=== PATIENT | male | born 1960 | race Caucasian/White ===

== ENCOUNTER 2016-06-11 13:42 | Inpatient (IN) | payer OTHER ==
[~2016-06-11] VITALS: Ht 167.6 cm; Wt 73.5 kg
[2016-06-11 13:42] VITALS: BP 120/77; PULSE 165; RESP 16; TEMP 97.7; O2SAT 96
[~2016-06-11 13:42] MED LIST: BUSP10TA3 PO; CAR30 PO; DABI150C PO; DIGO125T79 PO; FAMO20TA8 PO; FOLI-43 PO; IPRA14.73 IH; IPRA4AER IH; LIB10 PO; LIB25 PO; METO50TA7 PO; PANT40TA4 PO; PROP225T2 PO; THIA100T13 PO; THIA50TA PO
--- NOTE | 2016-06-11 13:43 | NUR ---
Telemetry strip printed and interpreted as uncontrolled a-fib. HR: 176
--- NOTE | 2016-06-11 13:46 | NUR ---
Tanya bailey in [facility] - 06/11/16 at 1424 by SDMTWA Telemetry strip printed and interpreted as RVR. HR: 176
--- NOTE | 2016-06-11 13:50 | NUR ---
Patient to ER bed 4 to gown for evaluation. Side rails up.
[2016-06-11] MEDS ORDERED: DILTIAZEM HCL 25 MG/5 ML VIAL IVP ONE (14:00)
[2016-06-11] MEDS ORDERED: LORazepam 2 MG/ML VIAL (FOR ER USE) IVP ONE (14:00)
[2016-06-11] MEDS ORDERED: DILTIAZEM HCL 125 MG in D5W 100 ML IV ONE ×2 (14:00→14:30)
--- NOTE | 2016-06-11 14:08 | NUR ---
Report given to mo ward
--- NOTE | 2016-06-11 14:12 | NUR ---
Patient to ER with IV 20G placed by EMT. IV patent, no signs of infiltration
[2016-06-11] MEDS ORDERED: DILTIAZEM HCL 125 MG/25 ML VIAL IV ONE (14:15)
[2016-06-11 14:19] LABS: BASOPHILS # (AUTO) 0.2 K/uL (0.0-0.2); BASOPHILS % (AUTO) 1.8 % (0.0-2.0); EOSINOPHILS % (AUTO) 0.2 % (0.0-4.0); HEMATOCRIT 46.3 % (36-54); HEMOGLOBIN 15.4 g/dL (14.0-18.0); LYMPHOCYTES # (AUTO) 1.1 K/uL (1.0-5.5); LYMPHOCYTES % (AUTO) 9.7 % (20.5-51.5); MEAN CORPUSCULAR HEMOGLOBIN 32 pg (27-31); MEAN CORPUSCULAR HGB CONC 33 % (32-36); MEAN CORPUSCULAR VOLUME 96 fL (79.0-98.0); MONOCYTES # (AUTO) 1.1 K/uL (0.0-1.0); MONOCYTES % (AUTO) 9.6 % (1.7-9.3); NEUTROPHILS # (AUTO) 8.8 K/uL (1.8-7.7); NEUTROPHILS % (AUTO) 78.7 % (40.0-70.0); PLATELET COUNT (AUTO) 107 K/uL (130-430); RED BLOOD CELL COUNT(AUTO) 4.84 MIL/uL (4.2-6.2); RED CELL DISTRIBUTION WIDTH 14.6 % (9.0-15.0); WHITE BLOOD COUNT (AUTO) 11.2 K/uL (4.8-10.8)
[2016-06-11 14:28] LABS: CALCIUM 9.2 mg/dL (8.4-11.0); CREATININE 1.34 mg/dL (0.55-1.30); POTASSIUM 3.3 mmol/L (3.5-5.1)
[2016-06-11 14:29] LABS: INR 1.1 (0.80-1.20); PROTHROMBIN TIME 12.1 SECS (9.5-12.5)
[2016-06-11 14:36] LABS: TOTAL BILIRUBIN 4.3 mg/dL (0.0-1.0)
[2016-06-11 14:37] LABS: ALBUMIN 4.5 g/dL (3.4-4.8); TOTAL PROTEIN, SERUM 8.7 g/dL (6.4-8.3)
--- NOTE | 2016-06-11 14:40 | NUR ---
# 22 gauge angiocath placed to RIGHT HAND. Use of asceptic technique. Opsite placed over site. Blood return noted. Flushed with 10 cc of normal saline. No evidence of infiltration noted. Patient tolerated well.
--- NOTE | 2016-06-11 14:50 | NUR ---
Patient does not meet SEPSIS protocol
[2016-06-11] MEDS ORDERED: HYDR-1189 PO (14:51)
--- NOTE | 2016-06-11 14:52 | NUR ---
Medication reconciliation completed with information provided by - patient states lybrium & norco, does not know how often or how many mgs. Any prior medication reconciliation on file was reviewed and corrected.
[2016-06-11] MEDS ORDERED: MAGNESIUM SULFATE 50 ML IV ONE (15:00)
[2016-06-11] MEDS ORDERED: POTASSIUM CHLORIDE 40 MEQ in D5W 250 ML IV ONE (15:00)
[2016-06-11] MEDS ORDERED: POTASSIUM CHLORIDE 20 MEQ TAB.PRT.SR PO ONE (15:00)
[2016-06-11] MEDS ORDERED: NS 500 ML IV ONE (15:00)
--- NOTE | 2016-06-11 15:03 | NUR ---
Patient states "i can't give any urine, i do not need to pee" Patient refuses catheter.
--- NOTE | 2016-06-11 15:09 | NUR ---
Patient will be admitted to care of DR GHOSH. Admitted to TELE IN unit. Will go to room 131B. Belongings list completed. Summary report printed. Report given to RN.
[2016-06-11] MEDS ORDERED: FOLIC ACID 1 MG, THIAMINE HCL 100 MG, MAGNESIUM SULFATE 1 GM, MVI 10 ML in NACL 0.9% 1,... IV ONE (15:15)
[2016-06-11] MEDS ORDERED: ACETAMINOPHEN 325 MG TABLET PO PRN (15:15)
--- NOTE | 2016-06-11 15:29 | NUR ---
Transfer to [facility] via ACLS protocol. Licensed nurse present. IV present no signs or symptoms of infiltration.
--- NOTE | 2016-06-11 15:57 | NUR ---
ADMIT NOTE Received pt from ER to the floor with a diagnosis of Uncontrolled A.Fib. Admission process initiated. patient oriented to pain management, safety and call light-teach back done.
--- NOTE | 2016-06-11 16:15 | NUR ---
Cardiology consult Order received for a consult with Dr Olivares for uncontrolled afib. Spoke with Esbi at his office. Will follow up as needed.
[2016-06-11 16:32] VITALS: BP 121/79; PULSE 104; RESP 16; TEMP 99; O2SAT 100
--- NOTE | 2016-06-11 17:00 | NUR ---
NOTES RECEIVED PATIENT ON BED AWAKE.BREATHING EVEN AND UNLABORED COMPLAINING OF MILD PAIN TO LOWER BACK.WITH CARDIZEM DRIP RUNNING AT 10ML/HR;TOLERATING WELL.WITH K-RIDER AT 68 ML/HR;TOLERATING WELL.BODY CHECK DONE;WITH BLACK SCAB TO LEFT KNEE;PER PATIENT HE GOT IT WHEN HE FELL A FEW WEEKS AGO.SAFETY AND FALL PRECAUTIONS IN PLACE.CALL LIGHT WITHIN REACH.ORIENTED TO ROOM
--- NOTE | 2016-06-11 17:11 | NUR ---
NOTES CAME AND EXAMINED THE PATIENT;WITH ORDERS AND CARRIED OUT
--- NOTE | 2016-06-11 18:19 | NUR ---
NOTES CHECKED PATIENT'S HEART RATE;98-110;NO ACUTE DISTRESS
--- NOTE | 2016-06-11 18:42 | NUR ---
CLOSING NOTES PATIENT ON BED ASLEEP.BREATHING EVEN AND UNLABORED STILL WITH HEART RATE FLUCTUATIONS FROM 90-110.NO COMPLAIN OF PAIN OR DISCOMFORT.IVF INFUSING WELL WITH K-RIDER;TOLERATING WELL;NO SIGNS AND SYMPTOMS OF INFILTRATION.SAFETY AND FALL PRECAUTIONS IN PLACE.CALL LIGHT WITHIN REACH.WILL ENDORSE TO NEXT SHIFT ACCORDINGLY
[2016-06-11 20:00] VITALS: BP 117/65; PULSE 102; RESP 18; TEMP 98; O2SAT 97
--- NOTE | 2016-06-11 20:00 | NUR ---
Initial Notes Received patient resting in bed, alert, awake, oriented. Patient denies any acute distress or pain at this time. Patient breathing even and unlabored on room air. IV site patent/clean/dry. Educated patient on use of call light for assistance and fall precautions. Fall precautions in place, side rails up x3, bed lowest position, room close to nursing station. Patient refusing non-slip socks and bed alarm at this time. Needs addressed, will continue to monitor. Urine sample sent to lab for ordered testing.
[2016-06-11 20:13] LABS: BILIRUBIN,URINE 2+ (NEGATIVE); CLARITY/URINE SL HAZY (CLEAR); COLOR,URINE ORANGE (YELLOW); GLUCOSE,URINE NEGATIVE (NEGATIVE); KETONES,URINE 3+ (NEGATIVE); LEUKOCYTE ESTERASE ,URINE NEGATIVE (NEGATIVE); NITRITE, URINE NEGATIVE (NEGATIVE); PROTEIN URINE 2+ (NEGATIVE)
[2016-06-11 20:17] LABS: BLOOD, URINE TRACE (NEGATIVE)
[2016-06-11 20:32] LABS: BACTERIA,URINE FEW /HPF (None Seen); FINE GRANULAR CASTS,URINE 0-10 /LPF (None Seen); MUCUS,URINE 1+ /LPF (None Seen); RBC,URINE NONE SEEN /HPF (0-3); WBC,URINE 0-3 /HPF (0-3)
[2016-06-11] MEDS: DILTIAZEM HCL 60 MG TABLET PO SCH (21:10)
[2016-06-11] MEDS: LORazepam 2 MG/ML VIAL IVP PRN (21:10)
--- NOTE | 2016-06-11 22:00 | NUR ---
Rounds Patient resting in bed with eyes closed, easily aroused upon nurse entering room. Patient denies any acute distress or pain at this time. Breathing even and unlabored. Needs addressed. Call light in hand, fall precautions in place. Will continue to monitor.
[2016-06-11 23:48] VITALS: BP 109/59; PULSE 84; RESP 18; TEMP 96.8; O2SAT 97
--- NOTE | 2016-06-12 00:10 | NUR ---
Rounds Rounds Patient resting in bed with eyes closed. No acute distress noted, breathing even and unlabored. Call light in hand, fall precautions in place. Will continue to monitor for changes and safety.
--- NOTE | 2016-06-12 02:01 | NUR ---
Rounds Patient continue to be resting in bed with eyes closed. No distress noted, breathing even and unlabored. Call light in hand, fall precautions in place. Will continue to monitor.
--- NOTE | 2016-06-12 04:17 | NUR ---
Rounds Patient resting in bed, awake. Patient denies any acute distress or pain. Breathing even and unlabored. Snack given to patient, needs addressed. Call light in hand, will continue to monitor.
[2016-06-12 04:27] VITALS: BP 117/68; PULSE 93; RESP 18; TEMP 97.2; O2SAT 94
[2016-06-12] MEDS: LORazepam 2 MG/ML VIAL IVP PRN ×2 (05:02→21:14)
[2016-06-12] MEDS: DILTIAZEM HCL 60 MG TABLET PO SCH (05:02)
--- NOTE | 2016-06-12 06:33 | NUR ---
Closing Notes Patient resting in bed bed with eyes closed, easily aroused. Patient denies any acute distress or pain at this time. Breathing even and unlabored. IV site patent/clean/dry. Patient currently sinus on monitor. Needs address throughout shift. Call light in hand, fall precautions in place. Will continue to monitor for changes and safety, and endorse all patient care/needs to oncoming nurse.
[2016-06-12 07:29] LABS: BASOPHILS % (AUTO) 0.4 % (0.0-2.0); EOSINOPHILS # (AUTO) 0.1 K/uL (0.0-0.4); EOSINOPHILS % (AUTO) 1.3 % (0.0-4.0); HEMATOCRIT 36.8 % (36-54); LYMPHOCYTES # (AUTO) 1.2 K/uL (1.0-5.5); LYMPHOCYTES % (AUTO) 19.6 % (20.5-51.5); MEAN CORPUSCULAR HEMOGLOBIN 33 pg (27-31); MEAN CORPUSCULAR HGB CONC 35 % (32-36); MEAN CORPUSCULAR VOLUME 94 fL (79.0-98.0); MONOCYTES % (AUTO) 15.7 % (1.7-9.3); NEUTROPHILS # (AUTO) 3.8 K/uL (1.8-7.7); PLATELET COUNT (AUTO) 59 K/uL (130-430); RED BLOOD CELL COUNT(AUTO) 3.94 MIL/uL (4.2-6.2); RED CELL DISTRIBUTION WIDTH 14.6 % (9.0-15.0); WHITE BLOOD COUNT (AUTO) 6.1 K/uL (4.8-10.8)
[2016-06-12 07:44] LABS: CALCIUM 8.9 mg/dL (8.4-11.0); CREATININE 1.31 mg/dL (0.55-1.30); POTASSIUM 3.8 mmol/L (3.5-5.1)
[2016-06-12 07:48] LABS: ALBUMIN 3.7 g/dL (3.4-4.8); BILIRUBIN,DIRECT 1.9 mg/dL (0.0-0.3); TOTAL BILIRUBIN 3.6 mg/dL (0.0-1.0); TOTAL PROTEIN, SERUM 7.3 g/dL (6.4-8.3)
[2016-06-12 08:22] VITALS: BP 115/71; PULSE 94; RESP 16; TEMP 97.7; O2SAT 93
--- NOTE | 2016-06-12 08:23 | NUR ---
Initial Note Patient A/O x4. Respirations even and unlabored. IV access patent. Denies chest pain and generalized discomfort at this time.Use of call light reviewed with patient. Bed in lowest and locked position. Fall and safety precautions in place. Encouraged patient to call for assistance, patient acknowledged understanding.
[2016-06-12] MEDS ORDERED: METOPROLOL SUCCINATE 50 MG TAB.SR.24H (TOPROL XL) PO ONE ×2 (09:30→10:15)
[2016-06-12] MEDS: THIAMINE HCL 100 MG TABLET PO SCH (09:30)
[2016-06-12] MEDS ORDERED: THIAMINE HCL 100 MG TABLET PO ONE (10:15)
[2016-06-12 11:31] VITALS: BP 110/68; PULSE 81; RESP 16; TEMP 98.1; O2SAT 97
[2016-06-12 11:35] VITALS: Ht 167.6 cm; Wt 73.5 kg
--- NOTE | 2016-06-12 15:34 | NUR ---
Notes Patient denies nausea, vomiting. Stated he is tolerating diet and has been drinking lots of water.
[2016-06-12 15:39] VITALS: BP 102/63; PULSE 73; RESP 16; TEMP 97.1; O2SAT 96
--- NOTE | 2016-06-12 16:13 | NUR ---
RETAIL INTERIOR DESIGNER NOTE: Pt referred to Fire Sprinkler Apparatus Inspector by MD due to ETOH abuse. Pt is known to Fire Sprinkler Apparatus Inspector from previous admissions. According to pt's chart, pt is a 55 year old male admitted with the diagnosis of Uncontrolled Atrial Fibrillation, ETOH abuse. Pt has a history of Hyperlipidemia, Hypertension, alcoholism, and chronic back pain. GENERAL REPAIRER met with pt at bedside. Pt appears to be alert and oriented. Pt presents with calm and pleasant demeanor. GENERAL REPAIRER provided pt with substance abuse resources. GENERAL REPAIRER offered to provided pt with Alcoholics Anonymous information, but pt declined. Pt reports that he drinks 6 drinking glasses of rum per day. Pt states that when he experiences back pain and the pain medication does not help, pt starts drinking more. Pt reports that he did not eat much the two days prior to admission and due to the drinking, pt became dehydrated. Pt reports that he has plenty of food at home and is independent with all ADL's including cooking his own meals. Pt states that he lives in an apartment by himself. Pt's mother lives in [place] and pt's sister lives in [place]. Pt reports that his back is feeling much better since he was admitted to the hospital. Pt states that he spoke with his MD, Dr. Saez, and the MD is recommending physical therapy to help treat pt's back pain. Pt reports that he has not done physical therapy in the past and is open to trying it to help with his back pain. Pt did not express any other needs or concerns at this time. GENERAL REPAIRER encouraged pt to contact Fire Sprinkler Apparatus Inspector if any needs or concerns arise. GENERAL REPAIRER updated pt's Nurse, Derrek, regarding resources provided to pt. Fire Sprinkler Apparatus Inspector will continue to remain available and follow up as needed.
--- NOTE | 2016-06-12 18:36 | NUR ---
Closing Note Patient needs met throughout shift. Hourly rounds completed. Patient remained free of acute distress. Tolerated diet well. Ambulated to restroom, steady gait. Had bowel movement. Will continue to monitor until patient care is endorsed to oncoming shift nurse.
[2016-06-12 20:00] VITALS: BP 113/66; PULSE 85; RESP 18; TEMP 97.5; O2SAT 97
--- NOTE | 2016-06-12 20:00 | NUR ---
Initial Notes Received patient resting in bed, awake, alert, oriented. Patient denies any acute distress or pain at this time. Breathing even and unlabored. Vital signs stable. IV site to left AC patent/clean/dry. Educated patient on use of call light for assistance and fall precautions, patient verbalized understanding. Call light in hand, will continue to monitor.
--- NOTE | 2016-06-12 22:02 | NUR ---
Rounds Patient resting in bed, awake watching TV. Patient denies any acute distress or pain at this time. Needs addressed. Call light in hand, will continue to monitor.
[2016-06-12 23:57] VITALS: BP 100/58; PULSE 68; RESP 18; TEMP 98.3; O2SAT 96
--- NOTE | 2016-06-13 | NUR ---
Rounds Patient resting in bed, awake. Patient denies any acute distress or pain. Breathing even and unlabored. Needs addressed, call light in hand. Will continue to monitor.
--- NOTE | 2016-06-13 02:00 | NUR ---
Rounds Patient resting in bed, awake on phone. Patient denies any acute distress or pain at this time. Breathing even and unlabored. Needs addressed. Call light in hand, will continue to monitor.
[2016-06-13 04:03] VITALS: BP 115/71; PULSE 65; RESP 18; TEMP 98.4; O2SAT 97
--- NOTE | 2016-06-13 04:05 | NUR ---
Rounds Patient resting in bed with eyes closed, easily aroused. Patient denies any acute distress or pain at this time. Needs addressed, call light in hand. Will continue to monitor.
--- NOTE | 2016-06-13 06:34 | NUR ---
Closing Notes Patient resting in bed, awake watching TV. Patient denies any acute distress or pain. Breathing even and unlabored. IV site patent/clean/dry. Needs addressed throughout shift. Call light in hand, fall precautions in place. Will continue to monitor for changes and safety, and endorse all patient care/needs to oncoming nurse.
--- NOTE | 2016-06-13 08:00 | NUR ---
Pt inroom in bed resting @ this time pt has no c/o any pain or discomfort @ this time nurse continue to monitor pt
[2016-06-13] MEDS: THIAMINE HCL 100 MG TABLET PO SCH (08:54)
[2016-06-13 08:55] VITALS: BP 107/57; PULSE 82; RESP 18; TEMP 98.3; O2SAT 98
[2016-06-13] MEDS ORDERED: METOPROLOL SUCCINATE 50 MG TAB.SR.24H (TOPROL XL) PO SCH (09:00)
--- NOTE | 2016-06-13 10:35 | NUR ---
Pt remain in room in bed @ this time pt is medication complaint took AM medication no adverse reaction noticed nurse continue to monitor
--- NOTE | 2016-06-13 12:20 | NUR ---
Pt in bed watching TV @ this time no c/o any discomfort @ this time
[2016-06-13 12:42] VITALS: BP_SYST 106; BP_SYST 111; BP_DIAS 67; BP_DIAS 72; PULSE 66; PULSE 71; RESP 17; RESP 18; TEMP 97.1; TEMP 97.9; O2SAT 96; O2SAT 98
--- NOTE | 2016-06-13 14:10 | NUR ---
D/C Patient Patient given medication reconciliation form and D/C instructions. Exit Care provided. Patient verbalized understanding. MD discussed with patient the results and treatment provided. Ambulatory with steady gait for discharge to home. Patient in stable condition, ID band removed. IV catheter removed, intact and dressing applied, no active bleeding. Rx of [] given. Patient educated on pain management. All belongings sent with patient.
--- NOTE | 2016-06-17 14:53 | NUR ---
Discharge Follow Up Phone Calls: MANAGER E LEARNING called and left voice mails for pt ([phone]) on 06/14/16 and today. Pt called back today. Pt states that he is doing well; there are no questions regarding discharge or medication instructions; pt has a follow up appointment with PCP, Dr. Saez, scheduled for 06/21/16. Pt did not express any other needs or concerns and denied the need for additional follow up at this time. No further follow up phone calls required at this time.
== END 2016-06-13 13:50 | disposition home or self-care (01) | DRG 309 ==
LOC: SED 13:42 → SMU 15:01 → STU 15:10
PROVIDERS: ADMIT Internal Medicine; ATTEND Internal Medicine
DX: I48.0 Paroxysmal atrial fibrillation (principal); E46 Unspecified protein-calorie malnutrition; E78.5 Hyperlipidemia, unspecified; F10.20 Alcohol dependence, uncomplicated; F17.210 Nicotine dependence, cigarettes, uncomplicated; I10 Essential (primary) hypertension; K74.60 Unspecified cirrhosis of liver; G89.29 Other chronic pain; M54.9 Dorsalgia, unspecified; Z68.26 Body mass index [BMI] 26.0-26.9, adult
CPT/HCPCS: 36415; 71010; 80053; 81000-TC; 82248-TC; 83880; 84484; 85025; 85610-TC; 87081; 93005; 96361; 96374; 96375; 99291; J2060; J3475; J3480; J3490; J7050; J7060

== ENCOUNTER 2016-07-06 22:12 | Inpatient (IN) | payer OTHER ==
[2016-06-12 11:35] VITALS: Ht 167.6 cm; Wt 74.8 kg
[~2016-07-06] VITALS: Ht 167.6 cm; Wt 74.8 kg
[~2016-07-06 22:12] MED LIST changes: +HYDR-1189 PO
[2016-07-06 22:17] VITALS: BP 137/85; PULSE 136; RESP 16; TEMP 97.7; O2SAT 96
--- NOTE | 2016-07-06 22:20 | NUR ---
Patient to ER bed 8 to gown for evaluation. Side rails up. Report given to CHACORTA
--- NOTE | 2016-07-06 22:30 | NUR ---
DR. PEREZ AT BEDSIDE EXAMINING THE PT.
--- NOTE | 2016-07-06 22:40 | NUR ---
PT. TO ER AAOx4 C/O HAND TREMORS, DEHYDRATION, HEAVY DRINKING, STATES THAT HIS HEART FEELS RAISING, LAST DRINK WAS THIS MORNING, ADMITA TO HEAVY DRINKING, STATES HE THINKS HE MIGHT BE GOING THROUGH WITHDRAWALS, NO C/O PAIN, DENIES CHEST PAIN, LUNGS CLEAR TO AUSCULTATION
[2016-07-06] MEDS ORDERED: NACL 0.9% 1,000 ML IV ONE (22:44)
--- NOTE | 2016-07-06 23:00 | NUR ---
# 20 gauge angiocath placed to RAC. Use of asceptic technique. Opsite placed over site. Blood return noted. Flushed with 10 cc of normal saline. No evidence of infiltration noted. Patient tolerated well.
--- NOTE | 2016-07-06 23:08 | NUR ---
X RAY AT BEDSIDE
[2016-07-06] MEDS ORDERED: KETOROLAC TROMETHAMINE 30 MG VIAL IVP ONE (23:15)
[2016-07-06 23:27] LABS: BASOPHILS # (AUTO) 0.3 K/uL (0.0-0.2); BASOPHILS % (AUTO) 2.7 % (0.0-2.0); EOSINOPHILS # (AUTO) 0.1 K/uL (0.0-0.4); EOSINOPHILS % (AUTO) 1.4 % (0.0-4.0); HEMATOCRIT 45.7 % (36-54); HEMOGLOBIN 15.4 g/dL (14.0-18.0); LYMPHOCYTES % (AUTO) 19.3 % (20.5-51.5); MEAN CORPUSCULAR HEMOGLOBIN 32 pg (27-31); MEAN CORPUSCULAR HGB CONC 34 % (32-36); MEAN CORPUSCULAR VOLUME 94 fL (79.0-98.0); MONOCYTES # (AUTO) 0.7 K/uL (0.0-1.0); MONOCYTES % (AUTO) 7.3 % (1.7-9.3); NEUTROPHILS % (AUTO) 69.3 % (40.0-70.0); PLATELET COUNT (AUTO) 143 K/uL (130-430); RED BLOOD CELL COUNT(AUTO) 4.84 MIL/uL (4.2-6.2); RED CELL DISTRIBUTION WIDTH 14.8 % (9.0-15.0); WHITE BLOOD COUNT (AUTO) 10.1 K/uL (4.8-10.8)
[2016-07-06 23:44] LABS: CALCIUM 8.6 mg/dL (8.4-11.0); CREATININE 0.78 mg/dL (0.55-1.30); POTASSIUM 3.1 mmol/L (3.5-5.1)
[2016-07-06 23:47] LABS: ALBUMIN 4.1 g/dL (3.4-4.8); INR 1.1 (0.80-1.20); PROTHROMBIN TIME 11.8 SECS (9.5-12.5); TOTAL PROTEIN, SERUM 7.7 g/dL (6.4-8.3)
[2016-07-07] VITALS (14 sets, daily range): BP systolic 84–132; BP diastolic 45–86; PULSE 78–142; RESP 13–20; TEMP 97.4–98.8; O2SAT 92–98
[2016-07-07] MEDS ORDERED: LORazepam 1 MG TABLET PO ONE
--- NOTE | 2016-07-07 00:30 | NUR ---
Medication reconciliation - patient states no meds for Afib, also states that he is suppored to take antidepressant med but has not taken it in a long time
[2016-07-07 00:38] LABS: BILIRUBIN,URINE NEGATIVE (NEGATIVE); BLOOD, URINE NEGATIVE (NEGATIVE); CLARITY/URINE CLEAR (CLEAR); COLOR,URINE YELLOW (YELLOW); GLUCOSE,URINE NEGATIVE (NEGATIVE); KETONES,URINE TRACE (NEGATIVE); LEUKOCYTE ESTERASE ,URINE NEGATIVE (NEGATIVE); NITRITE, URINE NEGATIVE (NEGATIVE); PROTEIN URINE TRACE (NEGATIVE)
[2016-07-07 00:45] LABS: BACTERIA,URINE RARE /HPF (None Seen); MUCUS,URINE None Seen /LPF (None Seen); RBC,URINE 0-3 /HPF (0-3); WBC,URINE 0-3 /HPF (0-3)
[2016-07-07] MEDS ORDERED: NACL 0.9% 1,000 ML IV ONE (00:45)
[2016-07-07] MEDS ORDERED: ONDANSETRON HCL 4 MG/2 ML VIAL IVP ONE (00:45)
[2016-07-07 00:47] LABS: BARBITURATE, URINE NEGATIVE (NEG <=200); BENZODIAZEPINE, URINE POSITIVE (NEG <=150); CANNABINOID, URINE NEGATIVE (NEG <=50); COCAINE, URINE NEGATIVE (NEG <=150); METHAMPHETAMINES SCREEN,URINE NEGATIVE (NEG <=500); OPIATE, URINE NEGATIVE (NEG <=100); PHENCYCLIDINE SCREEN,URINE NEGATIVE (NEG <=25); UR TRICYCLIC ANTIDEPRESSANTS NEGATIVE (NEG <=300); URINE AMPHETAMINE NEGATIVE (NEG <=500); URINE METHADONE NEGATIVE (NEG <=200); URINE OXYCODONE SCREEN NEGATIVE (NEG <=100); URINE PROPOXYPHENE SCREEN NEGATIVE (NEG <=300)
--- NOTE | 2016-07-07 00:57 | NUR ---
Patient will be admitted to care of DR BRADY. Admitted to ICU unit. Will go to room 8. Belongings list completed. Summary report printed. Report given to LYUDMILA.
--- NOTE | 2016-07-07 01:00 | NUR ---
Kdur 60mEq PO STAT order by MD Marcano given by Carole COREAS
--- NOTE | 2016-07-07 01:14 | NUR ---
Transfer to ICU8 via ACLS protocol. Licensed nurse present. IV present no signs or symptoms of infiltration.
[2016-07-07] MEDS ORDERED: DILTIAZEM HCL 240 MG CAP.SR.24H PO ONE (01:15)
[2016-07-07] MEDS ORDERED: DILTIAZEM HCL 25 MG/5 ML VIAL IVP PRN (01:15)
[2016-07-07] MEDS ORDERED: POTASSIUM CHLORIDE 20 MEQ TAB.PRT.SR PO ONE (01:15)
[2016-07-07] MEDS ORDERED: FOLIC ACID 1 MG, THIAMINE HCL 100 MG, MAGNESIUM SULFATE 1 GM, MVI 10 ML in NACL 0.9% 1,... IV ONE (01:15)
[2016-07-07] MEDS ORDERED: POTASSIUM CHLORIDE 20 MEQ TAB.PRT.SR ONE (01:19)
--- NOTE | 2016-07-07 01:45 | NUR ---
Admission Pt awake alert oriented x 4. Clear speech. Dr. Marcano admitting physician. breathing symmetrically. Non labored breathing RA at 94% at the time. IV on the right AC saline locked. Safety precaution in place. Seizure precaution initiated, HOB elevated. Oriented pt call light, bed and T.v. Verbalized understanding. Educated pt to use call light for assistance. Verbalized understanding. Bed in the lowest positioned, locked. call light within reach. will continue to monitor.
[2016-07-07] MEDS ORDERED: MAGNESIUM SULFATE 1 GM/2 ML VIAL ONE (01:47)
[2016-07-07] MEDS ORDERED: THIAMINE HCL 100 MG/ML VIAL ONE (01:47)
[2016-07-07] MEDS ORDERED: MVI 10 ML VIAL IV ONE (01:48)
[2016-07-07] MEDS ORDERED: FOLIC ACID 5 MG/ML VIAL IV ONE (01:55)
[2016-07-07] MEDS: LORazepam 2 MG/ML VIAL IVP PRN ×5 (01:58→20:24)
--- NOTE | 2016-07-07 03:43 | NUR ---
Pt's heart rate in 150's noted. Administered Cardizem 10mg IVP.
--- NOTE | 2016-07-07 04:45 | NUR ---
Pt's heart rate between 98- 109 BPM noted. will continue to monitor
[2016-07-07] MEDS: chlordiazePOXIDE HCL 25 MG CAPSULE PO SCH ×4 (05:18→23:30)
--- NOTE | 2016-07-07 07:15 | NUR ---
BEGINNING OF SHIFT: Received patient awake and alert x 4, cooperative, verbal, able to make needs known, sitting upright in bed.Patient is on room air, l lungs clear through out.Patient receiving LR at rate of 100cc/hr to LT AC #20, ports patent,flushing with blood return,dressing clean,dry and intact, no signs of redness,infection.Patient is able to move upper and lower extremities independently.Bed locked,in lowest position,call light within easy reach, upper side rails x 2 up, seizure pads in place, HOB elevated.Will continue to monitor.
--- NOTE | 2016-07-07 07:21 | NUR ---
Report given to melody COREAS via SBAR method to continue care.
--- NOTE | 2016-07-07 08:10 | NUR ---
Dr. Olivares aware of consult, now seeing patient
[2016-07-07] MEDS ORDERED: DILTIAZEM HCL 180 MG CAP.SR.24H PO SCH (09:00)
[2016-07-07 09:26] LABS: BASOPHILS # (AUTO) 0.1 K/uL (0.0-0.2); BASOPHILS % (AUTO) 0.7 % (0.0-2.0); EOSINOPHILS # (AUTO) 0.2 K/uL (0.0-0.4); EOSINOPHILS % (AUTO) 1.6 % (0.0-4.0); HEMATOCRIT 42.4 % (36-54); HEMOGLOBIN 14.3 g/dL (14.0-18.0); LYMPHOCYTES # (AUTO) 1.7 K/uL (1.0-5.5); MEAN CORPUSCULAR HEMOGLOBIN 32 pg (27-31); MEAN CORPUSCULAR HGB CONC 34 % (32-36); MEAN CORPUSCULAR VOLUME 95 fL (79.0-98.0); MONOCYTES # (AUTO) 0.8 K/uL (0.0-1.0); MONOCYTES % (AUTO) 7.4 % (1.7-9.3); NEUTROPHILS # (AUTO) 8.6 K/uL (1.8-7.7); NEUTROPHILS % (AUTO) 75.3 % (40.0-70.0); PLATELET COUNT (AUTO) 100 K/uL (130-430); RED BLOOD CELL COUNT(AUTO) 4.46 MIL/uL (4.2-6.2); RED CELL DISTRIBUTION WIDTH 14.8 % (9.0-15.0); WHITE BLOOD COUNT (AUTO) 11.4 K/uL (4.8-10.8)
[2016-07-07 09:43] LABS: CALCIUM 8.1 mg/dL (8.4-11.0); CREATININE 0.8 mg/dL (0.55-1.30); POTASSIUM 3.9 mmol/L (3.5-5.1)
[2016-07-07] MEDS: THIAMINE HCL 100 MG TABLET PO SCH (09:57)
[2016-07-07] MEDS: DILTIAZEM HCL 240 MG CAP.SR.24H PO SCH (09:57)
[2016-07-07] MEDS: FOLIC ACID 1 MG TABLET PO SCH (09:58)
[2016-07-07] MEDS: LR 1,000 ML IV SCH ×2 (09:58→18:23)
[2016-07-07] MEDS: PANTOPRAZOLE GRANULES PACKET 40 MG GT SCH ×2 (10:00→21:00)
--- NOTE | 2016-07-07 10:00 | NUR ---
PT UPDATE: Patient sitting upright in bed, watching television, unlabored breathing to room air.Slight tremors noted.Bed locked,in lowest position,call light within easy reach,HOB elevated,upper side rails x 2 up, seizure pads in place.Pt continues to be monitored.
--- NOTE | 2016-07-07 15:00 | NUR ---
ATIVAN: Patient presented slight visible tremors, complaining of anxiety.Patient given Ativan 1mg/0.5ml IVP over 2 minutes as ordered.Will reassess patient within 1 hour.
--- NOTE | 2016-07-07 15:45 | NUR ---
PATIENT TRANSFER: Report and plan of care given to LYUDMILA Melgar via SBAIYANA method.Patient transferring to tele unit bed 2135.Patient transferred safely on via wheel chair.Vital signs stable. Addendum: 07/07/16 at 1746 by Phillip Phillips RN Transferred to tele room 102
--- NOTE | 2016-07-07 16:26 | NUR ---
Receive Patient: Received patient from ICU, Report from LYUDMILA Fisher. Patient placed to tele monitor. VSS. Call light in reach. Continue to monitor.
--- NOTE | 2016-07-07 16:44 | NUR ---
CALLED ATTENDING , DR BRADY, RE: PAIN MEDICATION. SPOKE TO LEON
[2016-07-07] MEDS: HYDROcodone/ACETAMIN 5-325 MG TAB (NORCO/ VICODIN) PO PRN ×2 (16:58→23:30)
--- NOTE | 2016-07-07 17:41 | NUR ---
Rounds: Pt medicated for c/o pain. Pt tolerates well at this time. Call light in reach. Pt denies pain. Tremors noted to BUE, no seizure activity noted. IV intact to upper extremity infusing well with no redness or swelling noted to site. Pt is able to return demonstrate use of call light and verbalizes understanding of need to call for assist prior to ambulating. Side rails padded. Fall precautions in place. Continue to monitor pt closely.
--- NOTE | 2016-07-07 18:21 | NUR ---
Closing Note: Pt sitting semi-fowlers in bed. No acute signs of distress noted. IV intact and infusing fluids well. Call light in reach. Tremors noted. Seizure pads in place. No seizure activity noted. Side rails padded. Endorse plan of care to NICANOR RN.
--- NOTE | 2016-07-07 19:35 | NUR ---
Initial Notes Pt is A/Ox4, pleasant and cooperative. Pt denies any pain or sob at this time. POC discussed with pt and goal for the shift. Pt states that he would like to get good sleep, and have less tremors in his hands due to etoh and detox. VSS. Breathing is even and unlabored. IV to RAC #20g noted, infusing well with LR@100cc/hr. Safety precautions in place, side rails up x3, with bed in lowest, locked position, bed alarm on at all times, pt asked to call for assist in and out of bed. Pt educated field operations manager light use, and correct back demonstration noted. All needs met at this time. Call light in hand. Will continue to monitor.
--- NOTE | 2016-07-07 20:24 | NUR ---
Ativan Pt c/o bilateral hand tremors and requested Ativan at this time. Covering RN notified and medicated pt with Ativan 1mg IVP as ordered. No acute distress noted. Call light in hand. Will continue to monitor.
--- NOTE | 2016-07-07 23:30 | NUR ---
Pain Management Pt c/o lower back pain 10/12. Pt medicated with Clayton 5-325mg 1 tab as ordered for moderate pain. No acute distress noted. Call light in hand. Will continue to monitor.
--- NOTE | 2016-07-07 23:33 | NUR ---
Pain Management Pt c/o lower back pain 10/12. Pt medicated with [place]aan 5-325mg 1 Tab po as ordered for moderate pain. All scheduled medications given. Warm blanket provided. Pt states that his tremors have almost completely subsided. Pt is up watching tv. All needs met at this time. Call light in hand. Will continue to monitor.
[2016-07-08] VITALS: BP 95/56; PULSE 72; RESP 17; TEMP 97.4; O2SAT 94
--- NOTE | 2016-07-08 02:22 | NUR ---
Rounds Pt is sleeping comfortably in bed at this time. No acute distress noted. Bed alarm on. Call light within reach. Will continue to monitor.
[2016-07-08] MEDS: LORazepam 2 MG/ML VIAL IVP PRN (03:20)
--- NOTE | 2016-07-08 03:20 | NUR ---
Rounds Pt requested Ativan as ordered for anxiety at this time. Covering RN notified and medicated pt with ativan as ordered. All needs met. Call light in hand. Will continue to monitor.
[2016-07-08 04:00] VITALS: BP 105/69; PULSE 75; RESP 18; TEMP 98.9; O2SAT 95
[2016-07-08] MEDS: LR 1,000 ML IV SCH (05:21)
[2016-07-08] MEDS: chlordiazePOXIDE HCL 25 MG CAPSULE PO SCH ×3 (05:45→18:00)
--- NOTE | 2016-07-08 06:37 | NUR ---
Closing Notes Pt is awake, watching tv. Pt denies any pain, stating he feels comfortable at this time. IV intact. No acute distress or sob noted. All needs met throughout shift. Will endorse care to am nurse. Call light within reach.
[2016-07-08 07:26] LABS: BASOPHILS % (AUTO) 0.4 % (0.0-2.0); EOSINOPHILS # (AUTO) 0.3 K/uL (0.0-0.4); HEMOGLOBIN 12.5 g/dL (14.0-18.0); LYMPHOCYTES % (AUTO) 28.4 % (20.5-51.5); MEAN CORPUSCULAR HEMOGLOBIN 33 pg (27-31); MEAN CORPUSCULAR HGB CONC 35 % (32-36); MEAN CORPUSCULAR VOLUME 95 fL (79.0-98.0); MONOCYTES # (AUTO) 0.5 K/uL (0.0-1.0); MONOCYTES % (AUTO) 7.4 % (1.7-9.3); NEUTROPHILS # (AUTO) 4.3 K/uL (1.8-7.7); NEUTROPHILS % (AUTO) 59.8 % (40.0-70.0); RED CELL DISTRIBUTION WIDTH 14.6 % (9.0-15.0)
[2016-07-08 07:35] LABS: CALCIUM 8.1 mg/dL (8.4-11.0); CREATININE 0.77 mg/dL (0.55-1.30); POTASSIUM 3.5 mmol/L (3.5-5.1)
[2016-07-08 07:36] LABS: ALBUMIN 3.1 g/dL (3.4-4.8); TOTAL BILIRUBIN 2.1 mg/dL (0.0-1.0); TOTAL PROTEIN, SERUM 6.1 g/dL (6.4-8.3)
[2016-07-08 07:40] LABS: WHITE BLOOD COUNT (AUTO) 7.1 K/uL (4.8-10.8)
--- NOTE | 2016-07-08 07:41 | NUR ---
AM ROUNDS Pt sitting up in bed eating breakfast..Denies pain or palpitations. Pt states "I feel much better" ....IVF infusing well to RAC...Pt makes needs known...Call light/phone w/in reach....Will cont to monitr
[2016-07-08 07:50] VITALS: BP 120/67; PULSE 106; RESP 20; TEMP 97.3; O2SAT 94
[2016-07-08 08:35] LABS: PLATELET COUNT (AUTO) 74 K/uL (130-430)
[2016-07-08] MEDS: DILTIAZEM HCL 240 MG CAP.SR.24H PO SCH (09:00)
--- NOTE | 2016-07-08 09:04 | NUR ---
Nutrition Update Foreign Scale 18 noted. Pt admitted for AFib w/ rapid ventricular response. Diet: mechanical soft BMI: 26.6 kg/m2 RD to follow per nutrition care standards.
[2016-07-08 09:14] VITALS: BP 101/63; PULSE 74; RESP 20; TEMP 96.9; O2SAT 97
[2016-07-08] MEDS: PANTOPRAZOLE GRANULES PACKET 40 MG GT SCH (09:18)
[2016-07-08] MEDS: THIAMINE HCL 100 MG TABLET PO SCH (09:18)
[2016-07-08] MEDS: FOLIC ACID 1 MG TABLET PO SCH (09:18)
--- NOTE | 2016-07-08 11:05 | NUR ---
ROUNDS Pt stable...Comfortable..IVF continues to infuse well...Will cont to monitor
--- NOTE | 2016-07-08 13:23 | NUR ---
PT AMBULATED TO RESTROOM WITH STEADY GAIT PT STABLE...ANXIOUS TO GO HOME...AWAITING DR BRADY....WILL CONT TO MONITOR
--- NOTE | 2016-07-08 13:26 | NUR ---
PT DID NOT FEEL LIKE EATING LUNCH AT THIS TIME STATES "I WILL WAIT UNTIL DINNER TO EAT" INFORMED PT THAT DINNER WILL BE SERVED AROUND 1700, HE WAS OKAY WITH THAT...INFORMED PT TO CALL IF HE GETS HUNGRY BEFORE THAT TIME
[2016-07-08 14:27] VITALS: BP 106/72; PULSE 86; RESP 20; TEMP 98.2; O2SAT 97
--- NOTE | 2016-07-08 16:00 | NUR ---
PT ANXIOUS TO GO HOME PT STABLE...AWAITING DR BRADY
[2016-07-08] MEDS ORDERED: POTASSIUM CHLORIDE 20 MEQ TAB.PRT.SR PO ONE (17:45)
[2016-07-08 17:47] VITALS: BP 106/72; PULSE 86; RESP 20; TEMP 98.6; O2SAT 97
--- NOTE | 2016-07-08 18:10 | NUR ---
D/C Patient Patient given medication reconciliation form and D/C instructions. Exit Care provided. Patient verbalized understanding. MD discussed with patient the results and treatment provided. Ambulatory with steady gait for discharge to home. Patient in stable condition, ID band removed. IV catheter removed, intact and dressing applied, no active bleeding. Rx of CARDIZEM,K-DUR,THIAMINE,AND FOLIC ACID given. Patient educated on pain management. All belongings sent with patient.
--- NOTE | 2016-07-15 14:41 | NUR ---
Discharge Follow Up Phone Call EMPLOYEE BENEFITS ATTORNEY phoned patient, , on 07/10/16, 07/12/16, and 07/15/16 and left voicemail messages with offer of assistance and Social Service contact information. No further calls will be attempted.
== END 2016-07-08 18:10 | disposition home or self-care (01) | DRG 309 ==
LOC: SED 22:12 → SIC 07-07 01:01 → STU 07-07 16:17
PROVIDERS: ADMIT Internal Medicine; ATTEND Internal Medicine
DX: I48.0 Paroxysmal atrial fibrillation (principal); E44.1 Mild protein-calorie malnutrition; K70.10 Alcoholic hepatitis without ascites; E87.6 Hypokalemia; F17.210 Nicotine dependence, cigarettes, uncomplicated; G89.4 Chronic pain syndrome; M54.9 Dorsalgia, unspecified; Z79.899 Other long term (current) drug therapy; Z68.26 Body mass index [BMI] 26.0-26.9, adult; K74.60 Unspecified cirrhosis of liver
CPT/HCPCS: 36415; 71010; 80048; 80053; 80307; 81000-TC; 82150-TC; 83690-TC; 83735-TC; 84443-TC; 84484; 85025; 85610-TC; 85730-TC; 87081; 93005; 96361; 96374; 96375; 99285; G0482; J1885; J2060; J2405; J3411; J3475; J3490; J7030; J7120

== ENCOUNTER 2016-07-27 02:03 | Emergency (ER) | payer OTHER ==
[~2016-07-27] VITALS: Ht 167.6 cm; Wt 74.8 kg
[~2016-07-27 02:03] MED LIST changes: -BUSP10TA3 PO; -CAR30 PO; -DABI150C PO; -DIGO125T79 PO; -FAMO20TA8 PO; -FOLI-43 PO; -IPRA14.73 IH; -IPRA4AER IH; -LIB25 PO; -METO50TA7 PO; -PANT40TA4 PO; -PROP225T2 PO; -THIA100T13 PO; -THIA50TA PO
--- NOTE | 2016-07-27 02:15 | NUR ---
Placed in room 05 . Placed on monogram maker, blood pressure machine and pulse oximeter. To gown for exam. Side rails up. Report given to LYUDMILA Bangura.
--- NOTE | 2016-07-27 02:16 | NUR ---
Patient AAO x4, sitting in bed, c/o back pain 10/12 s/p fall yesterday. Patient denies chest pain, patient denies N/V/D, Denies shortness of breath. Hx: of alcohol abuse. No acute distress noted. Will continue to monitor.
[2016-07-27 02:23] VITALS: BP_SYST 156
--- NOTE | 2016-07-27 02:30 | NUR ---
ER at bedside examining patient.
[2016-07-27 02:40] VITALS: BP_SYST 150
--- NOTE | 2016-07-27 02:40 | NUR ---
Patient given written and verbal discharge instructions by Dr. Rich and verbalizes understanding. ER MD discussed with patient the results and treatment provided. Patient in stable condition. ID arm band removed. Patient educated on pain management and to follow up with PMD. Pain Scale 0/10. Opportunity for questions provided and answered.
== END 2016-07-27 02:40 | disposition home or self-care (01) ==
LOC: SED 02:03
DX: M54.6 Pain in thoracic spine (principal); I48.91 Unspecified atrial fibrillation; K74.60 Unspecified cirrhosis of liver
CPT/HCPCS: 99281

== ENCOUNTER 2016-09-17 04:42 | Emergency (ER) | payer OTHER ==
[~2016-09-17] VITALS: Ht 167.6 cm; Wt 74.8 kg
[2016-09-17 04:42] VITALS: BP_SYST 144
[2016-09-17] MEDS ORDERED: chlordiazePOXIDE HCL 25 MG CAPSULE PO ONE (05:15)
[2016-09-17] MEDS ORDERED: NACL 0.9% 1,000 ML IV ONE (05:15)
[2016-09-17] MEDS ORDERED: PANTOPRAZOLE SODIUM 40 MG/VIAL (PROTONIX) IVP ONE (06:45)
[2016-09-17] MEDS ORDERED: KETOROLAC TROMETHAMINE 30 MG VIAL IVP ONE (06:45)
[2016-09-17 06:55] LABS: BASOPHILS % (AUTO) 0.6 % (0.0-2.0); EOSINOPHILS # (AUTO) 0.2 K/uL (0.0-0.4); EOSINOPHILS % (AUTO) 3.5 % (0.0-4.0); HEMATOCRIT 45.9 % (36-54); HEMOGLOBIN 14.9 g/dL (14.0-18.0); LYMPHOCYTES # (AUTO) 1.4 K/uL (1.0-5.5); LYMPHOCYTES % (AUTO) 21.7 % (20.5-51.5); MEAN CORPUSCULAR HEMOGLOBIN 31 pg (27-31); MEAN CORPUSCULAR HGB CONC 33 % (32-36); MEAN CORPUSCULAR VOLUME 94 fL (79.0-98.0); MONOCYTES # (AUTO) 0.5 K/uL (0.0-1.0); MONOCYTES % (AUTO) 7.1 % (1.7-9.3); NEUTROPHILS # (AUTO) 4.3 K/uL (1.8-7.7); NEUTROPHILS % (AUTO) 67.1 % (40.0-70.0); PLATELET COUNT (AUTO) 113 K/uL (130-430); RED BLOOD CELL COUNT(AUTO) 4.86 MIL/uL (4.2-6.2); RED CELL DISTRIBUTION WIDTH 14.6 % (9.0-15.0); WHITE BLOOD COUNT (AUTO) 6.4 K/uL (4.8-10.8)
[2016-09-17] MEDS ORDERED: ONDANSETRON HCL 4 MG/2 ML VIAL IVP ONE (07:00)
[2016-09-17 07:03] LABS: CALCIUM 8.6 mg/dL (8.4-11.0); CREATININE 0.73 mg/dL (0.55-1.30); POTASSIUM 3.7 mmol/L (3.5-5.1)
[2016-09-17 07:08] LABS: ALBUMIN 4.1 g/dL (3.4-4.8); TOTAL BILIRUBIN 1.3 mg/dL (0.0-1.0)
[2016-09-17 08:08] VITALS: BP_SYST 128
== END 2016-09-17 08:08 | disposition home or self-care (01) ==
LOC: SED 04:42
DX: M54.9 Dorsalgia, unspecified (principal); F10.20 Alcohol dependence, uncomplicated; I48.91 Unspecified atrial fibrillation; K74.60 Unspecified cirrhosis of liver; Z72.89 Other problems related to lifestyle; Y90.9 Presence of alcohol in blood, level not specified
CPT/HCPCS: 36415; 71010; 80053; 84484; 85025; 93005; 96361; 96374; 96375; 99285; C9113; J1885; J2405; J7030

== ENCOUNTER 2016-10-05 00:36 | Emergency (ER) | payer OTHER ==
[~2016-10-05] VITALS: Ht 167.6 cm; Wt 74.8 kg
[2016-10-05 00:40] VITALS: BP_SYST 150
[2016-10-05] MEDS ORDERED: LIB25 PO (01:05)
[2016-10-05] MEDS ORDERED: NACL 0.9% 1,000 ML IV ONE (01:07)
[2016-10-05] MEDS ORDERED: MORPHINE 2 MG/ML INJ. SYRINGE IVP ONE (01:15)
[2016-10-05 01:18] LABS: MEAN CORPUSCULAR HGB CONC 33 % (32-36); MEAN CORPUSCULAR VOLUME 95 fL (79.0-98.0); RED CELL DISTRIBUTION WIDTH 15.2 % (9.0-15.0)
[2016-10-05 01:22] LABS: BASOPHILS # (AUTO) 0.1 K/uL (0.0-0.2); EOSINOPHILS # (AUTO) 0.4 K/uL (0.0-0.4); EOSINOPHILS % (AUTO) 3.4 % (0.0-4.0); HEMATOCRIT 49.7 % (36-54); HEMOGLOBIN 16.6 g/dL (14.0-18.0); LYMPHOCYTES # (AUTO) 3.4 K/uL (1.0-5.5); LYMPHOCYTES % (AUTO) 27.2 % (20.5-51.5); MEAN CORPUSCULAR HEMOGLOBIN 32 pg (27-31); MONOCYTES # (AUTO) 0.5 K/uL (0.0-1.0); MONOCYTES % (AUTO) 3.9 % (1.7-9.3); NEUTROPHILS % (AUTO) 64.5 % (40.0-70.0); PLATELET COUNT (AUTO) 328 K/uL (130-430); RED BLOOD CELL COUNT(AUTO) 5.25 MIL/uL (4.2-6.2); WHITE BLOOD COUNT (AUTO) 12.4 K/uL (4.8-10.8)
[2016-10-05 01:39] LABS: CALCIUM 9.4 mg/dL (8.4-11.0); CREATININE 0.9 mg/dL (0.55-1.30); POTASSIUM 3.6 mmol/L (3.5-5.1)
[2016-10-05 01:44] LABS: TOTAL BILIRUBIN 0.9 mg/dL (0.0-1.0); TOTAL PROTEIN, SERUM 8.1 g/dL (6.4-8.3)
[2016-10-05 02:51] LABS: BLOOD, URINE NEGATIVE (NEGATIVE); CLARITY/URINE CLEAR (CLEAR); COLOR,URINE YELLOW (YELLOW); GLUCOSE,URINE NEGATIVE (NEGATIVE); KETONES,URINE NEGATIVE (NEGATIVE); LEUKOCYTE ESTERASE ,URINE NEGATIVE (NEGATIVE); NITRITE, URINE NEGATIVE (NEGATIVE); PH,URINE 7.5 (5.0-8.0); PROTEIN URINE TRACE (NEGATIVE)
[2016-10-05 03:03] LABS: BARBITURATE, URINE NEGATIVE (NEG <=200); BENZODIAZEPINE, URINE POSITIVE (NEG <=150); BILIRUBIN,URINE NEGATIVE (NEGATIVE); CANNABINOID, URINE NEGATIVE (NEG <=50); COCAINE, URINE NEGATIVE (NEG <=150); METHAMPHETAMINES SCREEN,URINE NEGATIVE (NEG <=500); OPIATE, URINE NEGATIVE (NEG <=100); PHENCYCLIDINE SCREEN,URINE NEGATIVE (NEG <=25); UR TRICYCLIC ANTIDEPRESSANTS NEGATIVE (NEG <=300); URINE AMPHETAMINE NEGATIVE (NEG <=500); URINE METHADONE NEGATIVE (NEG <=200); URINE OXYCODONE SCREEN NEGATIVE (NEG <=100); URINE PROPOXYPHENE SCREEN NEGATIVE (NEG <=300)
[2016-10-05 03:15] VITALS: BP_SYST 138
[2016-10-05 03:24] LABS: RBC,URINE NONE SEEN /HPF (0-3); WBC,URINE 0-3 /HPF (0-3)
[2016-10-05 03:25] LABS: BACTERIA,URINE FEW /HPF (None Seen); MUCUS,URINE None Seen /LPF (None Seen); URINE AMORPHOUS PHOSPHATES 1+ /HPF (None Seen)
== END 2016-10-05 03:15 | disposition home or self-care (01) ==
LOC: SED 00:36
DX: R10.31 Right lower quadrant pain (principal); I48.91 Unspecified atrial fibrillation; K70.30 Alcoholic cirrhosis of liver without ascites
CPT/HCPCS: 36415; 74176; 80053; 80307; 81000; 85025; 96361; 96374; 99285; G0482; J2270; J7030

== ENCOUNTER 2016-10-22 03:48 | Emergency (ER) | payer OTHER ==
[~2016-10-22] VITALS: Ht 167.6 cm; Wt 72.6 kg
[~2016-10-22 03:48] MED LIST changes: -LIB10 PO; +LIB25 PO
[2016-10-22 04:04] VITALS: BP_SYST 102
[2016-10-22] MEDS ORDERED: NACL 0.9% 1,000 ML IV ONE (04:33)
[2016-10-22] MEDS ORDERED: LORazepam 2 MG/ML VIAL (FOR ER USE) IVP ONE ×2 (04:45→05:45)
[2016-10-22] MEDS ORDERED: ADENOSINE 6MG/2ML VIAL IVP ONE ×2 (04:45→05:00)
[2016-10-22] MEDS ORDERED: ONDANSETRON HCL 4 MG/2 ML VIAL IVP ONE ×2 (04:45→06:30)
[2016-10-22 04:51] LABS: BASOPHILS # (AUTO) 0.3 K/uL (0.0-0.2); BASOPHILS % (AUTO) 2.5 % (0.0-2.0); HEMATOCRIT 48.6 % (36-54); HEMOGLOBIN 16.2 g/dL (14.0-18.0); LYMPHOCYTES # (AUTO) 0.7 K/uL (1.0-5.5); LYMPHOCYTES % (AUTO) 6.8 % (20.5-51.5); MEAN CORPUSCULAR HEMOGLOBIN 32 pg (27-31); MEAN CORPUSCULAR HGB CONC 33 % (32-36); MEAN CORPUSCULAR VOLUME 96 fL (79.0-98.0); MONOCYTES # (AUTO) 1.1 K/uL (0.0-1.0); MONOCYTES % (AUTO) 9.8 % (1.7-9.3); NEUTROPHILS # (AUTO) 8.7 K/uL (1.8-7.7); NEUTROPHILS % (AUTO) 80.9 % (40.0-70.0); PLATELET COUNT (AUTO) 100 K/uL (130-430); RED BLOOD CELL COUNT(AUTO) 5.07 MIL/uL (4.2-6.2); RED CELL DISTRIBUTION WIDTH 15.9 % (9.0-15.0); WHITE BLOOD COUNT (AUTO) 10.8 K/uL (4.8-10.8)
[2016-10-22 05:01] LABS: INR 1.3 (0.80-1.20)
[2016-10-22 05:02] LABS: CALCIUM 9.1 mg/dL (8.4-11.0); CREATININE 2.38 mg/dL (0.55-1.30); POTASSIUM 3.6 mmol/L (3.5-5.1)
[2016-10-22 05:06] LABS: ALBUMIN 4.2 g/dL (3.4-4.8); TOTAL BILIRUBIN 7.3 mg/dL (0.0-1.0); TOTAL PROTEIN, SERUM 8.4 g/dL (6.4-8.3)
[2016-10-22] MEDS ORDERED: ATENOLOL 25 MG TABLET(TENORMIN) PO ONE (06:00)
[2016-10-22 06:50] VITALS: BP_SYST 131
[2016-10-22 06:52] LABS: BILIRUBIN,URINE 3+ (NEGATIVE); BLOOD, URINE 2+ (NEGATIVE); CLARITY/URINE SL HAZY (CLEAR); COLOR,URINE ORANGE (YELLOW); GLUCOSE,URINE NEGATIVE (NEGATIVE); KETONES,URINE 3+ (NEGATIVE); LEUKOCYTE ESTERASE ,URINE NEGATIVE (NEGATIVE); NITRITE, URINE POSITIVE (NEGATIVE); PH,URINE 6.5 (5.0-8.0); PROTEIN URINE 2+ (NEGATIVE)
[2016-10-22 07:00] LABS: BACTERIA,URINE MODERATE /HPF (None Seen); WBC,URINE 0-3 /HPF (0-3)
[2016-10-22 07:01] LABS: HYALINE CASTS, URINE 0-10 /LPF (None Seen); MUCUS,URINE 1+ /LPF (None Seen)
[2016-10-22 07:07] LABS: BARBITURATE, URINE NEGATIVE (NEG <=200); BENZODIAZEPINE, URINE POSITIVE (NEG <=150); CANNABINOID, URINE NEGATIVE (NEG <=50); COCAINE, URINE NEGATIVE (NEG <=150); METHAMPHETAMINES SCREEN,URINE NEGATIVE (NEG <=500); OPIATE, URINE NEGATIVE (NEG <=100); PHENCYCLIDINE SCREEN,URINE NEGATIVE (NEG <=25); UR TRICYCLIC ANTIDEPRESSANTS NEGATIVE (NEG <=300); URINE AMPHETAMINE NEGATIVE (NEG <=500); URINE METHADONE NEGATIVE (NEG <=200); URINE OXYCODONE SCREEN NEGATIVE (NEG <=100); URINE PROPOXYPHENE SCREEN NEGATIVE (NEG <=300)
== END 2016-10-22 06:50 | disposition home or self-care (01) ==
LOC: SED 03:48
DX: I47.1 Supraventricular tachycardia (principal); K70.40 Alcoholic hepatic failure without coma; N28.9 Disorder of kidney and ureter, unspecified; F10.10 Alcohol abuse, uncomplicated; Y90.0 Blood alcohol level of less than 20 mg/100 ml
CPT/HCPCS: 36415; 71010; 80053; 80307; 81000; 83690; 83880; 84484; 85025; 85610; 85730; 87086; 93005; 96361; 96374; 96375; 96376; 99285; G0482; J0153; J2060; J2405; J7030

== ENCOUNTER 2016-10-22 14:53 | Inpatient (IN) | payer OTHER ==
[~2016-10-22] VITALS: Ht 167.6 cm; Wt 73.9 kg
[2016-10-22 15:02] VITALS: BP_SYST 107
[2016-10-22] MEDS ORDERED: NACL 0.9% 1,000 ML IV ONE (15:10)
[2016-10-22 15:33] LABS: EOSINOPHILS % (AUTO) 0.2 % (0.0-4.0); MEAN CORPUSCULAR HEMOGLOBIN 32 pg (27-31); MEAN CORPUSCULAR VOLUME 96 fL (79.0-98.0); RED CELL DISTRIBUTION WIDTH 16.1 % (9.0-15.0)
[2016-10-22 15:40] LABS: BASOPHILS # (AUTO) 0.2 K/uL (0.0-0.2); BASOPHILS % (AUTO) 2.1 % (0.0-2.0); HEMATOCRIT 43.2 % (36-54); HEMOGLOBIN 14.5 g/dL (14.0-18.0); LYMPHOCYTES # (AUTO) 0.8 K/uL (1.0-5.5); LYMPHOCYTES % (AUTO) 8.1 % (20.5-51.5); MEAN CORPUSCULAR HGB CONC 34 % (32-36); MONOCYTES % (AUTO) 9.7 % (1.7-9.3); NEUTROPHILS # (AUTO) 8.5 K/uL (1.8-7.7); NEUTROPHILS % (AUTO) 79.9 % (40.0-70.0); RED BLOOD CELL COUNT(AUTO) 4.52 MIL/uL (4.2-6.2); WHITE BLOOD COUNT (AUTO) 10.5 K/uL (4.8-10.8)
[2016-10-22 15:41] LABS: PLATELET COUNT (AUTO) 93 K/uL (130-430)
[2016-10-22 15:51] LABS: ALBUMIN 3.9 g/dL (3.4-4.8); CALCIUM 8.8 mg/dL (8.4-11.0); CREATININE 2.25 mg/dL (0.55-1.30); POTASSIUM 3.8 mmol/L (3.5-5.1); TOTAL BILIRUBIN 5.9 mg/dL (0.0-1.0); TOTAL PROTEIN, SERUM 7.9 g/dL (6.4-8.3)
[2016-10-22 16:45] VITALS: BP_SYST 108
[2016-10-22] MEDS: NACL 0.9% 1,000 ML IV SCH (18:01)
[2016-10-22 18:08] VITALS: BP_SYST 108
[2016-10-22] MEDS ORDERED: ACETAMINOPHEN 325 MG TABLET PO PRN (19:00)
[2016-10-22] MEDS ORDERED: DOCUSATE SODIUM 100 MG CAPSULE PO PRN (19:00)
[2016-10-22] MEDS ORDERED: MAGNESIUM SULFATE 50 ML IV PRN (19:00)
[2016-10-22] MEDS ORDERED: ZOLPIDEM TARTRATE 5 MG TABLET PO PRN (19:00)
[2016-10-22] MEDS ORDERED: LORazepam 2 MG/ML VIAL IVP PRN (19:00)
[2016-10-22] MEDS ORDERED: ONDANSETRON HCL 4 MG/2 ML VIAL IVP PRN (19:00)
[2016-10-22 19:30] VITALS: BP_SYST 107
[2016-10-22] MEDS: chlordiazePOXIDE HCL 25 MG CAPSULE PO SCH (20:10)
[2016-10-22] MEDS: MORPHINE 2 MG/ML INJ. SYRINGE IVP PRN (20:19)
[2016-10-23 00:17] VITALS: BP_SYST 97
[2016-10-23 04:37] VITALS: BP_SYST 94
[2016-10-23] MEDS: MORPHINE 2 MG/ML INJ. SYRINGE IVP PRN (05:22)
[2016-10-23 07:37] LABS: CALCIUM 8.2 mg/dL (8.4-11.0); CREATININE 1.78 mg/dL (0.55-1.30)
[2016-10-23 07:40] LABS: BASOPHILS % (AUTO) 0.2 % (0.0-2.0); EOSINOPHILS # (AUTO) 0.1 K/uL (0.0-0.4); HEMATOCRIT 36.3 % (36-54); HEMOGLOBIN 12.6 g/dL (14.0-18.0); LYMPHOCYTES # (AUTO) 0.7 K/uL (1.0-5.5); LYMPHOCYTES % (AUTO) 10.5 % (20.5-51.5); MEAN CORPUSCULAR HEMOGLOBIN 33 pg (27-31); MEAN CORPUSCULAR HGB CONC 35 % (32-36); MEAN CORPUSCULAR VOLUME 97 fL (79.0-98.0); MONOCYTES # (AUTO) 0.7 K/uL (0.0-1.0); MONOCYTES % (AUTO) 9.8 % (1.7-9.3); NEUTROPHILS # (AUTO) 5.6 K/uL (1.8-7.7); NEUTROPHILS % (AUTO) 77.5 % (40.0-70.0); RED BLOOD CELL COUNT(AUTO) 3.76 MIL/uL (4.2-6.2); RED CELL DISTRIBUTION WIDTH 16.2 % (9.0-15.0); WHITE BLOOD COUNT (AUTO) 7.1 K/uL (4.8-10.8)
[2016-10-23 08:00] VITALS: BP_SYST 97
[2016-10-23] MEDS: NACL 0.9% 1,000 ML IV SCH ×2 (09:16→20:25)
[2016-10-23] MEDS: chlordiazePOXIDE HCL 25 MG CAPSULE PO SCH ×2 (09:16→20:25)
[2016-10-23] MEDS ORDERED: LORazepam 2 MG/ML VIAL IVP PRN (09:45)
[2016-10-23] MEDS ORDERED: DOCUSATE SODIUM 100 MG CAPSULE PO PRN (09:45)
[2016-10-23] MEDS ORDERED: MAGNESIUM SULFATE 50 ML IV PRN (09:45)
[2016-10-23] MEDS ORDERED: MORPHINE 2 MG/ML INJ. SYRINGE IVP PRN (09:45)
[2016-10-23] MEDS ORDERED: ACETAMINOPHEN 325 MG TABLET PO PRN (09:45)
[2016-10-23] MEDS ORDERED: ONDANSETRON HCL 4 MG/2 ML VIAL IVP PRN (09:45)
[2016-10-23] MEDS ORDERED: ZOLPIDEM TARTRATE 5 MG TABLET PO PRN (09:45)
[2016-10-23] MEDS ORDERED: POTASSIUM CHLORIDE 10 MEQ TAB.PRT.SR PO PRN (09:45)
[2016-10-23 10:11] LABS: PLATELET COUNT (AUTO) 69 K/uL (130-430)
[2016-10-23] MEDS: POTASSIUM CHLORIDE 10 MEQ TAB.PRT.SR PO PRN (10:28)
[2016-10-23 12:36] VITALS: BP_SYST 106
[2016-10-23 16:15] VITALS: BP_SYST 97
[2016-10-23 20:00] VITALS: BP_SYST 100
[2016-10-24 01:00] VITALS: BP_SYST 100
[2016-10-24] MEDS: NACL 0.9% 1,000 ML IV SCH (05:52)
[2016-10-24 06:00] VITALS: BP_SYST 112
[2016-10-24 06:57] LABS: BASOPHILS % (AUTO) 0.7 % (0.0-2.0); EOSINOPHILS # (AUTO) 0.2 K/uL (0.0-0.4); HEMATOCRIT 35.9 % (36-54); HEMOGLOBIN 12.6 g/dL (14.0-18.0); LYMPHOCYTES # (AUTO) 0.9 K/uL (1.0-5.5); LYMPHOCYTES % (AUTO) 17.9 % (20.5-51.5); MEAN CORPUSCULAR HEMOGLOBIN 34 pg (27-31); MEAN CORPUSCULAR HGB CONC 35 % (32-36); MEAN CORPUSCULAR VOLUME 96 fL (79.0-98.0); MONOCYTES # (AUTO) 0.5 K/uL (0.0-1.0); MONOCYTES % (AUTO) 9.5 % (1.7-9.3); NEUTROPHILS # (AUTO) 3.3 K/uL (1.8-7.7); NEUTROPHILS % (AUTO) 67.9 % (40.0-70.0); PLATELET COUNT (AUTO) 71 K/uL (130-430); RED BLOOD CELL COUNT(AUTO) 3.73 MIL/uL (4.2-6.2); RED CELL DISTRIBUTION WIDTH 16.4 % (9.0-15.0); WHITE BLOOD COUNT (AUTO) 4.9 K/uL (4.8-10.8)
[2016-10-24 07:16] LABS: CREATININE 1.46 mg/dL (0.55-1.30); POTASSIUM 3.1 mmol/L (3.5-5.1)
[2016-10-24 08:26] VITALS: BP_SYST 118
[2016-10-24] MEDS: chlordiazePOXIDE HCL 25 MG CAPSULE PO SCH ×2 (08:26→20:36)
[2016-10-24 12:00] VITALS: BP_SYST 138
[2016-10-24 17:41] VITALS: BP_SYST 110
[2016-10-24 20:00] VITALS: BP_SYST 122
[2016-10-25 00:29] VITALS: BP_SYST 108
[2016-10-25] MEDS: NACL 0.9% 1,000 ML IV SCH ×3 (00:46→21:26)
[2016-10-25 03:27] VITALS: BP_SYST 100
[2016-10-25 06:30] LABS: BASOPHILS % (AUTO) 0.8 % (0.0-2.0); EOSINOPHILS # (AUTO) 0.2 K/uL (0.0-0.4); EOSINOPHILS % (AUTO) 4.2 % (0.0-4.0); HEMATOCRIT 36.6 % (36-54); HEMOGLOBIN 12.9 g/dL (14.0-18.0); LYMPHOCYTES % (AUTO) 21.3 % (20.5-51.5); MEAN CORPUSCULAR HEMOGLOBIN 34 pg (27-31); MEAN CORPUSCULAR HGB CONC 35 % (32-36); MEAN CORPUSCULAR VOLUME 97 fL (79.0-98.0); MONOCYTES # (AUTO) 0.5 K/uL (0.0-1.0); MONOCYTES % (AUTO) 12.2 % (1.7-9.3); NEUTROPHILS # (AUTO) 2.8 K/uL (1.8-7.7); NEUTROPHILS % (AUTO) 61.5 % (40.0-70.0); PLATELET COUNT (AUTO) 92 K/uL (130-430); RED BLOOD CELL COUNT(AUTO) 3.79 MIL/uL (4.2-6.2); RED CELL DISTRIBUTION WIDTH 16.3 % (9.0-15.0); WHITE BLOOD COUNT (AUTO) 4.5 K/uL (4.8-10.8)
[2016-10-25 06:39] LABS: BILIRUBIN,DIRECT 1.8 mg/dL (0.0-0.3); CALCIUM 8.3 mg/dL (8.4-11.0); CREATININE 1.25 mg/dL (0.55-1.30); TOTAL BILIRUBIN 2.7 mg/dL (0.0-1.0); TOTAL PROTEIN, SERUM 6.4 g/dL (6.4-8.3)
[2016-10-25 06:54] LABS: POTASSIUM 2.8 mmol/L (3.5-5.1)
[2016-10-25] MEDS: POTASSIUM CHLORIDE 10 MEQ TAB.PRT.SR PO PRN (07:04)
[2016-10-25 08:00] VITALS: BP_SYST 122
[2016-10-25] MEDS: chlordiazePOXIDE HCL 25 MG CAPSULE PO SCH ×2 (09:42→21:26)
[2016-10-25 12:00] VITALS: BP_SYST 123
[2016-10-25] MEDS: MORPHINE 2 MG/ML INJ. SYRINGE IVP PRN ×2 (12:46→21:33)
[2016-10-25 16:29] VITALS: BP_SYST 94
[2016-10-25 20:25] VITALS: BP_SYST 123
[2016-10-26 00:10] VITALS: BP_SYST 131
[2016-10-26 03:37] VITALS: BP_SYST 129
[2016-10-26] MEDS: NACL 0.9% 1,000 ML IV SCH (07:52)
[2016-10-26 08:00] VITALS: BP_SYST 112
[2016-10-26 08:12] LABS: BASOPHILS # (AUTO) 0.1 K/uL (0.0-0.2); BASOPHILS % (AUTO) 1.8 % (0.0-2.0); EOSINOPHILS # (AUTO) 0.2 K/uL (0.0-0.4); HEMATOCRIT 40.4 % (36-54); HEMOGLOBIN 13.8 g/dL (14.0-18.0); LYMPHOCYTES # (AUTO) 0.9 K/uL (1.0-5.5); LYMPHOCYTES % (AUTO) 17.4 % (20.5-51.5); MEAN CORPUSCULAR HEMOGLOBIN 33 pg (27-31); MEAN CORPUSCULAR HGB CONC 34 % (32-36); MEAN CORPUSCULAR VOLUME 96 fL (79.0-98.0); MONOCYTES # (AUTO) 0.8 K/uL (0.0-1.0); MONOCYTES % (AUTO) 15.6 % (1.7-9.3); NEUTROPHILS # (AUTO) 3.1 K/uL (1.8-7.7); NEUTROPHILS % (AUTO) 62.2 % (40.0-70.0); PLATELET COUNT (AUTO) 118 K/uL (130-430); WHITE BLOOD COUNT (AUTO) 5.1 K/uL (4.8-10.8)
[2016-10-26 08:24] LABS: CALCIUM 8.8 mg/dL (8.4-11.0); CHLORIDE 97 mmol/L (98-107); CREATININE 0.94 mg/dL (0.55-1.30); GLUCOSE 117 mg/dL (70-99); POTASSIUM 3.5 mmol/L (3.5-5.1); SODIUM SERUM 136 mmol/L (136-145); UREA NITROGEN, BLOOD 5 mg/dL (8-21)
[2016-10-26 08:28] LABS: ANION GAP < 3 (5-15); GFR AFRICAN AMERICAN 106 mL/min (>90)
[2016-10-26] MEDS: chlordiazePOXIDE HCL 25 MG CAPSULE PO SCH (09:45)
[2016-10-26 12:00] VITALS: BP_SYST 112
[2016-10-26 13:25] VITALS: BP_SYST 112
== END 2016-10-26 14:00 | disposition home or self-care (01) | DRG 438 ==
LOC: SED 14:53 → SMU 16:22
PROVIDERS: ADMIT General Practice; ATTEND General Practice
DX: K85.20 Alcohol induced acute pancreatitis without necrosis or infection (principal); N17.0 Acute kidney failure with tubular necrosis; K76.7 Hepatorenal syndrome; E87.1 Hypo-osmolality and hyponatremia; F10.10 Alcohol abuse, uncomplicated; I48.91 Unspecified atrial fibrillation; E87.6 Hypokalemia; D69.6 Thrombocytopenia, unspecified; F17.200 Nicotine dependence, unspecified, uncomplicated; Z83.3 Family history of diabetes mellitus; K74.60 Unspecified cirrhosis of liver
CPT/HCPCS: 36415; 76700-TC; 80048; 80053; 80076; 83690-TC; 83735-TC; 85025; 96360; 97110-GP; 97116-GP; 97530-GP; 99285; J2270; J7030

== ENCOUNTER 2016-11-30 07:38 | Inpatient (IN) | payer OTHER ==
[~2016-11-30] VITALS: Ht 167.6 cm; Wt 74.8 kg
[~2016-11-30 07:38] MED LIST changes: -HYDR-1189 PO
[2016-11-30 07:42] VITALS: BP_SYST 142
[2016-11-30] MEDS ORDERED: ONDANSETRON HCL 4 MG/2 ML VIAL IVP ONE (08:00)
[2016-11-30] MEDS ORDERED: LORazepam 2 MG/ML VIAL IVP ONE ×2 (08:00→11:45)
[2016-11-30] MEDS ORDERED: FOLIC ACID 1 MG, THIAMINE HCL 100 MG, MAGNESIUM SULFATE 1 GM, MVI 10 ML in NACL 0.9% 1,... IV ONE ×2 (08:15→08:30)
[2016-11-30] MEDS ORDERED: LORazepam 2 MG/ML VIAL (FOR ER USE) IVP ONE (08:15)
[2016-11-30] MEDS ORDERED: MORPHINE 4 MG/ML INJ. SYRINGE IVP ONE (08:30)
[2016-11-30 08:38] LABS: ANION GAP 27 (5-15); CALCIUM 8.3 mg/dL (8.4-11.0); CHLORIDE 89 mmol/L (98-107); CREATININE 1.16 mg/dL (0.55-1.30); GLUCOSE 162 mg/dL (70-99); POTASSIUM 3.2 mmol/L (3.5-5.1); SODIUM SERUM 136 mmol/L (136-145); UREA NITROGEN, BLOOD 6 mg/dL (8-21)
[2016-11-30 08:40] LABS: GFR AFRICAN AMERICAN 83 mL/min (>90)
[2016-11-30 08:45] LABS: ALANINE AMINOTRANSFERASE 85 U/L (12-78); ALBUMIN 4.4 g/dL (3.4-4.8); ALCOHOL, BLOOD 66 mg/dL (<10); AMYLASE 54 U/L (0-100); ASPARTATE AMINOTRANSFERASE 158 U/L (10-37); CREATINE KINASE, TOTAL 436 U/L (39-308); LIPASE 494 U/L (73-393); TOTAL BILIRUBIN 2.7 mg/dL (0.0-1.0); TOTAL PROTEIN, SERUM 8.9 g/dL (6.4-8.3)
[2016-11-30 08:51] LABS: SALICYLATE < 1 mg/dL (3-30)
[2016-11-30 08:52] LABS: ACETAMINOPHEN < 1 ug/mL (1-30)
[2016-11-30 08:54] LABS: BASOPHILS # (AUTO) 0.1 K/uL (0.0-0.2); BASOPHILS % (AUTO) 0.8 % (0.0-2.0); EOSINOPHILS # (AUTO) 0.1 K/uL (0.0-0.4); EOSINOPHILS % (AUTO) 0.9 % (0.0-4.0); HEMATOCRIT 49.3 % (36-54); HEMOGLOBIN 16.4 g/dL (14.0-18.0); LYMPHOCYTES # (AUTO) 1.9 K/uL (1.0-5.5); LYMPHOCYTES % (AUTO) 17.3 % (20.5-51.5); MEAN CORPUSCULAR HEMOGLOBIN 33 pg (27-31); MEAN CORPUSCULAR HGB CONC 33 % (32-36); MEAN CORPUSCULAR VOLUME 100 fL (79.0-98.0); MONOCYTES # (AUTO) 1.2 K/uL (0.0-1.0); NEUTROPHILS # (AUTO) 7.6 K/uL (1.8-7.7); PLATELET COUNT (AUTO) 294 K/uL (130-430); RED BLOOD CELL COUNT(AUTO) 4.96 MIL/uL (4.2-6.2); RED CELL DISTRIBUTION WIDTH 16.2 % (9.0-15.0); WHITE BLOOD COUNT (AUTO) 10.9 K/uL (4.8-10.8)
[2016-11-30 09:05] LABS: INR 1.1 (0.80-1.20); PROTHROMBIN TIME 11.8 SECS (9.5-12.5)
[2016-11-30 09:14] LABS: CKMB RELATIVE INDEX 3.6 (0.0-2.9); CREATINE KINASE MB 15.5 ng/mL (0-3.6)
[2016-11-30 09:38] VITALS: BP_SYST 131
[2016-11-30] MEDS: FOLIC ACID 1 MG, THIAMINE HCL 100 MG, MAGNESIUM SULFATE 1 GM, MVI 10 ML in NACL 0.9% 1,... IV SCH ×2 (12:48→22:38)
[2016-11-30] MEDS ORDERED: MORPHINE 2 MG/ML INJ. SYRINGE IVP PRN (13:00)
[2016-11-30] MEDS ORDERED: POTASSIUM CHLORIDE 20 MEQ TAB.PRT.SR PO ONE (13:00)
[2016-11-30] MEDS ORDERED: LORazepam 2 MG/ML VIAL IVP PRN (13:00)
[2016-11-30] MEDS ORDERED: ONDANSETRON HCL 4 MG/2 ML VIAL IVP PRN (13:00)
[2016-11-30] MEDS: MORPHINE 4 MG/ML INJ. SYRINGE IVP PRN ×3 (13:13→22:40)
[2016-11-30] MEDS: chlordiazePOXIDE HCL 25 MG CAPSULE PO SCH ×2 (15:22→21:11)
[2016-11-30 19:48] VITALS: BP_SYST 122
[2016-11-30] MEDS: POTASSIUM CHLORIDE 20 MEQ TAB.PRT.SR PO SCH (21:11)
[2016-12-01 00:07] VITALS: BP_SYST 109
[2016-12-01 04:21] VITALS: BP_SYST 107
[2016-12-01] MEDS: MORPHINE 4 MG/ML INJ. SYRINGE IVP PRN ×4 (05:37→22:07)
[2016-12-01 06:26] LABS: BASOPHILS # (AUTO) 0.1 K/uL (0.0-0.2); BASOPHILS % (AUTO) 0.7 % (0.0-2.0); EOSINOPHILS # (AUTO) 0.1 K/uL (0.0-0.4); EOSINOPHILS % (AUTO) 1.7 % (0.0-4.0); HEMATOCRIT 40.6 % (36-54); HEMOGLOBIN 13.8 g/dL (14.0-18.0); LYMPHOCYTES # (AUTO) 1.5 K/uL (1.0-5.5); LYMPHOCYTES % (AUTO) 19.6 % (20.5-51.5); MEAN CORPUSCULAR HEMOGLOBIN 34 pg (27-31); MEAN CORPUSCULAR HGB CONC 34 % (32-36); MEAN CORPUSCULAR VOLUME 100 fL (79.0-98.0); MONOCYTES # (AUTO) 0.4 K/uL (0.0-1.0); MONOCYTES % (AUTO) 4.9 % (1.7-9.3); NEUTROPHILS # (AUTO) 5.5 K/uL (1.8-7.7); NEUTROPHILS % (AUTO) 73.1 % (40.0-70.0); PLATELET COUNT (AUTO) 116 K/uL (130-430); RED BLOOD CELL COUNT(AUTO) 4.05 MIL/uL (4.2-6.2); RED CELL DISTRIBUTION WIDTH 15.5 % (9.0-15.0); WHITE BLOOD COUNT (AUTO) 7.6 K/uL (4.8-10.8)
[2016-12-01 07:11] LABS: ALBUMIN 3.3 g/dL (3.4-4.8); CALCIUM 7.9 mg/dL (8.4-11.0); CREATININE 0.89 mg/dL (0.55-1.30); TOTAL BILIRUBIN 3.5 mg/dL (0.0-1.0); TOTAL PROTEIN, SERUM 6.8 g/dL (6.4-8.3)
[2016-12-01] MEDS: FOLIC ACID 1 MG, THIAMINE HCL 100 MG, MAGNESIUM SULFATE 1 GM, MVI 10 ML in NACL 0.9% 1,... IV SCH ×3 (08:47→19:12)
[2016-12-01] MEDS: POTASSIUM CHLORIDE 20 MEQ TAB.PRT.SR PO SCH ×2 (08:47→20:42)
[2016-12-01] MEDS: chlordiazePOXIDE HCL 25 MG CAPSULE PO SCH ×3 (08:47→20:42)
[2016-12-01 09:00] VITALS: BP_SYST 121
[2016-12-01 12:35] VITALS: BP_SYST 117
[2016-12-01 16:25] VITALS: BP_SYST 107
[2016-12-01 19:55] VITALS: BP_SYST 109
[2016-12-01] MEDS: TEMAZEPAM 15 MG CAPSULE PO SCH (20:43)
[2016-12-02 01:16] VITALS: BP_SYST 109
[2016-12-02] MEDS: MORPHINE 4 MG/ML INJ. SYRINGE IVP PRN ×4 (02:06→22:55)
[2016-12-02 03:41] VITALS: BP_SYST 111
[2016-12-02 08:00] VITALS: BP_SYST 105
[2016-12-02] MEDS: chlordiazePOXIDE HCL 25 MG CAPSULE PO SCH ×3 (09:12→20:44)
[2016-12-02] MEDS: POTASSIUM CHLORIDE 20 MEQ TAB.PRT.SR PO SCH ×2 (09:12→20:44)
[2016-12-02 12:14] VITALS: BP_SYST 92
[2016-12-02] MEDS: FOLIC ACID 1 MG, THIAMINE HCL 100 MG, MAGNESIUM SULFATE 1 GM, MVI 10 ML in NACL 0.9% 1,... IV SCH (13:21)
[2016-12-02 16:43] VITALS: BP_SYST 95
[2016-12-02 20:36] VITALS: BP_SYST 112
[2016-12-02] MEDS: TEMAZEPAM 15 MG CAPSULE PO SCH (20:44)
[2016-12-03] VITALS: BP_SYST 123
[2016-12-03 04:27] VITALS: BP_SYST 104
[2016-12-03] MEDS: FOLIC ACID 1 MG, THIAMINE HCL 100 MG, MAGNESIUM SULFATE 1 GM, MVI 10 ML in NACL 0.9% 1,... IV SCH (05:29)
[2016-12-03 08:10] VITALS: BP_SYST 120
[2016-12-03] MEDS: POTASSIUM CHLORIDE 20 MEQ TAB.PRT.SR PO SCH (08:10)
[2016-12-03] MEDS: chlordiazePOXIDE HCL 25 MG CAPSULE PO SCH ×2 (08:10→15:21)
[2016-12-03 11:34] VITALS: BP_SYST 110
[2016-12-03 15:57] VITALS: BP_SYST 128
[2016-12-03 16:06] VITALS: BP_SYST 120
== END 2016-12-03 18:00 | disposition home or self-care (01) | DRG 563 ==
LOC: SED 07:38 → STU 09:16 → SMU 12-01 17:23
PROVIDERS: ADMIT Internal Medicine; ATTEND Internal Medicine
DX: S42.255A Nondisplaced fracture of greater tuberosity of left humerus, initial encounter for closed fracture (principal); F10.231 Alcohol dependence with withdrawal delirium; F17.210 Nicotine dependence, cigarettes, uncomplicated; F41.9 Anxiety disorder, unspecified; F32.9 Major depressive disorder, single episode, unspecified; Z79.899 Other long term (current) drug therapy; J44.9 Chronic obstructive pulmonary disease, unspecified; K70.30 Alcoholic cirrhosis of liver without ascites; I48.91 Unspecified atrial fibrillation; W19.XXXA Unspecified fall, initial encounter; Y93.89 Activity, other specified; Y92.89 Other specified places as the place of occurrence of the external cause; Y99.8 Other external cause status
CPT/HCPCS: 36415; 71010; 73060-TC; 80053; 82150-TC; 82550-TC; 82553-TC; 83690-TC; 83735-TC; 85025; 85610-TC; 85730-TC; 93005; 96374; 96375; 99285; G0480; G0481; G0482; J2060; J2270; J2405; J3411; J3475; J3490; J7030

== ENCOUNTER 2016-12-04 01:29 | Emergency (ER) | payer OTHER ==
[~2016-12-04] VITALS: Ht 167.6 cm; Wt 74.8 kg
[2016-12-04 01:35] VITALS: BP_SYST 126
[2016-12-04] MEDS ORDERED: BANANA BAG 1 EA, MVI 10 ML, THIAMINE HCL 100 MG, FOLIC ACID 1 MG, MAGNESIUM SULFATE 1 G... IV SCH ×5 (03:00)
[2016-12-04 03:18] LABS: ANION GAP 6 (5-15); CALCIUM 9.6 mg/dL (8.4-11.0); CHLORIDE 100 mmol/L (98-107); CREATININE 0.71 mg/dL (0.55-1.30); GLUCOSE 112 mg/dL (70-99); POTASSIUM 4.1 mmol/L (3.5-5.1); SODIUM SERUM 134 mmol/L (136-145); UREA NITROGEN, BLOOD 8 mg/dL (8-21)
[2016-12-04] MEDS ORDERED: MVI 10 ML VIAL IV ONE (03:20)
[2016-12-04] MEDS ORDERED: THIAMINE HCL 100 MG/ML VIAL ONE (03:20)
[2016-12-04] MEDS ORDERED: FOLIC ACID 5 MG/ML VIAL IV ONE (03:21)
[2016-12-04] MEDS ORDERED: MAGNESIUM SULFATE 1 GM/2 ML VIAL ONE (03:22)
[2016-12-04 03:23] LABS: ALANINE AMINOTRANSFERASE 76 U/L (12-78); ALBUMIN 3.5 g/dL (3.4-4.8); ASPARTATE AMINOTRANSFERASE 113 U/L (10-37); TOTAL BILIRUBIN 2.3 mg/dL (0.0-1.0); TOTAL PROTEIN, SERUM 7.5 g/dL (6.4-8.3)
[2016-12-04 03:24] LABS: ALCOHOL, BLOOD < 3 mg/dL (<10); GFR AFRICAN AMERICAN 147 mL/min (>90)
[2016-12-04 03:33] LABS: HEMATOCRIT 41.2 % (36-54); HEMOGLOBIN 13.7 g/dL (14.0-18.0); MEAN CORPUSCULAR HEMOGLOBIN 34 pg (27-31); MEAN CORPUSCULAR HGB CONC 33 % (32-36); MEAN CORPUSCULAR VOLUME 101 fL (79.0-98.0); PLATELET COUNT (AUTO) 100 K/uL (130-430); RED BLOOD CELL COUNT(AUTO) 4.09 MIL/uL (4.2-6.2); RED CELL DISTRIBUTION WIDTH 15.5 % (9.0-15.0); WHITE BLOOD COUNT (AUTO) 9.7 K/uL (4.8-10.8)
[2016-12-04 03:34] LABS: BASOPHILS # (AUTO) 0.1 K/uL (0.0-0.2); BASOPHILS % (AUTO) 1.5 % (0.0-2.0); EOSINOPHILS # (AUTO) 0.1 K/uL (0.0-0.4); EOSINOPHILS % (AUTO) 1.2 % (0.0-4.0); LYMPHOCYTES # (AUTO) 1.4 K/uL (1.0-5.5); LYMPHOCYTES % (AUTO) 14.5 % (20.5-51.5); MONOCYTES # (AUTO) 0.9 K/uL (0.0-1.0); NEUTROPHILS # (AUTO) 7.2 K/uL (1.8-7.7); NEUTROPHILS % (AUTO) 73.8 % (40.0-70.0)
[2016-12-04] MEDS ORDERED: MORPHINE 4 MG/ML INJ. SYRINGE IVP ONE (04:15)
[2016-12-04 06:46] VITALS: BP_SYST 112
[2016-12-05] MEDS ORDERED: BANANA BAG 1 EA, MVI 10 ML, THIAMINE HCL 100 MG, FOLIC ACID 1 MG, MAGNESIUM SULFATE 1 G... IV SCH ×5 (04:00)
== END 2016-12-04 06:46 | disposition home or self-care (01) ==
LOC: SED 01:29
DX: S20.20XA Contusion of thorax, unspecified, initial encounter (principal); I48.91 Unspecified atrial fibrillation; K74.60 Unspecified cirrhosis of liver; F10.10 Alcohol abuse, uncomplicated; W18.2XXA Fall in (into) shower or empty bathtub, initial encounter; Y93.E1 Activity, personal bathing and showering; Y92.091 Bathroom in other non-institutional residence as the place of occurrence of the external cause; Y99.8 Other external cause status
CPT/HCPCS: 36415; 71010; 80053; 85025; 96365; 96366; 96375; 99285; G0482; J2270; J3411; J3475; J3490; J7030

== ENCOUNTER 2016-12-29 13:03 | Emergency (ER) | payer OTHER ==
[~2016-12-29] VITALS: Ht 167.6 cm; Wt 74.8 kg
[2016-12-29 13:03] VITALS: BP_SYST 136
--- NOTE | 2016-12-29 13:03 | NUR ---
BROUGHT IN BY [facility], PLACED IN BED #7 AND PLACED ON CARDIAC MONITORING. REPORT GIVEN TO BIANCA
--- NOTE | 2016-12-29 13:24 | NUR ---
Pt came in by BLS, pt complains of lower back pain 02/11, pt states fell on his back yesterday, denies hitting head, loss of consciousness. Pt states was able to get up yesterday but crawled a little and scrapped up right knee. Pt states pain is worse today and called 911. No other injuries/complaints per pt or noted.
--- NOTE | 2016-12-29 13:45 | NUR ---
Pt went to radiology in stable condition
--- NOTE | 2016-12-29 14:10 | NUR ---
Pt returned from radiology in stable condition
--- NOTE | 2016-12-29 14:59 | NUR ---
Informed Dr Lloyd that pt was in 02/11 pain, waiting for order
[2016-12-29] MEDS ORDERED: KETOROLAC TROMETHAMINE 60 MG/2 ML VIAL IM ONE (15:00)
--- NOTE | 2016-12-29 15:27 | NUR ---
Pain medication was given to pt, no noted adverse reaction, will continue to monitor
[2016-12-29 16:16] VITALS: BP_SYST 127
--- NOTE | 2016-12-29 16:16 | NUR ---
Patient given written and verbal discharge instructions and verbalizes understanding. ER MD discussed with patient the results and treatment provided. Patient in stable condition. ID arm band removed. Rx of tramadol given. Patient educated on pain management and to follow up with PMD. Pain Scale 4. Dr Lloyd is aware, pt was given pain medication here and prescription for home, pt states will take medication when home. Opportunity for questions provided and answered.
--- NOTE | 2016-12-29 17:00 | NUR ---
Pt was picked up by taxi, wheeled to the car in stable condition
== END 2016-12-29 16:16 | disposition home or self-care (01) ==
LOC: SED 13:03
DX: S39.012A Strain of muscle, fascia and tendon of lower back, initial encounter (principal); I48.91 Unspecified atrial fibrillation; F10.10 Alcohol abuse, uncomplicated; K74.60 Unspecified cirrhosis of liver; W18.39XA Other fall on same level, initial encounter; Y93.89 Activity, other specified; Y92.89 Other specified places as the place of occurrence of the external cause; Y99.8 Other external cause status
CPT/HCPCS: 71100; 72110; 96372; 99284; J1885

== ENCOUNTER 2017-02-02 11:25 | Inpatient (IN) | payer OTHER ==
[~2017-02-02] VITALS: Ht 167.6 cm; Wt 74.8 kg
[2017-02-02 11:36] VITALS: BP_SYST 102
[2017-02-02] MEDS ORDERED: NACL 0.9% 1,000 ML IV ONE ×3 (14:00→15:45)
[2017-02-02] MEDS ORDERED: MORPHINE 4 MG/ML INJ. SYRINGE IVP ONE (14:15)
[2017-02-02 14:19] LABS: BASOPHILS # (AUTO) 0.1 K/uL (0.0-0.2); BASOPHILS % (AUTO) 0.9 % (0.0-2.0); EOSINOPHILS % (AUTO) 0.2 % (0.0-4.0); HEMATOCRIT 33.7 % (36-54); HEMOGLOBIN 11.4 g/dL (14.0-18.0); LYMPHOCYTES # (AUTO) 1.5 K/uL (1.0-5.5); LYMPHOCYTES % (AUTO) 14.1 % (20.5-51.5); MEAN CORPUSCULAR HEMOGLOBIN 34 pg (27-31); MEAN CORPUSCULAR HGB CONC 34 % (32-36); MEAN CORPUSCULAR VOLUME 100 fL (79.0-98.0); MONOCYTES # (AUTO) 1.4 K/uL (0.0-1.0); MONOCYTES % (AUTO) 13.1 % (1.7-9.3); NEUTROPHILS # (AUTO) 7.6 K/uL (1.8-7.7); NEUTROPHILS % (AUTO) 71.7 % (40.0-70.0); PLATELET COUNT (AUTO) 98 K/uL (130-430); RED BLOOD CELL COUNT(AUTO) 3.39 MIL/uL (4.2-6.2); RED CELL DISTRIBUTION WIDTH 13.8 % (9.0-15.0); WHITE BLOOD COUNT (AUTO) 10.6 K/uL (4.8-10.8)
[2017-02-02 14:29] LABS: ACETONE, SERUM SMALL (NEGATIVE)
[2017-02-02 14:31] LABS: ANION GAP 18 (5-15); CALCIUM 9.7 mg/dL (8.4-11.0); CHLORIDE 90 mmol/L (98-107); CREATININE 1.87 mg/dL (0.55-1.30); GLUCOSE 103 mg/dL (70-99); INR 1.1 (0.80-1.20); POTASSIUM 4.3 mmol/L (3.5-5.1); PROTHROMBIN TIME 12.2 SECS (9.5-12.5); SODIUM SERUM 132 mmol/L (136-145); UREA NITROGEN, BLOOD 36 mg/dL (8-21)
[2017-02-02 14:33] LABS: GFR AFRICAN AMERICAN 48 mL/min (>90)
[2017-02-02 14:35] LABS: ALANINE AMINOTRANSFERASE 72 U/L (12-78); ALBUMIN 4.4 g/dL (3.4-4.8); ASPARTATE AMINOTRANSFERASE 135 U/L (10-37); TOTAL BILIRUBIN 2.9 mg/dL (0.0-1.0)
[2017-02-02 15:10] LABS: CKMB RELATIVE INDEX 1.4 (0.0-2.9); CREATINE KINASE MB 7.9 ng/mL (0-3.6)
[2017-02-02 15:11] LABS: BILIRUBIN,URINE 3+ (NEGATIVE); BLOOD, URINE NEGATIVE (NEGATIVE); CLARITY/URINE CLEAR (CLEAR); COLOR,URINE AMBER (YELLOW); GLUCOSE,URINE NEGATIVE (NEGATIVE); KETONES,URINE 3+ (NEGATIVE); LEUKOCYTE ESTERASE ,URINE NEGATIVE (NEGATIVE); NITRITE, URINE NEGATIVE (NEGATIVE); PROTEIN URINE TRACE (NEGATIVE)
[2017-02-02 15:33] LABS: BACTERIA,URINE RARE /HPF (None Seen); HYALINE CASTS, URINE 0-10 /LPF (None Seen); MUCUS,URINE 1+ /LPF (None Seen); RBC,URINE 0-3 /HPF (0-3); WBC,URINE 0-3 /HPF (0-3)
[2017-02-02] MEDS ORDERED: HYDR-1189 PO (17:31)
[2017-02-02 17:54] VITALS: BP_SYST 119
[2017-02-02] MEDS ORDERED: HYDROcodone/ACETAMIN 5-325 MG TAB (NORCO/ VICODIN) PO ONE (19:00)
[2017-02-02] MEDS ORDERED: ONDANSETRON HCL 4 MG/2 ML VIAL IVP ONE (19:00)
[2017-02-02 19:30] VITALS: BP_SYST 107
[2017-02-02] MEDS ORDERED: ONDANSETRON HCL 4 MG/2 ML VIAL IVP PRN (21:30)
[2017-02-02] MEDS: NACL 0.9% 1,000 ML IV SCH (22:09)
[2017-02-03] VITALS (8 sets, daily range): BP systolic 90–111
[2017-02-03] MEDS: HYDROcodone/ACETAMIN 5-325 MG TAB (NORCO/ VICODIN) PO PRN ×3 (03:38→19:21)
[2017-02-03] MEDS: NACL 0.9% 1,000 ML IV SCH ×3 (05:43→20:05)
[2017-02-03 07:03] LABS: ALBUMIN 2.8 g/dL (3.4-4.8); CALCIUM 8.3 mg/dL (8.4-11.0); CREATININE 1.21 mg/dL (0.55-1.30); POTASSIUM 3.2 mmol/L (3.5-5.1); TOTAL BILIRUBIN 1.8 mg/dL (0.0-1.0)
[2017-02-03 07:43] LABS: BASOPHILS # (AUTO) 0.1 K/uL (0.0-0.2); BASOPHILS % (AUTO) 1.2 % (0.0-2.0); EOSINOPHILS # (AUTO) 0.1 K/uL (0.0-0.4); EOSINOPHILS % (AUTO) 1.3 % (0.0-4.0); HEMATOCRIT 25.3 % (36-54); HEMOGLOBIN 8.2 g/dL (14.0-18.0); LYMPHOCYTES # (AUTO) 1.2 K/uL (1.0-5.5); LYMPHOCYTES % (AUTO) 22.7 % (20.5-51.5); MEAN CORPUSCULAR HEMOGLOBIN 32 pg (27-31); MEAN CORPUSCULAR HGB CONC 33 % (32-36); MEAN CORPUSCULAR VOLUME 99 fL (79.0-98.0); MONOCYTES # (AUTO) 0.6 K/uL (0.0-1.0); MONOCYTES % (AUTO) 12.3 % (1.7-9.3); NEUTROPHILS # (AUTO) 3.1 K/uL (1.8-7.7); NEUTROPHILS % (AUTO) 62.5 % (40.0-70.0); PLATELET COUNT (AUTO) 78 K/uL (130-430); RED BLOOD CELL COUNT(AUTO) 2.55 MIL/uL (4.2-6.2); RED CELL DISTRIBUTION WIDTH 13.9 % (9.0-15.0); WHITE BLOOD COUNT (AUTO) 5.1 K/uL (4.8-10.8)
[2017-02-03] MEDS ORDERED: POTASSIUM CHLORIDE 20 MEQ TAB.PRT.SR PO ONE (11:15)
[2017-02-03] MEDS: PANTOPRAZOLE SODIUM 40 MG/VIAL (PROTONIX) IVP SCH (19:33)
[2017-02-04] MEDS: HYDROcodone/ACETAMIN 5-325 MG TAB (NORCO/ VICODIN) PO PRN (02:41)
[2017-02-04] MEDS: NACL 0.9% 1,000 ML IV SCH (02:43)
[2017-02-04 03:49] VITALS: BP_SYST 98
[2017-02-04 08:00] VITALS: BP_SYST 101
[2017-02-04 08:55] LABS: BASOPHILS % (AUTO) 0.9 % (0.0-2.0); EOSINOPHILS # (AUTO) 0.1 K/uL (0.0-0.4); EOSINOPHILS % (AUTO) 1.9 % (0.0-4.0); HEMATOCRIT 25.6 % (36-54); HEMOGLOBIN 8.7 g/dL (14.0-18.0); LYMPHOCYTES # (AUTO) 1.2 K/uL (1.0-5.5); LYMPHOCYTES % (AUTO) 26.2 % (20.5-51.5); MEAN CORPUSCULAR HEMOGLOBIN 34 pg (27-31); MEAN CORPUSCULAR HGB CONC 34 % (32-36); MEAN CORPUSCULAR VOLUME 100 fL (79.0-98.0); MONOCYTES # (AUTO) 0.5 K/uL (0.0-1.0); MONOCYTES % (AUTO) 11.7 % (1.7-9.3); NEUTROPHILS # (AUTO) 2.8 K/uL (1.8-7.7); NEUTROPHILS % (AUTO) 59.3 % (40.0-70.0); PLATELET COUNT (AUTO) 96 K/uL (130-430); RED BLOOD CELL COUNT(AUTO) 2.56 MIL/uL (4.2-6.2); RED CELL DISTRIBUTION WIDTH 14.3 % (9.0-15.0); WHITE BLOOD COUNT (AUTO) 4.6 K/uL (4.8-10.8)
[2017-02-04] MEDS: PANTOPRAZOLE SODIUM 40 MG/VIAL (PROTONIX) IVP SCH (08:57)
[2017-02-04 09:15] LABS: CALCIUM 8.6 mg/dL (8.4-11.0); CREATININE 1.01 mg/dL (0.55-1.30)
[2017-02-04 09:19] LABS: RETICULOCYTE COUNT 2.5 % (0.5-1.5)
[2017-02-04 09:24] LABS: TOTAL BILIRUBIN 1.6 mg/dL (0.0-1.0)
[2017-02-04 09:59] LABS: TOTAL IRON BIND. CAPACITY 172 ug/dL (250-450)
[2017-02-04] MEDS ORDERED: POTASSIUM CHLORIDE 20 MEQ TAB.PRT.SR PO ONE (10:15)
[2017-02-04 10:18] VITALS: BP_SYST 101
== END 2017-02-04 10:30 | disposition home or self-care (01) | DRG 683 ==
LOC: SED 11:27 → STU 17:05
PROVIDERS: ADMIT Internal Medicine; ATTEND Internal Medicine
DX: N17.9 Acute kidney failure, unspecified (principal); M62.82 Rhabdomyolysis; D69.59 Other secondary thrombocytopenia; I48.91 Unspecified atrial fibrillation; K74.60 Unspecified cirrhosis of liver; E86.0 Dehydration; F32.9 Major depressive disorder, single episode, unspecified; D50.9 Iron deficiency anemia, unspecified; F10.10 Alcohol abuse, uncomplicated; Y90.9 Presence of alcohol in blood, level not specified; M54.9 Dorsalgia, unspecified; F17.210 Nicotine dependence, cigarettes, uncomplicated; S39.92XA Unspecified injury of lower back, initial encounter; G89.29 Other chronic pain; R29.6 Repeated falls; W19.XXXA Unspecified fall, initial encounter; F41.9 Anxiety disorder, unspecified; Z91.81 History of falling; Y93.89 Activity, other specified; Y92.89 Other specified places as the place of occurrence of the external cause; Y99.8 Other external cause status
CPT/HCPCS: 36415; 36600; 71010; 80053; 81000-TC; 82009-TC; 82140-TC; 82272; 82550-TC; 82553-TC; 82607; 82728; 82746; 82803-TC; 83540-TC; 83550-TC; 83605; 83880; 84484; 85025; 85044-TC; 85379; 85610-TC; 87040-TC; 93005; 96361; 96374; 99285; C9113; J2270; J2405; J7030

== ENCOUNTER 2017-02-07 12:35 | Inpatient (IN) | payer OTHER ==
[~2017-02-07] VITALS: Ht 167.6 cm; Wt 72.6 kg
[2017-02-07 12:35] VITALS: BP_SYST 93
[~2017-02-07 12:35] MED LIST changes: +HYDR-1189 PO
[2017-02-07] MEDS ORDERED: NACL 0.9% 1,000 ML IV ONE (13:30)
[2017-02-07 13:40] LABS: BASOPHILS # (AUTO) 0.1 K/uL (0.0-0.2); EOSINOPHILS # (AUTO) 0.2 K/uL (0.0-0.4); EOSINOPHILS % (AUTO) 1.3 % (0.0-4.0); HEMATOCRIT 35.2 % (36-54); LYMPHOCYTES # (AUTO) 1.6 K/uL (1.0-5.5); LYMPHOCYTES % (AUTO) 12.5 % (20.5-51.5); MEAN CORPUSCULAR HEMOGLOBIN 34 pg (27-31); MEAN CORPUSCULAR HGB CONC 34 % (32-36); MEAN CORPUSCULAR VOLUME 101 fL (79.0-98.0); MONOCYTES # (AUTO) 1.9 K/uL (0.0-1.0); MONOCYTES % (AUTO) 14.7 % (1.7-9.3); NEUTROPHILS # (AUTO) 9.1 K/uL (1.8-7.7); NEUTROPHILS % (AUTO) 70.5 % (40.0-70.0); PLATELET COUNT (AUTO) 300 K/uL (130-430); RED CELL DISTRIBUTION WIDTH 15.1 % (9.0-15.0)
[2017-02-07 13:51] LABS: CALCIUM 10.5 mg/dL (8.4-11.0); CREATININE 0.89 mg/dL (0.55-1.30); POTASSIUM 3.7 mmol/L (3.5-5.1); WHITE BLOOD COUNT (AUTO) 12.9 K/uL (4.8-10.8)
[2017-02-07 13:55] LABS: ALBUMIN 3.6 g/dL (3.4-4.8); TOTAL BILIRUBIN 1.8 mg/dL (0.0-1.0)
[2017-02-07 14:07] LABS: INR 1.1 (0.80-1.20); PROTHROMBIN TIME 11.1 SECS (9.5-12.5)
[2017-02-07] MEDS ORDERED: cefTRIAXone 1 GM IVPB PREMIX 50 ML IV ONE ×2 (15:00→15:11)
[2017-02-07] MEDS ORDERED: DIPHENHYDRAMINE INJ 50 MG/ML VIAL IVP ONE (15:15)
[2017-02-07] MEDS ORDERED: MORPHINE 4 MG/ML INJ. SYRINGE IVP ONE (15:15)
[2017-02-07] MEDS ORDERED: DIPHENHYDRAMINE INJ 50 MG/ML VIAL ONE (16:12)
[2017-02-07] MEDS ORDERED: MORPHINE 4 MG/ML INJ. SYRINGE ONE (16:12)
[2017-02-07 17:10] LABS: BILIRUBIN,URINE 2+ (NEGATIVE); BLOOD, URINE NEGATIVE (NEGATIVE); CLARITY/URINE CLEAR (CLEAR); COLOR,URINE AMBER (YELLOW); GLUCOSE,URINE NEGATIVE (NEGATIVE); KETONES,URINE NEGATIVE (NEGATIVE); LEUKOCYTE ESTERASE ,URINE NEGATIVE (NEGATIVE); NITRITE, URINE NEGATIVE (NEGATIVE); PROTEIN URINE NEGATIVE (NEGATIVE)
[2017-02-07 17:11] LABS: BACTERIA,URINE FEW /HPF (None Seen); RBC,URINE NONE SEEN /HPF (0-3); WBC,URINE 0-3 /HPF (0-3)
[2017-02-07 17:12] LABS: MUCUS,URINE 3+ /LPF (None Seen)
[2017-02-07 17:13] LABS: BARBITURATE, URINE NEGATIVE (NEG <=200); BENZODIAZEPINE, URINE POSITIVE (NEG <=150); CANNABINOID, URINE NEGATIVE (NEG <=50); COCAINE, URINE NEGATIVE (NEG <=150); METHAMPHETAMINES SCREEN,URINE NEGATIVE (NEG <=500); OPIATE, URINE POSITIVE (NEG <=100); PHENCYCLIDINE SCREEN,URINE NEGATIVE (NEG <=25); UR TRICYCLIC ANTIDEPRESSANTS NEGATIVE (NEG <=300); URINE AMPHETAMINE NEGATIVE (NEG <=500); URINE METHADONE NEGATIVE (NEG <=200); URINE OXYCODONE SCREEN NEGATIVE (NEG <=100); URINE PROPOXYPHENE SCREEN NEGATIVE (NEG <=300)
[2017-02-07] MEDS ORDERED: PIPERACILLIN/TAZO 3.375 GM in NS 50 ML IV ONE (18:00)
[2017-02-07 18:32] VITALS: BP_SYST 125
[2017-02-07 20:00] VITALS: BP_SYST 149
[2017-02-07] MEDS ORDERED: THIAMINE HCL 100 MG TABLET PO ONE (20:30)
[2017-02-07] MEDS ORDERED: PIPERACILLIN/TAZOBACTAM 3.375 GM/VIAL (ZOSYN) IV ONE (21:11)
[2017-02-07] MEDS ORDERED: AZITHROMYCIN 500 MG/VIAL (ZITHROMAX) IV ONE ×2 (21:12→21:13)
[2017-02-07] MEDS ORDERED: cefTRIAXone 1 GM VIAL ONE ×2 (21:12→23:00)
[2017-02-07] MEDS: KCL 20 mEq in D5/0.45NS 1000mL 1,000 ML IV SCH (21:38)
[2017-02-07] MEDS: FAMOTIDINE 20 MG TABLET PO SCH (21:40)
[2017-02-07] MEDS: HYDROcodone/ACETAMIN 5-325 MG TAB (NORCO/ VICODIN) PO SCH (21:40)
[2017-02-07] MEDS: chlordiazePOXIDE HCL 25 MG CAPSULE PO SCH (21:41)
[2017-02-07 23:35] VITALS: BP_SYST 103
[2017-02-08 03:36] VITALS: BP_SYST 109
[2017-02-08 06:53] LABS: HEMATOCRIT 30.6 % (36-54); HEMOGLOBIN 10.1 g/dL (14.0-18.0); MEAN CORPUSCULAR HEMOGLOBIN 34 pg (27-31); MEAN CORPUSCULAR HGB CONC 33 % (32-36); MEAN CORPUSCULAR VOLUME 102 fL (79.0-98.0); PLATELET COUNT (AUTO) 235 K/uL (130-430); RED CELL DISTRIBUTION WIDTH 15.3 % (9.0-15.0); WHITE BLOOD COUNT (AUTO) 9.9 K/uL (4.8-10.8)
[2017-02-08 07:09] LABS: CALCIUM 9.4 mg/dL (8.4-11.0); CREATININE 0.91 mg/dL (0.55-1.30); POTASSIUM 3.3 mmol/L (3.5-5.1)
[2017-02-08] MEDS: HYDROcodone/ACETAMIN 5-325 MG TAB (NORCO/ VICODIN) PO SCH ×3 (08:19→21:52)
[2017-02-08] MEDS: chlordiazePOXIDE HCL 25 MG CAPSULE PO SCH ×2 (08:19→21:52)
[2017-02-08] MEDS: THIAMINE HCL 100 MG TABLET PO SCH (08:19)
[2017-02-08] MEDS: FAMOTIDINE 20 MG TABLET PO SCH ×2 (08:19→21:52)
[2017-02-08] MEDS: ENOXAPARIN SODIUM 40 MG/0.4 ML SYRINGE SUBCUT SCH (08:20)
[2017-02-08 09:35] VITALS: BP_SYST 119
[2017-02-08 09:44] LABS: BASOPHILS % (MANUAL) 0 % (0-2); EOSINOPHILS % (MANUAL) 2 % (0-7); LYMPHOCYTES % (MANUAL) 29 % (20-46); MONOCYTES % (MANUAL) 14 % (0-11)
[2017-02-08] MEDS: KCL 20 mEq in D5/0.45NS 1000mL 1,000 ML IV SCH ×2 (09:52→21:55)
[2017-02-08 11:30] VITALS: BP_SYST 107
[2017-02-08] MEDS: traMADol HCL HCL 50 MG TABLET (ULTRAM) PO PRN (15:22)
[2017-02-08 15:27] VITALS: BP_SYST 101
[2017-02-08] MEDS ORDERED: POTASSIUM CHLORIDE 20 MEQ TAB.PRT.SR PO ONE (15:30)
[2017-02-08 20:00] VITALS: BP_SYST 108
[2017-02-09 01:17] VITALS: BP_SYST 100
[2017-02-09 03:29] VITALS: BP_SYST 106
[2017-02-09] MEDS: traMADol HCL HCL 50 MG TABLET (ULTRAM) PO PRN ×2 (06:59→13:06)
[2017-02-09 07:55] VITALS: BP_SYST 106
[2017-02-09] MEDS: KCL 20 mEq in D5/0.45NS 1000mL 1,000 ML IV SCH ×2 (08:23→18:12)
[2017-02-09] MEDS: ENOXAPARIN SODIUM 40 MG/0.4 ML SYRINGE SUBCUT SCH (08:24)
[2017-02-09] MEDS: FAMOTIDINE 20 MG TABLET PO SCH ×2 (09:10→20:47)
[2017-02-09] MEDS: chlordiazePOXIDE HCL 25 MG CAPSULE PO SCH ×2 (09:10→20:47)
[2017-02-09] MEDS: HYDROcodone/ACETAMIN 5-325 MG TAB (NORCO/ VICODIN) PO SCH ×3 (09:10→20:48)
[2017-02-09] MEDS: THIAMINE HCL 100 MG TABLET PO SCH (09:11)
[2017-02-09 11:42] VITALS: BP_SYST 113
[2017-02-09 15:19] VITALS: BP_SYST 121
[2017-02-09 20:00] VITALS: BP_SYST 136
[2017-02-09] MEDS ORDERED: MUPIROCIN NASAL 2% OINT. 1 GM NS SCH (21:00)
[2017-02-10] MEDS: traMADol HCL HCL 50 MG TABLET (ULTRAM) PO PRN (00:34)
[2017-02-10 00:40] VITALS: BP_SYST 144
[2017-02-10 04:31] VITALS: BP_SYST 101
[2017-02-10] MEDS: KCL 20 mEq in D5/0.45NS 1000mL 1,000 ML IV SCH ×2 (04:47→15:08)
[2017-02-10] MEDS ORDERED: MUPIROCIN 2% TOPICAL OINTMENT 22 GM TP SCH (06:45)
[2017-02-10 07:14] LABS: BASOPHILS # (AUTO) 0.1 K/uL (0.0-0.2); BASOPHILS % (AUTO) 0.8 % (0.0-2.0); EOSINOPHILS # (AUTO) 0.1 K/uL (0.0-0.4); EOSINOPHILS % (AUTO) 1.2 % (0.0-4.0); HEMATOCRIT 29.6 % (36-54); HEMOGLOBIN 9.9 g/dL (14.0-18.0); LYMPHOCYTES % (AUTO) 18.7 % (20.5-51.5); MEAN CORPUSCULAR HEMOGLOBIN 34 pg (27-31); MEAN CORPUSCULAR HGB CONC 34 % (32-36); MEAN CORPUSCULAR VOLUME 101 fL (79.0-98.0); MONOCYTES # (AUTO) 1.7 K/uL (0.0-1.0); MONOCYTES % (AUTO) 16.1 % (1.7-9.3); NEUTROPHILS # (AUTO) 6.7 K/uL (1.8-7.7); NEUTROPHILS % (AUTO) 63.2 % (40.0-70.0); PLATELET COUNT (AUTO) 259 K/uL (130-430); RED BLOOD CELL COUNT(AUTO) 2.93 MIL/uL (4.2-6.2); RED CELL DISTRIBUTION WIDTH 14.3 % (9.0-15.0); WHITE BLOOD COUNT (AUTO) 10.6 K/uL (4.8-10.8)
[2017-02-10 08:56] LABS: CREATININE 0.76 mg/dL (0.55-1.30); POTASSIUM 3.8 mmol/L (3.5-5.1)
[2017-02-10] MEDS: ENOXAPARIN SODIUM 40 MG/0.4 ML SYRINGE SUBCUT SCH (09:02)
[2017-02-10] MEDS: FAMOTIDINE 20 MG TABLET PO SCH ×2 (09:03→21:46)
[2017-02-10] MEDS: THIAMINE HCL 100 MG TABLET PO SCH (09:03)
[2017-02-10] MEDS: HYDROcodone/ACETAMIN 5-325 MG TAB (NORCO/ VICODIN) PO SCH ×3 (09:03→21:47)
[2017-02-10] MEDS: chlordiazePOXIDE HCL 25 MG CAPSULE PO SCH ×2 (09:03→21:45)
[2017-02-10 09:09] VITALS: BP_SYST 116
[2017-02-10 11:40] VITALS: BP_SYST 116
[2017-02-10 15:32] VITALS: BP_SYST 112
[2017-02-10 19:30] VITALS: BP_SYST 109
[2017-02-11 00:17] VITALS: BP_SYST 116
[2017-02-11] MEDS: KCL 20 mEq in D5/0.45NS 1000mL 1,000 ML IV SCH ×2 (04:04→17:56)
[2017-02-11] MEDS: traMADol HCL HCL 50 MG TABLET (ULTRAM) PO PRN (06:55)
[2017-02-11 08:01] LABS: CREATININE 0.71 mg/dL (0.55-1.30); POTASSIUM 3.9 mmol/L (3.5-5.1)
[2017-02-11 08:04] VITALS: BP_SYST 117
[2017-02-11 08:07] LABS: BASOPHILS # (AUTO) 0.1 K/uL (0.0-0.2); BASOPHILS % (AUTO) 0.8 % (0.0-2.0); EOSINOPHILS # (AUTO) 0.1 K/uL (0.0-0.4); EOSINOPHILS % (AUTO) 1.1 % (0.0-4.0); HEMATOCRIT 30.5 % (36-54); HEMOGLOBIN 9.9 g/dL (14.0-18.0); LYMPHOCYTES % (AUTO) 18.3 % (20.5-51.5); MEAN CORPUSCULAR HEMOGLOBIN 33 pg (27-31); MEAN CORPUSCULAR HGB CONC 33 % (32-36); MEAN CORPUSCULAR VOLUME 101 fL (79.0-98.0); MONOCYTES # (AUTO) 1.3 K/uL (0.0-1.0); MONOCYTES % (AUTO) 12.3 % (1.7-9.3); NEUTROPHILS # (AUTO) 7.3 K/uL (1.8-7.7); NEUTROPHILS % (AUTO) 67.5 % (40.0-70.0); PLATELET COUNT (AUTO) 266 K/uL (130-430); RED BLOOD CELL COUNT(AUTO) 3.03 MIL/uL (4.2-6.2); WHITE BLOOD COUNT (AUTO) 10.8 K/uL (4.8-10.8)
[2017-02-11] MEDS: HYDROcodone/ACETAMIN 5-325 MG TAB (NORCO/ VICODIN) PO SCH ×3 (09:29→21:28)
[2017-02-11] MEDS: ENOXAPARIN SODIUM 40 MG/0.4 ML SYRINGE SUBCUT SCH (09:29)
[2017-02-11] MEDS: FAMOTIDINE 20 MG TABLET PO SCH ×2 (09:29→21:28)
[2017-02-11] MEDS: chlordiazePOXIDE HCL 25 MG CAPSULE PO SCH ×2 (09:29→21:28)
[2017-02-11] MEDS: THIAMINE HCL 100 MG TABLET PO SCH (09:29)
[2017-02-11 11:26] VITALS: BP_SYST 106
[2017-02-11 15:43] VITALS: BP_SYST 98
[2017-02-11 20:05] VITALS: BP_SYST 109
[2017-02-12 01:01] VITALS: BP_SYST 97
[2017-02-12 04:00] VITALS: BP_SYST 104
[2017-02-12] MEDS: KCL 20 mEq in D5/0.45NS 1000mL 1,000 ML IV SCH (05:22)
[2017-02-12] MEDS: traMADol HCL HCL 50 MG TABLET (ULTRAM) PO PRN (05:58)
[2017-02-12] MEDS: THIAMINE HCL 100 MG TABLET PO SCH (08:40)
[2017-02-12] MEDS: FAMOTIDINE 20 MG TABLET PO SCH (08:40)
[2017-02-12] MEDS: chlordiazePOXIDE HCL 25 MG CAPSULE PO SCH (08:40)
[2017-02-12] MEDS: HYDROcodone/ACETAMIN 5-325 MG TAB (NORCO/ VICODIN) PO SCH (08:41)
[2017-02-12] MEDS: ENOXAPARIN SODIUM 40 MG/0.4 ML SYRINGE SUBCUT SCH (08:41)
[2017-02-12 08:42] VITALS: BP_SYST 111
[2017-02-12 10:06] VITALS: BP_SYST 110
== END 2017-02-12 10:50 | disposition home or self-care (01) | DRG 542 ==
LOC: SED 12:35 → STU 17:50 → SMU 02-10 22:17
PROVIDERS: ADMIT Family Medicine; ATTEND Family Medicine
DX: M48.54XA Collapsed vertebra, not elsewhere classified, thoracic region, initial encounter for fracture (principal); K85.90 Acute pancreatitis without necrosis or infection, unspecified; N10 Acute pyelonephritis; K70.30 Alcoholic cirrhosis of liver without ascites; I48.91 Unspecified atrial fibrillation; K86.1 Other chronic pancreatitis; G89.29 Other chronic pain; M54.5 Low back pain; F10.20 Alcohol dependence, uncomplicated
CPT/HCPCS: 36415; 71010; 72148; 76700-TC; 80048; 80053; 80307; 81000-TC; 82150-TC; 83605; 83690-TC; 85007; 85025; 85027; 85610-TC; 87040-TC; 87081; 93005; 96361; 96365; 96375; 99285; J0456; J0696; J1200; J1650; J2270; J2543; J7030; J7060

== ENCOUNTER 2017-03-03 11:45 | Inpatient (IN) | payer OTHER ==
[~2017-03-03] VITALS: Ht 167.6 cm; Wt 73.0 kg
[2017-03-03] MEDS ORDERED: NACL 0.9% 1,000 ML IV ONE (11:49)
[2017-03-03] MEDS ORDERED: LORazepam 2 MG/ML VIAL (FOR ER USE) IVP ONE (12:00)
[2017-03-03] MEDS ORDERED: ONDANSETRON HCL 4 MG/2 ML VIAL IVP ONE (12:00)
[2017-03-03] MEDS ORDERED: FOLIC ACID 1 MG, THIAMINE HCL 100 MG, MAGNESIUM SULFATE 1 GM, MVI 10 ML in NACL 0.9% 1,... IV ONE (12:00)
[2017-03-03 12:01] VITALS: BP_SYST 130
[2017-03-03 12:23] LABS: BASOPHILS # (AUTO) 0.1 K/uL (0.0-0.2); BASOPHILS % (AUTO) 0.7 % (0.0-2.0); EOSINOPHILS % (AUTO) 0.3 % (0.0-4.0); HEMOGLOBIN 15.4 g/dL (14.0-18.0); LYMPHOCYTES # (AUTO) 1.1 K/uL (1.0-5.5); LYMPHOCYTES % (AUTO) 9.2 % (20.5-51.5); MEAN CORPUSCULAR HEMOGLOBIN 33 pg (27-31); MEAN CORPUSCULAR HGB CONC 34 % (32-36); MEAN CORPUSCULAR VOLUME 98 fL (79.0-98.0); MONOCYTES # (AUTO) 0.7 K/uL (0.0-1.0); MONOCYTES % (AUTO) 5.9 % (1.7-9.3); NEUTROPHILS # (AUTO) 10.2 K/uL (1.8-7.7); NEUTROPHILS % (AUTO) 83.9 % (40.0-70.0); PLATELET COUNT (AUTO) 236 K/uL (130-430); RED BLOOD CELL COUNT(AUTO) 4.72 MIL/uL (4.2-6.2); RED CELL DISTRIBUTION WIDTH 13.5 % (9.0-15.0); WHITE BLOOD COUNT (AUTO) 12.1 K/uL (4.8-10.8)
[2017-03-03 12:26] LABS: ANION GAP 14 (5-15); CALCIUM 8.9 mg/dL (8.4-11.0); CHLORIDE 97 mmol/L (98-107); CREATININE 0.88 mg/dL (0.55-1.30); GLUCOSE 162 mg/dL (70-99); POTASSIUM 3.2 mmol/L (3.5-5.1); SODIUM SERUM 136 mmol/L (136-145)
[2017-03-03 12:29] LABS: GFR AFRICAN AMERICAN 115 mL/min (>90)
[2017-03-03 12:30] LABS: ALANINE AMINOTRANSFERASE 35 U/L (12-78); ASPARTATE AMINOTRANSFERASE 45 U/L (10-37); LIPASE 319 U/L (73-393); TOTAL BILIRUBIN 1.6 mg/dL (0.0-1.0)
[2017-03-03 12:31] LABS: UREA NITROGEN, BLOOD 5 mg/dL (8-21)
[2017-03-03 12:32] LABS: INR 1.1 (0.80-1.20); PROTHROMBIN TIME 11.6 SECS (9.5-12.5)
[2017-03-03 12:41] LABS: ALCOHOL, BLOOD < 3 mg/dL (<10)
[2017-03-03] MEDS ORDERED: KCL 10 mEq in 50 mL (PREMIX) 50 ML IV ONE (13:00)
[2017-03-03 13:49] LABS: BILIRUBIN,URINE NEGATIVE (NEGATIVE); BLOOD, URINE NEGATIVE (NEGATIVE); CLARITY/URINE CLEAR (CLEAR); COLOR,URINE YELLOW (YELLOW); GLUCOSE,URINE NEGATIVE (NEGATIVE); KETONES,URINE NEGATIVE (NEGATIVE); LEUKOCYTE ESTERASE ,URINE NEGATIVE (NEGATIVE); NITRITE, URINE NEGATIVE (NEGATIVE); PH,URINE 6.5 (5.0-8.0); PROTEIN URINE NEGATIVE (NEGATIVE); UROBILINOGEN,URINE 0.2 (0.2-1.0)
[2017-03-03 14:12] LABS: BARBITURATE, URINE NEGATIVE (NEG <=200); BENZODIAZEPINE, URINE POSITIVE (NEG <=150); CANNABINOID, URINE NEGATIVE (NEG <=50); COCAINE, URINE NEGATIVE (NEG <=150); METHAMPHETAMINES SCREEN,URINE NEGATIVE (NEG <=500); OPIATE, URINE NEGATIVE (NEG <=100); PHENCYCLIDINE SCREEN,URINE NEGATIVE (NEG <=25); UR TRICYCLIC ANTIDEPRESSANTS NEGATIVE (NEG <=300); URINE AMPHETAMINE NEGATIVE (NEG <=500); URINE METHADONE NEGATIVE (NEG <=200); URINE OXYCODONE SCREEN NEGATIVE (NEG <=100); URINE PROPOXYPHENE SCREEN NEGATIVE (NEG <=300)
[2017-03-03] MEDS ORDERED: FAMO20TA8 PO (14:14)
[2017-03-03] MEDS ORDERED: TRAM50TA92 PO (14:14)
[2017-03-03 16:20] VITALS: BP_SYST 136
[2017-03-03] MEDS ORDERED: traMADol HCL HCL 50 MG TABLET (ULTRAM) PO SCH (16:45)
[2017-03-03] MEDS: ONDANSETRON HCL 4 MG/2 ML VIAL IVP PRN (17:14)
[2017-03-03] MEDS: FOLIC ACID 1 MG, THIAMINE HCL 100 MG, MAGNESIUM SULFATE 1 GM, MVI 10 ML in NACL 0.9% 1,... IV SCH (19:06)
[2017-03-03 20:30] VITALS: BP_SYST 143
[2017-03-03] MEDS: ENOXAPARIN SODIUM 40 MG/0.4 ML SYRINGE SUBCUT SCH (20:40)
[2017-03-03] MEDS: FAMOTIDINE 20 MG TABLET PO SCH (20:40)
[2017-03-03] MEDS: chlordiazePOXIDE HCL 25 MG CAPSULE PO PRN (20:40)
[2017-03-04 00:17] VITALS: BP_SYST 137
[2017-03-04] MEDS: ONDANSETRON HCL 4 MG/2 ML VIAL IVP PRN ×2 (00:21→07:56)
[2017-03-04] MEDS: chlordiazePOXIDE HCL 25 MG CAPSULE PO PRN ×3 (05:17→21:34)
[2017-03-04] MEDS: FOLIC ACID 1 MG, THIAMINE HCL 100 MG, MAGNESIUM SULFATE 1 GM, MVI 10 ML in NACL 0.9% 1,... IV SCH ×2 (05:18→16:04)
[2017-03-04 06:04] VITALS: BP_SYST 128
[2017-03-04 08:00] VITALS: BP_SYST 127
[2017-03-04 08:06] LABS: BASOPHILS % (AUTO) 0.3 % (0.0-2.0); EOSINOPHILS # (AUTO) 0.2 K/uL (0.0-0.4); EOSINOPHILS % (AUTO) 1.9 % (0.0-4.0); HEMATOCRIT 41.4 % (36-54); HEMOGLOBIN 14.1 g/dL (14.0-18.0); LYMPHOCYTES # (AUTO) 1.6 K/uL (1.0-5.5); LYMPHOCYTES % (AUTO) 19.7 % (20.5-51.5); MEAN CORPUSCULAR HEMOGLOBIN 34 pg (27-31); MEAN CORPUSCULAR HGB CONC 34 % (32-36); MEAN CORPUSCULAR VOLUME 99 fL (79.0-98.0); MONOCYTES # (AUTO) 0.5 K/uL (0.0-1.0); MONOCYTES % (AUTO) 5.7 % (1.7-9.3); NEUTROPHILS # (AUTO) 5.8 K/uL (1.8-7.7); NEUTROPHILS % (AUTO) 72.4 % (40.0-70.0); PLATELET COUNT (AUTO) 138 K/uL (130-430); RED CELL DISTRIBUTION WIDTH 13.4 % (9.0-15.0); WHITE BLOOD COUNT (AUTO) 8.1 K/uL (4.8-10.8)
[2017-03-04 08:18] LABS: CALCIUM 7.9 mg/dL (8.4-11.0); CREATININE 0.72 mg/dL (0.55-1.30); POTASSIUM 3.4 mmol/L (3.5-5.1)
[2017-03-04] MEDS: FAMOTIDINE 20 MG TABLET PO SCH ×2 (09:02→21:34)
[2017-03-04 11:37] VITALS: BP_SYST 139
[2017-03-04 15:22] VITALS: BP_SYST 136
[2017-03-04] MEDS ORDERED: POTASSIUM CHLORIDE 20 MEQ/PKT PACKET PO ONE (18:30)
[2017-03-04 19:31] VITALS: BP_SYST 130
[2017-03-04] MEDS: ENOXAPARIN SODIUM 40 MG/0.4 ML SYRINGE SUBCUT SCH (21:34)
[2017-03-05] VITALS: BP_SYST 126
[2017-03-05] MEDS: FOLIC ACID 1 MG, THIAMINE HCL 100 MG, MAGNESIUM SULFATE 1 GM, MVI 10 ML in NACL 0.9% 1,... IV SCH ×2 (02:51→13:00)
[2017-03-05 04:00] VITALS: BP_SYST 128
[2017-03-05] MEDS: chlordiazePOXIDE HCL 25 MG CAPSULE PO PRN ×2 (06:20→12:17)
[2017-03-05 08:00] VITALS: BP_SYST 137
[2017-03-05] MEDS: FAMOTIDINE 20 MG TABLET PO SCH (09:11)
[2017-03-05 11:40] VITALS: BP_SYST 120
[2017-03-05 12:51] VITALS: BP_SYST 120
== END 2017-03-05 15:16 | disposition home or self-care (01) | DRG 897 ==
LOC: SED 11:45 → SIC 14:55 → STU 16:06
PROVIDERS: ADMIT Family Medicine; ATTEND Family Medicine
DX: F10.230 Alcohol dependence with withdrawal, uncomplicated (principal); I48.91 Unspecified atrial fibrillation; F17.200 Nicotine dependence, unspecified, uncomplicated
CPT/HCPCS: 36415; 80048; 80053; 80307; 81003; 83690-TC; 83735-TC; 85025; 85610-TC; 85730-TC; 87081; 93005; 96365; 96376; 99285; G0482; J1650; J2060; J2405; J3411; J3475; J3480; J3490; J7030

== ENCOUNTER 2017-04-16 14:51 | Emergency (ER) | payer OTHER ==
[~2017-04-16] VITALS: Ht 167.6 cm; Wt 72.6 kg
[~2017-04-16 14:51] MED LIST changes: +FAMO20TA8 PO; -HYDR-1189 PO
[2017-04-16 15:00] VITALS: BP_SYST 132
--- NOTE | 2017-04-16 15:00 | NUR ---
Patient brought self here for palpitations Hx. alcoholic, last alcohol intake was last night, geaneral body aches rates 8/10.
[2017-04-16 16:38] LABS: BASOPHILS # (AUTO) 0.1 K/uL (0.0-0.2); EOSINOPHILS # (AUTO) 0.4 K/uL (0.0-0.4); HEMATOCRIT 48.5 % (36-54); HEMOGLOBIN 16.2 g/dL (14.0-18.0); LYMPHOCYTES # (AUTO) 3.1 K/uL (1.0-5.5); LYMPHOCYTES % (AUTO) 24.9 % (20.5-51.5); MEAN CORPUSCULAR HEMOGLOBIN 32 pg (27-31); MEAN CORPUSCULAR HGB CONC 33 % (32-36); MEAN CORPUSCULAR VOLUME 95 fL (79.0-98.0); MONOCYTES # (AUTO) 0.5 K/uL (0.0-1.0); MONOCYTES % (AUTO) 4.3 % (1.7-9.3); NEUTROPHILS # (AUTO) 8.3 K/uL (1.8-7.7); NEUTROPHILS % (AUTO) 66.8 % (40.0-70.0); PLATELET COUNT (AUTO) 350 K/uL (130-430); RED BLOOD CELL COUNT(AUTO) 5.11 MIL/uL (4.2-6.2); RED CELL DISTRIBUTION WIDTH 14.6 % (9.0-15.0); WHITE BLOOD COUNT (AUTO) 12.4 K/uL (4.8-10.8)
--- NOTE | 2017-04-16 16:41 | NUR ---
Pt states that he doesn't want to wait anymore and will come back tonight maybe around midnight. Advised pt that a workup is already being done now while waiting and to not leave until evaluation by MD. Pt states that he is ok for now and will come back later if he needs to. Denies chest pain, denies dizziness. AAOx3. Ambulatory with steady gait. LWBS at this time.
[2017-04-16 16:46] LABS: CALCIUM 9.1 mg/dL (8.4-11.0); CREATININE 0.66 mg/dL (0.55-1.30); POTASSIUM 3.6 mmol/L (3.5-5.1)
[2017-04-16 16:50] LABS: INR 1.1 (0.80-1.20); PROTHROMBIN TIME 11.3 SECS (9.5-12.5)
[2017-04-16 16:51] LABS: ALBUMIN 3.9 g/dL (3.4-4.8); TOTAL BILIRUBIN 0.8 mg/dL (0.0-1.0)
== END 2017-04-16 16:41 | disposition left against medical advice (07) ==
LOC: SED 14:51
DX: R07.81 Pleurodynia (principal); Z53.21 Procedure and treatment not carried out due to patient leaving prior to being seen by health care provider
CPT/HCPCS: 36415; 80053; 84484; 85025; 85610; 85730; 93005; 99281; G0482

== ENCOUNTER 2017-05-29 17:11 | Emergency (ER) | payer OTHER ==
[~2017-05-29] VITALS: Ht 167.6 cm; Wt 70.3 kg
[2017-05-29 17:11] VITALS: BP_SYST 135
[~2017-05-29 17:11] MED LIST changes: +MAGN400T10 PO; +MULT PO; +POTA20TA83 PO; +THIA100T13 PO; +TRAM50TA92 PO
--- NOTE | 2017-05-29 17:11 | NUR ---
EKG DONE AND SHOWN TO DR. MCCLAIN.
--- NOTE | 2017-05-29 17:12 | NUR ---
Pt report received from LYUDMILA Crook. Pt c/o rapid heart rate and states that he is withdrawing from alcohol. Pt states he had his last drink yesterday morning. Mild resting tremors noted to A. Pt denies c/o C/P or SOB, HR 126 per athletic monitor.
--- NOTE | 2017-05-29 17:12 | NUR ---
Note toddarnav in EDM - 05/29/17 at 1905 by MITZY Pt report received from LYUDMILA Crook. Pt c/o rapid heart rate and states that he is withdrawing from alcohol. Pt states he had his last drink yesterday morning. Mild resting tremors noted to [facility]. Pt denies c/o C/P or SOB, A-flutter per tactical air control party with HR 126.
--- NOTE | 2017-05-29 17:12 | NUR ---
BROUGHT IN BY [facility] FROM [facility]. PLACED IN BED #2 AND TRIAGED. REPORT GIVEN TO SHANEKA
[2017-05-29] MEDS ORDERED: NACL 0.9% 1,000 ML IV ONE (18:00)
[2017-05-29] MEDS ORDERED: ONDANSETRON HCL 4 MG/2 ML VIAL IVP ONE (18:00)
[2017-05-29] MEDS ORDERED: LORazepam 2 MG/ML VIAL (FOR ER USE) IVP ONE (18:30)
--- NOTE | 2017-05-29 18:30 | NUR ---
Dr. Hilton at bedside to assess pt.
--- NOTE | 2017-05-29 19:10 | NUR ---
Pt report given to LYUDMILA Del Valle.
[2017-05-29 19:34] VITALS: BP_SYST 135
--- NOTE | 2017-05-29 19:34 | NUR ---
Patient given written and verbal discharge instructions and verbalizes understanding. ER MD discussed with patient the results and treatment provided. Patient in stable condition. ID arm band removed. IV catheter removed intact and dressing applied, no active bleeding. Rx of Ativan given. Patient educated on pain management and to follow up with PMD in 2-3 days. Pain Scale 0/10 Opportunity for questions provided and answered. Patient ambulated to waiting room with steady gait.
[2017-05-30] MEDS ORDERED: LORA-259 PO (04:10)
== END 2017-05-29 19:34 | disposition home or self-care (01) ==
LOC: SED 17:11
DX: F10.239 Alcohol dependence with withdrawal, unspecified (principal); I48.91 Unspecified atrial fibrillation; K74.60 Unspecified cirrhosis of liver; F17.200 Nicotine dependence, unspecified, uncomplicated; Y90.0 Blood alcohol level of less than 20 mg/100 ml
CPT/HCPCS: 96361; 96374; 96375; 99284; J2060; J2405; J7030

== ENCOUNTER 2017-05-29 22:32 | Inpatient (IN) | payer OTHER ==
[~2017-05-29] VITALS: Ht 167.6 cm; Wt 72.6 kg
[2017-05-29 22:55] VITALS: BP_SYST 137
--- NOTE | 2017-05-29 23:14 | NUR ---
Tanya bailey in ED - 05/30/17 at 0027 by [email or web address] Patient to ER bed 4 to monster for evaluation. Side rails up. Report given to Ivon COREAS.
--- NOTE | 2017-05-29 23:14 | NUR ---
Pt ambulatory to bed 4 for evaluation
[2017-05-29] MEDS ORDERED: FOLIC ACID 1 MG, THIAMINE HCL 100 MG, MAGNESIUM SULFATE 1 GM, MVI 10 ML in NACL 0.9% 1,... IV ONE (23:15)
[2017-05-29] MEDS ORDERED: LORazepam 2 MG/ML VIAL (FOR ER USE) IVP ONE (23:30)
[2017-05-29 23:39] LABS: BASOPHILS # (AUTO) 0.1 K/uL (0.0-0.2); BASOPHILS % (AUTO) 1.2 % (0.0-2.0); EOSINOPHILS % (AUTO) 0.1 % (0.0-4.0); HEMATOCRIT 41.8 % (36-54); LYMPHOCYTES # (AUTO) 0.8 K/uL (1.0-5.5); LYMPHOCYTES % (AUTO) 8.8 % (20.5-51.5); MEAN CORPUSCULAR HEMOGLOBIN 33 pg (27-31); MEAN CORPUSCULAR HGB CONC 34 % (32-36); MEAN CORPUSCULAR VOLUME 99 fL (79.0-98.0); MONOCYTES # (AUTO) 0.9 K/uL (0.0-1.0); MONOCYTES % (AUTO) 10.2 % (1.7-9.3); NEUTROPHILS # (AUTO) 7.2 K/uL (1.8-7.7); NEUTROPHILS % (AUTO) 79.7 % (40.0-70.0); PLATELET COUNT (AUTO) 117 K/uL (130-430); RED BLOOD CELL COUNT(AUTO) 4.21 MIL/uL (4.2-6.2); RED CELL DISTRIBUTION WIDTH 17.2 % (9.0-15.0)
--- NOTE | 2017-05-29 23:44 | NUR ---
ER at bedside examining patient.
[2017-05-29] MEDS ORDERED: MAGNESIUM SULFATE 1 GM/2 ML VIAL ONE (23:45)
[2017-05-29] MEDS ORDERED: MVI 10 ML VIAL IV ONE (23:45)
[2017-05-29] MEDS ORDERED: THIAMINE HCL 100 MG/ML VIAL ONE (23:45)
[2017-05-29] MEDS ORDERED: FOLIC ACID 5 MG/ML VIAL IV ONE (23:45)
--- NOTE | 2017-05-29 23:45 | NUR ---
Patient returns to ED for generalized weakness after being discharged earlier this evening. Patient reports that he is withdrawing from alcohol and continues to be "shaky." Denies any pain. No distress noted at this time. Patient placed on diagnostic cardiac sonographer. No other complaints/injuries per patient or as noted. Will continue to monitor.
[2017-05-30] LABS: ANION GAP 19 (5-15); CALCIUM 9.6 mg/dL (8.4-11.0); CHLORIDE 92 mmol/L (98-107); CREATININE 0.87 mg/dL (0.55-1.30); GLUCOSE 127 mg/dL (70-99); POTASSIUM 3.9 mmol/L (3.5-5.1); SODIUM SERUM 135 mmol/L (136-145); UREA NITROGEN, BLOOD 9 mg/dL (8-21)
[2017-05-30 00:05] LABS: ALANINE AMINOTRANSFERASE 60 U/L (12-78); ALBUMIN 4.3 g/dL (3.4-4.8); ASPARTATE AMINOTRANSFERASE 89 U/L (10-37); TOTAL BILIRUBIN 3.9 mg/dL (0.0-1.0)
[2017-05-30 00:11] LABS: ACETAMINOPHEN < 1 ug/mL (1-30); ALCOHOL, BLOOD < 3 mg/dL (<10); GFR AFRICAN AMERICAN 116 mL/min (>90)
--- NOTE | 2017-05-30 00:58 | NUR ---
Requesting urine sample from patient. Patient is refusing at this time. notified
--- NOTE | 2017-05-30 01:32 | NUR ---
Patient agrees to do in and out catheter after multiple requests for urine sample.
--- NOTE | 2017-05-30 02:18 | NUR ---
# 16 FR In and Out catheter with use of sterile technique. Immediate return of 80 ml orange urine noted. Urine sample collected and sent to lab. Pt tolerated procedure well
[2017-05-30] MEDS ORDERED: NACL 0.9% 1,000 ML IV ONE (03:00)
--- NOTE | 2017-05-30 03:28 | NUR ---
report given to LYUDMILA Jaimes.
[2017-05-30 03:33] LABS: BARBITURATE, URINE NEGATIVE (NEG <=200); BENZODIAZEPINE, URINE POSITIVE (NEG <=150); CANNABINOID, URINE NEGATIVE (NEG <=50); COCAINE, URINE NEGATIVE (NEG <=150); METHAMPHETAMINES SCREEN,URINE NEGATIVE (NEG <=500); OPIATE, URINE NEGATIVE (NEG <=100); PHENCYCLIDINE SCREEN,URINE NEGATIVE (NEG <=25); UR TRICYCLIC ANTIDEPRESSANTS NEGATIVE (NEG <=300); URINE AMPHETAMINE NEGATIVE (NEG <=500); URINE METHADONE NEGATIVE (NEG <=200); URINE OXYCODONE SCREEN NEGATIVE (NEG <=100); URINE PROPOXYPHENE SCREEN NEGATIVE (NEG <=300)
[2017-05-30] MEDS ORDERED: LORA-259 PO (04:10)
[2017-05-30] MEDS ORDERED: LORazepam 2 MG/ML VIAL IVP PRN (04:15)
--- NOTE | 2017-05-30 04:24 | NUR ---
ADMISSION NOTE Received patient from ER via gurney. Patient admitted with diagnosis of Acute Alcohol Withdrawal. Patient is awake, alert, oriented X 4. Patient oriented to hospital room, call light, toileting, pain management and safety-teach back done. Patient informed that LYUDMILA Hogan will be his nurse and that their room number is 108-C. Personal belongings checked and Belongings List documented. Call light within reach. Addendum: 05/30/17 at 0454 by Neris Irizarry RN Actual time patient came [id number].
--- NOTE | 2017-05-30 04:31 | NUR ---
Patient will be admitted to care of Dr. Ann. Admitted to telemtry unit. Went to room 135. Belongings list completed. Summary report printed. Report given at bedside.
--- NOTE | 2017-05-30 04:35 | NUR ---
PHYSICAL ASSESSMENT DONE WHILE IN ROOM 135. AWAKE ,ALERT ORIENTED X4. DENIES SOB NOR PAIN. FEELS GENERALIZED WEAKNESS. ROUTINE ADMISSION TEACHINGS. EDUCATED ON ACTIVITIES, NUTRITIONS ,ANXIETY ,PAIN CONTROL ,DISCUSSED PLAN OF CARE WITH UNDERSTANDING. SINUS TACHY ON ACTIVITIES,OTHERWISE SINUS RHYTHM. WILL MONITOR CLOSELY.
[2017-05-30 04:53] VITALS: BP_SYST 143
--- NOTE | 2017-05-30 05:00 | NUR ---
MOVED TO ROOM 108C. IVF INITIATED TO RIGHT AC AT 120ML/HR.WITH BLOOD RETURN.
--- NOTE | 2017-05-30 05:40 | NUR ---
ANXIETY: ATIVAN 2MG IV GIVEN.
[2017-05-30] MEDS: NACL 0.9% 1,000 ML IV SCH ×3 (05:44→22:44)
--- NOTE | 2017-05-30 06:38 | NUR ---
CLOSING: NO ACUTE CARDIOPULMONARY DISTRESS. ALL NEEDS ATTENDED. NO SIGNS OF WITHDRAWAL SYMPTOMS. NO SEIZURE. VOIDED 500 ML /CLEAR JOSEPH COLOR URINE.EDUCATED ON FALL AND ASPIRATION PRECAUTION.WILL ENDORSE TO AM RN FOR CONTINUITY OF CARE.
[2017-05-30] MEDS ORDERED: ACETAMINOPHEN 325 MG TABLET PO PRN (07:45)
[2017-05-30] MEDS ORDERED: DOCUSATE SODIUM 100 MG CAPSULE PO PRN (07:45)
[2017-05-30] MEDS ORDERED: POTASSIUM CHLORIDE 20 MEQ TAB.PRT.SR PO PRN (07:45)
[2017-05-30] MEDS ORDERED: MAGNESIUM SULFATE 50 ML IV PRN (07:45)
[2017-05-30] MEDS ORDERED: ONDANSETRON HCL 4 MG/2 ML VIAL IVP PRN (07:45)
[2017-05-30] MEDS ORDERED: MORPHINE 2 MG/ML INJ. SYRINGE IVP PRN ×2 (07:45)
[2017-05-30] MEDS ORDERED: MUPIROCIN 2% TOPICAL OINTMENT 22 GM NS PRN (07:45)
[2017-05-30 08:20] VITALS: BP_SYST 123
--- NOTE | 2017-05-30 08:20 | NUR ---
INITIAL NOTE RECEIVED REPORT AND PATIENT FROM RESIDENTIAL ENERGY AUDITOR NURSE. PATIENT REMAINS AWAKE, ALERT, VERBALLY RESPONSIVE. NO RESPIRATORY DISTRESS NOTED. DENIES ANY PAIN OR DISCOMFORT AT THIS TIME. SAFETY MEASURES MAINTAINED, BED LOCKED, ON LOWEST POSITION, BED ALARM ACTIVATED. CALL LIGHT ON HAND, WILL CONTINUE TO MONITOR.
[2017-05-30] MEDS: FOLIC ACID 1 MG, THIAMINE HCL 100 MG, MAGNESIUM SULFATE 1 GM, MVI 10 ML in NACL 0.9% 1,... IV SCH (09:00)
[2017-05-30] MEDS ORDERED: HEPARIN SODIUM,PORCINE 5000 UNITS/ML VIAL SUBCUT SCH (09:00)
--- NOTE | 2017-05-30 09:00 | NUR ---
MD ROUNDS DR. VELA IS DOING ROUNDS AND SAW THE PATIENT WITH NEW ORDERS GIVEN, PATIENT MADE AWARE.
[2017-05-30] MEDS: FAMOTIDINE 20 MG TABLET PO SCH ×2 (09:36→21:06)
--- NOTE | 2017-05-30 10:05 | NUR ---
ROUNDS STARTED PATIENT ON BANANA BAG ORDERED VIA IV LINE ON RIGHT AC WITH 20GAUGE. PATIENT REMAINS AWAKE, ALERT. NO SHORTNESS OF BREATH NOTED. CALL LIGHT ON HAND. WILL CONTINUE TO MONITOR.
--- NOTE | 2017-05-30 12:04 | NUR ---
ROUNDS PATIENT IN BED, EATING LUNCH. DENIES ANY PAIN OR DISCOMFORT AT THIS TIME. SAFETY PRECAUTIONS MAINTAINED, BED ON LOWEST POSITION, LOCKED, BED ALARM ACTIVATED. CALL LIGHT ON HAND. WILL CONTINUE TO MONITOR.
[2017-05-30 12:31] VITALS: BP_SYST 115
--- NOTE | 2017-05-30 14:07 | NUR ---
ROUNDS PATIENT RESTING IN BED, EASY TO AROUSE, VERBALLY RESPONSIVE. NO SHORTNESS OF BREATH NOTED. IV SITE ON RIGHT AC WITH 20GAUGE, MEDICATION INFUSING. BED LOCKED, ON LOWEST POSITION, BED ALARM ACTIVATED, CALL LIGHT ON HAND WILL CONTINUE TO MONITOR.
[2017-05-30 16:39] VITALS: BP_SYST 119
[2017-05-30] MEDS: chlordiazePOXIDE HCL 25 MG CAPSULE PO PRN (18:33)
--- NOTE | 2017-05-30 18:38 | NUR ---
CLOSING NOTE PATIENT JUST FINISHED ABDOMINAL ULTRASOUND, DIET RESUME. PATIENT CONNECTED BACK TO IV FLUIDS VIA PUMP, IV SITE INTACT, COVERED WITH TRANSPARENT DRESSING. PATIENT IS AWAKE, ALERT. DENIES ANY PAIN OR DISCOMFORT AT THIS TIME. VS STABLE. NO RESPIRATORY DISTRESS NOTED. SAFETY MEASURES MAINTAINED, BED ON LOWEST POSITION, LOCKED, BED ALARM ACTIVATED. CALL LIGHT WITHIN REACH, WILL ENDORSE TO LOCK UP WORKER.
--- NOTE | 2017-05-30 19:30 | NUR ---
INITIAL NOTE Received report from day shift nurse at the bedside. Pt awake, alert and oriented x4. VSS. Breathing unlabored and even. No signs of distress, no needs at this time. Fall and safety precautions in place. IV access right AC #20, infusing as ordered. Skin intact. SCDs in place. Bed in lowest position, brake on, call light within reach. Will continue to monitor.
[2017-05-30 20:00] VITALS: BP_SYST 129
--- NOTE | 2017-05-30 20:00 | NUR ---
ROUNDS Pt resting in bed awake, alert and oriented x4. Breathing unlabored and even. No signs of distress, no needs at this time. IV fluids infusing as ordered. Fall and safety precautions in place. Bed in lowest position, brake on, call light within reach. Will continue to monitor.
[2017-05-30] MEDS ORDERED: ZOLPIDEM TARTRATE 5 MG TABLET PO PRN (21:00)
--- NOTE | 2017-05-30 22:00 | NUR ---
ROUNDS Pt resting in bed awake, alert and oriented x4. Breathing unlabored and even. No signs of distress, no needs at this time. Fall and safety precautions in place. Bed in lowest position, brake on, call light within reach. Will continue to monitor.
[2017-05-31 00:25] VITALS: BP_SYST 121
--- NOTE | 2017-05-31 00:29 | NUR ---
ROUNDS Pt resting in bed awake, alert, and oriented x4. Breathing unlabored and even. No signs of distress, no needs at this time. Fall and safety precautions in place. Bed in lowest position, brake on, call light within reach. Helped pt to the bathroom, denies any SOB or pain. Pt stated he had "diarrhea". 2nd loose stool, he states. Pt denies any abd cramps or pain. Will continue to monitor.
--- NOTE | 2017-05-31 02:21 | NUR ---
ROUNDS Pt resting in bed with eyes closed, breathing unlabored and even. No signs of distress, no needs at this time. Fall and safety precautions in place. IV fluids infusing as ordered. Bed in lowest position, brake on, call light within reach. Will continue to monitor.
--- NOTE | 2017-05-31 04:18 | NUR ---
ROUNDS Pt resting in bed with eyes closed. Breathing unlabored and even. No signs of distress, no needs at this time. Fall and safety precautions in place. Bed in lowest position, brake on, call light within reach. Will continue to monitor.
[2017-05-31] MEDS: chlordiazePOXIDE HCL 25 MG CAPSULE PO PRN ×2 (05:53→15:06)
[2017-05-31] MEDS: NACL 0.9% 1,000 ML IV SCH (05:53)
--- NOTE | 2017-05-31 05:57 | NUR ---
PRN LIBRIUM ADMINISTERED Pt requested Librium. Administered PRN Librium as ordered. Also hung a new fluid bag, as ordered.
--- NOTE | 2017-05-31 06:00 | NUR ---
ROUNDS Pt resting in bed awake, alert, and oriented x4. Breathing unlabored and even. No signs of distress, no needs at this time. Fall and safety precautions in place. Bed in lowest position, brake on, call light within reach. Will continue to monitor.
--- NOTE | 2017-05-31 06:40 | NUR ---
CLOSING NOTE Pt resting in bed awake, alert, and oriented. Breathing unlabored and even. No signs of distress, no needs at this time. IV fluids infusing as ordered. Bed in lowest position, brake on, call light within reach. Fall and safety precautions in place. Will endorse cares to day shift nurse.
[2017-05-31 06:54] LABS: CALCIUM 8.9 mg/dL (8.4-11.0); CREATININE 0.78 mg/dL (0.55-1.30); POTASSIUM 3.1 mmol/L (3.5-5.1)
[2017-05-31 07:00] LABS: BASOPHILS % (AUTO) 0.5 % (0.0-2.0); EOSINOPHILS # (AUTO) 0.1 K/uL (0.0-0.4); EOSINOPHILS % (AUTO) 1.5 % (0.0-4.0); HEMATOCRIT 36.3 % (36-54); HEMOGLOBIN 12.4 g/dL (14.0-18.0); LYMPHOCYTES # (AUTO) 1.1 K/uL (1.0-5.5); LYMPHOCYTES % (AUTO) 22.2 % (20.5-51.5); MEAN CORPUSCULAR HEMOGLOBIN 34 pg (27-31); MEAN CORPUSCULAR HGB CONC 34 % (32-36); MEAN CORPUSCULAR VOLUME 100 fL (79.0-98.0); MONOCYTES # (AUTO) 0.5 K/uL (0.0-1.0); MONOCYTES % (AUTO) 10.5 % (1.7-9.3); NEUTROPHILS # (AUTO) 3.4 K/uL (1.8-7.7); NEUTROPHILS % (AUTO) 65.3 % (40.0-70.0); RED BLOOD CELL COUNT(AUTO) 3.65 MIL/uL (4.2-6.2); RED CELL DISTRIBUTION WIDTH 17.2 % (9.0-15.0); WHITE BLOOD COUNT (AUTO) 5.1 K/uL (4.8-10.8)
--- NOTE | 2017-05-31 07:48 | NUR ---
RECEIVED PT IN BED, PT IS AAOX4, . PT ON ROOM AIR, NO SOB, NO DISTRESS. IV FLUIDS INFUSING WELL. IV SIDE ON R.AC , NO LEAKING,BLEEDING OR INFILTRATION. BED IN LOWEST POSITION. CALL LIGHT IN EASY REACH, 2X SIDERAILS UP, PT APPEARS COMFORTABLE. WILL CONT TO MONITOR
[2017-05-31 08:21] VITALS: BP_SYST 134
[2017-05-31] MEDS: FOLIC ACID 1 MG, THIAMINE HCL 100 MG, MAGNESIUM SULFATE 1 GM, MVI 10 ML in NACL 0.9% 1,... IV SCH (08:39)
[2017-05-31] MEDS: FAMOTIDINE 20 MG TABLET PO SCH (08:39)
--- NOTE | 2017-05-31 09:59 | NUR ---
PT IN BED, AAOX4, DENIES PAIN. IV PB INFUSING WELL. BED IN LOWEST POSITION. CALL LIGHT IN EASY REACH, 2X SIDERAILS UP, PT APPEARS COMFORTABLE. WILL CONT TO MONITOR
--- NOTE | 2017-05-31 11:54 | NUR ---
SEEN SITTING IN BED. PT ON ROOM AIR, NO SOB, NO DISTRESS. NO C/O PAIN. PT STATED HE IS BORED WAITING FOR LAB DRAW. TOLD PT WE HAVE TO WAIT TO MAKE SURE THAT HIS LABS ARE OK BEFORE GOING HOME. BED IN LOWEST POSITION. CALL LIGHT IN EASY REACH, 2X SIDE RAILS UP, PT APPEARS COMFORTABLE. WILL CONT TO MONITOR
[2017-05-31 12:21] VITALS: BP_SYST 118
[2017-05-31 12:28] VITALS: BP_SYST 118
[2017-05-31 12:49] LABS: PLATELET COUNT (AUTO) 71 K/uL (130-430)
--- NOTE | 2017-05-31 13:58 | NUR ---
PT IN BED, RESTING COMFORTABLY, NO CHANGE IN CONDITION. PT STATED HE IS BORED WAITING FOR HIS LAB RESULTS. 2X SIDE RAILS UP, BED IN LOWEST POSITION. CALL LIGHT IN EASY REACH. WILL DC HOME WHEN LABS ARE WITHIN NORMAL LIMITS PER MD.
[2017-05-31 15:08] LABS: CALCIUM 8.9 mg/dL (8.4-11.0); CREATININE 0.76 mg/dL (0.55-1.30); POTASSIUM 3.7 mmol/L (3.5-5.1)
--- NOTE | 2017-05-31 15:33 | NUR ---
P.T. NOTES Pt WAS SEEN AWAKE & ALERT IN BED, SPEAKS GEORGIAN, ORIENTED x3, ON ROOM AIR, DECLINED W/ P.T. TX, EXPLAINED RISKS & BENEFITS OF THERAPY, Pt STILL DECLINED, STATES HE IS VERY UPSET & ANXIOUS, HIS ANXIETY LEVEL IS VERY HIGH", STATES HE WAS SUPPOSED TO BE DC'd AT 10 AM TODAY, BUT THEN HIS POTASSIUM WAS TOO LOW, THEN NOW IT IS TOO HIGH, THEN THEY DID ANOTHER BLOOD DRAW"; APOLOGETIC THAT HE WAS "GROUCHY" & APPRECIATIVE, CALL LIGHT, PHONE, TABLE IN REACH; STATES HE HAS BEEN WALKING TO THE BATHROOM; NURSE AWARE; EAGER TO GO HOME; REVIEWED HEP, FOLLOW UP Friday06/02/17 IF NOT D/C'd. TIFF
--- NOTE | 2017-05-31 15:45 | NUR ---
pt's K-LEVEL IS 3.7. WILL DC HOME PER MD.
--- NOTE | 2017-05-31 15:55 | NUR ---
PT TAKEN TO PARKING LOT. PT ABLE TO DRIVE. ALL BELONGINGS SENT WITH PT.
--- NOTE | 2017-05-31 16:00 | NUR ---
D/C Patient Patient given medication reconciliation form and D/C instructions. Exit Care provided. Patient verbalized understanding. MD discussed with patient the results and treatment provided. Ambulatory with steady gait for discharge to home. Patient in stable condition, ID band removed. IV catheter removed, intact and dressing applied, no active bleeding. Rx of given. Patient educated on pain management. Pre DC vitals wnl. All belongings sent with patient.
== END 2017-05-31 13:50 | disposition home or self-care (01) | DRG 895 ==
LOC: SED 22:32 → STU 05-30 04:11
PROVIDERS: ADMIT General Practice; ATTEND General Practice
PROC: HZ31ZZZ Individual Counseling for Substance Abuse Treatment, Behavioral (ICD-10-PCS; principal; 2017-05-31)
DX: F10.231 Alcohol dependence with withdrawal delirium (principal); D69.6 Thrombocytopenia, unspecified; G31.2 Degeneration of nervous system due to alcohol; K76.0 Fatty (change of) liver, not elsewhere classified; I48.91 Unspecified atrial fibrillation; K74.60 Unspecified cirrhosis of liver; E87.6 Hypokalemia; F17.210 Nicotine dependence, cigarettes, uncomplicated; Y90.0 Blood alcohol level of less than 20 mg/100 ml; Z79.899 Other long term (current) drug therapy; Z71.41 Alcohol abuse counseling and surveillance of alcoholic
CPT/HCPCS: 36415; 76700-TC; 80048; 80053; 80307; 83735-TC; 85025; 87081; 93005; 96365; 96366; 96375; 97116-GP; 99285; G0480; G0481; G0482; J2060; J3411; J3475; J3490; J7030

== ENCOUNTER 2017-06-26 03:01 | Emergency (ER) | payer OTHER ==
[~2017-06-26] VITALS: Ht 167.6 cm; Wt 72.6 kg
[~2017-06-26 03:01] MED LIST changes: +LORA-259 PO; -MAGN400T10 PO; -MULT PO; -POTA20TA83 PO; -THIA100T13 PO; -TRAM50TA92 PO
[2017-06-26 03:25] VITALS: BP_SYST 140
[2017-06-26] MEDS ORDERED: NACL 0.9% 1,000 ML IV ONE ×2 (03:45→05:00)
[2017-06-26] MEDS ORDERED: LORazepam 2 MG/ML VIAL (FOR ER USE) IVP ONE ×2 (03:45→05:00)
[2017-06-26 04:10] LABS: BASOPHILS % (AUTO) 3.5 % (0.0-2.0); CALCIUM 9.1 mg/dL (8.4-11.0); CREATININE 0.98 mg/dL (0.55-1.30); EOSINOPHILS % (AUTO) 0.4 % (0.0-4.0); HEMATOCRIT 48.3 % (36-54); HEMOGLOBIN 16.2 g/dL (14.0-18.0); LYMPHOCYTES % (AUTO) 9.8 % (20.5-51.5); MEAN CORPUSCULAR HEMOGLOBIN 34 pg (27-31); MEAN CORPUSCULAR HGB CONC 34 % (32-36); MEAN CORPUSCULAR VOLUME 100 fL (79.0-98.0); NEUTROPHILS # (AUTO) 7.3 K/uL (1.8-7.7); NEUTROPHILS % (AUTO) 77.3 % (40.0-70.0); PLATELET COUNT (AUTO) 142 K/uL (130-430); POTASSIUM 3.6 mmol/L (3.5-5.1); RED BLOOD CELL COUNT(AUTO) 4.81 MIL/uL (4.2-6.2); RED CELL DISTRIBUTION WIDTH 15.4 % (9.0-15.0); WHITE BLOOD COUNT (AUTO) 9.3 K/uL (4.8-10.8)
[2017-06-26 04:11] LABS: BASOPHILS # (AUTO) 0.3 K/uL (0.0-0.2); LYMPHOCYTES # (AUTO) 0.9 K/uL (1.0-5.5); MONOCYTES # (AUTO) 0.8 K/uL (0.0-1.0)
[2017-06-26 04:14] LABS: ALBUMIN 4.4 g/dL (3.4-4.8); TOTAL BILIRUBIN 2.4 mg/dL (0.0-1.0)
[2017-06-26] MEDS ORDERED: KETOROLAC TROMETHAMINE 30 MG VIAL IVP ONE (05:45)
[2017-06-26] MEDS ORDERED: D5/0.45 NS 1,000 ML IV ONE (05:45)
[2017-06-26 07:00] VITALS: BP_SYST 134
[2017-06-26] MEDS ORDERED: LIB25 PO (21:25)
== END 2017-06-26 07:00 | disposition home or self-care (01) ==
LOC: SED 03:01
DX: F10.231 Alcohol dependence with withdrawal delirium (principal); I48.91 Unspecified atrial fibrillation; Y90.6 Blood alcohol level of 120-199 mg/100 ml
CPT/HCPCS: 36415; 71045; 80053; 83880; 84484; 85025; 93005; 96361; 96374; 96375; 96376; 99285; G0482; J1885; J2060; J7030

== ENCOUNTER 2017-11-01 16:41 | Emergency (ER) | payer OTHER ==
[~2017-11-01] VITALS: Ht 177.8 cm; Wt 73.5 kg
[~2017-11-01 16:41] MED LIST changes: +HYDR-1189 PO; +MULT-1089 PO; +THIA100T13 PO
[2017-11-01 16:49] VITALS: BP_SYST 144
[2017-11-01 17:13] VITALS: BP_SYST 144
== END 2017-11-01 17:13 | disposition home or self-care (01) ==
LOC: SED 16:41
DX: F10.10 Alcohol abuse, uncomplicated (principal); F19.10 Other psychoactive substance abuse, uncomplicated; R03.0 Elevated blood-pressure reading, without diagnosis of hypertension; I48.91 Unspecified atrial fibrillation; K74.60 Unspecified cirrhosis of liver; Z79.899 Other long term (current) drug therapy; Y90.6 Blood alcohol level of 120-199 mg/100 ml
CPT/HCPCS: 99283

== ENCOUNTER 2017-12-03 17:15 | Inpatient (IN) | payer OTHER ==
[~2017-12-03] VITALS: Ht 167.6 cm; Wt 68.0 kg
[2017-12-03 17:15] VITALS: BP_SYST 118
--- NOTE | 2017-12-03 17:15 | NUR ---
BROUGHT IN BY [facility], PLACED IN BED #7 AND TRIAGED. PER MEDICS, PT WAS FOUND PRONE IN APPT IN KITCHEN, IN URINE AND FECES. PT STATES HE THINKS HE FELL ON 11/19/17. PT IS A/O X4, REPORT GIVEN TO DIANE
--- NOTE | 2017-12-03 17:20 | NUR ---
Patient brought in ALS after found prone in kitchen by well check for PD. Patient is AAO x 3 states today's is 11/19/17. Patient arrives malodorous smelling of urine and feces. Patient has open sore on Left cheek, bruising over left shoulder, open sores and bruising on left chest. Patient has baseball sized wound in sacral area that is black. Arrives with 18 guage IV to left AC placed by EMS. No signs of infiltration. Denies any pain at this time. No other complaints/injuries per patient or as noted.
--- NOTE | 2017-12-03 17:23 | NUR ---
ER at bedside examining patient.
[2017-12-03] MEDS ORDERED: VANCOMYCIN HCL 1,000 MG in D5W 250 ML IV ONE (17:30)
[2017-12-03] MEDS ORDERED: PIPERACILLIN/TAZO 3.38 GM in D5W 50 ML IV ONE (17:30)
[2017-12-03] MEDS ORDERED: NS 1000 ML IV.SOLN IV ONE (17:30)
--- NOTE | 2017-12-03 17:30 | NUR ---
MD documentation for Septic Shock.
--- NOTE | 2017-12-03 17:30 | NUR ---
Hygiene given to patient. Cleaned with bath wipes. Clothing removed and soaked in urine. Patient's linen changed and patient placed in new gown. Oral hygiene care given.
--- NOTE | 2017-12-03 17:47 | NUR ---
Blood cultures drawn, prior to administration of antibiotic.
[2017-12-03] MEDS ORDERED: PIPERACILLIN/TAZOBACTAM 3.375 GM/VIAL (ZOSYN) IV ONE (17:51)
[2017-12-03] MEDS ORDERED: VANCOMYCIN HCL 1000 MG/VIAL IV ONE (17:52)
--- NOTE | 2017-12-03 18:00 | NUR ---
# 16 FR Lee catheter with use of sterile technique. Immediate return of 50cc clear jeff urine noted. Bedside drainage bag placed below level of bladder. Urine sample collected and sent to lab. Pt tolerated procedure well Patient unable to toilet self.
--- NOTE | 2017-12-03 18:10 | NUR ---
Patient states he is full code
--- NOTE | 2017-12-03 18:13 | NUR ---
Medication reconciliation completed with information provided by Patient. Any prior medication reconciliation on file was reviewed and corrected.
[2017-12-03 18:22] LABS: INR 1.2 (0.80-1.20); PROTHROMBIN TIME 12.6 SECS (9.5-12.5)
[2017-12-03 18:23] LABS: HEMATOCRIT 45.8 % (36-54); HEMOGLOBIN 15.3 g/dL (14.0-18.0); MEAN CORPUSCULAR HEMOGLOBIN 35 pg (27-31); MEAN CORPUSCULAR HGB CONC 33 % (32-36); MEAN CORPUSCULAR VOLUME 103 fL (79.0-98.0); PLATELET COUNT (AUTO) 279 K/uL (130-430); RED BLOOD CELL COUNT(AUTO) 4.44 MIL/uL (4.2-6.2); RED CELL DISTRIBUTION WIDTH 15.8 % (9.0-15.0); WHITE BLOOD COUNT (AUTO) 18.8 K/uL (4.8-10.8)
[2017-12-03 18:29] LABS: ALANINE AMINOTRANSFERASE 48 U/L (12-78); ANION GAP 22 (5-15); ASPARTATE AMINOTRANSFERASE 61 U/L (10-37); CALCIUM 9.2 mg/dL (8.4-11.0); CREATININE 5.86 mg/dL (0.55-1.30); GLUCOSE 167 mg/dL (70-99); POTASSIUM 3.8 mmol/L (3.5-5.1); TOTAL BILIRUBIN 4.3 mg/dL (0.0-1.0)
--- NOTE | 2017-12-03 18:43 | NUR ---
EKG performed at BS by SABINO Car. Physician given copy of EKG for review.
[2017-12-03 18:45] LABS: GFR AFRICAN AMERICAN 13 mL/min (>90)
[2017-12-03 18:46] LABS: ALCOHOL, BLOOD < 3 mg/dL (<10)
[2017-12-03 18:49] LABS: ACETAMINOPHEN < 1 ug/mL (1-30)
[2017-12-03 18:58] LABS: SODIUM SERUM 170 mmol/L (136-145)
[2017-12-03 18:59] LABS: CHLORIDE 124 mmol/L (98-107)
[2017-12-03 19:00] LABS: UREA NITROGEN, BLOOD 225 mg/dL (8-21)
--- NOTE | 2017-12-03 19:12 | NUR ---
Patient off unit to CT scan
--- NOTE | 2017-12-03 19:32 | NUR ---
Patient returned for CT scan. Placed back on monitor. VSS. Will continue to monitor.
[2017-12-03 19:41] LABS: BILIRUBIN,URINE 2+ (NEGATIVE); BLOOD, URINE NEGATIVE (NEGATIVE); CLARITY/URINE HAZY (CLEAR); COLOR,URINE AMBER (YELLOW); GLUCOSE,URINE TRACE (NEGATIVE); KETONES,URINE NEGATIVE (NEGATIVE); LEUKOCYTE ESTERASE ,URINE NEGATIVE (NEGATIVE); NITRITE, URINE NEGATIVE (NEGATIVE); PROTEIN URINE TRACE (NEGATIVE)
[2017-12-03] MEDS ORDERED: FOLI-43 PO (19:48)
[2017-12-03] MEDS ORDERED: ATOR-1 PO (19:48)
[2017-12-03] MEDS ORDERED: FAMO40TA7 PO (19:48)
[2017-12-03] MEDS ORDERED: ASPI-1153 PO (19:48)
[2017-12-03 19:56] LABS: BAND % (MANUAL) 32 % (0-6); BASOPHILS % (MANUAL) 0 % (0-2); EOSINOPHILS % (MANUAL) 0 % (0-7); LYMPHOCYTES % (MANUAL) 9 % (20-46); MONOCYTES % (MANUAL) 10 % (0-11)
[2017-12-03 20:09] LABS: CKMB RELATIVE INDEX 0.6 (0.0-2.9)
[2017-12-03 20:21] LABS: BACTERIA,URINE FEW /HPF (None Seen); FINE GRANULAR CASTS,URINE 0-10 /LPF (None Seen); HYALINE CASTS, URINE 0-10 /LPF (None Seen); MUCUS,URINE None Seen /LPF (None Seen); RBC,URINE 0-3 /HPF (0-3); URINE AMORPHOUS PHOSPHATES 2+ /HPF (None Seen); WBC,URINE 0-3 /HPF (0-3)
[2017-12-03 20:35] LABS: BARBITURATE, URINE NEGATIVE (NEG <=200); BENZODIAZEPINE, URINE POSITIVE (NEG <=150); CANNABINOID, URINE NEGATIVE (NEG <=50); COCAINE, URINE NEGATIVE (NEG <=150); METHAMPHETAMINES SCREEN,URINE NEGATIVE (NEG <=500); OPIATE, URINE NEGATIVE (NEG <=100); PHENCYCLIDINE SCREEN,URINE NEGATIVE (NEG <=25); UR TRICYCLIC ANTIDEPRESSANTS NEGATIVE (NEG <=300); URINE AMPHETAMINE NEGATIVE (NEG <=500); URINE METHADONE NEGATIVE (NEG <=200); URINE OXYCODONE SCREEN NEGATIVE (NEG <=100); URINE PROPOXYPHENE SCREEN NEGATIVE (NEG <=300)
--- NOTE | 2017-12-03 20:51 | NUR ---
Admitted to ICU unit. Will go to room ICU 8. Belongings list completed. Summary report printed. Report will be given at bedside.
--- NOTE | 2017-12-03 21:00 | NUR ---
Note undone in ED - 12/03/17 at 2140 by [email or web address] Transfer to ICU via ACLS protocol. Licensed nurse present. IV present no signs or symptoms of infiltration.Patient will be admitted to care of DR. ALCANTAR. Admitted to ICU unit. Will go to room ICU 8. Belongings list completed. Summary report printed. Report will be given at bedside.
--- NOTE | 2017-12-03 21:00 | NUR ---
Transfer to ICU via ACLS protocol. Licensed nurse present. IV present no signs or symptoms of infiltration.
--- NOTE | 2017-12-03 21:10 | NUR ---
ICU ADMIT Received pt from ER via justicergeraldine. Pt is A&OX3. Pt on RA, SPO2 above 96%. SR noted on monitor. IV18g to LAC and RAC, no signs of infiltration noted. Wound noted to sacrum, left cheek and chest. Ecchymosis noted to left shoulder, sling in place. Lee in place, draining to gravity. Belongings at bedside. Safety precautions in place, call light within reach. Will continue to monitor.
[2017-12-03 21:20] VITALS: BP_SYST 112
[2017-12-03] MEDS: D5W 1,000 ML IV SCH (21:36)
[2017-12-03 22:00] VITALS: BP_SYST 101
--- NOTE | 2017-12-03 22:20 | NUR ---
CONSULT FOR CALLED, SPOKE WITH SOCORRO AT EXCHANGE.
[2017-12-03 23:00] VITALS: BP_SYST 108
[2017-12-04] VITALS (24 sets, daily range): BP systolic 91–153
--- NOTE | 2017-12-04 00:20 | NUR ---
Spoke to Dr. Garrison for consult, orders received.
--- NOTE | 2017-12-04 00:30 | NUR ---
Dr. Vazquez here evaluating patient.
[2017-12-04] MEDS ORDERED: NOREPINEPHRINE BITARTRATE 4 MG in NS 246 ML IV PRN (00:45)
[2017-12-04] MEDS: THIAMINE HCL 100 MG TABLET PO SCH ×2 (01:14→10:16)
[2017-12-04] MEDS ORDERED: THIAMINE HCL 100 MG TABLET ONE (01:18)
--- NOTE | 2017-12-04 01:20 | NUR ---
CONSULT FOR AND CALLED, SPOKE WITH IFTIKHAR AT EXCHANGE.
[2017-12-04] MEDS: D5W 1,000 ML IV SCH ×4 (04:37→20:11)
[2017-12-04] MEDS ORDERED: PIPERACILLIN/TAZO 2.25G/DEX-IS 50 ML IV SCH (06:00)
[2017-12-04 06:02] LABS: CREATININE 4.81 mg/dL (0.55-1.30); POTASSIUM 3.4 mmol/L (3.5-5.1)
[2017-12-04 06:05] LABS: ALBUMIN 2.2 g/dL (3.4-4.8); TOTAL BILIRUBIN 3.1 mg/dL (0.0-1.0)
[2017-12-04] MEDS ORDERED: PIPERACILLIN/TAZOBACTAM 2.25 GM VIAL IV ONE (06:21)
[2017-12-04 06:27] LABS: EOSINOPHILS # (AUTO) 0.1 K/uL (0.0-0.4); EOSINOPHILS % (AUTO) 0.8 % (0.0-4.0)
[2017-12-04 06:33] LABS: BASOPHILS # (AUTO) 0.1 K/uL (0.0-0.2); BASOPHILS % (AUTO) 0.8 % (0.0-2.0); HEMATOCRIT 41.7 % (36-54); HEMOGLOBIN 14.1 g/dL (14.0-18.0); LYMPHOCYTES # (AUTO) 1.2 K/uL (1.0-5.5); LYMPHOCYTES % (AUTO) 8.1 % (20.5-51.5); MEAN CORPUSCULAR HEMOGLOBIN 36 pg (27-31); MEAN CORPUSCULAR HGB CONC 34 % (32-36); MEAN CORPUSCULAR VOLUME 106 fL (79.0-98.0); MONOCYTES # (AUTO) 1.7 K/uL (0.0-1.0); MONOCYTES % (AUTO) 11.8 % (1.7-9.3); NEUTROPHILS # (AUTO) 11.5 K/uL (1.8-7.7); NEUTROPHILS % (AUTO) 78.5 % (40.0-70.0); PLATELET COUNT (AUTO) 158 K/uL (130-430); RED BLOOD CELL COUNT(AUTO) 3.93 MIL/uL (4.2-6.2); RED CELL DISTRIBUTION WIDTH 16.5 % (9.0-15.0); WHITE BLOOD COUNT (AUTO) 14.6 K/uL (4.8-10.8)
--- NOTE | 2017-12-04 07:10 | NUR ---
ENDORSEMENT Pt care endorsed to LYUDMILA Wilkes at bedside using nursing SBAR.
--- NOTE | 2017-12-04 08:00 | NUR ---
RN OPENING ASSESSMENT PT SITTING UP IN BED, AA&OX3 WITH SIGNS OF CONFUSION, ESPECIALLY DURING PROLONGED CONVERSATIONS IN WHICH HE WILL LOSE TRACK OF THE CONVERSATION AND BEGIN TALKING ABOUT UNRELATED TOPICS. VS STABLE ON ROOM AIR, NO COMPLAINT OF PAIN, , BREATHING CLEAR AND UNLABORED. BLANCO CATH PRESENT AND DRAINING TO GRAVITY WNL. PT EDUCATED ON UNIT SAFETY AND DEMONSTRATED ABILITY TO USE OF CALL LIGHT. FALL PRECAUTIONS IN PLACE.
[2017-12-04] MEDS ORDERED: D5W 250 ML IV ONE (08:15)
--- NOTE | 2017-12-04 09:01 | NUR ---
Nutrition Update Foreign Scale 12 noted. Pt admitted for severe dehydration, ARF, fracture. Diet: mechanical soft BMI: 24.2 kg/m2 RD to follow per nutrition care standards.
--- NOTE | 2017-12-04 09:30 | NUR ---
DR. VIDAL AT BEDSIDE NEW ORDERS RECEIVED
[2017-12-04 09:32] LABS: CKMB RELATIVE INDEX 0.6 (0.0-2.9)
--- NOTE | 2017-12-04 11:30 | NUR ---
DR. HOLLIS AT BEDSIDE NEW ANTIBIOTICS ORDERED
[2017-12-04] MEDS: FLUCONAZOLE 100 mg/ NS 50 ML IV SCH (12:49)
--- NOTE | 2017-12-04 12:51 | NUR ---
Dietitian Recommendations * Recommend mechanical soft diet, Ensure Enlive TID, Fuad BID (oral supplement provides an additional 1050 kcal/day and 60 gm protein/day) LP, RD Please refer to Nutrition Assessment for details.
--- NOTE | 2017-12-04 12:52 | NUR ---
Electronic Equipment Repairer Note Received Social Service referral on patient. SLOTTER OPERATOR HELPER met with patient for ICU and Discharge Plan Assessment. SLOTTER OPERATOR HELPER met with patient at bedside. Patient is confused. He is able to answer some questions coherently, but much of his conversation does not make sense. Patient stated he had recently been sober, but he is unsure if he had been drinking when he fell. He stated he was in a new apartment, but did not know the address. He stated his mother and sister are the best people to contact but stated he did not want to disturb his mother as she is aged and he did not know his sister's phone number at this time. SLOTTER OPERATOR HELPER discussed with patient that he would most likely need SNF placement upon discharge. Patient stated he had been in a SNF at some time. Chart review shows patient was discharged to [facility] on 01/09/18. Electronic Equipment Repairer/Case Management/Discharge Planning will remain available. Addendum: 12/04/17 at 1344 by Yancy Cervantes LCSW SARATH left a voicemail message at the number listed for patient's mother, Pilar Morales [phone], asking for a return call.
--- NOTE | 2017-12-04 13:45 | NUR ---
CHG BATH PROVIDED
--- NOTE | 2017-12-04 14:00 | NUR ---
WOUND CARE PERFORMED WITH WOUND CARE NURSE [id number].
[2017-12-04] MEDS: CEFEPIME 1 GM in D5W 50 ML IV SCH (14:14)
--- NOTE | 2017-12-04 14:45 | NUR ---
DR. ALCANTAR AT BEDSIDE NEW ORDERS RECEIVED
--- NOTE | 2017-12-04 15:12 | NUR ---
WOUND EVALUATION: Late note for 1511 secondary to patient care. Wound Consult received from Dr. Vazquez. Thank you, Dr. Vazquez, for the consult. Patient received in a Keena Bed with an Isoflex HERNÁN mattress, low air loss therapy initiated, awake, alert, and oriented. Patient is unable to turn independently. Foreign Score is a 12. Past Medical History: Long history of alcohol dependency, lives at home by himself, was found lying down in the house by the police for almost 2 weeks. The patient apparently fell and sustained fracture to the left shoulder and stayed lying down until they found him on the floor. The patient transferred to the Emergency Room at [facility]. On arrival, he was evaluated by the ER physician. Recent labs: WBC 14.6, RBC 3.93, hemoglobin 14.1, hematocrit 41.7, sodium 165, potassium 3.4, chloride 129, BUN 225, creatinine 4.81, albumin 2.2, PT 12.6, PTT 25.0. Intrinsic factors that delay wound healing: Alcohol dependency. Extrinsic factors that delay wound healing: Decreased mobility. Microbiology: Blood culture results 2 in progress. Urine culture results in progress, MRSA screen results in progress. Patient is status post fall at residence. Skin assessment: Wound Assessment: 1. Left chest: Wound, present on admission. Sustained from fall at residence. Wound bed has 60% dark tissue, 40% dark red tissue. No odor, no drainage. Periwound intact. Wound measures 1.5 cm x 1.7 cm. Periwound and surrounding tissue has a large area of erythema with ecchymosis, measuring 8.5 cm x 17.0 cm. 2. Right chest: Wound, present on admission. Sustained from fall at residence.Sustained from fall at residence. Wound bed has 80% dark tissue, 20% dark red tissue. No odor, no drainage. Periwound intact. Wound measures 0.6 cm x 2.0 cm. Periwound and surrounding tissue has a large area of erythema with ecchymosis, measuring 3.5 cm x 5.0 cm Recommend: Cleanse wounds with normal saline. Pat dry. Apply moisture barrier cream to involved areas. Apply Venelex ointment onto wound beds. Cover with foam dressing, then transparent dressing. Perform site care daily, as needed and as needed for dressing soiling or dislodgment. 3. Sacral area: Unstageable pressure ulcer, present on admission. Wound bed has 40% light yellow slough, 35% brown slough, 20% yellow slough, 5% pink tissue. No odor, no drainage. Wound measures 11.0 cm x 11.0 cm. Recommend: Cleanse wounds with normal saline. Pat dry. Apply moisture barrier cream to involved areas. Apply Venelex ointment onto wound beds. Cover with foam dressing, then transparent dressing. Perform site care daily, as needed and as needed for dressing soiling or dislodgment. 4. Left cheek: Wound, present on admission. Sustained from fall at residence. Wound bed has 90% black slough eschar, 10% yellow tissue. No odor, no drainage. Periwound intact. Wound measures 1.5 cm x 4.2 cm. Recommend: Cleanse wounds with normal saline. Pat dry. Apply moisture barrier cream to involved areas. Apply Venelex ointment onto wound beds. Cover with foam dressing, then transparent dressing. Perform site care daily, as needed and as needed for dressing soiling or dislodgment. 5. Left shoulder: Ecchymosis, present on admission. Recommend: Cleanse wounds with normal saline. Pat dry. Apply moisture barrier cream to involved areas. Apply Venelex ointment onto wound beds. Cover with foam dressing, then transparent dressing. Perform site care daily, as needed and as needed for dressing soiling or dislodgment. Contact wound care nurse if site opens or drains or worsens. Recommend: No dressings needed. Continue to monitor site for worsening condition. Recommend: Dressings needed. Continue to monitor site for worsening condition. Contact wound care is nurse if site opens, drains, or worsens. Also recommend: Reposition patient side to side only every 2 hours with pillow support, and off-load pressure areas with pillows for pressure re-distribution. Offload, elevate and float bilateral heels with one pillow lengthwise under each extremity at all times. Perform skin care and monitor skin integrity Q shift. Use moisture barrier cream on buttocks and other moisture susceptible areas QID and as needed for soiling. Maintain patient on a low air-loss mattress. Addendum: 12/04/17 at 1829 by Wesly Brewer RN Error. Please see newer note written at 1512.
[2017-12-04 17:29] LABS: CKMB RELATIVE INDEX 0.5 (0.0-2.9); CREATINE KINASE MB 6.2 ng/mL (0-3.6)
--- NOTE | 2017-12-04 19:00 | NUR ---
ENDORSEMENT REPORT ENDORSED TO LYUDMILA DAVIS AT BEDSIDE
--- NOTE | 2017-12-04 19:30 | NUR ---
OPENING NOTE PT IN BED, AWAKE, ALERT, ORIENTED TO NAME, PLACE, TIME AND PARTIAL TO SITUATION. NO SIGNS OF DISTRESS, COMPLAINS OF PAIN IN LEFT ARM WHEN MOVED. SINUS RHYTHM ON THE RIP SAWYER. CARE WILL CONTINUE THROUGH SHIFT.
[2017-12-04] MEDS: BALSAM PERU/CASTOR OIL 60 GM OINT...G. TP SCH (20:16)
[2017-12-04] MEDS ORDERED: CEFEPIME 1 GM in D5W 50 ML IV SCH (21:00)
[2017-12-05] VITALS (23 sets, daily range): BP systolic 94–142
[2017-12-05] MEDS: D5W 1,000 ML IV SCH ×5 (01:08→20:13)
[2017-12-05 02:02] LABS: CKMB RELATIVE INDEX 0.5 (0.0-2.9); CREATINE KINASE MB 5.2 ng/mL (0-3.6)
--- NOTE | 2017-12-05 03:10 | NUR ---
OBSERVATION OBSERVED PATIENT WITH BOWEL MOVEMENT, FECES IN HAND AND IN MOUTH. PT IS CLEANED AND ORAL CARE PERFORMED INCLUDING BRUSHING OF TEETH.
--- NOTE | 2017-12-05 03:30 | NUR ---
RHYTHM OBSERVATION OBSERVED MULTIPLE OCCURRENCES OF PAUSES IN HEART RHYTHM LASTING APPROXIMATELY 5 SECONDS IN DURATION. PT IS AWAKE AT THE TIME, NO OBSERVATION OF CHANGE IN ACTIVITY. PT IS ASYMPTOMATIC AND UNAWARE OF OCCURRENCE. WILL CONTINUE TO OBSERVE.
[2017-12-05 06:24] LABS: RED BLOOD CELL COUNT(AUTO) 3.34 MIL/uL (4.2-6.2)
[2017-12-05 06:25] LABS: ANION GAP 13 (5-15); CALCIUM 8.1 mg/dL (8.4-11.0); CHLORIDE 118 mmol/L (98-107); CREATININE 3.13 mg/dL (0.55-1.30); GLUCOSE 129 mg/dL (70-99); SODIUM SERUM 156 mmol/L (136-145)
[2017-12-05 06:41] LABS: GFR AFRICAN AMERICAN 26 mL/min (>90)
[2017-12-05 06:42] LABS: POTASSIUM 2.7 mmol/L (3.5-5.1)
[2017-12-05 06:43] LABS: UREA NITROGEN, BLOOD 143 mg/dL (8-21)
[2017-12-05 06:44] LABS: ALANINE AMINOTRANSFERASE 43 U/L (12-78); ALBUMIN 2.3 g/dL (3.4-4.8); ASPARTATE AMINOTRANSFERASE 73 U/L (10-37); HEMATOCRIT 34.2 % (36-54); HEMOGLOBIN 11.5 g/dL (14.0-18.0); LIPASE 529 U/L (73-393); MEAN CORPUSCULAR HEMOGLOBIN 35 pg (27-31); MEAN CORPUSCULAR HGB CONC 34 % (32-36); MEAN CORPUSCULAR VOLUME 102 fL (79.0-98.0); PLATELET COUNT (AUTO) 119 K/uL (130-430); RED CELL DISTRIBUTION WIDTH 15.6 % (9.0-15.0); THYROID STIMULATING HORMONE 1.76 uIu/mL (0.36-3.74); TOTAL BILIRUBIN 2.6 mg/dL (0.0-1.0); WHITE BLOOD COUNT (AUTO) 12.6 K/uL (4.8-10.8)
[2017-12-05] MEDS ORDERED: KCL 40 mEq in 100 mL (PREMIX) 100 ML IV ONE (07:00)
--- NOTE | 2017-12-05 07:25 | NUR ---
AM NOTES Pt in bed awake, still confused, but able to make needs know. denies any chest pain or discomfort at this time. has left arm sling in place. On room air. denies any shortness on breath. O2 sat at 99%. afebrile. has multiple bruises and scabs from previous fall. repositioned for comfort. IVF infusing well. monahan catheter draining yellow urine. on air matress. safety precaution observed. will monitor.
--- NOTE | 2017-12-05 07:30 | NUR ---
CLOSING NOTE PT IN BED, AWAKE, ALERT. NO SIGNS OF DISTRESS, NO APPARENT PAIN OR DISCOMFORT. CARDIAC CHANGES NOTED OVERNIGHT. ASYMPTOMATIC. OTHERWISE NO CHANGES IN GENERAL CONDITION OBSERVED.
[2017-12-05] MEDS: POTASSIUM CHLORIDE 40 MEQ in NS 250 ML IV SCH ×2 (07:37→12:05)
--- NOTE | 2017-12-05 07:50 | NUR ---
MD ROUNDS Dr. kimbrough here and made aware of pauses from last night.
--- NOTE | 2017-12-05 08:04 | NUR ---
notes Trying to feed patient for breakfast but patient refuses to eat. Pt stated that he has difficulty swallowing. Give patient ensure to drink and when he swallow his heart rate went down to high 30's. Dr. kimbrough here and made aware.
--- NOTE | 2017-12-05 09:27 | NUR ---
notes- Pt came back from ct scan. no distress noted.
[2017-12-05] MEDS: THIAMINE HCL 100 MG TABLET PO SCH (09:28)
[2017-12-05] MEDS: THEOPHYLLINE ANHYDROUS 200 MG CAP.ER.24H PO SCH ×2 (09:29→20:12)
--- NOTE | 2017-12-05 09:34 | NUR ---
Notes Pt able to swallow the theopyline and thiamine capsule without much difficulty. Pt does want to sleep at this time. Wants to do wound dressing change later.
--- NOTE | 2017-12-05 09:46 | NUR ---
called for follow up consult at Dr. Moon's office.
[2017-12-05 10:10] LABS: ATYPICAL LYMPHOCYTES % 0 % (0-0); BAND % (MANUAL) 7 % (0-6); LYMPHOCYTES % (MANUAL) 16 % (20-46); MONOCYTES % (MANUAL) 5 % (0-11)
[2017-12-05 10:11] LABS: BASOPHILS % (MANUAL) 0 % (0-2); EOSINOPHILS % (MANUAL) 4 % (0-7)
--- NOTE | 2017-12-05 11:00 | NUR ---
Notes- Resting in bed, repotioned for comfort. no acute distress noted. will continue to monitor.
[2017-12-05] MEDS: BALSAM PERU/CASTOR OIL 60 GM OINT...G. TP SCH (12:06)
[2017-12-05] MEDS: FLUCONAZOLE 100 mg/ NS 50 ML IV SCH (12:06)
--- NOTE | 2017-12-05 12:56 | NUR ---
ROUNDS seen by dr. bianchi at bedside
[2017-12-05] MEDS: CEFEPIME 1 GM in D5W 50 ML IV SCH (13:29)
--- NOTE | 2017-12-05 14:14 | NUR ---
notes- wound dressing changed done as ordered, partial bed bath done and linen change. Repositioned for comfort. no distress noted. Pain is controlled. Does not asking for pain medication. arm sling at all times.
[2017-12-05 14:23] LABS: CHOLESTEROL 116 mg/dL (<200); TRIGLYCERIDES 245 mg/dL (30-150)
[2017-12-05 14:24] LABS: HDL CHOLESTEROL 14 mg/dL (>45); LDL CHOLESTEROL 78 mg/dL (<100)
--- NOTE | 2017-12-05 16:12 | NUR ---
MD ROUNDS Seen by Dr. Vazquez at bedside. Made aware of patients difficulty swallowing.
--- NOTE | 2017-12-05 16:20 | NUR ---
Called Dr. Swain with a consult, spoke with Stacy
--- NOTE | 2017-12-05 17:53 | NUR ---
notes resting in bed, Pt's is asking beer and cigarette. Reminded patient that he is in the hospital at this time. pt stated okay. no distress noted. no symptoms of alcohol withdrawal at this time.
--- NOTE | 2017-12-05 18:39 | NUR ---
md rounds Seen by. dr. montez at bedside.
--- NOTE | 2017-12-05 19:00 | NUR ---
Notes In bed, refusing to eat. v/s stable. denies any shortness of breath or chest pain. no distress noted. endorsed.
--- NOTE | 2017-12-05 19:30 | NUR ---
OPENING NOTE PT IN BED, AWAKE, ALERT, CONFUSED. NO SIGNS OF DISTRESS, NO COMPLAINT OF PAIN OR DISCOMFORT. CURRENTLY SINUS RHYTHM ON THE RUBBER TIRE CURER. CARE TO CONTINUE THROUGH SHIFT.
[2017-12-05] MEDS: MUPIROCIN 2% TOPICAL OINTMENT 22 GM NS SCH (20:11)
[2017-12-05] MEDS: chlordiazePOXIDE HCL 25 MG CAPSULE PO PRN (20:55)
[2017-12-05] MEDS: LORazepam 2 MG/ML VIAL IVP PRN (23:14)
[2017-12-06] VITALS (16 sets, daily range): BP systolic 99–147
[2017-12-06] MEDS: D5W 1,000 ML IV SCH ×2 (00:35→05:39)
[2017-12-06] MEDS: chlordiazePOXIDE HCL 25 MG CAPSULE PO PRN (03:19)
[2017-12-06 06:24] LABS: BASOPHILS % (AUTO) 0.3 % (0.0-2.0); EOSINOPHILS # (AUTO) 0.3 K/uL (0.0-0.4); EOSINOPHILS % (AUTO) 2.5 % (0.0-4.0); HEMATOCRIT 33.2 % (36-54); HEMOGLOBIN 11.6 g/dL (14.0-18.0); LYMPHOCYTES # (AUTO) 1.4 K/uL (1.0-5.5); LYMPHOCYTES % (AUTO) 10.3 % (20.5-51.5); MEAN CORPUSCULAR HEMOGLOBIN 35 pg (27-31); MEAN CORPUSCULAR HGB CONC 35 % (32-36); MEAN CORPUSCULAR VOLUME 100 fL (79.0-98.0); MONOCYTES # (AUTO) 0.9 K/uL (0.0-1.0); MONOCYTES % (AUTO) 6.9 % (1.7-9.3); NEUTROPHILS # (AUTO) 10.7 K/uL (1.8-7.7); PLATELET COUNT (AUTO) 116 K/uL (130-430); RED BLOOD CELL COUNT(AUTO) 3.31 MIL/uL (4.2-6.2); RED CELL DISTRIBUTION WIDTH 14.8 % (9.0-15.0); WHITE BLOOD COUNT (AUTO) 13.3 K/uL (4.8-10.8)
[2017-12-06 06:28] LABS: ALBUMIN 2.4 g/dL (3.4-4.8); CALCIUM 8.4 mg/dL (8.4-11.0); CREATININE 1.7 mg/dL (0.55-1.30); POTASSIUM 3.1 mmol/L (3.5-5.1); TOTAL BILIRUBIN 2.6 mg/dL (0.0-1.0)
--- NOTE | 2017-12-06 07:30 | NUR ---
RECEIVED REPORT FROM RYAN COREAS. PT IN BED WITH EYES OPEN, ORIENTED TO PERSON/PLACE ONLY. O2 SAT 100% ON ROOM AIR, UNLABORED RESPIRATIONS. SR ON MONITOR. BLANCO DRAINING URINE TO GRAVITY. SCDs IN USE. LEFT ARM IN SLING FOR IMMOBILIZATION. 18LAC IV WITH D5W AT 200ML/HR, NO SIGNS INFILTRATION. HOB ELEVATED, BED LOCKED AND IN LOWEST POSITION, CALL LIGHT IN REACH. WILL CONTINUE TO MONITOR.
[2017-12-06] MEDS: MUPIROCIN 2% TOPICAL OINTMENT 22 GM NS SCH ×2 (08:24→20:38)
[2017-12-06] MEDS: FLUCONAZOLE 200 mg/ NS 100 ML IV SCH (08:24)
[2017-12-06] MEDS: THIAMINE HCL 100 MG TABLET PO SCH (08:24)
[2017-12-06] MEDS: BALSAM PERU/CASTOR OIL 60 GM OINT...G. TP SCH (08:25)
[2017-12-06] MEDS: THEOPHYLLINE ANHYDROUS 200 MG CAP.ER.24H PO SCH ×2 (08:25→20:38)
[2017-12-06] MEDS: LORazepam 2 MG/ML VIAL IVP PRN (08:54)
--- NOTE | 2017-12-06 09:01 | NUR ---
Paged Dr. Tena for orders. Spoke with exchange Roseann. Waiting for call back. Addendum: 12/06/17 at 0947 by Julia Phan RN Dr. Tena return call and states to continue with first dose of vancomycin. Notified pharmacist
--- NOTE | 2017-12-06 09:03 | NUR ---
Insulin drip: Witnessed insulin drip rate titrate to 0.5 units/hr. BS 194.
[2017-12-06] MEDS ORDERED: POTASSIUM CHLORIDE 40 MEQ in NS 250 ML IV ONE (09:30)
--- NOTE | 2017-12-06 09:32 | NUR ---
MD ROUNDS DR NEFF HERE TO EVALUATE PT. MD AWARE OF AM LABS, DECREASED POTASSIUM. RECEIVED ORDERS FOR 40MEQ KRIDER. MADE MD AWARE PT HAD DIFFICULTY TAKING PO MEDS THIS AM AND WAS NOT ABLE TO EAT BREAKFAST, MD TO ORDER SWALLOW EVAL. MD SAID PT OKAY TO DOWNGRADE TO TELE IF DR AVILA AGREES.
--- NOTE | 2017-12-06 09:43 | NUR ---
Paged Dr. Ruiz for consultation. Spoke with roopa Cordon. Waiting for call back.
--- NOTE | 2017-12-06 09:45 | NUR ---
Paged speech therapist for swallow eval, no answer. Left message.
[2017-12-06] MEDS: VANCOMYCIN HCL 1.25 GM/NS 250 ML IV SCH (09:54)
--- NOTE | 2017-12-06 10:15 | NUR ---
ROUNDS DR AVILA HERE TO EVALUATE PT. AWARE OF PT'S BRADYCARDIC EPISODE LAST NIGHT. SAYS PT STABLE TO TRANSFER TO TELE. SAID TO REMOVE SLING FROM PT'S ARM.
--- NOTE | 2017-12-06 10:29 | NUR ---
Speech Therapist Oneida return call and says she will be coming today for swallow eval.
[2017-12-06] MEDS: D5/0.45 NS 1,000 ML IV SCH ×3 (10:30→20:47)
--- NOTE | 2017-12-06 11:00 | NUR ---
MD ROUNDS DR JONES HERE TO EVALUATE PT. RECEIVED ORDERS FOR EEG.
--- NOTE | 2017-12-06 11:20 | NUR ---
PT CARE CHG BATH GIVEN, LINEN/GOWN CHANGED. WOUND CARE COMPLETED PER ORDERS.
--- NOTE | 2017-12-06 11:45 | NUR ---
TRANSFER PT TRANSFERRED TO TELE 133A ON PORTABLE MONITOR, VSS. REPORT GIVEN TO SARAH COREAS. ALL BELONGINGS TAKEN WITH PT TO NEW ROOM.
--- NOTE | 2017-12-06 11:50 | NUR ---
Patient Transferred from ICU report given at bedside, patient awake and alert, IV fluids infusing at this time, monahan draining via gravity, SCDs on for DVT prophylaxis, connected to teletypesetter monitor, safety precautions in place, bed in lowest position with 3 side rails up, alarm on, positioned with pillow support, will be back to check on patient
--- NOTE | 2017-12-06 11:55 | NUR ---
Speech Therapist Oneida at bedside evaluating patient, will follow up
--- NOTE | 2017-12-06 12:02 | NUR ---
S.T. SWALLOW EVAL COMPLETED. PT PRESENTS W/ MOD OROPHARYNGEAL DYSPHAGIA W/ INCONSISTENT BOLUS MANIPULATION AND TRANSFER (IMPULSIVE AT TIMES) AND DELAYED SWALLOW AT TIMES. NO S/S OF ASPIRATION. REC: PUREE DIET. THIN LIQUIDS OK. NURSE SARAH NOTIFIED. G8996 CK G8997 CK G8998 CK NOMS LEVEL 4
[2017-12-06] MEDS: CEFEPIME 1 GM in D5W 50 ML IV SCH (13:06)
--- NOTE | 2017-12-06 13:10 | NUR ---
Antibiotics Hung at this time, IV site patent, patient resting in bed with head of bed elevated, no complaints of pain, breathing unlabored on room air, positioned with pillow support, safety precautions remain in place, call light and bedside table left within reach, will be back to check on patient
--- NOTE | 2017-12-06 14:02 | NUR ---
Nutrition F/U Admitting Diagnosis Severe dehydration, ARF, fracture Reviewed Pertinent Medical/Surgical Hx Medical Record Patient Primary RN Medical History Comment: PMH: ethanol dependency per MD notes Pt also found w/ severe dehydration, ARF, severe hypernatremia, sepsis, cellulitis of the chest wall and forehead, acute fracture of the L humeral bone, ethanol dependency per MD notes 12/06/17 MD Progress notes: encephalopathy, dysphagia. Subjective Information Pt seen for follow up. +IV infusing, mumbles incoherently. Per RN, pt w/ problems swallowing pills this morning and is more altered, she also reported that pt is for transfer to regular room this afternoon. Per EMR, abd is soft w/ active bowel sounds. I/O: 2420/2660 -240ml per 12 hrs. PO intake: 7% x 3 meals (negligible oral intake), last BM 12/06/17 x1. Pt is not yet meeting optimal nutrition. Current Diet Order/Nutrition Support Full liquid diet x 1 day Patient/Significant Other Able To Verbalize Education Provided Not Indicated Pertinent Medications vancomycin, thiamine, D5% IV, NaCl/KCl IV Pertinent Labs Na 148 H, K 3.1 L, BG 110 H, BUN 62 H, CRE 1.7 H, ALB 2.4 L, WBC 13.3H, H/H 11.6L/33.2L AST 78H, ALP 161H Height (Feet) 5 feet Height (Inches) 6.00 inches Weight (Pounds) 150 pounds Weight (Calculated Kilograms) 68.703438 kilograms Patient Weight 68.039 kg Body Mass Index 24.21 kg/m2 %IBW 105 Notus/Adjusted Body Weight IBW: 142 lb, 65 kg Recent Weight Change Unable to verify Weight Status Appropriate Food Allergies No Last Bowel Movement Dec 06, 2017 x1 Usual Diet At Home Regular Skin Integrity Comment: Foreign scale: 12; Per Speech Pathologist note 12/04/17: 1. Left chest: Wound, present on admission. Sustained from fall at residence. Wound bed has 60% dark tissue, 40% dark red tissue. 2. Right chest: Wound, present on admission. Sustained from fall at residence.Sustained from fall at residence. Wound bed has 80% dark tissue, 20% dark red tissue. 3. Sacral area: Unstageable pressure ulcer, present on admission. 4. Left cheek: Wound, present on admission. Sustained from fall at residence. Wound bed has 90% black slough eschar, 10% yellow tissue. No odor, no drainage. 5. Left shoulder: Ecchymosis, present on admission. Current % PO Negligible <25% Estimated Energy Expenditure (kcals/day) 5254-2686 kcal/day (30-35 kcal/kg CBW for sepsis, wound healing) Estimated Protein Required (g/day) 54-102 gm/day (0.8-1.2 gm/kg CBW for ARF, sepsis, wound healing) Estimated Fluid Required (l/day) Per MD (ARF) Problem/Etiology/Signs/Symptoms Suboptimal nutritional intakes likely r/t cognitive function associated w/ dehydration as evidenced by elevated Na, and renal function labs, as well as poor PO intake report. *ongoing Increased nutritional needs related to metabolic demands as evidenced by estimated nutritional requirements for sepsis and wound healing. *ongoing Expected Outcomes/Goals - Monitor appetite and PO intakes w/ goal of pt meeting at least 75% of estimated nutritional needs, labs trending WNL, normal GI function, and skin integrity/wt maintenance Dietitian Recommendations *Recommend consider NPO status until swallow eval is performed. *Recommend swallow eval. Follow Up High Risk: F/U in 2-3days
--- NOTE | 2017-12-06 14:13 | NUR ---
Dietitian Recommendations *Recommend consider NPO status until swallow eval is performed. *Recommend swallow eval. Please see Nutrition F/U note for details. LARISA RD
--- NOTE | 2017-12-06 14:15 | NUR ---
Patient Repositioned in Bed no complaints of pain at this time, breathing unlabored on room air, IV site patent, infusing K-rider and fluids, safety precautions in place, call light and bedside table left within reach, bed alarm on, will be back to check on patient
--- NOTE | 2017-12-06 16:30 | NUR ---
Patient Resting in Bed repositioned with pillow support, heels floating, SCDs on for DVT prophylaxis, patient is confused, no signs of distress, left arm in sling at this time, safety and isolation precautions remain in place, bedside table and call light left within reach, will continue to monitor patient
--- NOTE | 2017-12-06 17:52 | NUR ---
EEG at bedside, patient awake and alert, confused, no complaints of pain, breathing unlabored on room air, IV fluids infusing at this time, safety and isolation precautions in place, bed in lowest position with 3 side rails up, bed alarm on, will continue to monitor
--- NOTE | 2017-12-06 18:33 | NUR ---
Closing Note EEG finished at bedside, patient repositioned in bed, assisted with meal tray, IV fluids infusing at this time, site patent, SCDs on for DVT prophylaxis, safety and isolation precautions remain in place, bedside table and call light left within reach, will endorse to manufacturing shift supervisor nurse
--- NOTE | 2017-12-06 20:00 | NUR ---
Initial Notes Received patient resting in bed with eyes closed, easily aroused, oriented to person only. Patient denies any acute distress or pain at this time. Vital signs stable. Breathing is even and unlabored. IV site patent/clean/dry. Lee draining to gravity. Left arm in sling, educated patient to keep arm in sling, patient verbalized understanding. Educated patient regarding use of call light for assistance and fall precautions, patient verbalized understanding. Call light in hand, fall precautions in place. Will continue to monitor.
--- NOTE | 2017-12-06 22:00 | NUR ---
Nursing Notes Patient resting in bed, easily aroused. Patient denies any acute distress or pain at this time. Left arm out of sling, repositioned arm back into sling and reinforced education that sling is to be used, patient verbalized understanding. IV site patent/clean/dry. Lee draining to gravity. Fall precautions in place, will continue to monitor.
--- NOTE | 2017-12-07 | NUR ---
Nursing Notes Patient resting in bed with eyes closed. No acute distress noted, breathing is even and unlabored. IV site patent/clean/dry. Lee draining to gravity. Will continue to monitor.
--- NOTE | 2017-12-07 02:00 | NUR ---
Nursing Notes Patient resting in bed with eyes closed, easily aroused. No acute distress noted, breathing is even and unlabored. IV site patent/clean/dry. Lee draining to gravity. Repositioned patient for comfort. Left arm remains in sling, tolerating well. Needs addressed, call light in hand, fall precautions in place.
[2017-12-07] MEDS: D5/0.45 NS 1,000 ML IV SCH ×3 (02:46→22:16)
--- NOTE | 2017-12-07 04:06 | NUR ---
Nursing Notes Patient resting in bed with eyes closed. No distress noted, breathing is even and unlabored. IV site patent/clean/dry. Call light in hand, fall precautions in place. Will continue to monitor.
[2017-12-07 05:54] LABS: BASOPHILS % (AUTO) 0.3 % (0.0-2.0); EOSINOPHILS # (AUTO) 0.5 K/uL (0.0-0.4); EOSINOPHILS % (AUTO) 3.1 % (0.0-4.0); HEMATOCRIT 32.2 % (36-54); HEMOGLOBIN 11.1 g/dL (14.0-18.0); LYMPHOCYTES # (AUTO) 1.8 K/uL (1.0-5.5); LYMPHOCYTES % (AUTO) 11.3 % (20.5-51.5); MEAN CORPUSCULAR HEMOGLOBIN 35 pg (27-31); MEAN CORPUSCULAR HGB CONC 35 % (32-36); MEAN CORPUSCULAR VOLUME 102 fL (79.0-98.0); MONOCYTES % (AUTO) 6.3 % (1.7-9.3); NEUTROPHILS # (AUTO) 12.3 K/uL (1.8-7.7); PLATELET COUNT (AUTO) 130 K/uL (130-430); RED BLOOD CELL COUNT(AUTO) 3.15 MIL/uL (4.2-6.2); RED CELL DISTRIBUTION WIDTH 14.6 % (9.0-15.0); WHITE BLOOD COUNT (AUTO) 15.6 K/uL (4.8-10.8)
[2017-12-07 06:08] LABS: CREATININE 1.37 mg/dL (0.55-1.30)
[2017-12-07 06:16] LABS: ALBUMIN 2.1 g/dL (3.4-4.8); TOTAL BILIRUBIN 1.9 mg/dL (0.0-1.0)
--- NOTE | 2017-12-07 06:40 | NUR ---
Closing Notes Patient resting in bed with eyes closed, easily aroused. Patient denies any acute distress or pain at this time. Breathing is even and unlabored. IV site patent/clean/dry, no S/S infection/infiltration noted. Lee draining yellow urine to gravity. Left arm remains in sling, patient tolerating well. Dressings remain clean/dry/intact. Needs addressed throughout shift. Call light in hand, fall precautions in place. Will continue to monitor for changes and safety, and endorse all patient care/needs to oncoming nurse.
--- NOTE | 2017-12-07 07:20 | NUR ---
Initial notes: Patient on bed awake, alert and oriented to name. Stable. I.V. access patent. L arm in sling. Lee cath draining well by gravity. SCD in placed. Safety measures in placed. Call light within reach. Report received from LYUDMILA Lopez. Addendum: 12/07/17 at 0753 by Ольга Rojo RN On MRSA contact precaution.
[2017-12-07 07:42] VITALS: BP_SYST 142
[2017-12-07] MEDS: FLUCONAZOLE 200 mg/ NS 100 ML IV SCH (08:13)
[2017-12-07] MEDS: MUPIROCIN 2% TOPICAL OINTMENT 22 GM NS SCH ×2 (08:14→20:21)
[2017-12-07] MEDS: THIAMINE HCL 100 MG TABLET PO SCH (08:14)
[2017-12-07] MEDS: BALSAM PERU/CASTOR OIL 60 GM OINT...G. TP SCH (08:15)
[2017-12-07] MEDS: THEOPHYLLINE ANHYDROUS 200 MG CAP.ER.24H PO SCH ×2 (08:22→20:22)
--- NOTE | 2017-12-07 08:30 | NUR ---
rounds: patient resting on bed. no distress noted.
[2017-12-07] MEDS ORDERED: VANCOMYCIN HCL 1 GM/NS PREMIX 250 ML IV SCH (09:00)
[2017-12-07] MEDS ORDERED: POTASSIUM CHLORIDE 40 MEQ, LIDOCAINE JECT 2% PF 100 MG 50 MG in NS 250 ML IV ONE (10:00)
[2017-12-07] MEDS: VANCOMYCIN HCL 1.25 GM/NS 250 ML IV SCH (10:02)
--- NOTE | 2017-12-07 10:14 | NUR ---
rounds: patient on bed resting. no distress noted.
[2017-12-07] MEDS: HYDROcodone/ACETAMIN 5-325 MG TAB (NORCO/ VICODIN) PO PRN ×2 (11:57→16:01)
[2017-12-07] MEDS: BENZOCAINE/MENTHOL 1 EACH LOZENGE MM PRN ×2 (11:58→22:05)
--- NOTE | 2017-12-07 12:00 | NUR ---
rounds: patient on bed sleeping. no distress noted.
[2017-12-07 12:50] VITALS: BP_SYST 132
[2017-12-07] MEDS: CEFEPIME 1 GM in D5W 50 ML IV SCH (13:52)
--- NOTE | 2017-12-07 13:59 | NUR ---
rounds: patient sleeping. no distress noted.
[2017-12-07] MEDS: DIPHENHYDRAMINE HCL 25 MG CAPSULE PO PRN ×2 (16:01→22:02)
--- NOTE | 2017-12-07 16:37 | NUR ---
wound dressing: changed wound dressing. chest area, red and no active bleeding. cleaned and changed dressing. buttocks red and no active bleeding. cleaned and changed dressing.
[2017-12-07 16:45] VITALS: BP_SYST 140
--- NOTE | 2017-12-07 18:22 | NUR ---
Closing notes: Patient on bed resting. Stable. Needs attended. On contact precaution. Lee cath draining well. SCD in placed. Safety precaution in placed. Call light within reach. Report will be given to hourly shift.
[2017-12-07 19:00] VITALS: BP_SYST 117
--- NOTE | 2017-12-07 19:05 | NUR ---
change of shift.pt.presents quiescent affect;calm.somnolent.pt.presents general status stable.respiratory status stable.pt.presents hx:falls;ecchymosis present.pt,.presents immobilizer lt.arm.isolation status;+mrsa;nares. iv fluids infusing/call light/telephone placed w/in the pt's reach.
[2017-12-07 20:00] VITALS: BP_SYST 117
--- NOTE | 2017-12-07 20:00 | NUR ---
pt.assessed.v/s assessed;values w/in normal limits.pt.has inquired when the benadryl:itch subsequent schedule.i have reviewed the emar;benadryl due 1230p-2200p.i have apprised the pt.the hour for the subsequent benadryl dose.i have apprised the pt.that snacks are available w/in the shift.pt.diet status;full liquids.pt.presents no request@this hour.pt.repositioned.i inquired if the pt.requests additional blanket;sheets.pt.requested additional sheet.i have provided the sheet.call light/telephone placed w/in the pt's reach.
--- NOTE | 2017-12-07 20:55 | NUR ---
2100p medications administered.bacitracin;nares,theophylline:po.no requests@this hour.
--- NOTE | 2017-12-07 22:22 | NUR ---
pt.assessed.pt.repositioned.pt.had requested benadryl.i have administered the benadryl:25mg po capsule.i inquired if the pt presents a sore throat;throat lozenges are ordered/prn.pt.stated,yes.i inquired if the pt.requested a throat pt.stated yes,i have administered the throat lozenge;i tablet.lozenge.no further requests.general status stable. respiratory status stable.call light /telephone placed w/in the pt's reach.
[2017-12-07 23:34] VITALS: BP_SYST 124
--- NOTE | 2017-12-08 00:05 | NUR ---
pt.assessed.v/s assessed;values w/in normal limits.pt.presents quiescent affect;calm.somnolent. monahan catheter asses;patent;urine content presents.iv access assessed;patent;iv fluids infusing. general status stable.respiratory status stable.no c/o pain,nausea.pt.repositioned.call light/ telephone placed w/in the pt's reach.
--- NOTE | 2017-12-08 02:15 | NUR ---
pt.assessed.pt.presents quiescent affect;calm.pt.requested ice water;i have provided the pitcher and cup of ice. pt.repositioned.no c/o pain,nausea.general status stable.respiratory status stable.monahan catheter assessed;patent: urine content present.iv fluids access patent;iv fluids infusing.call light/telephone placed w/in the pt's reach. 's reach.
--- NOTE | 2017-12-08 04:15 | NUR ---
pt.assessed.pt.presents quiescent affect;awake.pt.cleaned.i have changed the wound dsgs; no c/o pain,nausea.iv access;patent:iv fluids infusing.monahan catheter assessed;patent:urine content present.call light/telephone placed w/in the pt's reach.
--- NOTE | 2017-12-08 06:15 | NUR ---
pt.assessed.pt.presents quiescent affect;calm.pt.had inquired if his telephone was present:w/ the opt.i looking did not fine the phone.i reviewed the respective dept's belongings list:no reference to a cell phone noted.pt.was admitted to [facility] to [facility] to [facility].i apprised the pt.that no phone is accounted for in the respective dept's:sole belongings:no c/o pain,nausea.call light/telephone placed w/in the pt's reach.
[2017-12-08 06:41] LABS: BASOPHILS % (AUTO) 0.3 % (0.0-2.0); EOSINOPHILS # (AUTO) 0.5 K/uL (0.0-0.4); HEMATOCRIT 30.8 % (36-54); HEMOGLOBIN 10.2 g/dL (14.0-18.0); LYMPHOCYTES # (AUTO) 1.8 K/uL (1.0-5.5); MEAN CORPUSCULAR HEMOGLOBIN 34 pg (27-31); MEAN CORPUSCULAR HGB CONC 33 % (32-36); MEAN CORPUSCULAR VOLUME 102 fL (79.0-98.0); MONOCYTES # (AUTO) 0.8 K/uL (0.0-1.0); MONOCYTES % (AUTO) 5.2 % (1.7-9.3); NEUTROPHILS # (AUTO) 12.3 K/uL (1.8-7.7); NEUTROPHILS % (AUTO) 79.5 % (40.0-70.0); PLATELET COUNT (AUTO) 147 K/uL (130-430); RED BLOOD CELL COUNT(AUTO) 3.02 MIL/uL (4.2-6.2); RED CELL DISTRIBUTION WIDTH 14.5 % (9.0-15.0); WHITE BLOOD COUNT (AUTO) 15.4 K/uL (4.8-10.8)
[2017-12-08 08:00] VITALS: BP_SYST 119
--- NOTE | 2017-12-08 08:00 | NUR ---
Note Pt sitting up in bed eating his breakfast. Left arm in sling at this time. No SOB/resp distress or pain/discomfort noted. IV in left AC intact and patent infusing IVF's well at this time. Lee catheter intact and draining well. No needs noted. Call light within reach. Pt being maintained with safety and contact isolation precautions at this time.
[2017-12-08 08:12] LABS: CALCIUM 7.9 mg/dL (8.4-11.0); CREATININE 1.21 mg/dL (0.55-1.30); POTASSIUM 3.1 mmol/L (3.5-5.1); TOTAL BILIRUBIN 1.5 mg/dL (0.0-1.0)
[2017-12-08] MEDS: THEOPHYLLINE ANHYDROUS 200 MG CAP.ER.24H PO SCH ×2 (08:33→20:22)
[2017-12-08] MEDS: FLUCONAZOLE 200 mg/ NS 100 ML IV SCH (08:33)
[2017-12-08] MEDS: THIAMINE HCL 100 MG TABLET PO SCH (08:33)
[2017-12-08] MEDS: BALSAM PERU/CASTOR OIL 60 GM OINT...G. TP SCH (08:33)
[2017-12-08] MEDS: MUPIROCIN 2% TOPICAL OINTMENT 22 GM NS SCH ×2 (08:36→20:23)
[2017-12-08] MEDS: VANCOMYCIN HCL 750 MG in NS 250 ML IV SCH ×2 (09:50→21:28)
--- NOTE | 2017-12-08 11:00 | NUR ---
Note Pt encouraged to turn side to side with assist from staff q2'. Pt verbalizes understanding and does move with assist. Dressing on left cheek, coccyx, and chest are CDI all shift. Tele unit attached and intact all shift. Lee catheter intact and draining well. No needs noted. Left AC IV intact and infusing IVF"s and IVPB antibiotics. Call light within reach.
[2017-12-08 11:40] VITALS: BP_SYST 132
[2017-12-08] MEDS: CEFEPIME 1 GM in D5W 50 ML IV SCH (12:42)
[2017-12-08] MEDS: D5/0.45 NS 1,000 ML IV SCH (12:52)
--- NOTE | 2017-12-08 14:15 | NUR ---
Note Pt was seen and assessed by Dr Vazquez at this time. Questions/concerns were answered at this time. Pt has been resting in right side and supine. No needs were noted. Call light within reach.
[2017-12-08] MEDS ORDERED: POTASSIUM CHLORIDE 20 MEQ/PKT PACKET PO ONE (14:45)
[2017-12-08 15:36] VITALS: BP_SYST 114
--- NOTE | 2017-12-08 16:15 | NUR ---
Note Pt has been assisted in turning q2' all shift from right side to back. Pt finds moving to left side too painful at this time. Pt denies any needs at this time. Call light within reach.
[2017-12-08] MEDS: HYDROcodone/ACETAMIN 5-325 MG TAB (NORCO/ VICODIN) PO PRN ×2 (17:58→23:46)
[2017-12-08] MEDS: BENZOCAINE/MENTHOL 1 EACH LOZENGE MM PRN (18:01)
--- NOTE | 2017-12-08 18:30 | NUR ---
Note Pt was given pain PO medication at this time for generalized body pain. Pt has tele unit on and is monitored closely. Pt has been stable. Pt frequently pulls and moves tele leads. Pt requested/instructed not to move the leads. Pt has been checked on q1' and PRN for needs and care all shift. IV in left AC intact and patent infusing IVF's. Call light within reach. Pt next to nurses' station for close observation.
--- NOTE | 2017-12-08 19:34 | NUR ---
INITIAL NOTES Received handoff report from offgoing nurse at the bedside. Patient is resting comfortably in bed lying on his right side with eyes closed. IV site is intact, currently infusing D5 1/2 NS at 75ml/hr. No SOB, no acute distress, no complaints of pain at this time. Bed is locked, in the lowest position, 2x side rails up, bed alarm is on. Call light is within reach. Will continue with plan of care.
[2017-12-08 20:01] VITALS: BP_SYST 124
--- NOTE | 2017-12-08 23:18 | NUR ---
Patient pulled out IV site. New IV started in the right forearm, #22G. IV antibiotics and IV fluids continued.
--- NOTE | 2017-12-08 23:46 | NUR ---
Patient is complaining of pain on the left ribs, lower back, and left shoulder. Provided Henderson pain medication per MD order, see eMAR for details.
[2017-12-09 00:18] VITALS: BP_SYST 112
--- NOTE | 2017-12-09 01:00 | NUR ---
Patient is still complaining of lower back pain. Offered to assist the patient to turn and reposition; however, patient turned himself to the right side. Patient does not want to turn to the left side since it causes an increase in pain on his left shoulder. Encouraged patient to call for assistance.
--- NOTE | 2017-12-09 02:13 | NUR ---
Patient is sleeping, resting comfortably in bed. No SOB, no acute distress, no signs of pain or facial grimacing. Breathing is even and unlabored with visible chest rise and fall noted. Bed is locked, in the lowest position, 2x side rails up, bed alarm is on. Call light is within reach.
[2017-12-09] MEDS: LORazepam 2 MG/ML VIAL IVP PRN ×2 (03:15→17:25)
--- NOTE | 2017-12-09 04:00 | NUR ---
Wound care done per wound care orders.
[2017-12-09] MEDS: D5/0.45 NS 1,000 ML IV SCH ×3 (05:23→23:22)
--- NOTE | 2017-12-09 05:30 | NUR ---
Patient requesting for assistance for more ice water, and to empty the urinal. Emptied the urinal per patient request. 300ml out. Also provided fresh ice water for the patient.
[2017-12-09 07:24] LABS: BASOPHILS % (AUTO) 0.2 % (0.0-2.0); EOSINOPHILS # (AUTO) 0.4 K/uL (0.0-0.4); EOSINOPHILS % (AUTO) 2.4 % (0.0-4.0); HEMATOCRIT 29.8 % (36-54); HEMOGLOBIN 10.4 g/dL (14.0-18.0); LYMPHOCYTES % (AUTO) 12.3 % (20.5-51.5); MEAN CORPUSCULAR HEMOGLOBIN 35 pg (27-31); MEAN CORPUSCULAR HGB CONC 35 % (32-36); MEAN CORPUSCULAR VOLUME 101 fL (79.0-98.0); MONOCYTES # (AUTO) 0.8 K/uL (0.0-1.0); MONOCYTES % (AUTO) 5.1 % (1.7-9.3); NEUTROPHILS # (AUTO) 13.1 K/uL (1.8-7.7); RED BLOOD CELL COUNT(AUTO) 2.96 MIL/uL (4.2-6.2); RED CELL DISTRIBUTION WIDTH 14.5 % (9.0-15.0)
--- NOTE | 2017-12-09 07:24 | NUR ---
Closing Notes Handoff report given to Luci COREAS at the bedside. Patient is resting comfortably in bed with eyes closed. No SOB, no acute distress, no signs of pain. Bed is locked, in the lowest position, 2x side rails up, bed alarm is on. Call light is within reach. Fall and safety precautions maintained. All needs have been met during this shift.
[2017-12-09 07:30] LABS: CALCIUM 8.2 mg/dL (8.4-11.0); CREATININE 1.09 mg/dL (0.55-1.30); POTASSIUM 3.5 mmol/L (3.5-5.1)
[2017-12-09 07:33] LABS: WHITE BLOOD COUNT (AUTO) 16.3 K/uL (4.8-10.8)
[2017-12-09 07:56] VITALS: BP_SYST 105
--- NOTE | 2017-12-09 08:00 | NUR ---
Note Pt eating his breakfast - requested that he get his diet advanced to regular diet. Order received and pt's diet was advanced and dietary will bring in regular diet tray. IV in right hand intact and patent infusing IVF's well. No SOB/resp distress noted at this time. Pain tolerable at this time. Tele unit intact and attached at this time. No needs noted at this time. Call light within reach.
[2017-12-09 08:11] LABS: PLATELET COUNT (AUTO) 159 K/uL (130-430)
[2017-12-09] MEDS: THEOPHYLLINE ANHYDROUS 200 MG CAP.ER.24H PO SCH ×2 (08:59→21:21)
[2017-12-09] MEDS: MUPIROCIN 2% TOPICAL OINTMENT 22 GM NS SCH ×2 (08:59→21:20)
[2017-12-09] MEDS: THIAMINE HCL 100 MG TABLET PO SCH (08:59)
[2017-12-09] MEDS: FLUCONAZOLE 200 mg/ NS 100 ML IV SCH (08:59)
[2017-12-09] MEDS: BALSAM PERU/CASTOR OIL 60 GM OINT...G. TP SCH (09:00)
[2017-12-09] MEDS: VANCOMYCIN HCL 750 MG in NS 250 ML IV SCH ×2 (10:38→21:22)
--- NOTE | 2017-12-09 10:51 | NUR ---
Nutrition F/U Admitting Diagnosis Severe dehydration, ARF, fracture Reviewed Pertinent Medical/Surgical Hx Medical Record Patient Primary RN Medical History Comment: PMH: ethanol dependency per MD notes Pt also found w/ severe dehydration, ARF, severe hypernatremia, sepsis, cellulitis of the chest wall and forehead, acute fracture of the L humeral bone, ethanol dependency per MD notes 12/06/17 MD Progress notes: encephalopathy, dysphagia. Subjective Information Pt seen for follow up. Pt is alert and awake since last visit. Per RN, pt's diet was advanced to regular diet this morning. Pt reported of fair appetite, he stated he was able to eat 2 slices of toast and juice this morning. He complained of some difficulty swallowing. Per Nephrology notes, renal function is recovered. Per EMR, abd is soft and non-distended w/ active bowel sounds. I/O: 2520/700 +1820ml per 12 hrs. PO intake 37% x 3 meals x 1 refusal 12/08/17. Pt verbalized food dislikes, RD will take note in [employer]. Pt is not yet meeting adequate nutrition. Pt may benefit from Ensure and Ufad supplements. Pt agreed on both and stated he likes Ensure. Current Diet Order/Nutrition Support Regular diet (12/09/17 Breakfast) Patient/Significant Other Able To Verbalize Education Provided Not Indicated Pertinent Medications vancomycin, thiamine, D5% IV, NaCl IV Pertinent Labs Na 144 WNL (improved), K 3.5 WNL (improved), BG 102 H, BUN 16 WNL (improved), CRE 1.09 WNL (improved), ALB 2 L, WBC 16.3H, H/H 10.4L/29.8L, AST 61 H, ALP 171 H, Ca 8.2 L Height (Feet) 5 feet Height (Inches) 6.00 inches Weight (Pounds) 150 pounds Weight (Calculated Kilograms) 68.235183 kilograms Patient Weight 68.039 kg Body Mass Index 24.21 kg/m2 %IBW 105 Hobbs/Adjusted Body Weight IBW: 142 lb, 65 kg Recent Weight Change Unable to verify Weight Status Appropriate Food Allergies No Last Bowel Movement Dec 06, 2017 x1 Usual Diet At Home Regular Skin Integrity Comment: Foreign scale: 14; Per Golf Club Assembler note 12/04/17: 1. Left chest: Wound, present on admission. Sustained from fall at residence. Wound bed has 60% dark tissue, 40% dark red tissue. 2. Right chest: Wound, present on admission. Sustained from fall at residence.Sustained from fall at residence. Wound bed has 80% dark tissue, 20% dark red tissue. 3. Sacral area: Unstageable pressure ulcer, present on admission. 4. Left cheek: Wound, present on admission. Sustained from fall at residence. Wound bed has 90% black slough eschar, 10% yellow tissue. No odor, no drainage. 5. Left shoulder: Ecchymosis, present on admission. Current % PO Poor 37% Estimated Energy Expenditure (kcals/day) 0098-0388 kcal/day (30-35 kcal/kg CBW for sepsis, wound healing) Estimated Protein Required (g/day) 54-102 gm/day (0.8-1.2 gm/kg CBW for ARF, sepsis, wound healing) Estimated Fluid Required (l/day) Per MD (ARF) Problem/Etiology/Signs/Symptoms Suboptimal nutritional intakes likely r/t cognitive function associated w/ dehydration as evidenced by elevated Na, and renal function labs, as well as poor PO intake report. *ongoing Increased nutritional needs related to metabolic demands as evidenced by estimated nutritional requirements for sepsis and wound healing. *ongoing Expected Outcomes/Goals - Monitor appetite and PO intakes w/ goal of pt meeting at least 75% of estimated nutritional needs, labs trending WNL, normal GI function, and skin integrity/wt maintenance Dietitian Recommendations *Recommend Regular diet w/ Ensure BID and Fuad BID. Oral supplement will provide additional 860 kcal and 45 gm protein daily. Follow Up High Risk: F/U in 2-3days
--- NOTE | 2017-12-09 11:00 | NUR ---
Note Pt worked with physical therapy and now resting back in bed. Dr Olivares did rounds at 09am and no new orders given at this time. Pt rec'd his regular diet and ate it well. Pain tolerable at this time. IVPB antibiotics infusing well and no needs noted. Call light within reach.
--- NOTE | 2017-12-09 11:02 | NUR ---
Dietitian Recommendations *Recommend Regular diet w/ Ensure BID and Fuad BID. Oral supplement will provide additional 860 kcal and 45 gm protein daily. Please see Nutrition F/U note for details. LARISA, RD
[2017-12-09 11:34] VITALS: BP_SYST 119
[2017-12-09] MEDS: CEFEPIME 1 GM in D5W 50 ML IV SCH (12:43)
[2017-12-09] MEDS: HYDROcodone/ACETAMIN 5-325 MG TAB (NORCO/ VICODIN) PO PRN (13:02)
--- NOTE | 2017-12-09 13:55 | NUR ---
Note Pt resting in bed drowsy. No needs noted at this time. IVF's and IVPB antibiotics infusing well. Call light within reach.
--- NOTE | 2017-12-09 14:15 | NUR ---
PHYSICAL THERAPY CO-SIGN The Physical Therapy Progress Notes documented by Information Systems Security Developer have been reviewed. I concur with the documentation of this SHEET CUTTING OPERATOR. Plan: continue as per plan of care as he continues to make some good and steady progress with PT. Reviewed/Co-Signed by: Charlene Gandhi,PT Documentation Done by: Osman Ruiz, SHEET CUTTING OPERATOR Addendum: 12/09/17 at 1441 by Charlene Gandhi PT Amended: Links added.
[2017-12-09 15:18] VITALS: BP_SYST 130
--- NOTE | 2017-12-09 16:05 | NUR ---
Note Pt resting in bed and denies any needs at this time. Pt stable. Call light within reach.
[2017-12-09] MEDS: DIPHENHYDRAMINE HCL 25 MG CAPSULE PO PRN (17:32)
--- NOTE | 2017-12-09 18:45 | NUR ---
Note Dr Vazquez on the floor and assessment of pt being done. Pt resting in bed after receiving his Benadryl PO and Ativan IVP. Pt's left arm in sling at this time and right hand IV intact and patent all shift infusing IVF's well. No SOB/resp distress or severe pain/discomfort noted at this time. Pt was checked on q1' and PRN all shift for care and needs. Dressings on left cheek, chest and coccyx intact at this time. No needs noted. Call light within reach.
--- NOTE | 2017-12-09 19:57 | NUR ---
INITIAL NOTES RECEIVED HANDOFF REPORT FROM OFFGOING NURSE AT THE BEDSIDE. PATIENT IS RESTING COMFORTABLY IN BED WITH EYES CLOSED. EASILY AROUSABLE BY VOICE. NO SOB, NO ACUTE DISTRESS, NO COMPLAINTS OF PAIN. BED IS LOCKED, IN THE LOWEST POSITION, 2X SIDE RAILS UP, BED ALARM IS ON. CALL LIGHT IS WITHIN REACH. WILL CONTINUE WITH PLAN OF CARE.
[2017-12-09 20:06] VITALS: BP_SYST 115
--- NOTE | 2017-12-09 22:00 | NUR ---
Patient is resting in bed with his eyes closed. Breathing is even and unlabored with visible chest rise and fall noted. No signs of pain or facial grimacing. Call light is within reach.
--- NOTE | 2017-12-09 23:37 | NUR ---
Patient is resting comfortably in bed. No SOB, no acute distress, no complaints of pain at this time. Bed is locked, in the lowest position, side rails up, bed alarm is on. Call light is within reach. LOG ROLLER also at the bedside providing nourishment for the patient.
[2017-12-10 01:29] VITALS: BP_SYST 119
[2017-12-10] MEDS: BENZOCAINE/MENTHOL 1 EACH LOZENGE MM PRN (01:37)
--- NOTE | 2017-12-10 01:37 | NUR ---
Patient complained of a dry sore throat. Provided cepacol PRN per md order, see eMAR for details.
--- NOTE | 2017-12-10 03:04 | NUR ---
Patient is resting comfortably in bed with eyes closed. No SOB, no acute distress, no signs of pain. Breathing even and unlabored with visible chest rise and fall noted. Call light within reach.
--- NOTE | 2017-12-10 04:12 | NUR ---
Wound care done per wound care guidelines. Also provided patient with partial bed bath.
--- NOTE | 2017-12-10 04:41 | NUR ---
Patient stated that he lost his shirt and pants. Reviewed personal belongings list, and patient did not come to the [facility] floor with clothing. However, reviewing the ER nurses noted, one of the nurses stated that they removed his clothing that was covered in urine and changed the patient into a hospital gown. Charge nurse Liza made aware that the patient is missing his clothing. Liza stated that she will call security.
--- NOTE | 2017-12-10 06:55 | NUR ---
Patient is complaining that his television is broken. Power button does not work. Informed oncoming dayshift nurse about the situation. Also informed mental health unit lead psychologist to alert the Engineering department when they are open.
--- NOTE | 2017-12-10 07:17 | NUR ---
Closing Notes Handoff report given to Luci COREAS at the bedside. Patient is awake and alert, resting comfortably in bed. No SOB, no acute distress, no complaints of pain. Bed is locked, in the lowest position, 2x side rails up, bed alarm is on. Call light is within reach. IV infusing IV fluids at ordered rate, see eMAR. Fall and safety precautions maintained. All needs have been met during this shift.
[2017-12-10 08:00] VITALS: BP_SYST 128
--- NOTE | 2017-12-10 08:00 | NUR ---
Note Pt resting in bed eating his breakfast. No SOB/resp distress or severe pain/discomfort noted at this time. IV in right hand intact and patent infusing IVF's well. Left arm in sling at this time. No needs noted. Dressings on left cheek,chest and coccyx CDI at this time. Call light within reach.
[2017-12-10] MEDS: THIAMINE HCL 100 MG TABLET PO SCH (09:29)
[2017-12-10] MEDS: THEOPHYLLINE ANHYDROUS 200 MG CAP.ER.24H PO SCH ×2 (09:30→20:19)
[2017-12-10] MEDS: HYDROcodone/ACETAMIN 5-325 MG TAB (NORCO/ VICODIN) PO PRN (09:30)
[2017-12-10] MEDS: BALSAM PERU/CASTOR OIL 60 GM OINT...G. TP SCH (09:31)
[2017-12-10] MEDS: FLUCONAZOLE 200 mg/ NS 100 ML IV SCH (09:31)
[2017-12-10] MEDS: MUPIROCIN 2% TOPICAL OINTMENT 22 GM NS SCH (09:31)
[2017-12-10] MEDS: VANCOMYCIN HCL 750 MG in NS 250 ML IV SCH ×2 (10:43→21:12)
--- NOTE | 2017-12-10 11:40 | NUR ---
Note Pt resting in bed with IVPB antibiotics running at this time. Pt assisted in turning q2' and PRN for comfort. No SOB/resp distress or pain/discomfort noted at this time. Call light within reach. Left arm in sling at this time.
[2017-12-10 12:12] VITALS: BP_SYST 124
[2017-12-10] MEDS: CEFEPIME 1 GM in D5W 50 ML IV SCH (12:39)
[2017-12-10] MEDS: DIPHENHYDRAMINE HCL 25 MG CAPSULE PO PRN (12:40)
--- NOTE | 2017-12-10 13:15 | NUR ---
note Pt resting in bed with IVPB antibiotics running through right hand IV site. Pain tolerable at this time. No SOB/resp distress or pain/discomfort noted at this time. Left arm in sling. Dressings on left cheek,chest and coocyx intact and dry at this time. Call light within reach.
--- NOTE | 2017-12-10 14:15 | NUR ---
PHYSICAL THERAPY CO-SIGN The Physical Therapy Progress Notes documented by Esthetician And Manager Medical Spa have been reviewed. I concur with the documentation of this RECORD TESTER. Patient continues to make some slow but good and steady progress with PT. Reviewed/Co-Signed by: Charlene Gandhi,PT Documentation Done by: Osman Ruiz, RECORD TESTER Addendum: 12/10/17 at 1454 by Charlene Gandhi PT Amended: Links added.
--- NOTE | 2017-12-10 15:23 | NUR ---
Note Pt resting in bed. Denies any needs at this time. Pt stable. Call light within reach.
--- NOTE | 2017-12-10 16:10 | NUR ---
WOUND Re-EVALUATION: Late note for 1609 secondary to patient care. Wound Consult received from Dr. Vazquez. Thank you, Dr. Vazquez, for the consult. Patient received in a Keena Bed with an Isoflex HERNÁN mattress with low air loss therapy, awake, alert, and oriented. Patient is unable to turn in bed independently. Foreign Score is a 16. Past Medical History: Long history of alcohol dependency, lives at home by himself, was found lying down on floor in the house for almost 2 weeks by the police. The patient apparently fell and sustained fracture to the left shoulder and stayed lying down until they found him on the floor. Intrinsic factors that delay wound healing: Alcohol dependency. Extrinsic factors that delay wound healing: Decreased mobility. Microbiology: Blood culture results 2 negative. Urine culture results negative. MRSA screen results positive. Patient is status post fall at residence. Skin assessment: Wound Assessment: 1. Left chest: Wound, present on admission. Sustained from fall at residence. Wound care performed by gate cutter nurse this morning at 0400. Dressing not removed for assessment secondary to doing so would decrease wound temperature and retard wound healing rate. 2. Right chest: Wound, present on admission. Sustained from fall at residence. Sustained from fall at residence. Wound care performed by gate cutter nurse this morning at 0400. Dressing not removed for assessment secondary to doing so would decrease wound temperature and retard wound healing rate. Recommend continue: Cleanse wounds with normal saline. Pat dry. Apply moisture barrier cream to involved areas. Apply Venelex ointment onto wound beds. Cover with foam dressing, then transparent dressing. Perform site care daily, as needed and as needed for dressing soiling or dislodgment. 3. Sacral area: Unstageable pressure ulcer, present on admission. Wound care performed by gate cutter nurse this morning at 0400. Dressing not removed for assessment secondary to doing so would decrease wound temperature and retard wound healing rate. Recommend continue: Cleanse wounds with normal saline. Pat dry. Apply moisture barrier cream to involved areas. Apply Venelex ointment onto wound beds. Cover with foam dressing, then transparent dressing. Perform site care daily, as needed and as needed for dressing soiling or dislodgment. 4. Left cheek: Wound, present on admission. Sustained from fall at residence. Wound bed has 70% black slough eschar, 20% red tissue, 10% pink tissue. No odor, no drainage. Periwound intact. Wound measures 2.5 cm x 4.5 cm. Recommend: Cleanse wounds with normal saline. Pat dry. Apply moisture barrier cream to involved areas. Apply Venelex ointment onto wound beds. Cover with foam dressing, then transparent dressing. Perform site care daily, as needed and as needed for dressing soiling or dislodgment. 5. Left shoulder: Ecchymosis, present on admission. Recommend continue: No dressings needed. Continue to monitor site for worsening condition. Contact wound care is nurse if site opens, drains, or worsens. Also recommend continue: Reposition patient side to side only every 2 hours with pillow support, and off-load pressure areas with pillows for pressure re-distribution. Offload, elevate and float bilateral heels with one pillow lengthwise under each extremity at all times. Perform skin care and monitor skin integrity Q shift. Use moisture barrier cream on buttocks and other moisture susceptible areas QID and as needed for soiling. Maintain patient on a low air-loss mattress.
--- NOTE | 2017-12-10 16:15 | NUR ---
Discharge Planning: Late Entry for 12/09/17- SNF packet was given to [facility] for evaluation. Martín stated that [facility] would contact pt's insurance for authorization. Addendum: 12/10/17 at 1618 by Sanaz Resendiz LCSW [facility] has contacted Martín from [facility] several times today to follow up on status of auth for pt for short term SNF placement. Martín alerted [facility] that [facility] cannot take pt due to trouble obtaining auth from insurance. [facility] will follow up with other SNF options. Addendum: 12/10/17 at 1626 by Sanaz Resendiz LCSW [facility] has faxed pt's information to [facility] ([phone]) and [facility] ([phone]) for review. CONTACT CENTER ANALYST will follow up to see if they can accept to.
[2017-12-10 16:21] VITALS: BP_SYST 122
[2017-12-10] MEDS: D5/0.45 NS 1,000 ML IV SCH (16:45)
--- NOTE | 2017-12-10 18:04 | NUR ---
CONSULTATION PAGED REASON FOR CONSULT: multiple wounds WAS CONSULT CALLED: y PERSON NOTIFIED: Bev CONSULTING PHYSICIAN: Dr. Acosta JEWEL BEARING POLISHER PHONE NUMBER: [phone] ORDERING PHYSICIAN: Dr. Vazquez
--- NOTE | 2017-12-10 18:15 | NUR ---
Note Pt's left cheek was checked and evaluated by Wesly woundcare RN. Cleaned and dressed at this time. Dr Yu and Dr Vazquez spoke to pt and plan of care was discussed again. Pt forgetful and confused at times. Pt denies any SOB/resp distress or severe pain/discomfort noted at this time. Pt was checked on q1' and PRN all shift for care and needs. IVF's and IVPB antibiotics infusing well at this time through right hand IV site. Chest dressings X3 and coccyx dressing intact and dry. No needs noted. Call light within reach.
--- NOTE | 2017-12-10 18:20 | NUR ---
Note Spoke to Dr Acosta and update on possible I&D of coccyx wound discussed (per Dr Vazquez's instructions). Dr Acosta will come see pt tomorrow.
--- NOTE | 2017-12-10 19:58 | NUR ---
Initial Notes Received patient resting in bed, awake, alert, oriented but slow to answer. Patient denies any acute distress or pain at this time. Breathing is even and unlabored on room air. Vital signs stable. IV site patent/clean/dry, bruising noted around insertion site, patient refusing to allow start of new IV access at this time. Left arm in sling, neurovascular check within normal, patient tolerating well. Needs addressed. Educated patient regarding use of call light for assistance and fall precautions, patient verbalized understanding. Call light in hand, fall precautions in place. Will continue to monitor for changes and safety.
[2017-12-10 20:00] VITALS: BP_SYST 130
--- NOTE | 2017-12-10 22:03 | NUR ---
Nursing Notes/ MD Rounds Patient resting in bed with eyes closed, easily aroused. Patient denies any acute distress or pain at this time. Breathing is even and unlabored. IV site patent/clean/dry, no s/s infiltration noted, patient continue to refuse offer to start new IV access due to bruising around site. Needs addressed. Call light in hand, fall precautions in place. Dr. Acosta in to see patient.
--- NOTE | 2017-12-11 | NUR ---
Nursing Notes Patient resting in bed with eyes closed, easily aroused. Patient denies any acute distress or pain at this time. Breathing is even and unlabored. IV site patent/clean/dry. Hygiene care provided to patient by SPECIAL CERTIFICATE DICTATOR. Educated patient regarding NPO status for procedure in AM, patient verbalized understanding. Call light in hand, fall precautions in place.
[2017-12-11 00:28] VITALS: BP_SYST 122
--- NOTE | 2017-12-11 02:03 | NUR ---
Nursing Notes Patient resting in bed, awake, slightly disoriented. Reoriented patient to surroundings. Patient denies any acute distress or pain at this time. Breathing is even and unlabored. IV site patent/clean/dry. Needs addressed. Call light in hand, fall precautions in place. Will continue to monitor for changes and safety.
--- NOTE | 2017-12-11 04:48 | NUR ---
Nursing Notes Patient resting in bed, awake. Patient denies any acute distress or pain at this time. Assisted patient with toileting needs. Wound care and dressing change provided. Left arm remains in sling, neurovascular check within normal. Needs addressed. Call light in hand, fall precautions in place
[2017-12-11] MEDS: HYDROcodone/ACETAMIN 5-325 MG TAB (NORCO/ VICODIN) PO PRN ×2 (05:36→12:58)
--- NOTE | 2017-12-11 06:43 | NUR ---
Closing Notes Patient resting in bed, awake. Patient denies any acute distress or pain at this time. Breathing is even and unlabored. IV site patent/clean/dry, no S/S infection/infiltration noted. Left arm remains in sling, neurovascular checks normal, patient tolerating well. Needs addressed throughout shift. Call light in hand, fall precautions in place. Will continue to monitor for changes and safety, and endorse all patient care/needs to oncoming nurse. Patient remains NPO for procedure today, signed consent charted.
[2017-12-11 06:47] LABS: CALCIUM 8.7 mg/dL (8.4-11.0); CREATININE 1.05 mg/dL (0.55-1.30); POTASSIUM 3.4 mmol/L (3.5-5.1)
[2017-12-11 06:48] LABS: BASOPHILS % (AUTO) 0.2 % (0.0-2.0); EOSINOPHILS # (AUTO) 0.3 K/uL (0.0-0.4); EOSINOPHILS % (AUTO) 1.8 % (0.0-4.0); HEMATOCRIT 32.4 % (36-54); HEMOGLOBIN 11.3 g/dL (14.0-18.0); LYMPHOCYTES # (AUTO) 1.5 K/uL (1.0-5.5); LYMPHOCYTES % (AUTO) 9.5 % (20.5-51.5); MEAN CORPUSCULAR HEMOGLOBIN 35 pg (27-31); MEAN CORPUSCULAR HGB CONC 35 % (32-36); MEAN CORPUSCULAR VOLUME 101 fL (79.0-98.0); MONOCYTES # (AUTO) 0.6 K/uL (0.0-1.0); MONOCYTES % (AUTO) 4.2 % (1.7-9.3); NEUTROPHILS # (AUTO) 12.9 K/uL (1.8-7.7); NEUTROPHILS % (AUTO) 84.3 % (40.0-70.0); PLATELET COUNT (AUTO) 228 K/uL (130-430); RED BLOOD CELL COUNT(AUTO) 3.23 MIL/uL (4.2-6.2); WHITE BLOOD COUNT (AUTO) 15.3 K/uL (4.8-10.8)
[2017-12-11 07:03] LABS: VANCOMYCIN,RANDOM 21.6 ug/mL
--- NOTE | 2017-12-11 08:00 | NUR ---
Opening Note Report received from [facility] shift nurse. Patient is current awake and resting in bed. Isolation, and safety precautions are in place. IV is on the left ac 18 running D51/2NS@75. Patient is able to use the urinal. Multiple wounds noted. Patient is scheduled for surgical debridement by Dr. Acosta. Call light is within reach and bed is in low position. Will continue to monitor.
[2017-12-11 08:37] VITALS: BP_SYST 128
[2017-12-11] MEDS: THIAMINE HCL 100 MG TABLET PO SCH (09:37)
[2017-12-11] MEDS: FLUCONAZOLE 200 mg/ NS 100 ML IV SCH (09:37)
[2017-12-11] MEDS: D5/0.45 NS 1,000 ML IV SCH ×2 (09:37→21:20)
--- NOTE | 2017-12-11 09:50 | NUR ---
Care hand off Report given to Medhat COREAS who will be taking over the patient's care. Patient is in stable condition. 0900 medications were given.
--- NOTE | 2017-12-11 09:51 | NUR ---
NURSING NOTE RECEIVED REPORT AND PATIENT FROM LYUDMILA JIMÉNEZ. PATIENT IN BED, AWAKE, ALERT, VERBALLY RESPONSIVE. DENIES ANY PAINA TA THIS TIME. NO RESPIRATORY DISTRESS NOTED. REMIND PATIENT NOT TO GET UP BY HIMSELF AND TO ASK FOR ASSISTANCE. BED LOCKED, ON LOWEST POSITION, BED ALARM ACTIVATED. CALL LIGHT WITHIN REACH, WILL CONTINUE TO MONITOR.
[2017-12-11] MEDS: VANCOMYCIN HCL 750 MG in NS 250 ML IV SCH ×2 (10:38→21:19)
[2017-12-11] MEDS: BALSAM PERU/CASTOR OIL 60 GM OINT...G. TP SCH (10:39)
--- NOTE | 2017-12-11 11:57 | NUR ---
DC planning: per previous conversation with pt. on 12/09 that the pt. agreed with transfer to snf to build up his strength and wound care. Again, CM spoke with the pt. today, the pt. want to go back to his apartment with home health follow up. He stated he is late on paying rent for his apartment. He does not remember his landlord phone number, all contact numbers are in his phone. He does not have his phone and he was unconscious when he was admitted to this hp. SARATH Yo made aware. > Regarding DCP, cm to f/u with md . The pt. is scheduled for excision and debridement of rt. face and sacrum ulcer, left axilla, rt chest and left chest wound today at 1330. The dcp is pending wound care instruction post procedure today and physical therapy evaluation.
[2017-12-11] MEDS: CEFEPIME 1 GM in D5W 50 ML IV SCH (12:34)
--- NOTE | 2017-12-11 13:20 | NUR ---
PICKED UP PATIENT IS PICKED UP FOR SCHEDULED WOUND DEBRIDEMENT PROCEDURE. PATIENT IS AWAKE, ALERT, VERBALLY RESPONSIVE. VS STABLE. NO RESPIRATORY DISTRESS.
[2017-12-11 13:24] VITALS: BP_SYST 125
[2017-12-11] MEDS ORDERED: ONDANSETRON HCL 4 MG/2 ML VIAL IVP PRN (14:00)
[2017-12-11] MEDS ORDERED: fentaNYL CITRATE/PF 100 MCG/2 ML AMP IVP PRN ×2 (14:00)
[2017-12-11] MEDS ORDERED: fentaNYL CITRATE/PF 100 MCG/2 ML AMP ONE (14:20)
[2017-12-11] MEDS ORDERED: LR 1,000 ML IV.SOLN IV ONE (14:20)
[2017-12-11] MEDS ORDERED: MIDAZOLAM HCL 5 MG/ML VIAL (VERSED) IV ONE (14:20)
[2017-12-11] MEDS ORDERED: PROPOFOL 200MG/ 20ML VIAL (DIPRIVAN) IV ONE (14:20)
[2017-12-11] MEDS ORDERED: BACITRACIN 1 GM OINT TP ONE (14:20)
[2017-12-11] MEDS ORDERED: NS IRRIG SOLN 1000 ML IR ONE (14:20)
--- NOTE | 2017-12-11 14:51 | NUR ---
PT CAME BACK PATIENT BROUGHT BACK FROM OR VIA PATIENT'S BED. PATIENT REMAINS AWAKE, ALERT, VERBALLY RESPONSIVE. DENIES ANY PAIN AT THIS TIME. DEBRIDEMENT WAS DONE ON THE LEFT FACE, RIGHT CHEST, LEFT CHEST, AND SACRUM. PATIENT IS BACK ON REGULAR DIET ORDERED BY DR. SCHRADER. MADE DIETARY AWARE.
--- NOTE | 2017-12-11 14:53 | NUR ---
PT NOTES CHART REVIEWED AND CLEARED FOR PT BY RN. PATIENT SIDELINE SLEEPING AND EASILY AROUSED. PATIENT DECLINES PARTICIPATION IN THERAPY AT THIS TIME D/T PENDING DEBRIDEMENT IN AFTERNOON, EDUCATION AND MOTIVATION PROVIDED ON BENEFITS OF THERAPY AND CONTINUED TO DECLINE EOB OR BED EXERCISES AT THIS TIME. RETURNED TO PATIENT ROOM TO ATTEMPT THERAPY ,BUT HAS BEEN TAKEN FOR PROCEDURE AT THIS TIME. WILL ATTEMPT THERAPY TOMORROW IF POSSIBLE, RN MADE AWARE. Addendum: 12/11/17 at 1510 by Charlene Gandhi PT 7 PHYSICAL THERAPY CO-SIGN The Physical Therapy Progress Notes documented by Audio Visual Collections Coordinator have been reviewed. Reviewed/Co-Signed by: Charlene Gandhi,PT Documentation Done by: Jhon Waldrop, ACCOUNT EXECUTIVE SALES REPRESENTATIVE
--- NOTE | 2017-12-11 16:33 | NUR ---
nursing notes PATIENT IN BED, EATING SNACK. DENIES ANY PAIN AT THIS TIME. VS STABLE, NO SHORTNESS OF BREATH NOTED. CALL LIGHT WITHIN REACH, WILL CONTINUE TO MONITOR.
[2017-12-11 16:34] VITALS: BP_SYST 128
--- NOTE | 2017-12-11 18:42 | NUR ---
CLOSING NOTE PATIENT MOVED TO ROOM 127B, PATIENT IN BED REMAINS AWAKE, ALERT, VERBALLY RESPONSIVE. DENIES ANY PAIN AT THIS TIME. NO SHORTNESS OF BREATH OBSERVED. BED LOCKED, ON LOWEST POSITION, BED ALARM ACTIVATED. NEEDS MET AND ATTENDED. CALL LIGHT WITHIN REACH, WILL GIVE REPORT TO GRANTS SPECIALIST NURSE.
[2017-12-11 20:00] VITALS: BP_SYST 118
--- NOTE | 2017-12-11 20:00 | NUR ---
Initial Notes Received patient resting in bed with eyes closed, easily aroused. Patient denies any acute distress or pain at this time. Vital signs stable. Breathing is even and unlabored. IV site patent/clean/dry. Patient s/p debridement of wounds, surgical dressings clean/dry/intact. Needs addressed. Call light in hand, fall precautions in place. Will continue to monitor.
--- NOTE | 2017-12-11 22:00 | NUR ---
Nursing Notes Patient resting in bed, awake. Patient denies any acute distress or pain at this time. IV site patent/clean/dry. Snacks given to patient per request. Patient refusing to wear arm sling at this time, educated patient regarding its importance, patient states he will wear it later. Needs addressed. Call light in hand, fall precautions in place.
--- NOTE | 2017-12-12 00:14 | NUR ---
Nursing Notes Patient resting in bed with eyes closed, easily aroused. Patient denies any acute distress or pain at this time. Breathing is even and unlabored. IV site patent/clean/dry. Dressings remain clean/dry/intact. Attempted to reapply sling to left arm, patient refusing at this time. Call light in hand, fall precautions in place. Will continue to monitor.
[2017-12-12 00:49] VITALS: BP_SYST 135
--- NOTE | 2017-12-12 02:00 | NUR ---
Nursing Notes Patient resting in bed, awake watching TV. Patient denies any acute distress. IV site patent/clean/dry. Left arm sling reapplied, patient tolerated well. Needs addressed. Call light in hand, fall precautions in place.
[2017-12-12] MEDS: HYDROcodone/ACETAMIN 5-325 MG TAB (NORCO/ VICODIN) PO PRN ×3 (02:11→19:49)
--- NOTE | 2017-12-12 04:00 | NUR ---
Nursing Notes Patient resting in bed, awake. Patient denies any acute distress, pain, or needs at this time. Breathing is even and unlabored. Dressings remain clean/dry/intact. Arm sling in use, neurovascular checks normal, patient tolerating well. Call light in hand, fall precautions in place.
--- NOTE | 2017-12-12 06:30 | NUR ---
Closing Notes Patient resting in bed with eyes closed, easily aroused. Patient denies any acute distress or pain at this time. Breathing is even and unlabored on room air. IV site patent/clean/dry, no S/S infection/infiltration noted. Dressings remain clean/dry/intact. Left arm sling in use, patient tolerating well. Needs addressed throughout shift. Call light in hand, fall precautions in place. Will continue to monitor for changes and safety, and endorse all patient care/needs to oncoming nurse.
[2017-12-12 08:00] VITALS: BP_SYST 130
--- NOTE | 2017-12-12 08:00 | NUR ---
Opening Note Report received from [facility] shift nurse. Patient is alert and oriented and resting in bed. Isolation precautions remain in place. Patient had debridement of several wounds yesterday by Dr. Acosta. IV is on the RAC 18g running D51/2NS@75. Left arm is currently on a sling. Placement to SNF is pending. Will continue to closely monitor.
[2017-12-12] MEDS: THIAMINE HCL 100 MG TABLET PO SCH (09:55)
[2017-12-12] MEDS: THEOPHYLLINE ANHYDROUS 200 MG CAP.ER.24H PO SCH (09:55)
[2017-12-12] MEDS: FLUCONAZOLE 200 mg/ NS 100 ML IV SCH (09:55)
[2017-12-12] MEDS: BALSAM PERU/CASTOR OIL 60 GM OINT...G. TP SCH (09:56)
[2017-12-12] MEDS: VANCOMYCIN HCL 750 MG in NS 250 ML IV SCH ×2 (09:56→22:51)
--- NOTE | 2017-12-12 10:08 | NUR ---
WOUND RE-EVALUATION: Late note for 1008 secondary to patient care. Patient received in a Keena Bed with an Isoflex HERNÁN mattress with low air loss therapy, awake, alert, and oriented. Patient is unable to turn in bed independently. Foreign Score is a 17. The patient apparently fell and sustained fracture to the left shoulder and stayed lying down on his left side until they found him on the floor. Intrinsic factors that delay wound healing: Alcohol dependency. Extrinsic factors that delay wound healing: Decreased mobility. Patient is status post surgical debridement by Dr. Acosta on 12/11/17. Skin assessment: Wound Assessment: 1. Left chest: Wound, apparently an ulceration from pressure (from lying on the floor for a prolonged period of time), present on admission. Sustained from fall at residence. Patient is status post surgical debridement on 12/11/17. No wound care orders received, therefore dressing not removed for assessment. Recommend: Reinforce dressing when necessary. Nursing staff to obtain new wound care orders from Dr. Acosta. 2. Right chest: Wound, apparently an ulceration from pressure (from lying on the floor for a prolonged period of time), present on admission. Dressing not removed for assessment. Recommend continue: Cleanse wound with normal saline. Pat dry. Apply moisture barrier cream to involved area. Apply Venelex ointment onto wound bed. Cover with foam dressing, then transparent dressing. Perform site care daily, as needed and as needed for dressing soiling or dislodgment. 3. Sacral area: Unstageable pressure ulcer, present on admission. Patient is status post surgical debridement on 12/11/17. No wound care orders received, therefore dressing not removed for assessment. Recommend: Reinforce dressing when necessary. Nursing staff to obtain new wound care orders from Dr. Acosta. 4. Left cheek: Wound, apparently an ulceration from pressure (from lying on the floor for a prolonged period of time), present on admission. Patient is status post surgical debridement on 12/11/17. No wound care orders received, therefore dressing not removed for assessment. Recommend: Reinforce dressing when necessary. Nursing staff to obtain new wound care orders from Dr. Acosta. 5. Left shoulder: Ecchymosis, apparently sustained from pressure (from lying on the floor for a prolonged period of time), present on admission. Recommend continue: No dressings needed. Continue to monitor site for worsening condition. Contact wound care is nurse if site opens, drains, or worsens. Also recommend continue: Reposition patient side to side only every 2 hours with pillow support, and off-load pressure areas with pillows for pressure re-distribution. Offload, elevate and float bilateral heels with one pillow lengthwise under each extremity at all times. Perform skin care and monitor skin integrity Q shift. Use moisture barrier cream on buttocks and other moisture susceptible areas QID and as needed for soiling. Maintain patient on a low air-loss mattress.
--- NOTE | 2017-12-12 10:20 | NUR ---
Rounds Patient ambulated with PT.
--- NOTE | 2017-12-12 10:45 | NUR ---
PHYSICAL THERAPY CO-SIGN The Physical Therapy Progress Notes documented by Self Pay Collector have been reviewed. I concur with the documentation of this AIRCRAFT ENGINE INSTALLER. Plan: continue with the plan of care if patient remains in this hospital as he continues to make some good and steady progress with PT services. Reviewed/Co-Signed by: Charlene Gandhi, PT Documentation Done by: Osman Ruiz, AIRCRAFT ENGINE INSTALLER Addendum: 12/12/17 at 1207 by Charlene Gandhi PT Amended: Links added.
[2017-12-12 12:00] VITALS: BP_SYST 138
--- NOTE | 2017-12-12 12:37 | NUR ---
Rounds Patient is resting in bed. Patient expressed concerns about not being able to pay his rent. Will consult with social sciences professor.
[2017-12-12] MEDS: CEFEPIME 1 GM in D5W 50 ML IV SCH (14:24)
[2017-12-12] MEDS: chlordiazePOXIDE HCL 25 MG CAPSULE PO PRN (14:30)
--- NOTE | 2017-12-12 14:38 | NUR ---
Rounds Patient is currently resting in bed. Call light is within reach and bed is in low position.
--- NOTE | 2017-12-12 14:58 | NUR ---
DC PLANNING Spoke w pt @ bedside to discuss dc planning, states lives alone & no family avail to assist him. States has a neighbor Jaylon who can probably help him, that has helped him in past. Would be agreeable w SNF if could go home for a day or 2 first. Informed that would not be able to go home first. States would prefer home w home health. Called to discuss dc planning w Dr Vazquez, states pt cannot dc home that needs to cont IV abx, wound care, & PT. Ordered LTAC eval. If unable to go to LTAC plan will be SNF. Called & informed Amara @ [facility] [phone], faxed facesheet as requested fax [phone].
[2017-12-12] MEDS: D5/0.45 NS 1,000 ML IV SCH ×2 (15:52→23:32)
[2017-12-12 16:00] VITALS: BP_SYST 118
--- NOTE | 2017-12-12 16:26 | NUR ---
IV RE-INSERTION: Complaining of leaking to IV site with mild rednessin right AC . Restarted on RIGHT HAND. Successful after 1 attempts. Resumed recurrent IV fluid, Will observe for any signs of infiltration.
--- NOTE | 2017-12-12 16:31 | NUR ---
Nutrition F/U Admitting Diagnosis Severe dehydration, ARF, fracture Reviewed Pertinent Medical/Surgical Hx Medical Record Patient Medical History Comment: PMH: ethanol dependency per MD notes Pt also found w/ severe dehydration, ARF, severe hypernatremia, sepsis, cellulitis of the chest wall and forehead, acute fracture of the L humeral bone, ethanol dependency per MD notes 12/06/17 MD Progress notes: encephalopathy, dysphagia. Subjective Information Pt is POD 1 s/p debridement of sacral ulcer, L and R chest ulcers, L cheek ulcer. Per EMR, plans for LTAC eval/transfer. Pt stated that he has been eating fine, but prefers finger-foods as his dominant hand is unable to manipulate foods. Pt noted w/ L humeral bone fracture. Pt agreeable to turkey or tuna sandwiches. RD notified FNS staff. Pt was interested in continuing Ensure Enlive and Fuad supplements. Pt is not yet meeting optimal nutritional needs. Current Diet Order/Nutrition Support Regular x0 days Patient/Significant Other Able To Verbalize Education Provided Not Indicated Pertinent Medications vancomycin/NaCl IV, D5%/NaCl IV, thiamine Pertinent Labs K 3.4 L, BG 105 H, ALB 2 L, WBC 15.3 H, H/H 11.3L/32.4 L, AST 61 H, ALP 171 H, Ca 8.7 WNL (improved) Height (Feet) 5 feet Height (Inches) 6.00 inches Weight (Pounds) 150 pounds (12/04/17) Weight (Calculated Kilograms) 68.266294 kilograms Patient Weight 68.039 kg Body Mass Index 24.21 kg/m2 %IBW 105 [place]/Adjusted Body Weight IBW: 142 lb, 65 kg Recent Weight Change Unable to verify Weight Status Appropriate Food Allergies No Last Bowel Movement 12/12/17 -- pt reported large, solid BM this afternoon Usual Diet At Home Regular Skin Integrity Comment: Foreign scale: 16; Per Maple Sugar Maker note 12/10/17: 1. Left chest: Wound, present on admission. Sustained from fall at residence. 2. Right chest: Wound, present on admission. Sustained from fall at residence.Sustained from fall at residence. 3. Sacral area: Unstageable pressure ulcer, present on admission. 4. Left cheek: Wound, present on admission. Sustained from fall at residence. Wound bed has 90% black slough eschar, 10% yellow tissue. No odor, no drainage. 5. Left shoulder: Ecchymosis, present on admission. Current % PO 58% average x6 meals Estimated Energy Expenditure (kcals/day) 3996-5901 kcal/day (30-35 kcal/kg CBW for sepsis, wound healing) Estimated Protein Required (g/day) 54-102 gm/day (0.8-1.2 gm/kg CBW for ARF, sepsis, wound healing) Estimated Fluid Required (l/day) Per MD (ARF) Problem/Etiology/Signs/Symptoms Suboptimal nutritional intakes likely r/t cognitive function associated w/ dehydration as evidenced by elevated Na, and renal function labs, as well as poor PO intake report. *improving Increased nutritional needs related to metabolic demands as evidenced by estimated nutritional requirements for sepsis and wound healing. *improving Expected Outcomes/Goals - Monitor appetite and PO intakes w/ goal of pt meeting at least 75% of estimated nutritional needs, labs trending WNL, normal GI function, and skin integrity/wt maintenance Dietitian Recommendations * Recommend regular diet w/ Ensure BID and Fuad BID. (oral supplements will provide additional ~800 kcal/day and ~45 gm protein/day) Follow Up Moderate Risk: F/U in 3-5 days
--- NOTE | 2017-12-12 16:42 | NUR ---
Dietitian Recommendations * Recommend regular diet w/ Ensure BID and Fuad BID. (oral supplements will provide additional ~800 kcal/day and ~45 gm protein/day) LP, RD Please refer to Nutrition F/U for details.
--- NOTE | 2017-12-12 16:47 | NUR ---
Rounds Dr. Vazquez rounded and spoke with the patient at the bedside. No change in orders.
[2017-12-12 19:00] VITALS: BP_SYST 135
--- NOTE | 2017-12-12 19:05 | NUR ---
change of shift.pt.present quiescent affect;calm.pt.presents fx:lt.shoulder;;ortho consulted. pt.presents general status stable.respiratory status stable.iv fluids infusing.call light/telephone table.urinal placed rt.side of bed:pt.able to access all the items:rom:lt.compromised.
--- NOTE | 2017-12-12 19:55 | NUR ---
pt.assessed.v/s assessed:values w/in normal limits.i inquired if the pt.presents requests;pain,nausea.pt.stated if he could receive medication pain:i have administered norco:5/325mg p1 tab po.i inquired if the 1 tablet was efficatious in controlling pain:lt.arm pt.stated if possible a stronger medication. was paged;re:pain medication mgx.i apprised the pt.that snacks are available w/in the shift.pt.presents no requests@this hour.general status stable.respiratory status stable. pt.capable to reposition self.call light/telephone palced w/in the pt's reach.
--- NOTE | 2017-12-12 19:57 | NUR ---
PAGE CALLED FOR DR. ALCANTAR. SPOKE TO BETZAIDA, DIALED [phone].
[2017-12-12 20:00] VITALS: BP_SYST 135
--- NOTE | 2017-12-12 21:00 | NUR ---
no 2100p medications pt.assessed.pt.presents quiescent affect calm.somnolent.
--- NOTE | 2017-12-12 22:00 | NUR ---
pt.assessed.i inquired if the pt.presents any requests pt.stated no he is fine.i inquired of the pain status/level. pt.stated pain is present/tolerable.i apprised the pt.that had ordered norco:5/325mg po q-4hrs;severe pain.pt.stated is necessary he would requests the increased dose.i inquired if the pt.presents additional requests pt. stated another blanket.i have provided the blanket.general status stable.respiratory status kendy.pt.capable to reposition self.iv fluids infusing.call light/telephone placed w/in the pt's reach.i have administered the vancomycin; abx;ivpb 2220p dose.
--- NOTE | 2017-12-13 00:06 | NUR ---
pt.assessed.v/s assessed.pt.presents quiescent affect;calm.somnolent.general status stable.respiratory status stable. iv fluids infusing.pt.capable to reposition self.call light/telephone placed w/in the pt's reach.
[2017-12-13] MEDS: DIPHENHYDRAMINE HCL 25 MG CAPSULE PO PRN (00:49)
[2017-12-13] MEDS: HYDROcodone/ACETAMIN 5-325 MG TAB (NORCO/ VICODIN) PO PRN ×4 (00:52→20:23)
--- NOTE | 2017-12-13 00:52 | NUR ---
pt.had requested medication;pain.i have administered norco;5/325mg 2 tablets.po.i inquired if the pt.presents additional requests pt.stated ice water.i have provided the liner of fresh ice water.no additional requests.to f/u re;pain medication efficacy per pain mgx protocol.
[2017-12-13 01:00] VITALS: BP_SYST 124
--- NOTE | 2017-12-13 02:00 | NUR ---
pt.assessed.pt.presents quiescent affect;calm,somnolent.general status stable.respiratory status stable. pt.capable to reposition self.iv fluids infusing.julieta light/telephone w/in the pt's reach.
--- NOTE | 2017-12-13 04:15 | NUR ---
pt.assessed.i have attended to the pt's wound care:lt.cheek/face.i have re-established iv access:lt.hand;#24g. i have provided clean sheets,gown,socks. general status stable.respiratory status stable.pt.capable to repositions self.call light/telephone placed w/in the pt's reach.
[2017-12-13] MEDS: chlordiazePOXIDE HCL 25 MG CAPSULE PO PRN (05:09)
--- NOTE | 2017-12-13 05:15 | NUR ---
pt.has requested medication pain,anxiety.i have administered norco:5/325mg po 2 tablets.anxiety:ativan or librium:pt.stated he prefers librium.i have administered librium:25mg po.no additional requests.i have attended to the urinal:emptied/cleaned.call light/telephone placed w/in the pt's reach:rt.side of the bed.
--- NOTE | 2017-12-13 06:05 | NUR ---
pt.assessed.pt.presents quiescent affect;calm,somnolent.general status stable.respiratory status stable. iv fluids infusing.call light/telephone win the pt's reach:rt.side of the bed.
[2017-12-13 06:35] LABS: CREATININE 0.96 mg/dL (0.55-1.30); POTASSIUM 3.4 mmol/L (3.5-5.1); TOTAL BILIRUBIN 0.9 mg/dL (0.0-1.0)
[2017-12-13 08:00] VITALS: BP_SYST 132
--- NOTE | 2017-12-13 08:00 | NUR ---
Opening Note report received from night auditor RN, pt resting in bed, A&Ox4, respirations even and unlabored on room air, IV site clean, dry, intact, and infusing well, no redness or swelling noted at IV site, dressing to left face, sacrum, and chest clean, dry, and intact, SCDs in place, pt educated on use of call light and asked to call for assistance, pt verbalized understanding, call light in reach, bed in low position, bed alarm on, fall, aspiration, and isolation precautions in place.
--- NOTE | 2017-12-13 09:50 | NUR ---
MD Rounds Dr. Olivares at bedside speaking with pt, orders to D/C IV fluids, IV fluids D/C at this time.
[2017-12-13] MEDS: FLUCONAZOLE 200 mg/ NS 100 ML IV SCH (09:57)
[2017-12-13] MEDS: THIAMINE HCL 100 MG TABLET PO SCH (09:57)
[2017-12-13] MEDS: THEOPHYLLINE ANHYDROUS 200 MG CAP.ER.24H PO SCH (09:58)
[2017-12-13] MEDS: BALSAM PERU/CASTOR OIL 60 GM OINT...G. TP SCH (09:59)
--- NOTE | 2017-12-13 10:00 | NUR ---
Notes linen changed, pt able to reposition self, pt reports that pain is controlled at this time, fall, aspiration, and isolation precautions in place.
--- NOTE | 2017-12-13 10:10 | NUR ---
Medication pt educated on medication use and side effects, pt verbalized understanding, tolerated medication administration well, no additional needs at this time, fall, aspiration, and isolation precautions in place.
--- NOTE | 2017-12-13 10:50 | NUR ---
Medication/Called pharmacy verified vancomycin level of 14.8 with pharmacist, per pharmacist okay to give vancomycin, pt eduacted on medication use and side effects, pt verbalized understanding, tolerating medication administration well, no redness or swelling noted at IV site, fall and aspiration precautions in place.
[2017-12-13] MEDS: VANCOMYCIN HCL 750 MG in NS 250 ML IV SCH ×2 (10:55→22:57)
[2017-12-13 11:13] VITALS: BP_SYST 103
--- NOTE | 2017-12-13 12:15 | NUR ---
RN Rounds pt resting in bed, A&Ox4, respirations even and unlabored on room air, pain controlled at this time, fall, isolation, and aspiration precautions in place.
[2017-12-13] MEDS: CEFEPIME 1 GM in D5W 50 ML IV SCH (13:45)
--- NOTE | 2017-12-13 13:50 | NUR ---
Medication pt educated on medication use and side effects, pt verbalized understanding, no redness or swelling noted at IV site, pt tolerating medication administration well, fall, aspiration, and isolation precautions in place.
--- NOTE | 2017-12-13 14:33 | NUR ---
Pain Management/Medication pt complaint of pain 9/10 to left shoulder, pt educated on use and side effects of PRN pain medications, pt verbalized understanding, tolerated medication administration well, fall and aspiration precautions in place.
--- NOTE | 2017-12-13 15:23 | NUR ---
PHYSICAL THERAPY CO-SIGN The Physical Therapy Progress Notes documented by Underwear Welter have been reviewed. I CONCUR W/TECHNICAL BUSINESS ANALYST NOTE; CONT PER TX PLAN Reviewed/Co-Signed by: Barby Guerrero PT Documentation Done by: JEISON JUNE PTA Addendum: 12/13/17 at 1524 by Barby Guerrero PT Amended: Links added.
[2017-12-13 16:00] VITALS: BP_SYST 133
--- NOTE | 2017-12-13 16:10 | NUR ---
RN Rounds pt sleeping in bed, easily arousable to name, pt denies any pain at this time, no acute distress noted, fall, aspiration, and isolation precautions in place.
--- NOTE | 2017-12-13 17:00 | NUR ---
Wound Care per Dr. Dave negrete for RN to start dressing change today, wound care provided per Dr. Acosta orders, cleanse with NS, apply venelex ointment, cover with foam dressing, dressing change to sacrum, chest, and left face completed, pt tolerated well, no additional needs at this time, fall, aspiration, and isolation precautions in place.
--- NOTE | 2017-12-13 18:08 | NUR ---
RN Rounds pt requesting assistance to cut up dinner, pt assisted, pt eating dinner in bed, no additional needs at this time, pt states that pain is controlled, fall, isolation, and aspiration precautions in place.
--- NOTE | 2017-12-13 18:52 | NUR ---
Closing Note pt resting in bed, A&Ox4, respirations even and unlabored on room air, pt reports pain controlled at this time, IV site clean, dry, and intact, wound dressings, clean, dry, and intact, dressing changes completed today, SCDs in place, no acute distress noted, pt educated on use of call light and asked to call for assistance, pt verbalized understanding, call light in reach, bed in low position, bed alarm on, fall, aspiration, and isolation precautions in place, will endorse care to shift mgr RN.
[2017-12-13 20:00] VITALS: BP_SYST 135
--- NOTE | 2017-12-13 20:00 | NUR ---
OPENING NOTE Late entry due to patient care. Patient and report was received from day shift nurse. Patient is AAO x 4 and resting in bed. Aware of plan of care. Safety and fall precautions were discussed; verbalized understanding. Bed alarm on. Urinal at bedside. Call light to right hand. Will continue to monitor.
[2017-12-13 20:25] VITALS: BP_SYST 130
--- NOTE | 2017-12-13 20:30 | NUR ---
PRN PAIN MEDICATION Patient was given PRN pain medication for c/o severe pain by LYUDMILA Corcoran. See EMAR for details.
[2017-12-13] MEDS: MUPIROCIN 2% TOPICAL OINTMENT 22 GM NS SCH (22:57)
--- NOTE | 2017-12-13 22:57 | NUR ---
DUE MEDS Late entry due to patient care. Due meds administered as ordered. Educated pt. regarding medication and potential side effects. Verbalized understanding. Knowledgeable about plan of care and is able to verbalize DCP. Will continue to monitor.
[2017-12-14 01:00] VITALS: BP_SYST 136
[2017-12-14] MEDS: HYDROcodone/ACETAMIN 5-325 MG TAB (NORCO/ VICODIN) PO PRN ×5 (01:10→21:14)
--- NOTE | 2017-12-14 01:10 | NUR ---
PRN PAIN MEDICATION GIVEN Patient is awake with c/o severe pain; PRN pain medication was administered as ordered by LYUDMILA Rios. See EMAR for details.
--- NOTE | 2017-12-14 03:00 | NUR ---
ICE CHIPS GIVEN Ice chips was given to patient as requested.
--- NOTE | 2017-12-14 06:50 | NUR ---
CLOSING NOTES All needs met throughout shift. No significant changes from initial assessment. Safety and fall precautions maintained. Will endorse care to oncoming day shift nurse.
--- NOTE | 2017-12-14 07:20 | NUR ---
OPENING NOTE PT IN BED AWAKE ALERT. PT REORIENTED TO CALL LIGHT USE, VISIBLY WITHIN REACH. BED ALARM IN PLACE WITH BED IN THE LOWEST POSITION. WILL MONITOR
[2017-12-14 08:00] VITALS: BP_SYST 130
--- NOTE | 2017-12-14 09:26 | NUR ---
DISCHARGE PLANNING - LTAC TRANSFER Received call from Chaz Jules, Patient News Agent for [facility], ph: [phone]. He stated pt's clinicals has been submitted for review. Also since pt is homeless, [facility] ([facility]) has to start the "Unrepresented Process" that most likely involve the [facility]'s Ethics Committee since pt's hx is homelessness and 3x re-admissions d/t effects of ETOH. He will notify Ramón, site damage prevention technician for [facility] the [facility] Liaison, for the week [facility] is off work. He will contact Irrigation Flume Layer LYUDMILA Murillo.
--- NOTE | 2017-12-14 09:36 | NUR ---
PAGED PAGED WILVER SNOW AT [phone]PUNIAK SPEAR MICHAEL REST ROOM ATTENDANT.
[2017-12-14] MEDS: VANCOMYCIN HCL 750 MG in NS 250 ML IV SCH ×2 (09:46→21:14)
[2017-12-14] MEDS: THIAMINE HCL 100 MG TABLET PO SCH (09:46)
[2017-12-14] MEDS: FLUCONAZOLE 100 MG TABLET (DIFLUCAN) PO SCH (09:46)
[2017-12-14] MEDS: THEOPHYLLINE ANHYDROUS 200 MG CAP.ER.24H PO SCH (09:47)
[2017-12-14] MEDS: MUPIROCIN 2% TOPICAL OINTMENT 22 GM NS SCH ×2 (09:47→21:14)
--- NOTE | 2017-12-14 09:47 | NUR ---
AM MEDS MORNING MEDS GIVEN BY RESOURCE NURSE. SAFETY MAINTAINED.
[2017-12-14 12:00] VITALS: BP_SYST 127
--- NOTE | 2017-12-14 12:00 | NUR ---
PATIENT RESTING: Patient resting quietly. No acute distress noted. Vital signs within normal range.
[2017-12-14] MEDS: chlordiazePOXIDE HCL 25 MG CAPSULE PO PRN (14:36)
--- NOTE | 2017-12-14 14:36 | NUR ---
MED PASS LIBRIUM NORCO GIVEN FOR 02/11 SHOULDER/BACK PAIN
[2017-12-14] MEDS: CEFEPIME 1 GM in D5W 50 ML IV SCH (15:17)
[2017-12-14] MEDS: BALSAM PERU/CASTOR OIL 60 GM OINT...G. TP SCH (15:18)
--- NOTE | 2017-12-14 15:20 | NUR ---
MED PASS/ WOUND CARE IVPB ANTIBIOTIC HUNG AT THIS TIME. WOUND CARE DONE PER WOUND CARE ORDERS. SAFETY MAINTAINED.
[2017-12-14 16:00] VITALS: BP_SYST 137
--- NOTE | 2017-12-14 19:17 | NUR ---
CLOSING NOTE ALL NEED MET THROUGH SHIFT, SAFETY MAINTAINED Addendum: 12/14/17 at 1918 by Falguni Ballard RN CARE ENDORSED TO TRAINING EXECUTIVE
--- NOTE | 2017-12-14 19:30 | NUR ---
OPENING NOTE/PAIN MED GIVEN Patient and report was received from day shift nurse. Patient is AAO x 4 and resting in bed. Complaining of left shoulder "9/10" pain; Nipomo 2 tabs was administered as ordered PRN for severe pain. Educated pt. regarding medication and potential side effects. Aware of plan of care. Safety and fall precautions were discussed; verbalized understanding. Bed alarm on. Urinal at bedside. Window blinds were closed as requested. Call light to right hand. Will continue to monitor.
[2017-12-14 20:04] VITALS: BP_SYST 137
[2017-12-14] MEDS: DIPHENHYDRAMINE HCL 25 MG CAPSULE PO PRN (21:13)
--- NOTE | 2017-12-14 21:13 | NUR ---
PAIN AND ITCHING Patient c/o continued pain to left shoulder and "itching all over" and was given PRN medications as ordered. See EMAR. Educated pt. regarding medication and potential side effects. Side effects sheet at bedside was utilized. Will continue to monitor.
--- NOTE | 2017-12-14 22:15 | NUR ---
REFUSED TO SWITCH ROOMS Patient initially agreed to move rooms closer to the nurses station and was educated regarding safety but then appeared to be irritated and raised his voice to say "you know what I've been moved so many times I just want to get some sleep! Everyone keeps waking me up" and then requested for us to "leave [him] alone" so that he can rest. Will continue to encourage.
--- NOTE | 2017-12-15 00:30 | NUR ---
SLING/SHOULDER IMMOBILIZER WAS FIXED Patient was "messing with" his left shoulder sling and requested for nurse to adjust.
[2017-12-15 01:50] VITALS: BP_SYST 128
--- NOTE | 2017-12-15 01:52 | NUR ---
PLUG MAKING OPERATOR AT BEDSIDE BO TorresA at bedside providing skin care. No other needs at this time stated by patient.
--- NOTE | 2017-12-15 02:13 | NUR ---
ICE CHIPS Pitcher of ice chips were given as requested by pt.
--- NOTE | 2017-12-15 04:54 | NUR ---
SLEEPING Pt. appears to be sleeping. No distress. Visible chest rise and fall. Safety and fall precautions are in place. Call light to right hand. Will monitor.
[2017-12-15] MEDS: HYDROcodone/ACETAMIN 5-325 MG TAB (NORCO/ VICODIN) PO PRN ×3 (06:30→20:05)
[2017-12-15] MEDS: DIPHENHYDRAMINE HCL 25 MG CAPSULE PO PRN (06:30)
--- NOTE | 2017-12-15 07:33 | NUR ---
CLOSING NOTES All needs met throughout shift. No significant changes from initial assessment. Safety and fall precautions maintained. Bedside report and care wad endorsed to day shift nurse.
[2017-12-15 08:00] VITALS: BP_SYST 128
--- NOTE | 2017-12-15 08:00 | NUR ---
Patient reports sleepiness. States he wants librium. Advised will give librium at 0900 with AM medications. Patient reports good appetite, states he still has mild pain and wants a stronger medication more often. MD notified, orders to remain the same.
[2017-12-15] MEDS: THIAMINE HCL 100 MG TABLET PO SCH (09:08)
[2017-12-15] MEDS: MUPIROCIN 2% TOPICAL OINTMENT 22 GM NS SCH ×2 (09:08→20:09)
[2017-12-15] MEDS: FLUCONAZOLE 100 MG TABLET (DIFLUCAN) PO SCH (09:08)
[2017-12-15] MEDS: BALSAM PERU/CASTOR OIL 60 GM OINT...G. TP SCH (09:09)
[2017-12-15] MEDS: chlordiazePOXIDE HCL 25 MG CAPSULE PO PRN (09:14)
[2017-12-15] MEDS: THEOPHYLLINE ANHYDROUS 200 MG CAP.ER.24H PO SCH (09:32)
--- NOTE | 2017-12-15 11:10 | NUR ---
PHYSICAL THERAPY CO-SIGN The Physical Therapy Progress Notes documented by Carpenter Helper Hardwood Flooring have been reviewed. I CONCUR W/BIZTALK ARCHITECT NOTE; CONT WITH GAIT/BALANCE TRG TO PROMOTE SAFE GAIT WITH ASSISTIVE DEVICE Reviewed/Co-Signed by: Barby Guerrero PT Documentation Done by: ZI TIERNEY, BIZTALK ARCHITECT
--- NOTE | 2017-12-15 11:13 | NUR ---
PT WEEKLY SUMMARY Pt IS SHOWING IMPROVEMENT WITH POC, CONT TO DEMO UNSTEADY GAIT USING HW; WILL BENEFIT TO CONT W/CURRENT POC FOR GAIT/BALANCE TRAINING AND PROMOTE SAFE GAIT USING HW; ONCE DAILY 5X/WK X1 WEEK; STORE PERSON UPDATED. Addendum: 12/15/17 at 1115 by Barby Guerrero PT Amended: Links added.
--- NOTE | 2017-12-15 12:14 | NUR ---
DC PLANNING Called & spoke alondra Krishnan, ph [phone], states case still being reviewed will call me back later today. Addendum: 12/15/17 at 1514 by Radha Cline RN Received msg from Frank vaz accepted @ [facility] working on auth from insurance. Addendum: 12/15/17 at 1533 by Radha Cline RN Spoke w pt @ bedside & updated accepted @ [facility] waiting on auth from insurance, states amber Krishnan.
[2017-12-15 12:36] VITALS: BP_SYST 128
[2017-12-15] MEDS: CEFEPIME 1 GM in D5W 50 ML IV SCH (13:43)
--- NOTE | 2017-12-15 13:48 | NUR ---
PATIENT SLEEPING UPON ENTRY TO ROOM. REPORTS LEFT SHOULDER PAIN AND IS REQUESTING PAIN MEDICATION. ALL WOUNDS DRESSED PER ORDERS. PATIENT TOLERATED WELL, DENIES WOUND PAIN.
[2017-12-15 16:10] VITALS: BP_SYST 142
[2017-12-15 19:00] VITALS: BP_SYST 119
--- NOTE | 2017-12-15 19:15 | NUR ---
change of shift.pt.presents quiescent affect;calm,viewing tv programming.general status stable.respiratory status stable@room air.pt.presents sling/immobilizer lt.arm.i have inquired if the pt.presents pain/nausea.pt.stated pain.i am to review the emar. call light/telephone w/in the pt's reach.i have attended nelia the urinal emptied/cleaned.
[2017-12-15 20:00] VITALS: BP_SYST 119
--- NOTE | 2017-12-15 20:10 | NUR ---
pt.assessed.v/s assessed,values w/in normal limits.pt.has requested medication;pain.i have administered norco:10/325mg po x1=2 tabs barbaraal bs.i have attended to the urinal;emptied/cleaned.i inquired if the pt.presents requests pt.stated ice water.i have provioed the ice-water.general status stable.respiratory status stable.call light/telephone placed w/in the pt's reach./
--- NOTE | 2017-12-15 21:00 | NUR ---
2100p medication administered;bactroban;nares bilateral.pt.has requested ice water. i have provided the ice water. no additional requests.
[2017-12-15] MEDS: VANCOMYCIN HCL 750 MG in NS 250 ML IV SCH (22:00)
--- NOTE | 2017-12-15 22:15 | NUR ---
pt.assessed.pt.presents quiescent affect to the urinal;emptied/cleaned.pt.has requested ice water.i have provided the ice water.pt.requests the blankets be re-applied.i have re-applied the blankets upon the pt.general status stable.respiratory status stable.call light/telephone w/in the pt's reach. Addendum: 12/16/17 at 0448 by Vicente Lawrence RN pt.capable to reposition self.
--- NOTE | 2017-12-16 | NUR ---
pt.assessed.v/s assessed.values w/in normal limits.i have attended to the urinal;emptied/cleaned.i inquired if the pt. presents requests;pt.stated ice water.i have provided the ice water.pt.requiered the placement of the blankets. no additional requests.pt.capable to reposition self.call light/telephone w/in the pt's reach.
[2017-12-16 01:30] VITALS: BP_SYST 109
[2017-12-16] MEDS: HYDROcodone/ACETAMIN 5-325 MG TAB (NORCO/ VICODIN) PO PRN ×4 (02:09→23:41)
--- NOTE | 2017-12-16 02:10 | NUR ---
pt.assessed.pt.had requested medication;pain,.i have administered norco;10/325mg po 2 tabs./to f/u re;pain efficacy per pain medication mgx.i have attended to the urinal;emptied/cleaned.i have applied the blankets upon the pt.no additional requests. pt.capable to reposition self.call light/telephone w/in the pt's reach.
--- NOTE | 2017-12-16 04:14 | NUR ---
pt.assessed.pt.presents quiescent affect;calm,somnolent.pt.capable to reposition self.i have attended to the urinal;emptied/cleaned.call light/telephone w/in the pt's reach.
--- NOTE | 2017-12-16 06:26 | NUR ---
pt.assessed.pt.presents quiescent affect;calm.viewing tv programing.no c/o pain,nausea.pt.had requested coffee i have provided the coffee.i have attended to the wound dsg changes.general status stable.respiratory status stable.pt.capable to reposition self. call light/telephone placed w/in the pt's reach.
[2017-12-16 07:50] VITALS: BP_SYST 135
--- NOTE | 2017-12-16 07:56 | NUR ---
OPENING NOTES, RECEIVED PT IN BED, PT IS AAOX4, DENIES PAIN, NO SOB, NO RESP DISTRESS. VITALS WNL. AFEBRILE. NOTED LEFT FACE DRESSING AND CHEST DRSSING. ALL ARE INTACT. SL ON LEF HAND #24, INTACT AND PATENT, NO S/S OF INFILTRATION. SAFETY PRECAUTION IN PLACE. BED ALARM ON. CALL LIGHT IN REACH. ENCOURAGED TO CALL FOR ASSIST AND PAIN MEDS AND ANY CONCERNS. WILL CONT TO MONITOR.
[2017-12-16] MEDS: FLUCONAZOLE 100 MG TABLET (DIFLUCAN) PO SCH (08:21)
[2017-12-16] MEDS: THIAMINE HCL 100 MG TABLET PO SCH (08:21)
[2017-12-16] MEDS: THEOPHYLLINE ANHYDROUS 200 MG CAP.ER.24H PO SCH (08:21)
[2017-12-16] MEDS: MUPIROCIN 2% TOPICAL OINTMENT 22 GM NS SCH ×2 (08:21→23:41)
[2017-12-16] MEDS: BALSAM PERU/CASTOR OIL 60 GM OINT...G. TP SCH (08:24)
--- NOTE | 2017-12-16 10:00 | NUR ---
PT IN BED, NO C/O PAIN, NO SOB, NO RESP DISTRESS. PT ANXIOUS ABOUT DC OR TRANSFER TO [facility]. STILL WAITING FOR AUTHORIZATION FROM INSURANCE. PT UPDATED. SAFETY ALARM ON , CALL LIGHT IN REACH. BED IN LOWEST POSITION. WILL CONT TO MONITOR.
--- NOTE | 2017-12-16 10:13 | NUR ---
DC PLANNING Called & spoke w Frank Krishnan, ph [phone], to f/u on auth. Per Frank auth has been initiated still waiting for auth. I called William, ph [phone] per BAR notes, to assist in auth, states to call CM dept ph [phone]. Called & left msg for assigned CM to return call that need auth for LTAC, waiting for call back from CM @ [facility] or Frank. Addendum: 12/16/17 at 1310 by Radha Cline RN Received msg from , did not leave name, received msg. States that inpt auth currently in review by clinician, going to email them request so can expedite LTAC auth. Addendum: 12/16/17 at 1636 by Radha Cline RN Received call from Quan @ [employer], ph [phone], updated on pt status states will return call w decision. Called Quan back & states that pt auth'd for LTAC, [facility]([place]). States that can use any ambulance that accepts that do not need auth for non-active & pt is retired. Called & left msg w Frank @ [facility], ph [phone], that auth given, informed to call floor w room assignment CM leaving for the day @ 1630. Also left him direct # for Quan @ . Updated pt @ bedside, agreeable w transfer to [facility], aware waiting for call from [facility]. Updated Pt's nurse Silvano & Charge nurse Allison. Addendum: 12/16/17 at 1644 by Radha Cline RN [facility] ambulance placed on will-call, ph [phone].
[2017-12-16] MEDS: chlordiazePOXIDE HCL 25 MG CAPSULE PO PRN (10:28)
[2017-12-16] MEDS: VANCOMYCIN HCL 750 MG in NS 250 ML IV SCH ×2 (10:29→22:00)
--- NOTE | 2017-12-16 10:54 | NUR ---
PT GIVEN PAIN MED FOR PAIN OF 8-9/10 ON LEFT SHOULDER AND LOWER BACK. WILL CONT TO MONITOR.
[2017-12-16 11:11] VITALS: BP_SYST 120
--- NOTE | 2017-12-16 11:45 | NUR ---
PHYSICAL THERAPY CO-SIGN The Physical Therapy Progress Notes documented by Rehabilitator have been reviewed. I concur with the documentation of this NEW BUSINESS CLERK. Plan: continue as per plan of care as he continues to make some slow but good and steady progress with PT services. Reviewed/Co-Signed by: Charlene Gandhi,PT Documentation Done by: Osman Ruiz, NEW BUSINESS CLERK Addendum: 12/16/17 at 1320 by Charlene Gandhi PT Amended: Links added.
[2017-12-16] MEDS: CEFEPIME 1 GM in D5W 50 ML IV SCH (12:42)
[2017-12-16 15:36] VITALS: BP_SYST 121
--- NOTE | 2017-12-16 15:53 | NUR ---
WOUND RE-EVALUATION: Patient received in a Keena Bed with an Isoflex HERNÁN mattress with low air loss therapy, awake, alert, and oriented. Patient is unable to turn in bed independently. Foreign Score is a 17. The patient apparently fell and sustained fracture to the left shoulder and stayed lying down on his left side until they found him on the floor. Intrinsic factors that delay wound healing: Alcohol dependency. Extrinsic factors that delay wound healing: Decreased mobility. Patient is status post surgical debridement by Dr. Acosta on 12/11/17. Wound Assessment: 1. Left chest: Wound, an ulceration from pressure (from lying on the floor for a prolonged period of time), present on admission. Sustained from fall at residence. Patient is status post surgical debridement on 12/11/17. Wound care performed by material handler 2nd shift nurse this morning. Dressing not removed for assessment secondary to doing so would decrease wound temperature and retard wound healing rate. New wound care orders were received from Dr. Acosta. Recommend Cleanse wounds with normal saline. Pat dry. Apply moisture barrier cream to involved areas. Apply Venelex ointment onto wound beds. Cover with foam dressing, then transparent dressing. Perform site care daily, as needed and as needed for dressing soiling or dislodgment. 2. Right chest: Wound, apparently an ulceration from pressure (from lying on the floor for a prolonged period of time), present on admission. Recommend: Cleanse wound with normal saline. Pat dry. Apply moisture barrier cream to involved area. Apply Venelex ointment onto wound bed. Cover with foam dressing, then transparent dressing. Perform site care daily, as needed and as needed for dressing soiling or dislodgment. 3. Sacral area: Unstageable pressure ulcer, present on admission. Wound care performed by material handler 2nd shift nurse this morning. Dressing not removed for assessment secondary to doing so would decrease wound temperature and retard wound healing rate. Recommend: Cleanse wounds with normal saline. Pat dry. Apply moisture barrier cream to involved areas. Apply Venelex ointment onto wound beds. Cover with foam dressing, then transparent dressing. Perform site care daily, as needed and as needed for dressing soiling or dislodgment. 4. Left cheek: Wound, present on admission. Sustained from fall at residence. Wound care performed by material handler 2nd shift nurse this morning. Dressing not removed for assessment secondary to doing so would decrease wound temperature and retard wound healing rate. New wound care orders were received from Dr. Acosta. Recommend Cleanse wounds with normal saline. Pat dry. Apply moisture barrier cream to involved areas. Apply Venelex ointment onto wound beds. Cover with foam dressing, then transparent dressing. Perform site care daily, as needed and as needed for dressing soiling or dislodgment. 5. Left shoulder: Ecchymosis, sustained from pressure (from lying on the floor for a prolonged period of time), present on admission. Recommend continue: No dressings needed. Continue to monitor site for worsening condition. Contact wound care is nurse if site opens, drains, or worsens. Also recommend continue: Reposition patient side to side only every 2 hours with pillow support, and off-load pressure areas with pillows for pressure re-distribution. Offload, elevate and float bilateral heels with one pillow lengthwise under each extremity at all times. Perform skin care and monitor skin integrity Q shift. Use moisture barrier cream on buttocks and other moisture susceptible areas QID and as needed for soiling. Maintain patient on a low air-loss mattress.
--- NOTE | 2017-12-16 16:27 | NUR ---
PER ART SPECIALIST, WE ARE WAITING CALL FOR BED AVAILABILITY FROM [facility]. THEN WE WILL NEED DCORDER FROM DR HOWELL.
--- NOTE | 2017-12-16 19:46 | NUR ---
CLOSING NOTES PT HAS REMAINED STABLE. GIVEN PAIN MEDICATION REQUESTED FOR PAIN. PT TURNED AND REPOSITIONED. L SHOULDER SLING KEPT ON. STILL WAITING FOR CALL BACK FROM [place] FOR ROOM AVAILABILITY. DC PACKET ENDORSED TO NIGHT LYUDMILA WREN.
[2017-12-16 21:00] VITALS: BP_SYST 123
--- NOTE | 2017-12-16 22:25 | NUR ---
NORCO TABLETS PO GIVEN FOR GENERAL PAIN COMFORT MEASURES IMPLEMENTED & HELPFUL .
[2017-12-16] MEDS ORDERED: VANCOMYCIN HCL 1000 MG/VIAL IV ONE (23:45)
--- NOTE | 2017-12-17 | NUR ---
VANCOMYCIN 750 MG IVPB administer late d/t missing dose , Replacement obtained from Hussain Ariza RN .
[2017-12-17 00:20] VITALS: BP_SYST 126
--- NOTE | 2017-12-17 01:31 | NUR ---
Reposition & Turning patient on two hour schedule , off loading with pillows comfort measures implemented patient awake alert also tolerating schedule / .
--- NOTE | 2017-12-17 01:38 | NUR ---
LT[facility] D/C [facility]AN [facility] AVAILABLE BED IS PENDING , PATIENT AWARE .
[2017-12-17] MEDS: chlordiazePOXIDE HCL 25 MG CAPSULE PO PRN (04:55)
[2017-12-17] MEDS: HYDROcodone/ACETAMIN 5-325 MG TAB (NORCO/ VICODIN) PO PRN (04:56)
--- NOTE | 2017-12-17 06:22 | NUR ---
LIBRIUM 25 MG PO GIVEN ORDERED PER PATIENT REQUEST FOR ANXIETY & HELPFUL .
--- NOTE | 2017-12-17 07:40 | NUR ---
INITIAL NOTES RECEIVED PATIENT FROM TOLL LINE REPAIRER. PATIENT IS AWAKE IN BED. PATIENT REQUESTED TO SPEAK TO SCHOOL PSYCHOLOGIST ASSISTANT LATER TODAY REGARDING TRANSFER; VM LEFT FOR CM AND WILL FOLLOW UP. A/Ox4. NO ACUTE DISTRESS. NO SOB. RESPIRATION EVEN AND UNLABORED. SKIN WARM AND DRY TO TOUCH. IV INTACT AND PATENT. BED IN LOW AND LOCKED POSITION. SIDERAIL UP X3. BED ALARM ON. ORIENTED PATIENT TO CALL LIGHT AND TO USE FOR ASSIST; PT VERBALIZED UNDERSTANDING. CONT SAFETY/FALL/CONTACT PRECAUTIONS. ALL NEEDS MET. CONT TO MONITOR.
[2017-12-17] MEDS: FLUCONAZOLE 100 MG TABLET (DIFLUCAN) PO SCH (08:24)
[2017-12-17] MEDS: MUPIROCIN 2% TOPICAL OINTMENT 22 GM NS SCH (08:24)
[2017-12-17] MEDS: THIAMINE HCL 100 MG TABLET PO SCH (08:24)
[2017-12-17] MEDS: THEOPHYLLINE ANHYDROUS 200 MG CAP.ER.24H PO SCH (08:25)
[2017-12-17] MEDS: BALSAM PERU/CASTOR OIL 60 GM OINT...G. TP SCH (08:25)
--- NOTE | 2017-12-17 10:00 | NUR ---
NOTES PATIENT REFUSED VANCO AT THIS TIME. PATIENT STATED HE WANTS TO SEE RN TRANSFER FIRST BEFORE GETTING ANTIBIOTIC. BRAYAN RN TRANSFER AT NURSES STATION; INFORMED BRAYAN PATIENT WOULD LIKE TO SEE A RN TRANSFER. BRAYAN WILL INFORM DESIRET; PATIENTS RN TRANSFER.
--- NOTE | 2017-12-17 11:00 | NUR ---
NOTES ASSISTED PATIENT TO BATHROOM; PATIENT NOTED WITH SLOW GAIT. ASSISTED PATIENT BACK TO BED. ALL NEEDS MET. CONT TO MONITOR. CALL LIGHT IN REACH. CONT TO MONITOR.
[2017-12-17 11:17] VITALS: BP_SYST 121
--- NOTE | 2017-12-17 11:36 | NUR ---
DC planning: S/W pt at bedside--he is anxious and wants to be transferred to [facility]--I rec'd transfer order from Dr. Vazquez, nurse Jessica cunha and I called Amara at [phone] for med/surg bed.RACHEL COREAS
--- NOTE | 2017-12-17 12:00 | NUR ---
BRASS SORTER KESHA BRASS SORTER STATED SHE WAS NOT ABLE TO LEAVE THE OFFICE EARLIER. SHE WILL COME SEE THE PATIENT SOON. MADE PATIENT AWARE.
--- NOTE | 2017-12-17 12:18 | NUR ---
dc PLANNING: Pema from [facility] gave bed#315A for [facility] after 7pm and she is aware pt is MRSA positive nares--[facility] called for picking tech at 1830 BLS--s/w Heather (male)--I called back [facility] and let them know pt is MRSA positive nares--nurse Jessica made aware and pt made aware of transfer time and is agreeable to this plan. RACHEL COREAS
[2017-12-17] MEDS: VANCOMYCIN HCL 750 MG in NS 250 ML IV SCH (12:23)
--- NOTE | 2017-12-17 12:38 | NUR ---
Discharge Planning: Wind Energy Project Manager received call from Amara at [facility] who stated that [facility] would like pt to come sooner that 1830. [facility] has contacted [facility] ([phone]) and arranged the ambulance molded goods spot picker for 1500. [facility] has alerted pt's nurse of ambulance time change. Pt will be going to: [facility] gave bed#315A for [place].
--- NOTE | 2017-12-17 13:00 | NUR ---
WOUND CARE WOUND CARE PROVIDED, SONY WELL. DENIES ANY PAIN. ALL NEEDS MET. CONT TO MONITOR. CALL LIGHT IN REACH.
--- NOTE | 2017-12-17 14:07 | NUR ---
REPORT CALLED [facility], , REPORT GIVEN TO JI COREAS PATIENT TO BE GOING TO ROOM 315A P/U AT 1500 BY [facility] PATIENT AWARE
[2017-12-17 14:12] VITALS: BP_SYST 134
--- NOTE | 2017-12-17 14:40 | NUR ---
Nutrition F/U Admitting Diagnosis Severe dehydration, ARF, fracture Reviewed Pertinent Medical/Surgical Hx Medical Record Patient Primary RN Medical History Comment: PMH: ethanol dependency per MD notes Pt also found w/ severe dehydration, ARF, severe hypernatremia, sepsis, cellulitis of the chest wall and forehead, acute fracture of the L humeral bone, ethanol dependency per MD notes 12/06/17 MD Progress notes: encephalopathy, dysphagia. Subjective Information Pt is POD 5 s/p debridement of sacral ulcer, L and R chest ulcers, L cheek ulcer. Per EMR, plans for LTAC eval/transfer this afternoon. Pt reported good appetite and tolerance to foods. Pt stated that he has been drink Ensure products, but doesn't care for [place]. RD encouraged pt to try to drink them w/ juices for optimal wound healing. Pt is not yet meeting optimal nutritional needs. Current Diet Order/Nutrition Support Regular, Ensure High Protein BID x5 days Patient/Significant Other Able To Verbalize Education Provided Not Indicated Pertinent Medications thiamine, norco Pertinent Labs K 3.4 L, BG 90 WNL (improved), ALB 2 L, WBC 15.3 H, H/H 11.3L/32.4 L, AST 42 H, ALP 183 H, Ca 8 L (improved) Height (Feet) 5 feet Height (Inches) 6.00 inches Weight (Pounds) 150 pounds (12/04/17) Weight (Calculated Kilograms) 68.631785 kilograms Patient Weight 68.039 kg Body Mass Index 24.21 kg/m2 %IBW 105 [place]/Adjusted Body Weight IBW: 142 lb, 65 kg Recent Weight Change Unable to verify Weight Status Appropriate Food Allergies No Last Bowel Movement 12/17/17 -- per pt report Usual Diet At Home Regular Skin Integrity Comment: Foreign scale: 16; Per Still Operator Helper note 12/16/17: 1. Left chest: Wound, an ulceration from pressure (from lying on the floor for a prolonged period of time), present on admission. Sustained from fall at residence. Patient is status post surgical debridement on 12/11/17. 2. Right chest: Wound, apparently an ulceration from pressure (from lying on the floor for a prolonged period of time), present on admission. 3. Sacral area: Unstageable pressure ulcer, present on admission. Wound care performed by academic services coordinator nurse this morning. Dressing not removed for assessment secondary to doing so would decrease wound temperature and retard wound healing rate. 4. Left cheek: Wound, present on admission. Sustained from fall at residence. 5. Left shoulder: Ecchymosis, sustained from pressure (from lying on the floor for a prolonged period of time), present on admission. Current % PO Good -- 87% average x12 meals Estimated Energy Expenditure (kcals/day) 0684-5330 kcal/day (30-35 kcal/kg CBW for sepsis, wound healing) Estimated Protein Required (g/day) 54-102 gm/day (0.8-1.2 gm/kg CBW for ARF, sepsis, wound healing) Estimated Fluid Required (l/day) Per MD (ARF) Problem/Etiology/Signs/Symptoms Suboptimal nutritional intakes likely r/t cognitive function associated w/ dehydration as evidenced by elevated Na, and renal function labs, as well as poor PO intake report. *improving Increased nutritional needs related to metabolic demands as evidenced by estimated nutritional requirements for sepsis and wound healing. *improving Expected Outcomes/Goals - Monitor appetite and PO intakes w/ goal of pt meeting at least 75% of estimated nutritional needs, labs trending WNL, normal GI function, and skin integrity/wt maintenance Dietitian Recommendations * Recommend regular diet w/ Ensure Enlive BID (oral supplements will provide additional 700 kcal/day and 40 gm protein/day) Follow Up Low Risk: F/U in 7 days
--- NOTE | 2017-12-17 14:47 | NUR ---
Dietitian Recommendations * Recommend regular diet w/ Ensure Enlive BID (oral supplements will provide additional 700 kcal/day and 40 gm protein/day) LP, RD Please refer to Nutrition F/U for details.
--- NOTE | 2017-12-17 15:00 | NUR ---
NOTES PATIENT STABLE. DENIES PAIN AT THIS TIME. NO ACUTE DISTRESS. NO SOB. RESPIRATION EVEN AND UNLABORED. SKIN WARM AND DRY TO TOUCH. ALL NEED MET. CALL LIGHT IN REACH. CONT TO MONITOR.
--- NOTE | 2017-12-17 15:33 | NUR ---
PHYSICAL THERAPY CO-SIGN The Physical Therapy Progress Notes documented by Sole Splitter have been reviewed. I CONCUR W/TELEPHONE SERVICE REPRESENTATIVE NOTE; CONT PER TX PLAN Reviewed/Co-Signed by: Barby Guerrero PT Documentation Done by: ZI TIERNEY, KEYSHAWN Addendum: 12/17/17 at 1534 by Barby Guerrero PT Amended: Links added.
--- NOTE | 2017-12-17 16:05 | NUR ---
PT TRANSFERRED Report given to Avelina COREAS at [facility]. Transfer packet with Transfer Orders and Medication Reconciliation form given to EMT with report. Exitcare provided. [facility] ID band removed, replaced with ID band with pt's name and . IV catheter left in place; per request of Avelina COREAS; IV site intact and patent with no s/sx infection/infiltration noted. All belongings sent with patient including home meds that were kept in pharmacy; sent with EMT. Patient left floor via gurney escorted by EMT in no distress.
== END 2017-12-17 16:05 | DRG 853 ==
LOC: SED 17:15 → SIC 20:20 → STU 12-06 12:45 → SMU 12-09 23:28
PROVIDERS: ADMIT Family Medicine; ATTEND Family Medicine
PROC: 0JB10ZZ Excision of Face Subcutaneous Tissue and Fascia, Open Approach (ICD-10-PCS; 2017-12-11)
PROC: 0JB60ZZ Excision of Chest Subcutaneous Tissue and Fascia, Open Approach (ICD-10-PCS; 2017-12-11)
PROC: 0JB70ZZ Excision of Back Subcutaneous Tissue and Fascia, Open Approach (ICD-10-PCS; principal; 2017-12-11 13:00)
DX: A41.9 Sepsis, unspecified organism (principal); G93.41 Metabolic encephalopathy; J69.0 Pneumonitis due to inhalation of food and vomit; R65.21 Severe sepsis with septic shock; S42.252A Displaced fracture of greater tuberosity of left humerus, initial encounter for closed fracture; S42.212A Unspecified displaced fracture of surgical neck of left humerus, initial encounter for closed fracture; N17.9 Acute kidney failure, unspecified; E87.0 Hyperosmolality and hypernatremia; L03.313 Cellulitis of chest wall; M62.82 Rhabdomyolysis; L03.211 Cellulitis of face; I48.92 Unspecified atrial flutter; E46 Unspecified protein-calorie malnutrition; E86.0 Dehydration; S30.91XA Unspecified superficial injury of lower back and pelvis, initial encounter; E86.9 Volume depletion, unspecified; E87.6 Hypokalemia; E88.09 Other disorders of plasma-protein metabolism, not elsewhere classified; S00.81XA Abrasion of other part of head, initial encounter; S20.312A Abrasion of left front wall of thorax, initial encounter; K74.60 Unspecified cirrhosis of liver; I48.91 Unspecified atrial fibrillation; G62.9 Polyneuropathy, unspecified; R00.1 Bradycardia, unspecified; G20 Parkinson's disease; F17.200 Nicotine dependence, unspecified, uncomplicated; R13.10 Dysphagia, unspecified; W18.39XA Other fall on same level, initial encounter; F10.20 Alcohol dependence, uncomplicated; Y93.89 Activity, other specified; Y92.89 Other specified places as the place of occurrence of the external cause; Y99.8 Other external cause status; Z79.899 Other long term (current) drug therapy; Z71.41 Alcohol abuse counseling and surveillance of alcoholic; Z71.6 Tobacco abuse counseling; Z22.322 Carrier or suspected carrier of Methicillin resistant Staphylococcus aureus; Z68.24 Body mass index [BMI] 24.0-24.9, adult
CPT/HCPCS: 36415; 70450-TC; 70490; 71045; 72131; 72170-TC; 73030; 73560-TC; 76770; 80048; 80053; 80061; 80202-TC; 80307; 81000-TC; 82140-TC; 82550-TC; 82553-TC; 83605; 83690-TC; 83735-TC; 83880; 84443-TC; 84484; 85007; 85025; 85027; 85610-TC; 85730-TC; 87040-TC; 87081; 87086; 88305; 92610-GN; 93005; 95816; 96365; 96366; 96367; 97110-GP; 97116-GP; 97530-GP; 99291; A6209; G0480; G0481; G0482; J0692; J1450; J2060; J2250; J2543; J2704; J3010; J3370; J3480; J7030; J7050; J7060; J7120; Q0163

== ENCOUNTER 2017-12-25 21:44 | Inpatient (IN) | payer OTHER ==
[~2017-12-25] VITALS: Ht 167.6 cm; Wt 71.7 kg
[~2017-12-25 21:44] MED LIST changes: +ASPI-1153 PO; +ATOR-1 PO; -FAMO20TA8 PO; +FAMO40TA7 PO; +FOLI-43 PO; -HYDR-1189 PO; -LORA-259 PO
[2017-12-25 21:46] VITALS: BP_SYST 133
[2017-12-25] MEDS ORDERED: KETOROLAC TROMETHAMINE 30 MG VIAL IM ONE (22:00)
[2017-12-25] MEDS ORDERED: HYDR-4272 PO (22:41)
[2017-12-25 23:45] VITALS: BP_SYST 146
[2017-12-26 01:41] VITALS: BP_SYST 146
[2017-12-26] MEDS: HYDROcodone/ACETAMIN 10-325 MG TAB PO PRN ×3 (05:35→20:12)
[2017-12-26 08:00] VITALS: BP_SYST 137
[2017-12-26 12:15] VITALS: BP_SYST 119
[2017-12-26] MEDS ORDERED: BALSAM PERU/CASTOR OIL 60 GM OINT...G. TP ONE (14:15)
[2017-12-26] MEDS ORDERED: ACETAMINOPHEN 650 MG/20.3 ML UDC PO PRN (15:30)
[2017-12-26 16:36] VITALS: BP_SYST 150
[2017-12-26 20:21] VITALS: BP_SYST 147
[2017-12-27] VITALS: BP_SYST 127
[2017-12-27] MEDS: HYDROcodone/ACETAMIN 10-325 MG TAB PO PRN ×3 (06:26→23:13)
[2017-12-27 08:15] VITALS: BP_SYST 118
[2017-12-27] MEDS: BALSAM PERU/CASTOR OIL 60 GM OINT...G. TP SCH (10:19)
[2017-12-27 12:05] VITALS: BP_SYST 134
[2017-12-27 15:18] VITALS: BP_SYST 140
[2017-12-27 20:00] VITALS: BP_SYST 108
[2017-12-28 00:21] VITALS: BP_SYST 147
[2017-12-28 08:00] VITALS: BP_SYST 125
[2017-12-28] MEDS: HYDROcodone/ACETAMIN 10-325 MG TAB PO PRN ×3 (08:05→20:02)
[2017-12-28] MEDS: BALSAM PERU/CASTOR OIL 60 GM OINT...G. TP SCH (08:06)
[2017-12-28 12:05] VITALS: BP_SYST 123
[2017-12-28 16:05] VITALS: BP_SYST 134
[2017-12-28 20:00] VITALS: BP_SYST 138
[2017-12-29 00:19] VITALS: BP_SYST 138
[2017-12-29] MEDS: HYDROcodone/ACETAMIN 10-325 MG TAB PO PRN ×3 (02:02→20:27)
[2017-12-29 08:00] VITALS: BP_SYST 153
[2017-12-29] MEDS: BALSAM PERU/CASTOR OIL 60 GM OINT...G. TP SCH (08:29)
[2017-12-29 12:00] VITALS: BP_SYST 136
[2017-12-29 15:00] VITALS: BP_SYST 144
[2017-12-29 20:00] VITALS: BP_SYST 130
[2017-12-30] VITALS: BP_SYST 125
[2017-12-30] MEDS: HYDROcodone/ACETAMIN 10-325 MG TAB PO PRN ×2 (03:30→10:26)
[2017-12-30 07:05] VITALS: BP_SYST 131
[2017-12-30] MEDS: HYDROcodone/ACETAMIN 5-325 MG TAB (NORCO/ VICODIN) PO PRN ×3 (08:54→20:05)
[2017-12-30] MEDS: BALSAM PERU/CASTOR OIL 60 GM OINT...G. TP SCH (08:55)
[2017-12-30 11:14] VITALS: BP_SYST 138
[2017-12-30 20:01] VITALS: BP_SYST 138
[2017-12-31] VITALS: BP_SYST 140
[2017-12-31] MEDS: HYDROcodone/ACETAMIN 10-325 MG TAB PO PRN ×2 (02:17→20:24)
[2017-12-31 07:55] VITALS: BP_SYST 150
[2017-12-31] MEDS: BALSAM PERU/CASTOR OIL 60 GM OINT...G. TP SCH (08:49)
[2017-12-31 12:00] VITALS: BP_SYST 130
[2017-12-31] MEDS: HYDROcodone/ACETAMIN 5-325 MG TAB (NORCO/ VICODIN) PO PRN (15:32)
[2017-12-31 15:45] VITALS: BP_SYST 138
[2017-12-31 19:00] VITALS: BP_SYST 151
[2017-12-31 20:00] VITALS: BP_SYST 151
[2018-01-01 00:28] VITALS: BP_SYST 118
[2018-01-01] MEDS: HYDROcodone/ACETAMIN 10-325 MG TAB PO PRN ×4 (02:13→23:16)
[2018-01-01 08:05] VITALS: BP_SYST 122
[2018-01-01] MEDS: BALSAM PERU/CASTOR OIL 60 GM OINT...G. TP SCH (08:15)
[2018-01-01 15:01] VITALS: BP_SYST 119
[2018-01-01 19:20] VITALS: BP_SYST 128
[2018-01-02 01:59] VITALS: BP_SYST 120
[2018-01-02] MEDS: HYDROcodone/ACETAMIN 10-325 MG TAB PO PRN (04:59)
[2018-01-02 08:00] VITALS: BP_SYST 136
[2018-01-02] MEDS: BALSAM PERU/CASTOR OIL 60 GM OINT...G. TP SCH (08:35)
[2018-01-02 11:01] VITALS: BP_SYST 118
[2018-01-02 16:00] VITALS: BP_SYST 135
[2018-01-02 16:02] VITALS: BP_SYST 135
== END 2018-01-02 19:18 | DRG 563 ==
LOC: SED 21:44 → SMU 23:29
PROVIDERS: ADMIT Family Medicine; ATTEND Family Medicine
DX: S42.212A Unspecified displaced fracture of surgical neck of left humerus, initial encounter for closed fracture (principal); S21.109A Unspecified open wound of unspecified front wall of thorax without penetration into thoracic cavity, initial encounter; S01.80XA Unspecified open wound of other part of head, initial encounter; S31.109A Unspecified open wound of abdominal wall, unspecified quadrant without penetration into peritoneal cavity, initial encounter; D64.9 Anemia, unspecified; I48.91 Unspecified atrial fibrillation; K74.60 Unspecified cirrhosis of liver; F41.9 Anxiety disorder, unspecified; W18.39XA Other fall on same level, initial encounter; Y93.89 Activity, other specified; Y92.89 Other specified places as the place of occurrence of the external cause; Y99.8 Other external cause status
CPT/HCPCS: 73060-TC; 87081; 96372; 97110-GP; 97116-GP; 97530-GP; 97535-GP; 99285; J1885

== ENCOUNTER 2018-01-24 14:39 | Inpatient (IN) | payer OTHER ==
[~2018-01-24] VITALS: Ht 167.6 cm; Wt 74.8 kg
[~2018-01-24 14:39] MED LIST changes: -ASPI-1153 PO; -ATOR-1 PO; -FAMO40TA7 PO; -FOLI-43 PO; +HYDR-4272 PO; -MULT-1089 PO; -THIA100T13 PO
[2018-01-24 15:09] VITALS: BP_SYST 131
[2018-01-24 15:47] LABS: HEMATOCRIT 44.2 % (36-54); HEMOGLOBIN 14.3 g/dL (14.0-18.0); MEAN CORPUSCULAR HEMOGLOBIN 30 pg (27-31); MEAN CORPUSCULAR HGB CONC 32 % (32-36); MEAN CORPUSCULAR VOLUME 93 fL (79.0-98.0); PLATELET COUNT (AUTO) 275 K/uL (130-430); RED BLOOD CELL COUNT(AUTO) 4.76 MIL/uL (4.2-6.2); WHITE BLOOD COUNT (AUTO) 16.2 K/uL (4.8-10.8)
[2018-01-24 15:53] LABS: CALCIUM 9.5 mg/dL (8.4-11.0); CREATININE 1.18 mg/dL (0.55-1.30)
[2018-01-24 15:58] LABS: ALBUMIN 3.9 g/dL (3.4-4.8); TOTAL BILIRUBIN 2.4 mg/dL (0.0-1.0)
[2018-01-24 15:59] LABS: BAND % (MANUAL) 1 % (0-6); BASOPHILS % (MANUAL) 0 % (0-2); EOSINOPHILS % (MANUAL) 1 % (0-7); LYMPHOCYTES % (MANUAL) 15 % (20-46); MONOCYTES % (MANUAL) 8 % (0-11)
[2018-01-24] MEDS ORDERED: NACL 0.9% 1,000 ML IV ONE (16:38)
[2018-01-24] MEDS ORDERED: DIPHENHYDRAMINE INJ 50 MG/ML VIAL IVP ONE (16:45)
[2018-01-24] MEDS ORDERED: MORPHINE 2 MG/ML INJ. SYRINGE IVP ONE (16:45)
[2018-01-24 16:51] LABS: INR 1.1 (0.80-1.20); PROTHROMBIN TIME 11.2 SECS (9.5-12.5)
[2018-01-24] MEDS ORDERED: GABA-529 PO (17:21)
[2018-01-24] MEDS ORDERED: cefTRIAXone 1 GM IVPB PREMIX 50 ML IV ONE (17:45)
[2018-01-24] MEDS ORDERED: KCL 20 mEq in D5/0.45NS 1000mL 1,000 ML IV ONE (18:00)
[2018-01-24 18:21] VITALS: BP_SYST 150
[2018-01-24 20:00] VITALS: BP_SYST 122
[2018-01-24] MEDS ORDERED: metroNIDAZOLE 500 mg/NS 200 ML IV ONE (20:09)
[2018-01-24] MEDS: metroNIDAZOLE 500 mg/NS 100 ML IV SCH (20:34)
[2018-01-24] MEDS: chlordiazePOXIDE HCL 25 MG CAPSULE PO SCH (20:34)
[2018-01-24] MEDS: GABAPENTIN 100 MG CAPSULE PO SCH (20:34)
[2018-01-24] MEDS: KCL 20 mEq in 0.45% NS 1000 mL 1,000 ML IV SCH (21:14)
[2018-01-25 00:48] VITALS: BP_SYST 124
[2018-01-25] MEDS: HYDROcodone/ACETAMIN 10-325 MG TAB PO PRN ×2 (03:33→10:46)
[2018-01-25] MEDS: metroNIDAZOLE 500 mg/NS 100 ML IV SCH ×3 (05:41→21:18)
[2018-01-25] MEDS: KCL 20 mEq in 0.45% NS 1000 mL 1,000 ML IV SCH ×2 (05:41→16:59)
[2018-01-25] MEDS: chlordiazePOXIDE HCL 25 MG CAPSULE PO SCH ×3 (08:19→21:18)
[2018-01-25] MEDS: GABAPENTIN 100 MG CAPSULE PO SCH ×2 (08:19→21:19)
[2018-01-25] MEDS: ENOXAPARIN SODIUM 40 MG/0.4 ML SYRINGE SUBCUT SCH (08:20)
[2018-01-25 08:28] VITALS: BP_SYST 143
[2018-01-25 12:42] VITALS: BP_SYST 139
[2018-01-25 16:34] VITALS: BP_SYST 131
[2018-01-25] MEDS: OXYCODONE/ACETAMINOPHEN *10*mg/325 mg TABLET PO PRN ×2 (16:56→23:07)
[2018-01-25 19:50] VITALS: BP_SYST 133
[2018-01-26] VITALS: BP_SYST 99
[2018-01-26] MEDS: KCL 20 mEq in 0.45% NS 1000 mL 1,000 ML IV SCH ×2 (04:57→11:30)
[2018-01-26] MEDS: metroNIDAZOLE 500 mg/NS 100 ML IV SCH ×3 (05:01→21:39)
[2018-01-26] MEDS: OXYCODONE/ACETAMINOPHEN *10*mg/325 mg TABLET PO PRN ×3 (05:05→21:38)
[2018-01-26 08:14] VITALS: BP_SYST 135
[2018-01-26] MEDS: ENOXAPARIN SODIUM 40 MG/0.4 ML SYRINGE SUBCUT SCH (09:46)
[2018-01-26] MEDS: GABAPENTIN 100 MG CAPSULE PO SCH ×2 (09:46→21:38)
[2018-01-26] MEDS: DIPHENHYDRAMINE HCL 25 MG CAPSULE PO PRN ×2 (09:46→21:38)
[2018-01-26] MEDS: chlordiazePOXIDE HCL 25 MG CAPSULE PO SCH ×3 (09:46→21:38)
[2018-01-26 12:25] VITALS: BP_SYST 134
[2018-01-26 16:30] VITALS: BP_SYST 134
[2018-01-26 20:00] VITALS: BP_SYST 143
[2018-01-26 23:12] VITALS: BP_SYST 120
[2018-01-27] MEDS: metroNIDAZOLE 500 mg/NS 100 ML IV SCH ×3 (05:21→21:01)
[2018-01-27] MEDS: OXYCODONE/ACETAMINOPHEN *10*mg/325 mg TABLET PO PRN ×3 (07:45→21:03)
[2018-01-27] MEDS: DIPHENHYDRAMINE HCL 25 MG CAPSULE PO PRN ×3 (07:45→21:02)
[2018-01-27 08:00] VITALS: BP_SYST 145
[2018-01-27] MEDS: ENOXAPARIN SODIUM 40 MG/0.4 ML SYRINGE SUBCUT SCH (09:10)
[2018-01-27] MEDS: chlordiazePOXIDE HCL 25 MG CAPSULE PO SCH ×3 (09:10→21:02)
[2018-01-27] MEDS: GABAPENTIN 100 MG CAPSULE PO SCH ×2 (09:10→21:02)
[2018-01-27 12:20] VITALS: BP_SYST 110
[2018-01-27 16:20] VITALS: BP_SYST 127
[2018-01-27 21:51] VITALS: BP_SYST 136
[2018-01-27 23:41] VITALS: BP_SYST 96
[2018-01-28] MEDS: DIPHENHYDRAMINE HCL 25 MG CAPSULE PO PRN (02:26)
[2018-01-28] MEDS: OXYCODONE/ACETAMINOPHEN *10*mg/325 mg TABLET PO PRN ×2 (02:29→08:30)
[2018-01-28] MEDS: metroNIDAZOLE 500 mg/NS 100 ML IV SCH ×2 (07:01→12:50)
[2018-01-28 07:45] VITALS: BP_SYST 135
[2018-01-28] MEDS: GABAPENTIN 100 MG CAPSULE PO SCH (08:29)
[2018-01-28] MEDS: ENOXAPARIN SODIUM 40 MG/0.4 ML SYRINGE SUBCUT SCH (08:29)
[2018-01-28] MEDS: chlordiazePOXIDE HCL 25 MG CAPSULE PO SCH (08:29)
[2018-01-28] MEDS ORDERED: BALSAM PERU/CASTOR OIL 60 GM OINT...G. TP SCH (09:00)
[2018-01-28] MEDS ORDERED: METR500T PO (11:03)
[2018-01-28] MEDS ORDERED: LACT1CAP57 PO (11:04)
[2018-01-28 12:40] VITALS: BP_SYST 138
[2018-01-28 14:07] VITALS: BP_SYST 138
== END 2018-01-28 14:56 | disposition home health service (06) | DRG 871 ==
LOC: SED 14:39 → SMU 17:50
PROVIDERS: ADMIT Family Medicine; ATTEND Family Medicine
DX: A41.9 Sepsis, unspecified organism (principal); L89.894 Pressure ulcer of other site, stage 4; E87.2 Acidosis; K52.9 Noninfective gastroenteritis and colitis, unspecified; I48.91 Unspecified atrial fibrillation; K74.60 Unspecified cirrhosis of liver
CPT/HCPCS: 36415; 73030; 80053; 83605; 85007; 85027; 85610-TC; 85730-TC; 87040-TC; 87081; 87230-TC; 96365; 96375; 97110-GP; 97116-GP; 99285; G0482; J0696; J1200; J1650; J2270; J3480; J3490; Q0163

== ENCOUNTER 2018-02-02 18:55 | Emergency (ER) | payer OTHER ==
[~2018-02-02] VITALS: Ht 167.6 cm; Wt 74.8 kg
[~2018-02-02 18:55] MED LIST changes: +GABA-529 PO; +LACT1CAP57 PO; +METR500T PO
[2018-02-02 19:03] VITALS: BP_SYST 130
[2018-02-02] MEDS ORDERED: NACL 0.9% 1,000 ML IV ONE ×2 (19:52→20:15)
[2018-02-02] MEDS ORDERED: BACITRACIN 1 GM OINT TP ONE (20:00)
[2018-02-02] MEDS ORDERED: FOLIC ACID 1 MG, THIAMINE HCL 100 MG, MAGNESIUM SULFATE 1 GM, MVI 10 ML in NACL 0.9% 1,... IV ONE (20:00)
[2018-02-02] MEDS ORDERED: ONDANSETRON HCL 4 MG/2 ML VIAL IVP ONE (20:00)
[2018-02-02] MEDS ORDERED: THIAMINE HCL 100 MG/ML VIAL ONE (20:21)
[2018-02-02] MEDS ORDERED: MVI 10 ML VIAL IV ONE (20:21)
[2018-02-02] MEDS ORDERED: FOLIC ACID 5 MG/ML VIAL IV ONE (20:21)
[2018-02-02] MEDS ORDERED: MAGNESIUM SULFATE 1 GM/2 ML VIAL ONE (20:21)
[2018-02-02 20:39] LABS: BASOPHILS # (AUTO) 0.2 K/uL (0.0-0.2); BASOPHILS % (AUTO) 1.7 % (0.0-2.0); EOSINOPHILS # (AUTO) 0.1 K/uL (0.0-0.4); EOSINOPHILS % (AUTO) 1.5 % (0.0-4.0); HEMOGLOBIN 13.6 g/dL (14.0-18.0); LYMPHOCYTES # (AUTO) 1.9 K/uL (1.0-5.5); LYMPHOCYTES % (AUTO) 19.8 % (20.5-51.5); MEAN CORPUSCULAR HEMOGLOBIN 30 pg (27-31); MEAN CORPUSCULAR HGB CONC 33 % (32-36); MEAN CORPUSCULAR VOLUME 91 fL (79.0-98.0); MONOCYTES # (AUTO) 1.5 K/uL (0.0-1.0); MONOCYTES % (AUTO) 15.7 % (1.7-9.3); NEUTROPHILS # (AUTO) 6.1 K/uL (1.8-7.7); NEUTROPHILS % (AUTO) 61.3 % (40.0-70.0); PLATELET COUNT (AUTO) 273 K/uL (130-430); RED BLOOD CELL COUNT(AUTO) 4.49 MIL/uL (4.2-6.2); RED CELL DISTRIBUTION WIDTH 12.1 % (9.0-15.0); WHITE BLOOD COUNT (AUTO) 9.8 K/uL (4.8-10.8)
[2018-02-02 20:46] LABS: ANION GAP 9 (5-15); CALCIUM 9.5 mg/dL (8.4-11.0); CHLORIDE 102 mmol/L (98-107); CREATININE 1.19 mg/dL (0.55-1.30); GLUCOSE 94 mg/dL (70-99); POTASSIUM 4.2 mmol/L (3.5-5.1); SODIUM SERUM 137 mmol/L (136-145); UREA NITROGEN, BLOOD 15 mg/dL (8-21)
[2018-02-02 20:47] LABS: GFR AFRICAN AMERICAN 81 mL/min (>90)
[2018-02-02 20:48] LABS: INR 1.1 (0.80-1.20); PROTHROMBIN TIME 11.5 SECS (9.5-12.5)
[2018-02-02 20:51] LABS: ALANINE AMINOTRANSFERASE 46 U/L (12-78); ALBUMIN 3.9 g/dL (3.4-4.8); ALCOHOL, BLOOD < 3 mg/dL (<10); AMYLASE 51 U/L (0-100); ASPARTATE AMINOTRANSFERASE 63 U/L (10-37); LIPASE 238 U/L (73-393); TOTAL BILIRUBIN 1.1 mg/dL (0.0-1.0)
[2018-02-02] MEDS ORDERED: KETOROLAC TROMETHAMINE 30 MG VIAL IVP ONE (21:00)
[2018-02-02 22:08] VITALS: BP_SYST 132
== END 2018-02-02 22:08 | disposition home or self-care (01) ==
LOC: SED 18:55
DX: S42.352A Displaced comminuted fracture of shaft of humerus, left arm, initial encounter for closed fracture (principal); T81.33XA Disruption of traumatic injury wound repair, initial encounter; F10.10 Alcohol abuse, uncomplicated; G89.29 Other chronic pain; I48.91 Unspecified atrial fibrillation; R03.0 Elevated blood-pressure reading, without diagnosis of hypertension; Z79.899 Other long term (current) drug therapy; W10.9XXA Fall (on) (from) unspecified stairs and steps, initial encounter; Y93.89 Activity, other specified; Y92.89 Other specified places as the place of occurrence of the external cause; Y99.8 Other external cause status
CPT/HCPCS: 36415; 71045; 73030; 80053; 82150; 82550; 83605; 83690; 84484; 85025; 85610; 85730; 87040; 93005; 96365; 96375; 99285; G0482; J1885; J2405; J3411; J3475; J3490

== ENCOUNTER 2018-02-12 11:13 | Emergency (ER) | payer OTHER ==
[~2018-02-12] VITALS: Ht 167.6 cm; Wt 72.6 kg
--- NOTE | 2018-02-12 11:13 | NUR ---
[facility]
--- NOTE | 2018-02-12 11:15 | NUR ---
Pt presents to ER c/o L elbow and shoulder pain. Pt reports that he tripped and fell at home, during which he landed on L arm; pt denies KO or head trauma. Pt able to mobilize L arm, cap refill < 3, no signs of deformity, pt c/o 02/11 pain. Pt AOX4, ambulatory, speaking full sentences, respirations even and unlabored. Pt denies chest pain or sob, denies nausea or vomiting.
[2018-02-12 11:20] VITALS: BP_SYST 128
--- NOTE | 2018-02-12 11:30 | NUR ---
Radiology at bedside
--- NOTE | 2018-02-12 12:08 | NUR ---
Dr. Lopez at bedside speaking with pt discussing xray results.
[2018-02-12] MEDS ORDERED: IBUPROFEN 800 MG TABLET PO ONE (12:15)
--- NOTE | 2018-02-12 13:10 | NUR ---
Local cab company contacted to take pt home. ETA of 20-25 min given.
[2018-02-12 13:15] VITALS: BP_SYST 128
--- NOTE | 2018-02-12 13:15 | NUR ---
Patient given written and verbal discharge instructions and verbalizes understanding. ER MD discussed with patient the results and treatment provided. Patient in stable condition. ID arm band removed. Rx of Motrin & [address] given. Patient educated on pain management and to follow up with PMD. Pain Scale 3/10. Opportunity for questions provided and answered. Medication side effect fact sheet provided.
== END 2018-02-12 13:15 | disposition home or self-care (01) ==
LOC: SED 11:13
DX: S40.012A Contusion of left shoulder, initial encounter (principal); I48.91 Unspecified atrial fibrillation; K70.30 Alcoholic cirrhosis of liver without ascites; Z79.899 Other long term (current) drug therapy; W19.XXXA Unspecified fall, initial encounter; Y93.89 Activity, other specified; Y92.009 Unspecified place in unspecified non-institutional (private) residence as the place of occurrence of the external cause; Y99.8 Other external cause status
CPT/HCPCS: 73030; 99284

== ENCOUNTER 2018-02-26 22:24 | Emergency (ER) | payer OTHER ==
[~2018-02-26] VITALS: Ht 167.6 cm; Wt 70.3 kg
[~2018-02-26 22:24] MED LIST changes: -LACT1CAP57 PO; -METR500T PO
[2018-02-26 22:30] VITALS: BP_SYST 128
[2018-02-26] MEDS ORDERED: BACITRACIN 1 GM OINT TP ONE (23:00)
[2018-02-26 23:40] VITALS: BP_SYST 134
== END 2018-02-26 23:37 | disposition home or self-care (01) ==
LOC: SED 22:24
DX: S21.102A Unspecified open wound of left front wall of thorax without penetration into thoracic cavity, initial encounter (principal); M25.512 Pain in left shoulder; M54.9 Dorsalgia, unspecified; I48.91 Unspecified atrial fibrillation; Z79.899 Other long term (current) drug therapy; X58.XXXA Exposure to other specified factors, initial encounter; Y93.89 Activity, other specified; Y92.89 Other specified places as the place of occurrence of the external cause; Y99.8 Other external cause status
CPT/HCPCS: 99283

== ENCOUNTER 2018-02-27 11:09 | Emergency (ER) | payer OTHER ==
[~2018-02-27] VITALS: Ht 167.6 cm; Wt 70.3 kg
[2018-02-27 11:15] VITALS: BP_SYST 145
[2018-02-27] MEDS ORDERED: METOCLOPRAMIDE HCL 10 MG/2 ML VIAL IM ONE (12:00)
[2018-02-27] MEDS ORDERED: KETOROLAC TROMETHAMINE 60 MG/2 ML VIAL IM ONE (12:00)
[2018-02-27] MEDS ORDERED: ONDANSETRON 4 MG ODT TAB PO ONE (12:00)
[2018-02-27] MEDS ORDERED: LORazepam 2 MG/ML VIAL (FOR ER USE) IM ONE (12:00)
[2018-02-27] MEDS ORDERED: MAG HYDROX/AL HYDROX/SIMETH 30 ML, BELLADONNA ALKALOIDS/PHENOBARB 10 ML, LIDOCAINE VISC... PO ONE ×3 (12:00)
[2018-02-27 12:51] LABS: BASOPHILS # (AUTO) 0.2 K/uL (0.0-0.2); BASOPHILS % (AUTO) 1.3 % (0.0-2.0); EOSINOPHILS % (AUTO) 0.3 % (0.0-4.0); HEMATOCRIT 45.9 % (36-54); LYMPHOCYTES # (AUTO) 1.5 K/uL (1.0-5.5); LYMPHOCYTES % (AUTO) 11.2 % (20.5-51.5); MEAN CORPUSCULAR HEMOGLOBIN 30 pg (27-31); MEAN CORPUSCULAR HGB CONC 33 % (32-36); MEAN CORPUSCULAR VOLUME 92 fL (79.0-98.0); MONOCYTES # (AUTO) 1.2 K/uL (0.0-1.0); MONOCYTES % (AUTO) 9.2 % (1.7-9.3); NEUTROPHILS # (AUTO) 10.2 K/uL (1.8-7.7); PLATELET COUNT (AUTO) 339 K/uL (130-430); RED BLOOD CELL COUNT(AUTO) 4.98 MIL/uL (4.2-6.2); RED CELL DISTRIBUTION WIDTH 14.6 % (9.0-15.0)
[2018-02-27 12:54] LABS: CALCIUM 9.6 mg/dL (8.4-11.0); CREATININE 0.95 mg/dL (0.55-1.30); POTASSIUM 3.8 mmol/L (3.5-5.1)
[2018-02-27 12:55] LABS: WHITE BLOOD COUNT (AUTO) 13.1 K/uL (4.8-10.8)
[2018-02-27 12:57] LABS: INR 1.2 (0.80-1.20); PROTHROMBIN TIME 11.8 SECS (9.5-12.5)
[2018-02-27 13:00] LABS: ALBUMIN 3.8 g/dL (3.4-4.8); TOTAL BILIRUBIN 1.3 mg/dL (0.0-1.0)
[2018-02-27] MEDS ORDERED: LORazepam 1 MG TABLET PO ONE (13:15)
[2018-02-27 15:14] VITALS: BP_SYST 132
== END 2018-02-27 15:14 | disposition home or self-care (01) ==
LOC: SED 11:09
DX: F10.239 Alcohol dependence with withdrawal, unspecified (principal); Y90.0 Blood alcohol level of less than 20 mg/100 ml
CPT/HCPCS: 36415; 80053; 83690; 85025; 85610; 96372; 99284; G0482; J1885; J2001; J2060; J2765; Q0162

== ENCOUNTER 2018-03-22 15:54 | Inpatient (IN) | payer OTHER ==
[~2018-03-22] VITALS: Ht 170.2 cm; Wt 74.1 kg
[2018-03-22] MEDS ORDERED: NACL 0.9% 1,000 ML IV ONE (15:59)
[2018-03-22] MEDS ORDERED: KETOROLAC TROMETHAMINE 30 MG VIAL IVP ONE (16:00)
[2018-03-22 16:08] VITALS: BP_SYST 128
[2018-03-22] MEDS ORDERED: DIPHENHYDRAMINE INJ 50 MG/ML VIAL IVP ONE (16:30)
[2018-03-22] MEDS ORDERED: LORazepam 2 MG/ML VIAL (FOR ER USE) IVP ONE ×2 (16:30→19:00)
[2018-03-22 16:46] LABS: BASOPHILS % (AUTO) 0.3 % (0.0-2.0); EOSINOPHILS # (AUTO) 0.2 K/uL (0.0-0.4); EOSINOPHILS % (AUTO) 1.6 % (0.0-4.0); HEMATOCRIT 44.1 % (36-54); HEMOGLOBIN 14.6 g/dL (14.0-18.0); LYMPHOCYTES # (AUTO) 1.9 K/uL (1.0-5.5); LYMPHOCYTES % (AUTO) 13.4 % (20.5-51.5); MEAN CORPUSCULAR HEMOGLOBIN 30 pg (27-31); MEAN CORPUSCULAR HGB CONC 33 % (32-36); MEAN CORPUSCULAR VOLUME 91 fL (79.0-98.0); MONOCYTES # (AUTO) 0.7 K/uL (0.0-1.0); MONOCYTES % (AUTO) 4.6 % (1.7-9.3); NEUTROPHILS # (AUTO) 11.5 K/uL (1.8-7.7); NEUTROPHILS % (AUTO) 80.1 % (40.0-70.0); PLATELET COUNT (AUTO) 238 K/uL (130-430); RED BLOOD CELL COUNT(AUTO) 4.88 MIL/uL (4.2-6.2); RED CELL DISTRIBUTION WIDTH 15.3 % (9.0-15.0); WHITE BLOOD COUNT (AUTO) 14.3 K/uL (4.8-10.8)
[2018-03-22 16:49] LABS: ANION GAP 20 (5-15); CALCIUM 8.9 mg/dL (8.4-11.0); CHLORIDE 100 mmol/L (98-107); CREATININE 1.01 mg/dL (0.55-1.30); GLUCOSE 87 mg/dL (70-99); POTASSIUM 3.7 mmol/L (3.5-5.1); SODIUM SERUM 141 mmol/L (136-145); UREA NITROGEN, BLOOD 12 mg/dL (8-21)
[2018-03-22 16:50] LABS: GFR AFRICAN AMERICAN 98 mL/min (>90)
[2018-03-22 16:55] LABS: INR 1.2 (0.80-1.20)
[2018-03-22 17:06] LABS: ACETAMINOPHEN < 1 ug/mL (1-30); ALANINE AMINOTRANSFERASE 41 U/L (12-78); ALBUMIN 3.8 g/dL (3.4-4.8); ALCOHOL, BLOOD 122 mg/dL (<10); AMYLASE 61 U/L (0-100); ASPARTATE AMINOTRANSFERASE 57 U/L (10-37); LIPASE 352 U/L (73-393); TOTAL BILIRUBIN 1.1 mg/dL (0.0-1.0)
[2018-03-22] MEDS ORDERED: LIDOCAINE 1%, 20 ML MDV 20 ML ONE (17:40)
[2018-03-22] MEDS ORDERED: MORPHINE 4 MG/ML INJ. SYRINGE IVP ONE (17:45)
[2018-03-22] MEDS ORDERED: FOLIC ACID 1 MG, THIAMINE HCL 100 MG, MAGNESIUM SULFATE 1 GM, MVI 10 ML in NACL 0.9% 1,... IV ONE (19:00)
[2018-03-22] MEDS ORDERED: FOLIC ACID 5 MG/ML VIAL IV ONE (19:41)
[2018-03-22] MEDS ORDERED: THIAMINE HCL 100 MG/ML VIAL ONE (19:41)
[2018-03-22] MEDS ORDERED: MVI 10 ML VIAL IV ONE (19:41)
[2018-03-22] MEDS ORDERED: MAGNESIUM SULFATE 1 GM/2 ML VIAL ONE (19:41)
[2018-03-22 20:00] VITALS: BP_SYST 137
[2018-03-22 20:11] VITALS: BP_SYST 137
[2018-03-22] MEDS: KETOROLAC TROMETHAMINE 15 MG VIAL IVP PRN (23:46)
[2018-03-22] MEDS: LORazepam 1 MG TABLET PO PRN (23:47)
[2018-03-22] MEDS: FOLIC ACID 1 MG, THIAMINE HCL 100 MG, MAGNESIUM SULFATE 1 GM, MVI 10 ML in NACL 0.9% 1,... IV SCH (23:48)
[2018-03-23 00:34] VITALS: BP_SYST 131
[2018-03-23] MEDS: KETOROLAC TROMETHAMINE 15 MG VIAL IVP PRN ×3 (06:30→18:57)
[2018-03-23 06:43] LABS: ALBUMIN 3.2 g/dL (3.4-4.8); CALCIUM 8.4 mg/dL (8.4-11.0); CREATININE 0.8 mg/dL (0.55-1.30); POTASSIUM 4.1 mmol/L (3.5-5.1); TOTAL BILIRUBIN 2.1 mg/dL (0.0-1.0)
[2018-03-23 06:47] LABS: BASOPHILS % (AUTO) 0.5 % (0.0-2.0); EOSINOPHILS # (AUTO) 0.1 K/uL (0.0-0.4); EOSINOPHILS % (AUTO) 1.6 % (0.0-4.0); HEMATOCRIT 36.1 % (36-54); HEMOGLOBIN 12.2 g/dL (14.0-18.0); LYMPHOCYTES # (AUTO) 1.6 K/uL (1.0-5.5); LYMPHOCYTES % (AUTO) 22.6 % (20.5-51.5); MEAN CORPUSCULAR HEMOGLOBIN 31 pg (27-31); MEAN CORPUSCULAR HGB CONC 34 % (32-36); MEAN CORPUSCULAR VOLUME 91 fL (79.0-98.0); MONOCYTES # (AUTO) 0.6 K/uL (0.0-1.0); MONOCYTES % (AUTO) 8.4 % (1.7-9.3); NEUTROPHILS # (AUTO) 4.9 K/uL (1.8-7.7); NEUTROPHILS % (AUTO) 66.9 % (40.0-70.0); PLATELET COUNT (AUTO) 118 K/uL (130-430); RED BLOOD CELL COUNT(AUTO) 3.96 MIL/uL (4.2-6.2); RED CELL DISTRIBUTION WIDTH 15.1 % (9.0-15.0); WHITE BLOOD COUNT (AUTO) 7.2 K/uL (4.8-10.8)
[2018-03-23 08:00] VITALS: BP_SYST 139
[2018-03-23] MEDS: chlordiazePOXIDE HCL 25 MG CAPSULE PO PRN ×2 (08:40→14:44)
[2018-03-23] MEDS: ENOXAPARIN SODIUM 40 MG/0.4 ML SYRINGE SUBCUT SCH (08:41)
[2018-03-23 12:31] VITALS: BP_SYST 134
[2018-03-23 16:45] VITALS: BP_SYST 130
[2018-03-23 19:45] VITALS: BP_SYST 135
[2018-03-23] MEDS: FOLIC ACID 1 MG, THIAMINE HCL 100 MG, MAGNESIUM SULFATE 1 GM, MVI 10 ML in NACL 0.9% 1,... IV SCH (22:16)
[2018-03-23] MEDS: HYDROcodone/ACETAMIN 5-325 MG TAB (NORCO/ VICODIN) PO PRN (22:23)
[2018-03-23] MEDS: LORazepam 1 MG TABLET PO PRN (23:30)
[2018-03-24 00:28] VITALS: BP_SYST 136
[2018-03-24] MEDS: HYDROcodone/ACETAMIN 5-325 MG TAB (NORCO/ VICODIN) PO PRN ×4 (04:27→22:40)
[2018-03-24] MEDS: chlordiazePOXIDE HCL 25 MG CAPSULE PO PRN ×3 (06:05→18:37)
[2018-03-24 08:08] VITALS: BP_SYST 144
[2018-03-24] MEDS: ENOXAPARIN SODIUM 40 MG/0.4 ML SYRINGE SUBCUT SCH (08:16)
[2018-03-24 12:06] VITALS: BP_SYST 140
[2018-03-24 16:29] VITALS: BP_SYST 135
[2018-03-24 19:47] VITALS: BP_SYST 134
[2018-03-24] MEDS: FOLIC ACID 1 MG, THIAMINE HCL 100 MG, MAGNESIUM SULFATE 1 GM, MVI 10 ML in NACL 0.9% 1,... IV SCH (22:39)
[2018-03-24] MEDS: LORazepam 1 MG TABLET PO PRN (23:40)
[2018-03-25 00:24] VITALS: BP_SYST 135
[2018-03-25] MEDS: HYDROcodone/ACETAMIN 5-325 MG TAB (NORCO/ VICODIN) PO PRN ×4 (05:31→23:58)
[2018-03-25 07:32] VITALS: BP_SYST 133
[2018-03-25] MEDS: chlordiazePOXIDE HCL 25 MG CAPSULE PO PRN ×2 (09:00→16:30)
[2018-03-25 12:02] VITALS: BP_SYST 137
[2018-03-25 16:02] VITALS: BP_SYST 136
[2018-03-25 21:10] VITALS: BP_SYST 129
[2018-03-25] MEDS: FOLIC ACID 1 MG, THIAMINE HCL 100 MG, MAGNESIUM SULFATE 1 GM, MVI 10 ML in NACL 0.9% 1,... IV SCH (23:22)
[2018-03-26] MEDS: LORazepam 1 MG TABLET PO PRN ×2 (00:03→23:51)
[2018-03-26 00:04] VITALS: BP_SYST 126
[2018-03-26 04:20] VITALS: BP_SYST 119
[2018-03-26] MEDS: HYDROcodone/ACETAMIN 5-325 MG TAB (NORCO/ VICODIN) PO PRN ×3 (06:25→21:07)
[2018-03-26] MEDS: chlordiazePOXIDE HCL 25 MG CAPSULE PO PRN ×3 (07:00→22:06)
[2018-03-26 12:06] VITALS: BP_SYST 112
[2018-03-26 16:19] VITALS: BP_SYST 127
[2018-03-26 19:50] VITALS: BP_SYST 126
[2018-03-26] MEDS: FOLIC ACID 1 MG, THIAMINE HCL 100 MG, MAGNESIUM SULFATE 1 GM, MVI 10 ML in NACL 0.9% 1,... IV SCH (22:07)
[2018-03-27 04:10] VITALS: BP_SYST 134
[2018-03-27] MEDS: chlordiazePOXIDE HCL 25 MG CAPSULE PO PRN (06:14)
[2018-03-27] MEDS: HYDROcodone/ACETAMIN 5-325 MG TAB (NORCO/ VICODIN) PO PRN (06:14)
[2018-03-27 08:00] VITALS: BP_SYST 125
[2018-03-27 12:17] VITALS: BP_SYST 137
== END 2018-03-27 16:05 | disposition left against medical advice (07) | DRG 563 ==
LOC: SED 15:54 → STU 18:53 → SMU 03-26 14:56
PROVIDERS: ADMIT Family Medicine; ATTEND Family Medicine
PROC: 0HQ0XZZ Repair Scalp Skin, External Approach (ICD-10-PCS; principal; 2018-03-22)
DX: S62.511A Displaced fracture of proximal phalanx of right thumb, initial encounter for closed fracture (principal); S01.81XA Laceration without foreign body of other part of head, initial encounter; W18.39XA Other fall on same level, initial encounter; Y93.89 Activity, other specified; Y92.89 Other specified places as the place of occurrence of the external cause; Y99.8 Other external cause status; F10.129 Alcohol abuse with intoxication, unspecified
CPT/HCPCS: 36415; 71045; 80053; 82150-TC; 83690-TC; 83735-TC; 84484; 85025; 85610-TC; 85730-TC; 87081; 93005; 96365; 96366; 96375; 96376; 97110-GP; 97116-GP; 97530-GP; 99285; G0480; G0482; J1200; J1650; J1885; J2001; J2060; J2270; J3411; J3475; J3490; J7030

== ENCOUNTER 2018-04-24 20:41 | Inpatient (IN) | payer OTHER ==
[~2018-04-24] VITALS: Ht 167.6 cm; Wt 68.0 kg
--- NOTE | 2018-04-24 20:41 | NUR ---
Patient to ER bed 6 to gown for evaluation. Side rails up. Report given from LYUDMILA Randolph.
[2018-04-24 20:50] VITALS: BP_SYST 136
--- NOTE | 2018-04-24 20:50 | NUR ---
ER at bedside examining patient.
--- NOTE | 2018-04-24 21:00 | NUR ---
Pt came into the ED for HX of asthma and sleep apnea who came into the ED for SOB which started this morning. Pt says he feels 5/10 pressure like chest pain and weakness. Observed to have some tremors. Pt says he feels nauseous and has vomited once. Pt says he had one beer yesterday. Does not use inhalers or CPAP. No other complaints/injuries noted. Will cont. to monitor.
[2018-04-24] MEDS ORDERED: IPRATROPIUM/ALBUTEROL SULFATE 3 ML AMPUL.NEB (DUONEB) INH ONE (21:15)
[2018-04-24 21:28] LABS: BASOPHILS # (AUTO) 0.1 K/uL (0.0-0.2); BASOPHILS % (AUTO) 1.2 % (0.0-2.0); EOSINOPHILS % (AUTO) 0.4 % (0.0-4.0); HEMATOCRIT 37.2 % (36-54); HEMOGLOBIN 11.9 g/dL (14.0-18.0); LYMPHOCYTES # (AUTO) 1.1 K/uL (1.0-5.5); LYMPHOCYTES % (AUTO) 11.3 % (20.5-51.5); MEAN CORPUSCULAR HEMOGLOBIN 29 pg (27-31); MEAN CORPUSCULAR HGB CONC 32 % (32-36); MEAN CORPUSCULAR VOLUME 92 fL (79.0-98.0); MONOCYTES # (AUTO) 1.4 K/uL (0.0-1.0); MONOCYTES % (AUTO) 13.3 % (1.7-9.3); NEUTROPHILS # (AUTO) 7.6 K/uL (1.8-7.7); NEUTROPHILS % (AUTO) 73.8 % (40.0-70.0); PLATELET COUNT (AUTO) 287 K/uL (130-430); RED BLOOD CELL COUNT(AUTO) 4.06 MIL/uL (4.2-6.2); RED CELL DISTRIBUTION WIDTH 16.8 % (9.0-15.0); WHITE BLOOD COUNT (AUTO) 10.2 K/uL (4.8-10.8)
[2018-04-24 21:37] LABS: CALCIUM 8.4 mg/dL (8.4-11.0); CREATININE 1.09 mg/dL (0.55-1.30); POTASSIUM 3.8 mmol/L (3.5-5.1)
[2018-04-24 21:38] LABS: INR 1.1 (0.80-1.20); PROTHROMBIN TIME 10.9 SECS (9.5-12.5)
[2018-04-24 21:42] LABS: ALBUMIN 3.5 g/dL (3.4-4.8); TOTAL BILIRUBIN 1.8 mg/dL (0.0-1.0)
[2018-04-24] MEDS ORDERED: ACETAMINOPHEN 325 MG TABLET PO ONE (22:30)
[2018-04-24] MEDS ORDERED: LORazepam 1 MG TABLET PO ONE (23:00)
--- NOTE | 2018-04-24 23:00 | NUR ---
Note undone in EDM - 04/25/18 at 0053 by [email or web address] Pt came into the ED for HX of asthma and sleep apnea who came into the ED for SOB which started this morning. Pt says he feels 5/10 pressure like chest pain and weakness. Observed to have some tremors. Pt says he feels nauseous and has vomited once. Pt says he had one beer yesterday. Does not use inhalers or CPAP. No other complaints/injuries noted. Will cont. to monitor.
--- NOTE | 2018-04-24 23:08 | NUR ---
PT medicated with Ativan PO.
[2018-04-25] MEDS ORDERED: ACETAMINOPHEN 325 MG TABLET PO PRN (00:30)
--- NOTE | 2018-04-25 01:03 | NUR ---
Patient will be admitted to care of Dr. Saez. Admitted to Medsurg unit. Will go to room 114B. Belongings list completed. Summary report printed. Report will be given at bedside.
--- NOTE | 2018-04-25 01:15 | NUR ---
Transfer to [facility]. Licensed nurse present. IV present no signs or symptoms of infiltration.
[2018-04-25 01:30] VITALS: BP_SYST 141
--- NOTE | 2018-04-25 01:30 | NUR ---
ADMISSION NOTE Received patient from ER via gurney. Patient admitted with diagnosis of Alcohol withdrawal. Patient is awake, alert, oriented X 4. Patient oriented to hospital room, call light, toileting, pain management and safety-teach back done. Patient informed that Mi will be his nurse and that their room number is 114b. Personal belongings checked and Belongings List documented. Call light within reach.
--- NOTE | 2018-04-25 02:40 | NUR ---
Patient off unit to radiology via wheelchair.
[2018-04-25] MEDS ORDERED: IOHEXOL 350 mgI/mL, 150 ML INFUS..BTL IV ONE (02:51)
--- NOTE | 2018-04-25 03:35 | NUR ---
Patient back to unit from radiology. Pt denies pain or any discomfort. Will continue to monitor.
--- NOTE | 2018-04-25 04:15 | NUR ---
RN Notes Patient resting in bed, breathing even and unlabored. Pt denies pain at this time. No SOB or distress noted. Will continue to monitor.
[2018-04-25] MEDS: NACL 0.9% 1,000 ML IV SCH ×3 (04:52→20:30)
[2018-04-25] MEDS: PANTOPRAZOLE SODIUM 40 MG TAB PO SCH (06:06)
[2018-04-25] MEDS: LORazepam 2 MG/ML VIAL IVP PRN (06:12)
--- NOTE | 2018-04-25 06:24 | NUR ---
RN Notes Patient VSS, discomfort or distress noted. POC will be endorsed to oncoming shift.
[2018-04-25 07:20] LABS: BASOPHILS # (AUTO) 0.1 K/uL (0.0-0.2); BASOPHILS % (AUTO) 0.9 % (0.0-2.0); EOSINOPHILS # (AUTO) 0.1 K/uL (0.0-0.4); EOSINOPHILS % (AUTO) 0.9 % (0.0-4.0); HEMOGLOBIN 11.8 g/dL (14.0-18.0); LYMPHOCYTES # (AUTO) 1.6 K/uL (1.0-5.5); LYMPHOCYTES % (AUTO) 20.5 % (20.5-51.5); MEAN CORPUSCULAR HEMOGLOBIN 29 pg (27-31); MEAN CORPUSCULAR HGB CONC 32 % (32-36); MEAN CORPUSCULAR VOLUME 92 fL (79.0-98.0); MONOCYTES # (AUTO) 1.1 K/uL (0.0-1.0); MONOCYTES % (AUTO) 14.7 % (1.7-9.3); NEUTROPHILS # (AUTO) 4.7 K/uL (1.8-7.7); PLATELET COUNT (AUTO) 210 K/uL (130-430); RED BLOOD CELL COUNT(AUTO) 4.02 MIL/uL (4.2-6.2); RED CELL DISTRIBUTION WIDTH 16.9 % (9.0-15.0); WHITE BLOOD COUNT (AUTO) 7.6 K/uL (4.8-10.8)
[2018-04-25 07:56] LABS: ALBUMIN 3.5 g/dL (3.4-4.8); CALCIUM 9.1 mg/dL (8.4-11.0); CREATININE 1.06 mg/dL (0.55-1.30); TOTAL BILIRUBIN 2.6 mg/dL (0.0-1.0)
[2018-04-25 08:00] VITALS: BP_SYST 137
--- NOTE | 2018-04-25 08:00 | NUR ---
Opening Note Report received from [facility] shift nurse. Patient is currently awake and sitting up in bed. No complaints of chest pain or withdrawals noted at the moment. IV is on the RAC 20g running NS@100. call light is within reach and bed is in low position. Will continue to monitor.
[2018-04-25] MEDS: chlordiazePOXIDE HCL 25 MG CAPSULE PO SCH ×2 (08:42→21:11)
[2018-04-25] MEDS: GABAPENTIN 100 MG CAPSULE PO SCH ×2 (08:42→21:10)
[2018-04-25] MEDS: LEVOFLOXACIN 500 MG/D5W 100 ML IV SCH (08:42)
--- NOTE | 2018-04-25 10:20 | NUR ---
Rounds Patient is resting in bed. Call light is within reach.
[2018-04-25 12:00] VITALS: BP_SYST 124
[2018-04-25] MEDS: MULTIVITAMINS TAB 1 TABLET PO SCH (12:27)
--- NOTE | 2018-04-25 12:30 | NUR ---
Rounds Patient is resting in bed. No signs of distress noted.
[2018-04-25] MEDS: HYDROcodone/ACETAMIN 5-325 MG TAB (NORCO/ VICODIN) PO PRN ×3 (13:03→22:30)
--- NOTE | 2018-04-25 14:37 | NUR ---
Rounds patient is resting in bed. No complaints of SOB at the moment. Call light is within reach.
[2018-04-25 16:00] VITALS: BP_SYST 121
--- NOTE | 2018-04-25 17:00 | NUR ---
Pain med Medicated the patient for pain accordingly. Will reassess
--- NOTE | 2018-04-25 18:48 | NUR ---
Closing Note Patient is resting in bed. No complaints of SOB at the moment. IV is on the RAC 20g running NS@100. call light is within reach and bed is in low position. Will endorse care to the oncoming nurse.
[2018-04-25 20:20] VITALS: BP_SYST 115
--- NOTE | 2018-04-25 20:20 | NUR ---
OPENING NOTE Received patient AAOx4. VVS and respirations unlabored with oxygen saturation at 100%. He reports pain to left shoulder and right thumb due to old injury, presently denies pain to chest. He reports pain pill did not help and asked if he had another pain medication, I let him know I would follow up with his doctor. 20G to LAC has fluids infusing as ordered. Bed is locked to lowest position, 3 side rails up, bed alarm on. Instructed on use of bed alarm. Updated board. Will monitor.
--- NOTE | 2018-04-25 20:44 | NUR ---
S/W Spoke to Dr. Moose Saez regarding pain medication for the patient. I informed him the patient is report pain 11/11 and does not have medication for severe pain. Presently has Augusta 1 tab Q4 prn moderate pain. Dr. Ly ordered 2 tabs of [place] prn for severe pain. I read back and entered the order.
--- NOTE | 2018-04-25 22:53 | NUR ---
PAIN MEDICATION Patient reports severe pain, 8/10, to left shoulder. Medicated as ordered for prn pain medication. Reviewed medication indication and side effects with patient and he verbalized understanding. He was assisted to the restroom, he preferred to use his cart for support instead of a walker. He reported a bowel movement. He returned to bed and safety precautions were observed. Will monitor.
[2018-04-26] MEDS: NACL 0.9% 1,000 ML IV SCH ×4 (00:01→23:17)
[2018-04-26 01:19] VITALS: BP_SYST 90
--- NOTE | 2018-04-26 02:09 | NUR ---
ROUNDS Patient is sleeping, symmetrical rise and fall of chest, nonlabored breathing. Lights are off and t.v. is on. Call light w/in reach and safety precautions in place. Will monitor.
--- NOTE | 2018-04-26 03:59 | NUR ---
ROUNDS Patient is resting on left side down. He moved his arm and the IV alarmed. It was assessed and restarted, patient has no further needs. Safety precautions in place and call light w/in reach. Will monitor.
--- NOTE | 2018-04-26 06:40 | NUR ---
closing note Patient is awake resting in bed in no sign of distress, watching t.v. He reports pressure to chest, but does not described it as pain. He said Dr. Saez was in to see him. 20G to LAC has fluids infusing as ordered. Patient was given due medication and was educated on indication and side effect; he verbalized understanding. He reported severe pain to shoulder and was administered prn medication for severe pain. Safety precautions in place and call light w/in reach. Will endorse care to oncoming nurse.
--- NOTE | 2018-04-26 06:50 | NUR ---
Dr. Saez making rounds Dr. Saez was on the unit making rounds.
[2018-04-26] MEDS: PANTOPRAZOLE SODIUM 40 MG TAB PO SCH (06:59)
[2018-04-26] MEDS: HYDROcodone/ACETAMIN 5-325 MG TAB (NORCO/ VICODIN) PO PRN ×4 (07:01→23:23)
[2018-04-26 07:30] VITALS: BP_SYST 112
--- NOTE | 2018-04-26 08:00 | NUR ---
AM NOTES Patient laying in bed resting. No s/s of acute distress or SOB. IV site patent, intact, dressing is dry. Bed in lowest position,call light within reach.
[2018-04-26] MEDS: MULTIVITAMINS TAB 1 TABLET PO SCH (08:15)
[2018-04-26] MEDS: chlordiazePOXIDE HCL 25 MG CAPSULE PO SCH ×2 (08:15→20:20)
[2018-04-26] MEDS: GABAPENTIN 100 MG CAPSULE PO SCH ×2 (08:15→20:20)
[2018-04-26] MEDS: LEVOFLOXACIN 500 MG/D5W 100 ML IV SCH (08:17)
--- NOTE | 2018-04-26 09:00 | NUR ---
SMOKING Patient wishes to have a smoke break. Consent to smoke is signed and in the chart. CAN FILLING ROOM SWEEPER will accompany patient.
--- NOTE | 2018-04-26 09:30 | NUR ---
OUT TO SMOKE Patient accompanied by DESIRE Welsh. Addendum: 04/27/18 at 1910 by Harriet Rojo RN OUT TO SMOKE ADDITION Gait is steady with assistance of a walker.
--- NOTE | 2018-04-26 10:00 | NUR ---
RETURNED FROM SMOKE BREAK No s/s of distress or SOB. Patient is back in bed.
--- NOTE | 2018-04-26 11:32 | NUR ---
ROUNDS Patient laying in bed resting. No s/s of distress or SOB. All needs being met. Bed in lowest position, call light within reach.
[2018-04-26 11:59] VITALS: BP_SYST 104
[2018-04-26] MEDS: LORazepam 2 MG/ML VIAL IVP PRN ×3 (12:36→23:22)
--- NOTE | 2018-04-26 13:16 | NUR ---
IV RE-INSERTION: Right FA IV site no longer patent. New 20G IV site restarted on left FA. Successful after 1 attempt. Resumed current IVF of NS at 100cc per hour. No signs of infiltration, flushes well and good backflow of blood. Previous IV site removed, catheter intact.
[2018-04-26 16:00] VITALS: BP_SYST 100
--- NOTE | 2018-04-26 18:54 | NUR ---
CLOSING NOTES Patient laying in bed resting, no s/s of distress or SOB. All needs met throughout shift. Safety and fall precautions maintained. IV site patent, intact, dressing is dry. Bed in lowest position, call light within reach. Will endorse to oncoming RN.
--- NOTE | 2018-04-26 19:30 | NUR ---
INITIAL NOTES RECEIVED HANDOFF REPORT FROM OFFGOING NURSE AT THE BEDSIDE. PATIENT IS AWAKE AND ALERT, RESTING COMFORTABLY IN BED. NO SOB, NO ACUTE DISTRESS, NO COMPLAINTS OF DISCOMFORT AT THIS TIME. CURRENTLY ON 2L NC. IVF INFUSING AT ORDERED RATE, SEE EMAR FOR DETAILS. BED IS LOCKED, IN THE LOWEST POSITION, 2X SIDE RAILS UP. PATIENT REFUSES BED ALARM. CALL LIGHT WITHIN REACH. ENCOURAGED PATIENT TO CALL FOR ASSISTANCE.
[2018-04-26 20:00] VITALS: BP_SYST 121
--- NOTE | 2018-04-26 21:46 | NUR ---
PATIENT RETURNED FROM GOING OUT TO SMOKE. CONNECTED PATIENT BACK ONTO IVF, SEE EMAR FOR DETAILS.
--- NOTE | 2018-04-26 23:23 | NUR ---
PATIENT IS COMPLAINING OF PAIN. PROVIDED NORCO PRN PER MD ORDER, SEE EMAR FOR DETAILS.
[2018-04-26 23:56] VITALS: BP_SYST 118
--- NOTE | 2018-04-27 00:44 | NUR ---
PATIENT IS ASLEEP, RESTING COMFORTABLY IN BED. NO SOB, NO ACUTE DISTRESS, NO SIGNS OF DISCOMFORT. BED IS LOCKED, IN THE LOWEST POSITION, 2X SIDE RAILS UP, BED ALARM IS ON. CALL LIGHT WITHIN REACH.
--- NOTE | 2018-04-27 02:30 | NUR ---
PATIENT'S IV SITE CAME OUT, CATHETER IS INTACT. NEW IV STARTED ON THE LEFT HAND #22G. PATIENT TOLERATED PROCEDURE WELL.
[2018-04-27] MEDS: LORazepam 2 MG/ML VIAL IVP PRN ×4 (03:48→19:30)
[2018-04-27] MEDS: HYDROcodone/ACETAMIN 5-325 MG TAB (NORCO/ VICODIN) PO PRN ×3 (03:50→19:30)
--- NOTE | 2018-04-27 03:50 | NUR ---
PATIENT IS COMPLAINING OF PAIN. PROVIDED NORCO PRN PER MD ORDER, SEE EMAR FOR DETAILS.
[2018-04-27] MEDS: PANTOPRAZOLE SODIUM 40 MG TAB PO SCH (06:08)
--- NOTE | 2018-04-27 06:22 | NUR ---
PROVIDED BLACK COFFEE PER PATIENT REQUEST. PATIENT IS RESTING COMFORTABLY IN BED. NO SOB, NO ACUTE DISTRESS, NO COMPLAINTS OF DISCOMFORT AT THIS TIME. IVF INFUSING AT THE ORDERED RATE, SEE EMAR FOR DETAILS. BED IS LOCKED, IN THE LOWEST POSITION, 2X SIDE RAILS UP, BED ALARM IS ON. CALL LIGHT IS WITHIN REACH. ENCOURAGED PATIENT TO CALL FOR ASSISTANCE.
[2018-04-27 07:30] VITALS: BP_SYST 118
--- NOTE | 2018-04-27 07:43 | NUR ---
AM NOTES Patient laying in bed awake, alert, orientedx3. No s/s of acute distress or SOB. IV site patent, intact, dressing is dry. Bed in lowest position,call light within reach.
--- NOTE | 2018-04-27 07:46 | NUR ---
CLOSING NOTES HANDOFF REPORT GIVEN TO ONCOMING NURSE AT THE BEDSIDE. PATIENT IS AWAKE AND ALERT, RESTING COMFORTABLY IN BED. NO SOB, NO ACUTE DISTRESS, NO COMPLAINTS OF DISCOMFORT AT THIS TIME. IVF INFUSING AT THE ORDERED RATE, SEE EMAR. BED IS LOCKED, IN THE LOWEST POSITION, 2X SIDE RAILS UP, BED ALARM IS ON. CALL LIGHT IS WITHIN REACH. FALL AND SAFETY PRECAUTIONS MAINTAINED. ALL NEEDS HAVE BEEN MET DURING THIS SHIFT.
[2018-04-27] MEDS: MULTIVITAMINS TAB 1 TABLET PO SCH (09:39)
[2018-04-27] MEDS: LEVOFLOXACIN 500 MG/D5W 100 ML IV SCH (09:39)
[2018-04-27] MEDS: chlordiazePOXIDE HCL 25 MG CAPSULE PO SCH ×2 (09:40→20:04)
[2018-04-27] MEDS: GABAPENTIN 100 MG CAPSULE PO SCH ×2 (09:40→20:04)
[2018-04-27 10:56] VITALS: BP_SYST 100
--- NOTE | 2018-04-27 11:49 | NUR ---
Nutrition Update Foreign Scale 18 noted. Pt admitted for alcohol withdrawal, pneumonia. Diet: regular BMI: 24.2 kg/m2 RD to follow per nutrition care standards.
[2018-04-27] MEDS: NACL 0.9% 1,000 ML IV SCH ×2 (12:30→20:06)
--- NOTE | 2018-04-27 12:48 | NUR ---
ROUNDS Patient laying in bed resting. No s/s of distress or SOB. All needs being met. Bed in lowest position, call light within reach. Will cont. to monitor.
[2018-04-27 15:42] VITALS: BP_SYST 129
--- NOTE | 2018-04-27 19:30 | NUR ---
INITIAL NOTES HANDOFF REPORT RECEIVED FROM OFFGOING NURSE AT THE BEDSIDE. PATIENT IS AWAKE AND ALERT, RESTING COMFORTABLY IN BED. NO SOB, NO ACUTE DISTRESS. PATIENT IS COMPLAINING OF PAIN AND ANXIETY. PROVIDED NORCO AND ATIVAN PRN PER MD ORDER, SEE EMAR FOR DETAILS. IVF INFUSING AT THE ORDERED RATE, SEE EMAR. BED IS LOCKED, IN THE LOWEST POSITION, 2X SIDE RAILS UP, BED ALARM IS ON. CALL LIGHT IS WITHIN REACH. ENCOURAGED PATIENT TO CALL FOR ASSISTANCE. WILL CONTINUE WITH PLAN OF CARE.
[2018-04-27 20:00] VITALS: BP_SYST 110
--- NOTE | 2018-04-27 20:30 | NUR ---
PATIENT WENT OUT TO SMOKE WITH PSYCH SOCIAL WORKER.
--- NOTE | 2018-04-27 22:08 | NUR ---
PATIENT BACK TO BED. CONNECTED BACK TO IVF, INFUSING AT ORDERED RATE, SEE EMAR FOR DETAILS. NO SOB, NO ACUTE DISTRESS, NO COMPLAINTS OF DISCOMFORT. BED IS LOCKED, IN THE LOWEST POSITION, 2X SIDE RAILS UP, BED ALARM IS ON. CALL LIGHT WITHIN REACH. ENCOURAGED PATIENT TO CALL FOR ASSISTANCE.
--- NOTE | 2018-04-27 23:28 | NUR ---
PATIENT RESTING COMFORTABLY IN BED WITH EYES CLOSED. NO SOB, NO ACUTE DISTRESS, NO SIGNS OF DISCOMFORT. BREATHING EVEN AND UNLABORED WITH VISIBLE CHEST RISE AND FALL NOTED. IVF INFUSING AT THE ORDERED RATE, SEE EMAR FOR DETAILS. BED IS LOCKED, IN THE LOWEST POSITION, 2X SIDE RAILS UP. CALL LIGHT WITHIN REACH.
--- NOTE | 2018-04-28 01:57 | NUR ---
PATIENT RESTING COMFORTABLY IN BED WITH EYES CLOSED. NO SOB, NO ACUTE DISTRESS, NO SIGNS OF DISCOMFORT. BED IS LOCKED, IN THE LOWEST POSITION, 2X SIDE RAILS UP, BED ALARM IS ON. IVF INFUSING AT ORDERED RATE, SEE EMAR. CALL LIGHT WITHIN REACH.
[2018-04-28 03:48] VITALS: BP_SYST 129
--- NOTE | 2018-04-28 04:58 | NUR ---
PATIENT RESTING COMFORTABLY IN BED WITH EYES CLOSED. NO SOB, NO ACUTE DISTRESS, NO SIGNS OF DISCOMFORT AT THIS TIME. BREATHING IS EVEN AND UNLABORED WITH VISIBLE CHEST RISE AND FALL NOTED. IVF IS INFUSING AT THE ORDERED RATE, SEE EMAR FOR DETAILS. BED IS LOCKED IN THE LOWEST POSITION, 2X SIDE RAILS UP, BED ALARM IS ON. CALL LIGHT IS WITHIN REACH.
[2018-04-28] MEDS: HYDROcodone/ACETAMIN 5-325 MG TAB (NORCO/ VICODIN) PO PRN ×3 (06:04→21:37)
[2018-04-28] MEDS: LORazepam 2 MG/ML VIAL IVP PRN ×3 (06:04→21:39)
[2018-04-28] MEDS: PANTOPRAZOLE SODIUM 40 MG TAB PO SCH (06:04)
--- NOTE | 2018-04-28 06:04 | NUR ---
PATIENT IS COMPLAINING OF LEFT SHOULDER PAIN AND ANXIETY. PROVIDED NORCO AND ATIVAN PRN PER MD ORDER, SEE EMAR FOR DETAILS.
[2018-04-28] MEDS: NACL 0.9% 1,000 ML IV SCH (06:42)
--- NOTE | 2018-04-28 07:35 | NUR ---
received endorsement at the bedside by tu sagastume. patient is aaox 4. has oxygen of 2lnc. no sob noted. has rt hand splint in placed. assisted on the breakfast. has iv access on the left forearm 20 with normal saline at 100cc/hr infusing on well. no chest pain noted. verbalized no bm yet today. call lights within reach. will continue to monitor patient status.
--- NOTE | 2018-04-28 07:37 | NUR ---
CLOSING NOTES HANDOFF REPORT GIVEN TO ONCOMING DAYSHIFT NURSE AT THE BEDSIDE. PATIENT IS RESTING COMFORTABLY IN BED WITH EYES CLOSED. NO SOB, NO ACUTE DISTRESS, NO SIGNS OF DISCOMFORT. BREATHING IS EVEN AND UNLABORED WITH VISIBLE CHEST RISE AND FALL NOTED. IVF INFUSING AT THE ORDERED RATE, SEE EMAR FOR DETAILS. CALL LIGHT IS WITHIN REACH. FALL AND SAFETY PRECAUTIONS MAINTAINED. ALL NEEDS HAVE BEEN MET DURING THIS SHIFT.
[2018-04-28 08:23] VITALS: BP_SYST 132
[2018-04-28] MEDS: chlordiazePOXIDE HCL 25 MG CAPSULE PO SCH ×2 (08:34→21:21)
[2018-04-28] MEDS: GABAPENTIN 100 MG CAPSULE PO SCH ×2 (08:34→21:21)
[2018-04-28] MEDS: MULTIVITAMINS TAB 1 TABLET PO SCH (08:34)
[2018-04-28] MEDS: LEVOFLOXACIN 500 MG/D5W 100 ML IV SCH (08:38)
--- NOTE | 2018-04-28 08:41 | NUR ---
patient eating breakfast little by little. no pain noted. no sob noted. iv antibiotic given at this time.
--- NOTE | 2018-04-28 09:00 | NUR ---
medication due given at this time. no pain noted. no sob noted. able to eat good for breakfast about 80% of food.
--- NOTE | 2018-04-28 10:57 | NUR ---
patient is quite and resting. monitor patient status.
--- NOTE | 2018-04-28 11:19 | NUR ---
resting at this time. respiration is even and unlabored.
[2018-04-28 12:00] VITALS: BP_SYST 130
--- NOTE | 2018-04-28 15:24 | NUR ---
complained of head pain, back and ears. norco 2 tabs po given. and ativan 0.5 mg iv given. made comfortable.
[2018-04-28 15:30] VITALS: BP_SYST 138
--- NOTE | 2018-04-28 16:19 | NUR ---
verbalized feels much better. will continue to monitor patients status.
--- NOTE | 2018-04-28 17:16 | NUR ---
back in the room from smoking outside with Marlin COREAS. feels much better.
--- NOTE | 2018-04-28 18:19 | NUR ---
still eating dinner slowly at this time. feels very happy for letting him out for cigarette. no sob no pain noted.
--- NOTE | 2018-04-28 19:20 | NUR ---
OPENING NOTES RECEIVED PATIENT RESTING IN BED. BREATHING UNLABORED ON ROOM AIR. IVF INFUSING ORDERED. IV LINE INTACT TO LEFT HAND. CALL LIGHT WITHIN REACH. BED ALARM ON.
[2018-04-28 21:30] VITALS: BP_SYST 115
--- NOTE | 2018-04-28 21:37 | NUR ---
PAIN MGT PATIENT MEDICATED WITH NORCO ORDERED FOR C/O 9/10 PAIN TO LEFT SHOULDER/LEFT KNEE/RT THUMB/CHEST. VITAL SIGNS STABLE. PATIENT INSTRUCTED TO OBSERVE FALL/SAFETY PRECAUTIONS FOR POSSIBLE SIDE EFFECTS OF MEDICATIONS. BED ALARM ON.
[2018-04-28 23:26] VITALS: BP_SYST 126
--- NOTE | 2018-04-29 00:30 | NUR ---
ROUNDS PATIENT RESTING IN BED. NO DISTRESS NOTED. IVF INFUSING WITH IV LINE INTACT. CALL LIGHT WITH IN REACH. BED ALARM ON.
[2018-04-29] MEDS: NACL 0.9% 1,000 ML IV SCH ×3 (02:46→14:30)
[2018-04-29] MEDS: HYDROcodone/ACETAMIN 5-325 MG TAB (NORCO/ VICODIN) PO PRN ×4 (02:57→20:38)
--- NOTE | 2018-04-29 02:57 | NUR ---
PAIN MGT PATIENT MEDICATED WITH NORCO ORDERED FOR C/O LEFT KNEE/SHOULDER/RT THUMB/CHEST PAIN 01/12. CALL LIGHT WITHIN REACH. BED ALARM ON.
--- NOTE | 2018-04-29 05:03 | NUR ---
ROUNDS PATIENT AWAKE IN BED WATCHING TV. NO DISTRESS NOTED. IVF INFUSING. CALL LIGHT WITH IN REACH.
[2018-04-29] MEDS: PANTOPRAZOLE SODIUM 40 MG TAB PO SCH (06:30)
--- NOTE | 2018-04-29 06:40 | NUR ---
SMOKE PATIENT ACCOMPANIED VIA WHEELCHAIR TO SMOKING AREA.
--- NOTE | 2018-04-29 07:01 | NUR ---
CLOSING NOTES PATIENT RESTING IN BED AWAKE WATCHING TV. BREATHING UNLABORED. IVF INFUSING WITH IV LINE INTACT. PATIENT NEEDS ATTENDED. CALL LIGHT WITH IN EASY REACH. BED ALARM ON.
[2018-04-29 07:16] LABS: MEAN CORPUSCULAR HGB CONC 34 % (32-36); PLATELET COUNT (AUTO) 107 K/uL (130-430)
[2018-04-29 07:27] LABS: CALCIUM 7.8 mg/dL (8.4-11.0); CREATININE 0.97 mg/dL (0.55-1.30)
[2018-04-29 07:35] LABS: WHITE BLOOD COUNT (AUTO) 7.9 K/uL (4.8-10.8)
[2018-04-29 07:36] LABS: PHOSPHORUS 2.9 mg/dL (2.7-4.5); RED BLOOD CELL COUNT(AUTO) 3.36 MIL/uL (4.2-6.2)
[2018-04-29 07:37] LABS: HEMOGLOBIN 10.5 g/dL (14.0-18.0)
[2018-04-29 07:38] LABS: HEMATOCRIT 30.8 % (36-54); MEAN CORPUSCULAR HEMOGLOBIN 31 pg (27-31); MEAN CORPUSCULAR VOLUME 92 fL (79.0-98.0)
[2018-04-29 07:39] LABS: LYMPHOCYTES % (AUTO) 19.7 % (20.5-51.5); NEUTROPHILS % (AUTO) 70.3 % (40.0-70.0)
[2018-04-29 07:40] LABS: BASOPHILS % (AUTO) 0.5 % (0.0-2.0); EOSINOPHILS % (AUTO) 2.7 % (0.0-4.0); MONOCYTES % (AUTO) 6.8 % (1.7-9.3); NEUTROPHILS # (AUTO) 5.6 K/uL (1.8-7.7)
[2018-04-29 07:41] LABS: LYMPHOCYTES # (AUTO) 1.6 K/uL (1.0-5.5); MONOCYTES # (AUTO) 0.5 K/uL (0.0-1.0)
[2018-04-29 08:00] VITALS: BP_SYST 125
--- NOTE | 2018-04-29 08:00 | NUR ---
Opening Note: Received report from night nurse. Patient is resting comfortably in bed. no s/s of distress or sob. patient is awake and alert. iv is patent and infusing. vital signs updated in vital sign flowsheet. scd's in place. call light in reach, bed in lowest position, and will continue to monitor.
[2018-04-29] MEDS: GABAPENTIN 100 MG CAPSULE PO SCH ×2 (09:51→20:37)
[2018-04-29] MEDS: MULTIVITAMINS TAB 1 TABLET PO SCH (09:52)
[2018-04-29] MEDS: LEVOFLOXACIN 500 MG/D5W 100 ML IV SCH (09:52)
[2018-04-29] MEDS: chlordiazePOXIDE HCL 25 MG CAPSULE PO SCH ×2 (09:52→20:37)
[2018-04-29] MEDS: LORazepam 2 MG/ML VIAL IVP PRN (09:52)
--- NOTE | 2018-04-29 10:00 | NUR ---
RN ROUNDS PATIENT IS RESTING COMFORTABLY IN BED. NO S/S OF DISTRESS OR SOB. PATIENT IS ALERT AND ORIENTED. NO NEEDS EXPRESSED AT THIS TIME. CALL LIGHT IN REACH, BED IN LOWEST POSITION, AND WILL CONTINUE TO MONITOR.
[2018-04-29 12:00] VITALS: BP_SYST 120
--- NOTE | 2018-04-29 12:20 | NUR ---
SS NOTE POURER METAL met with pt at bedside per order of "alcohol dependence". Per pt, he drinks beer 1x week and denies being intoxicated when admitted, confirmed by tox screen. Per pt he lives in a senior apartment ([facility]) alone. Pt states he is independent but with "unstable balance". Pt states he owns a FWW but prefers to use a cart as his walker. Pt states he uses his cart because it does not hurt his hand. Pt states he "hates it when people ask about alcohol because I don't drink anymore". Pt denies being an alcoholic and states he "quit since November". Pt states he wishes someone could take him out for a walk, but "the nurses are too busy and understaffed". POURER METAL will confirm with RN if any ambulating restrictions are present and will update pt. At this time, no further SS needs identified but will remain available. Addendum: 04/29/18 at 1411 by Sarah Beth SANDOVAL POURER METAL spoke with Diane COREAS regarding pt ambulating. Per nurse, physical therapy assessed him and pt is needing minimal assistance. POURER METAL met with pt and confirmed assessment with PT. Pt states he "feels good that I got to walk" but still feels a "little wobbly and unstable". POURER METAL provided pt with detox/alcohol rehab resources.
--- NOTE | 2018-04-29 12:58 | NUR ---
Case mgt: See social service note--pt has physical therapy ordered 04/28/18 at 1345--I called nurse Diane to inquire if PT got the pt OOB--she wasn't sure and said pt has been in bed all day-Diane will f/u as I explained we will need the PT eval if pt requires it for home health. RACHEL RN
--- NOTE | 2018-04-29 14:00 | NUR ---
RN ROUNDS PATIENT IS RESTING COMFORTABLY IN BED. NO S/S OF DISTRESS OR SOB. PATIENT IS ALERT AND ORIENTED. PATIENT MEDICATEF FOR PAIN ACCORDING TO MEDICATION ORDER. PATIENT REQUESTING . CALL LIGHT IN REACH, BED IN LOWEST POSITION, AND WILL CONTINUE TO MONITOR.
--- NOTE | 2018-04-29 14:45 | NUR ---
DC planning: Met w/pt at bedside to discuss dc plan--PT recommended home health for PT for the 16 stairs at home. The pt says he used [facility] before but he doesn't want to go home yet because he lives alone and doesn't feel steady. I discussed with pt that this is the same issue he has on prior admissions and recommended he finds a caregiver to stay with him if he doesn't want to be alone. Pt says he can't afford a caregiver. I explained the MD will review the PT notes as Monalisa had only verbally indicated he needs PT because of the stairs, but not unsteady gait. PT eval notes should be available soon to review, and explained to pt the MD will review and decide his stability for discharge. I have left message for Dr. Vazquez requesting dc planning order for home health. RACHEL RN
--- NOTE | 2018-04-29 14:50 | NUR ---
SS NOTE residence: [facility] [place] [address], [address] [place] [address]
--- NOTE | 2018-04-29 15:21 | NUR ---
Case mgt: Rec'd order for dc planning for Home Health for RN mesha and PT--Faxed referral to [facility] at fax#[phone]--ph#[phone]--[facility] at [facility] made aware I'm faxing referral. RACHEL COREAS
[2018-04-29 16:00] VITALS: BP_SYST 115
[2018-04-29 16:13] VITALS: BP_SYST 141
--- NOTE | 2018-04-29 16:30 | NUR ---
RN ROUNDS PATIENT IS RESTING ANXIOUSLY IN BED. NO S/S OF DISTRESS OR SOB. PATIENT IS ALERT AND ORIENTED. PATIENT STATES THAT HE IS DEPRESSED BUT WANT TO WAIT FOR DR. ALCANTAR TO SEE IF HE CAN GET SOMETHING STRONGER THAN THE ORDERED ATIVAN. PATIENT REQUESTING TO GO OUTSIDE AND SMOKE BUT MADE AWARE THAT NO ONE IS AVAILABLE RIGHT NOW TO TAKE HIM. CALL LIGHT IN REACH, BED IN LOWEST POSITION, AND WILL CONTINUE TO MONITOR.
--- NOTE | 2018-04-29 19:11 | NUR ---
CLOSING NOTE: PATIENT IS RESTING COMFORTABLY IN BED. NO S/S OF DISTRESS OR SOB. PATIENT IS ALERT AND ORIENTED, ABLE TO EXPRESS NEEDS, AND ASK FOR ASSISTANCE. ALL NEEDS MET DURING SHIFT. CALL LIGHT IN REACH, BED IN LOWEST POSITION, AND WILL GIVE REPORT TO NIGHT NURSE.
[2018-04-29] MEDS ORDERED: buPROPion HCL 150 MG TABLET.SA PO ONE (19:30)
[2018-04-29 20:30] VITALS: BP_SYST 119
--- NOTE | 2018-04-29 20:30 | NUR ---
Opening notes Received pt AAOx4, VSS., afebrile. No s/s distress or discomfort noted. IVF infusing L. hand 22 clear, patent. Pt c/o 12/12 generalized pain. Will medicated for pain as needed. Jude SCDs in place. Call light/items within reach. To monitor.
--- NOTE | 2018-04-29 22:35 | NUR ---
Rounds Pt asleep. No s/s distress noted. Call light/items within reach. Safety measures in place. To monitor.
--- NOTE | 2018-04-30 00:25 | NUR ---
Rounds Pt asleep, no s/s distress noted. Safety measures in place. Call light within reach. To monitor.
[2018-04-30] MEDS: NACL 0.9% 1,000 ML IV SCH ×3 (00:30→20:52)
[2018-04-30] MEDS: HYDROcodone/ACETAMIN 5-325 MG TAB (NORCO/ VICODIN) PO PRN ×2 (04:34→20:51)
--- NOTE | 2018-04-30 04:34 | NUR ---
Pain mgmt Pt alert, awake, no s/s distress noted. Pt c/o generalized pain 8/10. Medicated with Kathryn 2 tabs as needed. IVF infusing as ordered L. hand 22G clear, patent. Call light within reach. To monitor.
[2018-04-30] MEDS: PANTOPRAZOLE SODIUM 40 MG TAB PO SCH (05:56)
[2018-04-30] MEDS: LORazepam 2 MG/ML VIAL IVP PRN (05:57)
--- NOTE | 2018-04-30 06:10 | NUR ---
Closing notes Pt alert, awake. No s/s distress noted. Pt requested Ativan. Medicated with Ativan 0.25mg IVP as needed. IVF infusing as ordered on L. hand 22G clear, patent. Call light within reach. To endorse to AM nurse.
[2018-04-30 08:00] VITALS: BP_SYST 146
--- NOTE | 2018-04-30 08:00 | NUR ---
initial notes rec patient awake alert and eating breakfast. ivf on the l hand intact. no infiltration noted. resp easy and unlabored, no sob noted. bed to the lowest position and side rails up and locked.call light within reached and knows when to call for assistance.
--- NOTE | 2018-04-30 08:55 | NUR ---
Discharge Planning: DCP followed up with [facility] (f [phone] p [phone]); [facility] stated not able to resume service, No nurse will return to patients home because of the condition of the home. DCP to follow up with CM.
[2018-04-30] MEDS: GABAPENTIN 100 MG CAPSULE PO SCH ×2 (09:10→20:51)
[2018-04-30] MEDS: MULTIVITAMINS TAB 1 TABLET PO SCH (09:10)
[2018-04-30] MEDS: LEVOFLOXACIN 500 MG/D5W 100 ML IV SCH (09:10)
[2018-04-30] MEDS: buPROPion HCL 150 MG TABLET.SA PO SCH (09:11)
[2018-04-30] MEDS: chlordiazePOXIDE HCL 25 MG CAPSULE PO SCH ×2 (09:11→20:51)
--- NOTE | 2018-04-30 10:00 | NUR ---
rounds went outside with kenrick bowers and smoke and cherry [place]. pt was back and went to sleep after. due meds were given as ordered.
--- NOTE | 2018-04-30 10:30 | NUR ---
DC Planning: s/w pt re dep, the pt stated my father and my mother 3 days, I am very depressed and has nothing to say. I can not afford the pay at nursing facility. I have nothing to say. SARATH Yo made aware.
[2018-04-30 12:00] VITALS: BP_SYST 160
--- NOTE | 2018-04-30 12:00 | NUR ---
rounds pt was nauseated and stated he vomited. dr swanson was called and awaiting to call back.
--- NOTE | 2018-04-30 12:10 | NUR ---
ATTENDING MD DR ALCANTAR WAS PAGED DIRECTLY, RE: REQUEST FOR ZOFRAN. PT IS VOMITING.
[2018-04-30] MEDS ORDERED: ONDANSETRON HCL 4 MG/2 ML VIAL IVP PRN (12:15)
--- NOTE | 2018-04-30 14:00 | NUR ---
rounds dr swanson came and ordered re nausea med and was given. no sob noted. call light within reached.
[2018-04-30 16:00] VITALS: BP_SYST 149
--- NOTE | 2018-04-30 18:20 | NUR ---
rounds dr swanson is here and relayed that patient is forcing self to vomit. no vomitus noted but saliva noted form the basin. refused to eat dinner will endorsed to next shift and observed patient. no sob noted. call light within reached
--- NOTE | 2018-04-30 19:00 | NUR ---
closing notes pattient is asleep at this time. no osb noted. bed to the lowest position and side rails up and locked. call light within reached and knows when to call for assistance.
[2018-04-30 19:10] VITALS: BP_SYST 137
--- NOTE | 2018-04-30 19:10 | NUR ---
OPENING NOTE RECEIVED ENDORSEMENT REPORT FROM DAY SHIFT NURSE TARI AT BEDSIDE. PT IS AOX4, RESTING IN BED COMFORTABLY. CHEST RISE EVEN AND UNLABORED. NO RESPIRATORY DISTRESS NOTED. PT DENIES PAIN AT THIS TIME. IV ON LEFT HAND. IV SITE CLEAN, DRY AND INTACT. IVF INFUSING WELL. PT ORIENTED TO HOSPITAL ROOM. PT VERBALIZED UNDERSTANDING. INSTRUCTED PT TO USE CALL LIGHT/ ROOM PHONE TO CALL FOR ASSISTANCE. SAFETY MEASURES IN PLACE CALL LIGHT/ ROOM PHONE WITHIN REACH, BED IN LOWEST POSITION, BED WHEELS LOCKED, SIDE RAILS UP X3, BED ALARM ON. WILL CONTINUE TO MONITOR PT AND CONTINUE POC.
--- NOTE | 2018-04-30 20:58 | NUR ---
MED PASS PT RESTING IN BED COMFORTABLY. CHEST RISE EVEN AND UNLABORED. NO RESPIRATORY DISTRESS NOTED. VITAL SIGNS WNL. PT REPORTS 9/10 ABD PAIN. PRN NORCO 2 TABS ADMINISTERED FOR SEVERE PAIN, PT TOLERATED WELL. SCHEDULED MEDICATIONS ADMINISTERED ORDERED. NO OTHER NEEDS AT THIS TIME. SAFETY MEASURES IN PLACE. WILL CONTINUE TO MONITOR PT AND CONTINUE POC.
--- NOTE | 2018-04-30 22:40 | NUR ---
RN ROUNDS PT RESTING IN BED COMFORTABLY WITH EYES CLOSED. CHEST RISE EVEN AND UNLABORED. NO RESPIRATORY DISTRESS NOTED. NO S/S OF PAIN NOTED. NO NEEDS AT THIS TIME. SAFETY MEASURES IN PLACE. WILL CONTINUE TO MONITOR PT AND CONTINUE POC.
[2018-05-01] VITALS: BP_SYST 118
--- NOTE | 2018-05-01 00:36 | NUR ---
SD CARE ENDORSED TO LYUDMILA RUBIN
--- NOTE | 2018-05-01 00:45 | NUR ---
Continuity of care Received pt for continuity of care. Pt asleep. No s/s distress noted. IVF infusing as ordered L. hand no s/s infiltration noted. Call light within reach. To monitor.
--- NOTE | 2018-05-01 03:10 | NUR ---
Rounds Pt asleep, no s/s distress noted. IVF infusing as ordered. Call light within reach. To monitor.
--- NOTE | 2018-05-01 05:05 | NUR ---
Rounds Pt asleep, no s/s distress or discomfort noted. Call light within reach. To monitor.
[2018-05-01] MEDS: HYDROcodone/ACETAMIN 5-325 MG TAB (NORCO/ VICODIN) PO PRN (05:54)
--- NOTE | 2018-05-01 06:10 | NUR ---
Closing notes Pt awake. No s/s distress noted. Pt c/o 8 pain. Medicated with [place] 2 tabs PO as needed. IVF infusing as ordered L. hand no s/s infiltration. Call light/items within reach. To endorse to AM nurse.
[2018-05-01] MEDS: PANTOPRAZOLE SODIUM 40 MG TAB PO SCH (06:24)
--- NOTE | 2018-05-01 08:00 | NUR ---
initial notes rec pt awake alert with hob elevated. ivf infusing well on the l hand. no infiltration noted. denies pain at this time. resp easy and unlabored and no sob noted. bed to the lowest position and side rails up and locked. call light within reached and knows when to call for help.
--- NOTE | 2018-05-01 10:00 | NUR ---
rounds due meds given as ordered and went to sleep after. no acute distress noted. call light within reached.
[2018-05-01] MEDS: LEVOFLOXACIN 500 MG/D5W 100 ML IV SCH (10:23)
[2018-05-01] MEDS: chlordiazePOXIDE HCL 25 MG CAPSULE PO SCH (10:23)
[2018-05-01] MEDS: GABAPENTIN 100 MG CAPSULE PO SCH (10:24)
[2018-05-01] MEDS: buPROPion HCL 150 MG TABLET.SA PO SCH (10:24)
[2018-05-01] MEDS: MULTIVITAMINS TAB 1 TABLET PO SCH (10:24)
--- NOTE | 2018-05-01 12:21 | NUR ---
notes eating lunch at this time. call light within reached, awaiting for dr swanson and wants to go home.
[2018-05-01 12:34] VITALS: BP_SYST 127
--- NOTE | 2018-05-01 13:30 | NUR ---
PT note Patient refusing therapy at this time. Nursing made aware. Will try again tomorrow.
--- NOTE | 2018-05-01 14:00 | NUR ---
rounds asleep when rounds made. no acute distress noted. call light within reached.
--- NOTE | 2018-05-01 16:00 | NUR ---
rounds ambul;ated with min assists to the br.no sob noted. awaiting for dr swanson and would like to go home. call light within reached.
[2018-05-01 16:50] VITALS: BP_SYST 122
[2018-05-01 17:41] VITALS: BP_SYST 120
--- NOTE | 2018-05-01 18:25 | NUR ---
closing notes pt was discharged after seen by dr swanson. ivl and id band was removed, instructed re appt with pmd and meds to take at home. pt is stable, needs attended and no sob noted. requested a wheelchair and will call for a lyft to go home.
== END 2018-05-01 18:25 | disposition home or self-care (01) | DRG 177 ==
LOC: SED 20:41 → SMU 21:30
PROVIDERS: ADMIT Internal Medicine; ATTEND Internal Medicine
DX: J69.0 Pneumonitis due to inhalation of food and vomit (principal); K85.90 Acute pancreatitis without necrosis or infection, unspecified; F10.239 Alcohol dependence with withdrawal, unspecified; I48.91 Unspecified atrial fibrillation; F32.9 Major depressive disorder, single episode, unspecified; F10.229 Alcohol dependence with intoxication, unspecified; F17.210 Nicotine dependence, cigarettes, uncomplicated; K70.30 Alcoholic cirrhosis of liver without ascites; J45.909 Unspecified asthma, uncomplicated; G47.30 Sleep apnea, unspecified; Z79.899 Other long term (current) drug therapy
CPT/HCPCS: 36415; 71045; 71260-TC; 80048; 80053; 82150-TC; 82550-TC; 83690-TC; 83735-TC; 83874; 83880; 84100-TC; 84484; 85025; 85379; 85610-TC; 87081; 93005; 94640; 97116-GP; 97163; 97530-GP; G0482; J1956; J2060; J2405; J7030; J7620; Q9967

== ENCOUNTER 2018-05-26 17:05 | Emergency (ER) | payer OTHER ==
[~2018-05-26] VITALS: Ht 175.3 cm; Wt 86.2 kg
[2018-05-26 17:15] VITALS: BP_SYST 111
[2018-05-26] MEDS ORDERED: NACL 0.9% 1,000 ML IV ONE (17:45)
[2018-05-26] MEDS ORDERED: FAMOTIDINE PF 20 MG/2 ML VIAL IVP ONE (17:45)
[2018-05-26 17:53] LABS: BASOPHILS # (AUTO) 0.1 K/uL (0.0-0.2); EOSINOPHILS # (AUTO) 0.1 K/uL (0.0-0.4); EOSINOPHILS % (AUTO) 0.9 % (0.0-4.0); HEMATOCRIT 38.9 % (36-54); HEMOGLOBIN 12.9 g/dL (14.0-18.0); LYMPHOCYTES # (AUTO) 1.6 K/uL (1.0-5.5); LYMPHOCYTES % (AUTO) 17.6 % (20.5-51.5); MEAN CORPUSCULAR HEMOGLOBIN 31 pg (27-31); MEAN CORPUSCULAR HGB CONC 33 % (32-36); MEAN CORPUSCULAR VOLUME 93 fL (79.0-98.0); MONOCYTES % (AUTO) 11.3 % (1.7-9.3); NEUTROPHILS % (AUTO) 69.2 % (40.0-70.0); PLATELET COUNT (AUTO) 240 K/uL (130-430); RED CELL DISTRIBUTION WIDTH 17.5 % (9.0-15.0); WHITE BLOOD COUNT (AUTO) 8.8 K/uL (4.8-10.8)
[2018-05-26 18:06] LABS: CALCIUM 8.9 mg/dL (8.4-11.0); CREATININE 1.04 mg/dL (0.55-1.30); POTASSIUM 3.9 mmol/L (3.5-5.1)
[2018-05-26 18:07] LABS: PROTHROMBIN TIME 10.5 SECS (9.5-12.5)
[2018-05-26 18:14] LABS: ALBUMIN 3.6 g/dL (3.4-4.8); TOTAL BILIRUBIN 1.7 mg/dL (0.0-1.0)
[2018-05-26] MEDS ORDERED: ONDANSETRON HCL 4 MG/2 ML VIAL IVP ONE (18:30)
[2018-05-26] MEDS ORDERED: LORazepam 2 MG/ML VIAL (FOR ER USE) IVP ONE (18:30)
[2018-05-26 19:58] VITALS: BP_SYST 111
== END 2018-05-26 19:58 | disposition home or self-care (01) ==
LOC: SED 17:05
DX: F10.20 Alcohol dependence, uncomplicated (principal); I48.91 Unspecified atrial fibrillation; I10 Essential (primary) hypertension; Z79.899 Other long term (current) drug therapy; Y90.0 Blood alcohol level of less than 20 mg/100 ml
CPT/HCPCS: 36415; 80053; 82140; 83690; 85025; 85610; 93005; 96374; 96375; 99284; G0482; J2060; J2405; J3490; J7030

== ENCOUNTER 2018-07-01 10:23 | Inpatient (IN) | payer OTHER ==
[~2018-07-01] VITALS: Ht 167.6 cm; Wt 72.6 kg
[2018-07-01 10:25] VITALS: BP_SYST 123
[2018-07-01] MEDS ORDERED: MORPHINE 4 MG/ML INJ. SYRINGE ONE (12:10)
[2018-07-01] MEDS ORDERED: DILTIAZEM HCL 25 MG/5 ML VIAL ONE (12:10)
[2018-07-01] MEDS ORDERED: NACL 0.9% 1,000 ML IV ONE (13:00)
[2018-07-01 13:35] LABS: HEMATOCRIT 36.6 % (36-54); HEMOGLOBIN 12.3 g/dL (14.0-18.0); MEAN CORPUSCULAR HEMOGLOBIN 31 pg (27-31); MEAN CORPUSCULAR VOLUME 91 fL (79.0-98.0); RED BLOOD CELL COUNT(AUTO) 4.03 MIL/uL (4.2-6.2); WHITE BLOOD COUNT (AUTO) 10.1 K/uL (4.8-10.8)
[2018-07-01 13:36] LABS: MEAN CORPUSCULAR HGB CONC 34 % (32-36); PLATELET COUNT (AUTO) 173 K/uL (130-430); RED CELL DISTRIBUTION WIDTH 16.1 % (9.0-15.0)
[2018-07-01 13:37] LABS: BASOPHILS # (AUTO) 0.1 K/uL (0.0-0.2); BASOPHILS % (AUTO) 0.6 % (0.0-2.0); EOSINOPHILS % (AUTO) 0.4 % (0.0-4.0); LYMPHOCYTES % (AUTO) 19.5 % (20.5-51.5); MONOCYTES # (AUTO) 0.7 K/uL (0.0-1.0); MONOCYTES % (AUTO) 6.5 % (1.7-9.3); NEUTROPHILS # (AUTO) 7.4 K/uL (1.8-7.7)
[2018-07-01 13:45] LABS: CALCIUM 8.1 mg/dL (8.4-11.0); CREATININE 0.89 mg/dL (0.55-1.30); POTASSIUM 4.2 mmol/L (3.5-5.1)
[2018-07-01] MEDS ORDERED: LORazepam 2 MG/ML VIAL (FOR ER USE) IVP ONE (13:45)
[2018-07-01] MEDS ORDERED: ONDANSETRON HCL 4 MG/2 ML VIAL IVP ONE (13:45)
[2018-07-01] MEDS ORDERED: MORPHINE 4 MG/ML INJ. SYRINGE IVP ONE (13:45)
[2018-07-01 13:50] LABS: ALBUMIN 3.3 g/dL (3.4-4.8)
[2018-07-01] MEDS ORDERED: ONDANSETRON HCL 4 MG/2 ML VIAL IVP PRN (15:30)
[2018-07-01] MEDS ORDERED: HYDROcodone/ACETAMIN 5-325 MG TAB (NORCO/ VICODIN) PO PRN (15:30)
[2018-07-01] MEDS ORDERED: ACETAMINOPHEN 325 MG TABLET PO PRN (15:30)
[2018-07-01 15:39] VITALS: BP_SYST 135
[2018-07-01] MEDS: D5/0.45 NS 1,000 ML IV SCH (15:50)
[2018-07-01] MEDS: HYDROcodone/ACETAMIN 10-325 MG TAB PO PRN (16:00)
[2018-07-01] MEDS: LORazepam 2 MG/ML VIAL IVP PRN (16:01)
[2018-07-01 20:00] VITALS: BP_SYST 135
[2018-07-01] MEDS: GABAPENTIN 100 MG CAPSULE PO SCH (20:18)
[2018-07-01] MEDS: chlordiazePOXIDE HCL 25 MG CAPSULE PO SCH (20:18)
[2018-07-01 23:00] VITALS: BP_SYST 127
[2018-07-02] MEDS: D5/0.45 NS 1,000 ML IV SCH ×3 (00:40→20:31)
[2018-07-02 04:00] VITALS: BP_SYST 131
[2018-07-02] MEDS: HYDROcodone/ACETAMIN 10-325 MG TAB PO PRN ×4 (04:35→20:23)
[2018-07-02] MEDS: LORazepam 2 MG/ML VIAL IVP PRN (05:06)
[2018-07-02 07:21] LABS: CALCIUM 8.2 mg/dL (8.4-11.0); CREATININE 0.83 mg/dL (0.55-1.30); POTASSIUM 3.6 mmol/L (3.5-5.1)
[2018-07-02 07:45] LABS: HEMATOCRIT 33.5 % (36-54); HEMOGLOBIN 11.4 g/dL (14.0-18.0); RED BLOOD CELL COUNT(AUTO) 3.69 MIL/uL (4.2-6.2); WHITE BLOOD COUNT (AUTO) 6.2 K/uL (4.8-10.8)
[2018-07-02 07:46] LABS: BASOPHILS % (AUTO) 0.4 % (0.0-2.0); EOSINOPHILS # (AUTO) 0.2 K/uL (0.0-0.4); EOSINOPHILS % (AUTO) 2.8 % (0.0-4.0); LYMPHOCYTES # (AUTO) 1.5 K/uL (1.0-5.5); LYMPHOCYTES % (AUTO) 23.8 % (20.5-51.5); MEAN CORPUSCULAR HEMOGLOBIN 31 pg (27-31); MEAN CORPUSCULAR HGB CONC 34 % (32-36); MEAN CORPUSCULAR VOLUME 91 fL (79.0-98.0); MONOCYTES # (AUTO) 0.7 K/uL (0.0-1.0); MONOCYTES % (AUTO) 10.9 % (1.7-9.3); NEUTROPHILS # (AUTO) 3.9 K/uL (1.8-7.7); NEUTROPHILS % (AUTO) 62.1 % (40.0-70.0); PLATELET COUNT (AUTO) 122 K/uL (130-430); RED CELL DISTRIBUTION WIDTH 16.1 % (9.0-15.0)
[2018-07-02 08:13] VITALS: BP_SYST 133
[2018-07-02] MEDS: MULTIVITAMINS TAB 1 TABLET PO SCH (08:36)
[2018-07-02] MEDS: GABAPENTIN 100 MG CAPSULE PO SCH ×2 (08:36→20:19)
[2018-07-02] MEDS: THIAMINE HCL 100 MG TABLET PO SCH (08:37)
[2018-07-02] MEDS: chlordiazePOXIDE HCL 25 MG CAPSULE PO SCH ×3 (08:37→20:19)
[2018-07-02] MEDS: FOLIC ACID 1 MG TABLET PO SCH (08:37)
[2018-07-02] MEDS ORDERED: NICOTINE 21 MG/24 HR PATCH.TD24 TD ONE (12:00)
[2018-07-02 12:02] VITALS: BP_SYST 123
[2018-07-02 16:02] VITALS: BP_SYST 119
[2018-07-02 20:17] VITALS: BP_SYST 114
[2018-07-02] MEDS ORDERED: SOTALOL (AF) 80 MG TABLET PO SCH (21:00)
[2018-07-02] MEDS: APIXABAN 2.5 MG TABLET PO SCH (22:01)
[2018-07-02] MEDS ORDERED: SOTALOL HCL 80 MG TABLET ONE (22:05)
[2018-07-03 00:40] VITALS: BP_SYST 112
[2018-07-03] MEDS: HYDROcodone/ACETAMIN 10-325 MG TAB PO PRN ×4 (01:46→22:27)
[2018-07-03] MEDS: D5/0.45 NS 1,000 ML IV SCH ×2 (04:56→20:16)
[2018-07-03 07:39] VITALS: BP_SYST 124
[2018-07-03 07:47] LABS: HEMATOCRIT 33.2 % (36-54); MEAN CORPUSCULAR HEMOGLOBIN 30 pg (27-31); MEAN CORPUSCULAR HGB CONC 33 % (32-36); MEAN CORPUSCULAR VOLUME 91 fL (79.0-98.0); NEUTROPHILS % (AUTO) 57.3 % (40.0-70.0); PLATELET COUNT (AUTO) 109 K/uL (130-430); RED BLOOD CELL COUNT(AUTO) 3.63 MIL/uL (4.2-6.2); RED CELL DISTRIBUTION WIDTH 15.8 % (9.0-15.0); WHITE BLOOD COUNT (AUTO) 5.9 K/uL (4.8-10.8)
[2018-07-03 07:48] LABS: BASOPHILS % (AUTO) 0.3 % (0.0-2.0); EOSINOPHILS # (AUTO) 0.3 K/uL (0.0-0.4); EOSINOPHILS % (AUTO) 5.4 % (0.0-4.0); LYMPHOCYTES # (AUTO) 1.6 K/uL (1.0-5.5); LYMPHOCYTES % (AUTO) 27.8 % (20.5-51.5); MONOCYTES # (AUTO) 0.5 K/uL (0.0-1.0); MONOCYTES % (AUTO) 9.2 % (1.7-9.3); NEUTROPHILS # (AUTO) 3.4 K/uL (1.8-7.7)
[2018-07-03 08:06] LABS: POTASSIUM 4.1 mmol/L (3.5-5.1)
[2018-07-03 08:07] LABS: CALCIUM 8.4 mg/dL (8.4-11.0); CREATININE 0.74 mg/dL (0.55-1.30); TOTAL BILIRUBIN 1.5 mg/dL (0.0-1.0)
[2018-07-03] MEDS: MULTIVITAMINS TAB 1 TABLET PO SCH (08:57)
[2018-07-03] MEDS: FOLIC ACID 1 MG TABLET PO SCH (08:57)
[2018-07-03] MEDS: THIAMINE HCL 100 MG TABLET PO SCH (08:58)
[2018-07-03] MEDS: chlordiazePOXIDE HCL 25 MG CAPSULE PO SCH ×3 (08:58→20:19)
[2018-07-03] MEDS: APIXABAN 2.5 MG TABLET PO SCH ×2 (08:58→20:17)
[2018-07-03] MEDS: GABAPENTIN 100 MG CAPSULE PO SCH ×2 (08:59→20:19)
[2018-07-03] MEDS: NICOTINE 21 MG/24 HR PATCH.TD24 TD SCH (08:59)
[2018-07-03] MEDS ORDERED: SOTALOL (AF) 80 MG TABLET PO SCH (09:30)
[2018-07-03] MEDS ORDERED: SOTALOL HCL 80 MG TABLET PO SCH (09:30)
[2018-07-03] MEDS: SOTALOL HCL 80 MG TABLET PO SCH ×2 (10:41→20:19)
[2018-07-03 11:34] VITALS: BP_SYST 120
[2018-07-03 16:06] VITALS: BP_SYST 115
[2018-07-03 20:15] VITALS: BP_SYST 107
[2018-07-04 00:11] VITALS: BP_SYST 121
[2018-07-04] MEDS: D5/0.45 NS 1,000 ML IV SCH ×2 (03:00→04:33)
[2018-07-04] MEDS: HYDROcodone/ACETAMIN 10-325 MG TAB PO PRN ×2 (03:01→07:58)
[2018-07-04 07:09] LABS: CALCIUM 8.5 mg/dL (8.4-11.0); CREATININE 0.74 mg/dL (0.55-1.30); POTASSIUM 3.7 mmol/L (3.5-5.1)
[2018-07-04 07:27] LABS: BASOPHILS % (AUTO) 0.4 % (0.0-2.0); EOSINOPHILS % (AUTO) 6.1 % (0.0-4.0); HEMATOCRIT 33.4 % (36-54); HEMOGLOBIN 11.3 g/dL (14.0-18.0); LYMPHOCYTES % (AUTO) 30.3 % (20.5-51.5); MEAN CORPUSCULAR HEMOGLOBIN 31 pg (27-31); MEAN CORPUSCULAR HGB CONC 34 % (32-36); MEAN CORPUSCULAR VOLUME 91 fL (79.0-98.0); MONOCYTES # (AUTO) 0.6 K/uL (0.0-1.0); MONOCYTES % (AUTO) 8.5 % (1.7-9.3); NEUTROPHILS # (AUTO) 3.6 K/uL (1.8-7.7); NEUTROPHILS % (AUTO) 54.7 % (40.0-70.0); PLATELET COUNT (AUTO) 95 K/uL (130-430); RED BLOOD CELL COUNT(AUTO) 3.66 MIL/uL (4.2-6.2); RED CELL DISTRIBUTION WIDTH 15.8 % (9.0-15.0); WHITE BLOOD COUNT (AUTO) 6.6 K/uL (4.8-10.8)
[2018-07-04 07:28] LABS: EOSINOPHILS # (AUTO) 0.4 K/uL (0.0-0.4)
[2018-07-04] MEDS: chlordiazePOXIDE HCL 25 MG CAPSULE PO SCH ×2 (07:56→15:11)
[2018-07-04] MEDS: APIXABAN 2.5 MG TABLET PO SCH (07:56)
[2018-07-04] MEDS: FOLIC ACID 1 MG TABLET PO SCH (07:56)
[2018-07-04] MEDS: MULTIVITAMINS TAB 1 TABLET PO SCH (07:56)
[2018-07-04] MEDS: GABAPENTIN 100 MG CAPSULE PO SCH (07:57)
[2018-07-04] MEDS: THIAMINE HCL 100 MG TABLET PO SCH (07:57)
[2018-07-04] MEDS: SOTALOL HCL 80 MG TABLET PO SCH (08:10)
[2018-07-04] MEDS: NICOTINE 21 MG/24 HR PATCH.TD24 TD SCH (08:10)
[2018-07-04 08:51] VITALS: BP_SYST 127
[2018-07-04 11:24] VITALS: BP_SYST 107
[2018-07-04 14:41] VITALS: BP_SYST 105
[2018-07-04 15:12] VITALS: BP_SYST 141
== END 2018-07-04 16:50 | disposition home or self-care (01) | DRG 563 ==
LOC: SED 10:23 → STU 14:47 → SMU 07-04 08:33
PROVIDERS: ADMIT Preventive Medicine Preventive Medicine/Occupational Environmental Medicine; ATTEND Preventive Medicine Preventive Medicine/Occupational Environmental Medicine
DX: S62.511A Displaced fracture of proximal phalanx of right thumb, initial encounter for closed fracture (principal); F10.239 Alcohol dependence with withdrawal, unspecified; S42.202A Unspecified fracture of upper end of left humerus, initial encounter for closed fracture; F17.203 Nicotine dependence unspecified, with withdrawal; I48.91 Unspecified atrial fibrillation; E88.09 Other disorders of plasma-protein metabolism, not elsewhere classified; D64.9 Anemia, unspecified; E83.51 Hypocalcemia; K74.60 Unspecified cirrhosis of liver; Z87.81 Personal history of (healed) traumatic fracture; I11.9 Hypertensive heart disease without heart failure
CPT/HCPCS: 36415; 71045; 80048; 80053; 83880; 84484; 85025; 93005; 93306; 93923; 97110-GP; 97116-GP; 99285; G0378; J2060; J2270; J2405; J3490; J7030

== ENCOUNTER 2018-07-18 05:25 | Emergency (ER) | payer OTHER ==
[~2018-07-18] VITALS: Ht 167.6 cm; Wt 72.6 kg
[2018-07-18 05:30] VITALS: BP_SYST 138
--- NOTE | 2018-07-18 05:30 | NUR ---
Patient to ER bed 8 to gown for evaluation. Side rails up.
--- NOTE | 2018-07-18 05:35 | NUR ---
Pt C/O Shortness of breath x 12 hours. Pt states she had consumed a small bottle of rum around the same time the symptoms began. Pt denies any chest pain, N/V/D or any other symptoms at this time. Pt has an elevated heart rate upon arrival to the ER, O2 sat is 98% on room air. Doug continue to monitor.
--- NOTE | 2018-07-18 05:50 | NUR ---
ER Dr. Rich at bedside examining patient.
[2018-07-18] MEDS ORDERED: NACL 0.9% 1,000 ML IV ONE (05:52)
[2018-07-18] MEDS ORDERED: LORazepam 2 MG/ML VIAL (FOR ER USE) IVP ONE (06:00)
--- NOTE | 2018-07-18 06:33 | NUR ---
Pt has been medicated and is resting quietly in bed, no acute distress noted at this time. Will continue to monitor.
[2018-07-18 06:42] LABS: WHITE BLOOD COUNT (AUTO) 12.8 K/uL (4.8-10.8)
[2018-07-18 06:43] LABS: BASOPHILS # (AUTO) 0.1 K/uL (0.0-0.2); BASOPHILS % (AUTO) 0.5 % (0.0-2.0); EOSINOPHILS % (AUTO) 0.1 % (0.0-4.0); HEMATOCRIT 38.4 % (36-54); HEMOGLOBIN 12.8 g/dL (14.0-18.0); LYMPHOCYTES # (AUTO) 1.2 K/uL (1.0-5.5); LYMPHOCYTES % (AUTO) 9.6 % (20.5-51.5); MEAN CORPUSCULAR HEMOGLOBIN 30 pg (27-31); MEAN CORPUSCULAR HGB CONC 33 % (32-36); MEAN CORPUSCULAR VOLUME 91 fL (79.0-98.0); MONOCYTES # (AUTO) 0.8 K/uL (0.0-1.0); MONOCYTES % (AUTO) 6.5 % (1.7-9.3); NEUTROPHILS # (AUTO) 10.7 K/uL (1.8-7.7); NEUTROPHILS % (AUTO) 83.3 % (40.0-70.0); PLATELET COUNT (AUTO) 302 K/uL (130-430); RED BLOOD CELL COUNT(AUTO) 4.22 MIL/uL (4.2-6.2); RED CELL DISTRIBUTION WIDTH 16.9 % (9.0-15.0)
[2018-07-18 06:59] LABS: CREATININE 0.92 mg/dL (0.55-1.30); POTASSIUM 3.3 mmol/L (3.5-5.1)
[2018-07-18] MEDS ORDERED: KETOROLAC TROMETHAMINE 30 MG VIAL IVP ONE (07:00)
[2018-07-18 07:04] LABS: ALBUMIN 3.2 g/dL (3.4-4.8)
--- NOTE | 2018-07-18 07:21 | NUR ---
Report from Nicholas COREAS
[2018-07-18] MEDS ORDERED: KCL 20 mEq in 100 mL (PREMIX) 100 ML IV ONE (07:30)
[2018-07-18 08:10] VITALS: BP_SYST 129
--- NOTE | 2018-07-18 08:10 | NUR ---
Patient given written and verbal discharge instructions and verbalizes understanding. ER MD discussed with patient the results and treatment provided. Patient in stable condition. ID arm band removed. IV catheter removed intact and dressing applied, no active bleeding. No Rx given. Patient educated on pain management and to follow up with PMD. Pain Scale 2/10 left hand cramp tolerable for patient. Opportunity for questions provided and answered. Medication side effect fact sheet provided.
== END 2018-07-18 08:10 | disposition home or self-care (01) ==
LOC: SED 05:25
DX: E86.0 Dehydration (principal); F10.239 Alcohol dependence with withdrawal, unspecified; I48.91 Unspecified atrial fibrillation; I10 Essential (primary) hypertension; Z79.899 Other long term (current) drug therapy; Y90.6 Blood alcohol level of 120-199 mg/100 ml
CPT/HCPCS: 36415; 71045; 80053; 85025; 96361; 96374; 96375; 99284; G0482; J1885; J2060; J3480; J7030

== ENCOUNTER 2018-07-27 12:36 | Emergency (ER) | payer OTHER ==
[~2018-07-27] VITALS: Ht 167.6 cm; Wt 72.6 kg
[2018-07-27 12:40] VITALS: BP_SYST 149
--- NOTE | 2018-07-27 12:51 | NUR ---
Note lynn in EDM - 07/27/18 at 1252 by MARY Patient to ER bed 7 to monster for evaluation. Side rails up. Report given to Francisca ANDRADE
--- NOTE | 2018-07-27 12:51 | NUR ---
Patient to ER bed 07 to gown for evaluation. Side rails up.
--- NOTE | 2018-07-27 13:05 | NUR ---
Patient arrived via [facility] ambulance, AAOx4. Patient c/c of shortness of breath and generalized weakness. Patient states he "fell off the wagon" last night. He is having pain everywhere, and is asking for his gabapentin as the pain is nerve pain in his feet. Patient states what made him call the ambulance is because he has decreased strength, increased heart rate, and increased respiratory rate. Patient has history of anxiety, and last ativan dose was at 1100 with no relief. Patient also has pain to right pinky finger, feels "like it is broken." Finger has range of motion, patient states the knuckle feels more swollen. Patient states he has had increased stress related to the loss of his mother and father in this past year, and states he has support through a visiting nurse, who was supposed to come today, but called and said she was late.
[2018-07-27 13:26] LABS: HEMATOCRIT 36.2 % (36-54); HEMOGLOBIN 12.1 g/dL (14.0-18.0); LYMPHOCYTES % (AUTO) 31.2 % (20.5-51.5); MEAN CORPUSCULAR HEMOGLOBIN 31 pg (27-31); MEAN CORPUSCULAR HGB CONC 33 % (32-36); MEAN CORPUSCULAR VOLUME 91 fL (79.0-98.0); NEUTROPHILS % (AUTO) 46.5 % (40.0-70.0); PLATELET COUNT (AUTO) 151 K/uL (130-430); RED BLOOD CELL COUNT(AUTO) 3.97 MIL/uL (4.2-6.2); RED CELL DISTRIBUTION WIDTH 17.3 % (9.0-15.0); WHITE BLOOD COUNT (AUTO) 6.3 K/uL (4.8-10.8)
[2018-07-27 13:27] LABS: BASOPHILS % (AUTO) 0.8 % (0.0-2.0); EOSINOPHILS # (AUTO) 0.2 K/uL (0.0-0.4); EOSINOPHILS % (AUTO) 2.4 % (0.0-4.0); LYMPHOCYTES # (AUTO) 1.9 K/uL (1.0-5.5); MONOCYTES # (AUTO) 1.2 K/uL (0.0-1.0); MONOCYTES % (AUTO) 19.1 % (1.7-9.3); NEUTROPHILS # (AUTO) 2.9 K/uL (1.8-7.7)
[2018-07-27 13:29] LABS: CREATININE 0.85 mg/dL (0.55-1.30); POTASSIUM 3.6 mmol/L (3.5-5.1)
[2018-07-27 13:39] LABS: ALBUMIN 3.4 g/dL (3.4-4.8); TOTAL BILIRUBIN 0.4 mg/dL (0.0-1.0)
[2018-07-27] MEDS: NACL 0.9% 1,000 ML IV ONE (13:45)
[2018-07-27] MEDS: KETOROLAC TROMETHAMINE 30 MG VIAL IM ONE (16:17)
--- NOTE | 2018-07-27 17:25 | NUR ---
Dr Vasquez at bedside explaining results to patient
--- NOTE | 2018-07-27 18:00 | NUR ---
Patient given written and verbal discharge instructions and verbalizes understanding. ER MD discussed with patient the results and treatment provided. Patient in stable condition. ID arm band removed. IV catheter removed intact and dressing applied, no active bleeding. Rx of norco given. Patient educated on pain management and to follow up with PMD. Pain Scale 2. Opportunity for questions provided and answered. Medication side effect fact sheet provided.
[2018-07-27] MEDS: ACETAMINOPHEN 500 MG TABLET PO ONE (18:09)
--- NOTE | 2018-07-27 18:35 | NUR ---
Pt found to have left the room without informing staff.Pt no in treatment area,lobby and front lobby.Py appears to have left w/o falling.
--- NOTE | 2018-07-27 18:35 | NUR ---
Tanya bailey in [facility] - 07/27/18 at 1929 by AG Pt found to have
[2018-07-27 18:45] VITALS: BP_SYST 149
--- NOTE | 2018-07-27 18:45 | NUR ---
Pt advised to remain on gurney until able to walk with steady gait.Pt verbalized understanding. Pt is discharged will continue to monitor.
== END 2018-07-27 18:45 | disposition home or self-care (01) ==
LOC: SED 12:36
DX: S62.616A Displaced fracture of proximal phalanx of right little finger, initial encounter for closed fracture (principal); F10.129 Alcohol abuse with intoxication, unspecified; I48.91 Unspecified atrial fibrillation; I10 Essential (primary) hypertension; Z79.899 Other long term (current) drug therapy; W19.XXXA Unspecified fall, initial encounter; Y93.89 Activity, other specified; Y92.89 Other specified places as the place of occurrence of the external cause; Y99.8 Other external cause status
CPT/HCPCS: 36415; 71045; 73130; 80053; 83880; 84484; 85025; 93005; 96374; 99284; J1885; J7030

== ENCOUNTER 2018-08-04 16:12 | Inpatient (IN) | payer OTHER ==
[~2018-08-04] VITALS: Ht 167.6 cm; Wt 72.6 kg
[2018-08-04] VITALS (7 sets, daily range): BP systolic 117–145
[2018-08-04] MEDS ORDERED: LORazepam 2 MG/ML VIAL (FOR ER USE) IVP ONE (16:30)
[2018-08-04] MEDS ORDERED: NACL 0.9% 1,000 ML IV ONE (16:30)
[2018-08-04 16:35] LABS: HEMOGLOBIN 15.3 g/dL (14.0-18.0); RED BLOOD CELL COUNT(AUTO) 4.94 MIL/uL (4.2-6.2); WHITE BLOOD COUNT (AUTO) 10.4 K/uL (4.8-10.8)
[2018-08-04 16:36] LABS: HEMATOCRIT 44.7 % (36-54); LYMPHOCYTES % (AUTO) 26.4 % (20.5-51.5); MEAN CORPUSCULAR HEMOGLOBIN 31 pg (27-31); MEAN CORPUSCULAR HGB CONC 34 % (32-36); MEAN CORPUSCULAR VOLUME 91 fL (79.0-98.0); NEUTROPHILS % (AUTO) 63.5 % (40.0-70.0); PLATELET COUNT (AUTO) 379 K/uL (130-430); RED CELL DISTRIBUTION WIDTH 18.2 % (9.0-15.0)
[2018-08-04 16:37] LABS: BASOPHILS # (AUTO) 0.1 K/uL (0.0-0.2); BASOPHILS % (AUTO) 1.2 % (0.0-2.0); EOSINOPHILS # (AUTO) 0.2 K/uL (0.0-0.4); EOSINOPHILS % (AUTO) 1.9 % (0.0-4.0); LYMPHOCYTES # (AUTO) 2.7 K/uL (1.0-5.5); MONOCYTES # (AUTO) 0.7 K/uL (0.0-1.0); NEUTROPHILS # (AUTO) 6.6 K/uL (1.8-7.7)
[2018-08-04] MEDS ORDERED: METO25TA6 PO (16:43)
[2018-08-04] MEDS ORDERED: ALBMDI INH (16:43)
[2018-08-04] MEDS ORDERED: OMEP20CA10 PO (16:43)
[2018-08-04] MEDS ORDERED: ASPI-1155 PO (16:43)
[2018-08-04] MEDS ORDERED: LORA1TAB PO (16:43)
[2018-08-04] MEDS ORDERED: FOLI-43 PO (16:43)
[2018-08-04 16:44] LABS: CALCIUM 9.5 mg/dL (8.4-11.0); CREATININE 0.96 mg/dL (0.55-1.30); POTASSIUM 3.8 mmol/L (3.5-5.1)
[2018-08-04 16:47] LABS: PROTHROMBIN TIME 10.6 SECS (9.5-12.5)
[2018-08-04 16:49] LABS: ALBUMIN 4.3 g/dL (3.4-4.8); TOTAL BILIRUBIN 0.9 mg/dL (0.0-1.0)
[2018-08-04 17:12] LABS: CKMB RELATIVE INDEX 2.9 (0.0-2.9); CREATINE KINASE MB 14.8 ng/mL (0-3.6)
[2018-08-04] MEDS ORDERED: DILTIAZEM HCL 25 MG/5 ML VIAL IVP ONE ×2 (17:15→18:15)
[2018-08-04] MEDS ORDERED: KETOROLAC TROMETHAMINE 30 MG VIAL IVP ONE (17:15)
[2018-08-04] MEDS ORDERED: fentaNYL CITRATE/PF 100 MCG/2 ML AMP IVP ONE (18:00)
[2018-08-04] MEDS ORDERED: ASPIRIN 81 MG TAB.CHEW PO ONE (18:30)
[2018-08-04] MEDS ORDERED: DILTIAZEM HCL 125 MG in D5W 100 ML IV ONE (18:45)
[2018-08-04] MEDS ORDERED: DILTIAZEM HCL 125 MG/25 ML VIAL IV ONE (19:02)
[2018-08-04] MEDS ORDERED: chlordiazePOXIDE HCL 25 MG CAPSULE PO SCH ×2 (21:15→22:00)
[2018-08-04] MEDS ORDERED: ALBUTEROL MDI INHALATION 8 GM INH INH PRN (21:15)
[2018-08-04] MEDS: HYDROcodone/ACETAMIN 5-325 MG TAB (NORCO/ VICODIN) PO PRN (21:43)
[2018-08-04] MEDS ORDERED: ALBUTEROL SULFATE 0.083% 2.5 MG/3 ML VIAL.NEB INH PRN (21:45)
[2018-08-04] MEDS ORDERED: DILTIAZEM HCL 125 MG in D5W 100 ML IV SCH (22:00)
[2018-08-04] MEDS ORDERED: AMIODARONE HCL 200 MG TABLET PO SCH (22:00)
[2018-08-04] MEDS: LORazepam 1 MG TABLET PO PRN (22:38)
[2018-08-05] VITALS (24 sets, daily range): BP systolic 97–133
[2018-08-05] MEDS ORDERED: DILTIAZEM HCL 125 MG/25 ML VIAL IV ONE (03:22)
[2018-08-05] MEDS: LORazepam 1 MG TABLET PO PRN ×2 (05:56→12:51)
[2018-08-05] MEDS: HYDROcodone/ACETAMIN 5-325 MG TAB (NORCO/ VICODIN) PO PRN ×2 (05:56→11:20)
[2018-08-05] MEDS ORDERED: BANANA BAG 1 EA, MVI 10 ML, THIAMINE HCL 100 MG, FOLIC ACID 1 MG, MAGNESIUM SULFATE 1 G... IV SCH ×5 (08:00)
[2018-08-05] MEDS: chlordiazePOXIDE HCL 25 MG CAPSULE PO SCH ×3 (08:22→20:30)
[2018-08-05] MEDS: METOPROLOL TARTRATE 25 MG TABLET PO SCH ×2 (08:22→21:00)
[2018-08-05] MEDS: ASPIRIN 81 MG TAB.CHEW PO SCH (08:22)
[2018-08-05] MEDS: GABAPENTIN 100 MG CAPSULE PO SCH ×2 (08:23→20:28)
[2018-08-05] MEDS: AMIODARONE HCL 200 MG TABLET PO SCH ×2 (08:23→20:30)
[2018-08-05 10:51] LABS: CALCIUM 8.9 mg/dL (8.4-11.0); CREATININE 0.99 mg/dL (0.55-1.30); POTASSIUM 3.6 mmol/L (3.5-5.1)
[2018-08-05] MEDS ORDERED: NICOTINE 14 MG/24 HR PATCH.TD24 TD SCH (17:00)
[2018-08-05] MEDS ORDERED: NICOTINE 14 MG/24 HR PATCH.TD24 TD ONE (18:00)
[2018-08-06] VITALS (15 sets, daily range): BP systolic 90–139
[2018-08-06] MEDS: LORazepam 1 MG TABLET PO PRN (03:42)
[2018-08-06] MEDS: HYDROcodone/ACETAMIN 5-325 MG TAB (NORCO/ VICODIN) PO PRN ×3 (03:45→16:38)
[2018-08-06 05:44] LABS: CALCIUM 8.7 mg/dL (8.4-11.0); CREATININE 0.91 mg/dL (0.55-1.30); POTASSIUM 3.8 mmol/L (3.5-5.1)
[2018-08-06 05:59] LABS: ALBUMIN 3.2 g/dL (3.4-4.8); THYROID STIMULATING HORMONE 3.48 uIu/mL (0.36-3.74); TOTAL BILIRUBIN 1.4 mg/dL (0.0-1.0)
[2018-08-06 07:23] LABS: WHITE BLOOD COUNT (AUTO) 6.4 K/uL (4.8-10.8)
[2018-08-06 07:25] LABS: HEMATOCRIT 36.5 % (36-54); HEMOGLOBIN 12.2 g/dL (14.0-18.0); MEAN CORPUSCULAR HEMOGLOBIN 31 pg (27-31); MEAN CORPUSCULAR HGB CONC 33 % (32-36); MEAN CORPUSCULAR VOLUME 92 fL (79.0-98.0); NEUTROPHILS % (AUTO) 58.2 % (40.0-70.0); PLATELET COUNT (AUTO) 159 K/uL (130-430); RED BLOOD CELL COUNT(AUTO) 3.97 MIL/uL (4.2-6.2); RED CELL DISTRIBUTION WIDTH 17.5 % (9.0-15.0)
[2018-08-06 07:26] LABS: BASOPHILS % (AUTO) 0.6 % (0.0-2.0); EOSINOPHILS # (AUTO) 0.2 K/uL (0.0-0.4); EOSINOPHILS % (AUTO) 3.1 % (0.0-4.0); LYMPHOCYTES # (AUTO) 1.8 K/uL (1.0-5.5); MONOCYTES # (AUTO) 0.7 K/uL (0.0-1.0); MONOCYTES % (AUTO) 10.1 % (1.7-9.3); NEUTROPHILS # (AUTO) 3.7 K/uL (1.8-7.7)
[2018-08-06] MEDS: GABAPENTIN 100 MG CAPSULE PO SCH ×2 (08:35→20:24)
[2018-08-06] MEDS: FOLIC ACID 1 MG TABLET PO SCH (08:35)
[2018-08-06] MEDS: ASPIRIN 81 MG TAB.CHEW PO SCH (08:35)
[2018-08-06] MEDS: chlordiazePOXIDE HCL 25 MG CAPSULE PO SCH ×3 (08:35→20:24)
[2018-08-06] MEDS: THIAMINE HCL 100 MG TABLET PO SCH (08:35)
[2018-08-06] MEDS: AMIODARONE HCL 200 MG TABLET PO SCH ×3 (08:38→11:08)
[2018-08-06] MEDS: METOPROLOL TARTRATE 25 MG TABLET PO SCH ×2 (08:39→20:25)
[2018-08-06] MEDS: NICOTINE 14 MG/24 HR PATCH.TD24 TD SCH (08:56)
[2018-08-07] MEDS: LORazepam 1 MG TABLET PO PRN ×3 (00:42→20:40)
[2018-08-07 00:44] VITALS: BP_SYST 105
[2018-08-07] MEDS: chlordiazePOXIDE HCL 25 MG CAPSULE PO SCH ×3 (08:18→20:40)
[2018-08-07] MEDS: THIAMINE HCL 100 MG TABLET PO SCH (08:19)
[2018-08-07] MEDS: ASPIRIN 81 MG TAB.CHEW PO SCH (08:19)
[2018-08-07] MEDS: GABAPENTIN 100 MG CAPSULE PO SCH ×2 (08:19→20:40)
[2018-08-07] MEDS: FOLIC ACID 1 MG TABLET PO SCH (08:19)
[2018-08-07] MEDS: HYDROcodone/ACETAMIN 5-325 MG TAB (NORCO/ VICODIN) PO PRN ×2 (08:19→20:40)
[2018-08-07] MEDS: AMIODARONE HCL 200 MG TABLET PO SCH (08:20)
[2018-08-07] MEDS: METOPROLOL TARTRATE 25 MG TABLET PO SCH ×2 (08:20→20:41)
[2018-08-07 08:29] VITALS: BP_SYST 122
[2018-08-07] MEDS: NICOTINE 14 MG/24 HR PATCH.TD24 TD SCH (10:33)
[2018-08-07 12:52] VITALS: BP_SYST 102
[2018-08-07 17:34] VITALS: BP_SYST 108
[2018-08-07 19:55] VITALS: BP_SYST 110
[2018-08-08 02:06] VITALS: BP_SYST 112
[2018-08-08 07:49] VITALS: BP_SYST 92
[2018-08-08 09:00] VITALS: BP_SYST 92
[2018-08-08] MEDS: METOPROLOL TARTRATE 25 MG TABLET PO SCH (09:00)
[2018-08-08] MEDS: THIAMINE HCL 100 MG TABLET PO SCH (09:35)
[2018-08-08] MEDS: NICOTINE 14 MG/24 HR PATCH.TD24 TD SCH (09:35)
[2018-08-08] MEDS: chlordiazePOXIDE HCL 25 MG CAPSULE PO SCH (09:35)
[2018-08-08] MEDS: AMIODARONE HCL 200 MG TABLET PO SCH (09:36)
[2018-08-08] MEDS: FOLIC ACID 1 MG TABLET PO SCH (09:36)
[2018-08-08] MEDS: ASPIRIN 81 MG TAB.CHEW PO SCH (09:36)
[2018-08-08] MEDS: GABAPENTIN 100 MG CAPSULE PO SCH (09:36)
[2018-08-08] MEDS: LORazepam 1 MG TABLET PO PRN (09:37)
[2018-08-08] MEDS: HYDROcodone/ACETAMIN 5-325 MG TAB (NORCO/ VICODIN) PO PRN (09:40)
[2018-08-08] MEDS ORDERED: AMIO100T4 PO (12:29)
[2018-08-08 13:00] VITALS: BP_SYST 110
[2018-08-09] MEDS ORDERED: METOPROLOL SUCCINATE 25 MG TAB.SR.24H (TOPROL XL) PO SCH (09:00)
[2018-08-09] MEDS ORDERED: AMIODARONE HCL 200 MG TABLET PO SCH (09:00)
== END 2018-08-08 13:00 | disposition home or self-care (01) | DRG 558 ==
LOC: SED 16:12 → SIC 18:27 → STU 08-06 13:55
PROVIDERS: ADMIT Internal Medicine; ATTEND Internal Medicine
DX: M62.82 Rhabdomyolysis (principal); F10.229 Alcohol dependence with intoxication, unspecified; I48.0 Paroxysmal atrial fibrillation; Z60.2 Problems related to living alone; I10 Essential (primary) hypertension; G62.1 Alcoholic polyneuropathy; R54 Age-related physical debility; M25.512 Pain in left shoulder; W18.39XA Other fall on same level, initial encounter; Y93.89 Activity, other specified; S42.92XG Fracture of left shoulder girdle, part unspecified, subsequent encounter for fracture with delayed healing; Z79.810 Long term (current) use of selective estrogen receptor modulators (SERMs); Z79.899 Other long term (current) drug therapy; Y92.89 Other specified places as the place of occurrence of the external cause; Y99.8 Other external cause status
CPT/HCPCS: 36415; 71045; 73030; 80048; 80053; 82550-TC; 82553-TC; 83690-TC; 83880; 84443-TC; 84484; 85025; 85610-TC; 85730-TC; 87081; 93005; 94640; 96361; 96374; 96375; 96376; 99291; G0378; G0482; J1885; J2060; J3010; J3411; J3475; J3490; J7030; J7060; J7613

== ENCOUNTER 2018-08-18 00:27 | Emergency (ER) | payer OTHER ==
[~2018-08-18] VITALS: Ht 172.7 cm; Wt 72.6 kg
[~2018-08-18 00:27] MED LIST changes: +ALBMDI INH; +AMIO100T4 PO; +ASPI-1155 PO; +FOLI-43 PO; +LORA1TAB PO; +METO25TA6 PO; +OMEP20CA10 PO
[2018-08-18 00:37] VITALS: BP_SYST 130
[2018-08-18] MEDS ORDERED: ASPIRIN 81 MG TAB.CHEW PO ONE (01:30)
[2018-08-18] MEDS ORDERED: NITROGLYCERIN 0.4 MG TAB.SUBL SL ONE (01:30)
[2018-08-18 01:45] LABS: BASOPHILS # (AUTO) 0.1 K/uL (0.0-0.2); BASOPHILS % (AUTO) 0.8 % (0.0-2.0); EOSINOPHILS # (AUTO) 0.4 K/uL (0.0-0.4); EOSINOPHILS % (AUTO) 3.3 % (0.0-4.0); HEMOGLOBIN 12.1 g/dL (14.0-18.0); LYMPHOCYTES # (AUTO) 3.4 K/uL (1.0-5.5); MEAN CORPUSCULAR HEMOGLOBIN 31 pg (27-31); MEAN CORPUSCULAR HGB CONC 34 % (32-36); MEAN CORPUSCULAR VOLUME 92 fL (79.0-98.0); MONOCYTES # (AUTO) 0.8 K/uL (0.0-1.0); MONOCYTES % (AUTO) 7.1 % (1.7-9.3); NEUTROPHILS # (AUTO) 6.3 K/uL (1.8-7.7); NEUTROPHILS % (AUTO) 57.8 % (40.0-70.0); PLATELET COUNT (AUTO) 206 K/uL (130-430); RED BLOOD CELL COUNT(AUTO) 3.91 MIL/uL (4.2-6.2); RED CELL DISTRIBUTION WIDTH 18.4 % (9.0-15.0); WHITE BLOOD COUNT (AUTO) 10.8 K/uL (4.8-10.8)
[2018-08-18 01:56] LABS: CALCIUM 8.5 mg/dL (8.4-11.0); CREATININE 0.88 mg/dL (0.55-1.30)
[2018-08-18 02:08] LABS: TOTAL BILIRUBIN 0.2 mg/dL (0.0-1.0)
[2018-08-18 02:09] LABS: ALBUMIN 3.4 g/dL (3.4-4.8)
[2018-08-18] MEDS ORDERED: DIPHENHYDRAMINE INJ 50 MG/ML VIAL IVP ONE (04:00)
[2018-08-18] MEDS ORDERED: IBUPROFEN 800 MG TABLET PO ONE (04:00)
[2018-08-18] MEDS ORDERED: FOLIC ACID 1 MG, THIAMINE HCL 100 MG, MAGNESIUM SULFATE 1 GM, MVI 10 ML in NACL 0.9% 1,... IV ONE (04:00)
[2018-08-18] MEDS ORDERED: MORPHINE 4 MG/ML INJ. SYRINGE IVP ONE (04:00)
[2018-08-18] MEDS ORDERED: traMADol HCL HCL 50 MG TABLET (ULTRAM) PO ONE (04:00)
[2018-08-18] MEDS ORDERED: FOLIC ACID 5 MG/ML VIAL IV ONE (04:18)
[2018-08-18] MEDS ORDERED: MVI 10 ML VIAL IV ONE (04:18)
[2018-08-18] MEDS ORDERED: THIAMINE HCL 100 MG/ML VIAL ONE (04:18)
[2018-08-18] MEDS ORDERED: MAGNESIUM SULFATE 1 GM/2 ML VIAL ONE (04:18)
[2018-08-18 04:30] VITALS: BP_SYST 129
== END 2018-08-18 04:30 | disposition home or self-care (01) ==
LOC: SED 00:27
DX: R07.89 Other chest pain (principal); M25.511 Pain in right shoulder; F17.210 Nicotine dependence, cigarettes, uncomplicated; I10 Essential (primary) hypertension; I48.91 Unspecified atrial fibrillation; Z79.82 Long term (current) use of aspirin; Z79.899 Other long term (current) drug therapy; Y90.8 Blood alcohol level of 240 mg/100 ml or more
CPT/HCPCS: 36415; 71045; 80053; 83880; 84484; 85025; 85379; 85610; 85730; 93005; 96365; 96366; 99284; G0482; J2270; J3411; J3475; J3490; J1200

== ENCOUNTER 2018-09-05 06:32 | Inpatient (IN) | payer OTHER ==
[~2018-09-05] VITALS: Ht 170.2 cm; Wt 78.0 kg
[2018-09-05 06:46] VITALS: BP_SYST 130
[2018-09-05] MEDS ORDERED: ONDANSETRON HCL 4 MG/2 ML VIAL IVP ONE ×2 (07:15→08:00)
[2018-09-05] MEDS ORDERED: NACL 0.9% 1,000 ML IV ONE ×2 (07:15→07:46)
[2018-09-05 07:59] LABS: BASOPHILS # (AUTO) 0.1 K/uL (0.0-0.2); BASOPHILS % (AUTO) 0.6 % (0.0-2.0); EOSINOPHILS # (AUTO) 0.1 K/uL (0.0-0.4); EOSINOPHILS % (AUTO) 0.9 % (0.0-4.0); HEMATOCRIT 40.8 % (36-54); HEMOGLOBIN 13.6 g/dL (14.0-18.0); LYMPHOCYTES # (AUTO) 1.4 K/uL (1.0-5.5); LYMPHOCYTES % (AUTO) 12.2 % (20.5-51.5); MEAN CORPUSCULAR HEMOGLOBIN 31 pg (27-31); MEAN CORPUSCULAR HGB CONC 33 % (32-36); MEAN CORPUSCULAR VOLUME 91 fL (79.0-98.0); MONOCYTES # (AUTO) 1.6 K/uL (0.0-1.0); MONOCYTES % (AUTO) 13.4 % (1.7-9.3); NEUTROPHILS # (AUTO) 8.5 K/uL (1.8-7.7); PLATELET COUNT (AUTO) 224 K/uL (130-430); RED BLOOD CELL COUNT(AUTO) 4.47 MIL/uL (4.2-6.2); RED CELL DISTRIBUTION WIDTH 18.1 % (9.0-15.0); WHITE BLOOD COUNT (AUTO) 11.6 K/uL (4.8-10.8)
[2018-09-05] MEDS ORDERED: FOLIC ACID 1 MG, THIAMINE HCL 100 MG, MAGNESIUM SULFATE 1 GM, MVI 10 ML in NACL 0.9% 1,... IV ONE (08:00)
[2018-09-05] MEDS ORDERED: LORazepam 2 MG/ML VIAL (FOR ER USE) IVP ONE (08:00)
[2018-09-05 08:04] LABS: CREATININE 1.06 mg/dL (0.55-1.30); POTASSIUM 3.7 mmol/L (3.5-5.1)
[2018-09-05 08:06] LABS: INR 1.1 (0.80-1.20); PROTHROMBIN TIME 10.8 SECS (9.5-12.5)
[2018-09-05 08:09] LABS: ALBUMIN 3.9 g/dL (3.4-4.8)
[2018-09-05] MEDS ORDERED: MORPHINE 4 MG/ML INJ. SYRINGE IVP ONE (08:15)
[2018-09-05] MEDS ORDERED: LORazepam 2 MG/ML VIAL (FOR ER USE) ONE (08:16)
[2018-09-05 08:28] LABS: CKMB RELATIVE INDEX 2.8 (0.0-2.9); CREATINE KINASE MB 13.3 ng/mL (0-3.6)
[2018-09-05] MEDS ORDERED: NS 1000 ML IV.SOLN IV ONE (08:30)
[2018-09-05 08:40] LABS: NEUTROPHILS % (AUTO) 72.9 % (40.0-70.0)
[2018-09-05 12:17] LABS: BILIRUBIN,URINE NEGATIVE (NEGATIVE); BLOOD, URINE NEGATIVE (NEGATIVE); GLUCOSE,URINE NEGATIVE (NEGATIVE); KETONES,URINE TRACE (NEGATIVE); LEUKOCYTE ESTERASE ,URINE NEGATIVE (NEGATIVE); NITRITE, URINE NEGATIVE (NEGATIVE); PH,URINE 6.5 (5.0-8.0); PROTEIN URINE 1+ (NEGATIVE)
[2018-09-05 12:18] LABS: CLARITY/URINE SLIGHTLY HAZY (CLEAR); COLOR,URINE AMBER (YELLOW)
[2018-09-05 12:22] LABS: BACTERIA,URINE FEW /HPF (None Seen); RBC,URINE NONE SEEN /HPF (0-3); WBC,URINE 0-3 /HPF (0-3)
[2018-09-05] MEDS: D5/0.45 NS 1,000 ML IV SCH (13:00)
[2018-09-05 13:28] VITALS: BP_SYST 151
[2018-09-05] MEDS: LORazepam 2 MG/ML VIAL IVP PRN (13:38)
[2018-09-05] MEDS ORDERED: LORazepam 1 MG TABLET PO PRN (15:00)
[2018-09-05] MEDS ORDERED: ACETAMINOPHEN 325 MG TABLET PO PRN (15:15)
[2018-09-05] MEDS ORDERED: ONDANSETRON HCL 4 MG/2 ML VIAL IVP PRN (15:15)
[2018-09-05] MEDS: chlordiazePOXIDE HCL 25 MG CAPSULE PO SCH ×2 (15:40→20:05)
[2018-09-05] MEDS: HYDROcodone/ACETAMIN 5-325 MG TAB (NORCO/ VICODIN) PO PRN (15:41)
[2018-09-05 16:02] VITALS: BP_SYST 142
[2018-09-05 19:05] VITALS: BP_SYST 137
[2018-09-05] MEDS: GABAPENTIN 100 MG CAPSULE PO SCH (20:05)
[2018-09-05] MEDS: HYDROcodone/ACETAMIN 10-325 MG TAB PO PRN (20:06)
[2018-09-05] MEDS: METOPROLOL TARTRATE 25 MG TABLET PO SCH (20:07)
[2018-09-06 00:40] VITALS: BP_SYST 130
[2018-09-06] MEDS: D5/0.45 NS 1,000 ML IV SCH ×2 (05:21→13:03)
[2018-09-06] MEDS: LORazepam 2 MG/ML VIAL IVP PRN ×3 (06:07→18:32)
[2018-09-06] MEDS: HYDROcodone/ACETAMIN 5-325 MG TAB (NORCO/ VICODIN) PO PRN (06:08)
[2018-09-06 06:57] LABS: BASOPHILS % (AUTO) 0.5 % (0.0-2.0); EOSINOPHILS # (AUTO) 0.1 K/uL (0.0-0.4); EOSINOPHILS % (AUTO) 2.5 % (0.0-4.0); HEMATOCRIT 34.2 % (36-54); HEMOGLOBIN 11.4 g/dL (14.0-18.0); LYMPHOCYTES # (AUTO) 1.5 K/uL (1.0-5.5); LYMPHOCYTES % (AUTO) 25.5 % (20.5-51.5); MEAN CORPUSCULAR HEMOGLOBIN 31 pg (27-31); MEAN CORPUSCULAR HGB CONC 33 % (32-36); MEAN CORPUSCULAR VOLUME 93 fL (79.0-98.0); MONOCYTES # (AUTO) 0.8 K/uL (0.0-1.0); NEUTROPHILS # (AUTO) 3.5 K/uL (1.8-7.7); NEUTROPHILS % (AUTO) 57.5 % (40.0-70.0); PLATELET COUNT (AUTO) 121 K/uL (130-430); RED CELL DISTRIBUTION WIDTH 17.3 % (9.0-15.0)
[2018-09-06 07:49] LABS: CREATININE 0.83 mg/dL (0.55-1.30); PHOSPHORUS 2.8 mg/dL (2.7-4.5); POTASSIUM 3.7 mmol/L (3.5-5.1)
[2018-09-06 08:00] VITALS: BP_SYST 129
[2018-09-06] MEDS: GABAPENTIN 100 MG CAPSULE PO SCH ×2 (09:08→20:30)
[2018-09-06] MEDS: OMEPRAZOLE 20 MG CAPSULE.DR (PriLOSEC) PO SCH (09:08)
[2018-09-06] MEDS: THIAMINE HCL 100 MG TABLET PO SCH (09:09)
[2018-09-06] MEDS: chlordiazePOXIDE HCL 25 MG CAPSULE PO SCH ×3 (09:09→20:32)
[2018-09-06] MEDS: METOPROLOL TARTRATE 25 MG TABLET PO SCH ×2 (09:09→20:30)
[2018-09-06] MEDS: AMIODARONE HCL 200 MG TABLET PO SCH (09:10)
[2018-09-06] MEDS: FOLIC ACID 1 MG TABLET PO SCH (09:10)
[2018-09-06 11:34] VITALS: BP_SYST 126
[2018-09-06] MEDS: HYDROcodone/ACETAMIN 10-325 MG TAB PO PRN ×2 (12:58→18:33)
[2018-09-06 15:20] VITALS: BP_SYST 117
[2018-09-06] MEDS ORDERED: LOPERAMIDE HCL 2 MG CAPSULE PO PRN (15:30)
[2018-09-06 19:05] VITALS: BP_SYST 136
[2018-09-06] MEDS: BACLOFEN 10 MG TABLET PO SCH (20:31)
[2018-09-07 00:25] VITALS: BP_SYST 121
[2018-09-07] MEDS: D5/0.45 NS 1,000 ML IV SCH ×4 (02:47→23:00)
[2018-09-07] MEDS: HYDROcodone/ACETAMIN 10-325 MG TAB PO PRN ×3 (02:48→23:01)
[2018-09-07 06:46] LABS: BASOPHILS % (AUTO) 0.5 % (0.0-2.0); EOSINOPHILS # (AUTO) 0.2 K/uL (0.0-0.4); HEMATOCRIT 33.8 % (36-54); HEMOGLOBIN 11.2 g/dL (14.0-18.0); LYMPHOCYTES # (AUTO) 1.7 K/uL (1.0-5.5); LYMPHOCYTES % (AUTO) 25.4 % (20.5-51.5); MEAN CORPUSCULAR HEMOGLOBIN 31 pg (27-31); MEAN CORPUSCULAR HGB CONC 33 % (32-36); MEAN CORPUSCULAR VOLUME 93 fL (79.0-98.0); MONOCYTES # (AUTO) 0.7 K/uL (0.0-1.0); MONOCYTES % (AUTO) 9.7 % (1.7-9.3); NEUTROPHILS # (AUTO) 4.2 K/uL (1.8-7.7); NEUTROPHILS % (AUTO) 61.4 % (40.0-70.0); PLATELET COUNT (AUTO) 112 K/uL (130-430); RED BLOOD CELL COUNT(AUTO) 3.65 MIL/uL (4.2-6.2); RED CELL DISTRIBUTION WIDTH 17.5 % (9.0-15.0); WHITE BLOOD COUNT (AUTO) 6.8 K/uL (4.8-10.8)
[2018-09-07 06:55] LABS: CALCIUM 8.4 mg/dL (8.4-11.0); CREATININE 0.97 mg/dL (0.55-1.30); POTASSIUM 3.7 mmol/L (3.5-5.1)
[2018-09-07 07:05] LABS: ALBUMIN 3.1 g/dL (3.4-4.8); TOTAL BILIRUBIN 0.8 mg/dL (0.0-1.0)
[2018-09-07 08:00] VITALS: BP_SYST 130
[2018-09-07] MEDS: THIAMINE HCL 100 MG TABLET PO SCH (08:32)
[2018-09-07] MEDS: OMEPRAZOLE 20 MG CAPSULE.DR (PriLOSEC) PO SCH (08:32)
[2018-09-07] MEDS: FOLIC ACID 1 MG TABLET PO SCH (08:33)
[2018-09-07] MEDS: chlordiazePOXIDE HCL 25 MG CAPSULE PO SCH ×3 (08:33→20:08)
[2018-09-07] MEDS: GABAPENTIN 100 MG CAPSULE PO SCH ×2 (08:33→20:07)
[2018-09-07] MEDS: AMIODARONE HCL 200 MG TABLET PO SCH (08:34)
[2018-09-07] MEDS: METOPROLOL TARTRATE 25 MG TABLET PO SCH ×2 (08:34→20:08)
[2018-09-07] MEDS: BACLOFEN 10 MG TABLET PO SCH ×3 (08:34→20:08)
[2018-09-07] MEDS: NICOTINE 14 MG/24 HR PATCH.TD24 TD SCH ×2 (09:30→11:44)
[2018-09-07 11:26] VITALS: BP_SYST 125
[2018-09-07] MEDS: LORazepam 2 MG/ML VIAL IVP PRN ×2 (15:14→23:01)
[2018-09-07 15:27] VITALS: BP_SYST 136
[2018-09-07 20:00] VITALS: BP_SYST 122
[2018-09-08 00:04] VITALS: BP_SYST 142
[2018-09-08 07:04] LABS: BASOPHILS % (AUTO) 0.5 % (0.0-2.0); EOSINOPHILS # (AUTO) 0.2 K/uL (0.0-0.4); EOSINOPHILS % (AUTO) 2.3 % (0.0-4.0); HEMATOCRIT 36.3 % (36-54); HEMOGLOBIN 12.1 g/dL (14.0-18.0); LYMPHOCYTES # (AUTO) 1.6 K/uL (1.0-5.5); LYMPHOCYTES % (AUTO) 17.7 % (20.5-51.5); MEAN CORPUSCULAR HEMOGLOBIN 31 pg (27-31); MEAN CORPUSCULAR HGB CONC 33 % (32-36); MEAN CORPUSCULAR VOLUME 92 fL (79.0-98.0); MONOCYTES # (AUTO) 0.7 K/uL (0.0-1.0); NEUTROPHILS # (AUTO) 6.3 K/uL (1.8-7.7); NEUTROPHILS % (AUTO) 71.5 % (40.0-70.0); PLATELET COUNT (AUTO) 136 K/uL (130-430); RED BLOOD CELL COUNT(AUTO) 3.93 MIL/uL (4.2-6.2); RED CELL DISTRIBUTION WIDTH 17.2 % (9.0-15.0); WHITE BLOOD COUNT (AUTO) 8.8 K/uL (4.8-10.8)
[2018-09-08 07:11] LABS: CREATININE 0.9 mg/dL (0.55-1.30); POTASSIUM 3.8 mmol/L (3.5-5.1)
[2018-09-08 08:06] VITALS: BP_SYST 142
[2018-09-08] MEDS: OMEPRAZOLE 20 MG CAPSULE.DR (PriLOSEC) PO SCH (08:32)
[2018-09-08] MEDS: THIAMINE HCL 100 MG TABLET PO SCH (08:32)
[2018-09-08] MEDS: NICOTINE 14 MG/24 HR PATCH.TD24 TD SCH ×3 (08:32→08:42)
[2018-09-08] MEDS: METOPROLOL TARTRATE 25 MG TABLET PO SCH (08:33)
[2018-09-08] MEDS: chlordiazePOXIDE HCL 25 MG CAPSULE PO SCH ×2 (08:34→15:08)
[2018-09-08] MEDS: BACLOFEN 10 MG TABLET PO SCH ×2 (08:34→15:08)
[2018-09-08] MEDS: AMIODARONE HCL 200 MG TABLET PO SCH (08:34)
[2018-09-08] MEDS: GABAPENTIN 100 MG CAPSULE PO SCH (08:34)
[2018-09-08] MEDS: FOLIC ACID 1 MG TABLET PO SCH (08:34)
[2018-09-08] MEDS: HYDROcodone/ACETAMIN 10-325 MG TAB PO PRN (08:40)
[2018-09-08] MEDS: D5/0.45 NS 1,000 ML IV SCH (09:30)
[2018-09-08 15:25] VITALS: BP_SYST 148
[2018-09-08 18:43] VITALS: BP_SYST 148
== END 2018-09-08 19:50 | disposition home or self-care (01) | DRG 897 ==
LOC: SED 06:32 → STU 11:28 → SMU 11:54
PROVIDERS: ADMIT Preventive Medicine Preventive Medicine/Occupational Environmental Medicine; ATTEND Preventive Medicine Preventive Medicine/Occupational Environmental Medicine
DX: F10.129 Alcohol abuse with intoxication, unspecified (principal); E44.0 Moderate protein-calorie malnutrition; E87.2 Acidosis; I12.9 Hypertensive chronic kidney disease with stage 1 through stage 4 chronic kidney disease, or unspecified chronic kidney disease; D64.9 Anemia, unspecified; D72.829 Elevated white blood cell count, unspecified; N18.9 Chronic kidney disease, unspecified; I48.91 Unspecified atrial fibrillation; F17.210 Nicotine dependence, cigarettes, uncomplicated; G47.30 Sleep apnea, unspecified; R73.9 Hyperglycemia, unspecified; R74.0 Nonspecific elevation of levels of transaminase and lactic acid dehydrogenase [LDH]; G89.29 Other chronic pain; I25.10 Atherosclerotic heart disease of native coronary artery without angina pectoris; J44.9 Chronic obstructive pulmonary disease, unspecified; K74.60 Unspecified cirrhosis of liver; Z82.49 Family history of ischemic heart disease and other diseases of the circulatory system; Z79.899 Other long term (current) drug therapy
CPT/HCPCS: 36415; 71045; 80048; 80053; 81000-TC; 82150-TC; 82550-TC; 82553-TC; 83605; 83690-TC; 83735-TC; 84100-TC; 84484; 85025; 85610-TC; 85730-TC; 87040-TC; 87081; 87086; 96361; 96365; 96366; 96375; 99285; G0482; J2060; J2270; J2405; J7030

== ENCOUNTER 2018-09-26 15:23 | Inpatient (IN) | payer OTHER ==
[~2018-09-26] VITALS: Ht 167.6 cm; Wt 76.2 kg
[2018-09-26 15:23] VITALS: BP_SYST 130
[~2018-09-26 15:23] MED LIST changes: -ASPI-1155 PO
--- NOTE | 2018-09-26 15:23 | NUR ---
Patient triaged and placed in waiting room. VSS and patient appears in no acute distress at this time. Accompanied by SELF, awaiting available bed, and MD notified of need for MSE.
--- NOTE | 2018-09-26 16:38 | NUR ---
BROUGHT BACK TO BED #1 AND TRIAGED. REPORT GIVEN TO ROBBI
--- NOTE | 2018-09-26 16:48 | NUR ---
ER Dr. Lopez at bedside examining patient.
--- NOTE | 2018-09-26 16:55 | NUR ---
PATIENT GETTING X RAY IN BED.
[2018-09-26] MEDS ORDERED: LORazepam 2 MG/ML VIAL (FOR ER USE) IVP ONE (17:00)
--- NOTE | 2018-09-26 17:01 | NUR ---
Patient came in for the complaint of heart palpitations status-post drinking alcohol today. The pain is 8/10 intensity with no alleviating factors. The patient reports slight shortness of breath. Patient admits to drinking alcohol daily. Patient not complaining of nausea, vomiting, or sob. Patient alert and oriented x4.
[2018-09-26 17:18] LABS: BASOPHILS # (AUTO) 0.1 K/uL (0.0-0.2); BASOPHILS % (AUTO) 0.9 % (0.0-2.0); EOSINOPHILS # (AUTO) 0.2 K/uL (0.0-0.4); EOSINOPHILS % (AUTO) 1.4 % (0.0-4.0); HEMATOCRIT 39.7 % (36-54); HEMOGLOBIN 13.1 g/dL (14.0-18.0); LYMPHOCYTES # (AUTO) 1.7 K/uL (1.0-5.5); LYMPHOCYTES % (AUTO) 13.2 % (20.5-51.5); MEAN CORPUSCULAR HEMOGLOBIN 30 pg (27-31); MEAN CORPUSCULAR HGB CONC 33 % (32-36); MEAN CORPUSCULAR VOLUME 91 fL (79.0-98.0); MONOCYTES # (AUTO) 0.9 K/uL (0.0-1.0); MONOCYTES % (AUTO) 6.9 % (1.7-9.3); NEUTROPHILS # (AUTO) 9.8 K/uL (1.8-7.7); NEUTROPHILS % (AUTO) 77.6 % (40.0-70.0); PLATELET COUNT (AUTO) 271 K/uL (130-430); RED BLOOD CELL COUNT(AUTO) 4.38 MIL/uL (4.2-6.2); RED CELL DISTRIBUTION WIDTH 17.7 % (9.0-15.0); WHITE BLOOD COUNT (AUTO) 12.6 K/uL (4.8-10.8)
--- NOTE | 2018-09-26 17:22 | NUR ---
# 20 gauge angiocath placed to left ac. Use of asceptic technique. Opsite placed over site. Blood return noted. Flushed with 10 cc of normal saline. No evidence of infiltration noted. Patient tolerated well.
[2018-09-26 17:27] LABS: CALCIUM 8.9 mg/dL (8.4-11.0); CREATININE 0.88 mg/dL (0.55-1.30); POTASSIUM 3.9 mmol/L (3.5-5.1)
[2018-09-26 17:30] LABS: PROTHROMBIN TIME 10.2 SECS (9.5-12.5)
[2018-09-26 17:37] LABS: ALBUMIN 3.8 g/dL (3.4-4.8); FREE T4 (FREE THYROXINE) 0.8 ng/dl (0.8-1.5); TOTAL BILIRUBIN 0.5 mg/dL (0.0-1.0)
--- NOTE | 2018-09-26 17:45 | NUR ---
PATIENT GIVEN URINAL FOR URINE. PATIENT SAID HE TRIED BUT COULDNT GO. ASKED PATIENT TO TRY AGAIN.
[2018-09-26 18:04] LABS: BILIRUBIN,URINE NEGATIVE (NEGATIVE); BLOOD, URINE NEGATIVE (NEGATIVE); CLARITY/URINE CLEAR (CLEAR); COLOR,URINE YELLOW (YELLOW); GLUCOSE,URINE NEGATIVE (NEGATIVE); KETONES,URINE NEGATIVE (NEGATIVE); LEUKOCYTE ESTERASE ,URINE NEGATIVE (NEGATIVE); NITRITE, URINE NEGATIVE (NEGATIVE); PROTEIN URINE 1+ (NEGATIVE)
[2018-09-26] MEDS ORDERED: NACL 0.9% 2,000 ML IV ONE (18:15)
[2018-09-26 18:23] LABS: BARBITURATE, URINE NEGATIVE (NEG <=200); BENZODIAZEPINE, URINE POSITIVE (NEG <=150); CANNABINOID, URINE NEGATIVE (NEG <=50); COCAINE, URINE NEGATIVE (NEG <=150); METHAMPHETAMINES SCREEN,URINE NEGATIVE (NEG <=500); OPIATE, URINE NEGATIVE (NEG <=100); PHENCYCLIDINE SCREEN,URINE NEGATIVE (NEG <=25); UR TRICYCLIC ANTIDEPRESSANTS NEGATIVE (NEG <=300); URINE AMPHETAMINE NEGATIVE (NEG <=500); URINE METHADONE NEGATIVE (NEG <=200); URINE OXYCODONE SCREEN NEGATIVE (NEG <=100); URINE PROPOXYPHENE SCREEN NEGATIVE (NEG <=300)
[2018-09-26 18:28] LABS: RBC,URINE 0-3 /HPF (0-3); WBC,URINE 0-3 /HPF (0-3)
[2018-09-26 18:29] LABS: BACTERIA,URINE FEW /HPF (None Seen); MUCUS,URINE None Seen /LPF (None Seen)
[2018-09-26] MEDS ORDERED: LIP40 PO (18:31)
[2018-09-26] MEDS ORDERED: CHLO25CA10 PO (18:31)
[2018-09-26] MEDS ORDERED: ASPI-1155 PO (18:31)
--- NOTE | 2018-09-26 18:31 | NUR ---
MED REC UPDATED AND PUT INTO RECONCILED MEDS.
--- NOTE | 2018-09-26 18:41 | NUR ---
Patient will be admitted to care of DR BRADY. Admitted to TELE unit. Will go to room 107A. Belongings list completed. Summary report printed. Report will be given at bedside.
[2018-09-26] MEDS ORDERED: chlordiazePOXIDE HCL 25 MG CAPSULE PO ONE (18:45)
[2018-09-26] MEDS ORDERED: cloNIDine HCL 0.1 MG TABLET PO ONE (18:45)
--- NOTE | 2018-09-26 19:08 | NUR ---
ENDORSED CARE TO LYUDMILA VÁSQUEZ.
[2018-09-26] MEDS ORDERED: FOLIC ACID 1 MG, THIAMINE HCL 100 MG, MAGNESIUM SULFATE 1 GM, MVI 10 ML in NACL 0.9% 1,... IV ONE (19:15)
--- NOTE | 2018-09-26 19:26 | NUR ---
Transfer to Tele via ACLS protocol. Licensed nurse present. IV present no signs or symptoms of infiltration.
--- NOTE | 2018-09-26 19:29 | NUR ---
ADMISSION NOTE Received patient from ER via terrance, received report from Opal COREAS. Patient admitted with diagnosis of alcohol withdrawal. Patient oriented to hospital routine, call light, toileting and safety-patient verbalized understanding.
[2018-09-26 20:00] VITALS: BP_SYST 179
[2018-09-26 20:01] VITALS: BP_SYST 179
--- NOTE | 2018-09-26 21:17 | NUR ---
PAGED PAGING DR. BRADY FOR ORDERS
--- NOTE | 2018-09-26 21:30 | NUR ---
s/w Spoke w/ Dr. Marcano. Informed him patient is requesting gabapentin and pain meds and he said to continue his medications.
[2018-09-26] MEDS ORDERED: chlordiazePOXIDE HCL 25 MG CAPSULE PO PRN ×2 (21:45→23:45)
[2018-09-26] MEDS ORDERED: LORazepam 1 MG TABLET PO PRN (21:45)
[2018-09-26] MEDS ORDERED: NON-FORMULARY MEDICATION (Hydrocodone/Acetaminophen (Norco 5-325 Tablet) 1 EACH) PO PRN (21:45)
[2018-09-26] MEDS ORDERED: MVI 10 ML VIAL IV ONE (22:22)
[2018-09-26] MEDS ORDERED: MAGNESIUM SULFATE 1 GM/2 ML VIAL ONE (22:22)
[2018-09-26] MEDS ORDERED: THIAMINE HCL 100 MG/ML VIAL ONE (22:22)
[2018-09-26] MEDS ORDERED: FOLIC ACID 5 MG/ML VIAL IV ONE (22:22)
[2018-09-26] MEDS: GABAPENTIN 100 MG CAPSULE PO SCH (22:30)
[2018-09-26] MEDS: METOPROLOL TARTRATE 25 MG TABLET PO SCH (22:32)
[2018-09-26] MEDS: HYDROcodone/ACETAMIN 5-325 MG TAB (NORCO/ VICODIN) PO PRN (22:34)
[2018-09-26] MEDS ORDERED: METOPROLOL TARTRATE 25 MG TABLET PO SCH (23:00)
[2018-09-26] MEDS ORDERED: GABAPENTIN 100 MG CAPSULE PO SCH (23:00)
--- NOTE | 2018-09-26 23:21 | NUR ---
Dr. Marcano making rounds Dr. Marcano saw / evaluated patient.
--- NOTE | 2018-09-26 23:40 | NUR ---
moved to rm 116 Patient complained that he can't rest d/t the roommate's snoring. He said his roommate is noising and he can't sleep. The charge nurse was notified and assigned him to room 116B. The charge nurse and nurse early childhood teacher assistant helped transfer the patient and belongings.
[2018-09-26] MEDS: NICOTINE 21 MG/24 HR PATCH.TD24 TD SCH (23:45)
[2018-09-27] VITALS (10 sets, daily range): BP systolic 96–134
[2018-09-27] MEDS ORDERED: cloNIDine HCL 0.1 MG TABLET PO PRN
[2018-09-27] MEDS ORDERED: IPRATROPIUM/ALBUTEROL SULFATE 3 ML AMPUL.NEB (DUONEB) INH PRN
[2018-09-27] MEDS: TEMAZEPAM 15 MG CAPSULE PO PRN (00:47)
--- NOTE | 2018-09-27 00:57 | NUR ---
NOTES Patient requested sleeping pill and it was given as ordered. SCD's were placed and patient was educated on indication and he verbalized understanding and further added that he likes the massage sensation on his legs. Patient has no further needs. Safety precautions maintained.
--- NOTE | 2018-09-27 02:58 | NUR ---
NOTES Patient is resting w/eyes closed, in comfortable position, no distress noted. Banana bag infusion is complete and patient tolerated. He was place on saline lock.
--- NOTE | 2018-09-27 04:32 | NUR ---
NOTES Patient was momentarily awakened for V/S. B/P 129/85, HR 68 and oxygen saturation is 93% on RA. vascular technician noted peaked T waves which were not present earlier. Presently patient denies pain or SOB. Safety precautions maintained.
[2018-09-27 06:18] LABS: BASOPHILS # (AUTO) 0.1 K/uL (0.0-0.2); BASOPHILS % (AUTO) 0.5 % (0.0-2.0); EOSINOPHILS # (AUTO) 0.3 K/uL (0.0-0.4); EOSINOPHILS % (AUTO) 2.4 % (0.0-4.0); HEMATOCRIT 35.5 % (36-54); HEMOGLOBIN 11.8 g/dL (14.0-18.0); LYMPHOCYTES # (AUTO) 2.4 K/uL (1.0-5.5); LYMPHOCYTES % (AUTO) 22.9 % (20.5-51.5); MEAN CORPUSCULAR HEMOGLOBIN 30 pg (27-31); MEAN CORPUSCULAR HGB CONC 33 % (32-36); MEAN CORPUSCULAR VOLUME 91 fL (79.0-98.0); MONOCYTES # (AUTO) 0.9 K/uL (0.0-1.0); MONOCYTES % (AUTO) 8.7 % (1.7-9.3); NEUTROPHILS # (AUTO) 6.7 K/uL (1.8-7.7); NEUTROPHILS % (AUTO) 65.5 % (40.0-70.0); PLATELET COUNT (AUTO) 189 K/uL (130-430); RED BLOOD CELL COUNT(AUTO) 3.89 MIL/uL (4.2-6.2); RED CELL DISTRIBUTION WIDTH 17.4 % (9.0-15.0); WHITE BLOOD COUNT (AUTO) 10.3 K/uL (4.8-10.8)
[2018-09-27] MEDS: PANTOPRAZOLE SODIUM 40 MG TAB PO SCH (06:27)
--- NOTE | 2018-09-27 06:34 | NUR ---
Closing Notes Patient was given due medication, protonix, and educated on indication / side effect. Presently no pain. He said he feels congested and requested a breathing treatment. Will notify RT. IV to LAC is SL, bed safety maintained. Needs met throughout shift. Will endorse care.
--- NOTE | 2018-09-27 06:39 | NUR ---
Notes -RT Called RT and notified patient requesting breathing treatment.
--- NOTE | 2018-09-27 06:48 | NUR ---
Nutrition Update Foreign Scale 17 noted. Pt admitted for Alcohol Withdrawal Diet: regular BMI: 27.1 kg/m2 RD to follow per nutrition care standards.
[2018-09-27 06:51] LABS: CREATININE 0.82 mg/dL (0.55-1.30)
[2018-09-27 07:05] LABS: ALBUMIN 2.9 g/dL (3.4-4.8)
--- NOTE | 2018-09-27 07:50 | NUR ---
OPENING NOTES, SEEN PT IN BED, PT IS AAOX4, DENIES PAIN, NO SOB, NO RESP DISTRESS. PT IS AFEBRILE. IV ACCESS INTACT AND PATENT. NO S/S OF INFILTRATION OR SWELLING. CALL LIGHT IN REACH. BED IN LOW POSITION. WILL CONT TO MONITOR.
[2018-09-27] MEDS ORDERED: OMEPRAZOLE Non-Formulary 20 MG CAPSULE.DR PO SCH (09:00)
[2018-09-27] MEDS: ATORVASTATIN 20 MG TABLET PO SCH (09:14)
[2018-09-27] MEDS: FOLIC ACID 1 MG TABLET PO SCH (09:15)
[2018-09-27] MEDS: ASPIRIN 81 MG TAB.CHEW PO SCH (09:15)
[2018-09-27] MEDS: GABAPENTIN 100 MG CAPSULE PO SCH ×3 (09:15→21:32)
[2018-09-27] MEDS: METOPROLOL TARTRATE 25 MG TABLET PO SCH ×2 (09:16→21:31)
[2018-09-27] MEDS: NICOTINE 21 MG/24 HR PATCH.TD24 TD SCH (09:18)
[2018-09-27] MEDS: HYDROcodone/ACETAMIN 5-325 MG TAB (NORCO/ VICODIN) PO PRN (09:20)
--- NOTE | 2018-09-27 10:45 | NUR ---
PT IN BED, AWAKE, WATCHING TV, HAD GOOD PAIN RELIEF AFTER PAIN MED. NO SOB, NO DISTRESS. WILL CONT TO MONITOR.
[2018-09-27] MEDS ORDERED: chlordiazePOXIDE HCL 25 MG CAPSULE PO PRN (12:30)
[2018-09-27] MEDS: IPRATROPIUM/ALBUTEROL SULFATE 3 ML AMPUL.NEB (DUONEB) INH SCH ×2 (16:02→19:56)
--- NOTE | 2018-09-27 18:24 | NUR ---
CLOSING NOTES, PT HAS BEEN STABLE, NO INCIDENCE ON WITHDRAWAL/SEIZURES. ALL MED OFFERED AND TAKEN. PT DOWNGRADED TO M/S PER MD. PT TAKEN BY DESIRE KENNEY TO SMOKE WITH NO UNTOWARD INCIDENT. WILL ENDORSE PT TO NIGHT RN.
--- NOTE | 2018-09-27 19:00 | NUR ---
change of shift.pt.presents quiescent affect;calm,pt.viewing tv programming.general status stale.respiratory status@room air. pt.utilizing the bsc;io have positioned th bsc@the side of the bed.pt.had inquired re;medications;neurontin,librium,ativan. norco.i am to reviewed the emar;med-list.urinal placed w/in the reach of the pt.call light/telephone w/in the reach of the pt.
[2018-09-27] MEDS: LORazepam 2 MG/ML VIAL IVP PRN (19:58)
--- NOTE | 2018-09-27 20:00 | NUR ---
i reviewed the [id number]-zdaj.i apprised the pt.that the norco;5/325mg po is q-12hrs/p;last administration:919a;09/27/18.[id number]. neurontin:scheduled;2100p,ativan;1mg poq-6hrs/ativan;1mg ivp;q-1hr.prn.pt.requested ativan;1mg ivp.i have administered the ativan;1mg ivp.i have assessed th v/s ;values w/in normal limits.iv access assessed;intact;i have re-applied extra tape.to iv site. i have inspected the urinal;clean.general status stable.respiratory status stable@room air.pt.capable to reposition self.call light/ telephone w/in the reach of the pt. Addendum: 09/27/18 at 2019 by Vicente Lawrence RN i have apprised the pt.that snacks/beverages are available w/in the shift. pt.garza requested sandwich.i have provided 2 halves sandwich.no additional requests;snacks.
--- NOTE | 2018-09-27 21:00 | NUR ---
2100p medication administered.i have administered the iv fluids;banana-bag.i have provided the indication for the banana-bag. pt.presents no requests@this hour.
[2018-09-27] MEDS: FOLIC ACID 1 MG, THIAMINE HCL 100 MG, MAGNESIUM SULFATE 1 GM, MVI 10 ML in NACL 0.9% 1,... IV SCH (21:32)
--- NOTE | 2018-09-27 22:00 | NUR ---
pt.assessed.pt.presents quiescent affect;calm,somnolent.i have assessed the iv acces;intact;patent;iv fluids;banana-bag infusing. i have inspected the urinal.clean.general status stable.respiratory status stable;unlabored.pt.capable to reposition self.call light/telephone placed w/in the reach of the pt.
--- NOTE | 2018-09-28 | NUR ---
pt.assessed,pt.presents quiescent affect;calm,somnolent.i have inspected the urinal;clean.i have assessed the iv access;intact;patent;iv fluids infusing.general status stable.respirators status stable;unlabored.pt.capable to reposition self.call light/telephone placed w/in the each of the pt. Addendum: 09/28/18 at 0036 by Vicente Lawrence RN v/s assessed;values w/in normal limits.
[2018-09-28] MEDS: IPRATROPIUM/ALBUTEROL SULFATE 3 ML AMPUL.NEB (DUONEB) INH SCH ×4 (01:01→19:46)
--- NOTE | 2018-09-28 02:00 | NUR ---
i had requested medication;anxiety;i have administered ativan:1mg ivp.i have assisted the pt.to the bsc. i have attended to the urinal;measured/cleaned.pt./requested ice water.i have provide the ice water.no additional requests@this hour.
[2018-09-28] MEDS: LORazepam 2 MG/ML VIAL IVP PRN ×3 (02:10→18:22)
--- NOTE | 2018-09-28 04:00 | NUR ---
pt.assessed.pt.presents quiescent affect;calm.viewing tv programing.pt.presents no requests @this hour,no c/o pain,nausea. i have assessed the iv acces;intact;patent iv fluids;banana-bag infusing.i have inspected the urinal;clean.pt.capable to reposition self.general status stable.respiratory status stable.call,light/telephone placed w/in the reach of the pt.
[2018-09-28] MEDS: PANTOPRAZOLE SODIUM 40 MG TAB PO SCH (05:23)
--- NOTE | 2018-09-28 06:30 | NUR ---
pt.assessed.pt.presents quiescent affect;calm,somnolent.i have inspected the bsc;clean,the urinal:clean.i have assessed the iv access; intact;patent iv fluids;banana-bag infusing.general;status stable.respiratory status stable.unlabored.pt.capable to reposition self. call light/telephone placed w/in the reach of the pt.
--- NOTE | 2018-09-28 07:30 | NUR ---
AM ROUNDS: PATIENT AWAKE DURING ROUNDS. RECEIVED REPORT AT BEDSIDE BY NIGHT NURSE MIGUEL. CALL LIGHT WITH IN REACH. BED LOCKED AT LOWEST POSITION. STABLE.
[2018-09-28 08:14] VITALS: BP_SYST 124
[2018-09-28] MEDS: GABAPENTIN 100 MG CAPSULE PO SCH ×3 (08:35→21:13)
[2018-09-28] MEDS: ATORVASTATIN 20 MG TABLET PO SCH (08:35)
[2018-09-28] MEDS: METOPROLOL TARTRATE 25 MG TABLET PO SCH ×2 (08:36→21:13)
[2018-09-28] MEDS: FOLIC ACID 1 MG TABLET PO SCH (08:37)
[2018-09-28] MEDS: NICOTINE 21 MG/24 HR PATCH.TD24 TD SCH (08:37)
[2018-09-28] MEDS: ASPIRIN 81 MG TAB.CHEW PO SCH (08:37)
[2018-09-28] MEDS: HYDROcodone/ACETAMIN 5-325 MG TAB (NORCO/ VICODIN) PO PRN ×2 (09:47→21:14)
--- NOTE | 2018-09-28 09:48 | NUR ---
NORCO PO: C/O GENERALIZED PAIN AND DUE PO PAIN MEDS GIVEN PER REQUEST. NO PROBLEM.
[2018-09-28] MEDS ORDERED: chlordiazePOXIDE HCL 25 MG CAPSULE PO ONE (12:00)
[2018-09-28 12:10] VITALS: BP_SYST 117
--- NOTE | 2018-09-28 12:30 | NUR ---
LUNCH: PATIENT HAVING LUNCH. STABLE.
[2018-09-28 13:38] LABS: BILIRUBIN,URINE NEGATIVE (NEGATIVE); BLOOD, URINE NEGATIVE (NEGATIVE); CLARITY/URINE CLEAR (CLEAR); COLOR,URINE YELLOW (YELLOW); GLUCOSE,URINE NEGATIVE (NEGATIVE); KETONES,URINE NEGATIVE (NEGATIVE); LEUKOCYTE ESTERASE ,URINE NEGATIVE (NEGATIVE); NITRITE, URINE NEGATIVE (NEGATIVE); PH,URINE 5.5 (5.0-8.0); PROTEIN URINE NEGATIVE (NEGATIVE); UROBILINOGEN,URINE 0.2 (0.2-1.0)
--- NOTE | 2018-09-28 14:30 | NUR ---
RN ROUNDS: RESTING. WATCHING TV.
[2018-09-28 18:26] VITALS: BP_SYST 130
--- NOTE | 2018-09-28 18:33 | NUR ---
END OF SHIFT: PATIENT ATE DINNER ALREADY. PT WANTS TO GO OUT SMOKE,WAITING FOR STAFF AVAILABILITY.EXPLAINED TO PATIENT BUT BUT NOT HAPPY ABOUT IT. WILL ENDORSED TO INCOMING NIGHT NURSE .STABLE.
--- NOTE | 2018-09-28 20:25 | NUR ---
ASSIST PATIENT OUT SIDE TO SMOKE back to room , per patient Request .
[2018-09-28 20:56] VITALS: BP_SYST 135
--- NOTE | 2018-09-28 21:05 | NUR ---
PATIENT OUT OF ROOM AMBULATING FFW no SOB chest movement symmetrical assist back to room activity tolerated .
[2018-09-28] MEDS: FOLIC ACID 1 MG, THIAMINE HCL 100 MG, MAGNESIUM SULFATE 1 GM, MVI 10 ML in NACL 0.9% 1,... IV SCH (21:12)
[2018-09-28] MEDS: chlordiazePOXIDE HCL 25 MG CAPSULE PO SCH (21:14)
--- NOTE | 2018-09-29 | NUR ---
NORCO 5/325 MG PO administer for general pain & helpful .
[2018-09-29] MEDS: IPRATROPIUM/ALBUTEROL SULFATE 3 ML AMPUL.NEB (DUONEB) INH SCH ×3 (00:51→13:00)
[2018-09-29 01:59] VITALS: BP_SYST 136
--- NOTE | 2018-09-29 02:00 | NUR ---
HOURLY ROUNDING patient awake on and off HOB elevated verbally Responsive call mcnair with patient / .
[2018-09-29] MEDS: LORazepam 2 MG/ML VIAL IVP PRN ×3 (02:30→17:32)
[2018-09-29] MEDS: PANTOPRAZOLE SODIUM 40 MG TAB PO SCH (06:30)
--- NOTE | 2018-09-29 07:25 | NUR ---
AM ROUNDS: PATIENT ON BREATHING TREATMENT DURING ROUNDS. BEDSIDE REPORT GIVEN BY NIGHT NURSE SIENA. NO NEEDS THIS TIME.
--- NOTE | 2018-09-29 07:26 | NUR ---
LORAZEPAM 1 MG IVP ADMINISTER FOR AGITATION & HELPFUL , patient Resting this hour HOB elevated no complaints made call mcnair with patient .
[2018-09-29 08:15] VITALS: BP_SYST 129
[2018-09-29] MEDS: METOPROLOL TARTRATE 25 MG TABLET PO SCH ×2 (09:25→20:41)
[2018-09-29] MEDS: ASPIRIN 81 MG TAB.CHEW PO SCH (09:26)
[2018-09-29] MEDS: chlordiazePOXIDE HCL 25 MG CAPSULE PO SCH ×2 (09:26→20:40)
[2018-09-29] MEDS: FOLIC ACID 1 MG TABLET PO SCH (09:26)
[2018-09-29] MEDS: GABAPENTIN 100 MG CAPSULE PO SCH ×3 (09:26→20:40)
[2018-09-29] MEDS: ATORVASTATIN 20 MG TABLET PO SCH (09:26)
[2018-09-29] MEDS: NICOTINE 21 MG/24 HR PATCH.TD24 TD SCH (09:35)
--- NOTE | 2018-09-29 11:00 | NUR ---
TRANSFER ROOM: PATIENT TRANSFERRED TO ROOM 106-A .
[2018-09-29 11:49] VITALS: BP_SYST 122
[2018-09-29] MEDS ORDERED: DOXYCYCLINE HYCLATE 100 MG CAPSULE PO ONE (13:00)
--- NOTE | 2018-09-29 13:20 | NUR ---
VIBRAMYCIN PO: DUE PO MEDS GIVEN ORDERED. NO PROBLEM.
--- NOTE | 2018-09-29 17:36 | NUR ---
ATIVAN IV: DUE IV ATIVAN 1MG IVP GIVEN PER PATIENT'S REQUEST FOR ANXIETY. NO ADVERSE REACTIONS NOTED.
--- NOTE | 2018-09-29 18:39 | NUR ---
closing notes: patient resting. ate dinner already. call light with in reach. bed locked at lowest position. stable.
--- NOTE | 2018-09-29 19:54 | NUR ---
OPENING NOTE Received patient resting in bed, no s/sx of distress noted. VSS and is requesting pain medication. Will follow up. IV is SL to LAC. Bed is locked to lowest position, side rails up 2x, bed alarm on and call light w/in reach. Presently refusing seizure pads, stating that he does not have seizures. Will monitor.
[2018-09-29 20:00] VITALS: BP_SYST 130
[2018-09-29] MEDS: DOXYCYCLINE HYCLATE 100 MG CAPSULE PO SCH (20:41)
[2018-09-29] MEDS: FOLIC ACID 1 MG, THIAMINE HCL 100 MG, MAGNESIUM SULFATE 1 GM, MVI 10 ML in NACL 0.9% 1,... IV SCH (20:41)
[2018-09-29] MEDS: HYDROcodone/ACETAMIN 5-325 MG TAB (NORCO/ VICODIN) PO PRN (20:46)
--- NOTE | 2018-09-29 20:51 | NUR ---
NOTES Due medications given, including banana bag IVF and patient tolerating. Patient educated and verbalized understanding. [place] given for moderate pain to right shoulder as ordered. Will monitor.
[2018-09-30 00:26] VITALS: BP_SYST 127
--- NOTE | 2018-09-30 00:39 | NUR ---
NOTES Patient resting in bed, he is awake and watching t.v. He is waiting on IV. I let him know either myself or another nurse is coming in a few minutes to start new IV.
[2018-09-30] MEDS: IPRATROPIUM/ALBUTEROL SULFATE 3 ML AMPUL.NEB (DUONEB) INH SCH ×2 (00:47→07:00)
--- NOTE | 2018-09-30 01:00 | NUR ---
IV START # 22 gauge angiocath placed to LFA. Use of asceptic technique. Opsite placed over site. Blood return noted. Flushed with 10 cc of normal saline. No evidence of infiltration noted. Patient tolerated and connected to IVF, which are infusing as ordered.
[2018-09-30] MEDS: TEMAZEPAM 15 MG CAPSULE PO PRN (01:07)
--- NOTE | 2018-09-30 01:19 | NUR ---
NOTES - sleeping pill Patient requested sleeping pill, so he can rest. Restoril was administered as ordered. Safety precautions maintained and call light w/in reach.
--- NOTE | 2018-09-30 02:23 | NUR ---
NOTES IV alarmed d/t air bubble in line, it was cleared and IVF infusing well. Patient resting quietly and has no further needs. Will monitor.
--- NOTE | 2018-09-30 04:13 | NUR ---
NOTES Patient is sleeping, nonlabored breathing noted. IVF infusing as ordered. Safety precautions maintained. Call light w/in reach.
--- NOTE | 2018-09-30 06:04 | NUR ---
DIVERSIONAL THERAPIST Assigner at bedside for blood draw.
[2018-09-30] MEDS: PANTOPRAZOLE SODIUM 40 MG TAB PO SCH (06:39)
--- NOTE | 2018-09-30 06:50 | NUR ---
CLOSING NOTE Patient is awake, nonlabored breathing on room air. He is disappointed that he didn't have the opportunity to go out to smoke. He said the Nicotine patch doesn't help. IVF infusing, it is not complete d/t loss of IV site during middle of infusion. Safety and seizure precautions in place, and call light w/in reach. Will endorse.
[2018-09-30 07:15] LABS: CALCIUM 9.1 mg/dL (8.4-11.0); CREATININE 0.85 mg/dL (0.55-1.30); POTASSIUM 3.7 mmol/L (3.5-5.1)
[2018-09-30 07:21] LABS: ALBUMIN 3.3 g/dL (3.4-4.8); TOTAL BILIRUBIN 0.6 mg/dL (0.0-1.0)
[2018-09-30 07:32] LABS: BASOPHILS % (AUTO) 0.4 % (0.0-2.0); EOSINOPHILS # (AUTO) 0.6 K/uL (0.0-0.4); EOSINOPHILS % (AUTO) 4.9 % (0.0-4.0); HEMATOCRIT 36.2 % (36-54); HEMOGLOBIN 11.7 g/dL (14.0-18.0); LYMPHOCYTES # (AUTO) 2.6 K/uL (1.0-5.5); LYMPHOCYTES % (AUTO) 22.5 % (20.5-51.5); MEAN CORPUSCULAR HEMOGLOBIN 30 pg (27-31); MEAN CORPUSCULAR HGB CONC 32 % (32-36); MEAN CORPUSCULAR VOLUME 91 fL (79.0-98.0); MONOCYTES # (AUTO) 0.8 K/uL (0.0-1.0); MONOCYTES % (AUTO) 7.2 % (1.7-9.3); NEUTROPHILS # (AUTO) 7.5 K/uL (1.8-7.7); PLATELET COUNT (AUTO) 148 K/uL (130-430); RED BLOOD CELL COUNT(AUTO) 3.97 MIL/uL (4.2-6.2); RED CELL DISTRIBUTION WIDTH 17.1 % (9.0-15.0); WHITE BLOOD COUNT (AUTO) 11.5 K/uL (4.8-10.8)
--- NOTE | 2018-09-30 07:36 | NUR ---
OPENING NOTE: RECEIVED REPORT FROM NIGHT NURSE. PATIENT IS RESTING COMFORTABLY IN BED. NO S/S OF DISTRESS OR SOB. PATIENT IS ALERT AND ORIENTED, ABLE TO EXPRESS NEEDS, AND ASK FOR ASSISTANCE. PATIENT IS REQUESTING TO GO OUTSIDE AND SMOKE. PATIENT INFORMED THAT WILL BE TAKEN OUT BY PEOPLE GREETER WHEN AVAILABLE. PATIENT ON ROOM AIR. PATIENT WITH SCD'S IN PLACE. CALL LIGHT IN REACH, BED IN LOWEST POSITION, AND WILL CONTINUE TO MONITOR.
[2018-09-30 08:06] VITALS: BP_SYST 131
[2018-09-30] MEDS: ASPIRIN 81 MG TAB.CHEW PO SCH (08:40)
[2018-09-30] MEDS: DOXYCYCLINE HYCLATE 100 MG CAPSULE PO SCH (08:41)
[2018-09-30] MEDS: FOLIC ACID 1 MG TABLET PO SCH (08:41)
[2018-09-30] MEDS: GABAPENTIN 100 MG CAPSULE PO SCH (08:41)
[2018-09-30] MEDS: METOPROLOL TARTRATE 25 MG TABLET PO SCH (08:42)
[2018-09-30] MEDS: ATORVASTATIN 20 MG TABLET PO SCH (08:42)
[2018-09-30] MEDS: chlordiazePOXIDE HCL 25 MG CAPSULE PO SCH (08:43)
[2018-09-30] MEDS: LORazepam 2 MG/ML VIAL IVP PRN (08:43)
[2018-09-30] MEDS: NICOTINE 21 MG/24 HR PATCH.TD24 TD SCH (08:43)
[2018-09-30 11:36] VITALS: BP_SYST 139
[2018-09-30 11:44] VITALS: BP_SYST 139
--- NOTE | 2018-09-30 11:49 | NUR ---
Academic Advisement Director: INTERNAL GRINDING MACHINE OPERATOR met with pt. bedside. Pt. was alert, awake and easily participated in this interview. Pt. stated he was here due to alcohol abuse and added that he had 3 major setbacks this year. Pt. stated he recently lost his dad, his mom and his high school sweetheart. Pt. stated his longest period of sobriety was a few months and that was a couple of years ago. INTERNAL GRINDING MACHINE OPERATOR showed pt. some substance abuse referrals and pt. stated he did not want them, he has been given them a few times before. Pt. stated he did not want to talk because there was no privacy in his room as he pointed to his roommate. When asked, pt. stated he had been at [facility] for 4 days and has only worked with PT 2 times. INTERNAL GRINDING MACHINE OPERATOR stated she would make a note of this concern. Pt. stated he did not have any questions for INTERNAL GRINDING MACHINE OPERATOR at this time. INTERNAL GRINDING MACHINE OPERATOR notified pt. that she was available to speak to him if he needed to talk or needed resources.
--- NOTE | 2018-09-30 12:00 | NUR ---
RN ROUNDS PATIENT IS RESTING COMFORTABLY IN BED EATING LUNCH. NO S/S OF DISTRESS OR SOB. PATIENT IS ALERT AND ORIENTED, ABLE TO EXPRESS NEEDS, AND ASK FOR ASSISTANCE. NO NEEDS AT THIS TIME. CALL LIGHT IN REACH, BED IN LOWEST POSITION, AND WILL CONTINUE TO MONITOR.
--- NOTE | 2018-09-30 13:00 | NUR ---
D/C Patient Patient given medication reconciliation form and D/C instructions. Exit Care provided. Patient verbalized understanding. MD discussed with patient the results and treatment provided. Ambulatory with steady gait for discharge to home. Patient in stable condition, ID band removed. IV catheter removed, intact and dressing applied, no active bleeding. Rx of Ativan given. Patient educated on pain management. All belongings sent with patient.
[2018-10-11] MEDS ORDERED: ALBMDI INH (05:29)
[2018-10-11] MEDS ORDERED: MULT-1170 PO (05:29)
[2018-10-11] MEDS ORDERED: IBUP-1970 PO (05:29)
[2018-10-28] MEDS ORDERED: HYDR-4272 PO (09:52)
[2018-10-28] MEDS ORDERED: LEVO750T19 PO (09:53)
[2018-12-10] MEDS ORDERED: CHLO25CA10 PO (11:56)
[2018-12-10] MEDS ORDERED: CEL20 PO (11:56)
== END 2018-09-30 13:00 | disposition home or self-care (01) | DRG 872 ==
LOC: SED 15:23 → STU 18:37 → SMU 09-27 13:34
PROVIDERS: ADMIT Internal Medicine; ATTEND Internal Medicine
DX: A41.9 Sepsis, unspecified organism (principal); F10.239 Alcohol dependence with withdrawal, unspecified; J44.1 Chronic obstructive pulmonary disease with (acute) exacerbation; E44.1 Mild protein-calorie malnutrition; K70.10 Alcoholic hepatitis without ascites; D64.9 Anemia, unspecified; A08.4 Viral intestinal infection, unspecified; I10 Essential (primary) hypertension; F17.210 Nicotine dependence, cigarettes, uncomplicated; Y90.9 Presence of alcohol in blood, level not specified; I48.0 Paroxysmal atrial fibrillation; G62.1 Alcoholic polyneuropathy; Z91.19 Patient's noncompliance with other medical treatment and regimen
CPT/HCPCS: 36415; 71045; 80053; 80307; 81000-TC; 81003; 82140-TC; 83605; 83880; 84439; 84484; 85025; 85610-TC; 87040-TC; 87081; 93005; 94640; 94760; 96365; 96375; 97110-GP; 97116-GP; 97530-GP; 99285; G0378; G0482; J1956; J2060; J3411; J3475; J3490; J7030; J7620

== ENCOUNTER 2018-11-01 11:51 | Inpatient (IN) | payer OTHER ==
[~2018-11-01] VITALS: Ht 167.6 cm; Wt 74.8 kg
[~2018-11-01 11:51] MED LIST changes: -AMIO100T4 PO; +ASPI-1155 PO; +CHLO25CA10 PO; +LEVO750T19 PO; -LIB25 PO; +LIP40 PO; +MULT-1170 PO; -OMEP20CA10 PO
--- NOTE | 2018-11-01 11:54 | NUR ---
Arrived via [facility] ambulance with compliant of fall at 0300 with right periorbital lac and right rib pain. Denies KO. Patient to ER bed 4 to gown for evaluation. Side rails up. Report given to Dio COREAS.
[2018-11-01 11:55] VITALS: BP_SYST 161
[2018-11-01] MEDS ORDERED: NACL 0.9% 1,000 ML IV ONE (12:00)
[2018-11-01] MEDS ORDERED: NS 1000 ML IV.SOLN IV ONE (12:00)
--- NOTE | 2018-11-01 12:03 | NUR ---
Patient is awake, alert, and oriented x4. Patient reports being drunk and falling yesterday. Presents with swelling to right orbital and pain.
[2018-11-01 12:29] LABS: BASOPHILS # (AUTO) 0.1 K/uL (0.0-0.2); BASOPHILS % (AUTO) 0.7 % (0.0-2.0); EOSINOPHILS # (AUTO) 0.3 K/uL (0.0-0.4); EOSINOPHILS % (AUTO) 2.9 % (0.0-4.0); HEMATOCRIT 37.1 % (36-54); HEMOGLOBIN 12.1 g/dL (14.0-18.0); LYMPHOCYTES # (AUTO) 2.4 K/uL (1.0-5.5); LYMPHOCYTES % (AUTO) 23.5 % (20.5-51.5); MEAN CORPUSCULAR HEMOGLOBIN 29 pg (27-31); MEAN CORPUSCULAR HGB CONC 33 % (32-36); MEAN CORPUSCULAR VOLUME 89 fL (79.0-98.0); MONOCYTES # (AUTO) 1.1 K/uL (0.0-1.0); MONOCYTES % (AUTO) 11.1 % (1.7-9.3); NEUTROPHILS # (AUTO) 6.3 K/uL (1.8-7.7); NEUTROPHILS % (AUTO) 61.8 % (40.0-70.0); PLATELET COUNT (AUTO) 206 K/uL (130-430); RED BLOOD CELL COUNT(AUTO) 4.17 MIL/uL (4.2-6.2); RED CELL DISTRIBUTION WIDTH 18.1 % (9.0-15.0); WHITE BLOOD COUNT (AUTO) 10.2 K/uL (4.8-10.8)
--- NOTE | 2018-11-01 12:39 | NUR ---
Patient transported to radiology via gurney, accompanied by ultra sound technician.
[2018-11-01 12:44] LABS: PROTHROMBIN TIME 9.9 SECS (9.5-12.5)
[2018-11-01 12:49] LABS: CALCIUM 8.9 mg/dL (8.4-11.0); CREATININE 1.01 mg/dL (0.55-1.30); POTASSIUM 3.3 mmol/L (3.5-5.1)
[2018-11-01 12:53] LABS: ALBUMIN 3.6 g/dL (3.4-4.8); TOTAL BILIRUBIN 0.4 mg/dL (0.0-1.0)
--- NOTE | 2018-11-01 13:05 | NUR ---
Received call from Rad advising that PT IV came off. Went to Rad and stopped bleeding on left wrist. PT not presenting any signs of acute distress. PT transferred back to ER via terrance with RN and Rad staff.
--- NOTE | 2018-11-01 13:20 | NUR ---
Started new IV on PT. 22 Gauge right wrist on one try. PT tolerated procedure without complicaton or complaint.
--- NOTE | 2018-11-01 13:56 | NUR ---
ER Dr. Lloyd at bedside examining patient.
[2018-11-01] MEDS ORDERED: LIDOCAINE 1% 10 MG/ML, 20 ML MDV INJ ONE (14:15)
--- NOTE | 2018-11-01 14:30 | NUR ---
Patient states he can't urinate. Refused straight catheter. Dr. Lloyd made aware.
[2018-11-01 15:17] LABS: BILIRUBIN,URINE NEGATIVE (NEGATIVE); BLOOD, URINE NEGATIVE (NEGATIVE); CLARITY/URINE CLEAR (CLEAR); COLOR,URINE YELLOW (YELLOW); GLUCOSE,URINE NEGATIVE (NEGATIVE); KETONES,URINE NEGATIVE (NEGATIVE); LEUKOCYTE ESTERASE ,URINE NEGATIVE (NEGATIVE); NITRITE, URINE NEGATIVE (NEGATIVE); PROTEIN URINE NEGATIVE (NEGATIVE); UROBILINOGEN,URINE 0.2 (0.2-1.0)
--- NOTE | 2018-11-01 15:18 | NUR ---
Patient will be admitted to care of Dr. Vazquez. Admitted to medsurg unit. Will go to room 113B. Belongings list completed. Summary report printed. Report will be given to LYUDMILA Plascencia.
--- NOTE | 2018-11-01 15:19 | NUR ---
Patient transferred via gurney and EMT to room 113B.
[2018-11-01 15:23] VITALS: BP_SYST 144
--- NOTE | 2018-11-01 15:23 | NUR ---
admission: Received from ER on a gurney with the diagnosis of acute alcohol intoxication. Oriented x4. Right eye laceration with dressing. Oriented to room, call light within reach. Safety precautions initiated.
[2018-11-01 15:44] LABS: OPIATE, URINE POSITIVE (NEG <=100)
[2018-11-01 15:45] LABS: BARBITURATE, URINE NEGATIVE (NEG <=200); BENZODIAZEPINE, URINE POSITIVE (NEG <=150); CANNABINOID, URINE NEGATIVE (NEG <=50); COCAINE, URINE NEGATIVE (NEG <=150); METHAMPHETAMINES SCREEN,URINE NEGATIVE (NEG <=500); PHENCYCLIDINE SCREEN,URINE NEGATIVE (NEG <=25); UR TRICYCLIC ANTIDEPRESSANTS NEGATIVE (NEG <=300); URINE AMPHETAMINE NEGATIVE (NEG <=500); URINE METHADONE NEGATIVE (NEG <=200); URINE OXYCODONE SCREEN NEGATIVE (NEG <=100); URINE PROPOXYPHENE SCREEN NEGATIVE (NEG <=300)
--- NOTE | 2018-11-01 15:45 | NUR ---
Pain Patient complaining of back pain 02/11, patient repositioned, paged Dr. Vazquez, awaiting call back.
--- NOTE | 2018-11-01 16:00 | NUR ---
Dr. George Vazquez called back, made aware of patient pain, no new orders, doctor to see patient.
[2018-11-01] MEDS: FOLIC ACID 1 MG, THIAMINE HCL 100 MG, MAGNESIUM SULFATE 1 GM, MVI 10 ML in NACL 0.9% 1,... IV SCH (16:39)
--- NOTE | 2018-11-01 17:42 | NUR ---
Rounds Patient sitting up in bed, eating dinner. Tolerated well, no nausea, no vomiting noted. IV site patent, intact, and infusing fluids as ordered. Patient in stable condition.
--- NOTE | 2018-11-01 18:38 | NUR ---
Closing notes Patient resting in bed at this time, A/Ox4. Patient complaining on pain, Dr. Vazquez at bedside. Iv site patent, intact, and infusing fluids as ordered. No active bleeding on right side of the head. On safety precautions, bed kept in lowest position, bed alarm on, call light within reach, 3 side rails up. Patient in stable condition, all needs met.
[2018-11-01] MEDS ORDERED: FOLIC ACID 1 MG TABLET PO SCH (19:00)
[2018-11-01] MEDS ORDERED: NON-FORMULARY MEDICATION (Hydrocodone/Acetaminophen (Norco 5-325 Tablet) 1 EACH) PO PRN (19:00)
--- NOTE | 2018-11-01 19:20 | NUR ---
initial notes: pt is alert, awake, oriented x 4, complain of pain to his body. stable vital sign. wound to right eye is covered with- dry and intact. pt skin around the eye is swollen and discolored. suture is intact. pt has old wound to his back of the head still with scab and anamaria-pt requesting it to be remove. ivf infusing to right fore arm gauge 22-intact and patent, no sign of infiltration.to pt plan of care tonight. discuss about his medication. instructed to call and use call light. pt verbalized understanding. needs attended, call light in reach, side rails up. low bed position.bed alarm on. will follow-up.
[2018-11-01 19:34] VITALS: BP_SYST 154
[2018-11-01] MEDS: HYDROcodone/ACETAMIN 5-325 MG TAB (NORCO/ VICODIN) PO PRN (20:00)
[2018-11-01] MEDS: GABAPENTIN 100 MG CAPSULE PO SCH (21:17)
[2018-11-01] MEDS: METOPROLOL TARTRATE 25 MG TABLET PO SCH (21:19)
[2018-11-01] MEDS: LORazepam 1 MG TABLET PO PRN (21:25)
--- NOTE | 2018-11-01 21:53 | NUR ---
page dr. barnett- inform that pain medication is not working on pt pain and pt wants anamaria suture remove. stated that's it im not gonna gave he's pain medication and order to remove anamaria suture, don't call me again for his pain medication.
--- NOTE | 2018-11-01 22:00 | NUR ---
notes: discuss to pt what dr. barnett stated about his pain medication. pt understand.
--- NOTE | 2018-11-01 23:38 | NUR ---
notes: remove staple from the head. no bleed seen. pt tolerate it well. needs attended. call light in reach. will follow-up.
[2018-11-02 00:41] VITALS: BP_SYST 153
[2018-11-02] MEDS: FOLIC ACID 1 MG, THIAMINE HCL 100 MG, MAGNESIUM SULFATE 1 GM, MVI 10 ML in NACL 0.9% 1,... IV SCH (01:51)
--- NOTE | 2018-11-02 02:00 | NUR ---
notes: pt is awake, alert. call for pain medication. stable. not distress. educate pt about medication. verbalized understanding. needs attended. call light in reach.bed alarm on. safety on. will follow-up.
[2018-11-02] MEDS: HYDROcodone/ACETAMIN 5-325 MG TAB (NORCO/ VICODIN) PO PRN ×4 (02:01→21:15)
--- NOTE | 2018-11-02 04:00 | NUR ---
pt sleeping, no sign of pain, stable. safety orthodontist light in reach. low bed position. will follow-up
[2018-11-02] MEDS: LORazepam 1 MG TABLET PO PRN ×3 (05:27→23:59)
--- NOTE | 2018-11-02 05:53 | NUR ---
notes: awake, alert. not distress. no pain. not anxious. stable. ivf infusing well. will follow-up.
[2018-11-02] MEDS ORDERED: FOLIC ACID 1 MG, THIAMINE HCL 100 MG, MAGNESIUM SULFATE 1 GM, MVI 10 ML in NACL 0.9% 1,... IV SCH (06:49)
--- NOTE | 2018-11-02 07:20 | NUR ---
closing: pt is awake, alert. no pain. no distress. no anxiety. stable. banana bag ivf infusing. no infiltration. needs attended the whole shift. call light in reach. side rails up x 3 low bed position. bed alarm on. bedside report given to am rn.
--- NOTE | 2018-11-02 07:32 | NUR ---
A/Ox4, on room air. Patient is near nursing station. IV on right wrist, #22, infusing with banana bag, intact and patent. Call light in place, bed locked at the lowest position, bed alarm on, will continue to monitor.
[2018-11-02 08:00] VITALS: BP_SYST 130
[2018-11-02] MEDS: ASPIRIN 81 MG TAB.CHEW PO SCH (08:01)
[2018-11-02] MEDS: GABAPENTIN 100 MG CAPSULE PO SCH ×3 (08:02→21:12)
[2018-11-02] MEDS: chlordiazePOXIDE HCL 25 MG CAPSULE PO PRN (08:02)
[2018-11-02] MEDS: METOPROLOL TARTRATE 25 MG TABLET PO SCH ×2 (08:06→21:14)
--- NOTE | 2018-11-02 10:00 | NUR ---
PATIENT IS AT REST, NO SIGNS OF DISTRESS NOTED.
[2018-11-02 11:28] VITALS: BP_SYST 100
--- NOTE | 2018-11-02 12:08 | NUR ---
PATIENT IS EATING DINNER AT THIS TIME. NO SIGNS OF DISTRESS NOTED.
--- NOTE | 2018-11-02 14:33 | NUR ---
Public Health Service Officer: FARM BOSS met with pt. bedside. Pt. stated he fell. When FARM BOSS asked for more detail, pt. stated he had a couple of drinks and fell and cut his eye and may have cracked a rib. He stated he began to make his way down the stairs and began shouting for his neighbor to come assist him. He stated he was in a lot of pain as FARM BOSS was asking him questions. FARM BOSS explained to him each time he comes to the hospital, she has to come check on him. Pt. stated he had been drinking rum and juice, but only a couple of drinks. FARM BOSS told pt. he has been to [facility] a total of 75 times since August, Pt. agreed that was a lot of visits to the hospital, but stated he did not need or want any help. FARM BOSS asked pt. if he had been diagnosed with Anxiety. He confirmed it and that he takes Ativan on the days that he does not drink. FARM BOSS asked pt. if he has ever been diagnosed with Depression. He confirmed a couple of weeks ago at the [facility], he was diagnosed with Depression and was prescibed some medicine, but has not picked it up yet. FARM BOSS asked pt. if he knew Brody Ng CYLINDRICAL MIXER at [facility] with the [facility]. Pt. stated he knows Mr. Ng, left a message for him, but has yet to hear from him. When FARM BOSS asked pt. about any support system's , pt. did not want FARM BOSS to contact his sister as he does not want to trouble her. After some discussion about getting some other types of interventions, Mr. Syed stated he was open to going to [facility], a SNF. FARM BOSS relayed this info the current [facility]. FARM BOSS called and left a message for Mr. Ng. FARM BOSS will remain available as needed.
[2018-11-02 15:33] VITALS: BP_SYST 122
[2018-11-02] MEDS ORDERED: POTASSIUM CHLORIDE 20 MEQ TAB.PRT.SR PO ONE (16:15)
--- NOTE | 2018-11-02 16:20 | NUR ---
patient is resting, no signs of distress noted.
--- NOTE | 2018-11-02 18:30 | NUR ---
Patient finishes dinner. No signs of distress noted.
--- NOTE | 2018-11-02 20:12 | NUR ---
SMOKE TOOK PT OUT TO SMOKE. PT IS BACK IN BED .
--- NOTE | 2018-11-02 20:15 | NUR ---
INITIAL NOTES: PATIENT IN BED AFTER SMOKING OUTSIDE. CALM WATCHING TV SHOWS.ASKED WHAT TIME ARE HIS MEDS. HAS TOLERABLE RIBS /BACK PAIN. NO ACUTE DISTRESS. SALINE LOCK PATENT. ASKED FOR SNACKS OF 2 SANDWICHES GIVEN. VITAL SIGNS STABLE. WILL MONITOR CLOSELY.
[2018-11-02 20:20] VITALS: BP_SYST 115
[2018-11-02] MEDS: ATORVASTATIN 20 MG TABLET PO SCH (21:11)
--- NOTE | 2018-11-02 21:15 | NUR ---
MEDS ADMIN: ALL DUE MEDS PO GIVEN. TAKEN IN GOOD SPIRIT. VERBALIZING HOW HE GOT HERE.
--- NOTE | 2018-11-02 22:00 | NUR ---
LACERATION WOUND TO RIGHT ORBITAL AREA DRESSING CHANGED, WITH 5 SUTURES,NO DRAINAGE.
--- NOTE | 2018-11-02 23:55 | NUR ---
RESTING QUITELY, BUT ASKED FOR HIS ATIVAN I MG PO GIVEN. VOIDED FREELY VIA URINAL.
[2018-11-03 00:50] VITALS: BP_SYST 121
--- NOTE | 2018-11-03 01:05 | NUR ---
RESTING WITH EYES CLOSE.NO DISTRESS.BREATHING PATTERN REGULAR.
--- NOTE | 2018-11-03 03:15 | NUR ---
CALLED AGREED TO HAVE NORCO, 5MG PO GIVEN.
[2018-11-03] MEDS: HYDROcodone/ACETAMIN 5-325 MG TAB (NORCO/ VICODIN) PO PRN ×3 (03:16→16:23)
--- NOTE | 2018-11-03 03:30 | NUR ---
PATIENT WOKE UP. HAVING A LOT OF RIGHT AND LEFT RIBS AREA ,RADIATING TO BACK. STRETCHING TENSELY TEARFUL DUE TO PAIN. AVAILABLE PAIN MED IS ONLY NORCO ,UPSET AND REFUSING SINCE ITS A LOW DOSE.REQUESTING FOR MORPHINE IV ,TOLD HIM NEED TO CALL MD .GOT VERY UPSET,DEMANDING FOR ANOTHER MD.VERY UPSET.TRY TO CALM HIM DOWN. REFUSE NORCO FOR NOW. WILL PAGE .
--- NOTE | 2018-11-03 03:56 | NUR ---
Paged Dr. Vazquez
--- NOTE | 2018-11-03 04:30 | NUR ---
PATIENT CALM. EYES CLOSE.
--- NOTE | 2018-11-03 06:35 | NUR ---
CLOSING: RESTING QUITELY THIS TIME. NO ACUTE CARDIOPULMONARY DISTRESS. ALL NEEDS ATTENDED.CALM THIS AM.CALL LIGHT WITHIN REACH. SAFETY MEASURES WERE IMPLEMENTED.WILL ENDORSE CARE TO INCOMING RN.
--- NOTE | 2018-11-03 07:33 | NUR ---
Opening Note received bedside SBAR report from fast food shift supervisor RN, patient resting in bed, no acute distress noted, room close to nurses station, educated patient on use of call light and asked to call for assistance, patient verbalized understanding, call light in reach, bed in low and locked position, bed alarm on.
[2018-11-03 08:00] VITALS: BP_SYST 126
[2018-11-03] MEDS: GABAPENTIN 100 MG CAPSULE PO SCH ×3 (08:04→20:47)
[2018-11-03] MEDS: ASPIRIN 81 MG TAB.CHEW PO SCH (08:04)
[2018-11-03] MEDS: METOPROLOL TARTRATE 25 MG TABLET PO SCH ×2 (08:05→20:48)
[2018-11-03] MEDS: chlordiazePOXIDE HCL 25 MG CAPSULE PO PRN ×2 (08:15→20:47)
[2018-11-03] MEDS ORDERED: FOLIC ACID 1 MG, THIAMINE HCL 100 MG, MAGNESIUM SULFATE 1 GM, MVI 10 ML in NACL 0.9% 1,... IV SCH (10:00)
--- NOTE | 2018-11-03 10:07 | NUR ---
Pain Management/Medication patient complaint of pain, patient requesting PRN norco, educated patient on use and side effects of PRN norco, patient verbalized understanding, tolerated medication administration well, no acute distress noted, patient resting in bed.
[2018-11-03 11:24] VITALS: BP_SYST 116
--- NOTE | 2018-11-03 12:05 | NUR ---
RN Rounds patient sitting up in bed eating lunch, tolerating well, patient denies any nausea, no acute distress noted.
--- NOTE | 2018-11-03 13:48 | NUR ---
Dietitian Recommendations * Recommend continuing regular diet LP, RD Please refer to Nutrition Assessment for details.
--- NOTE | 2018-11-03 14:13 | NUR ---
RN Rounds patient resting in bed, respirations even and unlabored on room air, no acute distress noted, no additional needs at this time.
--- NOTE | 2018-11-03 15:42 | NUR ---
Discharge Planning: DCP faxed pt referral to [facility] ([phone] p [phone]) DCP to follow up
[2018-11-03 16:00] VITALS: BP_SYST 136
--- NOTE | 2018-11-03 16:31 | NUR ---
Pain Management/Medication patient complaint of pain, patient requesting PRN norco, educated patient on use and side effects of PRN norco, patient verbalized understanding, tolerated medication administration well, no acute distress noted.
--- NOTE | 2018-11-03 18:20 | NUR ---
RN Rounds patient sitting up in bed eating dinner, tolerating well, patient denies any nausea, no acute distress noted.
--- NOTE | 2018-11-03 19:00 | NUR ---
IV access IV site leaking, IV catheter removed, catheter intact, no bleeding, pharmacist in charge placed new IV catheter to left forearm, 22G, flushes easily with blood return, patient tolerated well.
--- NOTE | 2018-11-03 19:16 | NUR ---
Closing Note bedside SBAR report given to receiving RN, patient resting in bed, no acute distress noted, side rails padded, room close to nurses station, educated patient on use of call light and asked to call for assistance, patient verbalized understanding, call light in reach, bed in low and locked position, bed alarm on, care endorsed to bi manager RN.
--- NOTE | 2018-11-03 19:17 | NUR ---
Bedside report was received from day shift nurse. Pt was received lying in bed fully AAO x4. Speech is clear and pt is able to make his needs known. No acute distress noted. Pt denies pain or discomfort at this time. Banana bag is infusing well at 100ml in LFA without any signs of infiltration at the IV site. Fall and safety precautions are in place. Call light is with pt and bed alarm is on. Pt's room is across from Nurses' Station. Pt was instructed to call for assistance as needed and pt verbalized understanding.
--- NOTE | 2018-11-03 19:40 | NUR ---
Pt was taken outside the hospital by SHOT TUBE MACHINE TENDER to smoke cigarette.
[2018-11-03 20:00] VITALS: BP_SYST 113
--- NOTE | 2018-11-03 20:00 | NUR ---
Pt is back in his room after smoking cigarette and was seen/examined by Dr. barnett.
[2018-11-03] MEDS: ATORVASTATIN 20 MG TABLET PO SCH (20:47)
--- NOTE | 2018-11-03 20:47 | NUR ---
Librium 25mg was given po per pt's request for c/o anxiety. Addendum: 11/03/18 at 2224 by Maddie Perez RN Pt declined bed alarm. Pt was instructed to call for assistance before getting out of bed if he feels dizzy or drowsy and pt verbalized understanding. Call light is with pt and bed is in the lowest and locked positions.
[2018-11-03] MEDS: LIDOCAINE PATCH 5% 1 EA TP SCH (21:07)
--- NOTE | 2018-11-03 21:07 | NUR ---
Lidoderm patch applied to pt's RUQ per his request and as ordered by Dr. Vazquez.
[2018-11-03] MEDS ORDERED: LIDOCAINE PATCH 5% 1 EA TP ONE (21:18)
--- NOTE | 2018-11-03 21:30 | NUR ---
Pt was given 2 1/2 turkey sandwiches per his request and pt ate 100%. No difficulty swallowing or chewing noted.
[2018-11-03] MEDS: HYDROcodone/ACETAMIN 10-325 MG TAB PO PRN (23:46)
--- NOTE | 2018-11-03 23:46 | NUR ---
[place] 10/325mg 1 tablet was given po per pt's request for c/o 10/12 generalized body aches. Call light is with pt and bed alarm is on.
[2018-11-04 01:16] VITALS: BP_SYST 123; BP_SYST 153
--- NOTE | 2018-11-04 01:22 | NUR ---
Consultation Paged Reason for Consultation: Alcohol dependency Was consult called: Y Person who was notified: Kathryn Consulting Physician: Dr. Mccabe Shook Machine Operator Ordering Physician: Dr. Vazquez Facesheet was faxed to Dr. Mccabe.
--- NOTE | 2018-11-04 02:15 | NUR ---
Pt is awake and resting comfortably in bed. Fall and safety precautions are in place.
--- NOTE | 2018-11-04 03:50 | NUR ---
Pt is awake and was given a cup of coffee per his request. No c/o pain or discomfort at this time. Call light is with pt and bed alarm is on.
[2018-11-04] MEDS: LORazepam 1 MG TABLET PO PRN (04:59)
--- NOTE | 2018-11-04 04:59 | NUR ---
Ativan 1mg was given po for c/o anxiety. Call light is with pt and bed alarm is on.
[2018-11-04] MEDS: HYDROcodone/ACETAMIN 10-325 MG TAB PO PRN ×2 (06:25→12:58)
--- NOTE | 2018-11-04 06:25 | NUR ---
[place] 10/325mg 1 tablet was given po per pt's request for c/o 10/12 generalized body aches. Call light is with pt and bed alarm is on.
--- NOTE | 2018-11-04 07:15 | NUR ---
Rt forehead dressing change done. No drainage or odor noted. Sutures are intact with dry old blood present. Wound was cleansed with normal saline and pat dried, followed by non-stick dressing and paper tape. Pt tolerated dressing change well.
--- NOTE | 2018-11-04 07:24 | NUR ---
Opening Note received bedside SBAR report from fill plant operator RN, patient resting in bed, no acute distress noted, patient reports pain is controlled at this time, room close to nurses station, side rails padded, educated patient on use of call light and asked to call for assistance, patient verbalized understanding, call light in reach, bed in low and locked position, bed alarm on.
[2018-11-04 08:00] VITALS: BP_SYST 109
[2018-11-04] MEDS: METOPROLOL TARTRATE 25 MG TABLET PO SCH (08:43)
[2018-11-04] MEDS: LIDOCAINE PATCH 5% 1 EA TP SCH (08:43)
[2018-11-04] MEDS: ASPIRIN 81 MG TAB.CHEW PO SCH (08:43)
[2018-11-04] MEDS: GABAPENTIN 100 MG CAPSULE PO SCH ×2 (08:43→14:18)
--- NOTE | 2018-11-04 09:50 | NUR ---
Physical Therapy physical therapy at bedside, educated patient on purpose and procedure for physical therapy, patient refusing physical therapy at this time, patient requesting to have physical therapy later.
--- NOTE | 2018-11-04 10:35 | NUR ---
Physical Therapy patient ambulated with physical therapy, tolerated well, patient resting in bed, no acute distress noted.
[2018-11-04 11:09] VITALS: BP_SYST 119
--- NOTE | 2018-11-04 11:32 | NUR ---
DC PLANNING: AARON SPOKE WITH KIN (GLASS UNLOADING EQUIPMENT TENDER @ [facility]) @ [phone]. PATIENT IS ACCEPTED AND ROOM # 803C. CM SPOKE WITH PATIENT AT BEDSIDE REGARDING DC PLAN TO SNF AND [facility] HAS ACCEPTED. PATIENT AGREED TO THE DC PLAN TO [facility] AND SIGNED PATIENT INFORMATION CHOICE LETTER. CM ATTEMPTED TO OBTAIN TRANSPORTATION AUTHORIZATION FROM [employer] @ [phone]. ACCORDING TO LAYLA (PUBLIC WORKS TECHNICIAN), THEIR IS NO NEED FOR TRANSPORTATION AUTHORIZATION. TRANSPORTATION FROM HOSPITAL TO SNF IS A COVERED BENEFIT UNDER PATIENT'S [employer] INSURANCE. TRANSACTION NUMBER FOR THIS CALL IS [id number] CM ARRANGED TRANSPORTATION WITH [facility] @ [phone]. SPOKE WITH CHER (DISPATCH) AND FINANCIAL SOLUTIONS ADVISOR TIME IS AT 2PM. CM MADE PATIENT NURSE AND PATIENT AWARE OF THE DISCHARGE.
--- NOTE | 2018-11-04 12:05 | NUR ---
Called Report called report to [facility], gave SBAR report to Sveta
[2018-11-04 12:48] VITALS: BP_SYST 119
--- NOTE | 2018-11-04 13:03 | NUR ---
Ambulated to bathroom assisted patient to ambulate to bathroom, steady gait noted, minimal assistance required, non-slip footwear in place, patient states he did not need to have a BM and just had gas, assisted patient to ambulate back to bed, patient resting in bed, no acute distress noted.
--- NOTE | 2018-11-04 14:29 | NUR ---
Physician Rounds Dr. Escobar at bedside speaking with patient. Addendum: 11/04/18 at 1430 by Gail Lema RN informed Dr. Escobar that patient is going to be discharged to [facility].
--- NOTE | 2018-11-04 14:32 | NUR ---
Discharge patient provided with discharge packet and instructions for transfer to [facility], patient verbalized understanding, consent for transfer signed and in patients chart, IV catheter removed, catheter intact, no bleeding, patient reports pain is controlled at this time, no acute distress noted, patient declining to have RN contact family for transfer, patient states that he has been in contact with his sister, all belongings sent with patient, hospital ID band removed, plain ID band in place, patient transferred via gurney by BLS ambulance.
[2018-11-05] MEDS ORDERED: CITALOPRAM HYDROBROMIDE 20 MG TABLET PO SCH (09:00)
--- NOTE | 2018-11-06 13:56 | NUR ---
Post Discharge Call Patient called. Stated he is very happy at [facility] and is thankful to the Case Management team for getting him in there. Addendum: 11/10/18 at 1114 by Yancy Cervantes LCSW Patient phoned, , and stated he was no longer happy with his care at [facility]. He stated he is undermedicated for his pain and they are moving him to a less desirable room. He is ready to return home. Patient stated that he was promised by the hospital that he would be provided with a ride home. SHADOWGRAPH OPERATOR phoned [phone] and spoke with Denise transaction number [id number]. A ride home is not a provided benefit. SHADOWGRAPH OPERATOR phoned the health and social care teacher, Magali Garnett at [facility], , and left a voicemail message. Addendum: 11/10/18 at 1151 by Yancy Cervantes LCSW Magali SW from [facility] phoned. Patient has been discharged from PT and OT as of Friday. They will provide patient's transportation home. Provided her with patient's address and phoned patient and left him a voicemail with the above information. Addendum: 11/10/18 at 1325 by Yancy Cervantes LCSW [facility] called again. Spoke with payroll benefits administrator, Channing. Patient is insisting that he has been promised transportation home by either the [facility] or [facility]. SARATH again reviewed the Social Service and notes and no reference to a ride home was found. Spoke with Shannan WALKER who stated no ride was promised to her knowledge. SARATH phoned [facility] and spoke with patient's nurse there and provided the above information.
== END 2018-11-04 14:35 | DRG 125 ==
LOC: SED 11:51 → SMU 15:06
PROVIDERS: ADMIT Family Medicine; ATTEND Family Medicine
PROC: 0HQ1XZZ Repair Face Skin, External Approach (ICD-10-PCS; principal; 2018-11-01)
DX: S01.111A Laceration without foreign body of right eyelid and periocular area, initial encounter (principal); E87.2 Acidosis; F10.229 Alcohol dependence with intoxication, unspecified; F41.9 Anxiety disorder, unspecified; K70.9 Alcoholic liver disease, unspecified; F32.9 Major depressive disorder, single episode, unspecified; G89.29 Other chronic pain; I10 Essential (primary) hypertension; I48.91 Unspecified atrial fibrillation; R29.6 Repeated falls; R45.850 Homicidal ideations; G47.30 Sleep apnea, unspecified; T14.8XXA Other injury of unspecified body region, initial encounter; K70.30 Alcoholic cirrhosis of liver without ascites; W01.0XXA Fall on same level from slipping, tripping and stumbling without subsequent striking against object, initial encounter; Z79.899 Other long term (current) drug therapy; Y93.89 Activity, other specified; Y92.89 Other specified places as the place of occurrence of the external cause; Y99.8 Other external cause status
CPT/HCPCS: 36415; 70450-TC; 71045; 71250-TC; 80053; 80307; 81003; 82150-TC; 83605; 83690-TC; 84484; 85025; 85610-TC; 85730-TC; 87040-TC; 87081; 93005; 96360; 96361; 97116-GP; 97530-GP; 99285; G0481; G0482; J2001; J3411; J3475; J3490; J7030

== ENCOUNTER 2018-11-20 05:58 | Inpatient (IN) | payer OTHER ==
[~2018-11-20] VITALS: Ht 167.6 cm; Wt 77.1 kg
[~2018-11-20 05:58] MED LIST changes: -ALBMDI INH; -LEVO750T19 PO; -MULT-1170 PO
[2018-11-20] MEDS ORDERED: NACL 0.9% 1,000 ML IV ONE (06:36)
[2018-11-20 06:45] VITALS: BP_SYST 131
[2018-11-20] MEDS ORDERED: HYDROcodone/ACETAMIN 10-325 MG TAB PO ONE (06:45)
[2018-11-20] MEDS ORDERED: chlordiazePOXIDE HCL 25 MG CAPSULE PO ONE ×2 (06:45→08:00)
[2018-11-20 07:10] LABS: BASOPHILS # (AUTO) 0.1 K/uL (0.0-0.2); BASOPHILS % (AUTO) 0.4 % (0.0-2.0); EOSINOPHILS % (AUTO) 0.2 % (0.0-4.0); HEMATOCRIT 39.1 % (36-54); HEMOGLOBIN 12.8 g/dL (14.0-18.0); LYMPHOCYTES # (AUTO) 1.2 K/uL (1.0-5.5); LYMPHOCYTES % (AUTO) 8.1 % (20.5-51.5); MEAN CORPUSCULAR HEMOGLOBIN 29 pg (27-31); MEAN CORPUSCULAR HGB CONC 33 % (32-36); MEAN CORPUSCULAR VOLUME 87 fL (79.0-98.0); MONOCYTES # (AUTO) 0.9 K/uL (0.0-1.0); MONOCYTES % (AUTO) 6.4 % (1.7-9.3); NEUTROPHILS # (AUTO) 12.2 K/uL (1.8-7.7); NEUTROPHILS % (AUTO) 84.9 % (40.0-70.0); PLATELET COUNT (AUTO) 228 K/uL (130-430); RED BLOOD CELL COUNT(AUTO) 4.48 MIL/uL (4.2-6.2); RED CELL DISTRIBUTION WIDTH 18.2 % (9.0-15.0); WHITE BLOOD COUNT (AUTO) 14.4 K/uL (4.8-10.8)
[2018-11-20 07:13] LABS: CALCIUM 8.6 mg/dL (8.4-11.0); CREATININE 1.1 mg/dL (0.55-1.30); POTASSIUM 3.8 mmol/L (3.5-5.1)
[2018-11-20] MEDS ORDERED: GABAPENTIN 100 MG CAPSULE PO ONE (07:15)
[2018-11-20 07:16] LABS: PROTHROMBIN TIME 10.4 SECS (9.5-12.5)
[2018-11-20 07:20] LABS: ALBUMIN 3.9 g/dL (3.4-4.8); TOTAL BILIRUBIN 1.5 mg/dL (0.0-1.0)
[2018-11-20] MEDS ORDERED: METOPROLOL TARTRATE 25 MG TABLET PO ONE (08:00)
[2018-11-20] MEDS ORDERED: LORazepam 2 MG/ML VIAL (FOR ER USE) IVP ONE ×2 (09:45→10:30)
[2018-11-20] MEDS ORDERED: MORPHINE 4 MG/ML INJ. SYRINGE IVP ONE (09:45)
[2018-11-20] MEDS ORDERED: ONDANSETRON HCL 4 MG/2 ML VIAL IVP ONE (09:45)
[2018-11-20] MEDS ORDERED: OMEP20CA10 PO (10:04)
[2018-11-20] MEDS ORDERED: ALBMDI INH (10:04)
[2018-11-20] MEDS ORDERED: MULT-1089 PO (10:04)
[2018-11-20] MEDS ORDERED: IBUP-1970 PO (10:04)
[2018-11-20] MEDS ORDERED: GABA-531 PO (10:04)
[2018-11-20] MEDS ORDERED: FOLI-43 PO (10:04)
[2018-11-20 10:48] VITALS: BP_SYST 113
[2018-11-20] MEDS ORDERED: FOLIC ACID 1 MG, THIAMINE HCL 100 MG, MAGNESIUM SULFATE 1 GM, MVI 10 ML in NACL 0.9% 1,... IV ONE (11:00)
[2018-11-20] MEDS: HYDROcodone/ACETAMIN 5-325 MG TAB (NORCO/ VICODIN) PO PRN ×2 (13:27→20:45)
[2018-11-20] MEDS: LORazepam 1 MG TABLET PO PRN ×2 (16:02→22:09)
[2018-11-20] MEDS: GABAPENTIN 100 MG CAPSULE PO SCH ×2 (16:03→20:45)
[2018-11-20] MEDS ORDERED: IBUPROFEN 800 MG TABLET PO PRN (19:30)
[2018-11-20 20:00] VITALS: BP_SYST 128
[2018-11-20] MEDS: chlordiazePOXIDE HCL 25 MG CAPSULE PO SCH (20:44)
[2018-11-21 01:21] VITALS: BP_SYST 110
[2018-11-21] MEDS: HYDROcodone/ACETAMIN 5-325 MG TAB (NORCO/ VICODIN) PO PRN ×4 (02:45→23:46)
[2018-11-21] MEDS: LORazepam 1 MG TABLET PO PRN ×3 (04:27→22:08)
[2018-11-21 08:08] VITALS: BP_SYST 110
[2018-11-21] MEDS: GABAPENTIN 100 MG CAPSULE PO SCH ×3 (08:10→20:02)
[2018-11-21] MEDS: chlordiazePOXIDE HCL 25 MG CAPSULE PO SCH ×2 (08:10→20:02)
[2018-11-21] MEDS: ATORVASTATIN 20 MG TABLET PO SCH (08:10)
[2018-11-21] MEDS: MULTIVITAMINS TAB 1 TABLET PO SCH (08:10)
[2018-11-21] MEDS: OMEPRAZOLE 20 MG CAPSULE.DR (PriLOSEC) PO SCH (08:10)
[2018-11-21] MEDS: ASPIRIN 81 MG TAB.CHEW PO SCH (08:10)
[2018-11-21] MEDS: FOLIC ACID 1 MG TABLET PO SCH (08:10)
[2018-11-21 12:28] VITALS: BP_SYST 118
[2018-11-21 16:27] VITALS: BP_SYST 114
[2018-11-21 20:00] VITALS: BP_SYST 120
[2018-11-21 21:04] LABS: BILIRUBIN,URINE NEGATIVE (NEGATIVE); BLOOD, URINE NEGATIVE (NEGATIVE); CLARITY/URINE CLEAR (CLEAR); COLOR,URINE YELLOW (YELLOW); GLUCOSE,URINE NEGATIVE (NEGATIVE); KETONES,URINE NEGATIVE (NEGATIVE); LEUKOCYTE ESTERASE ,URINE 2+ (NEGATIVE); NITRITE, URINE NEGATIVE (NEGATIVE); PROTEIN URINE NEGATIVE (NEGATIVE)
[2018-11-21 21:12] LABS: BACTERIA,URINE FEW /HPF (None Seen); RBC,URINE 0-3 /HPF (0-3)
[2018-11-21 21:13] LABS: MUCUS,URINE None Seen /LPF (None Seen)
[2018-11-22 01:05] VITALS: BP_SYST 108
[2018-11-22] MEDS: LORazepam 1 MG TABLET PO PRN ×3 (04:01→17:28)
[2018-11-22] MEDS: HYDROcodone/ACETAMIN 5-325 MG TAB (NORCO/ VICODIN) PO PRN ×3 (05:39→21:36)
[2018-11-22 06:18] LABS: BASOPHILS % (AUTO) 0.3 % (0.0-2.0); EOSINOPHILS # (AUTO) 0.3 K/uL (0.0-0.4); EOSINOPHILS % (AUTO) 4.6 % (0.0-4.0); HEMATOCRIT 32.6 % (36-54); HEMOGLOBIN 10.7 g/dL (14.0-18.0); LYMPHOCYTES # (AUTO) 1.3 K/uL (1.0-5.5); LYMPHOCYTES % (AUTO) 17.2 % (20.5-51.5); MEAN CORPUSCULAR HEMOGLOBIN 29 pg (27-31); MEAN CORPUSCULAR HGB CONC 33 % (32-36); MEAN CORPUSCULAR VOLUME 89 fL (79.0-98.0); MONOCYTES # (AUTO) 0.5 K/uL (0.0-1.0); MONOCYTES % (AUTO) 6.2 % (1.7-9.3); NEUTROPHILS # (AUTO) 5.3 K/uL (1.8-7.7); NEUTROPHILS % (AUTO) 71.7 % (40.0-70.0); RED BLOOD CELL COUNT(AUTO) 3.65 MIL/uL (4.2-6.2); RED CELL DISTRIBUTION WIDTH 18.2 % (9.0-15.0); WHITE BLOOD COUNT (AUTO) 7.3 K/uL (4.8-10.8)
[2018-11-22 08:03] VITALS: BP_SYST 123
[2018-11-22] MEDS: ATORVASTATIN 20 MG TABLET PO SCH (08:12)
[2018-11-22] MEDS: GABAPENTIN 100 MG CAPSULE PO SCH ×3 (08:12→21:34)
[2018-11-22] MEDS: OMEPRAZOLE 20 MG CAPSULE.DR (PriLOSEC) PO SCH (08:12)
[2018-11-22] MEDS: MULTIVITAMINS TAB 1 TABLET PO SCH (08:13)
[2018-11-22] MEDS: FOLIC ACID 1 MG TABLET PO SCH (08:13)
[2018-11-22] MEDS: chlordiazePOXIDE HCL 25 MG CAPSULE PO SCH ×2 (08:13→21:34)
[2018-11-22] MEDS: ASPIRIN 81 MG TAB.CHEW PO SCH (08:13)
[2018-11-22 08:30] LABS: ALBUMIN 3.1 g/dL (3.4-4.8); CALCIUM 8.4 mg/dL (8.4-11.0); CREATININE 0.91 mg/dL (0.55-1.30); POTASSIUM 3.5 mmol/L (3.5-5.1)
[2018-11-22 08:46] LABS: PLATELET COUNT (AUTO) 97 K/uL (130-430)
[2018-11-22] MEDS ORDERED: CITALOPRAM HYDROBROMIDE 20 MG TABLET PO ONE (10:30)
[2018-11-22 11:24] VITALS: BP_SYST 103
[2018-11-22 15:31] VITALS: BP_SYST 116
[2018-11-22 20:35] VITALS: BP_SYST 116
[2018-11-23 01:15] VITALS: BP_SYST 120
[2018-11-23] MEDS: LORazepam 1 MG TABLET PO PRN ×2 (01:39→23:59)
[2018-11-23] MEDS: HYDROcodone/ACETAMIN 5-325 MG TAB (NORCO/ VICODIN) PO PRN ×3 (03:45→23:32)
[2018-11-23 06:26] LABS: BASOPHILS % (AUTO) 0.5 % (0.0-2.0); EOSINOPHILS # (AUTO) 0.3 K/uL (0.0-0.4); EOSINOPHILS % (AUTO) 4.9 % (0.0-4.0); HEMATOCRIT 32.1 % (36-54); HEMOGLOBIN 10.6 g/dL (14.0-18.0); LYMPHOCYTES # (AUTO) 1.3 K/uL (1.0-5.5); LYMPHOCYTES % (AUTO) 20.3 % (20.5-51.5); MEAN CORPUSCULAR HEMOGLOBIN 30 pg (27-31); MEAN CORPUSCULAR HGB CONC 33 % (32-36); MEAN CORPUSCULAR VOLUME 89 fL (79.0-98.0); MONOCYTES # (AUTO) 0.5 K/uL (0.0-1.0); MONOCYTES % (AUTO) 8.5 % (1.7-9.3); NEUTROPHILS # (AUTO) 4.2 K/uL (1.8-7.7); NEUTROPHILS % (AUTO) 65.8 % (40.0-70.0); PLATELET COUNT (AUTO) 97 K/uL (130-430); RED BLOOD CELL COUNT(AUTO) 3.59 MIL/uL (4.2-6.2); RED CELL DISTRIBUTION WIDTH 17.8 % (9.0-15.0); WHITE BLOOD COUNT (AUTO) 6.4 K/uL (4.8-10.8)
[2018-11-23 07:21] LABS: CALCIUM 8.7 mg/dL (8.4-11.0); CREATININE 0.85 mg/dL (0.55-1.30); POTASSIUM 4.1 mmol/L (3.5-5.1)
[2018-11-23] MEDS: chlordiazePOXIDE HCL 25 MG CAPSULE PO SCH ×2 (08:21→20:08)
[2018-11-23] MEDS: ATORVASTATIN 20 MG TABLET PO SCH (08:22)
[2018-11-23] MEDS: ASPIRIN 81 MG TAB.CHEW PO SCH (08:22)
[2018-11-23] MEDS: GABAPENTIN 100 MG CAPSULE PO SCH ×3 (08:22→20:08)
[2018-11-23] MEDS: FOLIC ACID 1 MG TABLET PO SCH (08:22)
[2018-11-23] MEDS: OMEPRAZOLE 20 MG CAPSULE.DR (PriLOSEC) PO SCH (08:22)
[2018-11-23] MEDS: CITALOPRAM HYDROBROMIDE 20 MG TABLET PO SCH (08:22)
[2018-11-23] MEDS: MULTIVITAMINS TAB 1 TABLET PO SCH (08:22)
[2018-11-23 12:22] VITALS: BP_SYST 141
[2018-11-23 16:24] VITALS: BP_SYST 126
[2018-11-23 19:59] VITALS: BP_SYST 135
[2018-11-23 23:39] VITALS: BP_SYST 155
[2018-11-24 08:00] VITALS: BP_SYST 141
[2018-11-24] MEDS: GABAPENTIN 100 MG CAPSULE PO SCH ×3 (09:43→20:55)
[2018-11-24] MEDS: FOLIC ACID 1 MG TABLET PO SCH (09:44)
[2018-11-24] MEDS: ASPIRIN 81 MG TAB.CHEW PO SCH (09:44)
[2018-11-24] MEDS: OMEPRAZOLE 20 MG CAPSULE.DR (PriLOSEC) PO SCH (09:44)
[2018-11-24] MEDS: ATORVASTATIN 20 MG TABLET PO SCH (09:44)
[2018-11-24] MEDS: CITALOPRAM HYDROBROMIDE 20 MG TABLET PO SCH (09:44)
[2018-11-24] MEDS: chlordiazePOXIDE HCL 25 MG CAPSULE PO SCH ×2 (09:44→20:54)
[2018-11-24] MEDS: MULTIVITAMINS TAB 1 TABLET PO SCH (09:44)
[2018-11-24] MEDS: HYDROcodone/ACETAMIN 5-325 MG TAB (NORCO/ VICODIN) PO PRN ×2 (09:48→20:56)
[2018-11-24] MEDS: LORazepam 1 MG TABLET PO PRN (11:04)
[2018-11-24 12:39] VITALS: BP_SYST 133
[2018-11-24 16:26] VITALS: BP_SYST 119
[2018-11-24 20:00] VITALS: BP_SYST 104
[2018-11-25 00:01] VITALS: BP_SYST 125
[2018-11-25 00:07] VITALS: BP_SYST 125
[2018-11-25] MEDS: HYDROcodone/ACETAMIN 5-325 MG TAB (NORCO/ VICODIN) PO PRN (01:13)
[2018-11-25] MEDS: LORazepam 1 MG TABLET PO PRN (03:16)
[2018-11-25] MEDS: DICYCLOMINE HCL 10 MG CAPSULE PO PRN ×2 (03:18→11:07)
[2018-11-25 08:00] VITALS: BP_SYST 121
[2018-11-25] MEDS: GABAPENTIN 100 MG CAPSULE PO SCH ×2 (08:42→14:16)
[2018-11-25] MEDS: chlordiazePOXIDE HCL 25 MG CAPSULE PO SCH (08:42)
[2018-11-25] MEDS: ATORVASTATIN 20 MG TABLET PO SCH (08:42)
[2018-11-25] MEDS: ASPIRIN 81 MG TAB.CHEW PO SCH (08:42)
[2018-11-25] MEDS: OMEPRAZOLE 20 MG CAPSULE.DR (PriLOSEC) PO SCH (08:42)
[2018-11-25] MEDS: MULTIVITAMINS TAB 1 TABLET PO SCH (08:42)
[2018-11-25] MEDS: CITALOPRAM HYDROBROMIDE 20 MG TABLET PO SCH (08:43)
[2018-11-25] MEDS: FOLIC ACID 1 MG TABLET PO SCH (08:43)
[2018-11-25 11:29] VITALS: BP_SYST 132
[2018-11-25 14:07] VITALS: BP_SYST 134
== END 2018-11-25 15:15 | disposition home or self-care (01) | DRG 897 ==
LOC: SED 05:58 → SMU 09:54
PROVIDERS: ADMIT Family Medicine; ATTEND Family Medicine
DX: F10.229 Alcohol dependence with intoxication, unspecified (principal); F10.239 Alcohol dependence with withdrawal, unspecified; F32.9 Major depressive disorder, single episode, unspecified; F41.9 Anxiety disorder, unspecified; Y90.6 Blood alcohol level of 120-199 mg/100 ml; E78.5 Hyperlipidemia, unspecified; F17.200 Nicotine dependence, unspecified, uncomplicated; G62.9 Polyneuropathy, unspecified; G89.29 Other chronic pain; D69.6 Thrombocytopenia, unspecified; I10 Essential (primary) hypertension; R45.850 Homicidal ideations; Z79.899 Other long term (current) drug therapy; Z71.6 Tobacco abuse counseling
CPT/HCPCS: 36415; 71045; 71100; 80048; 80053; 81000-TC; 84484; 85025; 85610-TC; 85730-TC; 87081; 93005; 96361; 96374; 96375; 99285; G0482; J2060; J2270; J2405; J3411; J3475; J3490; J7030

== ENCOUNTER 2018-12-16 11:17 | Emergency (ER) | payer OTHER ==
[~2018-12-16] VITALS: Ht 175.3 cm; Wt 79.4 kg
[2018-12-16 11:17] VITALS: BP_SYST 140
[~2018-12-16 11:17] MED LIST changes: +ALBMDI INH; +CEL20 PO; -GABA-529 PO; +GABA-531 PO; +MULT-1089 PO; +OMEP20CA10 PO
--- NOTE | 2018-12-16 11:17 | NUR ---
BROUGHT IN BY [facility] AND PLACED IN BED 5 AND TRIAGED. REPORT GIVEN TO ROBBI
[2018-12-16] MEDS ORDERED: IBUPROFEN 600 MG TABLET PO ONE (11:45)
--- NOTE | 2018-12-16 11:45 | NUR ---
DR FORDE AT BEDSIDE FOR EVALUATION
--- NOTE | 2018-12-16 11:56 | NUR ---
XRAYS BEING DONE AT BEDSIDE.
--- NOTE | 2018-12-16 12:04 | NUR ---
Pt AAOx4 presents to ED c/o 12/12 R shoulder pain r/t fall x 2 days ago, denies KO. Skin pink dry and warm, pt able to lift arm above head. Pt reports anxiety and shakiness. Pt states he takes Ativan, Librium, and norco for other conditions. No other injuries/complaints per pt/noted. Will continue to monitor.
--- NOTE | 2018-12-16 12:06 | NUR ---
Medication administered. Pt tolerated well. No adverse reactions noted.
[2018-12-16 12:22] VITALS: BP_SYST 140
--- NOTE | 2018-12-16 12:22 | NUR ---
Patient given written and verbal discharge instructions and verbalizes understanding. ER MD discussed with patient the results and treatment provided. Patient in stable condition. ID arm band removed. Rx of NAPROXEN given. Patient educated on pain management and to follow up with PMD. Pain Scale 3/10 TOLERABLE. Opportunity for questions provided and answered. Medication side effect fact sheet provided.
== END 2018-12-16 12:22 | disposition home or self-care (01) ==
LOC: SED 11:17
DX: M25.511 Pain in right shoulder (principal); I10 Essential (primary) hypertension; I48.91 Unspecified atrial fibrillation; F10.10 Alcohol abuse, uncomplicated; F17.210 Nicotine dependence, cigarettes, uncomplicated; Z79.899 Other long term (current) drug therapy; W18.39XA Other fall on same level, initial encounter; Y93.89 Activity, other specified; Y92.89 Other specified places as the place of occurrence of the external cause; Y99.8 Other external cause status
CPT/HCPCS: 73030; 99283

== ENCOUNTER 2019-01-06 23:39 | Inpatient (IN) | payer OTHER ==
[~2019-01-06] VITALS: Ht 165.1 cm; Wt 76.3 kg
[~2019-01-06 23:39] MED LIST changes: -CEL20 PO; -MULT-1089 PO
[2019-01-06 23:44] VITALS: BP_SYST 124
[2019-01-07] VITALS (9 sets, daily range): BP systolic 122–141
[2019-01-07] MEDS ORDERED: NACL 0.9% 1,000 ML IV ONE ×2 (00:13→04:15)
[2019-01-07] MEDS ORDERED: LORazepam 2 MG/ML VIAL IVP ONE (00:15)
[2019-01-07] MEDS ORDERED: ONDANSETRON HCL 4 MG/2 ML VIAL IVP ONE (00:15)
[2019-01-07] MEDS ORDERED: MORPHINE 2 MG/ML INJ. SYRINGE IVP ONE (00:15)
[2019-01-07] MEDS ORDERED: chlordiazePOXIDE HCL 25 MG CAPSULE PO ONE (01:00)
[2019-01-07 01:08] LABS: BASOPHILS % (AUTO) 0.4 % (0.0-2.0); EOSINOPHILS # (AUTO) 0.1 K/uL (0.0-0.4); EOSINOPHILS % (AUTO) 0.5 % (0.0-4.0); HEMATOCRIT 36.6 % (36-54); HEMOGLOBIN 12.3 g/dL (14.0-18.0); LYMPHOCYTES % (AUTO) 9.6 % (20.5-51.5); MEAN CORPUSCULAR HEMOGLOBIN 29 pg (27-31); MEAN CORPUSCULAR HGB CONC 34 % (32-36); MEAN CORPUSCULAR VOLUME 87 fL (79.0-98.0); MONOCYTES % (AUTO) 9.1 % (1.7-9.3); NEUTROPHILS # (AUTO) 8.5 K/uL (1.8-7.7); NEUTROPHILS % (AUTO) 80.4 % (40.0-70.0); PLATELET COUNT (AUTO) 182 K/uL (130-430); RED BLOOD CELL COUNT(AUTO) 4.21 MIL/uL (4.2-6.2); RED CELL DISTRIBUTION WIDTH 21.3 % (9.0-15.0); WHITE BLOOD COUNT (AUTO) 10.6 K/uL (4.8-10.8)
[2019-01-07 01:16] LABS: CALCIUM 8.4 mg/dL (8.4-11.0); CREATININE 1.06 mg/dL (0.55-1.30); POTASSIUM 3.8 mmol/L (3.5-5.1)
[2019-01-07 01:21] LABS: ALBUMIN 3.9 g/dL (3.4-4.8); TOTAL BILIRUBIN 1.9 mg/dL (0.0-1.0)
[2019-01-07 01:22] LABS: PROTHROMBIN TIME 10.4 SECS (9.5-12.5)
[2019-01-07 01:57] LABS: BILIRUBIN,URINE 2+ (NEGATIVE); BLOOD, URINE NEGATIVE (NEGATIVE); CLARITY/URINE CLEAR (CLEAR); COLOR,URINE ORANGE (YELLOW); GLUCOSE,URINE NEGATIVE (NEGATIVE); KETONES,URINE 2+ (NEGATIVE); LEUKOCYTE ESTERASE ,URINE NEGATIVE (NEGATIVE); NITRITE, URINE NEGATIVE (NEGATIVE); PROTEIN URINE 2+ (NEGATIVE)
[2019-01-07 02:29] LABS: BARBITURATE, URINE NEGATIVE (NEG <=200); BENZODIAZEPINE, URINE POSITIVE (NEG <=150); METHAMPHETAMINES SCREEN,URINE NEGATIVE (NEG <=500); URINE AMPHETAMINE NEGATIVE (NEG <=500)
[2019-01-07 02:30] LABS: CANNABINOID, URINE NEGATIVE (NEG <=50); COCAINE, URINE NEGATIVE (NEG <=150); OPIATE, URINE NEGATIVE (NEG <=100); PHENCYCLIDINE SCREEN,URINE NEGATIVE (NEG <=25); UR TRICYCLIC ANTIDEPRESSANTS NEGATIVE (NEG <=300); URINE METHADONE NEGATIVE (NEG <=200); URINE OXYCODONE SCREEN NEGATIVE (NEG <=100); URINE PROPOXYPHENE SCREEN NEGATIVE (NEG <=300)
[2019-01-07 02:34] LABS: BACTERIA,URINE FEW /HPF (None Seen); WBC,URINE 0-3 /HPF (0-3)
[2019-01-07] MEDS ORDERED: KETOROLAC TROMETHAMINE 30 MG VIAL IVP ONE (03:00)
[2019-01-07] MEDS ORDERED: DIPHENHYDRAMINE INJ 50 MG/ML VIAL IVP ONE (04:00)
[2019-01-07] MEDS ORDERED: DILTIAZEM HCL 25 MG/5 ML VIAL IVP ONE (04:30)
[2019-01-07] MEDS: KCL 20 mEq in NS 1000 mL 1,000 ML IV SCH ×2 (06:09→15:30)
[2019-01-07] MEDS: PANTOPRAZOLE SODIUM 40 MG TAB PO SCH (06:09)
[2019-01-07] MEDS ORDERED: KCL 20 mEq in NS 1000 mL 1,000 ML IV ONE (06:15)
[2019-01-07] MEDS ORDERED: FOLIC ACID 1 MG, THIAMINE HCL 100 MG, MAGNESIUM SULFATE 1 GM, MVI 10 ML in NACL 0.9% 1,... IV ONE (06:30)
[2019-01-07] MEDS ORDERED: THIAMINE HCL 100 MG, MVI 10 ML in NACL 0.9% 1,000 ML IV ONE (06:54)
[2019-01-07] MEDS ORDERED: FOLIC ACID 1 MG, MAGNESIUM SULFATE 1 GM in NS 100 ML IV ONE (07:00)
[2019-01-07] MEDS: LORazepam 2 MG/ML VIAL IVP PRN ×2 (08:10→23:57)
[2019-01-07] MEDS ORDERED: METOPROLOL TARTRATE 25 MG TABLET PO SCH (09:00)
[2019-01-07] MEDS ORDERED: OMEPRAZOLE Non-Formulary 20 MG CAPSULE.DR PO SCH (09:00)
[2019-01-07] MEDS: METOPROLOL TARTRATE 25 MG TABLET PO SCH ×2 (09:07→20:49)
[2019-01-07] MEDS: GABAPENTIN 300 MG CAPSULE PO SCH ×3 (09:07→20:49)
[2019-01-07] MEDS: ASPIRIN 81 MG TAB.CHEW PO SCH (09:07)
[2019-01-07] MEDS: chlordiazePOXIDE HCL 25 MG CAPSULE PO SCH ×3 (09:08→20:49)
[2019-01-07] MEDS: HYDROcodone/ACETAMIN 5-325 MG TAB (NORCO/ VICODIN) PO PRN (20:50)
[2019-01-08] MEDS: KCL 20 mEq in NS 1000 mL 1,000 ML IV SCH ×3 (00:01→20:24)
[2019-01-08 00:53] VITALS: BP_SYST 108
[2019-01-08] MEDS: PANTOPRAZOLE SODIUM 40 MG TAB PO SCH (06:09)
[2019-01-08] MEDS: HYDROcodone/ACETAMIN 5-325 MG TAB (NORCO/ VICODIN) PO PRN ×2 (06:10→17:15)
[2019-01-08 06:46] LABS: BASOPHILS # (AUTO) 0.1 K/uL (0.0-0.2); EOSINOPHILS # (AUTO) 0.2 K/uL (0.0-0.4); EOSINOPHILS % (AUTO) 4.8 % (0.0-4.0); HEMATOCRIT 32.6 % (36-54); HEMOGLOBIN 10.6 g/dL (14.0-18.0); LYMPHOCYTES # (AUTO) 1.6 K/uL (1.0-5.5); LYMPHOCYTES % (AUTO) 32.9 % (20.5-51.5); MEAN CORPUSCULAR HEMOGLOBIN 30 pg (27-31); MEAN CORPUSCULAR HGB CONC 33 % (32-36); MEAN CORPUSCULAR VOLUME 92 fL (79.0-98.0); MONOCYTES # (AUTO) 0.4 K/uL (0.0-1.0); MONOCYTES % (AUTO) 8.9 % (1.7-9.3); NEUTROPHILS # (AUTO) 2.6 K/uL (1.8-7.7); NEUTROPHILS % (AUTO) 52.4 % (40.0-70.0); PLATELET COUNT (AUTO) 131 K/uL (130-430); RED BLOOD CELL COUNT(AUTO) 3.54 MIL/uL (4.2-6.2); RED CELL DISTRIBUTION WIDTH 22.1 % (9.0-15.0)
[2019-01-08 07:38] LABS: ALBUMIN 3.1 g/dL (3.4-4.8); CALCIUM 8.4 mg/dL (8.4-11.0); CREATININE 0.81 mg/dL (0.55-1.30); POTASSIUM 3.8 mmol/L (3.5-5.1); TOTAL BILIRUBIN 1.9 mg/dL (0.0-1.0)
[2019-01-08] MEDS: GABAPENTIN 300 MG CAPSULE PO SCH ×3 (08:31→20:23)
[2019-01-08] MEDS: chlordiazePOXIDE HCL 25 MG CAPSULE PO SCH ×3 (08:31→20:23)
[2019-01-08] MEDS: ASPIRIN 81 MG TAB.CHEW PO SCH (08:32)
[2019-01-08] MEDS: METOPROLOL TARTRATE 25 MG TABLET PO SCH ×2 (08:32→20:24)
[2019-01-08] MEDS: LORazepam 2 MG/ML VIAL IVP PRN ×3 (08:34→22:40)
[2019-01-08 08:40] VITALS: BP_SYST 113
[2019-01-08] MEDS: THIAMINE HCL 100 MG TABLET PO SCH (12:26)
[2019-01-08] MEDS: FOLIC ACID 1 MG TABLET PO SCH (12:26)
[2019-01-08 12:51] VITALS: BP_SYST 111
[2019-01-08 16:53] VITALS: BP_SYST 116
[2019-01-08 21:24] VITALS: BP_SYST 120
[2019-01-08 23:42] VITALS: BP_SYST 127
[2019-01-09] MEDS: KCL 20 mEq in NS 1000 mL 1,000 ML IV SCH ×2 (06:03→06:40)
[2019-01-09] MEDS: PANTOPRAZOLE SODIUM 40 MG TAB PO SCH ×2 (06:03→06:30)
[2019-01-09] MEDS: LORazepam 2 MG/ML VIAL IVP PRN (06:29)
[2019-01-09] MEDS: HYDROcodone/ACETAMIN 5-325 MG TAB (NORCO/ VICODIN) PO PRN (06:39)
[2019-01-09 08:00] VITALS: BP_SYST 131
[2019-01-09] MEDS: THIAMINE HCL 100 MG TABLET PO SCH (08:53)
[2019-01-09] MEDS: FOLIC ACID 1 MG TABLET PO SCH (08:53)
[2019-01-09] MEDS: ASPIRIN 81 MG TAB.CHEW PO SCH (08:53)
[2019-01-09] MEDS: GABAPENTIN 300 MG CAPSULE PO SCH ×2 (08:53→15:37)
[2019-01-09] MEDS: chlordiazePOXIDE HCL 25 MG CAPSULE PO SCH ×2 (08:53→15:37)
[2019-01-09] MEDS: METOPROLOL TARTRATE 25 MG TABLET PO SCH (08:54)
[2019-01-09 12:00] VITALS: BP_SYST 115
== END 2019-01-09 16:18 | disposition left against medical advice (07) | DRG 309 ==
LOC: SED 23:39 → SIC 01-07 05:19 → STU 01-07 11:27 → SMU 01-09 10:50
PROVIDERS: ADMIT Internal Medicine; ATTEND Internal Medicine
DX: I48.0 Paroxysmal atrial fibrillation (principal); F10.239 Alcohol dependence with withdrawal, unspecified; E44.0 Moderate protein-calorie malnutrition; K70.9 Alcoholic liver disease, unspecified; E78.5 Hyperlipidemia, unspecified; F17.210 Nicotine dependence, cigarettes, uncomplicated; K29.20 Alcoholic gastritis without bleeding; G62.9 Polyneuropathy, unspecified; I10 Essential (primary) hypertension; Z87.81 Personal history of (healed) traumatic fracture; Z71.41 Alcohol abuse counseling and surveillance of alcoholic; Z68.28 Body mass index [BMI] 28.0-28.9, adult
CPT/HCPCS: 36415; 76700-TC; 80053; 80307; 81000-TC; 82150-TC; 83690-TC; 84443-TC; 85025; 85610-TC; 87081; 93005; 96361; 96374; 96375; 97110-GP; 99285; G0378; G0482; J1200; J1885; J2060; J2270; J2405; J3411; J3475; J3480; J3490; J7030

== ENCOUNTER 2019-01-29 01:01 | Inpatient (IN) | payer OTHER ==
[2019-01-29] VITALS (8 sets, daily range): BP systolic 116–139
[~2019-01-29] VITALS: Ht 167.6 cm; Wt 74.8 kg
[~2019-01-29 01:01] MED LIST changes: -OMEP20CA10 PO; +OMEP20CA11 PO
[2019-01-29 01:41] LABS: BASOPHILS # (AUTO) 0.1 K/uL (0.0-0.2); BASOPHILS % (AUTO) 0.7 % (0.0-2.0); EOSINOPHILS # (AUTO) 0.1 K/uL (0.0-0.4); HEMATOCRIT 41.1 % (36-54); HEMOGLOBIN 13.7 g/dL (14.0-18.0); LYMPHOCYTES # (AUTO) 1.2 K/uL (1.0-5.5); LYMPHOCYTES % (AUTO) 12.9 % (20.5-51.5); MEAN CORPUSCULAR HEMOGLOBIN 29 pg (27-31); MEAN CORPUSCULAR HGB CONC 33 % (32-36); MEAN CORPUSCULAR VOLUME 88 fL (79.0-98.0); MONOCYTES # (AUTO) 0.6 K/uL (0.0-1.0); MONOCYTES % (AUTO) 6.1 % (1.7-9.3); NEUTROPHILS # (AUTO) 7.6 K/uL (1.8-7.7); NEUTROPHILS % (AUTO) 79.3 % (40.0-70.0); PLATELET COUNT (AUTO) 205 K/uL (130-430); RED BLOOD CELL COUNT(AUTO) 4.68 MIL/uL (4.2-6.2); RED CELL DISTRIBUTION WIDTH 21.2 % (9.0-15.0); WHITE BLOOD COUNT (AUTO) 9.6 K/uL (4.8-10.8)
[2019-01-29 01:49] LABS: CALCIUM 8.3 mg/dL (8.4-11.0); CREATININE 1.22 mg/dL (0.55-1.30); POTASSIUM 3.8 mmol/L (3.5-5.1)
[2019-01-29 01:55] LABS: ALBUMIN 3.9 g/dL (3.4-4.8); TOTAL BILIRUBIN 1.6 mg/dL (0.0-1.0)
[2019-01-29] MEDS ORDERED: DILTIAZEM HCL 25 MG/5 ML VIAL IVP ONE (03:00)
[2019-01-29] MEDS ORDERED: FOLIC ACID 1 MG, THIAMINE HCL 100 MG, MAGNESIUM SULFATE 1 GM, MVI 10 ML in NACL 0.9% 1,... IV ONE (03:15)
[2019-01-29] MEDS ORDERED: MAGNESIUM SULFATE 1 GM/2 ML VIAL ONE (04:01)
[2019-01-29] MEDS ORDERED: THIAMINE HCL 100 MG/ML VIAL ONE (04:01)
[2019-01-29] MEDS ORDERED: FOLIC ACID 5 MG/ML VIAL IV ONE (04:01)
[2019-01-29] MEDS ORDERED: MVI 10 ML VIAL IV ONE (04:09)
[2019-01-29] MEDS: chlordiazePOXIDE HCL 25 MG CAPSULE PO SCH ×4 (06:05→21:05)
[2019-01-29] MEDS: LORazepam 1 MG TABLET PO PRN ×2 (06:29→12:49)
[2019-01-29] MEDS ORDERED: NICOTINE 21 MG/24 HR PATCH.TD24 TD ONE (09:15)
[2019-01-29] MEDS ORDERED: ALBUTEROL MDI INHALATION 8 GM INH INH PRN (09:15)
[2019-01-29] MEDS ORDERED: ASPIRIN 81 MG TAB.CHEW PO ONE (09:15)
[2019-01-29] MEDS ORDERED: ALBUTEROL SULFATE 0.083% 2.5 MG/3 ML VIAL.NEB INH PRN (09:15)
[2019-01-29] MEDS ORDERED: PANTOPRAZOLE SODIUM 40 MG TAB PO ONE (09:15)
[2019-01-29] MEDS ORDERED: FOLIC ACID 1 MG TABLET PO ONE (09:15)
[2019-01-29] MEDS ORDERED: GABAPENTIN 300 MG CAPSULE PO ONE (09:15)
[2019-01-29] MEDS ORDERED: METOPROLOL TARTRATE 5 MG/5 ML VIAL IVP ONE (09:30)
[2019-01-29] MEDS ORDERED: DIPHENHYDRAMINE HCL 25 MG CAPSULE PO PRN (09:30)
[2019-01-29] MEDS: NACL 0.9% 1,000 ML IV SCH ×3 (09:38→19:29)
[2019-01-29 09:46] LABS: CALCIUM 8.2 mg/dL (8.4-11.0); CREATININE 0.99 mg/dL (0.55-1.30); POTASSIUM 4.2 mmol/L (3.5-5.1)
[2019-01-29 09:50] LABS: INR 1.1 (0.80-1.20); PROTHROMBIN TIME 10.7 SECS (9.5-12.5)
[2019-01-29] MEDS: METOPROLOL TARTRATE 25 MG TABLET PO SCH ×2 (10:26→21:06)
[2019-01-29] MEDS: GABAPENTIN 300 MG CAPSULE PO SCH ×2 (14:15→21:05)
[2019-01-29] MEDS: HEPARIN SODIUM,PORCINE 5000 UNITS/ML VIAL SUBCUT SCH (21:09)
[2019-01-30 01:52] VITALS: BP_SYST 117
[2019-01-30] MEDS: NACL 0.9% 1,000 ML IV SCH ×2 (06:09→20:00)
[2019-01-30] MEDS: LORazepam 1 MG TABLET PO PRN ×2 (06:20→21:31)
[2019-01-30 06:33] VITALS: BP_SYST 137
[2019-01-30 08:51] LABS: BASOPHILS % (AUTO) 0.4 % (0.0-2.0); EOSINOPHILS # (AUTO) 0.2 K/uL (0.0-0.4); HEMATOCRIT 35.5 % (36-54); HEMOGLOBIN 11.6 g/dL (14.0-18.0); LYMPHOCYTES # (AUTO) 1.1 K/uL (1.0-5.5); LYMPHOCYTES % (AUTO) 17.2 % (20.5-51.5); MEAN CORPUSCULAR HEMOGLOBIN 29 pg (27-31); MEAN CORPUSCULAR HGB CONC 33 % (32-36); MEAN CORPUSCULAR VOLUME 87 fL (79.0-98.0); MONOCYTES # (AUTO) 0.5 K/uL (0.0-1.0); MONOCYTES % (AUTO) 8.1 % (1.7-9.3); NEUTROPHILS # (AUTO) 4.5 K/uL (1.8-7.7); NEUTROPHILS % (AUTO) 71.3 % (40.0-70.0); PLATELET COUNT (AUTO) 123 K/uL (130-430); RED BLOOD CELL COUNT(AUTO) 4.06 MIL/uL (4.2-6.2); RED CELL DISTRIBUTION WIDTH 21.3 % (9.0-15.0); WHITE BLOOD COUNT (AUTO) 6.3 K/uL (4.8-10.8)
[2019-01-30 08:57] LABS: CALCIUM 8.8 mg/dL (8.4-11.0); CREATININE 0.88 mg/dL (0.55-1.30); POTASSIUM 3.9 mmol/L (3.5-5.1)
[2019-01-30] MEDS ORDERED: FOLIC ACID 1 MG TABLET PO SCH (09:00)
[2019-01-30] MEDS: HEPARIN SODIUM,PORCINE 5000 UNITS/ML VIAL SUBCUT SCH ×2 (09:00→20:00)
[2019-01-30] MEDS: ASPIRIN 81 MG TAB.CHEW PO SCH (09:04)
[2019-01-30] MEDS: FOLIC ACID 1 MG TABLET PO SCH (09:04)
[2019-01-30] MEDS: chlordiazePOXIDE HCL 25 MG CAPSULE PO SCH ×3 (09:04→19:58)
[2019-01-30] MEDS: PANTOPRAZOLE SODIUM 40 MG TAB PO SCH (09:05)
[2019-01-30] MEDS: GABAPENTIN 300 MG CAPSULE PO SCH ×3 (09:05→19:59)
[2019-01-30] MEDS: METOPROLOL TARTRATE 25 MG TABLET PO SCH ×2 (09:05→19:59)
[2019-01-30] MEDS: THIAMINE HCL 100 MG TABLET PO SCH (09:05)
[2019-01-30] MEDS: NICOTINE 21 MG/24 HR PATCH.TD24 TD SCH (09:05)
[2019-01-30 09:33] LABS: AMYLASE 45 U/L (0-100); LIPASE 310 U/L (73-393)
[2019-01-30] MEDS ORDERED: CITALOPRAM HYDROBROMIDE 20 MG TABLET PO ONE (09:45)
[2019-01-30 11:20] VITALS: BP_SYST 128
[2019-01-30 15:26] VITALS: BP_SYST 128
[2019-01-30 20:00] VITALS: BP_SYST 124
[2019-01-31 01:01] VITALS: BP_SYST 114
[2019-01-31] MEDS: NACL 0.9% 1,000 ML IV SCH ×2 (06:24→15:50)
[2019-01-31 07:35] LABS: BASOPHILS % (AUTO) 0.4 % (0.0-2.0); EOSINOPHILS # (AUTO) 0.2 K/uL (0.0-0.4); EOSINOPHILS % (AUTO) 3.7 % (0.0-4.0); HEMATOCRIT 33.5 % (36-54); HEMOGLOBIN 10.9 g/dL (14.0-18.0); LYMPHOCYTES # (AUTO) 1.1 K/uL (1.0-5.5); LYMPHOCYTES % (AUTO) 17.5 % (20.5-51.5); MEAN CORPUSCULAR HEMOGLOBIN 29 pg (27-31); MEAN CORPUSCULAR HGB CONC 33 % (32-36); MEAN CORPUSCULAR VOLUME 88 fL (79.0-98.0); MONOCYTES # (AUTO) 0.4 K/uL (0.0-1.0); MONOCYTES % (AUTO) 6.6 % (1.7-9.3); NEUTROPHILS # (AUTO) 4.5 K/uL (1.8-7.7); PLATELET COUNT (AUTO) 95 K/uL (130-430); RED BLOOD CELL COUNT(AUTO) 3.82 MIL/uL (4.2-6.2); WHITE BLOOD COUNT (AUTO) 6.3 K/uL (4.8-10.8)
[2019-01-31 07:41] LABS: CALCIUM 8.9 mg/dL (8.4-11.0); CREATININE 0.77 mg/dL (0.55-1.30); POTASSIUM 3.9 mmol/L (3.5-5.1)
[2019-01-31 08:10] VITALS: BP_SYST 132
[2019-01-31] MEDS ORDERED: MAGNESIUM SULFATE 50 ML IV ONE (08:30)
[2019-01-31] MEDS: chlordiazePOXIDE HCL 25 MG CAPSULE PO SCH ×3 (09:04→21:54)
[2019-01-31] MEDS: ASPIRIN 81 MG TAB.CHEW PO SCH (09:04)
[2019-01-31] MEDS: NICOTINE 21 MG/24 HR PATCH.TD24 TD SCH (09:04)
[2019-01-31] MEDS: GABAPENTIN 300 MG CAPSULE PO SCH ×3 (09:04→21:54)
[2019-01-31] MEDS: FOLIC ACID 1 MG TABLET PO SCH (09:04)
[2019-01-31] MEDS: THIAMINE HCL 100 MG TABLET PO SCH (09:05)
[2019-01-31] MEDS: CITALOPRAM HYDROBROMIDE 20 MG TABLET PO SCH (09:05)
[2019-01-31] MEDS: PANTOPRAZOLE SODIUM 40 MG TAB PO SCH (09:05)
[2019-01-31] MEDS: METOPROLOL TARTRATE 25 MG TABLET PO SCH ×2 (09:06→21:00)
[2019-01-31] MEDS: HYDROcodone/ACETAMIN 5-325 MG TAB (NORCO/ VICODIN) PO PRN (09:06)
[2019-01-31] MEDS: HEPARIN SODIUM,PORCINE 5000 UNITS/ML VIAL SUBCUT SCH ×2 (09:08→21:56)
[2019-01-31 11:21] VITALS: BP_SYST 107
[2019-01-31 12:35] LABS: NEUTROPHILS % (AUTO) 71.8 % (40.0-70.0)
[2019-01-31 15:56] VITALS: BP_SYST 100
[2019-01-31 19:00] VITALS: BP_SYST 104
[2019-01-31 20:00] VITALS: BP_SYST 104
[2019-02-01] MEDS: NACL 0.9% 1,000 ML IV SCH ×2 (02:00→08:36)
[2019-02-01 02:03] VITALS: BP_SYST 108
[2019-02-01 06:45] LABS: BASOPHILS % (AUTO) 0.6 % (0.0-2.0); EOSINOPHILS # (AUTO) 0.2 K/uL (0.0-0.4); HEMATOCRIT 31.5 % (36-54); HEMOGLOBIN 10.3 g/dL (14.0-18.0); LYMPHOCYTES # (AUTO) 1.3 K/uL (1.0-5.5); LYMPHOCYTES % (AUTO) 22.5 % (20.5-51.5); MEAN CORPUSCULAR HEMOGLOBIN 29 pg (27-31); MEAN CORPUSCULAR HGB CONC 33 % (32-36); MEAN CORPUSCULAR VOLUME 87 fL (79.0-98.0); MONOCYTES # (AUTO) 0.4 K/uL (0.0-1.0); MONOCYTES % (AUTO) 7.1 % (1.7-9.3); NEUTROPHILS # (AUTO) 3.7 K/uL (1.8-7.7); NEUTROPHILS % (AUTO) 65.8 % (40.0-70.0); PLATELET COUNT (AUTO) 86 K/uL (130-430); RED BLOOD CELL COUNT(AUTO) 3.61 MIL/uL (4.2-6.2); RED CELL DISTRIBUTION WIDTH 20.7 % (9.0-15.0); WHITE BLOOD COUNT (AUTO) 5.6 K/uL (4.8-10.8)
[2019-02-01 07:23] LABS: CALCIUM 8.4 mg/dL (8.4-11.0); CREATININE 0.79 mg/dL (0.55-1.30); POTASSIUM 3.8 mmol/L (3.5-5.1)
[2019-02-01 08:16] VITALS: BP_SYST 139
[2019-02-01] MEDS: THIAMINE HCL 100 MG TABLET PO SCH (08:25)
[2019-02-01] MEDS: PANTOPRAZOLE SODIUM 40 MG TAB PO SCH (08:25)
[2019-02-01] MEDS: GABAPENTIN 300 MG CAPSULE PO SCH ×3 (08:25→21:23)
[2019-02-01] MEDS: FOLIC ACID 1 MG TABLET PO SCH (08:27)
[2019-02-01] MEDS: CITALOPRAM HYDROBROMIDE 20 MG TABLET PO SCH (08:27)
[2019-02-01] MEDS: METOPROLOL TARTRATE 25 MG TABLET PO SCH ×2 (08:27→21:23)
[2019-02-01] MEDS: ASPIRIN 81 MG TAB.CHEW PO SCH (08:27)
[2019-02-01] MEDS: NICOTINE 21 MG/24 HR PATCH.TD24 TD SCH (08:28)
[2019-02-01] MEDS: HEPARIN SODIUM,PORCINE 5000 UNITS/ML VIAL SUBCUT SCH (08:29)
[2019-02-01] MEDS: chlordiazePOXIDE HCL 25 MG CAPSULE PO SCH ×3 (08:36→21:23)
[2019-02-01] MEDS: LORazepam 1 MG TABLET PO PRN ×2 (08:38→23:28)
[2019-02-01] MEDS: HYDROcodone/ACETAMIN 5-325 MG TAB (NORCO/ VICODIN) PO PRN ×2 (08:38→23:29)
[2019-02-01] MEDS ORDERED: buPROPion HCL 100 MG TABLET.SA PO ONE (09:00)
[2019-02-01 11:35] VITALS: BP_SYST 125
[2019-02-01 11:40] VITALS: BP_SYST 125
[2019-02-01 15:26] VITALS: BP_SYST 120
[2019-02-01 20:00] VITALS: BP_SYST 115
[2019-02-01] MEDS: buPROPion HCL 100 MG TABLET.SA PO SCH (21:23)
[2019-02-02 01:21] VITALS: BP_SYST 115
[2019-02-02 09:00] VITALS: BP_SYST 135
[2019-02-02] MEDS: THIAMINE HCL 100 MG TABLET PO SCH (09:29)
[2019-02-02] MEDS: chlordiazePOXIDE HCL 25 MG CAPSULE PO SCH ×3 (09:29→22:13)
[2019-02-02] MEDS: FOLIC ACID 1 MG TABLET PO SCH (09:29)
[2019-02-02] MEDS: buPROPion HCL 100 MG TABLET.SA PO SCH ×2 (09:29→22:11)
[2019-02-02] MEDS: ASPIRIN 81 MG TAB.CHEW PO SCH (09:30)
[2019-02-02] MEDS: GABAPENTIN 300 MG CAPSULE PO SCH ×3 (09:30→22:13)
[2019-02-02] MEDS: PANTOPRAZOLE SODIUM 40 MG TAB PO SCH (09:30)
[2019-02-02] MEDS: METOPROLOL TARTRATE 25 MG TABLET PO SCH ×2 (09:33→22:13)
[2019-02-02] MEDS: NICOTINE 21 MG/24 HR PATCH.TD24 TD SCH (09:33)
[2019-02-02] MEDS: HYDROcodone/ACETAMIN 5-325 MG TAB (NORCO/ VICODIN) PO PRN ×2 (10:18→22:12)
[2019-02-02 12:20] VITALS: BP_SYST 120
[2019-02-02 15:05] VITALS: BP_SYST 126
[2019-02-02 15:46] VITALS: BP_SYST 110
[2019-02-02 20:00] VITALS: BP_SYST 131
[2019-02-03 00:30] VITALS: BP_SYST 120
[2019-02-03] MEDS ORDERED: FLU VACC QUAD 2019-20(36MOS UP) 60 MCG/0.5 ML SYRINGE I.M. PRN (06:30)
[2019-02-03 08:00] VITALS: BP_SYST 122
[2019-02-03] MEDS: chlordiazePOXIDE HCL 25 MG CAPSULE PO SCH ×3 (08:50→23:13)
[2019-02-03] MEDS: ASPIRIN 81 MG TAB.CHEW PO SCH (08:50)
[2019-02-03] MEDS: GABAPENTIN 300 MG CAPSULE PO SCH ×3 (08:50→23:13)
[2019-02-03] MEDS: PANTOPRAZOLE SODIUM 40 MG TAB PO SCH (08:50)
[2019-02-03] MEDS: FOLIC ACID 1 MG TABLET PO SCH (08:50)
[2019-02-03] MEDS: buPROPion HCL 100 MG TABLET.SA PO SCH ×2 (08:50→23:14)
[2019-02-03] MEDS: THIAMINE HCL 100 MG TABLET PO SCH (08:50)
[2019-02-03] MEDS: NICOTINE 21 MG/24 HR PATCH.TD24 TD SCH (08:50)
[2019-02-03] MEDS: METOPROLOL TARTRATE 25 MG TABLET PO SCH ×2 (08:51→21:00)
[2019-02-03 11:34] VITALS: BP_SYST 103
[2019-02-03 17:01] VITALS: BP_SYST 139
[2019-02-03 19:00] VITALS: BP_SYST 101
[2019-02-03 20:00] VITALS: BP_SYST 101
[2019-02-03] MEDS ORDERED: OXYCODONE/ACETAMINOPHEN *10*mg/325 mg TABLET PO PRN (23:30)
[2019-02-03] MEDS ORDERED: BACLOFEN 10 MG TABLET PO SCH (23:30)
[2019-02-03] MEDS ORDERED: LUBIPROSTONE 24 MCG CAPSULE PO SCH (23:30)
[2019-02-03] MEDS ORDERED: MELATONIN 3 MG TABLET PO PRN (23:30)
[2019-02-04 02:32] VITALS: BP_SYST 132
[2019-02-04 08:00] VITALS: BP_SYST 152
[2019-02-04] MEDS ORDERED: WELSR100 PO (08:56)
[2019-02-04 09:14] LABS: BASOPHILS # (AUTO) 0.1 K/uL (0.0-0.2); BASOPHILS % (AUTO) 0.8 % (0.0-2.0); EOSINOPHILS # (AUTO) 0.3 K/uL (0.0-0.4); EOSINOPHILS % (AUTO) 3.7 % (0.0-4.0); HEMATOCRIT 32.9 % (36-54); HEMOGLOBIN 10.8 g/dL (14.0-18.0); LYMPHOCYTES # (AUTO) 1.1 K/uL (1.0-5.5); LYMPHOCYTES % (AUTO) 15.7 % (20.5-51.5); MEAN CORPUSCULAR HEMOGLOBIN 29 pg (27-31); MEAN CORPUSCULAR HGB CONC 33 % (32-36); MEAN CORPUSCULAR VOLUME 88 fL (79.0-98.0); MONOCYTES # (AUTO) 0.9 K/uL (0.0-1.0); MONOCYTES % (AUTO) 13.1 % (1.7-9.3); NEUTROPHILS # (AUTO) 4.6 K/uL (1.8-7.7); NEUTROPHILS % (AUTO) 66.7 % (40.0-70.0); PLATELET COUNT (AUTO) 105 K/uL (130-430); RED BLOOD CELL COUNT(AUTO) 3.75 MIL/uL (4.2-6.2); RED CELL DISTRIBUTION WIDTH 21.6 % (9.0-15.0); WHITE BLOOD COUNT (AUTO) 6.9 K/uL (4.8-10.8)
[2019-02-04] MEDS: THIAMINE HCL 100 MG TABLET PO SCH (09:20)
[2019-02-04] MEDS: GABAPENTIN 300 MG CAPSULE PO SCH ×3 (09:20→20:59)
[2019-02-04] MEDS: PANTOPRAZOLE SODIUM 40 MG TAB PO SCH (09:20)
[2019-02-04] MEDS: ASPIRIN 81 MG TAB.CHEW PO SCH (09:20)
[2019-02-04] MEDS: FOLIC ACID 1 MG TABLET PO SCH (09:20)
[2019-02-04] MEDS: buPROPion HCL 100 MG TABLET.SA PO SCH ×2 (09:20→20:59)
[2019-02-04] MEDS: chlordiazePOXIDE HCL 25 MG CAPSULE PO SCH ×3 (09:21→20:59)
[2019-02-04] MEDS: METOPROLOL TARTRATE 25 MG TABLET PO SCH ×2 (09:21→21:01)
[2019-02-04] MEDS: NICOTINE 21 MG/24 HR PATCH.TD24 TD SCH (09:22)
[2019-02-04] MEDS: HYDROcodone/ACETAMIN 5-325 MG TAB (NORCO/ VICODIN) PO PRN (09:31)
[2019-02-04 09:47] VITALS: BP_SYST 152
[2019-02-04 12:16] VITALS: BP_SYST 154
[2019-02-04 16:55] VITALS: BP_SYST 110
[2019-02-04 20:00] VITALS: BP_SYST 115
[2019-02-05 00:38] VITALS: BP_SYST 93
[2019-02-05 06:11] LABS: BASOPHILS % (AUTO) 0.4 % (0.0-2.0); EOSINOPHILS # (AUTO) 0.3 K/uL (0.0-0.4); EOSINOPHILS % (AUTO) 4.8 % (0.0-4.0); HEMATOCRIT 33.1 % (36-54); HEMOGLOBIN 10.9 g/dL (14.0-18.0); LYMPHOCYTES # (AUTO) 1.4 K/uL (1.0-5.5); LYMPHOCYTES % (AUTO) 22.3 % (20.5-51.5); MEAN CORPUSCULAR HEMOGLOBIN 29 pg (27-31); MEAN CORPUSCULAR HGB CONC 33 % (32-36); MEAN CORPUSCULAR VOLUME 88 fL (79.0-98.0); MONOCYTES % (AUTO) 16.8 % (1.7-9.3); NEUTROPHILS # (AUTO) 3.5 K/uL (1.8-7.7); NEUTROPHILS % (AUTO) 55.7 % (40.0-70.0); PLATELET COUNT (AUTO) 115 K/uL (130-430); RED BLOOD CELL COUNT(AUTO) 3.75 MIL/uL (4.2-6.2); RED CELL DISTRIBUTION WIDTH 21.7 % (9.0-15.0); WHITE BLOOD COUNT (AUTO) 6.2 K/uL (4.8-10.8)
[2019-02-05 08:00] VITALS: BP_SYST 152
[2019-02-05] MEDS: NICOTINE 21 MG/24 HR PATCH.TD24 TD SCH (08:28)
[2019-02-05] MEDS: buPROPion HCL 100 MG TABLET.SA PO SCH ×2 (08:28→21:11)
[2019-02-05] MEDS: PANTOPRAZOLE SODIUM 40 MG TAB PO SCH (08:29)
[2019-02-05] MEDS: GABAPENTIN 300 MG CAPSULE PO SCH ×3 (08:29→21:11)
[2019-02-05] MEDS: FOLIC ACID 1 MG TABLET PO SCH (08:29)
[2019-02-05] MEDS: THIAMINE HCL 100 MG TABLET PO SCH (08:29)
[2019-02-05] MEDS: ASPIRIN 81 MG TAB.CHEW PO SCH (08:29)
[2019-02-05] MEDS: chlordiazePOXIDE HCL 25 MG CAPSULE PO SCH ×3 (08:29→21:14)
[2019-02-05] MEDS: METOPROLOL TARTRATE 25 MG TABLET PO SCH ×2 (08:30→21:00)
[2019-02-05 10:26] VITALS: BP_SYST 125
[2019-02-05 12:10] VITALS: BP_SYST 113
[2019-02-05 19:40] VITALS: BP_SYST 116
[2019-02-05] MEDS: HYDROcodone/ACETAMIN 5-325 MG TAB (NORCO/ VICODIN) PO PRN (19:42)
[2019-02-06 00:40] VITALS: BP_SYST 99
[2019-02-06 07:38] VITALS: BP_SYST 148
[2019-02-06] MEDS: ASPIRIN 81 MG TAB.CHEW PO SCH (08:35)
[2019-02-06] MEDS: FOLIC ACID 1 MG TABLET PO SCH (08:35)
[2019-02-06] MEDS: PANTOPRAZOLE SODIUM 40 MG TAB PO SCH (08:35)
[2019-02-06] MEDS: chlordiazePOXIDE HCL 25 MG CAPSULE PO SCH ×3 (08:35→21:57)
[2019-02-06] MEDS: NICOTINE 21 MG/24 HR PATCH.TD24 TD SCH (08:35)
[2019-02-06] MEDS: buPROPion HCL 100 MG TABLET.SA PO SCH ×2 (08:35→21:57)
[2019-02-06] MEDS: THIAMINE HCL 100 MG TABLET PO SCH (08:35)
[2019-02-06] MEDS: GABAPENTIN 300 MG CAPSULE PO SCH ×3 (08:35→21:56)
[2019-02-06] MEDS: HYDROcodone/ACETAMIN 5-325 MG TAB (NORCO/ VICODIN) PO PRN (08:40)
[2019-02-06] MEDS: METOPROLOL TARTRATE 25 MG TABLET PO SCH ×2 (08:50→21:57)
[2019-02-06 12:23] VITALS: BP_SYST 106
[2019-02-06] MEDS: LORazepam 1 MG TABLET PO PRN (12:53)
[2019-02-06 16:22] VITALS: BP_SYST 124
[2019-02-06 20:46] VITALS: BP_SYST 131
[2019-02-07 01:16] VITALS: BP_SYST 99
[2019-02-07 08:21] VITALS: BP_SYST 115
[2019-02-07] MEDS: NICOTINE 21 MG/24 HR PATCH.TD24 TD SCH (08:22)
[2019-02-07] MEDS: GABAPENTIN 300 MG CAPSULE PO SCH ×3 (08:23→20:32)
[2019-02-07] MEDS: HYDROcodone/ACETAMIN 5-325 MG TAB (NORCO/ VICODIN) PO PRN ×2 (08:25→15:46)
[2019-02-07] MEDS: chlordiazePOXIDE HCL 25 MG CAPSULE PO SCH ×3 (08:25→20:32)
[2019-02-07] MEDS: FOLIC ACID 1 MG TABLET PO SCH (08:25)
[2019-02-07] MEDS: THIAMINE HCL 100 MG TABLET PO SCH (08:26)
[2019-02-07] MEDS: METOPROLOL TARTRATE 25 MG TABLET PO SCH ×2 (08:26→20:33)
[2019-02-07] MEDS: PANTOPRAZOLE SODIUM 40 MG TAB PO SCH (08:27)
[2019-02-07] MEDS: ASPIRIN 81 MG TAB.CHEW PO SCH (08:27)
[2019-02-07] MEDS: buPROPion HCL 100 MG TABLET.SA PO SCH ×2 (08:27→20:33)
[2019-02-07 12:00] VITALS: BP_SYST 112
[2019-02-07] MEDS: LORazepam 1 MG TABLET PO PRN (12:47)
[2019-02-07 16:38] VITALS: BP_SYST 116
[2019-02-07 20:00] VITALS: BP_SYST 102
[2019-02-08 00:32] VITALS: BP_SYST 101
[2019-02-08 08:00] VITALS: BP_SYST 116
[2019-02-08] MEDS: buPROPion HCL 100 MG TABLET.SA PO SCH ×2 (08:32→21:09)
[2019-02-08] MEDS: GABAPENTIN 300 MG CAPSULE PO SCH ×3 (08:33→21:09)
[2019-02-08] MEDS: THIAMINE HCL 100 MG TABLET PO SCH (08:33)
[2019-02-08] MEDS: FOLIC ACID 1 MG TABLET PO SCH (08:33)
[2019-02-08] MEDS: chlordiazePOXIDE HCL 25 MG CAPSULE PO SCH (08:33)
[2019-02-08] MEDS: PANTOPRAZOLE SODIUM 40 MG TAB PO SCH (08:33)
[2019-02-08] MEDS: ASPIRIN 81 MG TAB.CHEW PO SCH (08:33)
[2019-02-08] MEDS: METOPROLOL TARTRATE 25 MG TABLET PO SCH ×2 (08:34→21:00)
[2019-02-08] MEDS: NICOTINE 21 MG/24 HR PATCH.TD24 TD SCH (08:34)
[2019-02-08 12:35] VITALS: BP_SYST 92
[2019-02-08] MEDS: chlordiazePOXIDE HCL 10 MG CAPSULE PO SCH ×2 (14:40→21:09)
[2019-02-08 16:10] VITALS: BP_SYST 109
[2019-02-08] MEDS ORDERED: HYDROcodone/ACETAMIN 5-325 MG TAB (NORCO/ VICODIN) PO ONE (22:15)
[2019-02-09 01:50] VITALS: BP_SYST 119
[2019-02-09 08:00] VITALS: BP_SYST 123
[2019-02-09] MEDS ORDERED: HYDROcodone/ACETAMIN 5-325 MG TAB (NORCO/ VICODIN) PO PRN (08:30)
[2019-02-09] MEDS ORDERED: buPROPion HCL 150 MG TABLET.SA PO SCH ×2 (09:00→09:11)
[2019-02-09] MEDS: GABAPENTIN 300 MG CAPSULE PO SCH ×2 (09:15→15:09)
[2019-02-09] MEDS: FOLIC ACID 1 MG TABLET PO SCH (09:17)
[2019-02-09] MEDS: THIAMINE HCL 100 MG TABLET PO SCH (09:17)
[2019-02-09] MEDS: PANTOPRAZOLE SODIUM 40 MG TAB PO SCH (09:17)
[2019-02-09] MEDS: chlordiazePOXIDE HCL 10 MG CAPSULE PO SCH ×2 (09:17→15:09)
[2019-02-09] MEDS: METOPROLOL TARTRATE 25 MG TABLET PO SCH (09:17)
[2019-02-09] MEDS: ASPIRIN 81 MG TAB.CHEW PO SCH (09:17)
[2019-02-09] MEDS: NICOTINE 21 MG/24 HR PATCH.TD24 TD SCH (09:18)
[2019-02-09] MEDS ORDERED: LIB10 PO (09:49)
[2019-02-09 12:35] VITALS: BP_SYST 104
[2019-02-09] MEDS ORDERED: THIA50TA10 PO (14:32)
[2019-02-09 16:31] VITALS: BP_SYST 133
[2019-02-09 17:03] VITALS: BP_SYST 121
== END 2019-02-09 18:30 | disposition home health service (06) | DRG 56 ==
LOC: SED 01:01 → STU 03:57 → SMU 01-30 16:52
PROVIDERS: ADMIT General Practice; ATTEND General Practice
DX: G31.2 Degeneration of nervous system due to alcohol (principal); G92 Toxic encephalopathy; J98.11 Atelectasis; F33.1 Major depressive disorder, recurrent, moderate; F10.239 Alcohol dependence with withdrawal, unspecified; F10.229 Alcohol dependence with intoxication, unspecified; F17.210 Nicotine dependence, cigarettes, uncomplicated; I48.0 Paroxysmal atrial fibrillation; D69.59 Other secondary thrombocytopenia; G89.4 Chronic pain syndrome; I10 Essential (primary) hypertension; J44.9 Chronic obstructive pulmonary disease, unspecified; K21.9 Gastro-esophageal reflux disease without esophagitis; K70.9 Alcoholic liver disease, unspecified; E83.42 Hypomagnesemia; G62.9 Polyneuropathy, unspecified; D69.6 Thrombocytopenia, unspecified; Z91.19 Patient's noncompliance with other medical treatment and regimen; Z79.899 Other long term (current) drug therapy; Z79.82 Long term (current) use of aspirin; Z87.81 Personal history of (healed) traumatic fracture; R06.89 Other abnormalities of breathing
CPT/HCPCS: 36415; 36600; 71045; 76700-TC; 80048; 80053; 82150-TC; 82803-TC; 83036; 83690-TC; 83735-TC; 85025; 85610-TC; 87081; 93005; 96365; 96366; 96375; 97110-GP; 97112-GP; 97116-GP; 97530-GP; 99285; G0378; G0482; J1644; J3411; J3475; J3490; J7030; J7613; Q0163; Q2037

== ENCOUNTER 2019-02-25 13:43 | Emergency (ER) | payer OTHER ==
[~2019-02-25] VITALS: Ht 167.6 cm; Wt 77.1 kg
[~2019-02-25 13:43] MED LIST changes: -ASPI-1155 PO; -CHLO25CA10 PO; +LIB10 PO; -LORA1TAB PO; +THIA50TA10 PO; +WELSR100 PO
--- NOTE | 2019-02-25 13:47 | NUR ---
Patient to ER bed 8 to gown for evaluation. Side rails up. Report given to
[2019-02-25 13:48] VITALS: BP_SYST 114
--- NOTE | 2019-02-25 13:48 | NUR ---
Patient is awake, alert, and oriented x4. Patient is slurring his speech, slow to answer, smells of alcohol and cigarettes. Patient states he has been drinking "a lot" of rum and orange juice. He fell out of his recliner and was found by his home health nurse. Patient is complaining of left shoulder and wrist pain.
--- NOTE | 2019-02-25 14:00 | NUR ---
2 unsuccessful IV attempts made. can sorterAmbreen made aware.
--- NOTE | 2019-02-25 14:18 | NUR ---
ER Dr. Bacon at bedside examining patient.
[2019-02-25] MEDS ORDERED: NACL 0.9% 1,000 ML IV ONE (14:30)
[2019-02-25] MEDS ORDERED: DIPHENHYDRAMINE INJ 50 MG/ML VIAL IVP ONE (15:45)
[2019-02-25] MEDS ORDERED: DIPHENHYDRAMINE INJ 50 MG/ML VIAL IM ONE (15:45)
--- NOTE | 2019-02-25 15:45 | NUR ---
Report from Dio COREAS. patient sitting up in [facility], requested blanket. IV discontinued, leaking at site. Dr. Bacon notified IV discontinued.
--- NOTE | 2019-02-25 16:15 | NUR ---
Patient given jeffy, apple juice & olive, patient request, okayed by Dr. Bacon.
--- NOTE | 2019-02-25 17:30 | NUR ---
[facility]
[2019-02-25] MEDS ORDERED: KETOROLAC TROMETHAMINE 60 MG/2 ML VIAL IM ONE (19:00)
--- NOTE | 2019-02-25 19:19 | NUR ---
Pt has been medicated with Toradol for lower back pain. Will continue to monitor.
--- NOTE | 2019-02-25 19:24 | NUR ---
Radiology at bedside for xray
--- NOTE | 2019-02-25 19:25 | NUR ---
Report given to Nicholas COREAS
--- NOTE | 2019-02-25 20:30 | NUR ---
Pt is resting in bed, no acute distress noted at this time. Will continue to monitor.
[2019-02-25 21:10] VITALS: BP_SYST 109
--- NOTE | 2019-02-25 21:11 | NUR ---
Patient given written and verbal discharge instructions and verbalizes understanding. ER MD discussed with patient the results and treatment provided. Patient in stable condition. ID arm band removed. IV catheter removed intact and dressing applied, no active bleeding. Patient educated on pain management and to follow up with PMD. Pain Scale 2. Opportunity for questions provided and answered. Medication side effect fact sheet provided. Pt was able to ambulate to wheelchair without assistance. States he wants to be discharged and will arrange transport via [employer] on his phone. Pt has been given all his belongings and discharge paperwork.
== END 2019-02-25 21:11 | disposition home or self-care (01) ==
LOC: SED 13:43
DX: F10.129 Alcohol abuse with intoxication, unspecified (principal); I10 Essential (primary) hypertension; Z79.899 Other long term (current) drug therapy; Y90.9 Presence of alcohol in blood, level not specified
CPT/HCPCS: 72100; 96372; 99283; J1200; J1885; J7030

== ENCOUNTER 2019-05-02 12:12 | Inpatient (IN) | payer OTHER ==
[~2019-05-02] VITALS: Ht 167.6 cm; Wt 77.1 kg
[2019-05-02 12:23] VITALS: BP_SYST 112
[2019-05-02] MEDS ORDERED: NACL 0.9% 1,000 ML IV ONE (12:49)
[2019-05-02] MEDS ORDERED: LORazepam 2 MG/ML VIAL IVP ONE (13:00)
[2019-05-02] MEDS ORDERED: FOLIC ACID 1 MG, THIAMINE HCL 100 MG, MAGNESIUM SULFATE 1 GM, MVI 10 ML in NACL 0.9% 1,... IV ONE (13:00)
[2019-05-02] MEDS ORDERED: FOLIC ACID 5 MG/ML VIAL IV ONE (13:13)
[2019-05-02] MEDS ORDERED: THIAMINE HCL 100 MG/ML VIAL ONE (13:13)
[2019-05-02] MEDS ORDERED: MVI 10 ML VIAL IV ONE (13:13)
[2019-05-02] MEDS ORDERED: MAGNESIUM SULFATE 1 GM/2 ML VIAL ONE (13:13)
[2019-05-02 13:42] LABS: BASOPHILS # (AUTO) 0.1 K/uL (0.0-0.2); BASOPHILS % (AUTO) 0.7 % (0.0-2.0); EOSINOPHILS % (AUTO) 0.3 % (0.0-4.0); HEMATOCRIT 38.6 % (36-54); HEMOGLOBIN 12.8 g/dL (14.0-18.0); LYMPHOCYTES # (AUTO) 1.9 K/uL (1.0-5.5); LYMPHOCYTES % (AUTO) 14.4 % (20.5-51.5); MEAN CORPUSCULAR HEMOGLOBIN 29 pg (27-31); MEAN CORPUSCULAR HGB CONC 33 % (32-36); MEAN CORPUSCULAR VOLUME 86 fL (79.0-98.0); MONOCYTES # (AUTO) 2.2 K/uL (0.0-1.0); MONOCYTES % (AUTO) 16.8 % (1.7-9.3); NEUTROPHILS # (AUTO) 9.1 K/uL (1.8-7.7); NEUTROPHILS % (AUTO) 67.8 % (40.0-70.0); PLATELET COUNT (AUTO) 235 K/uL (130-430); RED BLOOD CELL COUNT(AUTO) 4.48 MIL/uL (4.2-6.2); RED CELL DISTRIBUTION WIDTH 19.4 % (9.0-15.0); WHITE BLOOD COUNT (AUTO) 13.4 K/uL (4.8-10.8)
[2019-05-02 13:56] LABS: ANION GAP 20 (5-15); CALCIUM 8.4 mg/dL (8.4-11.0); CHLORIDE 96 mmol/L (98-107); CREATININE 1.13 mg/dL (0.55-1.30); GLUCOSE 112 mg/dL (70-99); POTASSIUM 3.8 mmol/L (3.5-5.1); SODIUM SERUM 138 mmol/L (136-145); UREA NITROGEN, BLOOD 16 mg/dL (8-21)
[2019-05-02 14:00] LABS: GFR AFRICAN AMERICAN 85 mL/min (>90)
[2019-05-02 14:03] LABS: ACETAMINOPHEN < 1 ug/mL (1-30); ALANINE AMINOTRANSFERASE 63 U/L (12-78); ALCOHOL, BLOOD 59 mg/dL (<10); AMYLASE 58 U/L (0-100); ASPARTATE AMINOTRANSFERASE 49 U/L (10-37); LIPASE 238 U/L (73-393)
[2019-05-02] MEDS ORDERED: NACL 0.9% 3,000 ML IV ONE (14:15)
[2019-05-02 14:18] LABS: PROTHROMBIN TIME 10.4 SECS (9.5-12.5)
[2019-05-02 15:08] LABS: BILIRUBIN,URINE NEGATIVE (NEGATIVE); BLOOD, URINE 2+ (NEGATIVE); CLARITY/URINE CLEAR (CLEAR); COLOR,URINE YELLOW (YELLOW); GLUCOSE,URINE NEGATIVE (NEGATIVE); KETONES,URINE 1+ (NEGATIVE); LEUKOCYTE ESTERASE ,URINE NEGATIVE (NEGATIVE); NITRITE, URINE NEGATIVE (NEGATIVE); PH,URINE 5.5 (5.0-8.0); PROTEIN URINE 2+ (NEGATIVE); UROBILINOGEN,URINE 0.2 (0.2-1.0)
[2019-05-02] MEDS ORDERED: MORPHINE 4 MG/ML INJ. SYRINGE IVP ONE (15:15)
[2019-05-02 15:20] LABS: BARBITURATE, URINE NEGATIVE (NEG <=200); BENZODIAZEPINE, URINE POSITIVE (NEG <=150); CANNABINOID, URINE NEGATIVE (NEG <=50); COCAINE, URINE NEGATIVE (NEG <=150); METHAMPHETAMINES SCREEN,URINE NEGATIVE (NEG <=500); OPIATE, URINE NEGATIVE (NEG <=100); PHENCYCLIDINE SCREEN,URINE NEGATIVE (NEG <=25); UR TRICYCLIC ANTIDEPRESSANTS NEGATIVE (NEG <=300); URINE AMPHETAMINE NEGATIVE (NEG <=500); URINE METHADONE NEGATIVE (NEG <=200); URINE OXYCODONE SCREEN NEGATIVE (NEG <=100); URINE PROPOXYPHENE SCREEN NEGATIVE (NEG <=300)
[2019-05-02 15:26] LABS: BACTERIA,URINE FEW /HPF (None Seen); HYALINE CASTS, URINE 0-10 /LPF (None Seen); MUCUS,URINE 3+ /LPF (None Seen); URINE AMORPHOUS URATE 1+ /HPF (None Seen); WBC,URINE 0-3 /HPF (0-3)
[2019-05-02] MEDS ORDERED: LORA-259 PO (15:39)
[2019-05-02] MEDS ORDERED: MULT-976 PO (15:39)
[2019-05-02] MEDS ORDERED: LIB25 PO (15:39)
[2019-05-02 18:31] VITALS: BP_SYST 129
[2019-05-02] MEDS ORDERED: ACETAMINOPHEN 325 MG TABLET PO PRN (18:45)
[2019-05-02] MEDS ORDERED: HYDROcodone/ACETAMIN 10-325 MG TAB PO PRN (18:45)
[2019-05-02] MEDS ORDERED: HYDROcodone/ACETAMIN 5-325 MG TAB (NORCO/ VICODIN) PO PRN ×2 (18:45→23:45)
[2019-05-02] MEDS ORDERED: DIPHENHYDRAMINE HCL 50 MG CAPSULE PO PRN (18:45)
[2019-05-02] MEDS ORDERED: DIPHENHYDRAMINE HCL 50 MG CAPSULE ONE (19:08)
[2019-05-02] MEDS ORDERED: HYDROcodone/ACETAMIN 10-325 MG TAB ONE (19:09)
[2019-05-02 20:00] VITALS: BP_SYST 131
[2019-05-02 22:30] VITALS: BP_SYST 127
[2019-05-02] MEDS ORDERED: LORazepam 1 MG TABLET PO PRN (23:45)
[2019-05-02] MEDS ORDERED: ALBUTEROL MDI INHALATION 8 GM INH INH PRN (23:45)
[2019-05-03] MEDS ORDERED: HYDROcodone/ACETAMIN 5-325 MG TAB (NORCO/ VICODIN) PO PRN
[2019-05-03] MEDS ORDERED: ACETAMINOPHEN 325 MG TABLET PO PRN
[2019-05-03] MEDS ORDERED: ONDANSETRON HCL 4 MG/2 ML VIAL IVP PRN
[2019-05-03 00:08] VITALS: BP_SYST 115
[2019-05-03 06:53] LABS: BASOPHILS % (AUTO) 0.5 % (0.0-2.0); EOSINOPHILS # (AUTO) 0.2 K/uL (0.0-0.4); EOSINOPHILS % (AUTO) 3.6 % (0.0-4.0); HEMATOCRIT 31.6 % (36-54); HEMOGLOBIN 10.6 g/dL (14.0-18.0); LYMPHOCYTES # (AUTO) 1.6 K/uL (1.0-5.5); LYMPHOCYTES % (AUTO) 29.2 % (20.5-51.5); MEAN CORPUSCULAR HEMOGLOBIN 29 pg (27-31); MEAN CORPUSCULAR HGB CONC 34 % (32-36); MEAN CORPUSCULAR VOLUME 87 fL (79.0-98.0); MONOCYTES # (AUTO) 1.2 K/uL (0.0-1.0); MONOCYTES % (AUTO) 21.1 % (1.7-9.3); NEUTROPHILS # (AUTO) 2.5 K/uL (1.8-7.7); NEUTROPHILS % (AUTO) 45.6 % (40.0-70.0); PLATELET COUNT (AUTO) 130 K/uL (130-430); RED BLOOD CELL COUNT(AUTO) 3.62 MIL/uL (4.2-6.2); RED CELL DISTRIBUTION WIDTH 18.9 % (9.0-15.0)
[2019-05-03] MEDS ORDERED: FOLIC ACID 1 MG, THIAMINE HCL 100 MG, MAGNESIUM SULFATE 1 GM, MVI 10 ML in NACL 0.9% 1,... IV SCH (07:00)
[2019-05-03 07:09] LABS: WHITE BLOOD COUNT (AUTO) 5.5 K/uL (4.8-10.8)
[2019-05-03 07:15] LABS: ALBUMIN 3.1 g/dL (3.4-4.8); CALCIUM 7.5 mg/dL (8.4-11.0); CREATININE 0.94 mg/dL (0.55-1.30); POTASSIUM 3.8 mmol/L (3.5-5.1); TOTAL BILIRUBIN 1.9 mg/dL (0.0-1.0)
[2019-05-03 08:01] VITALS: BP_SYST 135
[2019-05-03] MEDS ORDERED: ALBUTEROL SULFATE 0.083% 2.5 MG/3 ML VIAL.NEB INH PRN (08:15)
[2019-05-03] MEDS: GABAPENTIN 300 MG CAPSULE PO SCH ×3 (08:21→20:29)
[2019-05-03] MEDS: PANTOPRAZOLE SODIUM 40 MG TAB PO SCH (08:21)
[2019-05-03] MEDS: THIAMINE HCL 100 MG, MAGNESIUM SULFATE 1 GM in NS 100 ML IV SCH (08:21)
[2019-05-03] MEDS: FOLIC ACID 1 MG, MVI 10 ML in NACL 0.9% 1,000 ML IV SCH (08:21)
[2019-05-03] MEDS: ATORVASTATIN 20 MG TABLET PO SCH (08:22)
[2019-05-03] MEDS: METOPROLOL TARTRATE 25 MG TABLET PO SCH ×2 (08:23→20:30)
[2019-05-03] MEDS: HYDROcodone/ACETAMIN 10-325 MG TAB PO PRN ×2 (08:26→14:38)
[2019-05-03] MEDS ORDERED: FOLIC ACID 1 MG TABLET PO SCH (09:00)
[2019-05-03] MEDS ORDERED: MULTIVITAMINS TAB 1 TABLET PO SCH (09:00)
[2019-05-03] MEDS ORDERED: OMEPRAZOLE Non-Formulary 20 MG CAPSULE.DR PO SCH (09:00)
[2019-05-03] MEDS: chlordiazePOXIDE HCL 25 MG CAPSULE PO PRN (12:31)
[2019-05-03 12:35] VITALS: BP_SYST 127
[2019-05-03 16:34] VITALS: BP_SYST 116
[2019-05-03 20:00] VITALS: BP_SYST 124
[2019-05-03] MEDS: LORazepam 2 MG/ML VIAL IVP PRN (20:32)
[2019-05-04] MEDS: LORazepam 2 MG/ML VIAL IVP PRN ×2 (02:05→22:07)
[2019-05-04] MEDS: FOLIC ACID 1 MG, MVI 10 ML in NACL 0.9% 1,000 ML IV SCH (06:34)
[2019-05-04] MEDS: HYDROcodone/ACETAMIN 10-325 MG TAB PO PRN ×3 (06:34→20:15)
[2019-05-04] MEDS: THIAMINE HCL 100 MG, MAGNESIUM SULFATE 1 GM in NS 100 ML IV SCH (06:35)
[2019-05-04 06:37] LABS: CALCIUM 8.1 mg/dL (8.4-11.0); CREATININE 0.91 mg/dL (0.55-1.30); POTASSIUM 3.7 mmol/L (3.5-5.1)
[2019-05-04 07:18] LABS: BASOPHILS % (AUTO) 0.7 % (0.0-2.0); EOSINOPHILS # (AUTO) 0.2 K/uL (0.0-0.4); EOSINOPHILS % (AUTO) 3.5 % (0.0-4.0); HEMOGLOBIN 10.7 g/dL (14.0-18.0); LYMPHOCYTES # (AUTO) 1.6 K/uL (1.0-5.5); LYMPHOCYTES % (AUTO) 23.3 % (20.5-51.5); MEAN CORPUSCULAR HEMOGLOBIN 29 pg (27-31); MEAN CORPUSCULAR HGB CONC 34 % (32-36); MEAN CORPUSCULAR VOLUME 87 fL (79.0-98.0); MONOCYTES % (AUTO) 13.9 % (1.7-9.3); NEUTROPHILS % (AUTO) 58.6 % (40.0-70.0); PLATELET COUNT (AUTO) 128 K/uL (130-430); RED BLOOD CELL COUNT(AUTO) 3.66 MIL/uL (4.2-6.2); RED CELL DISTRIBUTION WIDTH 18.9 % (9.0-15.0); WHITE BLOOD COUNT (AUTO) 6.9 K/uL (4.8-10.8)
[2019-05-04 08:00] VITALS: BP_SYST 146
[2019-05-04] MEDS: PANTOPRAZOLE SODIUM 40 MG TAB PO SCH (08:25)
[2019-05-04] MEDS: GABAPENTIN 300 MG CAPSULE PO SCH ×3 (08:25→20:15)
[2019-05-04] MEDS: ATORVASTATIN 20 MG TABLET PO SCH (08:25)
[2019-05-04] MEDS: METOPROLOL TARTRATE 25 MG TABLET PO SCH ×2 (08:26→20:17)
[2019-05-04] MEDS ORDERED: THIAMINE HCL 100 MG TABLET PO SCH (09:00)
[2019-05-04 12:20] VITALS: BP_SYST 121
[2019-05-04] MEDS: chlordiazePOXIDE HCL 25 MG CAPSULE PO PRN (15:15)
[2019-05-04 16:15] VITALS: BP_SYST 145
[2019-05-04 18:23] VITALS: BP_SYST 145
[2019-05-04 20:13] VITALS: BP_SYST 133
[2019-05-05 00:15] VITALS: BP_SYST 120
[2019-05-05] MEDS: FOLIC ACID 1 MG, MVI 10 ML in NACL 0.9% 1,000 ML IV SCH (05:24)
[2019-05-05] MEDS: THIAMINE HCL 100 MG, MAGNESIUM SULFATE 1 GM in NS 100 ML IV SCH (05:24)
[2019-05-05 08:00] VITALS: BP_SYST 142
[2019-05-05 08:44] LABS: BASOPHILS % (AUTO) 0.5 % (0.0-2.0); EOSINOPHILS # (AUTO) 0.3 K/uL (0.0-0.4); EOSINOPHILS % (AUTO) 3.8 % (0.0-4.0); HEMATOCRIT 34.1 % (36-54); HEMOGLOBIN 11.6 g/dL (14.0-18.0); LYMPHOCYTES # (AUTO) 1.9 K/uL (1.0-5.5); LYMPHOCYTES % (AUTO) 23.5 % (20.5-51.5); MEAN CORPUSCULAR HEMOGLOBIN 29 pg (27-31); MEAN CORPUSCULAR HGB CONC 34 % (32-36); MEAN CORPUSCULAR VOLUME 86 fL (79.0-98.0); MONOCYTES # (AUTO) 0.7 K/uL (0.0-1.0); NEUTROPHILS # (AUTO) 5.1 K/uL (1.8-7.7); NEUTROPHILS % (AUTO) 63.2 % (40.0-70.0); PLATELET COUNT (AUTO) 116 K/uL (130-430); RED BLOOD CELL COUNT(AUTO) 3.95 MIL/uL (4.2-6.2); RED CELL DISTRIBUTION WIDTH 18.5 % (9.0-15.0); WHITE BLOOD COUNT (AUTO) 8.1 K/uL (4.8-10.8)
[2019-05-05 08:55] LABS: CALCIUM 8.7 mg/dL (8.4-11.0); CREATININE 0.91 mg/dL (0.55-1.30); POTASSIUM 3.7 mmol/L (3.5-5.1)
[2019-05-05] MEDS: METOPROLOL TARTRATE 25 MG TABLET PO SCH (10:23)
[2019-05-05] MEDS: ATORVASTATIN 20 MG TABLET PO SCH (10:23)
[2019-05-05] MEDS: GABAPENTIN 300 MG CAPSULE PO SCH (10:23)
[2019-05-05] MEDS: PANTOPRAZOLE SODIUM 40 MG TAB PO SCH (10:24)
[2019-05-05 11:17] VITALS: BP_SYST 142
== END 2019-05-05 11:50 | disposition home or self-care (01) | DRG 641 ==
LOC: SED 12:12 → SMU 17:38 → OBSVTOIN 05-04 19:35 → SMU 05-05 00:56
PROVIDERS: ADMIT Preventive Medicine Preventive Medicine/Occupational Environmental Medicine; ATTEND Preventive Medicine Preventive Medicine/Occupational Environmental Medicine
DX: E86.0 Dehydration (principal); R65.10 Systemic inflammatory response syndrome (SIRS) of non-infectious origin without acute organ dysfunction; I48.91 Unspecified atrial fibrillation; E87.2 Acidosis; I10 Essential (primary) hypertension; J44.9 Chronic obstructive pulmonary disease, unspecified; K74.60 Unspecified cirrhosis of liver; G47.33 Obstructive sleep apnea (adult) (pediatric); F32.9 Major depressive disorder, single episode, unspecified; E78.5 Hyperlipidemia, unspecified; R73.9 Hyperglycemia, unspecified; D64.9 Anemia, unspecified; D69.6 Thrombocytopenia, unspecified; E83.51 Hypocalcemia; F10.129 Alcohol abuse with intoxication, unspecified; Z79.899 Other long term (current) drug therapy
CPT/HCPCS: 36415; 71045; 80048; 80053; 80307; 81000-TC; 82150-TC; 82550-TC; 83605; 83690-TC; 84484; 85025; 85610-TC; 85730-TC; 87040-TC; 93005; 94640; 96365; 96375; 99285; G0378; G0480; G0481; G0482; J2060; J2270; J3411; J3475; J3490; J7030; J7613; Q0163

== ENCOUNTER 2019-05-06 11:45 | Emergency (ER) | payer OTHER ==
[~2019-05-06] VITALS: Ht 167.6 cm; Wt 77.1 kg
[2019-05-06 11:45] VITALS: BP_SYST 130
[~2019-05-06 11:45] MED LIST changes: -LIB10 PO; +LIB25 PO; +LORA-259 PO; +MULT-976 PO; -WELSR100 PO
[2019-05-06] MEDS ORDERED: LORazepam 1 MG TABLET PO ONE (13:15)
[2019-05-06] MEDS ORDERED: KETOROLAC TROMETHAMINE 60 MG/2 ML VIAL IM ONE (13:15)
[2019-05-06 14:28] VITALS: BP_SYST 135
== END 2019-05-06 14:00 | disposition home or self-care (01) ==
LOC: SED 11:45
DX: R19.7 Diarrhea, unspecified (principal); F32.9 Major depressive disorder, single episode, unspecified; I10 Essential (primary) hypertension; J44.9 Chronic obstructive pulmonary disease, unspecified; I48.91 Unspecified atrial fibrillation; F17.210 Nicotine dependence, cigarettes, uncomplicated; Z79.899 Other long term (current) drug therapy; Z71.6 Tobacco abuse counseling
CPT/HCPCS: 71045; 93005; 96372; 99283; J1885

== ENCOUNTER 2019-05-11 22:52 | Inpatient (IN) | payer OTHER ==
[~2019-05-11] VITALS: Ht 167.6 cm; Wt 79.4 kg
[2019-05-11 23:18] VITALS: BP_SYST 124
--- NOTE | 2019-05-11 23:18 | NUR ---
Placed in room 02 . Placed on oxyacetylene welder, blood pressure machine and pulse oximeter. To gown for exam. Side rails up. Report given to LYUDMILA GARZA
--- NOTE | 2019-05-11 23:30 | NUR ---
Dr. Jacques bedside Pt eval
[2019-05-11] MEDS ORDERED: DILTIAZEM HCL 25 MG/5 ML VIAL IVP ONE (23:45)
--- NOTE | 2019-05-12 | NUR ---
Pt BIBA to ED C/O CHEST PAIN STARTING AT 2200 NON RADIATING WITH SHORTNESS OF BREATH LAST ALCOHOL YESTERDAY RUM AND GATORADE. NO OTHER COMPLAINTS NOTED VSS NO S/S OF ACUTE DISTRESS RESTING ON GURNEY RAILS UP
[2019-05-12 00:39] LABS: BASOPHILS # (AUTO) 0.1 K/uL (0.0-0.2); BASOPHILS % (AUTO) 0.8 % (0.0-2.0); EOSINOPHILS # (AUTO) 0.2 K/uL (0.0-0.4); HEMATOCRIT 40.6 % (36-54); HEMOGLOBIN 13.6 g/dL (14.0-18.0); LYMPHOCYTES # (AUTO) 2.6 K/uL (1.0-5.5); LYMPHOCYTES % (AUTO) 24.3 % (20.5-51.5); MEAN CORPUSCULAR HEMOGLOBIN 29 pg (27-31); MEAN CORPUSCULAR HGB CONC 33 % (32-36); MEAN CORPUSCULAR VOLUME 87 fL (79.0-98.0); MONOCYTES # (AUTO) 1.4 K/uL (0.0-1.0); MONOCYTES % (AUTO) 12.9 % (1.7-9.3); NEUTROPHILS # (AUTO) 6.3 K/uL (1.8-7.7); PLATELET COUNT (AUTO) 264 K/uL (130-430); RED BLOOD CELL COUNT(AUTO) 4.69 MIL/uL (4.2-6.2); RED CELL DISTRIBUTION WIDTH 19.6 % (9.0-15.0); WHITE BLOOD COUNT (AUTO) 10.5 K/uL (4.8-10.8)
[2019-05-12 00:51] LABS: CALCIUM 8.2 mg/dL (8.4-11.0); CREATININE 1.02 mg/dL (0.55-1.30); POTASSIUM 3.7 mmol/L (3.5-5.1)
[2019-05-12 00:57] LABS: PROTHROMBIN TIME 10.4 SECS (9.5-12.5)
[2019-05-12 00:58] LABS: TOTAL BILIRUBIN 0.9 mg/dL (0.0-1.0)
--- NOTE | 2019-05-12 01:08 | NUR ---
Pt remains on cardiac monitoring s/p Cardizem IV adm, well tolerated
[2019-05-12] MEDS ORDERED: POTASSIUM CHLORIDE 20 MEQ TAB.PRT.SR PO ONE (01:45)
[2019-05-12] MEDS ORDERED: FOLIC ACID 1 MG, THIAMINE HCL 100 MG, MAGNESIUM SULFATE 1 GM, MVI 10 ML in NACL 0.9% 1,... IV ONE (01:45)
[2019-05-12] MEDS ORDERED: MAGNESIUM SULFATE 1 GM/2 ML VIAL ONE (02:11)
[2019-05-12] MEDS ORDERED: THIAMINE HCL 100 MG/ML VIAL ONE (02:11)
[2019-05-12] MEDS ORDERED: MVI 10 ML VIAL IV ONE (02:11)
[2019-05-12] MEDS ORDERED: FOLIC ACID 5 MG/ML VIAL IV ONE (02:11)
[2019-05-12] MEDS ORDERED: KETOROLAC TROMETHAMINE 15 MG VIAL IVP ONE (02:15)
--- NOTE | 2019-05-12 03:10 | NUR ---
Dr. Jacques bedside for Central Line Access procedure, Pt in stable condition
[2019-05-12] MEDS ORDERED: LORazepam 2 MG/ML VIAL ONE (03:41)
--- NOTE | 2019-05-12 03:45 | NUR ---
Central Line access established successfully with Triple Lumen cath, well tolerated
[2019-05-12] MEDS ORDERED: LORazepam 2 MG/ML VIAL IM ONE (04:00)
--- NOTE | 2019-05-12 04:16 | NUR ---
VSS no s/s of acute distress Resting on gurney rails up
[2019-05-12] MEDS ORDERED: BACITRACIN 1 GM OINT TP ONE (04:49)
--- NOTE | 2019-05-12 04:55 | NUR ---
Pt verbalized feeling slightly better
--- NOTE | 2019-05-12 06:05 | NUR ---
VSS no s/s of acute distress Resting on gurney rails up
[2019-05-12] MEDS ORDERED: fentaNYL CITRATE/PF 100 MCG/2 ML AMP IVP ONE (07:00)
[2019-05-12] MEDS ORDERED: fentaNYL CITRATE/PF 100 MCG/2 ML AMP ONE (07:04)
--- NOTE | 2019-05-12 07:06 | NUR ---
Report received from LYUDMILA Partida for continuation of care.
--- NOTE | 2019-05-12 07:32 | NUR ---
Medication reconciliation completed with information provided by patient. Any prior medication reconciliation on file was reviewed and corrected.
--- NOTE | 2019-05-12 08:00 | NUR ---
Patient will be admitted to care of Dr. Méndez. Admitted to telemetry unit. Will go to room 134B. Belongings list completed. Complete and up to date summary report printed. SBAR report to be given at bedside with opportunity for questions.
--- NOTE | 2019-05-12 08:10 | NUR ---
ADMISSION NOTE Received patient from ER via terrance, received report from FELY COREAS. Patient admitted with diagnosis of A FIB. Patient oriented to hospital routine, call light, toileting and safety-patient verbalized understanding.
--- NOTE | 2019-05-12 08:12 | NUR ---
Transfer to [facility] via ACLS protocol. Licensed nurse present. IV present no signs or symptoms of infiltration.
--- NOTE | 2019-05-12 08:20 | NUR ---
ADMISSION: RECEIVED PT FROM ER, A/A/OX4, DX:RISK FOR INJURY, R/T ALCOHOL ABUSE, VSS, AFEBRILE, ASSESSED WITH MILD TREMORS, AND ITCHING, BREATH SOUNDS ARE CLEAR, BREATHING UNLABORED, CENTRAL LINE TO RIGHT GROIN, TRIPLE LUMEN, PATENT, NO REDNESS OR SWELLING, SKIN INTACT, BELONGINGS NEXT TO BED IN SHOPPING CART, ORIENTED TO CALL LIGHT, PLACED WITHIN REACH, WILL CONT' TO MONITOR AND ASSESS.
[2019-05-12 08:27] VITALS: BP_SYST 130
[2019-05-12] MEDS ORDERED: chlordiazePOXIDE HCL 25 MG CAPSULE PO PRN (10:15)
[2019-05-12] MEDS ORDERED: BANANA BAG 1 EA, MVI 10 ML, THIAMINE HCL 100 MG, FOLIC ACID 1 MG, MAGNESIUM SULFATE 1 G... IV SCH ×5 (10:15)
[2019-05-12] MEDS ORDERED: ALBUTEROL MDI INHALATION 8 GM INH INH PRN (10:15)
[2019-05-12] MEDS: LORazepam 2 MG/ML VIAL IVP PRN (10:24)
--- NOTE | 2019-05-12 10:30 | NUR ---
ATIVAN: PT NOTED WITH TREMORS, AND ANXIETY, ATIVAN 1 MG IVP GIVEN, PT MADE COMFORTABLE, CALL LIGHT PLACED WITHIN REACH, WILL CONT' TO MONITOR AND ASSESS.
[2019-05-12] MEDS ORDERED: THIAMINE HCL 100 MG, MAGNESIUM SULFATE 1 GM in NS 100 ML IV SCH (12:00)
[2019-05-12] MEDS ORDERED: ALBUTEROL SULFATE 0.083% 2.5 MG/3 ML VIAL.NEB INH PRN (12:00)
[2019-05-12] MEDS ORDERED: FOLIC ACID 1 MG, MVI 10 ML in NACL 0.9% 1,000 ML IV SCH (12:00)
[2019-05-12] MEDS ORDERED: chlordiazePOXIDE HCL 25 MG CAPSULE PO SCH (12:15)
[2019-05-12] MEDS ORDERED: DIPHENHYDRAMINE HCL 25 MG CAPSULE PO PRN (12:15)
[2019-05-12 12:16] VITALS: BP_SYST 141
--- NOTE | 2019-05-12 13:00 | NUR ---
VISIT: AT BEDSIDE FOR ASSESSMENT OF PT, NEW ORDERS GIVEN, DISCUSSED POC, PT VERBALIZES UNDERSTANDING, WILL CONT' TO MONITOR AND ASSESS.
[2019-05-12] MEDS ORDERED: chlordiazePOXIDE HCL 25 MG CAPSULE PO ONE (13:45)
--- NOTE | 2019-05-12 15:00 | NUR ---
NURSES NOTES: PT REMAINS STABLE, NO S/S OF DISTRESS, VS WNL. NO C/O PAIN, NO CHANGES NOTED AT THIS TIME. WILL CONT' WITH POC.
[2019-05-12 16:09] VITALS: BP_SYST 129
--- NOTE | 2019-05-12 18:00 | NUR ---
END OF SHIFT: PT ASLEEP, EASILY AROUSED VIA VERBAL STIMULI, HAS NO C/O PAIN OR DISCOMFORT, CALL LIGHT PLACED WITHIN REACH, WILL ENDORSE TO POLICE COMMANDING OFFICER NURSE.
--- NOTE | 2019-05-12 19:30 | NUR ---
PM SHIFT ASSESSMENT Pt is awake and alert. Pt is on RA, RR even and unlabored. Skin warm and dry. IVF infusing. Safety precautions in place, call light within reach. Will continue to monitor.
[2019-05-12 20:10] VITALS: BP_SYST 131
[2019-05-12] MEDS: chlordiazePOXIDE HCL 25 MG CAPSULE PO SCH (20:24)
[2019-05-12] MEDS: METOPROLOL TARTRATE 25 MG TABLET PO SCH (20:24)
[2019-05-12] MEDS: cefTRIAXone 1 GM in D5W 50 ML IV SCH (20:24)
[2019-05-13 00:06] VITALS: BP_SYST 130
--- NOTE | 2019-05-13 02:55 | NUR ---
Pt resting in bed. VSS. No signs of SOB or acute distress noted. Safety precautions in place, call light within reach. Will continue to monitor.
[2019-05-13] MEDS: LORazepam 2 MG/ML VIAL IVP PRN (05:06)
[2019-05-13 06:09] VITALS: BP_SYST 130
[2019-05-13 06:28] LABS: BASOPHILS % (AUTO) 0.8 % (0.0-2.0); EOSINOPHILS # (AUTO) 0.2 K/uL (0.0-0.4); EOSINOPHILS % (AUTO) 3.6 % (0.0-4.0); HEMATOCRIT 34.6 % (36-54); HEMOGLOBIN 11.5 g/dL (14.0-18.0); LYMPHOCYTES # (AUTO) 1.7 K/uL (1.0-5.5); MEAN CORPUSCULAR HEMOGLOBIN 29 pg (27-31); MEAN CORPUSCULAR HGB CONC 33 % (32-36); MEAN CORPUSCULAR VOLUME 88 fL (79.0-98.0); MONOCYTES # (AUTO) 1.1 K/uL (0.0-1.0); MONOCYTES % (AUTO) 18.1 % (1.7-9.3); NEUTROPHILS % (AUTO) 49.5 % (40.0-70.0); PLATELET COUNT (AUTO) 165 K/uL (130-430); RED BLOOD CELL COUNT(AUTO) 3.93 MIL/uL (4.2-6.2); RED CELL DISTRIBUTION WIDTH 18.8 % (9.0-15.0)
[2019-05-13 06:31] LABS: ALBUMIN 3.3 g/dL (3.4-4.8); CREATININE 0.97 mg/dL (0.55-1.30); POTASSIUM 4.1 mmol/L (3.5-5.1); THYROID STIMULATING HORMONE 2.82 uIu/mL (0.36-3.74); TOTAL BILIRUBIN 1.3 mg/dL (0.0-1.0)
--- NOTE | 2019-05-13 07:20 | NUR ---
ENDORSEMENT Pt care endorsed to dayshift RN using nursing SBAR.
[2019-05-13 07:43] VITALS: BP_SYST 127
--- NOTE | 2019-05-13 07:43 | NUR ---
Opening note patient resting in bed, a/ox4, denies pain, assessment complete, right groin central line triple lumen in place, dressing is intact, clean, and dry, educated the patient leguillon debeader light system and plan of care, he verbalized understanding, continuing to monitor the patient, bed in lowest position, three side rails up, bed alarm on, call light within reach, fall and aspiration precautions in place, seizure precautions in place for alcohol withdrawal.
[2019-05-13] MEDS: chlordiazePOXIDE HCL 25 MG CAPSULE PO SCH ×3 (08:09→22:29)
[2019-05-13] MEDS: METOPROLOL TARTRATE 25 MG TABLET PO SCH ×2 (08:10→22:00)
--- NOTE | 2019-05-13 08:10 | NUR ---
Medication patient resting in bed, awake, eating breakfast, aspiration precautions in place, educated on medications uses and potential side effects, he verbalized understanding and tolerated well, continuing to monitor the patient, bed in lowest position, three side rails up, bed alarm on, call light within reach, fall, seizure precautions in place.
[2019-05-13] MEDS ORDERED: FOLIC ACID 1 MG TABLET PO SCH (09:00)
[2019-05-13] MEDS ORDERED: ATORVASTATIN 20 MG TABLET PO SCH (09:00)
[2019-05-13] MEDS ORDERED: PANTOPRAZOLE SODIUM 40 MG TAB PO SCH (09:00)
[2019-05-13] MEDS ORDERED: OMEPRAZOLE Non-Formulary 20 MG CAPSULE.DR PO SCH (09:00)
[2019-05-13] MEDS ORDERED: THIAMINE HCL 100 MG TABLET PO SCH (09:00)
--- NOTE | 2019-05-13 10:44 | NUR ---
Nutrition Update Foreign Scale 18 noted. Pt admitted for atr fibr rapid ventricular response. Diet: regular BMI: 28.2 kg/m2 RD to follow per nutrition care standards.
--- NOTE | 2019-05-13 10:49 | NUR ---
RN rounds/Pt refused seizure precautions patient resting in bed, denies pain, denies shortness of breath, patient is asking to go outside to smoke, informed him that he will need to sign a waiver and nurse can only take him outside when there is time, patient verbalizes understanding at this time, emptied patient's urinal, patient has no other needs at this time, bed in lowest position, two side rails up, call light within reach, fall and aspiration precautions in place. Patient refusing seizure precautions in place, educated him on need for seizure precautions, he still refuses at this time.
[2019-05-13 12:34] VITALS: BP_SYST 118
--- NOTE | 2019-05-13 12:34 | NUR ---
RN rounds patient resting in bed, awake, denies pain, denies shortness of breath, he is eating lunch, aspiration precautions in place, continuing to monitor, bed in lowest position, two side rails up, call light within reach, fall and aspiration precautions in place.
--- NOTE | 2019-05-13 14:43 | NUR ---
Spoke with Dr. Méndez patient asking to remove the central line that is in place to right groin, Dr. Méndez will come to see the patient first, will inform the patient.
--- NOTE | 2019-05-13 14:55 | NUR ---
RN rounds patient resting in bed, awake, informed the patient of conversation with Dr. Méndez, he verbalizes understanding. Educated the patient on scheduled medications uses and potential side effects, he verbalized understanding and tolerated well, continuing to monitor, bed in lowest position, two side rails up, call light within reach, fall and aspiration precautions in place.
--- NOTE | 2019-05-13 16:37 | NUR ---
RN rounds patient calling, asking for urinal to be emptied, assisted him, no other needs at this time, bed in lowest position, two side rails up, call light within reach, fall and aspiration precautions in place.
--- NOTE | 2019-05-13 17:30 | NUR ---
Spoke with Dr. Méndez requested Nicotine patch, which was ordered. Per MD, okay to removal central after 1800 dose of Rocephin tonight. Also patient is okay to ambulate. Will follow up.
[2019-05-13] MEDS: cefTRIAXone 1 GM in D5W 50 ML IV SCH (17:52)
[2019-05-13] MEDS ORDERED: NICOTINE 21 MG/24 HR PATCH.TD24 TD ONE (18:00)
--- NOTE | 2019-05-13 18:00 | NUR ---
Medication/Spoke with Dr. Méndez patient resting in bed, awake, informed him that Dr. Méndez would like to him to have one more dose of antibiotics prior to removal of central line, he verbalized understanding. Patient requesting for pain medication prior to removal of central line, spoke with Dr. Méndez who will put a one time order for pain medication prior to central line removal, informed patient that order was place, patient verbalized understanding. Educated the patient on IV antibiotics and nicotine patch uses and potential side effects, he verbalized understanding, central line is patent and infusing well, nicotine patch placed on right upper arm, continuing to monitor the patient, bed in lowest position, two side rails up, call light within reach, fall and aspiration precautions in place.
[2019-05-13] MEDS ORDERED: MORPHINE 2 MG/ML INJ. SYRINGE IVP ONE ×2 (18:15)
--- NOTE | 2019-05-13 18:45 | NUR ---
DC Central Line/Closing note explained Central line removal to the patient, he verbalized understanding, educated on IV pain medication uses and potential side effects, he verbalized understanding. Discontinued central line at this time, patient tolerated well, no active bleeding, dressing applied to the site. All other needs met, will endorse report to [facility] shift nurse, bed in lowest position, two side rails up, call light within reach, fall and aspiration precautions in place.
--- NOTE | 2019-05-14 01:10 | NUR ---
New Saline lock inserted in right wrist with Angiocath 22G after one attempt, utilizing sterile technique. Pt tolerated the procedure well.
[2019-05-14] MEDS: LORazepam 2 MG/ML VIAL IVP PRN ×2 (01:16→05:27)
--- NOTE | 2019-05-14 01:16 | NUR ---
Ativan 1mg given IV per pt's request for c/o anxiety.
--- NOTE | 2019-05-14 06:30 | NUR ---
Pt called and stated he has to leave at 0700 because his aunt yesterday. Pt was already dressing up in his street clothing. Pt was informed there is no discharge order yet, but pt stated he is not waiting for discharge order. Pt was informed he needs to sign leaving against medical advice form if he can't wait for his doctor to discharge him and pt stated he is not signing the form. Pt was getting verbally abusive and Security was contacted.
--- NOTE | 2019-05-14 06:36 | NUR ---
Pt left the hospital against medical advice fully awake, alert and oriented x4, ambulatory with all his belongings. Security was standing by while RN removed Angiocath in pt's right wrist intact and pressure dressing applied to the site. threat monitoring analyst was removed prior to pt leaving and given to the Weight Loss Counselor. Wrist ID band was removed and placed in the shredder. Security accompanied pt on pt's way out of the hospital. Addendum: 05/14/19 at 0712 by Maddie Perez RN Electric Motorman Annita was informed pt leaving AM.
--- NOTE | 2019-05-14 06:40 | NUR ---
Dr. Méndez was informed pt left against medical advice.
--- NOTE | 2019-05-14 06:45 | NUR ---
Dr. Olivares's exchange was notified of pt leaving AMA. Bonilla, the Answering Service stated she will notify Dr. Olivares at 0700.
[2019-05-14] MEDS ORDERED: NICOTINE 21 MG/24 HR PATCH.TD24 TD SCH (09:00)
== END 2019-05-14 06:36 | disposition left against medical advice (07) | DRG 309 ==
LOC: SED 22:52 → STU 05-12 02:51
PROVIDERS: ADMIT Internal Medicine; ATTEND Internal Medicine
PROC: 06HY33Z Insertion of Infusion Device into Lower Vein, Percutaneous Approach (ICD-10-PCS; principal; 2019-05-12)
PROC: B54BZZA Ultrasonography of Right Lower Extremity Veins, Guidance (ICD-10-PCS; 2019-05-12)
DX: I48.19 Other persistent atrial fibrillation (principal); R65.10 Systemic inflammatory response syndrome (SIRS) of non-infectious origin without acute organ dysfunction; F41.9 Anxiety disorder, unspecified; G47.33 Obstructive sleep apnea (adult) (pediatric); G62.9 Polyneuropathy, unspecified; I10 Essential (primary) hypertension; J44.9 Chronic obstructive pulmonary disease, unspecified; K70.9 Alcoholic liver disease, unspecified; L29.9 Pruritus, unspecified; F10.229 Alcohol dependence with intoxication, unspecified; Z79.899 Other long term (current) drug therapy; Z87.891 Personal history of nicotine dependence
CPT/HCPCS: 36415; 71045; 80053; 83735-TC; 83880; 84443-TC; 84484; 85025; 85610-TC; 85730-TC; 87081; 93005; 94640; 96365; 96375; 96376; 99285; C1751; G0378; G0482; J0696; J1885; J2060; J2270; J3010; J3411; J3475; J3490; J7030; J7060; J7613; Q0163

== ENCOUNTER 2019-05-24 06:31 | Emergency (ER) | payer OTHER ==
[~2019-05-24] VITALS: Ht 167.6 cm; Wt 79.4 kg
[2019-05-24 07:21] VITALS: BP_SYST 118
--- NOTE | 2019-05-24 08:05 | NUR ---
Patient to ER bed 2 to gown for evaluation. Side rails up. Report given to Lily COREAS.
--- NOTE | 2019-05-24 08:10 | NUR ---
Patient presents to ER C/O ETOH withdrawal. Patient A&Ox4, skin pink and warm, ambulatory to ER, pain 12/12, denies N/V/D. Patient states he was "partying yesterday and I drank too much". PT states he has pain all over.
--- NOTE | 2019-05-24 08:14 | NUR ---
EKG complete and given to Dr. Hoff to read. PT placed on head turbine operator and pulse-ox monitor.
[2019-05-24] MEDS ORDERED: FOLIC ACID 1 MG, THIAMINE HCL 100 MG, MAGNESIUM SULFATE 1 GM, MVI 10 ML in NACL 0.9% 1,... IV ONE (08:15)
--- NOTE | 2019-05-24 08:15 | NUR ---
ER Dr. Hoff at bedside examining patient.
[2019-05-24 08:48] LABS: BASOPHILS # (AUTO) 0.1 K/uL (0.0-0.2); BASOPHILS % (AUTO) 0.6 % (0.0-2.0); EOSINOPHILS # (AUTO) 0.1 K/uL (0.0-0.4); HEMATOCRIT 40.3 % (36-54); LYMPHOCYTES # (AUTO) 2.5 K/uL (1.0-5.5); LYMPHOCYTES % (AUTO) 21.4 % (20.5-51.5); MEAN CORPUSCULAR HEMOGLOBIN 28 pg (27-31); MEAN CORPUSCULAR HGB CONC 32 % (32-36); MEAN CORPUSCULAR VOLUME 87 fL (79.0-98.0); MONOCYTES # (AUTO) 1.6 K/uL (0.0-1.0); MONOCYTES % (AUTO) 13.4 % (1.7-9.3); NEUTROPHILS # (AUTO) 7.5 K/uL (1.8-7.7); NEUTROPHILS % (AUTO) 63.6 % (40.0-70.0); PLATELET COUNT (AUTO) 285 K/uL (130-430); RED BLOOD CELL COUNT(AUTO) 4.61 MIL/uL (4.2-6.2); RED CELL DISTRIBUTION WIDTH 19.3 % (9.0-15.0); WHITE BLOOD COUNT (AUTO) 11.9 K/uL (4.8-10.8)
[2019-05-24 09:01] LABS: ANION GAP 10 (5-15); CALCIUM 8.8 mg/dL (8.4-11.0); CHLORIDE 98 mmol/L (98-107); CREATININE 0.93 mg/dL (0.55-1.30); GLUCOSE 84 mg/dL (70-99); POTASSIUM 3.4 mmol/L (3.5-5.1); SODIUM SERUM 137 mmol/L (136-145); UREA NITROGEN, BLOOD 17 mg/dL (8-21)
[2019-05-24 09:07] LABS: ALANINE AMINOTRANSFERASE 154 U/L (12-78); ALBUMIN 3.7 g/dL (3.4-4.8); ASPARTATE AMINOTRANSFERASE 72 U/L (10-37); TOTAL BILIRUBIN 0.8 mg/dL (0.0-1.0)
[2019-05-24 09:22] LABS: ACETAMINOPHEN < 1 ug/mL (1-30); ALCOHOL, BLOOD < 3 mg/dL (<10); GFR AFRICAN AMERICAN 107 mL/min (>90)
--- NOTE | 2019-05-24 10:30 | NUR ---
Patient asleep in [facility]
[2019-05-24 10:38] LABS: BARBITURATE, URINE NEGATIVE (NEG <=200); BENZODIAZEPINE, URINE POSITIVE (NEG <=150); CANNABINOID, URINE NEGATIVE (NEG <=50); COCAINE, URINE NEGATIVE (NEG <=150); METHAMPHETAMINES SCREEN,URINE NEGATIVE (NEG <=500); OPIATE, URINE NEGATIVE (NEG <=100); PHENCYCLIDINE SCREEN,URINE NEGATIVE (NEG <=25); UR TRICYCLIC ANTIDEPRESSANTS NEGATIVE (NEG <=300); URINE AMPHETAMINE NEGATIVE (NEG <=500); URINE METHADONE NEGATIVE (NEG <=200); URINE OXYCODONE SCREEN NEGATIVE (NEG <=100); URINE PROPOXYPHENE SCREEN NEGATIVE (NEG <=300)
--- NOTE | 2019-05-24 13:15 | NUR ---
Attempted to discharge patient at this time , pt states he feels weak , he has pain 8/10, also c/o mild chest pressure, pt VS stable, HR is [address] Hoff is patient's baseline , respirations are even and unlabored, no N/V Noted,MD notified, charge nurse notified.
--- NOTE | 2019-05-24 13:30 | NUR ---
vp celebrity services called to BS
--- NOTE | 2019-05-24 13:35 | NUR ---
Sanaz GEORGE at bedside with patient.
[2019-05-24 14:00] VITALS: BP_SYST 151
--- NOTE | 2019-05-24 14:00 | NUR ---
Patient given written and verbal discharge instructions and verbalizes understanding. ER MD discussed with patient the results and treatment provided. Patient in stable condition. ID arm band removed. IV catheter removed intact and dressing applied, no active bleeding. Rx of Xanax given. Patient educated on pain management and to follow up with PMD. Pain Scale 2/10 tolerable for pt. Opportunity for questions provided and answered. Medication side effect fact sheet provided.
--- NOTE | 2019-05-24 14:12 | NUR ---
Social Service Note: MAT TESTER called to meet with pt; pt is known to MAT TESTER from previous admissions. MAT TESTER met with pt at bedside. Pt states that is wanting to get to a "[facility]"; MAT TESTER asked pt if he meant a chcf facility; pt stated yes; MAT TESTER alerted pt that he would need to qualify medically and have a doctors order for a chcf facility. MAT TESTER spoke with pt about his refusals in the past for placement. Pt states that he wants to go now. Pt states that he is feeling depressed. MAT TESTER asked pt if he was having suicidal ideations; pt stated "no". MAT TESTER spoke with ED physician; ED physician states that pt does not have any admission criteria. MAT TESTER went back to pt to alert him that he would be discharged home. MAT TESTER provided pt with outpatient mental health providers, substance abuse treatment facilities, senior services, and caregiver brochures. Pt became upset stating that he did not want any of the resources. Pt stated that he needs help. MAT TESTER spoke with pt at length about calling one of the outpatient mental health providers to get set up with a therapist; pt stated that he did not want to make any phone calls. MAT TESTER spoke with pt about his drinking; pt states he has been drinking, but not daily. Pt will not quantify how much he has been drinking. Pt states that he drives to the store to buy alcohol. MAT TESTER spoke wit pt that if he is able to drive to the store he could drive to a therapist appointment. Pt again became upset stating he wants to be admitted to the hospital. MAT TESTER spoke with physician again who stated that pt does not meet criteria to be admitted. MAT TESTER left resources at bedside for pt. MAT TESTER will follow up as needed.
== END 2019-05-24 14:00 | disposition home or self-care (01) ==
LOC: SED 06:31
DX: F10.239 Alcohol dependence with withdrawal, unspecified (principal); J44.9 Chronic obstructive pulmonary disease, unspecified; I10 Essential (primary) hypertension; F41.9 Anxiety disorder, unspecified; G47.30 Sleep apnea, unspecified; F17.200 Nicotine dependence, unspecified, uncomplicated; Z86.73 Personal history of transient ischemic attack (TIA), and cerebral infarction without residual deficits; Z79.899 Other long term (current) drug therapy; Z85.07 Personal history of malignant neoplasm of pancreas; Z87.19 Personal history of other diseases of the digestive system; Y90.0 Blood alcohol level of less than 20 mg/100 ml
CPT/HCPCS: 36415; 80053; 80307; 85025; 93005; 96365; 96366; 99284; G0480; G0481; G0482; J3411; J3475; J3490; J7030

== ENCOUNTER 2019-06-04 21:03 | Inpatient (IN) | payer OTHER ==
[~2019-06-04] VITALS: Ht 167.6 cm; Wt 78.5 kg
[2019-06-04 21:03] VITALS: BP_SYST 139
[2019-06-04 22:06] LABS: BASOPHILS # (AUTO) 0.1 K/uL (0.0-0.2); BASOPHILS % (AUTO) 0.7 % (0.0-2.0); EOSINOPHILS % (AUTO) 0.2 % (0.0-4.0); HEMATOCRIT 41.6 % (36-54); HEMOGLOBIN 13.3 g/dL (14.0-18.0); LYMPHOCYTES # (AUTO) 1.4 K/uL (1.0-5.5); LYMPHOCYTES % (AUTO) 12.5 % (20.5-51.5); MEAN CORPUSCULAR HEMOGLOBIN 29 pg (27-31); MEAN CORPUSCULAR HGB CONC 32 % (32-36); MEAN CORPUSCULAR VOLUME 90 fL (79.0-98.0); MONOCYTES # (AUTO) 1.1 K/uL (0.0-1.0); MONOCYTES % (AUTO) 9.7 % (1.7-9.3); NEUTROPHILS # (AUTO) 8.4 K/uL (1.8-7.7); NEUTROPHILS % (AUTO) 76.9 % (40.0-70.0); PLATELET COUNT (AUTO) 177 K/uL (130-430); RED BLOOD CELL COUNT(AUTO) 4.61 MIL/uL (4.2-6.2); RED CELL DISTRIBUTION WIDTH 19.5 % (9.0-15.0)
[2019-06-04 22:19] LABS: ANION GAP 27 (5-15); CHLORIDE 91 mmol/L (98-107); CREATININE 1.17 mg/dL (0.55-1.30); GLUCOSE 57 mg/dL (70-99); POTASSIUM 3.8 mmol/L (3.5-5.1); SODIUM SERUM 136 mmol/L (136-145); UREA NITROGEN, BLOOD 15 mg/dL (8-21)
[2019-06-04 22:27] LABS: ALANINE AMINOTRANSFERASE 113 U/L (12-78); ALBUMIN 3.8 g/dL (3.4-4.8); ASPARTATE AMINOTRANSFERASE 112 U/L (10-37); TOTAL BILIRUBIN 2.5 mg/dL (0.0-1.0)
[2019-06-04 22:29] LABS: ALCOHOL, BLOOD < 3 mg/dL (<10); GFR AFRICAN AMERICAN 82 mL/min (>90)
[2019-06-04] MEDS ORDERED: DILTIAZEM HCL 25 MG/5 ML VIAL IVP ONE (22:30)
[2019-06-04] MEDS ORDERED: NACL 0.9% 1,000 ML IV ONE (23:45)
[2019-06-04] MEDS ORDERED: DILTIAZEM HCL 125 MG in D5W 100 ML IV ONE (23:45)
[2019-06-05] VITALS (17 sets, daily range): BP systolic 85–125
[2019-06-05] MEDS ORDERED: DILTIAZEM HCL 125 MG/25 ML VIAL IV ONE (00:25)
[2019-06-05] MEDS ORDERED: DILTIAZEM HCL 125 MG in D5W 100 ML IV PRN (04:15)
[2019-06-05 12:38] LABS: INR 1.1 (0.80-1.20)
[2019-06-05] MEDS ORDERED: ALBUTEROL SULFATE 0.083% 2.5 MG/3 ML VIAL.NEB INH PRN (13:00)
[2019-06-05] MEDS ORDERED: ONDANSETRON HCL 4 MG/2 ML VIAL IVP PRN (13:00)
[2019-06-05] MEDS ORDERED: ACETAMINOPHEN 325 MG TABLET PO PRN (13:00)
[2019-06-05] MEDS ORDERED: LORazepam 2 MG/ML VIAL IVP PRN (13:00)
[2019-06-05] MEDS: NORMAL SALINE 5 ML DISP.SYRIN IVF SCH ×4 (13:42→20:53)
[2019-06-05] MEDS: HYDROcodone/ACETAMIN 10-325 MG TAB PO PRN (15:09)
[2019-06-05] MEDS: GABAPENTIN 300 MG CAPSULE PO SCH ×2 (15:09→20:52)
[2019-06-05] MEDS ORDERED: NICOTINE 21 MG/24 HR PATCH.TD24 TD ONE (17:00)
[2019-06-05] MEDS: LORazepam 1 MG TABLET PO SCH (17:13)
[2019-06-05] MEDS: chlordiazePOXIDE HCL 25 MG CAPSULE PO SCH (20:52)
[2019-06-05] MEDS: METOPROLOL TARTRATE 25 MG TABLET PO SCH (20:52)
[2019-06-06] VITALS (16 sets, daily range): BP systolic 89–115
[2019-06-06] MEDS: DILTIAZEM HCL 30 MG TABLET PO SCH ×4 (00:07→17:52)
[2019-06-06] MEDS: HYDROcodone/ACETAMIN 10-325 MG TAB PO PRN ×3 (03:24→22:07)
[2019-06-06] MEDS: NORMAL SALINE 5 ML DISP.SYRIN IVF SCH ×5 (05:49→21:59)
[2019-06-06 06:01] LABS: BASOPHILS % (AUTO) 0.3 % (0.0-2.0); EOSINOPHILS # (AUTO) 0.1 K/uL (0.0-0.4); EOSINOPHILS % (AUTO) 2.2 % (0.0-4.0); HEMATOCRIT 34.6 % (36-54); HEMOGLOBIN 11.2 g/dL (14.0-18.0); LYMPHOCYTES # (AUTO) 1.5 K/uL (1.0-5.5); LYMPHOCYTES % (AUTO) 27.2 % (20.5-51.5); MEAN CORPUSCULAR HEMOGLOBIN 29 pg (27-31); MEAN CORPUSCULAR HGB CONC 32 % (32-36); MEAN CORPUSCULAR VOLUME 90 fL (79.0-98.0); MONOCYTES # (AUTO) 0.6 K/uL (0.0-1.0); MONOCYTES % (AUTO) 10.6 % (1.7-9.3); NEUTROPHILS # (AUTO) 3.3 K/uL (1.8-7.7); PLATELET COUNT (AUTO) 75 K/uL (130-430); RED BLOOD CELL COUNT(AUTO) 3.87 MIL/uL (4.2-6.2); RED CELL DISTRIBUTION WIDTH 18.8 % (9.0-15.0); WHITE BLOOD COUNT (AUTO) 5.5 K/uL (4.8-10.8)
[2019-06-06 07:06] LABS: CALCIUM 8.7 mg/dL (8.4-11.0); CREATININE 1.2 mg/dL (0.55-1.30); PHOSPHORUS 2.2 mg/dL (2.7-4.5); POTASSIUM 3.5 mmol/L (3.5-5.1); TOTAL BILIRUBIN 1.4 mg/dL (0.0-1.0)
[2019-06-06] MEDS: FOLIC ACID 1 MG TABLET PO SCH (08:36)
[2019-06-06] MEDS: chlordiazePOXIDE HCL 25 MG CAPSULE PO SCH ×2 (08:36→21:55)
[2019-06-06] MEDS: THIAMINE HCL 100 MG TABLET PO SCH (08:36)
[2019-06-06] MEDS: LORazepam 1 MG TABLET PO SCH ×3 (08:37→22:06)
[2019-06-06] MEDS: GABAPENTIN 300 MG CAPSULE PO SCH ×3 (08:37→21:55)
[2019-06-06] MEDS: MULTIVITAMINS TAB 1 TABLET PO SCH (08:37)
[2019-06-06] MEDS: PANTOPRAZOLE SODIUM 40 MG TAB PO SCH (08:37)
[2019-06-06] MEDS: NICOTINE 21 MG/24 HR PATCH.TD24 TD SCH (08:40)
[2019-06-06] MEDS: ATORVASTATIN 20 MG TABLET PO SCH (08:43)
[2019-06-06] MEDS: METOPROLOL TARTRATE 25 MG TABLET PO SCH ×2 (09:00→21:58)
[2019-06-06] MEDS ORDERED: MAGNESIUM SULFATE 50 ML IV ONE (09:15)
[2019-06-06] MEDS ORDERED: K PHOS 15 MM in NS 250 ML IV ONE (10:00)
[2019-06-06 11:23] LABS: NEUTROPHILS % (AUTO) 59.7 % (40.0-70.0)
[2019-06-07 01:25] VITALS: BP_SYST 98
[2019-06-07] MEDS: DILTIAZEM HCL 30 MG TABLET PO SCH ×4 (06:00→17:59)
[2019-06-07] MEDS: NORMAL SALINE 5 ML DISP.SYRIN IVF SCH ×3 (06:39→21:22)
[2019-06-07 07:40] VITALS: BP_SYST 107
[2019-06-07 08:11] LABS: BASOPHILS % (AUTO) 0.3 % (0.0-2.0); EOSINOPHILS # (AUTO) 0.1 K/uL (0.0-0.4); HEMATOCRIT 32.5 % (36-54); HEMOGLOBIN 10.6 g/dL (14.0-18.0); LYMPHOCYTES # (AUTO) 1.2 K/uL (1.0-5.5); LYMPHOCYTES % (AUTO) 26.1 % (20.5-51.5); MEAN CORPUSCULAR HEMOGLOBIN 29 pg (27-31); MEAN CORPUSCULAR HGB CONC 33 % (32-36); MEAN CORPUSCULAR VOLUME 89 fL (79.0-98.0); MONOCYTES # (AUTO) 0.4 K/uL (0.0-1.0); NEUTROPHILS # (AUTO) 2.9 K/uL (1.8-7.7); NEUTROPHILS % (AUTO) 61.6 % (40.0-70.0); RED BLOOD CELL COUNT(AUTO) 3.65 MIL/uL (4.2-6.2); RED CELL DISTRIBUTION WIDTH 18.9 % (9.0-15.0); WHITE BLOOD COUNT (AUTO) 4.7 K/uL (4.8-10.8)
[2019-06-07 08:13] LABS: ALBUMIN 3.1 g/dL (3.4-4.8); CALCIUM 9.1 mg/dL (8.4-11.0); CREATININE 1.26 mg/dL (0.55-1.30); POTASSIUM 3.6 mmol/L (3.5-5.1); TOTAL BILIRUBIN 0.9 mg/dL (0.0-1.0)
[2019-06-07 08:38] LABS: PLATELET COUNT (AUTO) 62 K/uL (130-430)
[2019-06-07] MEDS: MULTIVITAMINS TAB 1 TABLET PO SCH (08:56)
[2019-06-07] MEDS: ATORVASTATIN 20 MG TABLET PO SCH (08:56)
[2019-06-07] MEDS: THIAMINE HCL 100 MG TABLET PO SCH (08:56)
[2019-06-07] MEDS: GABAPENTIN 300 MG CAPSULE PO SCH ×3 (08:57→21:20)
[2019-06-07] MEDS: FOLIC ACID 1 MG TABLET PO SCH (08:57)
[2019-06-07] MEDS: chlordiazePOXIDE HCL 25 MG CAPSULE PO SCH ×2 (08:57→21:19)
[2019-06-07] MEDS: PANTOPRAZOLE SODIUM 40 MG TAB PO SCH (08:57)
[2019-06-07] MEDS: METOPROLOL TARTRATE 25 MG TABLET PO SCH ×2 (08:58→21:00)
[2019-06-07] MEDS: NICOTINE 21 MG/24 HR PATCH.TD24 TD SCH (08:58)
[2019-06-07 12:32] VITALS: BP_SYST 102
[2019-06-07 16:48] VITALS: BP_SYST 110
[2019-06-07 20:00] VITALS: BP_SYST 94
[2019-06-07] MEDS: HYDROcodone/ACETAMIN 10-325 MG TAB PO PRN (21:20)
[2019-06-08 00:20] VITALS: BP_SYST 107
[2019-06-08] MEDS: DILTIAZEM HCL 30 MG TABLET PO SCH ×5 (00:21→23:34)
[2019-06-08] MEDS: NORMAL SALINE 5 ML DISP.SYRIN IVF SCH ×3 (06:53→21:18)
[2019-06-08 07:11] LABS: BASOPHILS % (AUTO) 0.3 % (0.0-2.0); EOSINOPHILS # (AUTO) 0.1 K/uL (0.0-0.4); EOSINOPHILS % (AUTO) 2.3 % (0.0-4.0); HEMATOCRIT 32.2 % (36-54); HEMOGLOBIN 10.7 g/dL (14.0-18.0); LYMPHOCYTES # (AUTO) 1.5 K/uL (1.0-5.5); LYMPHOCYTES % (AUTO) 28.8 % (20.5-51.5); MEAN CORPUSCULAR HEMOGLOBIN 29 pg (27-31); MEAN CORPUSCULAR HGB CONC 33 % (32-36); MEAN CORPUSCULAR VOLUME 88 fL (79.0-98.0); MONOCYTES # (AUTO) 0.5 K/uL (0.0-1.0); MONOCYTES % (AUTO) 9.9 % (1.7-9.3); NEUTROPHILS % (AUTO) 58.7 % (40.0-70.0); PLATELET COUNT (AUTO) 59 K/uL (130-430); RED BLOOD CELL COUNT(AUTO) 3.65 MIL/uL (4.2-6.2); RED CELL DISTRIBUTION WIDTH 19.1 % (9.0-15.0); WHITE BLOOD COUNT (AUTO) 5.1 K/uL (4.8-10.8)
[2019-06-08 08:00] VITALS: BP_SYST 123
[2019-06-08] MEDS: ATORVASTATIN 20 MG TABLET PO SCH (08:19)
[2019-06-08] MEDS: NICOTINE 21 MG/24 HR PATCH.TD24 TD SCH (08:19)
[2019-06-08] MEDS: THIAMINE HCL 100 MG TABLET PO SCH (08:20)
[2019-06-08] MEDS: MULTIVITAMINS TAB 1 TABLET PO SCH (08:20)
[2019-06-08] MEDS: PANTOPRAZOLE SODIUM 40 MG TAB PO SCH (08:20)
[2019-06-08] MEDS: GABAPENTIN 300 MG CAPSULE PO SCH ×3 (08:20→21:18)
[2019-06-08] MEDS: chlordiazePOXIDE HCL 25 MG CAPSULE PO SCH ×2 (08:20→21:17)
[2019-06-08] MEDS: FOLIC ACID 1 MG TABLET PO SCH (08:20)
[2019-06-08] MEDS: METOPROLOL TARTRATE 25 MG TABLET PO SCH ×2 (08:21→21:17)
[2019-06-08 08:32] LABS: CALCIUM 7.9 mg/dL (8.4-11.0); CREATININE 0.97 mg/dL (0.55-1.30); POTASSIUM 3.2 mmol/L (3.5-5.1)
[2019-06-08 11:42] VITALS: BP_SYST 89
[2019-06-08 15:09] VITALS: BP_SYST 94
[2019-06-08] MEDS ORDERED: CAR30 PO (19:01)
[2019-06-08] MEDS ORDERED: NICO-681 TD (19:01)
[2019-06-08] MEDS ORDERED: CALCIUM CARBONATE 500 MG/ TAB.CHEW PO ONE (21:00)
[2019-06-08] MEDS ORDERED: POTASSIUM CHLORIDE 20 MEQ TAB.PRT.SR PO ONE (21:00)
[2019-06-08 21:15] VITALS: BP_SYST 118
[2019-06-08] MEDS: HYDROcodone/ACETAMIN 5-325 MG TAB (NORCO/ VICODIN) PO PRN (23:35)
[2019-06-09 02:00] VITALS: BP_SYST 120
[2019-06-09] MEDS: DILTIAZEM HCL 30 MG TABLET PO SCH ×3 (05:31→17:38)
[2019-06-09] MEDS: NORMAL SALINE 5 ML DISP.SYRIN IVF SCH ×2 (05:31→14:13)
[2019-06-09 08:00] VITALS: BP_SYST 106
[2019-06-09 08:07] LABS: BASOPHILS % (AUTO) 0.6 % (0.0-2.0); EOSINOPHILS # (AUTO) 0.2 K/uL (0.0-0.4); EOSINOPHILS % (AUTO) 2.7 % (0.0-4.0); HEMATOCRIT 33.2 % (36-54); HEMOGLOBIN 11.1 g/dL (14.0-18.0); LYMPHOCYTES # (AUTO) 1.6 K/uL (1.0-5.5); LYMPHOCYTES % (AUTO) 26.9 % (20.5-51.5); MEAN CORPUSCULAR HEMOGLOBIN 30 pg (27-31); MEAN CORPUSCULAR HGB CONC 33 % (32-36); MEAN CORPUSCULAR VOLUME 89 fL (79.0-98.0); MONOCYTES # (AUTO) 0.8 K/uL (0.0-1.0); MONOCYTES % (AUTO) 13.8 % (1.7-9.3); NEUTROPHILS # (AUTO) 3.3 K/uL (1.8-7.7); PLATELET COUNT (AUTO) 74 K/uL (130-430); RED BLOOD CELL COUNT(AUTO) 3.75 MIL/uL (4.2-6.2); RED CELL DISTRIBUTION WIDTH 19.1 % (9.0-15.0); WHITE BLOOD COUNT (AUTO) 5.9 K/uL (4.8-10.8)
[2019-06-09 08:10] LABS: CALCIUM 8.9 mg/dL (8.4-11.0); CREATININE 0.9 mg/dL (0.55-1.30)
[2019-06-09] MEDS: FOLIC ACID 1 MG TABLET PO SCH (08:19)
[2019-06-09] MEDS: ATORVASTATIN 20 MG TABLET PO SCH (08:20)
[2019-06-09] MEDS: MULTIVITAMINS TAB 1 TABLET PO SCH (08:20)
[2019-06-09] MEDS: GABAPENTIN 300 MG CAPSULE PO SCH ×2 (08:20→14:13)
[2019-06-09] MEDS: chlordiazePOXIDE HCL 25 MG CAPSULE PO SCH (08:21)
[2019-06-09] MEDS: PANTOPRAZOLE SODIUM 40 MG TAB PO SCH (08:21)
[2019-06-09] MEDS: METOPROLOL TARTRATE 25 MG TABLET PO SCH (08:21)
[2019-06-09] MEDS: NICOTINE 21 MG/24 HR PATCH.TD24 TD SCH (08:21)
[2019-06-09] MEDS: THIAMINE HCL 100 MG TABLET PO SCH (08:21)
[2019-06-09] MEDS: HYDROcodone/ACETAMIN 10-325 MG TAB PO PRN (08:29)
[2019-06-09 12:39] VITALS: BP_SYST 95
[2019-06-09] MEDS: HYDROcodone/ACETAMIN 5-325 MG TAB (NORCO/ VICODIN) PO PRN (14:13)
[2019-06-09 16:10] VITALS: BP_SYST 101
[2019-06-09 17:38] VITALS: BP_SYST 90
[2019-06-09 20:45] VITALS: BP_SYST 106
== END 2019-06-09 20:55 | disposition home health service (06) | DRG 309 ==
LOC: SED 21:03 → SIC 06-05 04:01 → STU 06-06 14:06
PROVIDERS: ADMIT Preventive Medicine Preventive Medicine/Occupational Environmental Medicine; ATTEND Preventive Medicine Preventive Medicine/Occupational Environmental Medicine
DX: I48.0 Paroxysmal atrial fibrillation (principal); E44.0 Moderate protein-calorie malnutrition; E87.1 Hypo-osmolality and hyponatremia; J44.9 Chronic obstructive pulmonary disease, unspecified; I10 Essential (primary) hypertension; F41.9 Anxiety disorder, unspecified; F10.10 Alcohol abuse, uncomplicated; G47.30 Sleep apnea, unspecified; I25.10 Atherosclerotic heart disease of native coronary artery without angina pectoris; K76.0 Fatty (change of) liver, not elsewhere classified; R74.0 Nonspecific elevation of levels of transaminase and lactic acid dehydrogenase [LDH]; E83.52 Hypercalcemia; E87.6 Hypokalemia; G62.9 Polyneuropathy, unspecified; D69.6 Thrombocytopenia, unspecified; D64.9 Anemia, unspecified; K70.30 Alcoholic cirrhosis of liver without ascites; I27.20 Pulmonary hypertension, unspecified; E78.5 Hyperlipidemia, unspecified; E83.39 Other disorders of phosphorus metabolism; Z68.27 Body mass index [BMI] 27.0-27.9, adult; Z79.899 Other long term (current) drug therapy; Z87.891 Personal history of nicotine dependence
CPT/HCPCS: 36415; 71045; 80048; 80053; 80061; 82550-TC; 83735-TC; 84100-TC; 84484; 85025; 85610-TC; 87081; 93005; 93306; 96365; 96366; 96375; 99285; G0378; G0482; J3475; J3490; J7030; J7040; J7050; J7060

== ENCOUNTER 2019-06-15 12:03 | Emergency (ER) | payer OTHER ==
[~2019-06-15] VITALS: Ht 180.3 cm; Wt 79.4 kg
[~2019-06-15 12:03] MED LIST changes: +CAR30 PO; +NICO-681 TD
[2019-06-15 12:15] VITALS: BP_SYST 121
--- NOTE | 2019-06-15 12:55 | NUR ---
Patient to ER bed 08 to gown for evaluation. Side rails up.
--- NOTE | 2019-06-15 12:56 | NUR ---
Pt brought by ambulance, A&Ox2, pt presents to ER with ETOH, pt admits drinking today, respirations even and unlabored, poor hygiene, VSS, afebrile, pt responding to commands, will cont to monitor.
--- NOTE | 2019-06-15 15:56 | NUR ---
ER Dr. Bacon at bedside examining patient.
--- NOTE | 2019-06-15 17:05 | NUR ---
Patient asked for a sandwich and some drinks. Okay to feed per Dr. Bacon. Patient is going home via [facility].
--- NOTE | 2019-06-15 17:25 | NUR ---
ER Dr. Bacon at bedside re-examining patient.
[2019-06-15 19:15] VITALS: BP_SYST 117
--- NOTE | 2019-06-15 19:15 | NUR ---
Patient given written and verbal discharge instructions and verbalizes understanding. ER MD discussed with patient the results and treatment provided. Patient in stable condition. ID arm band removed. No Rx given. Patient educated on pain management and to follow up with PMD. Pain Scale 0/10. Opportunity for questions provided and answered. Medication side effect fact sheet provided.
== END 2019-06-15 19:15 | disposition home or self-care (01) ==
LOC: SED 12:03
DX: F10.129 Alcohol abuse with intoxication, unspecified (principal); I10 Essential (primary) hypertension; J44.9 Chronic obstructive pulmonary disease, unspecified; F41.9 Anxiety disorder, unspecified; I48.91 Unspecified atrial fibrillation; Z79.899 Other long term (current) drug therapy; Y90.9 Presence of alcohol in blood, level not specified
CPT/HCPCS: 99283

== ENCOUNTER 2019-06-22 07:08 | Emergency (ER) | payer OTHER ==
[~2019-06-22] VITALS: Ht 167.6 cm; Wt 78.5 kg
[2019-06-22 07:15] VITALS: BP_SYST 131
--- NOTE | 2019-06-22 07:22 | NUR ---
Patient to ER bed 7 to gown for evaluation. Side rails up. Report given to LYUDMILA Rich.
--- NOTE | 2019-06-22 07:30 | NUR ---
lpt arrives from home w/ c/o ETOH withdrawels. Pt states that he has been trying to check himself into a rehab. No other c/o at the moment.
--- NOTE | 2019-06-22 07:40 | NUR ---
ER at bedside examining patient.
[2019-06-22 07:50] VITALS: BP_SYST 131
[2019-06-22] MEDS ORDERED: NACL 0.9% 1,000 ML IV ONE (08:00)
--- NOTE | 2019-06-22 08:02 | NUR ---
Patient is refusing IV start at this time. He wishes to speak with Dr. Bacon.
--- NOTE | 2019-06-22 08:19 | NUR ---
pt refused to have an IV inserted and refused IV fluids. Pt also refused mental health/substance abuse packet and resourses.
--- NOTE | 2019-06-22 08:20 | NUR ---
Patient given written and verbal discharge instructions and verbalizes understanding. ER MD discussed with patient the results and treatment provided. Patient in stable condition. ID arm band removed. nO Rx given. Patient educated on pain management and to follow up with PMD. Pain Scale 0/10. Opportunity for questions provided and answered. Medication side effect fact sheet provided.
--- NOTE | 2019-06-22 08:22 | NUR ---
pt left in stable condition.
== END 2019-06-22 08:25 | disposition home or self-care (01) ==
LOC: SED 07:08
DX: F10.229 Alcohol dependence with intoxication, unspecified (principal); I10 Essential (primary) hypertension; J44.9 Chronic obstructive pulmonary disease, unspecified; I48.91 Unspecified atrial fibrillation; Y90.9 Presence of alcohol in blood, level not specified; Z79.899 Other long term (current) drug therapy
CPT/HCPCS: 99281

== ENCOUNTER 2019-07-02 00:21 | Emergency (ER) | payer OTHER ==
[~2019-07-02] VITALS: Ht 167.6 cm; Wt 77.1 kg
[2019-07-02 00:40] VITALS: BP_SYST 116
[2019-07-02] MEDS ORDERED: DILTIAZEM HCL 25 MG/5 ML VIAL IVP ONE (01:30)
[2019-07-02 01:39] LABS: BASOPHILS # (AUTO) 0.1 K/uL (0.0-0.2); BASOPHILS % (AUTO) 0.5 % (0.0-2.0); EOSINOPHILS # (AUTO) 0.1 K/uL (0.0-0.4); EOSINOPHILS % (AUTO) 0.6 % (0.0-4.0); HEMATOCRIT 35.6 % (36-54); HEMOGLOBIN 11.7 g/dL (14.0-18.0); LYMPHOCYTES # (AUTO) 1.7 K/uL (1.0-5.5); LYMPHOCYTES % (AUTO) 17.2 % (20.5-51.5); MEAN CORPUSCULAR HEMOGLOBIN 29 pg (27-31); MEAN CORPUSCULAR HGB CONC 33 % (32-36); MEAN CORPUSCULAR VOLUME 88 fL (79.0-98.0); MONOCYTES # (AUTO) 0.9 K/uL (0.0-1.0); MONOCYTES % (AUTO) 8.9 % (1.7-9.3); NEUTROPHILS % (AUTO) 72.8 % (40.0-70.0); PLATELET COUNT (AUTO) 100 K/uL (130-430); RED BLOOD CELL COUNT(AUTO) 4.07 MIL/uL (4.2-6.2); RED CELL DISTRIBUTION WIDTH 19.7 % (9.0-15.0); WHITE BLOOD COUNT (AUTO) 9.6 K/uL (4.8-10.8)
[2019-07-02 01:49] LABS: CALCIUM 8.2 mg/dL (8.4-11.0); CREATININE 1.12 mg/dL (0.55-1.30); POTASSIUM 3.4 mmol/L (3.5-5.1)
[2019-07-02 01:57] LABS: ALBUMIN 3.3 g/dL (3.4-4.8); TOTAL BILIRUBIN 1.9 mg/dL (0.0-1.0)
[2019-07-02 05:16] LABS: BILIRUBIN,URINE 1+ (NEGATIVE); BLOOD, URINE NEGATIVE (NEGATIVE); CLARITY/URINE CLEAR (CLEAR); COLOR,URINE YELLOW (YELLOW); GLUCOSE,URINE NEGATIVE (NEGATIVE); KETONES,URINE 3+ (NEGATIVE); LEUKOCYTE ESTERASE ,URINE NEGATIVE (NEGATIVE); NITRITE, URINE NEGATIVE (NEGATIVE); PROTEIN URINE NEGATIVE (NEGATIVE)
[2019-07-02 05:23] LABS: BACTERIA,URINE FEW /HPF (None Seen); RBC,URINE 0-3 /HPF (0-3); WBC,URINE 0-3 /HPF (0-3)
[2019-07-02 05:27] LABS: BARBITURATE, URINE NEGATIVE (NEG <=200); BENZODIAZEPINE, URINE POSITIVE (NEG <=150); CANNABINOID, URINE NEGATIVE (NEG <=50); COCAINE, URINE NEGATIVE (NEG <=150); METHAMPHETAMINES SCREEN,URINE NEGATIVE (NEG <=500); OPIATE, URINE NEGATIVE (NEG <=100); PHENCYCLIDINE SCREEN,URINE NEGATIVE (NEG <=25); UR TRICYCLIC ANTIDEPRESSANTS NEGATIVE (NEG <=300); URINE AMPHETAMINE NEGATIVE (NEG <=500); URINE METHADONE NEGATIVE (NEG <=200); URINE OXYCODONE SCREEN NEGATIVE (NEG <=100); URINE PROPOXYPHENE SCREEN NEGATIVE (NEG <=300)
[2019-07-02 09:53] VITALS: BP_SYST 130
== END 2019-07-02 09:53 | disposition home or self-care (01) ==
LOC: SED 00:21
DX: F10.129 Alcohol abuse with intoxication, unspecified (principal); I48.0 Paroxysmal atrial fibrillation; I48.91 Unspecified atrial fibrillation; J44.9 Chronic obstructive pulmonary disease, unspecified; I10 Essential (primary) hypertension; G47.00 Insomnia, unspecified; F41.9 Anxiety disorder, unspecified; F17.210 Nicotine dependence, cigarettes, uncomplicated; Y90.6 Blood alcohol level of 120-199 mg/100 ml
CPT/HCPCS: 36415; 80053; 80307; 81000; 83880; 84484; 85025; 86403; 87081; 93005; 99285; G0482; J3490; J7030

== ENCOUNTER 2019-08-04 00:45 | Inpatient (IN) | payer OTHER, SELFPAY ==
[~2019-08-04] VITALS: Ht 167.6 cm; Wt 77.1 kg
[2019-08-04] VITALS (11 sets, daily range): BP systolic 106–156
[~2019-08-04 00:45] MED LIST changes: -ALBMDI INH; -CAR30 PO; -FOLI-43 PO; -HYDR-4272 PO; -LIP40 PO; -METO25TA6 PO; -MULT-976 PO; -NICO-681 TD; -OMEP20CA11 PO; -THIA50TA10 PO
[2019-08-04] MEDS ORDERED: NACL 0.9% 1,000 ML IV ONE (00:53)
[2019-08-04 01:28] LABS: BASOPHILS % (AUTO) 0.4 % (0.0-2.0); EOSINOPHILS % (AUTO) 0.1 % (0.0-4.0); HEMATOCRIT 37.6 % (36-54); HEMOGLOBIN 12.3 g/dL (14.0-18.0); LYMPHOCYTES # (AUTO) 0.7 K/uL (1.0-5.5); LYMPHOCYTES % (AUTO) 6.1 % (20.5-51.5); MEAN CORPUSCULAR HEMOGLOBIN 29 pg (27-31); MEAN CORPUSCULAR HGB CONC 33 % (32-36); MEAN CORPUSCULAR VOLUME 88 fL (79.0-98.0); MONOCYTES # (AUTO) 1.1 K/uL (0.0-1.0); MONOCYTES % (AUTO) 9.1 % (1.7-9.3); NEUTROPHILS # (AUTO) 10.1 K/uL (1.8-7.7); NEUTROPHILS % (AUTO) 84.3 % (40.0-70.0); PLATELET COUNT (AUTO) 154 K/uL (130-430); RED BLOOD CELL COUNT(AUTO) 4.26 MIL/uL (4.2-6.2); RED CELL DISTRIBUTION WIDTH 20.8 % (9.0-15.0)
[2019-08-04 01:42] LABS: CALCIUM 7.6 mg/dL (8.4-11.0); CREATININE 1.17 mg/dL (0.55-1.30); POTASSIUM 3.7 mmol/L (3.5-5.1)
[2019-08-04 01:44] LABS: INR 1.1 (0.80-1.20); PROTHROMBIN TIME 10.6 SECS (9.5-12.5)
[2019-08-04 01:51] LABS: ALBUMIN 3.8 g/dL (3.4-4.8); TOTAL BILIRUBIN 1.2 mg/dL (0.0-1.0)
[2019-08-04 03:14] LABS: BILIRUBIN,URINE 1+ (NEGATIVE); BLOOD, URINE NEGATIVE (NEGATIVE); CLARITY/URINE CLEAR (CLEAR); COLOR,URINE YELLOW (YELLOW); GLUCOSE,URINE NEGATIVE (NEGATIVE); KETONES,URINE 1+ (NEGATIVE); LEUKOCYTE ESTERASE ,URINE NEGATIVE (NEGATIVE); NITRITE, URINE NEGATIVE (NEGATIVE); PROTEIN URINE TRACE (NEGATIVE)
[2019-08-04] MEDS ORDERED: IBUPROFEN 600 MG TABLET PO ONE (03:15)
[2019-08-04] MEDS ORDERED: DILTIAZEM HCL 125 MG in D5W 100 ML IV ONE (04:30)
[2019-08-04] MEDS ORDERED: DILTIAZEM HCL 25 MG/5 ML VIAL IVP ONE ×2 (04:30→07:15)
[2019-08-04] MEDS ORDERED: DILTIAZEM HCL 125 MG/25 ML VIAL IV ONE (04:51)
[2019-08-04] MEDS ORDERED: THIAMINE HCL 100 MG TABLET PO ONE (10:30)
[2019-08-04] MEDS ORDERED: METOPROLOL TARTRATE 25 MG TABLET PO ONE (10:30)
[2019-08-04] MEDS ORDERED: PANTOPRAZOLE SODIUM 40 MG TAB PO ONE (10:30)
[2019-08-04] MEDS ORDERED: GABAPENTIN 300 MG CAPSULE PO ONE (10:30)
[2019-08-04] MEDS ORDERED: chlordiazePOXIDE HCL 25 MG CAPSULE PO ONE (10:30)
[2019-08-04] MEDS: MVI 10 ML, FOLIC ACID 1 MG in NACL 0.9% 1,000 ML IV SCH (11:48)
[2019-08-04] MEDS: MAGNESIUM SULFATE 1 GM, THIAMINE HCL 100 MG in NS 100 ML IV SCH (11:49)
[2019-08-04] MEDS: ACETAMINOPHEN 325 MG TABLET PO PRN (11:50)
[2019-08-04] MEDS: chlordiazePOXIDE HCL 25 MG CAPSULE PO SCH ×2 (14:38→21:29)
[2019-08-04] MEDS: GABAPENTIN 300 MG CAPSULE PO SCH ×2 (14:38→21:29)
[2019-08-04] MEDS: LORazepam 2 MG/ML VIAL IVP PRN (14:39)
[2019-08-04] MEDS: METOPROLOL TARTRATE 25 MG TABLET PO SCH (21:40)
[2019-08-05] MEDS: LORazepam 2 MG/ML VIAL IVP PRN ×2 (05:39→19:06)
[2019-08-05] MEDS: PANTOPRAZOLE SODIUM 40 MG TAB PO SCH (08:41)
[2019-08-05] MEDS: GABAPENTIN 300 MG CAPSULE PO SCH ×3 (08:41→21:17)
[2019-08-05] MEDS: chlordiazePOXIDE HCL 25 MG CAPSULE PO SCH ×3 (08:41→21:18)
[2019-08-05 08:45] VITALS: BP_SYST 125
[2019-08-05] MEDS ORDERED: THIAMINE HCL 100 MG TABLET PO SCH (09:00)
[2019-08-05] MEDS ORDERED: FOLIC ACID 1 MG TABLET PO SCH (09:00)
[2019-08-05] MEDS: METOPROLOL TARTRATE 25 MG TABLET PO SCH ×2 (09:04→21:00)
[2019-08-05 12:31] VITALS: BP_SYST 116
[2019-08-05] MEDS: MAGNESIUM SULFATE 1 GM, THIAMINE HCL 100 MG in NS 100 ML IV SCH (12:34)
[2019-08-05] MEDS: MVI 10 ML, FOLIC ACID 1 MG in NACL 0.9% 1,000 ML IV SCH (12:34)
[2019-08-05] MEDS ORDERED: COMMUNICATION ORDER XX ONE (13:30)
[2019-08-05 15:09] LABS: ALBUMIN 3.3 g/dL (3.4-4.8); CALCIUM 8.2 mg/dL (8.4-11.0); CREATININE 1.08 mg/dL (0.55-1.30); POTASSIUM 3.4 mmol/L (3.5-5.1); TOTAL BILIRUBIN 1.4 mg/dL (0.0-1.0)
[2019-08-05 16:30] VITALS: BP_SYST 97
[2019-08-05] MEDS: NICOTINE 14 MG/24 HR PATCH.TD24 TD SCH (17:47)
[2019-08-05 20:00] VITALS: BP_SYST 100
[2019-08-05] MEDS ORDERED: HYDROcodone/ACETAMIN 5-325 MG TAB (NORCO/ VICODIN) PO ONE (20:45)
[2019-08-05 23:56] VITALS: BP_SYST 117
[2019-08-06] VITALS (8 sets, daily range): BP systolic 99–140
[2019-08-06] MEDS ORDERED: HYDROcodone/ACETAMIN 5-325 MG TAB (NORCO/ VICODIN) PO ONE (04:45)
[2019-08-06] MEDS: LORazepam 2 MG/ML VIAL IVP PRN ×3 (05:20→22:28)
[2019-08-06] MEDS: NICOTINE 14 MG/24 HR PATCH.TD24 TD SCH (08:36)
[2019-08-06] MEDS: chlordiazePOXIDE HCL 25 MG CAPSULE PO SCH ×3 (08:37→20:59)
[2019-08-06] MEDS: PANTOPRAZOLE SODIUM 40 MG TAB PO SCH (08:38)
[2019-08-06] MEDS: METOPROLOL TARTRATE 25 MG TABLET PO SCH ×2 (08:38→20:59)
[2019-08-06] MEDS: GABAPENTIN 300 MG CAPSULE PO SCH ×3 (08:38→20:59)
[2019-08-06] MEDS: MVI 10 ML, FOLIC ACID 1 MG in NACL 0.9% 1,000 ML IV SCH (11:57)
[2019-08-06] MEDS: MAGNESIUM SULFATE 1 GM, THIAMINE HCL 100 MG in NS 100 ML IV SCH (11:58)
[2019-08-06] MEDS ORDERED: POTASSIUM CHLORIDE 10 MEQ TAB.PRT.SR PO ONE (17:15)
[2019-08-06] MEDS: ACETAMINOPHEN 325 MG TABLET PO PRN (20:58)
[2019-08-07 07:55] VITALS: BP_SYST 138
[2019-08-07] MEDS: THIAMINE HCL 100 MG TABLET PO SCH (08:03)
[2019-08-07] MEDS: chlordiazePOXIDE HCL 25 MG CAPSULE PO SCH (08:03)
[2019-08-07] MEDS: FOLIC ACID 1 MG TABLET PO SCH (08:04)
[2019-08-07] MEDS: PANTOPRAZOLE SODIUM 40 MG TAB PO SCH (08:04)
[2019-08-07] MEDS: buPROPion HCL 100 MG TABLET.SA PO SCH (08:04)
[2019-08-07] MEDS: GABAPENTIN 300 MG CAPSULE PO SCH ×3 (08:05→21:00)
[2019-08-07] MEDS: NICOTINE 14 MG/24 HR PATCH.TD24 TD SCH (08:05)
[2019-08-07] MEDS: METOPROLOL TARTRATE 25 MG TABLET PO SCH ×2 (08:05→21:00)
[2019-08-07 11:45] VITALS: BP_SYST 115
[2019-08-07] MEDS: LORazepam 1 MG TABLET PO SCH ×2 (14:19→21:00)
[2019-08-07] MEDS ORDERED: chlordiazePOXIDE HCL 25 MG CAPSULE PO SCH (15:00)
[2019-08-07 15:31] VITALS: BP_SYST 123
[2019-08-07] MEDS: LORazepam 2 MG/ML VIAL IVP PRN (17:22)
[2019-08-07] MEDS: HYDROcodone/ACETAMIN 5-325 MG TAB (NORCO/ VICODIN) PO PRN (18:23)
[2019-08-07 20:00] VITALS: BP_SYST 126
[2019-08-08 00:13] VITALS: BP_SYST 122
[2019-08-08] MEDS: HYDROcodone/ACETAMIN 5-325 MG TAB (NORCO/ VICODIN) PO PRN ×2 (04:47→13:56)
[2019-08-08] MEDS: NICOTINE 14 MG/24 HR PATCH.TD24 TD SCH (08:20)
[2019-08-08] MEDS: LORazepam 1 MG TABLET PO SCH ×3 (08:21→21:17)
[2019-08-08] MEDS: buPROPion HCL 100 MG TABLET.SA PO SCH (08:21)
[2019-08-08] MEDS: FOLIC ACID 1 MG TABLET PO SCH (08:21)
[2019-08-08] MEDS: PANTOPRAZOLE SODIUM 40 MG TAB PO SCH (08:21)
[2019-08-08] MEDS: GABAPENTIN 300 MG CAPSULE PO SCH ×3 (08:21→21:17)
[2019-08-08] MEDS: THIAMINE HCL 100 MG TABLET PO SCH (08:21)
[2019-08-08] MEDS: METOPROLOL TARTRATE 25 MG TABLET PO SCH ×2 (08:22→21:00)
[2019-08-08 08:25] VITALS: BP_SYST 126
[2019-08-08 12:00] VITALS: BP_SYST 124
[2019-08-08 16:28] VITALS: BP_SYST 124
[2019-08-08 20:00] VITALS: BP_SYST 111
[2019-08-08 23:46] VITALS: BP_SYST 122
[2019-08-09] MEDS: LORazepam 1 MG TABLET PO SCH ×3 (07:34→15:01)
[2019-08-09 08:01] VITALS: BP_SYST 134
[2019-08-09] MEDS: THIAMINE HCL 100 MG TABLET PO SCH (08:26)
[2019-08-09] MEDS: METOPROLOL TARTRATE 25 MG TABLET PO SCH (08:26)
[2019-08-09] MEDS: NICOTINE 14 MG/24 HR PATCH.TD24 TD SCH (08:26)
[2019-08-09] MEDS: PANTOPRAZOLE SODIUM 40 MG TAB PO SCH (08:26)
[2019-08-09] MEDS: FOLIC ACID 1 MG TABLET PO SCH (08:26)
[2019-08-09] MEDS: HYDROcodone/ACETAMIN 5-325 MG TAB (NORCO/ VICODIN) PO PRN (08:27)
[2019-08-09] MEDS: GABAPENTIN 300 MG CAPSULE PO SCH ×2 (08:27→15:03)
[2019-08-09] MEDS: buPROPion HCL 100 MG TABLET.SA PO SCH (08:28)
[2019-08-09 09:04] LABS: CALCIUM 8.6 mg/dL (8.4-11.0); CREATININE 1.05 mg/dL (0.55-1.30); POTASSIUM 3.7 mmol/L (3.5-5.1)
[2019-08-09 12:17] VITALS: BP_SYST 135
[2019-08-09] MEDS ORDERED: MAGNESIUM SULFATE 1 GM in NS 100 ML IV ONE (14:15)
[2019-08-09] MEDS ORDERED: BUPR200T2 PO (14:40)
[2019-08-09] MEDS ORDERED: METO25TA3 PO (14:41)
[2019-08-09] MEDS ORDERED: FOLI-43 PO (14:42)
[2019-08-09] MEDS ORDERED: THIA100T73 PO (14:42)
[2019-08-09] MEDS ORDERED: MAGN200T9 PO (14:44)
[2019-08-09 14:58] VITALS: BP_SYST 135
[2019-08-09 16:20] VITALS: BP_SYST 130
== END 2019-08-09 16:15 | disposition short-term general hospital (02) | DRG 309 ==
LOC: SED 00:45 → SIC 08:00 → STU 19:31 → SMU 08-07 17:18
PROVIDERS: ADMIT Internal Medicine; ATTEND Internal Medicine
DX: I48.0 Paroxysmal atrial fibrillation (principal); J44.1 Chronic obstructive pulmonary disease with (acute) exacerbation; R65.10 Systemic inflammatory response syndrome (SIRS) of non-infectious origin without acute organ dysfunction; K70.9 Alcoholic liver disease, unspecified; G62.1 Alcoholic polyneuropathy; F32.9 Major depressive disorder, single episode, unspecified; G89.4 Chronic pain syndrome; I10 Essential (primary) hypertension; Y90.6 Blood alcohol level of 120-199 mg/100 ml; F41.9 Anxiety disorder, unspecified; K70.30 Alcoholic cirrhosis of liver without ascites; E87.6 Hypokalemia; Z20.828 Contact with and (suspected) exposure to other viral communicable diseases; Z60.2 Problems related to living alone; E86.0 Dehydration; G47.8 Other sleep disorders; F10.120 Alcohol abuse with intoxication, uncomplicated; Z72.0 Tobacco use; Z79.899 Other long term (current) drug therapy
CPT/HCPCS: 36415; 71045; 80048; 80053; 81003; 82962; 83735-TC; 83880; 84443-TC; 84484; 85025; 85610-TC; 87081; 93005; 96361; 96365; 96366; 96375; 97112-GP; 99285; G0482; J2060; J3411; J3475; J3490; J7030

== ENCOUNTER 2019-08-20 04:10 | Inpatient (IN) | payer OTHER, SELFPAY ==
[~2019-08-20] VITALS: Ht 167.6 cm; Wt 79.8 kg
[2019-08-20 04:10] VITALS: BP_SYST 103
[~2019-08-20 04:10] MED LIST changes: +BUPR200T2 PO; +FOLI-43 PO; -LIB25 PO; +MAGN200T9 PO; +METO25TA3 PO; +THIA100T73 PO
[2019-08-20] MEDS ORDERED: NACL 0.9% 1,000 ML IV ONE (04:45)
[2019-08-20] MEDS ORDERED: FOLIC ACID 1 MG, THIAMINE HCL 100 MG, MAGNESIUM SULFATE 1 GM, MVI 10 ML in NACL 0.9% 1,... IV ONE (05:00)
[2019-08-20 05:08] LABS: BASOPHILS # (AUTO) 0.1 K/uL (0.0-0.2); EOSINOPHILS # (AUTO) 0.1 K/uL (0.0-0.4); EOSINOPHILS % (AUTO) 1.1 % (0.0-4.0); HEMATOCRIT 38.1 % (36-54); HEMOGLOBIN 12.4 g/dL (14.0-18.0); LYMPHOCYTES # (AUTO) 2.1 K/uL (1.0-5.5); LYMPHOCYTES % (AUTO) 17.4 % (20.5-51.5); MEAN CORPUSCULAR HEMOGLOBIN 28 pg (27-31); MEAN CORPUSCULAR HGB CONC 33 % (32-36); MEAN CORPUSCULAR VOLUME 87 fL (79.0-98.0); MONOCYTES # (AUTO) 1.1 K/uL (0.0-1.0); MONOCYTES % (AUTO) 8.7 % (1.7-9.3); NEUTROPHILS # (AUTO) 8.8 K/uL (1.8-7.7); NEUTROPHILS % (AUTO) 71.8 % (40.0-70.0); PLATELET COUNT (AUTO) 341 K/uL (130-430); RED BLOOD CELL COUNT(AUTO) 4.38 MIL/uL (4.2-6.2); WHITE BLOOD COUNT (AUTO) 12.2 K/uL (4.8-10.8)
[2019-08-20] MEDS ORDERED: THIAMINE HCL 100 MG/ML VIAL ONE (05:22)
[2019-08-20] MEDS ORDERED: MVI 10 ML VIAL IV ONE (05:22)
[2019-08-20] MEDS ORDERED: FOLIC ACID 5 MG/ML VIAL IV ONE (05:22)
[2019-08-20] MEDS ORDERED: MAGNESIUM SULFATE/D5W 100 ML IV ONE (05:30)
[2019-08-20] MEDS ORDERED: MAGNESIUM SULFATE/D5W 0 ML IV ONE (05:36)
[2019-08-20] MEDS ORDERED: MAGNESIUM SULFATE 1 GM/2 ML VIAL ONE (05:43)
[2019-08-20 05:46] LABS: CALCIUM 7.6 mg/dL (8.4-11.0); CREATININE 1.28 mg/dL (0.55-1.30); POTASSIUM 3.9 mmol/L (3.5-5.1)
[2019-08-20 05:51] LABS: ALBUMIN 3.6 g/dL (3.4-4.8); TOTAL BILIRUBIN 1.2 mg/dL (0.0-1.0)
[2019-08-20] MEDS ORDERED: AZITHROMYCIN 500 MG in NS 250 ML IV ONE (06:30)
[2019-08-20] MEDS ORDERED: cefTRIAXone 1 GM IVPB PREMIX 50 ML IV ONE (06:30)
[2019-08-20] MEDS ORDERED: FOLIC ACID 1 MG, THIAMINE HCL 100 MG, MAGNESIUM SULFATE 1 GM, MVI 10 ML in NACL 0.9% 1,... IV SCH (06:45)
[2019-08-20] MEDS ORDERED: AZITHROMYCIN 500 MG/VIAL (ZITHROMAX) IV ONE (07:08)
[2019-08-20 08:30] VITALS: BP_SYST 137
[2019-08-20 08:41] LABS: BILIRUBIN,URINE 1+ (NEGATIVE); BLOOD, URINE NEGATIVE (NEGATIVE); CLARITY/URINE CLEAR (CLEAR); COLOR,URINE YELLOW (YELLOW); GLUCOSE,URINE NEGATIVE (NEGATIVE); KETONES,URINE 1+ (NEGATIVE); LEUKOCYTE ESTERASE ,URINE NEGATIVE (NEGATIVE); NITRITE, URINE NEGATIVE (NEGATIVE); PH,URINE 5.5 (5.0-8.0); PROTEIN URINE TRACE (NEGATIVE); UROBILINOGEN,URINE 0.2 (0.2-1.0)
[2019-08-20 08:45] VITALS: BP_SYST 137
[2019-08-20 09:00] LABS: BACTERIA,URINE None Seen /HPF (None Seen); HYALINE CASTS, URINE 0-10 /LPF (None Seen); MUCUS,URINE 3+ /LPF (None Seen); RBC,URINE 0-3 /HPF (0-3); WBC,URINE 0-3 /HPF (0-3)
[2019-08-20] MEDS ORDERED: MORPHINE 2 MG/ML INJ. SYRINGE IVP PRN (09:45)
[2019-08-20 12:42] VITALS: BP_SYST 133
[2019-08-20] MEDS ORDERED: buPROPion HCL 100 MG TABLET.SA PO ONE (12:45)
[2019-08-20] MEDS ORDERED: MAGNESIUM OXIDE 400 MG TABLET PO ONE (12:45)
[2019-08-20] MEDS ORDERED: FOLIC ACID 1 MG TABLET PO ONE (12:45)
[2019-08-20] MEDS ORDERED: METOPROLOL SUCCINATE 25 MG TAB.SR.24H (TOPROL XL) PO ONE (12:45)
[2019-08-20] MEDS ORDERED: THIAMINE HCL 100 MG TABLET PO ONE (12:45)
[2019-08-20] MEDS ORDERED: MORPHINE SULFATE 10 MG/ML VIAL IVP PRN (12:49)
[2019-08-20] MEDS ORDERED: GABAPENTIN 300 MG CAPSULE PO ONE (13:00)
[2019-08-20] MEDS: LORazepam 1 MG TABLET PO SCH (16:09)
[2019-08-20] MEDS: MORPHINE 4 MG/ML INJ. SYRINGE IVP PRN ×2 (16:09→21:30)
[2019-08-20 16:41] VITALS: BP_SYST 144
[2019-08-20 20:00] VITALS: BP_SYST 128
[2019-08-20] MEDS: TEMAZEPAM 15 MG CAPSULE PO SCH (21:00)
[2019-08-20] MEDS: GABAPENTIN 300 MG CAPSULE PO SCH (21:29)
[2019-08-20] MEDS: MAGNESIUM OXIDE 400 MG TABLET PO SCH (21:29)
[2019-08-20] MEDS: METOPROLOL SUCCINATE 25 MG TAB.SR.24H (TOPROL XL) PO SCH (21:29)
[2019-08-21] VITALS: BP_SYST 115
[2019-08-21] MEDS: LORazepam 1 MG TABLET PO SCH (00:40)
[2019-08-21 04:10] VITALS: BP_SYST 108
[2019-08-21 06:31] LABS: BASOPHILS % (AUTO) 0.6 % (0.0-2.0); EOSINOPHILS # (AUTO) 0.2 K/uL (0.0-0.4); EOSINOPHILS % (AUTO) 2.7 % (0.0-4.0); HEMOGLOBIN 10.9 g/dL (14.0-18.0); LYMPHOCYTES # (AUTO) 1.2 K/uL (1.0-5.5); LYMPHOCYTES % (AUTO) 16.7 % (20.5-51.5); MEAN CORPUSCULAR HEMOGLOBIN 28 pg (27-31); MEAN CORPUSCULAR HGB CONC 32 % (32-36); MEAN CORPUSCULAR VOLUME 88 fL (79.0-98.0); MONOCYTES # (AUTO) 0.5 K/uL (0.0-1.0); MONOCYTES % (AUTO) 6.6 % (1.7-9.3); NEUTROPHILS # (AUTO) 5.2 K/uL (1.8-7.7); NEUTROPHILS % (AUTO) 73.4 % (40.0-70.0); PLATELET COUNT (AUTO) 216 K/uL (130-430); RED BLOOD CELL COUNT(AUTO) 3.86 MIL/uL (4.2-6.2); RED CELL DISTRIBUTION WIDTH 20.4 % (9.0-15.0); WHITE BLOOD COUNT (AUTO) 7.1 K/uL (4.8-10.8)
[2019-08-21 06:55] LABS: CALCIUM 7.4 mg/dL (8.4-11.0); CREATININE 0.85 mg/dL (0.55-1.30); FREE T4 (FREE THYROXINE) 1.4 ng/dl (0.8-1.5); POTASSIUM 3.7 mmol/L (3.5-5.1); TOTAL BILIRUBIN 1.1 mg/dL (0.0-1.0)
[2019-08-21 08:10] VITALS: BP_SYST 108
[2019-08-21] MEDS: FOLIC ACID 1 MG, MVI 10 ML in NACL 0.9% 1,000 ML IV SCH (09:01)
[2019-08-21] MEDS: THIAMINE HCL 100 MG TABLET PO SCH (09:02)
[2019-08-21] MEDS: GABAPENTIN 300 MG CAPSULE PO SCH ×3 (09:02→21:31)
[2019-08-21] MEDS: THIAMINE HCL 100 MG, MAGNESIUM SULFATE 1 GM in NS 100 ML IV SCH (09:02)
[2019-08-21] MEDS: MAGNESIUM OXIDE 400 MG TABLET PO SCH ×2 (09:02→21:31)
[2019-08-21] MEDS: buPROPion HCL 100 MG TABLET.SA PO SCH (09:03)
[2019-08-21] MEDS: METOPROLOL SUCCINATE 25 MG TAB.SR.24H (TOPROL XL) PO SCH ×2 (09:03→21:30)
[2019-08-21] MEDS: NICOTINE 21 MG/24 HR PATCH.TD24 TD SCH (09:04)
[2019-08-21] MEDS: MORPHINE 4 MG/ML INJ. SYRINGE IVP PRN ×3 (09:08→22:19)
[2019-08-21] MEDS: FOLIC ACID 1 MG TABLET PO SCH (09:13)
[2019-08-21 12:10] VITALS: BP_SYST 108
[2019-08-21] MEDS ORDERED: MULTIVITS,CA,MINERALS/IRON/FA 1 TABLET PO ONE (12:45)
[2019-08-21] MEDS ORDERED: CHOLECALCIFEROL (VITAMIN D3) 2,000 UNIT TABLET PO ONE (12:45)
[2019-08-21] MEDS ORDERED: ONDANSETRON HCL 4 MG/2 ML VIAL ONE (13:32)
[2019-08-21] MEDS ORDERED: ONDANSETRON HCL 4 MG/2 ML VIAL IVP PRN (13:45)
[2019-08-21] MEDS ORDERED: DOCUSATE SODIUM 250 MG CAPSULE PO ONE (14:15)
[2019-08-21 20:15] VITALS: BP_SYST 107
[2019-08-21] MEDS: TEMAZEPAM 15 MG CAPSULE PO SCH (21:00)
[2019-08-21] MEDS: METOCLOPRAMIDE HCL 10 MG TABLET PO SCH (21:30)
[2019-08-21] MEDS: MULTIVITS,CA,MINERALS/IRON/FA 1 TABLET PO SCH (21:31)
[2019-08-21] MEDS: DOCUSATE SODIUM 250 MG CAPSULE PO SCH (21:36)
[2019-08-22] MEDS: LORazepam 1 MG TABLET PO SCH (02:17)
[2019-08-22 02:30] VITALS: BP_SYST 119
[2019-08-22] MEDS: MORPHINE 4 MG/ML INJ. SYRINGE IVP PRN ×3 (05:02→21:49)
[2019-08-22] MEDS: METOCLOPRAMIDE HCL 10 MG TABLET PO SCH ×5 (06:45→20:04)
[2019-08-22 08:00] VITALS: BP_SYST 114
[2019-08-22] MEDS: FOLIC ACID 1 MG, MVI 10 ML in NACL 0.9% 1,000 ML IV SCH (09:21)
[2019-08-22] MEDS: FOLIC ACID 1 MG TABLET PO SCH (09:22)
[2019-08-22] MEDS: MAGNESIUM OXIDE 400 MG TABLET PO SCH ×2 (09:22→20:04)
[2019-08-22] MEDS: THIAMINE HCL 100 MG, MAGNESIUM SULFATE 1 GM in NS 100 ML IV SCH (09:22)
[2019-08-22] MEDS: THIAMINE HCL 100 MG TABLET PO SCH (09:22)
[2019-08-22] MEDS: METOPROLOL SUCCINATE 25 MG TAB.SR.24H (TOPROL XL) PO SCH ×2 (09:22→20:05)
[2019-08-22] MEDS: DOCUSATE SODIUM 250 MG CAPSULE PO SCH ×2 (09:22→20:04)
[2019-08-22] MEDS: GABAPENTIN 300 MG CAPSULE PO SCH ×3 (09:22→20:04)
[2019-08-22] MEDS: MULTIVITS,CA,MINERALS/IRON/FA 1 TABLET PO SCH ×2 (09:22→20:05)
[2019-08-22] MEDS: CHOLECALCIFEROL (VITAMIN D3) 2,000 UNIT TABLET PO SCH (09:22)
[2019-08-22] MEDS: NICOTINE 21 MG/24 HR PATCH.TD24 TD SCH (09:22)
[2019-08-22] MEDS: buPROPion HCL 100 MG TABLET.SA PO SCH (09:22)
[2019-08-22] MEDS: LORazepam 2 MG/ML VIAL IVP PRN ×2 (12:00→19:54)
[2019-08-22 12:43] VITALS: BP_SYST 100
[2019-08-22 16:37] VITALS: BP_SYST 126
[2019-08-22 19:00] VITALS: BP_SYST 132
[2019-08-22 20:00] VITALS: BP_SYST 132
[2019-08-22] MEDS: TEMAZEPAM 15 MG CAPSULE PO SCH (20:06)
[2019-08-23 00:46] VITALS: BP_SYST 142
[2019-08-23] MEDS: LORazepam 2 MG/ML VIAL IVP PRN ×2 (02:03→17:26)
[2019-08-23] MEDS: METOCLOPRAMIDE HCL 10 MG TABLET PO SCH ×4 (06:06→20:41)
[2019-08-23 07:01] LABS: BASOPHILS % (AUTO) 0.5 % (0.0-2.0); EOSINOPHILS # (AUTO) 0.3 K/uL (0.0-0.4); HEMOGLOBIN 11.2 g/dL (14.0-18.0); LYMPHOCYTES # (AUTO) 1.5 K/uL (1.0-5.5); LYMPHOCYTES % (AUTO) 16.2 % (20.5-51.5); MEAN CORPUSCULAR HEMOGLOBIN 28 pg (27-31); MEAN CORPUSCULAR HGB CONC 32 % (32-36); MEAN CORPUSCULAR VOLUME 88 fL (79.0-98.0); MONOCYTES # (AUTO) 0.6 K/uL (0.0-1.0); MONOCYTES % (AUTO) 6.3 % (1.7-9.3); PLATELET COUNT (AUTO) 177 K/uL (130-430); RED BLOOD CELL COUNT(AUTO) 3.97 MIL/uL (4.2-6.2); RED CELL DISTRIBUTION WIDTH 20.2 % (9.0-15.0); WHITE BLOOD COUNT (AUTO) 9.5 K/uL (4.8-10.8)
[2019-08-23] MEDS: MORPHINE 4 MG/ML INJ. SYRINGE IVP PRN ×2 (07:10→11:21)
[2019-08-23 07:13] LABS: ALBUMIN 3.3 g/dL (3.4-4.8); CALCIUM 8.5 mg/dL (8.4-11.0); CREATININE 0.8 mg/dL (0.55-1.30); POTASSIUM 3.9 mmol/L (3.5-5.1); TOTAL BILIRUBIN 0.7 mg/dL (0.0-1.0)
[2019-08-23 08:00] VITALS: BP_SYST 135
[2019-08-23] MEDS: THIAMINE HCL 100 MG TABLET PO SCH (09:20)
[2019-08-23] MEDS: MAGNESIUM OXIDE 400 MG TABLET PO SCH ×2 (09:20→20:41)
[2019-08-23] MEDS: FOLIC ACID 1 MG TABLET PO SCH (09:20)
[2019-08-23] MEDS: GABAPENTIN 300 MG CAPSULE PO SCH ×3 (09:20→20:41)
[2019-08-23] MEDS: DOCUSATE SODIUM 250 MG CAPSULE PO SCH ×2 (09:20→20:41)
[2019-08-23] MEDS: METOPROLOL SUCCINATE 25 MG TAB.SR.24H (TOPROL XL) PO SCH (09:21)
[2019-08-23] MEDS: CHOLECALCIFEROL (VITAMIN D3) 2,000 UNIT TABLET PO SCH (09:21)
[2019-08-23] MEDS: buPROPion HCL 100 MG TABLET.SA PO SCH (09:21)
[2019-08-23] MEDS: MULTIVITS,CA,MINERALS/IRON/FA 1 TABLET PO SCH ×2 (09:21→20:42)
[2019-08-23] MEDS: NICOTINE 21 MG/24 HR PATCH.TD24 TD SCH (09:21)
[2019-08-23] MEDS: FOLIC ACID 1 MG, MVI 10 ML in NACL 0.9% 1,000 ML IV SCH (09:36)
[2019-08-23] MEDS: THIAMINE HCL 100 MG, MAGNESIUM SULFATE 1 GM in NS 100 ML IV SCH (10:23)
[2019-08-23 12:00] VITALS: BP_SYST 139
[2019-08-23 16:25] VITALS: BP_SYST 140
[2019-08-23 20:00] VITALS: BP_SYST 135
[2019-08-23] MEDS: TEMAZEPAM 15 MG CAPSULE PO SCH (20:42)
[2019-08-24] VITALS: BP_SYST 141
[2019-08-24] MEDS: LORazepam 2 MG/ML VIAL IVP PRN (00:07)
[2019-08-24] MEDS: METOCLOPRAMIDE HCL 10 MG TABLET PO SCH (06:43)
[2019-08-24 07:47] VITALS: BP_SYST 137
[2019-08-24] MEDS: THIAMINE HCL 100 MG, MAGNESIUM SULFATE 1 GM in NS 100 ML IV SCH (08:43)
[2019-08-24] MEDS: FOLIC ACID 1 MG, MVI 10 ML in NACL 0.9% 1,000 ML IV SCH (08:44)
[2019-08-24] MEDS: GABAPENTIN 300 MG CAPSULE PO SCH (08:49)
[2019-08-24] MEDS: DOCUSATE SODIUM 250 MG CAPSULE PO SCH (08:49)
[2019-08-24] MEDS: MAGNESIUM OXIDE 400 MG TABLET PO SCH (08:49)
[2019-08-24] MEDS: MULTIVITS,CA,MINERALS/IRON/FA 1 TABLET PO SCH (08:50)
[2019-08-24] MEDS: THIAMINE HCL 100 MG TABLET PO SCH (08:50)
[2019-08-24] MEDS: NICOTINE 21 MG/24 HR PATCH.TD24 TD SCH (08:50)
[2019-08-24] MEDS: CHOLECALCIFEROL (VITAMIN D3) 2,000 UNIT TABLET PO SCH (08:50)
[2019-08-24] MEDS: FOLIC ACID 1 MG TABLET PO SCH (08:50)
[2019-08-24] MEDS: buPROPion HCL 100 MG TABLET.SA PO SCH (09:00)
[2019-08-24 09:19] VITALS: BP_SYST 130
== END 2019-08-24 09:45 | disposition home health service (06) | DRG 190 ==
LOC: SED 04:10 → EEVIPCON 04:10 → STU 06:33 → SMU 08-23 11:59 → STU 08-23 13:12
PROVIDERS: ADMIT Internal Medicine; ATTEND Internal Medicine
DX: J44.1 Chronic obstructive pulmonary disease with (acute) exacerbation (principal); R65.11 Systemic inflammatory response syndrome (SIRS) of non-infectious origin with acute organ dysfunction; F10.239 Alcohol dependence with withdrawal, unspecified; E44.1 Mild protein-calorie malnutrition; E87.2 Acidosis; J06.9 Acute upper respiratory infection, unspecified; F32.9 Major depressive disorder, single episode, unspecified; I10 Essential (primary) hypertension; K70.30 Alcoholic cirrhosis of liver without ascites; F41.9 Anxiety disorder, unspecified; G62.1 Alcoholic polyneuropathy; G47.30 Sleep apnea, unspecified; G89.4 Chronic pain syndrome; D64.9 Anemia, unspecified; R00.1 Bradycardia, unspecified; I48.0 Paroxysmal atrial fibrillation; K70.9 Alcoholic liver disease, unspecified; Z91.19 Patient's noncompliance with other medical treatment and regimen; Z68.28 Body mass index [BMI] 28.0-28.9, adult; Z79.899 Other long term (current) drug therapy; Z71.6 Tobacco abuse counseling; Z72.0 Tobacco use
CPT/HCPCS: 36415; 71045; 80053; 80061; 81000-TC; 83605; 83735-TC; 83880; 84439; 84484; 85025; 86710; 87040-TC; 87081; 93005; 96361; 96365; 96366; 96367; 99285; A6209; G0378; J0456; J0696; J2060; J2270; J2405; J3411; J3475; J3490; J7030; J8597; U0002

== ENCOUNTER 2019-08-24 12:01 | Inpatient (IN) | payer OTHER ==
[~2019-08-24] VITALS: Ht 167.6 cm; Wt 79.8 kg
[2019-08-24 12:17] VITALS: BP_SYST 130
[2019-08-24] MEDS ORDERED: MORPHINE 4 MG/ML INJ. SYRINGE IVP ONE (13:00)
[2019-08-24 13:43] LABS: BASOPHILS % (AUTO) 0.3 % (0.0-2.0); EOSINOPHILS # (AUTO) 0.2 K/uL (0.0-0.4); EOSINOPHILS % (AUTO) 1.1 % (0.0-4.0); LYMPHOCYTES # (AUTO) 0.8 K/uL (1.0-5.5); LYMPHOCYTES % (AUTO) 5.4 % (20.5-51.5); MEAN CORPUSCULAR HEMOGLOBIN 29 pg (27-31); MEAN CORPUSCULAR HGB CONC 33 % (32-36); MEAN CORPUSCULAR VOLUME 88 fL (79.0-98.0); MONOCYTES # (AUTO) 1.1 K/uL (0.0-1.0); MONOCYTES % (AUTO) 7.5 % (1.7-9.3); NEUTROPHILS # (AUTO) 13.2 K/uL (1.8-7.7); NEUTROPHILS % (AUTO) 85.7 % (40.0-70.0); PLATELET COUNT (AUTO) 211 K/uL (130-430); RED BLOOD CELL COUNT(AUTO) 4.57 MIL/uL (4.2-6.2); RED CELL DISTRIBUTION WIDTH 20.8 % (9.0-15.0)
[2019-08-24 13:47] LABS: WHITE BLOOD COUNT (AUTO) 15.4 K/uL (4.8-10.8)
[2019-08-24 14:01] LABS: INR 1.1 (0.80-1.20); PROTHROMBIN TIME 10.7 SECS (9.5-12.5)
[2019-08-24 14:21] LABS: ALANINE AMINOTRANSFERASE 68 U/L (12-78); ALBUMIN 3.8 g/dL (3.4-4.8); ANION GAP 11 (5-15); ASPARTATE AMINOTRANSFERASE 69 U/L (10-37); CHLORIDE 96 mmol/L (98-107); CREATININE 1.27 mg/dL (0.55-1.30); GLUCOSE 114 mg/dL (70-99); POTASSIUM 4.3 mmol/L (3.5-5.1); SODIUM SERUM 134 mmol/L (136-145); TOTAL BILIRUBIN 0.9 mg/dL (0.0-1.0); UREA NITROGEN, BLOOD 17 mg/dL (8-21)
[2019-08-24 14:24] LABS: GFR AFRICAN AMERICAN 74 mL/min (>90)
[2019-08-24 14:25] LABS: ALCOHOL, BLOOD < 3 mg/dL (<10)
[2019-08-24 14:56] LABS: BILIRUBIN,URINE NEGATIVE (NEGATIVE); BLOOD, URINE NEGATIVE (NEGATIVE); COLOR,URINE YELLOW (YELLOW); GLUCOSE,URINE NEGATIVE (NEGATIVE); KETONES,URINE NEGATIVE (NEGATIVE); LEUKOCYTE ESTERASE ,URINE NEGATIVE (NEGATIVE); NITRITE, URINE NEGATIVE (NEGATIVE); PROTEIN URINE NEGATIVE (NEGATIVE)
[2019-08-24 15:02] VITALS: BP_SYST 116
[2019-08-24 15:05] LABS: CLARITY/URINE SLIGHTLY HAZY (CLEAR)
[2019-08-24] MEDS ORDERED: MORPHINE SULFATE 10 MG/ML VIAL IVP ONE (15:15)
[2019-08-24] MEDS ORDERED: ONDANSETRON HCL 4 MG/2 ML VIAL IVP PRN (16:30)
[2019-08-24 17:00] VITALS: BP_SYST 116
[2019-08-24] MEDS ORDERED: NS IRRIG SOLN 1000 ML IR ONE (17:45)
[2019-08-24] MEDS ORDERED: fentaNYL CITRATE/PF 100 MCG/2 ML AMP IVP ONE (17:45)
[2019-08-24] MEDS ORDERED: LR 1,000 ML IV.SOLN IV ONE (17:45)
[2019-08-24] MEDS ORDERED: PROPOFOL 200MG/ 20ML VIAL (DIPRIVAN) IV ONE (17:45)
[2019-08-24] MEDS ORDERED: CEFAZOLIN 2 GM IVPB PREMIX 50 ML IV ONE (17:45)
[2019-08-24] MEDS ORDERED: ISOFLURANE 15 MIN GAS INH ONE (17:45)
[2019-08-24] MEDS ORDERED: BUPIVACAINE /EPINEPHRINE/PF 0.5% 30 ML VIAL INJ ONE (17:45)
[2019-08-24] MEDS ORDERED: ONDANSETRON HCL 4 MG/2 ML VIAL IVP ONE (17:45)
[2019-08-24] MEDS: MORPHINE SULFATE 10 MG/ML VIAL IVP PRN ×2 (18:50→23:10)
[2019-08-24 20:00] VITALS: BP_SYST 150
[2019-08-24] MEDS: MAGNESIUM OXIDE 400 MG TABLET PO SCH (20:56)
[2019-08-24] MEDS: GABAPENTIN 300 MG CAPSULE PO SCH (20:56)
[2019-08-24] MEDS: METOPROLOL TARTRATE 25 MG TABLET PO SCH (20:56)
[2019-08-24] MEDS: IPRATROPIUM/ALBUTEROL SULFATE 3 ML AMPUL.NEB (DUONEB) INH SCH (23:19)
[2019-08-25] VITALS (9 sets, daily range): BP systolic 107–165
[2019-08-25] MEDS: ACETAMINOPHEN 325 MG TABLET PO PRN (01:42)
[2019-08-25] MEDS: MORPHINE SULFATE 10 MG/ML VIAL IVP PRN (03:55)
[2019-08-25] MEDS: HYDROmorphone 1 MG INJ. 1 MG/ML AMPUL IVP PRN ×6 (04:41→23:53)
[2019-08-25] MEDS ORDERED: LORazepam 1 MG TABLET PO ONE (04:45)
[2019-08-25] MEDS: IPRATROPIUM/ALBUTEROL SULFATE 3 ML AMPUL.NEB (DUONEB) INH SCH ×3 (07:11→23:29)
[2019-08-25] MEDS: METOPROLOL TARTRATE 25 MG TABLET PO SCH ×2 (08:56→21:27)
[2019-08-25] MEDS: FOLIC ACID 1 MG TABLET PO SCH (08:56)
[2019-08-25] MEDS: FAMOTIDINE 20 MG TABLET PO SCH (08:57)
[2019-08-25] MEDS: buPROPion HCL 150 MG TABLET.SA PO SCH (08:57)
[2019-08-25] MEDS: GABAPENTIN 300 MG CAPSULE PO SCH ×3 (08:57→21:25)
[2019-08-25] MEDS: THIAMINE HCL 100 MG TABLET PO SCH (08:57)
[2019-08-25] MEDS: MAGNESIUM OXIDE 400 MG TABLET PO SCH ×2 (08:57→21:25)
[2019-08-25] MEDS ORDERED: POLYMYXIN 500,000/BACIT.10,000 UNITS in NS IRR 1 L IR ONE (18:08)
[2019-08-25] MEDS ORDERED: HYDROmorphone 1 MG INJ. 1 MG/ML AMPUL IVP PRN (19:30)
[2019-08-25] MEDS ORDERED: ONDANSETRON HCL 4 MG/2 ML VIAL IVP PRN (19:30)
[2019-08-25] MEDS ORDERED: HYDROmorphone 1 MG INJ. 1 MG/ML AMPUL ONE (20:18)
[2019-08-26] MEDS: HYDROmorphone 1 MG INJ. 1 MG/ML AMPUL IVP PRN ×4 (04:05→17:47)
[2019-08-26] MEDS: IPRATROPIUM/ALBUTEROL SULFATE 3 ML AMPUL.NEB (DUONEB) INH SCH ×3 (06:00→22:00)
[2019-08-26 06:52] LABS: HEMATOCRIT 30.6 % (36-54); HEMOGLOBIN 9.9 g/dL (14.0-18.0); MEAN CORPUSCULAR HEMOGLOBIN 28 pg (27-31); MEAN CORPUSCULAR HGB CONC 32 % (32-36); MEAN CORPUSCULAR VOLUME 88 fL (79.0-98.0); PLATELET COUNT (AUTO) 155 K/uL (130-430); RED BLOOD CELL COUNT(AUTO) 3.47 MIL/uL (4.2-6.2); RED CELL DISTRIBUTION WIDTH 20.6 % (9.0-15.0); WHITE BLOOD COUNT (AUTO) 17.7 K/uL (4.8-10.8)
[2019-08-26 06:57] LABS: ALBUMIN 3.2 g/dL (3.4-4.8); CALCIUM 8.6 mg/dL (8.4-11.0); CREATININE 1.19 mg/dL (0.55-1.30); POTASSIUM 4.7 mmol/L (3.5-5.1); TOTAL BILIRUBIN 1.2 mg/dL (0.0-1.0)
[2019-08-26] MEDS: buPROPion HCL 150 MG TABLET.SA PO SCH (08:23)
[2019-08-26] MEDS: FAMOTIDINE 20 MG TABLET PO SCH (08:23)
[2019-08-26] MEDS: FOLIC ACID 1 MG TABLET PO SCH (08:23)
[2019-08-26] MEDS: THIAMINE HCL 100 MG TABLET PO SCH (08:23)
[2019-08-26] MEDS: MAGNESIUM OXIDE 400 MG TABLET PO SCH ×2 (08:23→20:06)
[2019-08-26] MEDS: METOPROLOL TARTRATE 25 MG TABLET PO SCH ×2 (08:24→20:11)
[2019-08-26] MEDS: GABAPENTIN 300 MG CAPSULE PO SCH ×3 (08:24→20:06)
[2019-08-26 09:31] LABS: BAND % (MANUAL) 1 % (0-6); BASOPHILS % (MANUAL) 0 % (0-2); EOSINOPHILS % (MANUAL) 2 % (0-7); LYMPHOCYTES % (MANUAL) 6 % (20-46); MONOCYTES % (MANUAL) 10 % (0-11)
[2019-08-26 11:58] VITALS: BP_SYST 87
[2019-08-26 13:15] VITALS: BP_SYST 109
[2019-08-26 16:07] VITALS: BP_SYST 81
[2019-08-26 20:13] VITALS: BP_SYST 91
[2019-08-27 00:45] VITALS: BP_SYST 104
[2019-08-27] MEDS: HYDROmorphone 1 MG INJ. 1 MG/ML AMPUL IVP PRN ×4 (01:28→17:28)
[2019-08-27] MEDS: ACETAMINOPHEN 325 MG TABLET PO PRN ×2 (04:43→11:19)
[2019-08-27 07:14] LABS: BASOPHILS % (AUTO) 0.3 % (0.0-2.0); EOSINOPHILS # (AUTO) 0.2 K/uL (0.0-0.4); EOSINOPHILS % (AUTO) 1.2 % (0.0-4.0); HEMATOCRIT 25.1 % (36-54); HEMOGLOBIN 8.2 g/dL (14.0-18.0); LYMPHOCYTES # (AUTO) 1.7 K/uL (1.0-5.5); LYMPHOCYTES % (AUTO) 11.5 % (20.5-51.5); MEAN CORPUSCULAR HEMOGLOBIN 29 pg (27-31); MEAN CORPUSCULAR HGB CONC 33 % (32-36); MEAN CORPUSCULAR VOLUME 87 fL (79.0-98.0); MONOCYTES # (AUTO) 4.5 K/uL (0.0-1.0); NEUTROPHILS # (AUTO) 8.6 K/uL (1.8-7.7); PLATELET COUNT (AUTO) 110 K/uL (130-430); RED BLOOD CELL COUNT(AUTO) 2.88 MIL/uL (4.2-6.2); RED CELL DISTRIBUTION WIDTH 20.5 % (9.0-15.0)
[2019-08-27 07:24] LABS: CALCIUM 8.4 mg/dL (8.4-11.0); CREATININE 1.42 mg/dL (0.55-1.30); POTASSIUM 4.7 mmol/L (3.5-5.1)
[2019-08-27] MEDS: IPRATROPIUM/ALBUTEROL SULFATE 3 ML AMPUL.NEB (DUONEB) INH SCH ×3 (07:30→22:00)
[2019-08-27 07:41] VITALS: BP_SYST 104
[2019-08-27] MEDS: MAGNESIUM OXIDE 400 MG TABLET PO SCH ×2 (08:10→20:27)
[2019-08-27] MEDS: buPROPion HCL 150 MG TABLET.SA PO SCH (08:10)
[2019-08-27] MEDS: GABAPENTIN 300 MG CAPSULE PO SCH ×3 (08:11→20:27)
[2019-08-27] MEDS: THIAMINE HCL 100 MG TABLET PO SCH (08:11)
[2019-08-27] MEDS: FOLIC ACID 1 MG TABLET PO SCH (08:11)
[2019-08-27] MEDS: METOPROLOL TARTRATE 25 MG TABLET PO SCH ×2 (08:11→20:28)
[2019-08-27] MEDS: FAMOTIDINE 20 MG TABLET PO SCH (08:11)
[2019-08-27] MEDS: NACL 0.9% 1,000 ML IV SCH ×2 (09:15→21:52)
[2019-08-27] MEDS ORDERED: NS 500 ML IV ONE (09:15)
[2019-08-27 12:14] VITALS: BP_SYST 118
[2019-08-27] MEDS ORDERED: LORazepam 2 MG/ML VIAL IVP ONE (12:45)
[2019-08-27] MEDS ORDERED: NICOTINE 14 MG/24 HR PATCH.TD24 TD ONE (15:30)
[2019-08-27] MEDS ORDERED: COMMUNICATION ORDER XX ONE (15:30)
[2019-08-27 16:04] VITALS: BP_SYST 112
[2019-08-27 20:00] VITALS: BP_SYST 116
[2019-08-27] MEDS: LORazepam 1 MG TABLET PO PRN (23:02)
[2019-08-28 00:33] VITALS: BP_SYST 130
[2019-08-28] MEDS: HYDROmorphone 1 MG INJ. 1 MG/ML AMPUL IVP PRN ×5 (00:39→23:43)
[2019-08-28] MEDS: ACETAMINOPHEN 325 MG TABLET PO PRN (04:20)
[2019-08-28] MEDS: IPRATROPIUM/ALBUTEROL SULFATE 3 ML AMPUL.NEB (DUONEB) INH SCH ×3 (06:00→22:00)
[2019-08-28 06:30] LABS: INR 1.1 (0.80-1.20); PROTHROMBIN TIME 10.6 SECS (9.5-12.5)
[2019-08-28 06:48] LABS: BASOPHILS % (AUTO) 0.5 % (0.0-2.0); EOSINOPHILS # (AUTO) 0.2 K/uL (0.0-0.4); EOSINOPHILS % (AUTO) 1.9 % (0.0-4.0); HEMATOCRIT 22.9 % (36-54); HEMOGLOBIN 7.6 g/dL (14.0-18.0); LYMPHOCYTES # (AUTO) 1.3 K/uL (1.0-5.5); LYMPHOCYTES % (AUTO) 14.1 % (20.5-51.5); MEAN CORPUSCULAR HEMOGLOBIN 29 pg (27-31); MEAN CORPUSCULAR HGB CONC 33 % (32-36); MEAN CORPUSCULAR VOLUME 87 fL (79.0-98.0); MONOCYTES # (AUTO) 2.5 K/uL (0.0-1.0); MONOCYTES % (AUTO) 28.3 % (1.7-9.3); NEUTROPHILS % (AUTO) 55.2 % (40.0-70.0); PLATELET COUNT (AUTO) 113 K/uL (130-430); RED BLOOD CELL COUNT(AUTO) 2.63 MIL/uL (4.2-6.2); RED CELL DISTRIBUTION WIDTH 20.2 % (9.0-15.0)
[2019-08-28 07:02] LABS: ALBUMIN 2.5 g/dL (3.4-4.8); CALCIUM 8.2 mg/dL (8.4-11.0); CREATININE 1.08 mg/dL (0.55-1.30); POTASSIUM 4.1 mmol/L (3.5-5.1); TOTAL BILIRUBIN 0.7 mg/dL (0.0-1.0)
[2019-08-28 07:49] VITALS: BP_SYST 133
[2019-08-28] MEDS: THIAMINE HCL 100 MG TABLET PO SCH (08:26)
[2019-08-28] MEDS: FOLIC ACID 1 MG TABLET PO SCH (08:26)
[2019-08-28] MEDS: GABAPENTIN 300 MG CAPSULE PO SCH ×3 (08:26→20:29)
[2019-08-28] MEDS: MAGNESIUM OXIDE 400 MG TABLET PO SCH ×2 (08:26→20:28)
[2019-08-28] MEDS: METOPROLOL TARTRATE 25 MG TABLET PO SCH ×2 (08:26→20:29)
[2019-08-28] MEDS: FAMOTIDINE 20 MG TABLET PO SCH (08:26)
[2019-08-28] MEDS: RIVAROXABAN 10 MG TABLET PO SCH (08:27)
[2019-08-28] MEDS: buPROPion HCL 150 MG TABLET.SA PO SCH (08:27)
[2019-08-28] MEDS: NICOTINE 14 MG/24 HR PATCH.TD24 TD SCH (08:27)
[2019-08-28 12:31] VITALS: BP_SYST 133
[2019-08-28] MEDS: LORazepam 1 MG TABLET PO PRN (13:46)
[2019-08-28 17:07] VITALS: BP_SYST 126
[2019-08-28 20:23] VITALS: BP_SYST 131
[2019-08-29 00:33] VITALS: BP_SYST 146
[2019-08-29] MEDS: LORazepam 1 MG TABLET PO PRN (02:06)
[2019-08-29] MEDS ORDERED: LORazepam 2 MG/ML VIAL IM ONE ×3 (05:15→18:45)
[2019-08-29] MEDS ORDERED: HALOPERIDOL LACTATE 5 MG/ML VIAL IM ONE ×2 (05:15→18:45)
[2019-08-29] MEDS ORDERED: DIPHENHYDRAMINE INJ 50 MG/ML VIAL IM ONE ×3 (05:15→18:45)
[2019-08-29] MEDS: IPRATROPIUM/ALBUTEROL SULFATE 3 ML AMPUL.NEB (DUONEB) INH SCH ×3 (06:00→22:00)
[2019-08-29 08:00] VITALS: BP_SYST 141
[2019-08-29] MEDS: RIVAROXABAN 10 MG TABLET PO SCH (08:46)
[2019-08-29] MEDS: FAMOTIDINE 20 MG TABLET PO SCH (08:46)
[2019-08-29] MEDS: THIAMINE HCL 100 MG TABLET PO SCH (08:46)
[2019-08-29] MEDS: METOPROLOL TARTRATE 25 MG TABLET PO SCH ×2 (08:46→20:48)
[2019-08-29] MEDS: buPROPion HCL 150 MG TABLET.SA PO SCH (08:46)
[2019-08-29] MEDS: FOLIC ACID 1 MG TABLET PO SCH (08:47)
[2019-08-29] MEDS: MAGNESIUM OXIDE 400 MG TABLET PO SCH ×2 (08:47→20:48)
[2019-08-29] MEDS: GABAPENTIN 300 MG CAPSULE PO SCH ×3 (08:47→20:48)
[2019-08-29] MEDS: NICOTINE 14 MG/24 HR PATCH.TD24 TD SCH (08:52)
[2019-08-29] MEDS ORDERED: HYDROcodone/ACETAMIN 10-325 MG TAB PO PRN (09:30)
[2019-08-29] MEDS ORDERED: LORazepam 1 MG TABLET PO PRN (09:30)
[2019-08-29] MEDS ORDERED: HYDROcodone/ACETAMIN 5-325 MG TAB (NORCO/ VICODIN) PO PRN (09:30)
[2019-08-29 12:41] VITALS: BP_SYST 107
[2019-08-29] MEDS: HALOPERIDOL LACTATE 5 MG/ML VIAL IM PRN (13:14)
[2019-08-29 16:17] VITALS: BP_SYST 107
[2019-08-29 20:00] VITALS: BP_SYST 138
[2019-08-29] MEDS ORDERED: DIPHENHYDRAMINE INJ 50 MG/ML VIAL IM PRN (20:00)
[2019-08-29] MEDS ORDERED: HALOPERIDOL LACTATE 5 MG/ML VIAL IM PRN (20:00)
[2019-08-29] MEDS ORDERED: LORazepam 2 MG/ML VIAL IM PRN (20:00)
[2019-08-29] MEDS: ACETAMINOPHEN 325 MG TABLET PO PRN (20:54)
[2019-08-30] VITALS (7 sets, daily range): BP systolic 100–145
[2019-08-30] MEDS: IPRATROPIUM/ALBUTEROL SULFATE 3 ML AMPUL.NEB (DUONEB) INH SCH ×3 (07:40→21:58)
[2019-08-30] MEDS: RIVAROXABAN 10 MG TABLET PO SCH (08:34)
[2019-08-30] MEDS: buPROPion HCL 150 MG TABLET.SA PO SCH (08:35)
[2019-08-30] MEDS: ACETAMINOPHEN 325 MG TABLET PO PRN (08:35)
[2019-08-30] MEDS: QUEtiapine FUMARATE 25 MG TABLET PO SCH ×2 (08:35→21:22)
[2019-08-30] MEDS: GABAPENTIN 300 MG CAPSULE PO SCH ×3 (08:36→21:23)
[2019-08-30] MEDS: THIAMINE HCL 100 MG TABLET PO SCH (08:36)
[2019-08-30] MEDS: MAGNESIUM OXIDE 400 MG TABLET PO SCH ×2 (08:36→21:33)
[2019-08-30] MEDS: FAMOTIDINE 20 MG TABLET PO SCH (08:36)
[2019-08-30] MEDS: FOLIC ACID 1 MG TABLET PO SCH (08:36)
[2019-08-30] MEDS: NICOTINE 14 MG/24 HR PATCH.TD24 TD SCH (08:37)
[2019-08-30] MEDS: METOPROLOL TARTRATE 25 MG TABLET PO SCH ×2 (08:37→21:23)
[2019-08-30 08:58] LABS: HEMATOCRIT 24.5 % (36-54); MEAN CORPUSCULAR HEMOGLOBIN 28 pg (27-31); MEAN CORPUSCULAR HGB CONC 33 % (32-36); MEAN CORPUSCULAR VOLUME 86 fL (79.0-98.0); PLATELET COUNT (AUTO) 196 K/uL (130-430); RED BLOOD CELL COUNT(AUTO) 2.87 MIL/uL (4.2-6.2); WHITE BLOOD COUNT (AUTO) 12.5 K/uL (4.8-10.8)
[2019-08-30 09:20] LABS: CALCIUM 8.7 mg/dL (8.4-11.0); CREATININE 1.06 mg/dL (0.55-1.30)
[2019-08-30 09:21] LABS: ALBUMIN 2.8 g/dL (3.4-4.8); TOTAL BILIRUBIN 1.4 mg/dL (0.0-1.0)
[2019-08-30 09:23] LABS: ATYPICAL LYMPHOCYTES % 0 % (0-0); BAND % (MANUAL) 4 % (0-6); BASOPHILS % (MANUAL) 0 % (0-2); EOSINOPHILS % (MANUAL) 1 % (0-7); LYMPHOCYTES % (MANUAL) 8 % (20-46); MONOCYTES % (MANUAL) 17 % (0-11)
[2019-08-30] MEDS: LORazepam 1 MG TABLET PO PRN ×2 (11:14→23:51)
[2019-08-31 00:02] VITALS: BP_SYST 111
[2019-08-31 06:58] LABS: ALBUMIN 2.8 g/dL (3.4-4.8); CALCIUM 8.8 mg/dL (8.4-11.0); CREATININE 1.37 mg/dL (0.55-1.30); POTASSIUM 4.2 mmol/L (3.5-5.1); TOTAL BILIRUBIN 1.5 mg/dL (0.0-1.0)
[2019-08-31] MEDS ORDERED: NACL 0.9% 1,000 ML IV SCH (07:36)
[2019-08-31] MEDS: IPRATROPIUM/ALBUTEROL SULFATE 3 ML AMPUL.NEB (DUONEB) INH SCH ×2 (07:53→13:53)
[2019-08-31 08:00] VITALS: BP_SYST 114
[2019-08-31] MEDS ORDERED: QUEtiapine FUMARATE 25 MG TABLET PO SCH (09:00)
[2019-08-31] MEDS: NICOTINE 14 MG/24 HR PATCH.TD24 TD SCH (09:48)
[2019-08-31] MEDS: THIAMINE HCL 100 MG TABLET PO SCH (09:49)
[2019-08-31] MEDS: METOPROLOL TARTRATE 25 MG TABLET PO SCH (09:50)
[2019-08-31] MEDS: MAGNESIUM OXIDE 400 MG TABLET PO SCH (09:51)
[2019-08-31] MEDS: GABAPENTIN 300 MG CAPSULE PO SCH ×2 (09:51→15:09)
[2019-08-31] MEDS: RIVAROXABAN 10 MG TABLET PO SCH (09:51)
[2019-08-31] MEDS: FAMOTIDINE 20 MG TABLET PO SCH (09:52)
[2019-08-31] MEDS: FOLIC ACID 1 MG TABLET PO SCH (09:52)
[2019-08-31] MEDS: buPROPion HCL 150 MG TABLET.SA PO SCH (09:52)
[2019-08-31 13:06] VITALS: BP_SYST 118
[2019-08-31] MEDS: HALOPERIDOL LACTATE 5 MG/ML VIAL IM PRN (13:35)
[2019-08-31 16:18] VITALS: BP_SYST 118
[2019-08-31 17:40] VITALS: BP_SYST 106
== END 2019-08-31 19:10 | DRG 481 ==
LOC: SED 12:01 → STU 13:54 → SMU 08-29 11:42
PROVIDERS: ADMIT Internal Medicine; ATTEND Internal Medicine
PROC: 0QH706Z Insertion of Intramedullary Internal Fixation Device into Left Upper Femur, Open Approach (ICD-10-PCS; principal; 2019-08-25 17:30)
DX: S72.142A Displaced intertrochanteric fracture of left femur, initial encounter for closed fracture (principal); J44.1 Chronic obstructive pulmonary disease with (acute) exacerbation; I42.9 Cardiomyopathy, unspecified; I48.0 Paroxysmal atrial fibrillation; K70.9 Alcoholic liver disease, unspecified; I10 Essential (primary) hypertension; G62.9 Polyneuropathy, unspecified; G47.33 Obstructive sleep apnea (adult) (pediatric); F41.9 Anxiety disorder, unspecified; D72.829 Elevated white blood cell count, unspecified; F29 Unspecified psychosis not due to a substance or known physiological condition; D50.0 Iron deficiency anemia secondary to blood loss (chronic); E86.0 Dehydration; F17.210 Nicotine dependence, cigarettes, uncomplicated; R45.1 Restlessness and agitation; R41.0 Disorientation, unspecified; T40.695A Adverse effect of other narcotics, initial encounter; Y92.238 Other place in hospital as the place of occurrence of the external cause; F10.20 Alcohol dependence, uncomplicated; W18.30XA Fall on same level, unspecified, initial encounter; Y93.89 Activity, other specified; Y92.89 Other specified places as the place of occurrence of the external cause; Y99.8 Other external cause status; Z79.899 Other long term (current) drug therapy; Z91.19 Patient's noncompliance with other medical treatment and regimen; Z78.1 Physical restraint status
CPT/HCPCS: 36415; 71045; 73502; 73560-TC; 76000; 80048; 80053; 81003; 82140-TC; 82962; 83605; 85007; 85025; 85027; 85610-TC; 85730-TC; 86886; 86900; 86901; 87040-TC; 87081; 87086; 93005; 94010; 94640; 94760; 96374; 97110-GP; 97112-GP; 97116-GP; 97530-GP; 99285; C1713; C1769; G0378; G0482; J0690; J1170; J1200; J1630; J2060; J2270; J2405; J2704; J3010; J3490; J7030; J7040; J7120

== ENCOUNTER 2020-04-09 18:39 | Emergency (ER) | payer OTHER ==
[~2020-04-09] VITALS: Ht 167.6 cm; Wt 81.6 kg
[~2020-04-09 18:39] MED LIST changes: +BACL10TA PO; +HYDR-3925 PO
[2020-04-09 18:59] VITALS: BP_SYST 124
--- NOTE | 2020-04-09 19:33 | NUR ---
Patient to ER bed 04 to gown for evaluation. Side rails up.
--- NOTE | 2020-04-09 19:44 | NUR ---
ER Dr. MICHEL at bedside examining patient.
--- NOTE | 2020-04-09 19:45 | NUR ---
PT A&O X4 FROM HOME C/O OF LEFT HIP AND LEFT SHOULDER PAIN THAT IS DUE TO PREEXISTING INJURIES. PT HAS TROUBLE BALANCING AND PAIN IS EXACERBATED BY MOVEMENT AND PLACING WEIGHT ON JOINT. PT RATES PAIN 9 OUT OF 10. PT LAST PAIN MEDICATION WAS TAKEN AROUND 1PM. PT HAS BEEN BACK AND FORTH BETWEEN DOCTORS ATTEMPTING TO GET A CT SCAN DONE TO TELL HIM MORE INFORMATION ABOUT PLAN OF CARE.
[2020-04-09] MEDS ORDERED: LORazepam 1 MG TABLET PO ONE (20:00)
[2020-04-09] MEDS ORDERED: HYDROcodone/ACETAMIN 5-325 MG TAB (NORCO/ VICODIN) PO ONE (20:00)
--- NOTE | 2020-04-09 20:10 | NUR ---
Patient transported to radiology via WHEELCHAIR, accompanied by
--- NOTE | 2020-04-09 20:26 | NUR ---
PATIENT RETURNED FROM RADIOLOGY IN STABLE CONDITION.
--- NOTE | 2020-04-09 20:49 | NUR ---
PATIENT UNABLE TO TAKE MEDICATIONS. PT DROVE HIMSELF TO HOSPITAL AND DOES NOT HAVE A RIDE HOME. PT IS UNDERSTANDING AND STATES HE WILL TAKE HIS PRESCRIBED PAIN MEDICATION, NORCO, AT HOME.
--- NOTE | 2020-04-09 21:15 | NUR ---
CONTACTED RADIOLOGY TO PRINT COPY OF CT SCAN ON CD.
--- NOTE | 2020-04-09 21:40 | NUR ---
PATIENT INFORMED CD CANNOT BE BURNED DUE TO TECHNOLOGICAL DIFFICULTIES. PT INSTRUCTED TO CONTACT ADMISSION AND RECORDS TO RECEIVED COPY OF CT AND SENT TO DOCTORS OFFICE.
[2020-04-09 21:49] VITALS: BP_SYST 132
--- NOTE | 2020-04-09 21:49 | NUR ---
Patient given written and verbal discharge instructions and verbalizes understanding. ER MD discussed with patient the results and treatment provided. Patient in stable condition. ID arm band removed. Rx of ATIVAN given. Patient educated on pain management and to follow up with PMD. Pain Scale 9/10. Opportunity for questions provided and answered. Medication side effect fact sheet provided.
== END 2020-04-09 21:49 | disposition home or self-care (01) ==
LOC: SED 18:39
DX: M25.552 Pain in left hip (principal); I10 Essential (primary) hypertension; I48.91 Unspecified atrial fibrillation
CPT/HCPCS: 72192-TC; 76376; 99284

== ENCOUNTER 2020-04-11 16:01 | Emergency (ER) | payer OTHER ==
[~2020-04-11] VITALS: Ht 167.6 cm; Wt 81.6 kg
[2020-04-11 16:16] VITALS: BP_SYST 110
--- NOTE | 2020-04-11 16:17 | NUR ---
Patient left without being seen.
== END 2020-04-11 16:17 | disposition left against medical advice (07) ==
LOC: SED 16:01
DX: R11.0 Nausea (principal); Z53.21 Procedure and treatment not carried out due to patient leaving prior to being seen by health care provider

== ENCOUNTER 2020-09-01 08:52 | Emergency (ER) | payer OTHER ==
[~2020-09-01] VITALS: Ht 167.6 cm; Wt 79.4 kg
--- NOTE | 2020-09-01 08:52 | NUR ---
BIB EMT FROM HOME FOR GENERAL WAEKNESS AND ETOH ABUSE, CALM, ALERT, RESP UNLABORED, SKIN WARM AND DRY
[2020-09-01 08:56] VITALS: BP_SYST 150
--- NOTE | 2020-09-01 09:05 | NUR ---
DR CARRILLO IN TO ASSESS.
[2020-09-01] MEDS: MORPHINE 2 MG/ML INJ. SYRINGE IVP ONE (09:26)
[2020-09-01] MEDS: KETAMINE 30 MG/3 ML SYRINGE 10 MG in NS 100 ML IV ONE (09:27)
[2020-09-01] MEDS ORDERED: KETAMINE 30 MG/3 ML SYRINGE ONE (09:27)
[2020-09-01] MEDS: NACL 0.9% 2,000 ML IV ONE (09:29)
[2020-09-01 09:34] LABS: HEMOGLOBIN 14.6 g/dL (14.0-18.0)
[2020-09-01 09:39] LABS: BASOPHILS % (AUTO) 0.3 % (0.0-2.0); CALCIUM 8.7 mg/dL (8.4-11.0); CREATININE 1.19 mg/dL (0.55-1.30); HEMATOCRIT 41.7 % (36-54); LYMPHOCYTES # (AUTO) 1.1 K/uL (1.0-5.5); LYMPHOCYTES % (AUTO) 8.4 % (20.5-51.5); MEAN CORPUSCULAR HEMOGLOBIN 31 pg (27-31); MEAN CORPUSCULAR HGB CONC 35 % (32-36); MEAN CORPUSCULAR VOLUME 87 fL (79.0-98.0); MONOCYTES # (AUTO) 1.5 K/uL (0.0-1.0); MONOCYTES % (AUTO) 11.9 % (1.7-9.3); NEUTROPHILS # (AUTO) 10.3 K/uL (1.8-7.7); NEUTROPHILS % (AUTO) 79.4 % (40.0-70.0); PLATELET COUNT (AUTO) 156 K/uL (130-430); POTASSIUM 3.7 mmol/L (3.5-5.1); RED BLOOD CELL COUNT(AUTO) 4.77 MIL/uL (4.2-6.2); RED CELL DISTRIBUTION WIDTH 13.6 % (9.0-15.0); WHITE BLOOD COUNT (AUTO) 12.9 K/uL (4.8-10.8)
[2020-09-01 09:45] LABS: ALBUMIN 3.7 g/dL (3.4-4.8); TOTAL BILIRUBIN 1.8 mg/dL (0.0-1.0)
--- NOTE | 2020-09-01 09:46 | NUR ---
MEDICATED ORDERED, PT STATED FEELING BETTER. PAIN TOLERABLE. ST ON MONITOR . RESP UNLABORED, SKIN WARM AND DRY
--- NOTE | 2020-09-01 10:29 | NUR ---
DR CARRILLO IN TO REASSESS
[2020-09-01] MEDS ORDERED: LIB25 PO (10:33)
[2020-09-01] MEDS: LORazepam 2 MG/ML VIAL IVP ONE (11:07)
--- NOTE | 2020-09-01 11:20 | NUR ---
SR ON MONITOR NO ECTOPY, RESP UNLABORED, SKIN WARM AND DRY. DENIES CP/SOB
--- NOTE | 2020-09-01 12:02 | NUR ---
RESTING EASY, CALM, ALERT, . RESP UNLABORED. SKIN WARM AND DRY. NO DISTRESS
[2020-09-01 12:45] VITALS: BP_SYST 123
--- NOTE | 2020-09-01 12:46 | NUR ---
Patient given written and verbal discharge instructions and verbalizes understanding. ER MD discussed with patient the results and treatment provided. Patient in stable condition. ID arm band removed. IV catheter removed intact and dressing applied, no active bleeding. Rx of LIBRIUM given. Patient educated on pain management and to follow up with PMD. Pain Scale 0/10 Opportunity for questions provided and answered. Medication side effect fact sheet provided.
== END 2020-09-01 12:46 | disposition home or self-care (01) ==
LOC: SED 08:52
DX: E86.0 Dehydration (principal); I10 Essential (primary) hypertension; I48.91 Unspecified atrial fibrillation; F10.10 Alcohol abuse, uncomplicated; G47.30 Sleep apnea, unspecified; F41.9 Anxiety disorder, unspecified; Z79.899 Other long term (current) drug therapy
CPT/HCPCS: 36415; 71045; 80053; 82550; 83880; 84484; 85025; 93005; 96365; 96375; 99285; J2060; J2270; J7030

== ENCOUNTER 2020-09-02 12:43 | Emergency (ER) | payer OTHER ==
[~2020-09-02] VITALS: Ht 167.6 cm; Wt 79.4 kg
[~2020-09-02 12:43] MED LIST changes: +LIB25 PO
[2020-09-02 12:57] VITALS: BP_SYST 129
[2020-09-02] MEDS ORDERED: OXYCODONE/ACETAMINOPHEN 5-325 TABLET PO ONE (13:30)
[2020-09-02] MEDS ORDERED: LORazepam 2 MG/ML VIAL IVP ONE (13:30)
[2020-09-02] MEDS ORDERED: NACL 0.9% 2,000 ML IV ONE (13:30)
[2020-09-02 14:08] LABS: ANION GAP 7 (5-15); CALCIUM 8.5 mg/dL (8.4-11.0); CHLORIDE 98 mmol/L (98-107); CREATININE 0.96 mg/dL (0.55-1.30); GLUCOSE 104 mg/dL (70-99); POTASSIUM 3.1 mmol/L (3.5-5.1); SODIUM SERUM 136 mmol/L (136-145); UREA NITROGEN, BLOOD 11 mg/dL (8-21)
[2020-09-02 14:09] LABS: GFR AFRICAN AMERICAN 102 mL/min (>90)
[2020-09-02 14:14] LABS: ALANINE AMINOTRANSFERASE 37 U/L (12-78); ALBUMIN 3.3 g/dL (3.4-4.8); ALCOHOL, BLOOD < 3 mg/dL (<10); ASPARTATE AMINOTRANSFERASE 36 U/L (10-37); TOTAL BILIRUBIN 1.4 mg/dL (0.0-1.0)
[2020-09-02 14:15] LABS: HEMOGLOBIN 13.7 g/dL (14.0-18.0)
[2020-09-02 14:20] LABS: BASOPHILS % (AUTO) 0.4 % (0.0-2.0); EOSINOPHILS # (AUTO) 0.1 K/uL (0.0-0.4); EOSINOPHILS % (AUTO) 0.6 % (0.0-4.0); HEMATOCRIT 39.5 % (36-54); LYMPHOCYTES # (AUTO) 1.2 K/uL (1.0-5.5); LYMPHOCYTES % (AUTO) 13.3 % (20.5-51.5); MEAN CORPUSCULAR HEMOGLOBIN 31 pg (27-31); MEAN CORPUSCULAR HGB CONC 35 % (32-36); MONOCYTES % (AUTO) 10.9 % (1.7-9.3); NEUTROPHILS # (AUTO) 6.7 K/uL (1.8-7.7); NEUTROPHILS % (AUTO) 74.8 % (40.0-70.0); PLATELET COUNT (AUTO) 104 K/uL (130-430); RED BLOOD CELL COUNT(AUTO) 4.44 MIL/uL (4.2-6.2); RED CELL DISTRIBUTION WIDTH 13.7 % (9.0-15.0)
[2020-09-02 14:21] LABS: MEAN CORPUSCULAR VOLUME 89 fL (79.0-98.0)
[2020-09-02] MEDS ORDERED: POTASSIUM CHLORIDE 20 MEQ/PKT PACKET PO ONE (15:00)
[2020-09-02] MEDS ORDERED: POTASSIUM CHLORIDE 20 MEQ/PKT PACKET ONE (15:02)
[2020-09-02 15:38] VITALS: BP_SYST 129
[2020-09-03] MEDS ORDERED: TOP25 PO (20:01)
[2020-09-03] MEDS ORDERED: CHLO25CA10 PO (20:01)
[2020-09-03] MEDS ORDERED: HYDR-3917 PO (20:07)
[2020-09-03] MEDS ORDERED: NEU400 PO (20:07)
[2020-09-03] MEDS ORDERED: BUSP10TA3 PO (20:07)
[2020-09-03] MEDS ORDERED: METO25TA6 PO (20:07)
[2020-09-03] MEDS ORDERED: CYCL-10 PO (20:07)
[2020-09-03] MEDS ORDERED: METH-634 PO (20:07)
[2020-09-03] MEDS ORDERED: MELO15TA13 PO (20:07)
[2020-09-03] MEDS ORDERED: SER25 PO (20:07)
== END 2020-09-02 15:39 | disposition home or self-care (01) ==
LOC: SED 12:43
DX: E86.0 Dehydration (principal); E87.6 Hypokalemia; F10.239 Alcohol dependence with withdrawal, unspecified; I10 Essential (primary) hypertension; I48.91 Unspecified atrial fibrillation; F41.9 Anxiety disorder, unspecified; G47.30 Sleep apnea, unspecified; Z79.899 Other long term (current) drug therapy
CPT/HCPCS: 36415; 80053; 85025; 93005; 96361; 96374; 99284; G0482; J2060; J7030

== ENCOUNTER 2020-11-12 22:54 | Inpatient (IN) | payer OTHER, SELFPAY ==
[~2020-11-12] VITALS: Ht 167.6 cm; Wt 80.4 kg
[~2020-11-12 22:54] MED LIST changes: -BACL10TA PO; -BUPR200T2 PO; +BUSP10TA3 PO; -FOLI-43 PO; -GABA-531 PO; +HYDR-3917 PO; -HYDR-3925 PO; -LIB25 PO; -LORA-259 PO; -MAGN200T9 PO; +METH-634 PO; -METO25TA3 PO; +METO25TA6 PO; +NEU400 PO; -THIA100T73 PO; +TOP25 PO
[2020-11-12 23:02] VITALS: BP_SYST 147
[2020-11-12] MEDS ORDERED: DILTIAZEM HCL 25 MG/5 ML VIAL IVP ONE (23:15)
[2020-11-12 23:33] LABS: BASOPHILS # (AUTO) 0.1 K/uL (0.0-0.2); BASOPHILS % (AUTO) 0.4 % (0.0-2.0); EOSINOPHILS # (AUTO) 0.1 K/uL (0.0-0.4); EOSINOPHILS % (AUTO) 0.6 % (0.0-4.0); HEMATOCRIT 47.9 % (36-54); HEMOGLOBIN 15.7 g/dL (14.0-18.0); LYMPHOCYTES # (AUTO) 2.3 K/uL (1.0-5.5); LYMPHOCYTES % (AUTO) 16.4 % (20.5-51.5); MEAN CORPUSCULAR HEMOGLOBIN 30 pg (27-31); MEAN CORPUSCULAR HGB CONC 33 % (32-36); MEAN CORPUSCULAR VOLUME 92 fL (79.0-98.0); MONOCYTES # (AUTO) 0.9 K/uL (0.0-1.0); NEUTROPHILS # (AUTO) 10.9 K/uL (1.8-7.7); NEUTROPHILS % (AUTO) 76.6 % (40.0-70.0); PLATELET COUNT (AUTO) 216 K/uL (130-430); RED BLOOD CELL COUNT(AUTO) 5.22 MIL/uL (4.2-6.2); RED CELL DISTRIBUTION WIDTH 14.5 % (9.0-15.0); WHITE BLOOD COUNT (AUTO) 14.2 K/uL (4.8-10.8)
[2020-11-13] MEDS ORDERED: DILTIAZEM HCL 25 MG/5 ML VIAL IVP ONE
[2020-11-13 00:02] LABS: INR 1.1 (0.80-1.20); PROTHROMBIN TIME 10.9 SECS (9.5-12.5)
[2020-11-13 00:14] LABS: ALBUMIN 3.9 g/dL (3.4-4.8); CALCIUM 8.5 mg/dL (8.4-11.0); CREATININE 1.28 mg/dL (0.55-1.30); POTASSIUM 3.2 mmol/L (3.5-5.1); THYROID STIMULATING HORMONE 2.44 uIu/mL (0.36-3.74); TOTAL BILIRUBIN 1.2 mg/dL (0.0-1.0)
[2020-11-13] MEDS ORDERED: MAGNESIUM SULFATE 50 ML IV ONE (01:00)
[2020-11-13] MEDS ORDERED: chlordiazePOXIDE HCL 25 MG CAPSULE PO PRN (01:15)
[2020-11-13] MEDS ORDERED: LORazepam 2 MG/ML VIAL IVP ONE (01:15)
[2020-11-13 03:25] VITALS: BP_SYST 126
[2020-11-13] MEDS ORDERED: HYDROcodone/ACETAMIN 5-325 MG TAB (NORCO/ VICODIN) PO ONE (03:30)
[2020-11-13] MEDS: ENOXAPARIN SODIUM 40 MG/0.4 ML SYRINGE SUBCUT SCH (08:31)
[2020-11-13 08:38] VITALS: BP_SYST 124
[2020-11-13] MEDS ORDERED: DILTIAZEM HCL 60 MG TABLET PO SCH (09:00)
[2020-11-13] MEDS ORDERED: AMIODARONE HCL 200 MG TABLET PO ONE (09:30)
[2020-11-13] MEDS ORDERED: METOPROLOL SUCCINATE 50 MG TAB.SR.24H (TOPROL XL) PO ONE (09:30)
[2020-11-13] MEDS: D5/0.45 NS 1,000 ML IV SCH ×2 (10:19→14:06)
[2020-11-13 11:32] VITALS: BP_SYST 111
[2020-11-13] MEDS ORDERED: NALOXONE HCL 0.4 MG/ML AMP (NARCAN) IVP PRN (14:00)
[2020-11-13] MEDS ORDERED: LevALBUTEROL HCL 1.25 MG/0.5 ML *CONC.* VIAL.NEB (XOPENEX CONC.) INH PRN (14:00)
[2020-11-13] MEDS ORDERED: GABAPENTIN 400 MG CAPSULE PO ONE (14:30)
[2020-11-13] MEDS: ONDANSETRON HCL 4 MG/2 ML VIAL IVP PRN ×2 (14:48→22:18)
[2020-11-13] MEDS: HYDROcodone/ACETAMIN 5-325 MG TAB (NORCO/ VICODIN) PO PRN ×2 (14:50→22:18)
[2020-11-13] MEDS ORDERED: busPIRone HCL 5 MG TABLET PO ONE (15:00)
[2020-11-13] MEDS ORDERED: methocarbamoL 500 MG TABLET PO ONE (15:00)
[2020-11-13] MEDS: LevALBUTEROL HCL 1.25 MG/0.5 ML *CONC.* VIAL.NEB (XOPENEX CONC.) INH SCH (15:00)
[2020-11-13] MEDS ORDERED: chlordiazePOXIDE HCL 25 MG CAPSULE PO ONE (15:00)
[2020-11-13 15:28] VITALS: BP_SYST 129
[2020-11-13 16:13] VITALS: BP_SYST 104
[2020-11-13 20:00] VITALS: BP_SYST 129
[2020-11-13] MEDS: methocarbamoL 500 MG TABLET PO SCH (22:19)
[2020-11-13] MEDS: GABAPENTIN 400 MG CAPSULE PO SCH (22:19)
[2020-11-13] MEDS: chlordiazePOXIDE HCL 25 MG CAPSULE PO SCH (22:19)
[2020-11-13] MEDS: busPIRone HCL 5 MG TABLET PO SCH (22:20)
[2020-11-13] MEDS: TOPIRAMATE 25 MG TABLET(TOPAMAX) PO SCH (22:20)
[2020-11-14] MEDS: LevALBUTEROL HCL 1.25 MG/0.5 ML *CONC.* VIAL.NEB (XOPENEX CONC.) INH SCH ×4 (00:10→23:00)
[2020-11-14 00:48] VITALS: BP_SYST 121
[2020-11-14] MEDS: HYDROcodone/ACETAMIN 5-325 MG TAB (NORCO/ VICODIN) PO PRN ×2 (04:29→20:46)
[2020-11-14] MEDS: D5/0.45 NS 1,000 ML IV SCH ×2 (04:30→17:45)
[2020-11-14 06:28] LABS: BASOPHILS % (AUTO) 0.2 % (0.0-2.0); EOSINOPHILS # (AUTO) 0.3 K/uL (0.0-0.4); EOSINOPHILS % (AUTO) 3.6 % (0.0-4.0); HEMATOCRIT 39.4 % (36-54); HEMOGLOBIN 13.2 g/dL (14.0-18.0); LYMPHOCYTES # (AUTO) 2.1 K/uL (1.0-5.5); LYMPHOCYTES % (AUTO) 26.4 % (20.5-51.5); MEAN CORPUSCULAR HEMOGLOBIN 31 pg (27-31); MEAN CORPUSCULAR HGB CONC 34 % (32-36); MEAN CORPUSCULAR VOLUME 92 fL (79.0-98.0); MONOCYTES # (AUTO) 0.8 K/uL (0.0-1.0); MONOCYTES % (AUTO) 9.7 % (1.7-9.3); NEUTROPHILS # (AUTO) 4.7 K/uL (1.8-7.7); NEUTROPHILS % (AUTO) 60.1 % (40.0-70.0); PLATELET COUNT (AUTO) 101 K/uL (130-430); RED BLOOD CELL COUNT(AUTO) 4.28 MIL/uL (4.2-6.2); RED CELL DISTRIBUTION WIDTH 14.2 % (9.0-15.0); WHITE BLOOD COUNT (AUTO) 7.8 K/uL (4.8-10.8)
[2020-11-14 06:49] LABS: CALCIUM 8.4 mg/dL (8.4-11.0); CREATININE 1.03 mg/dL (0.55-1.30); POTASSIUM 3.6 mmol/L (3.5-5.1)
[2020-11-14 07:45] VITALS: BP_SYST 130
[2020-11-14] MEDS: GABAPENTIN 400 MG CAPSULE PO SCH ×3 (08:20→20:23)
[2020-11-14] MEDS: METOPROLOL SUCCINATE 50 MG TAB.SR.24H (TOPROL XL) PO SCH (08:20)
[2020-11-14] MEDS: THIAMINE HCL 100 MG TABLET PO SCH (08:21)
[2020-11-14] MEDS: busPIRone HCL 5 MG TABLET PO SCH ×3 (08:21→20:22)
[2020-11-14] MEDS: methocarbamoL 500 MG TABLET PO SCH ×3 (08:21→20:22)
[2020-11-14] MEDS: chlordiazePOXIDE HCL 25 MG CAPSULE PO SCH ×3 (08:21→20:22)
[2020-11-14] MEDS: ENOXAPARIN SODIUM 40 MG/0.4 ML SYRINGE SUBCUT SCH (08:23)
[2020-11-14 11:55] VITALS: BP_SYST 114; BP_SYST 85
[2020-11-14 16:32] VITALS: BP_SYST 107
[2020-11-14 20:00] VITALS: BP_SYST 90
[2020-11-14] MEDS: TOPIRAMATE 25 MG TABLET(TOPAMAX) PO SCH (20:22)
[2020-11-15 00:08] VITALS: BP_SYST 100
[2020-11-15] MEDS: LevALBUTEROL HCL 1.25 MG/0.5 ML *CONC.* VIAL.NEB (XOPENEX CONC.) INH SCH ×3 (07:00→23:00)
[2020-11-15 08:35] VITALS: BP_SYST 94
[2020-11-15] MEDS: D5/0.45 NS 1,000 ML IV SCH ×3 (08:39→22:24)
[2020-11-15] MEDS: GABAPENTIN 400 MG CAPSULE PO SCH ×3 (08:39→20:20)
[2020-11-15] MEDS: THIAMINE HCL 100 MG TABLET PO SCH (08:39)
[2020-11-15] MEDS: chlordiazePOXIDE HCL 25 MG CAPSULE PO SCH ×3 (08:39→20:20)
[2020-11-15] MEDS: methocarbamoL 500 MG TABLET PO SCH ×3 (08:40→20:21)
[2020-11-15] MEDS: METOPROLOL SUCCINATE 50 MG TAB.SR.24H (TOPROL XL) PO SCH (08:40)
[2020-11-15] MEDS: busPIRone HCL 5 MG TABLET PO SCH ×3 (08:40→20:20)
[2020-11-15] MEDS: ENOXAPARIN SODIUM 40 MG/0.4 ML SYRINGE SUBCUT SCH (08:50)
[2020-11-15] MEDS: HYDROcodone/ACETAMIN 5-325 MG TAB (NORCO/ VICODIN) PO PRN ×2 (11:03→20:21)
[2020-11-15 12:09] VITALS: BP_SYST 95
[2020-11-15 16:05] VITALS: BP_SYST 92
[2020-11-15 20:00] VITALS: BP_SYST 102
[2020-11-15] MEDS ORDERED: chlordiazePOXIDE HCL 25 MG CAPSULE ONE (20:18)
[2020-11-15] MEDS: TOPIRAMATE 25 MG TABLET(TOPAMAX) PO SCH (20:21)
[2020-11-15] MEDS: NICOTINE 21 MG/24 HR PATCH.TD24 TD SCH (22:23)
[2020-11-16] VITALS: BP_SYST 114
[2020-11-16] MEDS: LevALBUTEROL HCL 1.25 MG/0.5 ML *CONC.* VIAL.NEB (XOPENEX CONC.) INH SCH ×2 (07:00→15:00)
[2020-11-16 08:00] VITALS: BP_SYST 130
[2020-11-16] MEDS: NICOTINE 21 MG/24 HR PATCH.TD24 TD SCH (08:37)
[2020-11-16] MEDS: GABAPENTIN 400 MG CAPSULE PO SCH ×2 (08:37→15:01)
[2020-11-16] MEDS: methocarbamoL 500 MG TABLET PO SCH ×2 (08:38→15:01)
[2020-11-16] MEDS: busPIRone HCL 5 MG TABLET PO SCH ×2 (08:39→15:00)
[2020-11-16] MEDS: METOPROLOL SUCCINATE 50 MG TAB.SR.24H (TOPROL XL) PO SCH (08:39)
[2020-11-16] MEDS: THIAMINE HCL 100 MG TABLET PO SCH (08:39)
[2020-11-16] MEDS: ENOXAPARIN SODIUM 40 MG/0.4 ML SYRINGE SUBCUT SCH (08:42)
[2020-11-16] MEDS: HYDROcodone/ACETAMIN 5-325 MG TAB (NORCO/ VICODIN) PO PRN (08:53)
[2020-11-16] MEDS: D5/0.45 NS 1,000 ML IV SCH (09:59)
[2020-11-16 12:27] VITALS: BP_SYST 111
[2020-11-16 15:52] VITALS: BP_SYST 111
[2020-11-16 16:15] VITALS: BP_SYST 123
== END 2020-11-16 16:45 | disposition home or self-care (01) | DRG 309 ==
LOC: SED 22:54 → STU 11-13 01:11 → SMU 11-16 09:22
PROVIDERS: ADMIT Family Medicine; ATTEND Family Medicine
DX: I48.91 Unspecified atrial fibrillation (principal); D68.59 Other primary thrombophilia; F10.229 Alcohol dependence with intoxication, unspecified; Y90.9 Presence of alcohol in blood, level not specified; I10 Essential (primary) hypertension; G89.4 Chronic pain syndrome; Z20.822 Contact with and (suspected) exposure to COVID-19; Z79.01 Long term (current) use of anticoagulants
CPT/HCPCS: 36415; 71045; 80048; 80053; 82550; 83735; 83880; 84443; 84484; 85025; 85610-TC; 85730-TC; 87081; 93005; 94640; 94760; 96365; 96366; 96368; 96375; 99291; G0378; G0482; J1650; J2405; J3490; J7612

== ENCOUNTER 2021-01-03 13:29 | Emergency (ER) | payer OTHER ==
[~2021-01-03] VITALS: Ht 167.6 cm; Wt 83.9 kg
[2021-01-03 13:45] VITALS: BP_SYST 125
--- NOTE | 2021-01-03 13:45 | NUR ---
Patient triaged and placed in waiting room. VSS and patient appears in no acute distress at this time. Accompanied by GIRLFRIEND, awaiting available bed, and MD notified of need for MSE.
[2021-01-03 15:17] LABS: BASOPHILS % (AUTO) 0.3 % (0.0-2.0); EOSINOPHILS % (AUTO) 0.4 % (0.0-4.0); HEMATOCRIT 44.8 % (36-54); HEMOGLOBIN 15.6 g/dL (14.0-18.0); LYMPHOCYTES % (AUTO) 9.7 % (20.5-51.5); MEAN CORPUSCULAR HEMOGLOBIN 32 pg (27-31); MEAN CORPUSCULAR HGB CONC 35 % (32-36); MEAN CORPUSCULAR VOLUME 92 fL (79.0-98.0); MONOCYTES % (AUTO) 9.9 % (1.7-9.3); NEUTROPHILS # (AUTO) 8.1 K/uL (1.8-7.7); NEUTROPHILS % (AUTO) 79.7 % (40.0-70.0); PLATELET COUNT (AUTO) 121 K/uL (130-430); RED BLOOD CELL COUNT(AUTO) 4.89 MIL/uL (4.2-6.2); RED CELL DISTRIBUTION WIDTH 14.5 % (9.0-15.0); WHITE BLOOD COUNT (AUTO) 10.2 K/uL (4.8-10.8)
[2021-01-03 15:53] LABS: CALCIUM 9.1 mg/dL (8.4-11.0); CREATININE 0.93 mg/dL (0.55-1.30); POTASSIUM 3.2 mmol/L (3.5-5.1)
[2021-01-03 15:59] LABS: ALBUMIN 4.1 g/dL (3.4-4.8); TOTAL BILIRUBIN 2.3 mg/dL (0.0-1.0)
--- NOTE | 2021-01-03 16:45 | NUR ---
Placed in room 4 . Placed on radiation monitor, blood pressure machine and pulse oximeter. To gown for exam. Side rails up.
--- NOTE | 2021-01-03 16:50 | NUR ---
Pt bib girlfriend for abdominal pain 02/11 x2 days. Reports n/v, unable to keep anything down. Denies any fevers at this time. V/S stable, no acute distress noted.
--- NOTE | 2021-01-03 17:15 | NUR ---
ER Dr. Lay at bedside examining patient.
[2021-01-03 18:54] LABS: AMYLASE 51 U/L (0-100); LACTATE DEHYDROGENASE 201 U/L (85-227); LIPASE 188 U/L (73-393)
[2021-01-03 19:04] LABS: INR 1.1 (0.80-1.20); PROTHROMBIN TIME 11.8 SECS (9.5-12.5)
[2021-01-03] MEDS ORDERED: ONDA-8 TL ×2 (19:11→21:13)
[2021-01-03] MEDS ORDERED: HYDR-3917 PO (19:11)
--- NOTE | 2021-01-03 19:14 | NUR ---
Care of patient endorsed to LYUDIMLA Stallings. Pt currently resting in bed, no acute distress noted.
[2021-01-03] MEDS ORDERED: NACL 0.9% 1,000 ML IV ONE (19:15)
[2021-01-03 20:37] LABS: BILIRUBIN,URINE NEGATIVE (NEGATIVE); BLOOD, URINE NEGATIVE (NEGATIVE); CLARITY/URINE CLEAR (CLEAR); COLOR,URINE ORANGE (YELLOW); GLUCOSE,URINE NEGATIVE (NEGATIVE); KETONES,URINE NEGATIVE (NEGATIVE); LEUKOCYTE ESTERASE ,URINE NEGATIVE (NEGATIVE); NITRITE, URINE NEGATIVE (NEGATIVE); PH,URINE 8.5 (5.0-8.0); PROTEIN URINE 2+ (NEGATIVE)
[2021-01-03 20:58] LABS: BACTERIA,URINE RARE /HPF (None Seen); RBC,URINE 0-3 /HPF (0-3); WBC,URINE 0-3 /HPF (0-3)
[2021-01-03 20:59] LABS: CALCIUM OXALATE CRYSTALS,UR None Seen /HPF (None Seen); CALCIUM PHOSPHATE CRYSTALS,UR None Seen /HPF (None Seen); COARSE GRANULAR CASTS,URINE None Seen /LPF (None Seen); FINE GRANULAR CASTS,URINE None Seen /LPF (None Seen); HYALINE CASTS, URINE None Seen /LPF (None Seen); MUCUS,URINE 3+ /LPF (None Seen); OTHER CASTS, URINE None Seen /LPF (None Seen); OTHER CRYSTALS,URINE None Seen /HPF (None Seen); TRICHOMONAS,URINE None Seen /HPF (None Seen); TRIPLE PHOSPHATE CRYSTAL,UR None Seen /HPF (None Seen); URIC ACID CRYSTALS,URINE None Seen /HPF (None Seen); URINE AMORPHOUS PHOSPHATES None Seen /HPF (None Seen); URINE AMORPHOUS URATE None Seen /HPF (None Seen); WAXY CASTS,URINE None Seen /LPF (None Seen); YEAST,URINE None Seen /HPF (None Seen)
[2021-01-03] MEDS ORDERED: IBUPROFEN 800 MG TABLET PO ONE (21:00)
[2021-01-03] MEDS ORDERED: HYDROcodone/ACETAMIN 10-325 MG TAB PO ONE (21:00)
[2021-01-03] MEDS ORDERED: ONDANSETRON 4 MG ODT TAB PO ONE (21:15)
[2021-01-03 21:30] VITALS: BP_SYST 139
--- NOTE | 2021-01-03 21:40 | NUR ---
Patient given written and verbal discharge instructions and verbalizes understanding. ER MD discussed with patient the results and treatment provided. Patient in stable condition. ID arm band removed. Rx given for n/v and pain. IV catheter removed intact and dressing applied, no active bleeding.Patient educated on pain management and to follow up with PMD. Pain Scale 0/10 at present. Opportunity for questions provided and answered.
== END 2021-01-03 21:40 | disposition home or self-care (01) ==
LOC: SED 13:29
DX: R10.12 Left upper quadrant pain (principal); I10 Essential (primary) hypertension; I48.91 Unspecified atrial fibrillation; Z79.899 Other long term (current) drug therapy
CPT/HCPCS: 36415; 74176; 76376; 80053; 81000; 82150; 83615; 83690; 84484; 85025; 85610; 85730; 96360; 99284; J7030

== ENCOUNTER 2021-01-04 23:27 | Emergency (ER) | payer OTHER ==
[~2021-01-04] VITALS: Ht 167.6 cm; Wt 83.9 kg
[~2021-01-04 23:27] MED LIST changes: +ONDA-8 TL
[2021-01-05] VITALS: BP_SYST 143
--- NOTE | 2021-01-05 00:11 | NUR ---
Patient wheeled to bed 7 for evaluation and monitoring
--- NOTE | 2021-01-05 00:40 | NUR ---
Pt remains in stable condition, no s/s of acute distress
[2021-01-05] MEDS ORDERED: NACL 0.9% 1,000 ML IV ONE (00:45)
--- NOTE | 2021-01-05 01:00 | NUR ---
Pt came into ED by himself seeking help ( pt was here last night as well ) for " dehydration " and his heart keep on skipping beats " VSS no s/s of acute distress, even after 12 lead EKG analysis Resting on [employer] up
[2021-01-05 01:13] LABS: BILIRUBIN,URINE 1+ (NEGATIVE); BLOOD, URINE NEGATIVE (NEGATIVE); CLARITY/URINE CLEAR (CLEAR); COLOR,URINE YELLOW (YELLOW); GLUCOSE,URINE NEGATIVE (NEGATIVE); KETONES,URINE 1+ (NEGATIVE); LEUKOCYTE ESTERASE ,URINE NEGATIVE (NEGATIVE); NITRITE, URINE NEGATIVE (NEGATIVE); PROTEIN URINE NEGATIVE (NEGATIVE)
--- NOTE | 2021-01-05 01:15 | NUR ---
Dr. Jay [facility] for pt eval
[2021-01-05 01:23] LABS: BARBITURATE, URINE NEGATIVE (NEG <=200); BENZODIAZEPINE, URINE POSITIVE (NEG <=150); CANNABINOID, URINE NEGATIVE (NEG <=50); COCAINE, URINE NEGATIVE (NEG <=150); METHAMPHETAMINES SCREEN,URINE NEGATIVE (NEG <=500); OPIATE, URINE POSITIVE (NEG <=100); PHENCYCLIDINE SCREEN,URINE NEGATIVE (NEG <=25); UR TRICYCLIC ANTIDEPRESSANTS NEGATIVE (NEG <=300); URINE AMPHETAMINE NEGATIVE (NEG <=500); URINE METHADONE NEGATIVE (NEG <=200); URINE OXYCODONE SCREEN NEGATIVE (NEG <=100); URINE PROPOXYPHENE SCREEN NEGATIVE (NEG <=300)
--- NOTE | 2021-01-05 01:40 | NUR ---
IVF therapy well tolerated
[2021-01-05 01:49] LABS: CALCIUM 8.9 mg/dL (8.4-11.0); CREATININE 0.95 mg/dL (0.55-1.30); POTASSIUM 3.1 mmol/L (3.5-5.1)
[2021-01-05 01:51] LABS: BASOPHILS % (AUTO) 0.3 % (0.0-2.0); EOSINOPHILS # (AUTO) 0.2 K/uL (0.0-0.4); EOSINOPHILS % (AUTO) 1.2 % (0.0-4.0); HEMATOCRIT 42.1 % (36-54); HEMOGLOBIN 14.3 g/dL (14.0-18.0); LYMPHOCYTES # (AUTO) 2.1 K/uL (1.0-5.5); LYMPHOCYTES % (AUTO) 16.1 % (20.5-51.5); MEAN CORPUSCULAR HEMOGLOBIN 32 pg (27-31); MEAN CORPUSCULAR HGB CONC 34 % (32-36); MEAN CORPUSCULAR VOLUME 93 fL (79.0-98.0); MONOCYTES # (AUTO) 1.1 K/uL (0.0-1.0); MONOCYTES % (AUTO) 8.6 % (1.7-9.3); NEUTROPHILS # (AUTO) 9.4 K/uL (1.8-7.7); NEUTROPHILS % (AUTO) 73.8 % (40.0-70.0); PLATELET COUNT (AUTO) 118 K/uL (130-430); RED BLOOD CELL COUNT(AUTO) 4.51 MIL/uL (4.2-6.2); RED CELL DISTRIBUTION WIDTH 14.2 % (9.0-15.0); WHITE BLOOD COUNT (AUTO) 12.7 K/uL (4.8-10.8)
[2021-01-05 01:55] LABS: ALBUMIN 3.7 g/dL (3.4-4.8); TOTAL BILIRUBIN 1.6 mg/dL (0.0-1.0)
--- NOTE | 2021-01-05 02:15 | NUR ---
Dr. Jay bedside for pt re-eval and update
--- NOTE | 2021-01-05 03:08 | NUR ---
VSS no s/s of acute distress Resting on gurney rails up
[2021-01-05] MEDS ORDERED: MAGNESIUM SULFATE 1 GM/2 ML VIAL IVP ONE (03:30)
[2021-01-05] MEDS ORDERED: POTASSIUM CHLORIDE 20 MEQ TAB.PRT.SR PO ONE (03:30)
--- NOTE | 2021-01-05 03:51 | NUR ---
Dr. Jay bedside for pt re-eval and update
[2021-01-05] MEDS ORDERED: ONDANSETRON HCL 4 MG/2 ML VIAL IVP ONE (04:00)
[2021-01-05] MEDS ORDERED: fentaNYL CITRATE/PF 100 MCG/2 ML AMP IVP ONE (04:00)
--- NOTE | 2021-01-05 04:01 | NUR ---
Mag and Kcl replacements well tolerated
--- NOTE | 2021-01-05 05:03 | NUR ---
VSS no s/s of acute distress, IV pain and nausea medications well tolerated
[2021-01-05] MEDS ORDERED: fentaNYL CITRATE/PF 100 MCG/2 ML AMP ONE (05:05)
[2021-01-05] MEDS ORDERED: MAGN400T29 PO (05:46)
[2021-01-05] MEDS ORDERED: PROC5TAB12 PO (05:46)
[2021-01-05] MEDS ORDERED: POTA20TA83 PO (05:46)
[2021-01-05] MEDS ORDERED: LOPE2CAP PO (05:46)
--- NOTE | 2021-01-05 07:00 | NUR ---
Assumed care of patient, report received from LYUDMILA Partida. Pt currently resting in bed, no acute distress noted.
--- NOTE | 2021-01-05 07:40 | NUR ---
Patient given written and verbal discharge instructions and verbalizes understanding. ER MD discussed with patient the results and treatment provided. Patient in stable condition. ID arm band removed. No prescriptions given. Patient educated on pain management and to follow up with PMD. Pain Scale 0. Opportunity for questions provided and answered. Medication side effect fact sheet provided.
[2021-01-05 09:07] VITALS: BP_SYST 143
== END 2021-01-05 07:40 | disposition home or self-care (01) ==
LOC: SED 23:27
DX: E86.0 Dehydration (principal); E87.6 Hypokalemia; R19.7 Diarrhea, unspecified; R07.89 Other chest pain; I49.3 Ventricular premature depolarization; I10 Essential (primary) hypertension; I48.91 Unspecified atrial fibrillation; Z79.899 Other long term (current) drug therapy
CPT/HCPCS: 36415; 71045; 80053; 80307; 81003; 83735; 84484; 85025; 93005; 96361; 96374; 96375; 99285; J2405; J3010; J3475; J7030

== ENCOUNTER 2021-02-23 23:23 | Emergency (ER) | payer OTHER ==
[~2021-02-23] VITALS: Ht 167.6 cm; Wt 81.6 kg
[~2021-02-23 23:23] MED LIST changes: +LOPE2CAP PO; +MAGN400T29 PO; +POTA20TA83 PO; +PROC5TAB12 PO
[2021-02-23 23:35] VITALS: BP_SYST 161
[2021-02-24] MEDS ORDERED: NACL 0.9% 1,000 ML IV ONE (00:15)
[2021-02-24] MEDS ORDERED: MORPHINE 4 MG INJ. 4 MG/ML VIAL IVP ONE (00:15)
[2021-02-24] MEDS ORDERED: ONDANSETRON HCL 4 MG/2 ML VIAL IVP ONE (00:15)
[2021-02-24 01:12] LABS: ANION GAP 9 (5-15); CHLORIDE 96 mmol/L (98-107); CREATININE 1.21 mg/dL (0.55-1.30); GLUCOSE 89 mg/dL (70-99); POTASSIUM 3.6 mmol/L (3.5-5.1); SODIUM SERUM 135 mmol/L (136-145); UREA NITROGEN, BLOOD 29 mg/dL (8-21)
[2021-02-24 01:16] LABS: GFR AFRICAN AMERICAN 78 mL/min (>90)
[2021-02-24 01:19] LABS: BASOPHILS % (AUTO) 0.2 % (0.0-2.0); EOSINOPHILS # (AUTO) 0.1 K/uL (0.0-0.4); EOSINOPHILS % (AUTO) 0.4 % (0.0-4.0); HEMATOCRIT 45.4 % (36-54); HEMOGLOBIN 15.5 g/dL (14.0-18.0); LYMPHOCYTES # (AUTO) 2.8 K/uL (1.0-5.5); LYMPHOCYTES % (AUTO) 16.5 % (20.5-51.5); MEAN CORPUSCULAR HEMOGLOBIN 32 pg (27-31); MEAN CORPUSCULAR HGB CONC 34 % (32-36); MEAN CORPUSCULAR VOLUME 94 fL (79.0-98.0); MONOCYTES # (AUTO) 1.4 K/uL (0.0-1.0); MONOCYTES % (AUTO) 8.3 % (1.7-9.3); NEUTROPHILS # (AUTO) 12.7 K/uL (1.8-7.7); NEUTROPHILS % (AUTO) 74.6 % (40.0-70.0); PLATELET COUNT (AUTO) 138 K/uL (130-430); RED BLOOD CELL COUNT(AUTO) 4.85 MIL/uL (4.2-6.2); RED CELL DISTRIBUTION WIDTH 13.8 % (9.0-15.0); WHITE BLOOD COUNT (AUTO) 17.1 K/uL (4.8-10.8)
[2021-02-24 01:20] LABS: ALANINE AMINOTRANSFERASE 39 U/L (12-78); ALBUMIN 3.9 g/dL (3.4-4.8); ASPARTATE AMINOTRANSFERASE 35 U/L (10-37); LIPASE 436 U/L (73-393); TOTAL BILIRUBIN 1.8 mg/dL (0.0-1.0)
[2021-02-24] MEDS ORDERED: MORPHINE SULFATE 10 MG/ML VIAL ONE (02:27)
[2021-02-24] MEDS ORDERED: ONDANSETRON 4 MG ODT TAB ONE (02:28)
[2021-02-24] MEDS ORDERED: MORPHINE SULFATE 10 MG/ML VIAL IVP ONE (02:30)
[2021-02-24] MEDS ORDERED: ONDANSETRON 4 MG ODT TAB PO ONE ×2 (02:30→05:15)
[2021-02-24] MEDS ORDERED: MORPHINE 4 MG INJ. 4 MG/ML VIAL IM ONE (04:15)
[2021-02-24] MEDS ORDERED: MAG HYDROX/AL HYDROX/SIMETH 30 ML, DICYCLOMINE HCL 20 MG, LIDOCAINE VISCOUS 2% 15ML (PO... PO ONE ×3 (04:15)
[2021-02-24] MEDS ORDERED: ONDA-8 TL (05:09)
[2021-02-24] MEDS ORDERED: BENZ1LOZ PO (05:09)
[2021-02-24 05:20] VITALS: BP_SYST 119
== END 2021-02-24 05:20 | disposition home or self-care (01) ==
LOC: SED 23:23
DX: R10.11 Right upper quadrant pain (principal); R10.12 Left upper quadrant pain; R10.13 Epigastric pain; R11.2 Nausea with vomiting, unspecified; R74.8 Abnormal levels of other serum enzymes; F10.10 Alcohol abuse, uncomplicated; R13.10 Dysphagia, unspecified; I10 Essential (primary) hypertension; I48.91 Unspecified atrial fibrillation; Z79.899 Other long term (current) drug therapy
CPT/HCPCS: 36415; 71045; 74176; 76376; 80053; 83690; 84484; 85025; 93005; 96372; 99285; J2001; J2270 ×2; J2405; Q0162

== ENCOUNTER 2021-06-20 23:16 | Emergency (ER) | payer OTHER ==
[~2021-06-20] VITALS: Ht 167.6 cm; Wt 83.9 kg
[~2021-06-20 23:16] MED LIST changes: +BENZ1LOZ PO; +POTA-197 PO; -POTA20TA83 PO
[2021-06-20 23:25] VITALS: BP_SYST 142
--- NOTE | 2021-06-20 23:34 | NUR ---
Placed in room 1 . Placed on manager cardiac cath, blood pressure machine and pulse oximeter. To gown for exam. Side rails up. Report given to MARIS COREAS(REG).
--- NOTE | 2021-06-20 23:42 | NUR ---
ER at bedside examining patient.
[2021-06-21] MEDS ORDERED: ONDANSETRON HCL 4 MG/2 ML VIAL IVP ONE
[2021-06-21] MEDS ORDERED: ASPIRIN 81 MG TAB.CHEW PO ONE
[2021-06-21] MEDS ORDERED: NACL 0.9% 1,000 ML IV ONE
--- NOTE | 2021-06-21 00:15 | NUR ---
20G PERIPHERAL IV STARTED IN LT AC. BLOOD DRAWN AND SENT TO LAB. MEDICATIONS GIVEN PER ORDER.
[2021-06-21 01:22] LABS: BASOPHILS % (AUTO) 0.3 % (0.0-2.0); EOSINOPHILS # (AUTO) 0.1 K/uL (0.0-0.4); EOSINOPHILS % (AUTO) 0.6 % (0.0-4.0); HEMATOCRIT 43.6 % (36-54); HEMOGLOBIN 14.9 g/dL (14.0-18.0); LYMPHOCYTES # (AUTO) 1.5 K/uL (1.0-5.5); LYMPHOCYTES % (AUTO) 11.7 % (20.5-51.5); MEAN CORPUSCULAR HEMOGLOBIN 32 pg (27-31); MEAN CORPUSCULAR HGB CONC 34 % (32-36); MEAN CORPUSCULAR VOLUME 93 fL (79.0-98.0); MONOCYTES % (AUTO) 7.5 % (1.7-9.3); NEUTROPHILS # (AUTO) 10.6 K/uL (1.8-7.7); NEUTROPHILS % (AUTO) 79.9 % (40.0-70.0); PLATELET COUNT (AUTO) 262 K/uL (130-430); RED BLOOD CELL COUNT(AUTO) 4.71 MIL/uL (4.2-6.2); RED CELL DISTRIBUTION WIDTH 14.6 % (9.0-15.0); WHITE BLOOD COUNT (AUTO) 13.2 K/uL (4.8-10.8)
[2021-06-21 01:25] LABS: CALCIUM 8.8 mg/dL (8.4-11.0); CREATININE 0.84 mg/dL (0.55-1.30); POTASSIUM 3.3 mmol/L (3.5-5.1)
[2021-06-21 01:39] LABS: ALBUMIN 3.6 g/dL (3.4-4.8); THYROID STIMULATING HORMONE 1.73 uIu/mL (0.36-3.74); TOTAL BILIRUBIN 0.8 mg/dL (0.0-1.0)
--- NOTE | 2021-06-21 03:10 | NUR ---
LAB AT BEDSIDE DOING BLOOD DRAW.
[2021-06-21] MEDS ORDERED: ONDA-8 TL (03:44)
[2021-06-21 04:04] VITALS: BP_SYST 158
--- NOTE | 2021-06-21 04:05 | NUR ---
Patient given written and verbal discharge instructions and verbalizes understanding. ER MD discussed with patient the results and treatment provided. Patient in stable condition. ID arm band removed. IV catheter removed intact and dressing applied, no active bleeding. Rx of ZOFRAN given. Patient educated on pain management and to follow up with PMD. Opportunity for questions provided and answered.
== END 2021-06-21 04:04 | disposition home or self-care (01) ==
LOC: SED 23:16
DX: R00.2 Palpitations (principal); R11.2 Nausea with vomiting, unspecified; I10 Essential (primary) hypertension; I48.91 Unspecified atrial fibrillation; Z79.899 Other long term (current) drug therapy
CPT/HCPCS: 36415; 71045; 80053; 83880; 84443; 84484; 85025; 93005; 96374; 99285; J2405

== ENCOUNTER 2021-07-18 21:21 | Emergency (ER) | payer OTHER ==
[~2021-07-18] VITALS: Ht 167.6 cm; Wt 81.6 kg
[~2021-07-18 21:21] MED LIST changes: +METR-154 PO
[2021-07-18 22:04] VITALS: BP_SYST 97
[2021-07-19 00:25] LABS: BASOPHILS % (AUTO) 0.2 % (0.0-2.0); EOSINOPHILS # (AUTO) 0.1 K/uL (0.0-0.4); EOSINOPHILS % (AUTO) 1.8 % (0.0-4.0); HEMATOCRIT 46.1 % (36-54); HEMOGLOBIN 15.7 g/dL (14.0-18.0); LYMPHOCYTES # (AUTO) 0.6 K/uL (1.0-5.5); LYMPHOCYTES % (AUTO) 7.4 % (20.5-51.5); MEAN CORPUSCULAR HEMOGLOBIN 32 pg (27-31); MEAN CORPUSCULAR HGB CONC 34 % (32-36); MEAN CORPUSCULAR VOLUME 94 fL (79.0-98.0); MONOCYTES # (AUTO) 1.6 K/uL (0.0-1.0); MONOCYTES % (AUTO) 20.1 % (1.7-9.3); NEUTROPHILS # (AUTO) 5.6 K/uL (1.8-7.7); NEUTROPHILS % (AUTO) 70.5 % (40.0-70.0); PLATELET COUNT (AUTO) 146 K/uL (130-430)
[2021-07-19] MEDS ORDERED: NACL 0.9% 1,000 ML IV ONE (00:30)
[2021-07-19] MEDS ORDERED: FAMOTIDINE PF 20 MG/2 ML VIAL IVP ONE (00:30)
[2021-07-19] MEDS ORDERED: KETOROLAC TROMETHAMINE 30 MG VIAL IVP ONE (00:30)
[2021-07-19] MEDS ORDERED: ONDANSETRON HCL 4 MG/2 ML VIAL IVP ONE (00:30)
[2021-07-19 00:37] LABS: CALCIUM 9.3 mg/dL (8.4-11.0); CREATININE 1.21 mg/dL (0.55-1.30); POTASSIUM 4.1 mmol/L (3.5-5.1)
[2021-07-19 00:52] LABS: TOTAL BILIRUBIN 0.6 mg/dL (0.0-1.0)
[2021-07-19] MEDS ORDERED: BISM-146 PO (02:06)
[2021-07-19] MEDS ORDERED: BISMUTH SUBSALICYLATE 240 ML BOTTLE PO ONE (02:15)
[2021-07-19] MEDS ORDERED: BISMUTH SUBSALICYLATE 240 ML BOTTLE ONE (03:24)
[2021-07-19 05:25] VITALS: BP_SYST 142
== END 2021-07-19 05:20 | disposition home or self-care (01) ==
LOC: SED 21:21
DX: R10.84 Generalized abdominal pain (principal); R19.7 Diarrhea, unspecified; I10 Essential (primary) hypertension; I48.91 Unspecified atrial fibrillation; Z79.899 Other long term (current) drug therapy
CPT/HCPCS: 36415; 80053; 83690; 85025; 96361; 96374; 96375; 99284; J1885; J2405; J3490; J7030

== ENCOUNTER 2021-11-26 01:20 | Inpatient (IN) | payer OTHER ==
[2021-11-26] VITALS (19 sets, daily range): BP systolic 95–133
[~2021-11-26] VITALS: Ht 165.1 cm; Wt 83.5 kg
[~2021-11-26 01:20] MED LIST changes: +BISM-146 PO
[2021-11-26 02:18] LABS: BASOPHILS # (AUTO) 0.1 K/uL (0.0-0.2); BASOPHILS % (AUTO) 0.7 % (0.0-2.0); EOSINOPHILS # (AUTO) 0.1 K/uL (0.0-0.4); EOSINOPHILS % (AUTO) 0.5 % (0.0-4.0); HEMATOCRIT 45.4 % (36-54); HEMOGLOBIN 15.7 g/dL (14.0-18.0); LYMPHOCYTES # (AUTO) 3.4 K/uL (1.0-5.5); LYMPHOCYTES % (AUTO) 17.1 % (20.5-51.5); MEAN CORPUSCULAR HEMOGLOBIN 31 pg (27-31); MEAN CORPUSCULAR HGB CONC 35 % (32-36); MEAN CORPUSCULAR VOLUME 91 fL (79.0-98.0); MONOCYTES # (AUTO) 1.8 K/uL (0.0-1.0); NEUTROPHILS # (AUTO) 14.5 K/uL (1.8-7.7); NEUTROPHILS % (AUTO) 72.7 % (40.0-70.0); PLATELET COUNT (AUTO) 314 K/uL (130-430); RED CELL DISTRIBUTION WIDTH 13.8 % (9.0-15.0)
[2021-11-26 02:24] LABS: ANION GAP 21 (5-15); CALCIUM 8.7 mg/dL (8.4-11.0); CHLORIDE 101 mmol/L (98-107); CREATININE 1.15 mg/dL (0.55-1.30); GLUCOSE 98 mg/dL (70-99); SODIUM SERUM 140 mmol/L (136-145); UREA NITROGEN, BLOOD 14 mg/dL (8-21)
[2021-11-26 02:28] LABS: PROTHROMBIN TIME 10.4 SECS (9.5-12.5)
[2021-11-26 02:35] LABS: ALANINE AMINOTRANSFERASE 27 U/L (12-78); ALBUMIN 3.9 g/dL (3.4-4.8); ASPARTATE AMINOTRANSFERASE 31 U/L (10-37); TOTAL BILIRUBIN 0.6 mg/dL (0.0-1.0)
[2021-11-26 02:41] LABS: GFR AFRICAN AMERICAN 83 mL/min (>90)
[2021-11-26] MEDS ORDERED: PIPERACILLIN/TAZO 3.375 GM in NS 50 ML IV ONE (03:15)
[2021-11-26] MEDS ORDERED: VANCOMYCIN HCL 1,000 MG in NS 250 ML IV ONE (03:15)
[2021-11-26] MEDS ORDERED: NACL 0.9% 2,500 ML IV ONE (03:15)
[2021-11-26] MEDS ORDERED: dilTIAZem HCL IVP 5 MG/ML VIAL IVP ONE ×2 (03:30→06:00)
[2021-11-26] MEDS ORDERED: HYDROcodone/ACETAMIN 10-325 MG TAB PO ONE (04:15)
[2021-11-26] MEDS ORDERED: LORazepam 2 MG/ML VIAL IVP ONE ×4 (05:15→06:00)
[2021-11-26] MEDS ORDERED: chlordiazePOXIDE HCL 25 MG CAPSULE PO ONE (05:15)
[2021-11-26] MEDS ORDERED: PIPERACILLIN/TAZOBACTAM 3.375 GM/VIAL (ZOSYN) IV ONE (05:16)
[2021-11-26] MEDS ORDERED: NACL 0.9% 1,000 ML IV ONE (07:15)
[2021-11-26] MEDS: PIPERACILLIN/TAZO 3.375 GM in NS 50 ML IV SCH ×3 (12:03→23:41)
[2021-11-26] MEDS ORDERED: ENOXAPARIN SODIUM 40 MG/0.4 ML SYRINGE SUBCUT ONE (14:00)
[2021-11-26] MEDS ORDERED: LOPERAMIDE HCL 2 MG CAPSULE PO PRN (14:00)
[2021-11-26] MEDS ORDERED: METOPROLOL TARTRATE 50 MG TABLET ONE (14:18)
[2021-11-26] MEDS: METOPROLOL TARTRATE 50 MG TABLET PO SCH ×2 (14:40→20:29)
[2021-11-26 15:50] LABS: INR 1.1 (0.80-1.20); PROTHROMBIN TIME 10.8 SECS (9.5-12.5)
[2021-11-26] MEDS: busPIRone HCL 5 MG TABLET PO SCH ×2 (16:46→20:26)
[2021-11-26] MEDS: HYDROcodone/ACETAMIN 5-325 MG TAB (NORCO/ VICODIN) PO PRN ×2 (16:47→22:20)
[2021-11-26] MEDS: GABAPENTIN 300 MG CAPSULE PO SCH ×2 (16:47→20:25)
[2021-11-26] MEDS: methocarbamoL 500 MG TABLET PO SCH ×2 (16:56→20:27)
[2021-11-26] MEDS: TOPIRAMATE 25 MG TABLET(TOPAMAX) PO SCH (20:25)
[2021-11-26] MEDS: APIXABAN 2.5 MG TABLET PO SCH (20:31)
[2021-11-26] MEDS ORDERED: METOPROLOL TARTRATE 25 MG TABLET PO SCH (21:00)
[2021-11-26] MEDS ORDERED: ENOXAPARIN SODIUM 40 MG/0.4 ML SYRINGE SUBCUT SCH (21:00)
[2021-11-27 00:04] VITALS: BP_SYST 134
[2021-11-27] MEDS: PIPERACILLIN/TAZO 3.375 GM in NS 50 ML IV SCH ×3 (04:54→18:16)
[2021-11-27] MEDS: HYDROcodone/ACETAMIN 5-325 MG TAB (NORCO/ VICODIN) PO PRN ×3 (05:03→20:17)
[2021-11-27 06:47] LABS: BASOPHILS % (AUTO) 0.6 % (0.0-2.0); EOSINOPHILS # (AUTO) 0.2 K/uL (0.0-0.4); EOSINOPHILS % (AUTO) 2.9 % (0.0-4.0); HEMATOCRIT 36.8 % (36-54); HEMOGLOBIN 12.9 g/dL (14.0-18.0); LYMPHOCYTES # (AUTO) 1.9 K/uL (1.0-5.5); LYMPHOCYTES % (AUTO) 25.5 % (20.5-51.5); MEAN CORPUSCULAR HEMOGLOBIN 32 pg (27-31); MEAN CORPUSCULAR HGB CONC 35 % (32-36); MEAN CORPUSCULAR VOLUME 91 fL (79.0-98.0); NEUTROPHILS # (AUTO) 4.4 K/uL (1.8-7.7); PLATELET COUNT (AUTO) 153 K/uL (130-430); RED BLOOD CELL COUNT(AUTO) 4.06 MIL/uL (4.2-6.2); RED CELL DISTRIBUTION WIDTH 13.6 % (9.0-15.0); WHITE BLOOD COUNT (AUTO) 7.6 K/uL (4.8-10.8)
[2021-11-27 08:00] VITALS: BP_SYST 107
[2021-11-27 08:13] LABS: CALCIUM 7.8 mg/dL (8.4-11.0); CREATININE 1.15 mg/dL (0.55-1.30); POTASSIUM 3.5 mmol/L (3.5-5.1)
[2021-11-27] MEDS: GABAPENTIN 300 MG CAPSULE PO SCH ×3 (09:09→20:18)
[2021-11-27] MEDS: MAGNESIUM OXIDE 400 MG TABLET PO SCH (09:09)
[2021-11-27] MEDS: busPIRone HCL 5 MG TABLET PO SCH ×3 (09:09→20:21)
[2021-11-27] MEDS: METOPROLOL TARTRATE 50 MG TABLET PO SCH ×2 (09:10→20:18)
[2021-11-27] MEDS: methocarbamoL 500 MG TABLET PO SCH ×3 (09:10→20:20)
[2021-11-27] MEDS: APIXABAN 2.5 MG TABLET PO SCH ×2 (09:12→20:19)
[2021-11-27 12:00] VITALS: BP_SYST 107
[2021-11-27 16:00] VITALS: BP_SYST 92
[2021-11-27] MEDS ORDERED: NS 500 ML IV ONE (16:30)
[2021-11-27 18:07] VITALS: BP_SYST 101
[2021-11-27 20:00] VITALS: BP_SYST 108
[2021-11-27] MEDS: TOPIRAMATE 25 MG TABLET(TOPAMAX) PO SCH (20:20)
[2021-11-28] VITALS: BP_SYST 104
[2021-11-28] MEDS: PIPERACILLIN/TAZO 3.375 GM in NS 50 ML IV SCH ×4 (00:51→17:56)
[2021-11-28] MEDS: HYDROcodone/ACETAMIN 5-325 MG TAB (NORCO/ VICODIN) PO PRN ×2 (02:27→10:37)
[2021-11-28 08:00] VITALS: BP_SYST 100
[2021-11-28] MEDS: METOPROLOL TARTRATE 50 MG TABLET PO SCH ×2 (08:54→21:00)
[2021-11-28] MEDS: methocarbamoL 500 MG TABLET PO SCH ×3 (08:55→22:20)
[2021-11-28] MEDS: busPIRone HCL 5 MG TABLET PO SCH ×3 (08:55→22:19)
[2021-11-28] MEDS: MAGNESIUM OXIDE 400 MG TABLET PO SCH (08:55)
[2021-11-28] MEDS: GABAPENTIN 300 MG CAPSULE PO SCH ×3 (08:55→22:08)
[2021-11-28] MEDS: APIXABAN 2.5 MG TABLET PO SCH ×2 (08:56→22:17)
[2021-11-28 12:00] VITALS: BP_SYST 107
[2021-11-28 16:00] VITALS: BP_SYST 118
[2021-11-28] MEDS ORDERED: NICOTINE 21 MG/24 HR PATCH.TD24 TD ONE (19:00)
[2021-11-29] MEDS: PIPERACILLIN/TAZO 3.375 GM in NS 50 ML IV SCH ×3 (00:25→11:32)
[2021-11-29] MEDS: TOPIRAMATE 25 MG TABLET(TOPAMAX) PO SCH (00:36)
[2021-11-29 06:38] LABS: BASOPHILS # (AUTO) 0.1 K/uL (0.0-0.2); BASOPHILS % (AUTO) 0.8 % (0.0-2.0); EOSINOPHILS # (AUTO) 0.3 K/uL (0.0-0.4); EOSINOPHILS % (AUTO) 4.1 % (0.0-4.0); HEMATOCRIT 37.3 % (36-54); HEMOGLOBIN 12.7 g/dL (14.0-18.0); LYMPHOCYTES # (AUTO) 2.1 K/uL (1.0-5.5); LYMPHOCYTES % (AUTO) 25.5 % (20.5-51.5); MEAN CORPUSCULAR HEMOGLOBIN 31 pg (27-31); MEAN CORPUSCULAR HGB CONC 34 % (32-36); MEAN CORPUSCULAR VOLUME 91 fL (79.0-98.0); MONOCYTES # (AUTO) 0.6 K/uL (0.0-1.0); MONOCYTES % (AUTO) 6.7 % (1.7-9.3); NEUTROPHILS # (AUTO) 5.2 K/uL (1.8-7.7); NEUTROPHILS % (AUTO) 62.9 % (40.0-70.0); PLATELET COUNT (AUTO) 146 K/uL (130-430); RED BLOOD CELL COUNT(AUTO) 4.12 MIL/uL (4.2-6.2); RED CELL DISTRIBUTION WIDTH 13.6 % (9.0-15.0); WHITE BLOOD COUNT (AUTO) 8.2 K/uL (4.8-10.8)
[2021-11-29 08:00] VITALS: BP_SYST 134
[2021-11-29] MEDS: methocarbamoL 500 MG TABLET PO SCH ×2 (08:11→14:55)
[2021-11-29] MEDS: MAGNESIUM OXIDE 400 MG TABLET PO SCH (08:11)
[2021-11-29] MEDS: METOPROLOL TARTRATE 50 MG TABLET PO SCH (08:12)
[2021-11-29] MEDS: busPIRone HCL 5 MG TABLET PO SCH ×2 (08:12→14:55)
[2021-11-29] MEDS: GABAPENTIN 300 MG CAPSULE PO SCH ×2 (08:14→14:55)
[2021-11-29] MEDS: APIXABAN 2.5 MG TABLET PO SCH (08:14)
[2021-11-29 08:36] LABS: CALCIUM 8.7 mg/dL (8.4-11.0); CREATININE 1.02 mg/dL (0.55-1.30); POTASSIUM 3.8 mmol/L (3.5-5.1)
[2021-11-29] MEDS ORDERED: NICOTINE 21 MG/24 HR PATCH.TD24 TD SCH (09:00)
[2021-11-29 15:18] VITALS: BP_SYST 130
[2021-11-29 15:59] VITALS: BP_SYST 130
== END 2021-11-29 16:40 | disposition home or self-care (01) | DRG 690 ==
LOC: SED 01:20 → SMU 07:07 → SIC 10:07 → STU 22:12
PROVIDERS: ADMIT Family Medicine; ATTEND Family Medicine
PROC: 05HY33Z Insertion of Infusion Device into Upper Vein, Percutaneous Approach (ICD-10-PCS; principal; 2021-11-26)
PROC: B54MZZA Ultrasonography of Right Upper Extremity Veins, Guidance (ICD-10-PCS; 2021-11-26)
DX: N10 Acute pyelonephritis (principal); I48.20 Chronic atrial fibrillation, unspecified; E87.2 Acidosis; D68.59 Other primary thrombophilia; M86.8X8 Other osteomyelitis, other site; N12 Tubulo-interstitial nephritis, not specified as acute or chronic; Z87.891 Personal history of nicotine dependence; J44.9 Chronic obstructive pulmonary disease, unspecified; I48.0 Paroxysmal atrial fibrillation; F10.229 Alcohol dependence with intoxication, unspecified; I11.0 Hypertensive heart disease with heart failure; Z20.822 Contact with and (suspected) exposure to COVID-19; G89.29 Other chronic pain; M54.9 Dorsalgia, unspecified
CPT/HCPCS: 36415; 71045; 73502; 73700-TC; 76376; 76770; 80048; 80053; 83605; 83735; 83880; 84484; 85025; 85610-TC; 85651-TC; 85730-TC; 87040; 87081; 93005; 96365; 96375; 96376; 99291; G0378; G0482; J1650; J2060; J2543; J3490

== ENCOUNTER 2021-12-17 01:32 | Emergency (ER) | payer OTHER ==
[~2021-12-17] VITALS: Ht 177.8 cm; Wt 99.8 kg
[~2021-12-17 01:32] MED LIST changes: -BENZ1LOZ PO; -BISM-146 PO; -METR-154 PO; -ONDA-8 TL; -POTA-197 PO; -PROC5TAB12 PO
[2021-12-17 01:49] VITALS: BP_SYST 129
--- NOTE | 2021-12-17 01:53 | NUR ---
BIB BLS TRANSPORT D/T EATOH, PT DENIES OTHER CPMPLAINS. DENIES PAIN AND DISCOMFORT. PER REPORT RECEIVED PT GIRLFRIEND IN THE ONE WHO CALLED MEDICS. PMh:ALCOHOL ABUSE,AFIB,PSYCH PRESENTED HERE AAOX4, NO SOB NOTED AND NOT IN ANY DISTRESS. PENDING MD DELANEY.
--- NOTE | 2021-12-17 02:20 | NUR ---
ER examining patient in the [facility].
--- NOTE | 2021-12-17 02:30 | NUR ---
Patient to ER bed 3 to gown for evaluation. Side rails up. Report given to Yusra COREAS(reg).
[2021-12-17] MEDS ORDERED: FOLIC ACID 1 MG, THIAMINE HCL 100 MG, MAGNESIUM SULFATE 1 GM, MVI 10 ML in NACL 0.9% 1,... IV ONE (02:45)
[2021-12-17] MEDS ORDERED: MAGNESIUM SULFATE 1 GM/2 ML VIAL ONE (02:59)
[2021-12-17] MEDS ORDERED: THIAMINE HCL 100 MG/ML VIAL ONE (02:59)
[2021-12-17] MEDS ORDERED: FOLIC ACID 5 MG/ML VIAL IV ONE (02:59)
[2021-12-17] MEDS ORDERED: MVI 10 ML VIAL IV ONE (02:59)
[2021-12-17] MEDS ORDERED: NACL 0.9% 1,000 ML IV ONE (03:00)
--- NOTE | 2021-12-17 03:00 | NUR ---
PT IN BED WITH IVF IN PROGRESS
[2021-12-17 03:05] LABS: BASOPHILS # (AUTO) 0.2 K/uL (0.0-0.2); BASOPHILS % (AUTO) 1.4 % (0.0-2.0); EOSINOPHILS # (AUTO) 0.4 K/uL (0.0-0.4); EOSINOPHILS % (AUTO) 3.5 % (0.0-4.0); HEMATOCRIT 47.4 % (36-54); HEMOGLOBIN 16.3 g/dL (14.0-18.0); LYMPHOCYTES # (AUTO) 3.9 K/uL (1.0-5.5); LYMPHOCYTES % (AUTO) 32.4 % (20.5-51.5); MEAN CORPUSCULAR HEMOGLOBIN 31 pg (27-31); MEAN CORPUSCULAR HGB CONC 34 % (32-36); MEAN CORPUSCULAR VOLUME 91 fL (79.0-98.0); MONOCYTES # (AUTO) 0.5 K/uL (0.0-1.0); MONOCYTES % (AUTO) 4.1 % (1.7-9.3); NEUTROPHILS # (AUTO) 7.1 K/uL (1.8-7.7); NEUTROPHILS % (AUTO) 58.6 % (40.0-70.0); PLATELET COUNT (AUTO) 227 K/uL (130-430); RED BLOOD CELL COUNT(AUTO) 5.21 MIL/uL (4.2-6.2); RED CELL DISTRIBUTION WIDTH 14.1 % (9.0-15.0); WHITE BLOOD COUNT (AUTO) 12.1 K/uL (4.8-10.8)
[2021-12-17 03:17] LABS: ANION GAP 13 (5-15); CALCIUM 9.1 mg/dL (8.4-11.0); CHLORIDE 104 mmol/L (98-107); CREATININE 1.26 mg/dL (0.55-1.30); GLUCOSE 76 mg/dL (70-99); POTASSIUM 4.4 mmol/L (3.5-5.1); SODIUM SERUM 145 mmol/L (136-145); UREA NITROGEN, BLOOD 20 mg/dL (8-21)
[2021-12-17 03:25] LABS: ALANINE AMINOTRANSFERASE 29 U/L (12-78); ALBUMIN 4.2 g/dL (3.4-4.8); ALCOHOL, BLOOD 351 mg/dL (<10); ASPARTATE AMINOTRANSFERASE 29 U/L (10-37); TOTAL BILIRUBIN 0.5 mg/dL (0.0-1.0)
[2021-12-17 03:31] LABS: GFR AFRICAN AMERICAN 75 mL/min (>90)
[2021-12-17] MEDS ORDERED: HALOPERIDOL LACTATE 5 MG/ML VIAL IM ONE (05:15)
[2021-12-17] MEDS ORDERED: LORazepam 2 MG/ML VIAL IM ONE (05:15)
--- NOTE | 2021-12-17 06:25 | NUR ---
BANANA BAG AND NS IN PROGRESS
--- NOTE | 2021-12-17 06:30 | NUR ---
PT RESTING IN BED
--- NOTE | 2021-12-17 07:15 | NUR ---
Assumed care of pt and pt is in bed resting with no s/s of distress. Pt is connected to potline monitor and VSS. Pupils PERRLA. Cranial nerves intact. Pt states he has no c/o. Cap refill <3 seconds in all extremities. Respirations even and unlabored. Pt has a 20g IV on left AC no infiltration noted. Bed in lowest position and safety checks in place.
--- NOTE | 2021-12-17 08:25 | NUR ---
Breakfast food tray given to pt. Pt has no c/o. Pt in high fowlers position.
--- NOTE | 2021-12-17 09:03 | NUR ---
Pt A&Ox4. SKin intact. Removed IV and placed gauze dressing bleeding controlled. VSS. Pt able to stand and move extremities but states he has a broken left hip so unable to ambulate. Cap refill <3 seconds in all extremities. Wheelchair provided so pt can able to transfer safely. Pt garza sno c/o. Dr. Arreguin discharging pt so a taxi is going to be orderd for pt by obstetrics technician.
--- NOTE | 2021-12-17 10:42 | NUR ---
ETA for taxi is at 1130. Pt aware and has no c/o. Ice water given to pt.
--- NOTE | 2021-12-17 13:25 | NUR ---
Patient given written and verbal discharge instructions and verbalizes understanding. ER MD discussed with patient the results and treatment provided. Patient in stable condition. ID arm band removed. Patient educated on pain management and to follow up with PMD. Pain Scale 0/10. Opportunity for questions provided and answered. Medication side effect fact sheet provided.
[2021-12-17 13:26] VITALS: BP_SYST 148
--- NOTE | 2021-12-30 06:08 | NUR ---
ADDENDUM Nacl 0.9% 1000ML start time 03:11 end time 04:11
== END 2021-12-17 13:26 | disposition home or self-care (01) ==
LOC: SED 01:32
DX: F10.229 Alcohol dependence with intoxication, unspecified (principal); I10 Essential (primary) hypertension; F17.200 Nicotine dependence, unspecified, uncomplicated; Z79.899 Other long term (current) drug therapy; Y90.6 Blood alcohol level of 120-199 mg/100 ml
CPT/HCPCS: 99285; 96365; 71045; 80053; 85025; 84484; 36415; 96372; G0482; J3490; J1630; J2060; J3475; J3411

== ENCOUNTER 2021-12-24 16:35 | Inpatient (IN) | payer OTHER ==
[~2021-12-24] VITALS: Ht 167.6 cm; Wt 85.0 kg
[2021-12-24 16:42] VITALS: BP_SYST 146
[2021-12-24] MEDS ORDERED: dilTIAZem HCL IVP 5 MG/ML VIAL IVP ONE ×2 (17:00→19:30)
[2021-12-24 17:51] LABS: BASOPHILS # (AUTO) 0.1 K/uL (0.0-0.2); BASOPHILS % (AUTO) 0.3 % (0.0-2.0); EOSINOPHILS # (AUTO) 0.1 K/uL (0.0-0.4); EOSINOPHILS % (AUTO) 0.6 % (0.0-4.0); HEMATOCRIT 52.6 % (36-54); HEMOGLOBIN 17.5 g/dL (14.0-18.0); LYMPHOCYTES # (AUTO) 4.2 K/uL (1.0-5.5); LYMPHOCYTES % (AUTO) 21.1 % (20.5-51.5); MEAN CORPUSCULAR HEMOGLOBIN 31 pg (27-31); MEAN CORPUSCULAR HGB CONC 33 % (32-36); MEAN CORPUSCULAR VOLUME 92 fL (79.0-98.0); MONOCYTES # (AUTO) 1.5 K/uL (0.0-1.0); MONOCYTES % (AUTO) 7.4 % (1.7-9.3); NEUTROPHILS # (AUTO) 13.9 K/uL (1.8-7.7); NEUTROPHILS % (AUTO) 70.6 % (40.0-70.0); PLATELET COUNT (AUTO) 218 K/uL (130-430); RED BLOOD CELL COUNT(AUTO) 5.71 MIL/uL (4.2-6.2); RED CELL DISTRIBUTION WIDTH 14.5 % (9.0-15.0); WHITE BLOOD COUNT (AUTO) 19.7 K/uL (4.8-10.8)
[2021-12-24 18:29] LABS: ANION GAP 24 (5-15); CALCIUM 8.7 mg/dL (8.4-11.0); CHLORIDE 102 mmol/L (98-107); CREATININE 1.15 mg/dL (0.55-1.30); GLUCOSE 86 mg/dL (70-99); POTASSIUM 4.4 mmol/L (3.5-5.1); SODIUM SERUM 143 mmol/L (136-145); UREA NITROGEN, BLOOD 20 mg/dL (8-21)
[2021-12-24 18:30] LABS: GFR AFRICAN AMERICAN 83 mL/min (>90)
[2021-12-24] MEDS ORDERED: DILTIAZEM HCL 60 MG TABLET PO ONE (18:30)
[2021-12-24 18:38] LABS: ALANINE AMINOTRANSFERASE 39 U/L (12-78); ALBUMIN 3.9 g/dL (3.4-4.8); ASPARTATE AMINOTRANSFERASE 39 U/L (10-37); TOTAL BILIRUBIN 0.6 mg/dL (0.0-1.0)
[2021-12-24] MEDS ORDERED: NACL 0.9% 1,000 ML IV ONE (18:45)
[2021-12-24] MEDS ORDERED: cefTRIAXone 1 GM in D5W 50 ML IV ONE (19:30)
[2021-12-24] MEDS ORDERED: cefTRIAXone 1 GM IVPB PREMIX 50 ML IV ONE (19:35)
[2021-12-24] MEDS ORDERED: LORazepam 1 MG TABLET ONE (20:13)
[2021-12-24] MEDS ORDERED: MAGNESIUM SULFATE 1 GM/2 ML VIAL ONE (21:37)
[2021-12-24] MEDS ORDERED: MVI 10 ML VIAL IV ONE (21:37)
[2021-12-24] MEDS ORDERED: THIAMINE HCL 100 MG/ML VIAL ONE (21:37)
[2021-12-24] MEDS ORDERED: FOLIC ACID 5 MG/ML VIAL IV ONE (21:37)
[2021-12-24] MEDS: FOLIC ACID 1 MG, THIAMINE HCL 100 MG, MAGNESIUM SULFATE 1 GM, MVI 10 ML in NACL 0.9% 1,... IV SCH (21:44)
[2021-12-24 22:00] VITALS: BP_SYST 98
[2021-12-24 22:04] LABS: BILIRUBIN,URINE NEGATIVE (NEGATIVE); BLOOD, URINE NEGATIVE (NEGATIVE); CLARITY/URINE CLEAR (CLEAR); GLUCOSE,URINE NEGATIVE (NEGATIVE); KETONES,URINE TRACE (NEGATIVE); LEUKOCYTE ESTERASE ,URINE NEGATIVE (NEGATIVE); NITRITE, URINE NEGATIVE (NEGATIVE); PH,URINE 5.5 (5.0-8.0); PROTEIN URINE 2+ (NEGATIVE); UROBILINOGEN,URINE 0.2 (0.2-1.0)
[2021-12-24 22:16] VITALS: BP_SYST 65
[2021-12-24 22:18] LABS: COLOR,URINE AMBER (YELLOW)
[2021-12-24 22:20] LABS: BACTERIA,URINE FEW /HPF (None Seen); FINE GRANULAR CASTS,URINE 0-10 /LPF (None Seen); HYALINE CASTS, URINE 0-10 /LPF (None Seen); MUCUS,URINE None Seen /LPF (None Seen); RBC,URINE 0-3 /HPF (0-3); WBC,URINE 0-3 /HPF (0-3)
[2021-12-24] MEDS ORDERED: ACETAMINOPHEN 325 MG TABLET PO PRN (22:30)
[2021-12-24] MEDS ORDERED: NALOXONE HCL 0.4 MG/ML AMP (NARCAN) IVP PRN (22:30)
[2021-12-24 23:00] VITALS: BP_SYST 136
[2021-12-24] MEDS ORDERED: busPIRone HCL 5 MG TABLET ONE (23:07)
[2021-12-24] MEDS ORDERED: chlordiazePOXIDE HCL 25 MG CAPSULE ONE (23:08)
[2021-12-24] MEDS ORDERED: GABAPENTIN 300 MG CAPSULE ONE (23:09)
[2021-12-24] MEDS: ENOXAPARIN SODIUM 40 MG/0.4 ML SYRINGE SUBCUT SCH (23:09)
[2021-12-24] MEDS ORDERED: ENOXAPARIN SODIUM 40 MG/0.4 ML SYRINGE ONE (23:09)
[2021-12-24] MEDS ORDERED: HYDROcodone/ACETAMIN 5-325 MG TAB (NORCO/ VICODIN) ONE (23:10)
[2021-12-24] MEDS: HYDROcodone/ACETAMIN 5-325 MG TAB (NORCO/ VICODIN) PO PRN (23:10)
[2021-12-24] MEDS: chlordiazePOXIDE HCL 25 MG CAPSULE PO SCH (23:10)
[2021-12-24] MEDS: GABAPENTIN 300 MG CAPSULE PO SCH (23:11)
[2021-12-24] MEDS: busPIRone HCL 5 MG TABLET PO SCH (23:11)
[2021-12-25] VITALS (28 sets, daily range): BP systolic 109–136
[2021-12-25] MEDS ORDERED: PIPERACILLIN/TAZOBACTAM 3.375 GM/VIAL (ZOSYN) IV ONE (00:04)
[2021-12-25] MEDS: PIPERACILLIN/TAZO 3.375/DEX-IS 50 ML IV SCH ×4 (00:33→17:32)
[2021-12-25] MEDS: LORazepam 1 MG TABLET PO PRN ×2 (01:01→05:12)
[2021-12-25] MEDS: HYDROcodone/ACETAMIN 5-325 MG TAB (NORCO/ VICODIN) PO PRN ×2 (06:10→21:10)
[2021-12-25] MEDS: FOLIC ACID 1 MG, THIAMINE HCL 100 MG, MAGNESIUM SULFATE 1 GM, MVI 10 ML in NACL 0.9% 1,... IV SCH (06:18)
[2021-12-25 06:24] LABS: CALCIUM 7.6 mg/dL (8.4-11.0); CREATININE 1.42 mg/dL (0.55-1.30); POTASSIUM 3.9 mmol/L (3.5-5.1)
[2021-12-25 06:29] LABS: BASOPHILS # (AUTO) 0.1 K/uL (0.0-0.2); BASOPHILS % (AUTO) 0.6 % (0.0-2.0); EOSINOPHILS # (AUTO) 0.1 K/uL (0.0-0.4); HEMATOCRIT 37.7 % (36-54); HEMOGLOBIN 13.4 g/dL (14.0-18.0); MEAN CORPUSCULAR HEMOGLOBIN 32 pg (27-31); MEAN CORPUSCULAR HGB CONC 36 % (32-36); MEAN CORPUSCULAR VOLUME 90 fL (79.0-98.0); MONOCYTES # (AUTO) 1.9 K/uL (0.0-1.0); NEUTROPHILS # (AUTO) 8.5 K/uL (1.8-7.7); NEUTROPHILS % (AUTO) 62.4 % (40.0-70.0); PLATELET COUNT (AUTO) 152 K/uL (130-430); RED CELL DISTRIBUTION WIDTH 14.2 % (9.0-15.0); WHITE BLOOD COUNT (AUTO) 13.6 K/uL (4.8-10.8)
[2021-12-25] MEDS: GABAPENTIN 300 MG CAPSULE PO SCH ×3 (08:26→20:58)
[2021-12-25] MEDS: busPIRone HCL 5 MG TABLET PO SCH ×3 (08:26→20:56)
[2021-12-25] MEDS: chlordiazePOXIDE HCL 25 MG CAPSULE PO SCH ×3 (08:27→20:58)
[2021-12-25] MEDS ORDERED: AMIODARONE HCL 200 MG TABLET PO ONE (08:30)
[2021-12-25] MEDS ORDERED: THIAMINE HCL 100 MG, MAGNESIUM SULFATE 1 GM in NS 100 ML IV SCH (09:00)
[2021-12-25] MEDS ORDERED: FOLIC ACID 1 MG, MVI 10 ML in NACL 0.9% 1,000 ML IV SCH (09:00)
[2021-12-25] MEDS ORDERED: MVI 10 ML, FOLIC ACID 1 MG in NACL 0.9% 1,000 ML IV SCH (09:00)
[2021-12-25] MEDS: AMIODARONE HCL 200 MG TABLET PO SCH ×2 (14:39→20:57)
[2021-12-25] MEDS: KCL 20 mEq in NS 1000 mL 1,000 ML IV SCH (20:56)
[2021-12-25] MEDS: ENOXAPARIN SODIUM 40 MG/0.4 ML SYRINGE SUBCUT SCH (20:58)
[2021-12-26] VITALS (14 sets, daily range): BP systolic 105–132
[2021-12-26] MEDS: PIPERACILLIN/TAZO 3.375/DEX-IS 50 ML IV SCH ×2 (00:24→06:10)
[2021-12-26] MEDS: HYDROcodone/ACETAMIN 5-325 MG TAB (NORCO/ VICODIN) PO PRN ×3 (04:07→16:57)
[2021-12-26] MEDS: AMIODARONE HCL 200 MG TABLET PO SCH (06:10)
[2021-12-26 06:27] LABS: BASOPHILS % (AUTO) 0.3 % (0.0-2.0); EOSINOPHILS # (AUTO) 0.2 K/uL (0.0-0.4); EOSINOPHILS % (AUTO) 2.7 % (0.0-4.0); HEMATOCRIT 31.8 % (36-54); HEMOGLOBIN 11.3 g/dL (14.0-18.0); LYMPHOCYTES # (AUTO) 1.3 K/uL (1.0-5.5); MEAN CORPUSCULAR HEMOGLOBIN 32 pg (27-31); MEAN CORPUSCULAR HGB CONC 36 % (32-36); MEAN CORPUSCULAR VOLUME 89 fL (79.0-98.0); MONOCYTES # (AUTO) 0.9 K/uL (0.0-1.0); NEUTROPHILS # (AUTO) 3.5 K/uL (1.8-7.7); PLATELET COUNT (AUTO) 94 K/uL (130-430); RED BLOOD CELL COUNT(AUTO) 3.56 MIL/uL (4.2-6.2); RED CELL DISTRIBUTION WIDTH 13.7 % (9.0-15.0); WHITE BLOOD COUNT (AUTO) 5.8 K/uL (4.8-10.8)
[2021-12-26 06:47] LABS: ALBUMIN 2.4 g/dL (3.4-4.8); CALCIUM 7.9 mg/dL (8.4-11.0); CREATININE 1.05 mg/dL (0.55-1.30); POTASSIUM 3.3 mmol/L (3.5-5.1); TOTAL BILIRUBIN 0.8 mg/dL (0.0-1.0)
[2021-12-26] MEDS: KCL 20 mEq in NS 1000 mL 1,000 ML IV SCH (07:28)
[2021-12-26] MEDS: busPIRone HCL 5 MG TABLET PO SCH ×3 (08:47→20:58)
[2021-12-26] MEDS: METOPROLOL TARTRATE 25 MG TABLET PO SCH ×2 (08:48→21:01)
[2021-12-26] MEDS: GABAPENTIN 300 MG CAPSULE PO SCH ×3 (08:48→20:59)
[2021-12-26] MEDS: THIAMINE HCL 100 MG TABLET PO SCH (08:49)
[2021-12-26] MEDS: chlordiazePOXIDE HCL 25 MG CAPSULE PO SCH ×3 (08:49→20:59)
[2021-12-26] MEDS ORDERED: POTASSIUM CHLORIDE 20 MEQ/PKT PACKET PO ONE (09:30)
[2021-12-26] MEDS: FOLIC ACID 1 MG TABLET PO SCH (09:56)
[2021-12-26] MEDS ORDERED: MUPIROCIN 1 GM OIN.PF.APP NS SCH (11:15)
[2021-12-26] MEDS ORDERED: MUPIROCIN 2% TOPICAL OINTMENT 22 GM NS ONE (12:00)
[2021-12-26] MEDS ORDERED: PHENAZOPYRIDINE HCL 100 MG TABLET PO ONE (13:30)
[2021-12-26] MEDS ORDERED: POTASSIUM CHLORIDE 20 MEQ TAB.PRT.SR PO ONE (15:00)
[2021-12-26] MEDS: PHENAZOPYRIDINE HCL 100 MG TABLET PO SCH (17:51)
[2021-12-26] MEDS: MUPIROCIN 2% TOPICAL OINTMENT 22 GM NS SCH (20:58)
[2021-12-26] MEDS ORDERED: AMIODARONE HCL 200 MG TABLET PO SCH (21:00)
[2021-12-26] MEDS: ENOXAPARIN SODIUM 40 MG/0.4 ML SYRINGE SUBCUT SCH (21:03)
[2021-12-27] VITALS: BP_SYST 92
[2021-12-27 00:30] VITALS: BP_SYST 123
[2021-12-27] MEDS: LORazepam 1 MG TABLET PO PRN ×2 (01:25→13:44)
[2021-12-27 08:00] VITALS: BP_SYST 134
[2021-12-27] MEDS: FOLIC ACID 1 MG TABLET PO SCH (09:50)
[2021-12-27] MEDS: PHENAZOPYRIDINE HCL 100 MG TABLET PO SCH ×2 (09:50→12:01)
[2021-12-27] MEDS: GABAPENTIN 300 MG CAPSULE PO SCH (09:50)
[2021-12-27] MEDS: chlordiazePOXIDE HCL 25 MG CAPSULE PO SCH (09:50)
[2021-12-27] MEDS: busPIRone HCL 5 MG TABLET PO SCH (09:51)
[2021-12-27] MEDS: THIAMINE HCL 100 MG TABLET PO SCH (09:51)
[2021-12-27] MEDS: MUPIROCIN 2% TOPICAL OINTMENT 22 GM NS SCH (09:52)
[2021-12-27 11:50] VITALS: BP_SYST 123
[2021-12-27] MEDS: HYDROcodone/ACETAMIN 5-325 MG TAB (NORCO/ VICODIN) PO PRN (12:00)
[2021-12-27 14:41] VITALS: BP_SYST 128
[2021-12-27] MEDS ORDERED: METOPROLOL TARTRATE 25 MG TABLET PO SCH (21:00)
== END 2021-12-27 15:15 | disposition home or self-care (01) | DRG 309 ==
LOC: SED 16:35 → SIC 20:25 → STU 12-26 11:00
PROVIDERS: ADMIT Family Medicine; ATTEND Family Medicine
DX: I48.0 Paroxysmal atrial fibrillation (principal); E87.2 Acidosis; I48.92 Unspecified atrial flutter; F41.9 Anxiety disorder, unspecified; G89.29 Other chronic pain; M16.12 Unilateral primary osteoarthritis, left hip; F10.229 Alcohol dependence with intoxication, unspecified; Y90.9 Presence of alcohol in blood, level not specified; Z20.822 Contact with and (suspected) exposure to COVID-19; I25.10 Atherosclerotic heart disease of native coronary artery without angina pectoris; D72.829 Elevated white blood cell count, unspecified; J44.9 Chronic obstructive pulmonary disease, unspecified; Z79.899 Other long term (current) drug therapy; Z87.891 Personal history of nicotine dependence
CPT/HCPCS: 36415; 71045; 80048; 80053; 81000; 83605; 83735; 83880; 84484; 85025; 87040; 87081; 93005; 96365; 96375; 96376; 99291; G0378; J0696; J1650; J2543; J3411; J3475; J3480; J3490; J7030

== ENCOUNTER 2022-03-07 01:08 | Inpatient (IN) | payer OTHER ==
[~2022-03-07] VITALS: Ht 167.6 cm; Wt 84.8 kg
[~2022-03-07 01:08] MED LIST changes: +APIX5TAB4 PO; +DULO60CA42 PO; +LORA-259 PO; +NICO-736 TP; +OMEP20CA15 PO; +QUET150T20 PO; +THIA50TA10 PO
[2022-03-07 01:10] VITALS: BP_SYST 97
--- NOTE | 2022-03-07 01:15 | NUR ---
Placed in room 5 . Placed on engine monitor, blood pressure machine and pulse oximeter. To gown for exam. Side rails up. Report given to Ivon COREAS.
--- NOTE | 2022-03-07 01:18 | NUR ---
1mg OF NARCAN ADMINISTERED PER MD VERBAL ORDER.
[2022-03-07] MEDS ORDERED: NALOXONE HCL 2 MG/2 ML SYR ONE (01:20)
--- NOTE | 2022-03-07 01:20 | NUR ---
SELENA Gutierrez at bedside examining patient.
[2022-03-07] MEDS ORDERED: NALOXONE HCL 2 MG/2 ML SYR IVP ONE (01:30)
--- NOTE | 2022-03-07 01:30 | NUR ---
Called Poison Control at [phone] and spoke with Delmy. Per recommendations: Monitor for prolonged QTC or Widened QRS. Repeat ekg in 4-6 hours. Closely monitor for mental status. Possible seizure risk. Repeat CBC and COags in [address] jones notified. Will continue to monitor patient.
--- NOTE | 2022-03-07 01:33 | NUR ---
# 20 gauge angiocath placed to . Use of asceptic technique. Opsite placed over site. Blood return noted. Blood for lab drawn from site. Flushed with 10 cc of normal saline. No evidence of infiltration noted. Patient tolerated well.
--- NOTE | 2022-03-07 01:36 | NUR ---
Security at the bedside to wand the pt.
--- NOTE | 2022-03-07 01:37 | NUR ---
SECURITY AT BEDSIDE FOR SAFETY CHECK AND INSPECTION. PT SCANNED WITH WAND.
[2022-03-07 01:43] LABS: BASOPHILS % (AUTO) 0.7 % (0.0-2.0); EOSINOPHILS # (AUTO) 0.3 K/uL (0.0-0.4); EOSINOPHILS % (AUTO) 4.1 % (0.0-4.0); HEMATOCRIT 39.4 % (36-54); HEMOGLOBIN 13.5 g/dL (14.0-18.0); LYMPHOCYTES # (AUTO) 1.7 K/uL (1.0-5.5); LYMPHOCYTES % (AUTO) 25.4 % (20.5-51.5); MEAN CORPUSCULAR HEMOGLOBIN 33 pg (27-31); MEAN CORPUSCULAR HGB CONC 34 % (32-36); MEAN CORPUSCULAR VOLUME 95 fL (79.0-98.0); MONOCYTES # (AUTO) 0.6 K/uL (0.0-1.0); MONOCYTES % (AUTO) 9.2 % (1.7-9.3); NEUTROPHILS % (AUTO) 60.6 % (40.0-70.0); PLATELET COUNT (AUTO) 168 K/uL (130-430); RED BLOOD CELL COUNT(AUTO) 4.16 MIL/uL (4.2-6.2); RED CELL DISTRIBUTION WIDTH 14.4 % (9.0-15.0); WHITE BLOOD COUNT (AUTO) 6.6 K/uL (4.8-10.8)
[2022-03-07 01:56] LABS: CALCIUM 9.1 mg/dL (8.4-11.0); CREATININE 0.87 mg/dL (0.55-1.30)
[2022-03-07 01:59] LABS: PROTHROMBIN TIME 10.4 SECS (9.5-12.5)
--- NOTE | 2022-03-07 02:00 | NUR ---
COVID AND MRSA SWABS COLLECTED AND SENT TO LAB.
--- NOTE | 2022-03-07 02:03 | NUR ---
CSSRS CHECKLIST DONE BUT NOT ABLE TO SAVE IN COMPUTER. ALL ANSWERS "YES"
[2022-03-07 02:07] LABS: ALBUMIN 3.3 g/dL (3.4-4.8); TOTAL BILIRUBIN 0.4 mg/dL (0.0-1.0)
[2022-03-07 02:32] LABS: BILIRUBIN,URINE NEGATIVE (NEGATIVE); BLOOD, URINE NEGATIVE (NEGATIVE); CLARITY/URINE CLEAR (CLEAR); COLOR,URINE YELLOW (YELLOW); GLUCOSE,URINE NEGATIVE (NEGATIVE); KETONES,URINE NEGATIVE (NEGATIVE); LEUKOCYTE ESTERASE ,URINE NEGATIVE (NEGATIVE); NITRITE, URINE NEGATIVE (NEGATIVE); PH,URINE 7.5 (5.0-8.0); PROTEIN URINE NEGATIVE (NEGATIVE)
[2022-03-07 02:38] LABS: BARBITURATE, URINE NEGATIVE (NEG <=200); BENZODIAZEPINE, URINE POSITIVE (NEG <=150); CANNABINOID, URINE NEGATIVE (NEG <=50); COCAINE, URINE NEGATIVE (NEG <=150); METHAMPHETAMINES SCREEN,URINE NEGATIVE (NEG <=500); OPIATE, URINE POSITIVE (NEG <=100); PHENCYCLIDINE SCREEN,URINE NEGATIVE (NEG <=25); UR TRICYCLIC ANTIDEPRESSANTS NEGATIVE (NEG <=300); URINE AMPHETAMINE NEGATIVE (NEG <=500); URINE METHADONE NEGATIVE (NEG <=200); URINE OXYCODONE SCREEN NEGATIVE (NEG <=100); URINE PROPOXYPHENE SCREEN NEGATIVE (NEG <=300)
[2022-03-07] MEDS ORDERED: DIPHENHYDRAMINE INJ 50 MG/ML VIAL IVP ONE (03:45)
[2022-03-07] MEDS ORDERED: LORazepam 2 MG/ML VIAL IVP ONE (03:45)
[2022-03-07] MEDS ORDERED: HALOPERIDOL LACTATE 5 MG/ML VIAL IVP ONE (03:45)
[2022-03-07] MEDS ORDERED: DIPHENHYDRAMINE INJ 50 MG/ML VIAL ONE (03:49)
[2022-03-07] MEDS ORDERED: HALOPERIDOL LACTATE 5 MG/ML VIAL ONE (03:49)
[2022-03-07] MEDS ORDERED: LORazepam 2 MG/ML VIAL ONE (03:50)
[2022-03-07] MEDS ORDERED: NS 500 ML IV ONE (04:30)
--- NOTE | 2022-03-07 06:04 | NUR ---
Admit bed requested Patient will be admitted to care of . Admitted to TELE unit. Diagnosis ALOC,SI Inpatient (Yes or No) YES Observation (Yes or No) NO Orientation concerns or request close to nursing station (Yes or No) YES Covid Status PENDING On vent or bipap NO Isolation requirements NO Needs a sitter NO From Home (Yes or if No enter name of facility) YES Requires Dialysis (Yes or No) NO Med Rec Completed (Yes of No) PENDING
[2022-03-07 06:05] LABS: BASOPHILS # (AUTO) 0.2 K/uL (0.0-0.2); BASOPHILS % (AUTO) 2.8 % (0.0-2.0); EOSINOPHILS # (AUTO) 0.3 K/uL (0.0-0.4); EOSINOPHILS % (AUTO) 4.4 % (0.0-4.0); HEMATOCRIT 38.8 % (36-54); HEMOGLOBIN 13.3 g/dL (14.0-18.0); LYMPHOCYTES # (AUTO) 1.3 K/uL (1.0-5.5); LYMPHOCYTES % (AUTO) 23.5 % (20.5-51.5); MEAN CORPUSCULAR HEMOGLOBIN 33 pg (27-31); MEAN CORPUSCULAR HGB CONC 34 % (32-36); MEAN CORPUSCULAR VOLUME 95 fL (79.0-98.0); MONOCYTES # (AUTO) 0.6 K/uL (0.0-1.0); MONOCYTES % (AUTO) 9.8 % (1.7-9.3); NEUTROPHILS # (AUTO) 3.4 K/uL (1.8-7.7); NEUTROPHILS % (AUTO) 59.5 % (40.0-70.0); PLATELET COUNT (AUTO) 145 K/uL (130-430); RED BLOOD CELL COUNT(AUTO) 4.08 MIL/uL (4.2-6.2); RED CELL DISTRIBUTION WIDTH 14.5 % (9.0-15.0); WHITE BLOOD COUNT (AUTO) 5.7 K/uL (4.8-10.8)
[2022-03-07] MEDS ORDERED: TAMS-11 PO (06:32)
[2022-03-07] MEDS ORDERED: CYCL10TA24 PO (06:32)
[2022-03-07] MEDS ORDERED: BUSP10TA3 PO (06:32)
[2022-03-07 06:34] LABS: PROTHROMBIN TIME 10.2 SECS (9.5-12.5)
[2022-03-07 06:40] LABS: ACETAMINOPHEN 1 ug/mL (1-30)
--- NOTE | 2022-03-07 07:10 | NUR ---
REPORT GIVEN TO LYUDMILA CHAVEZ.
--- NOTE | 2022-03-07 07:19 | NUR ---
PT SLEEPING IN BED COMFORTABLE, VSS. REPORT TAKEN FROM PM NURSE
--- NOTE | 2022-03-07 08:45 | NUR ---
MAGNESIUM MILL OPERATOR ACSW Stephanie received request from Director of Case Management Hilda and ED staff to assist with patient transfer to Inpatient psych facility. Patient currently under 5150 hold ACSW consulted with ED staff who shared patient was assessed by PET team, and placed on 5150 hold. ACSW inquired into medical stability and clearance for transfer to inpatient psych from ED, according to ED physician, patient had admitting orders. ACSW will continue to be available as needed
[2022-03-07 10:37] LABS: ALBUMIN 3.4 g/dL (3.4-4.8); CALCIUM 8.6 mg/dL (8.4-11.0); CREATININE 0.78 mg/dL (0.55-1.30); TOTAL BILIRUBIN 0.3 mg/dL (0.0-1.0)
--- NOTE | 2022-03-07 11:03 | NUR ---
PT IN BED SLEEPING. PT IS EASILY AROUSED. NO OR DISTRESS. PT HAS SITTER ON 1 ON 1 AT BEDSIDE. VSS
--- NOTE | 2022-03-07 11:05 | NUR ---
MD DR RANGEL AT BEDSIDE TALKING TO PT.
[2022-03-07] MEDS ORDERED: ACETAMINOPHEN 325 MG TABLET PO PRN (11:15)
[2022-03-07] MEDS ORDERED: HYDROcodone/ACETAMIN 5-325 MG TAB (NORCO/ VICODIN) PO PRN (11:15)
[2022-03-07] MEDS ORDERED: NALOXONE HCL 0.4 MG/ML AMP (NARCAN) IVP PRN ×2 (11:15)
[2022-03-07] MEDS ORDERED: ONDANSETRON HCL 4 MG/2 ML VIAL IVP PRN (11:15)
--- NOTE | 2022-03-07 12:14 | NUR ---
Pt sleeping at this time,no s/s of distress, will cont to monitor
--- NOTE | 2022-03-07 12:17 | NUR ---
SPOKE TO DR COSTELLO RE- MEDICAL CLEARANCE EVALUATED PATIENT IN EMERGENCY ROOM, SPOKE TO M.D AND SAID PATIENT IS MEDICALLY CLEARED TO BE TRANSFER TO PSYCHE FACILITY. DR COSTELLO ORDERED TELE PSCYHE FOR 51:50 ON HOLD. PER PATTIE SHANK SANDER, PET TEAM CAME ALREADY AND PUT PATIENT ON 51:50 HOLD. SHANK SANDER PATTIE MADE AWARE RE- TO ARRANGE TRANSFER TO PSYCHE FACILITY.
--- NOTE | 2022-03-07 12:49 | NUR ---
SUPERVISOR STITCHING DEPARTMENT [facility] Stephanie responded to a request to assist with patient transfer to inpatient psych for continued treatment. [facility] faxed packets to the following; - Mireya Hickey P: F: - [facility] P: F: Addendum: 03/07/22 at 1433 by Stephanie Chahal MSW [facility] contacted [facility] to obtain update. Erasmo Hickey- Still under review [facility]- Still under review Addendum: 03/07/22 at 1446 by Stephanie Chahal KILN PUSHER [facility] faxed packet for review to [place] P: F: Addendum: 03/07/22 at 1637 by Stephanie Chahal KILN PUSHER [facility] placed ambulance on Will call with [facility] in the event of acceptance for transfer. ACS provided update to assigned COUTIERIER Tameka and placed packet in discharge planning slot
--- NOTE | 2022-03-07 13:49 | NUR ---
Admission Note Received patient from ER with diagnosis of suicidal ideation and ALOC. Initial Plan of Care discussed-patient verbalized understanding. Oriented to room, call light, pain management and safety. Sitter at bedside for 1:1 observation.
--- NOTE | 2022-03-07 13:55 | NUR ---
CONSULTATION PAGED/CALLED Reason for Consultation: [] A FIB Person Who was Notified: [] DR COSTELLO, Y Consulting Physician: [] DR Korey COSTELLO Director Channel Specialty: [] CARDIO Ordering Physician: [] DR Fernando COSTELLO
--- NOTE | 2022-03-07 13:56 | NUR ---
CONSULTATION PAGED/CALLED Reason for Consultation: [] ALOC Person Who was Notified: [] Stephanie DERAS Consulting Physician: [] DR Stephanie JONES Repair Tech Specialty: [] NEURO Ordering Physician: [] DR Fernando COSTELLO
[2022-03-07 14:00] VITALS: BP_SYST 141
[2022-03-07] MEDS ORDERED: NORMAL SALINE 5 ML DISP.SYRIN IVF SCH (14:00)
[2022-03-07 14:01] VITALS: BP_SYST 141
--- NOTE | 2022-03-07 14:01 | NUR ---
Patient will be admitted to [facility]. Admitted to TELE unit. Will go to room 131A. Belongings list completed. Complete and up to date summary report printed. SBAR report to be given at bedside with opportunity for questions.
--- NOTE | 2022-03-07 14:27 | NUR ---
PATIENT SPEAKING TO DR GANN ON IPAD
--- NOTE | 2022-03-07 14:39 | NUR ---
PER DR. AZEEM STOREY TO D/C HOME AFTER HOLD. PATIENT STABLE NO DISTRESS SLEEPY, WILL CONT TO MONITOR PATIENT
--- NOTE | 2022-03-07 15:00 | NUR ---
PATIENT DENIES ANY SUICIDAL IDEATION AT THIS TIME, DENIES ANY PLAN TO HARM HIMSELF OR OTHERS. HE SAID HE TOOK THE PILLS BECAUSE OF TOO MUCH STRESS GOING ON ON HIS PLACE, LIKE WATER LEAKING AND CONSTRUCTIONS ON GOING.
[2022-03-07] MEDS: busPIRone HCL 5 MG TABLET PO SCH ×2 (16:49→22:00)
[2022-03-07] MEDS: GABAPENTIN 300 MG CAPSULE PO SCH ×2 (16:49→22:00)
[2022-03-07] MEDS: methocarbamoL 500 MG TABLET PO SCH ×2 (16:51→21:59)
[2022-03-07] MEDS: NORMAL SALINE 5 ML DISP.SYRIN IVF SCH ×2 (16:55→22:03)
[2022-03-07 17:00] VITALS: BP_SYST 138
--- NOTE | 2022-03-07 17:19 | NUR ---
REPORT GIVEN TO [facility] Spoke to Sultana at [facility] and provided report. Sultana said that they would let us know if they will be accepting the patient shortly.
--- NOTE | 2022-03-07 18:22 | NUR ---
CLOSING NOTE PATIENT REMAINS STABLE NO DISTRESS, RESTING WELL IN BED, NO PAIN, CALL LIGHT IN REACH BED AT LOW POSITION, WILL GIVE PM SHIFT NURSE BEDSIDE SBAR.
[2022-03-07 20:00] VITALS: BP_SYST 96
[2022-03-07 21:37] VITALS: BP_SYST 115
--- NOTE | 2022-03-07 21:37 | NUR ---
ASSUMPTION OF CARE BEDSIDE REPORT RECEIVED AT THIS TIME FROM LYUDMILA PÉREZ DUE TO BED REASSIGNMENTS. AT THIS TIME, PATIENT IS RESTING IN BED, STABLE, NO SIGNS OF RESPIRATORY DISTRESS. HE VERBALIZES NO SUICIDAL IDEALIZATIONS. HE VERBALIZES NO PAIN. PLAN OF CARE FOR THE EVENING IS COMMUNICATED WITH THE PATIENT. MANI RALPH IS A BEDSIDE WHERE SHE WILL REMAIN AT FOR THE SHIFT TO WATCH PATIENT. BED IS LOCKED, ALARMED, AND AT THE LOWEST LEVEL. FALL, SAFETY, AND SUICIDAL PRECAUTIONS WILL BE TAKEN THROUGH THE SHIFT.
--- NOTE | 2022-03-07 21:51 | NUR ---
[facility] SPOKE WITH ANDRES AND THEY INFORMED ME THAT PT WAS DECLINED SAYS DUE TO NOT MEDICALLY APPROPRIATE. INFORMED CHARGE NURSE AND RN
[2022-03-07] MEDS: TAMSULOSIN HCL 0.4 MG CAP PO SCH (21:59)
[2022-03-07] MEDS: QUEtiapine FUMARATE 25 MG TABLET PO SCH (22:00)
[2022-03-07] MEDS: TOPIRAMATE 25 MG TABLET(TOPAMAX) PO SCH (22:00)
[2022-03-07] MEDS: LORazepam 1 MG TABLET PO SCH (22:01)
[2022-03-07] MEDS: APIXABAN 2.5 MG TABLET PO SCH (22:02)
[2022-03-07] MEDS: METOPROLOL TARTRATE 25 MG TABLET PO SCH (22:06)
[2022-03-08] VITALS: BP_SYST 117
[2022-03-08] MEDS: NORMAL SALINE 5 ML DISP.SYRIN IVF SCH ×3 (06:40→21:15)
--- NOTE | 2022-03-08 06:40 | NUR ---
CLOSING NOTE PATIENT VERBALIZED HE IS NO LONGER HAVE ANY SUICIDAL IDEALIZATIONS. HE WAS BEEN SLEEPING WELL THROUGHOUT THE NIGHT. PATIENT VERBALIZED NO PAIN. SITTER HAS REMAINED AT BEDSIDE THROUGHOUT THE NIGHT. AT THIS TIME, HE IS RESTING IN BED, STABLE, NO SIGNS OF RESPIRATORY DISTRESS. BED IS LOCKED, ALARMED, AND AT THE LOWEST LEVEL. FALL, SAFETY, AND SUICIDAL PRECAUTIONS HAVE BEEN IN PLACE THROUGHOUT THE NIGHT. WILL CONTINUE TO MONITOR UNTIL REPORT IS GIVEN AT BEDSIDE TO AM NURSE.
[2022-03-08 07:13] LABS: BASOPHILS % (AUTO) 0.5 % (0.0-2.0); EOSINOPHILS # (AUTO) 0.3 K/uL (0.0-0.4); EOSINOPHILS % (AUTO) 3.7 % (0.0-4.0); HEMATOCRIT 40.5 % (36-54); HEMOGLOBIN 13.9 g/dL (14.0-18.0); LYMPHOCYTES # (AUTO) 2.4 K/uL (1.0-5.5); MEAN CORPUSCULAR HEMOGLOBIN 33 pg (27-31); MEAN CORPUSCULAR HGB CONC 34 % (32-36); MEAN CORPUSCULAR VOLUME 95 fL (79.0-98.0); MONOCYTES # (AUTO) 0.7 K/uL (0.0-1.0); MONOCYTES % (AUTO) 7.9 % (1.7-9.3); NEUTROPHILS # (AUTO) 5.3 K/uL (1.8-7.7); NEUTROPHILS % (AUTO) 60.9 % (40.0-70.0); PLATELET COUNT (AUTO) 160 K/uL (130-430); RED BLOOD CELL COUNT(AUTO) 4.25 MIL/uL (4.2-6.2); RED CELL DISTRIBUTION WIDTH 14.9 % (9.0-15.0); WHITE BLOOD COUNT (AUTO) 8.8 K/uL (4.8-10.8)
[2022-03-08 08:00] VITALS: BP_SYST 114
--- NOTE | 2022-03-08 08:00 | NUR ---
Initial Notes Patient is Aox4. No s.s of distress noted. Patient is eating breakfast. Vital signs obtained, as documented. Breathing is even and nonlabored, on room air. Patient denies pain at this time. Denies SOB. Patient denies wanting to harm himself at this. Denies suicide idealizations. Educated patient on safety, fall, and suicide preventions. Bed locked and at lowest position. Sitter in place.
[2022-03-08 08:12] LABS: ALBUMIN 3.2 g/dL (3.4-4.8); CREATININE 0.97 mg/dL (0.55-1.30); PHOSPHORUS 4.1 mg/dL (2.7-4.5); TOTAL BILIRUBIN 0.5 mg/dL (0.0-1.0)
[2022-03-08] MEDS: methocarbamoL 500 MG TABLET PO SCH ×3 (09:13→21:11)
[2022-03-08] MEDS: busPIRone HCL 5 MG TABLET PO SCH ×3 (09:13→21:15)
[2022-03-08] MEDS: PANTOPRAZOLE SODIUM 40 MG TAB PO SCH (09:14)
[2022-03-08] MEDS: METOPROLOL TARTRATE 25 MG TABLET PO SCH ×2 (09:14→21:23)
[2022-03-08] MEDS: THIAMINE HCL 100 MG TABLET PO SCH (09:15)
[2022-03-08] MEDS: MAGNESIUM OXIDE 400 MG TABLET PO SCH (09:15)
[2022-03-08] MEDS: DULoxetine HCL 30 MG CAPSULE.DR (CYMBALTA) PO SCH (09:15)
[2022-03-08] MEDS: GABAPENTIN 300 MG CAPSULE PO SCH ×3 (09:15→21:14)
[2022-03-08] MEDS: NICOTINE 21 MG/24 HR PATCH.TD24 TD SCH (09:16)
[2022-03-08] MEDS: LORazepam 1 MG TABLET PO SCH ×2 (09:16→21:13)
[2022-03-08] MEDS: APIXABAN 2.5 MG TABLET PO SCH ×2 (09:17→21:08)
--- NOTE | 2022-03-08 10:07 | NUR ---
[employer] [facility] Stephanie contacted Mireya Hickey to obtain update on acceptance. Erasmo Hickey requesting to refax packet. [facility] completed fax of updated clinicals ACSW will continue to be available as needed Addendum: 03/08/22 at 1108 by Stephanie Chahal MSW TIMOTHY Brown contacted Erasmo Hickey to obtain update. According to Mar, packet is still under review
[2022-03-08 12:00] VITALS: BP_SYST 115
--- NOTE | 2022-03-08 12:30 | NUR ---
Notes Patient is upset because he states that a doctor came to see him and he was told that "he is ready to go home." Patient wanted to know where his belongings were and when he could leave. Explained to the patient that the discharge order states to be transferred to a psych facility to finish off 5150 hold. Patient stated wanted to speak to a SW. Called Manuela GEORGE to come and talk to patient.
--- NOTE | 2022-03-08 13:15 | NUR ---
NETWORK DESKTOP SUPPORT SPECIALIST ACSW Stephanie met with patient at bedside to provide him update on plans for discharge as it relates to [employer]. ACSW completed introductions, provided business card, and patient was open to contact. ACSW informed patient of efforts to obtain placement for inpatient psych to continue evaluation under 5150 hold. Patient expressed frustration and confusion with plan. According to patient, he was informed he "was ready to be discharged today". ACSW provided brief explanation of 5150 hold. ACSW also informed him of telepsych's Dr. Burk's recommendation to discharge home following expiration of hold. Patient continued to expressed concern related to personal wheelchair and cell phone. ACSW explored option to contact his girlfriend to inquire into if items were in his home, but patient declined and stated he wanted to call her. Patient also continued to express his concerns with treatment plan related to 5150, ACSW continued efforts to provide explantation of 5150 and current discharge plan to discharge to psych facility. ACSW contacted Security to obtain info on patient's belongings. Jorge A located and provided belongings to patient's bedside. ACSW will continue to be available as needed Addendum: 03/08/22 at 1557 by Stephanie SANDOVAL TIMOTHY Brown responded to an additional request to meet with patient from assigned Nurse Radha. Patient was asleep. ACSW provided nurse with informational packet related to 5150 to be given to patient when he wakes up.
[2022-03-08] MEDS: HYDROcodone/ACETAMIN 10-325 MG TAB PO PRN ×2 (16:19→21:14)
[2022-03-08 16:24] VITALS: BP_SYST 113
--- NOTE | 2022-03-08 17:25 | NUR ---
Notes Patient is awake, calm, and resting. No s.s of distress noted. Patient states that pain is subsiding. No SOB. Breathing is even and nonlabored. Sitter present. Safety precautions in place and call light within reach. Sitter present.
--- NOTE | 2022-03-08 18:36 | NUR ---
Closing Notes Patient is eating dinner, no s.s of distress noted. Breathing is even and nonlabored, on room air. Patient denies severe pain. No SOB noted. Patient is calm. IV patent. Bed locked and at lowest position. Sitter in place. All needs met. Will endorse continue of care to oncoming nurse.
[2022-03-08 20:45] VITALS: BP_SYST 121
[2022-03-08] MEDS ORDERED: MUPIROCIN 1 GM OIN.PF.APP NS SCH (21:00)
[2022-03-08] MEDS: QUEtiapine FUMARATE 25 MG TABLET PO SCH (21:12)
[2022-03-08] MEDS: TAMSULOSIN HCL 0.4 MG CAP PO SCH (21:12)
[2022-03-08] MEDS: TOPIRAMATE 25 MG TABLET(TOPAMAX) PO SCH (21:12)
[2022-03-08] MEDS: MUPIROCIN 2% TOPICAL OINTMENT 22 GM NS SCH (21:16)
--- NOTE | 2022-03-08 22:04 | NUR ---
Patient resting in bed calmly, no sign of distress noted. Vitals stable. Denies suicidal ideation and any thoughts of self harm at this time. Patient stated that he was stressed about the construction at his apartment and other life stressors when he took the pills but is now "way past that." He also stated he has appointments with some doctors (including an ortho doctor and a [facility]) starting this upcoming week that he hopes he can keep. Updated patient about plan of care. Sitter at bedside, safety precautions in place.
[2022-03-09] VITALS (7 sets, daily range): BP systolic 92–125
--- NOTE | 2022-03-09 01:46 | NUR ---
Patient sleeping in bed, unlabored breathing on room air. Safety precautions in place.
--- NOTE | 2022-03-09 05:55 | NUR ---
Patient AOx4, vitals stable, unlabored breathing on room air. Calm and cooperative. Uses urinal. Denies suicidal ideation at this time. Sitter at bedside, safety precautions in place. Belongings inventoried and kept in secure cabinet in room. Bag with patient's retail store associate and cigarettes secured at nursing station.
[2022-03-09] MEDS: NORMAL SALINE 5 ML DISP.SYRIN IVF SCH ×3 (06:45→22:00)
[2022-03-09 07:54] LABS: BASOPHILS % (AUTO) 0.3 % (0.0-2.0); EOSINOPHILS # (AUTO) 0.3 K/uL (0.0-0.4); EOSINOPHILS % (AUTO) 3.1 % (0.0-4.0); HEMATOCRIT 39.2 % (36-54); HEMOGLOBIN 13.5 g/dL (14.0-18.0); LYMPHOCYTES # (AUTO) 2.4 K/uL (1.0-5.5); LYMPHOCYTES % (AUTO) 26.8 % (20.5-51.5); MEAN CORPUSCULAR HEMOGLOBIN 33 pg (27-31); MEAN CORPUSCULAR HGB CONC 35 % (32-36); MEAN CORPUSCULAR VOLUME 95 fL (79.0-98.0); MONOCYTES # (AUTO) 0.7 K/uL (0.0-1.0); MONOCYTES % (AUTO) 7.9 % (1.7-9.3); NEUTROPHILS # (AUTO) 5.6 K/uL (1.8-7.7); NEUTROPHILS % (AUTO) 61.9 % (40.0-70.0); PLATELET COUNT (AUTO) 158 K/uL (130-430); RED BLOOD CELL COUNT(AUTO) 4.12 MIL/uL (4.2-6.2); RED CELL DISTRIBUTION WIDTH 14.6 % (9.0-15.0)
--- NOTE | 2022-03-09 08:00 | NUR ---
Initial Notes Patient is Aox4. Patient is resting, eyes closed. No s/s of distress noted. Breathing is even and nonlabored, on room air. Denies pain. Denies SOB. Patient wants to sleep some more. Vital signs obtained, as documented, Patient denies suicidal ideation. Sitter present. Bed locked and at lowest position. Safety precautions in place.
[2022-03-09 08:23] LABS: CALCIUM 8.9 mg/dL (8.4-11.0); CREATININE 1.05 mg/dL (0.55-1.30)
[2022-03-09] MEDS: DULoxetine HCL 30 MG CAPSULE.DR (CYMBALTA) PO SCH (09:02)
[2022-03-09] MEDS: MUPIROCIN 2% TOPICAL OINTMENT 22 GM NS SCH ×2 (09:02→21:00)
[2022-03-09] MEDS: NICOTINE 21 MG/24 HR PATCH.TD24 TD SCH (09:02)
[2022-03-09] MEDS: GABAPENTIN 300 MG CAPSULE PO SCH ×3 (09:02→21:50)
[2022-03-09] MEDS: MAGNESIUM OXIDE 400 MG TABLET PO SCH (09:02)
[2022-03-09] MEDS: HYDROcodone/ACETAMIN 10-325 MG TAB PO PRN ×3 (09:03→22:02)
[2022-03-09] MEDS: THIAMINE HCL 100 MG TABLET PO SCH (09:03)
[2022-03-09] MEDS: methocarbamoL 500 MG TABLET PO SCH ×3 (09:03→21:51)
[2022-03-09] MEDS: busPIRone HCL 5 MG TABLET PO SCH ×3 (09:04→21:49)
[2022-03-09] MEDS: LORazepam 1 MG TABLET PO SCH ×2 (09:04→21:50)
[2022-03-09] MEDS: PANTOPRAZOLE SODIUM 40 MG TAB PO SCH (09:04)
[2022-03-09] MEDS: METOPROLOL TARTRATE 25 MG TABLET PO SCH ×2 (09:04→21:00)
[2022-03-09] MEDS: APIXABAN 2.5 MG TABLET PO SCH ×2 (09:08→21:00)
--- NOTE | 2022-03-09 12:24 | NUR ---
Notes Patient is eating lunch. No s.s of distress noted. Denies severe pain. Patient is calm. Sitter present. Safety precautions in place and call light within reach.
--- NOTE | 2022-03-09 16:30 | NUR ---
Notes Patient is awake. No s.s of distress noted. Breathing is even and nonlabored. Patient is calm. Sitter present. Safety precautions in place and call light within reach.
--- NOTE | 2022-03-09 18:18 | NUR ---
Notes Patient's blood pressure 92/60, HR 64. Paged Dr. Tian. Waiting for call back. Addendum: 03/09/22 at 1823 by Radha Naranjo LVN Notes Patient's blood pressure 92/60, HR 64. Patient asymptomatic. Paged Dr. Tian. Waiting for call back.
--- NOTE | 2022-03-09 19:22 | NUR ---
Closing Notes Patient is eating dinner. No s.s of distress noted. Breathing is even and nonlabored, on room air. Denies pain. No call back from Dr. Tian yet, in regards to low blood pressure. Iv patent. Patient states once 5150 is over, patient will get Uber or Lift to go home. All needs met. Safety precautions in place and call light within reach. Endorsed care to LYUDMILA Shepard.
[2022-03-09] MEDS: TOPIRAMATE 25 MG TABLET(TOPAMAX) PO SCH (21:00)
[2022-03-09] MEDS: QUEtiapine FUMARATE 25 MG TABLET PO SCH (21:00)
[2022-03-09] MEDS: TAMSULOSIN HCL 0.4 MG CAP PO SCH (21:53)
[2022-03-10 00:01] VITALS: BP_SYST 117
--- NOTE | 2022-03-10 07:30 | NUR ---
OPENING NOTES: PATIENT IS RESTING IN BED QUIETLY. NO SI NOTED AT THIS TIME. 5150 HAS BEEN DC AND WILL BE DC HOME TODAY. EXPLAINED POC AND PATIENT VERBALIZED UNDERSTANDING. NO ADDITIONAL DISTRESS NOTED. STABLE CONDITION AT THIS TIME.
[2022-03-10 07:39] LABS: BASOPHILS % (AUTO) 0.3 % (0.0-2.0); EOSINOPHILS # (AUTO) 0.3 K/uL (0.0-0.4); HEMATOCRIT 39.6 % (36-54); HEMOGLOBIN 13.5 g/dL (14.0-18.0); LYMPHOCYTES # (AUTO) 2.4 K/uL (1.0-5.5); LYMPHOCYTES % (AUTO) 24.8 % (20.5-51.5); MEAN CORPUSCULAR HEMOGLOBIN 33 pg (27-31); MEAN CORPUSCULAR HGB CONC 34 % (32-36); MEAN CORPUSCULAR VOLUME 96 fL (79.0-98.0); MONOCYTES # (AUTO) 0.7 K/uL (0.0-1.0); MONOCYTES % (AUTO) 6.9 % (1.7-9.3); NEUTROPHILS # (AUTO) 6.3 K/uL (1.8-7.7); PLATELET COUNT (AUTO) 163 K/uL (130-430); RED BLOOD CELL COUNT(AUTO) 4.14 MIL/uL (4.2-6.2); RED CELL DISTRIBUTION WIDTH 14.5 % (9.0-15.0); WHITE BLOOD COUNT (AUTO) 9.8 K/uL (4.8-10.8)
[2022-03-10 08:00] VITALS: BP_SYST 103
[2022-03-10 08:39] LABS: CALCIUM 8.5 mg/dL (8.4-11.0); CREATININE 1.22 mg/dL (0.55-1.30)
[2022-03-10] MEDS: busPIRone HCL 5 MG TABLET PO SCH (09:00)
[2022-03-10] MEDS: PANTOPRAZOLE SODIUM 40 MG TAB PO SCH (09:00)
[2022-03-10] MEDS: GABAPENTIN 300 MG CAPSULE PO SCH (09:00)
[2022-03-10] MEDS: METOPROLOL TARTRATE 25 MG TABLET PO SCH (09:00)
[2022-03-10] MEDS: THIAMINE HCL 100 MG TABLET PO SCH (09:00)
[2022-03-10] MEDS: MUPIROCIN 2% TOPICAL OINTMENT 22 GM NS SCH (09:00)
[2022-03-10] MEDS: MAGNESIUM OXIDE 400 MG TABLET PO SCH (09:00)
[2022-03-10] MEDS: DULoxetine HCL 30 MG CAPSULE.DR (CYMBALTA) PO SCH (09:00)
[2022-03-10] MEDS: NICOTINE 21 MG/24 HR PATCH.TD24 TD SCH (09:00)
[2022-03-10] MEDS: LORazepam 1 MG TABLET PO SCH (09:00)
[2022-03-10] MEDS: methocarbamoL 500 MG TABLET PO SCH (09:00)
[2022-03-10] MEDS: APIXABAN 2.5 MG TABLET PO SCH (09:00)
[2022-03-10 10:05] VITALS: BP_SYST 103
--- NOTE | 2022-03-10 10:22 | NUR ---
DC INSTRUCTIONS: DC INSTRUCTION GIVEN AND EXPLAINED TO PATIENT AND HE VERBALIZED UNDERSTANDING. IV REMOVED FROM THE RIGHT LEG. IV CATH INTACT WHEN REMOVED. COVER SITE WITH GAUZE AND SECURE WITH BAN-AID. NO BLEEDING NOTED. ARRANGE TRANSPORT USING A VOUCHER. ETA UNKNOWN AT THIS TIME.
--- NOTE | 2022-03-10 13:03 | NUR ---
TRANSPORTATION: SPOKE WITH JENNIFER FROM [employer] AND STATED THAT THEY ARE STILL LOOKING FOR A DRIVING TO PICK THE PATIENT. CALLED THE COMPANY X2. STILL NO SPONGE HOOKER. PATIENT IS GETTING FRUSTRATED.
--- NOTE | 2022-03-10 13:50 | NUR ---
CANCELLED TRANSPORTATION: SPOKE WITH [place] AND CANCELLED THE TRANSPORT DUE TO TAKING TOO LONG. PATIENT IS GETTING FRUSTRATED. PATIENT GOT HIS OWN LIFT RIDE.
--- NOTE | 2022-03-10 13:55 | NUR ---
DC HOME LEFT THE FACILITY IN A STABLE CONDITION WHEELED OUT BY PRIMARY NURSE. PATIENT GOT HIS OWN LIFT RIDE. CIGARETTE AND CQ DEVELOPER, AND MEDICATION FROM THE PHARMACY RETURN TO PATIENT. ALL PERSONAL BELONGINGS GIVEN TO PATIENT AND DENIES MISSING ITEMS.
[2022-03-16] MEDS ORDERED: LIB25 PO (08:48)
[2022-03-16] MEDS ORDERED: METO-442 PO (08:52)
== END 2022-03-10 13:45 | disposition home or self-care (01) | DRG 917 ==
LOC: SED 01:08 → STU 05:57
PROVIDERS: ADMIT Preventive Medicine Preventive Medicine/Occupational Environmental Medicine; ATTEND Preventive Medicine Preventive Medicine/Occupational Environmental Medicine
DX: T50.912A Poisoning by multiple unspecified drugs, medicaments and biological substances, intentional self-harm, initial encounter (principal); G92.8 Other toxic encephalopathy; F33.2 Major depressive disorder, recurrent severe without psychotic features; R45.851 Suicidal ideations; F41.9 Anxiety disorder, unspecified; F10.129 Alcohol abuse with intoxication, unspecified; Y90.9 Presence of alcohol in blood, level not specified; G89.4 Chronic pain syndrome; I48.91 Unspecified atrial fibrillation; K21.9 Gastro-esophageal reflux disease without esophagitis; K74.60 Unspecified cirrhosis of liver; E87.6 Hypokalemia; E88.09 Other disorders of plasma-protein metabolism, not elsewhere classified; Z20.822 Contact with and (suspected) exposure to COVID-19; R73.9 Hyperglycemia, unspecified; F17.200 Nicotine dependence, unspecified, uncomplicated; D64.9 Anemia, unspecified; G47.30 Sleep apnea, unspecified; I10 Essential (primary) hypertension; Z79.01 Long term (current) use of anticoagulants; Y92.89 Other specified places as the place of occurrence of the external cause
CPT/HCPCS: 36415; 70450-TC; 71045; 72125-TC; 76376; 80048; 80053; 80307; 81003; 82962; 83605; 83735; 83880; 84100; 84484; 85025; 85610-TC; 85730-TC; 87081; 93005; 96361; 96374; 96375; 99285; G0378; G0480; G0481; G0482; J1200; J1630; J2060; J2310

== ENCOUNTER 2022-05-01 09:43 | Inpatient (IN) | payer OTHER ==
[~2022-05-01] VITALS: Ht 167.6 cm; Wt 81.6 kg
[2022-05-01 09:43] VITALS: BP_SYST 130
[~2022-05-01 09:43] MED LIST changes: +CYCL10TA24 PO; +LIB25 PO; +METO-442 PO; -METO25TA6 PO; +TAMS-11 PO
[2022-05-01] MEDS ORDERED: DILTIAZEM HCL 60 MG TABLET PO ONE (10:15)
[2022-05-01] MEDS ORDERED: dilTIAZem HCL IVP 5 MG/ML VIAL IVP ONE (10:15)
[2022-05-01] MEDS ORDERED: NACL 0.9% 1,000 ML IV ONE (10:15)
[2022-05-01] MEDS ORDERED: LORazepam 2 MG/ML VIAL IVP ONE (10:15)
[2022-05-01] MEDS ORDERED: ONDANSETRON HCL 4 MG/2 ML VIAL IVP ONE (10:30)
[2022-05-01 10:31] LABS: BASOPHILS # (AUTO) 0.1 K/uL (0.0-0.2); BASOPHILS % (AUTO) 0.7 % (0.0-2.0); EOSINOPHILS # (AUTO) 0.1 K/uL (0.0-0.4); EOSINOPHILS % (AUTO) 0.6 % (0.0-4.0); HEMATOCRIT 50.2 % (36-54); HEMOGLOBIN 16.8 g/dL (14.0-18.0); LYMPHOCYTES # (AUTO) 2.6 K/uL (1.0-5.5); LYMPHOCYTES % (AUTO) 22.1 % (20.5-51.5); MEAN CORPUSCULAR HEMOGLOBIN 32 pg (27-31); MEAN CORPUSCULAR HGB CONC 33 % (32-36); MEAN CORPUSCULAR VOLUME 97 fL (79.0-98.0); MONOCYTES % (AUTO) 8.9 % (1.7-9.3); NEUTROPHILS # (AUTO) 7.8 K/uL (1.8-7.7); NEUTROPHILS % (AUTO) 67.7 % (40.0-70.0); PLATELET COUNT (AUTO) 349 K/uL (130-430); RED BLOOD CELL COUNT(AUTO) 5.18 MIL/uL (4.2-6.2); RED CELL DISTRIBUTION WIDTH 14.6 % (9.0-15.0); WHITE BLOOD COUNT (AUTO) 11.6 K/uL (4.8-10.8)
[2022-05-01 10:48] LABS: ANION GAP 25 (5-15); CALCIUM 9.1 mg/dL (8.4-11.0); CHLORIDE 98 mmol/L (98-107); CREATININE 1.19 mg/dL (0.55-1.30); GLUCOSE 86 mg/dL (70-99); UREA NITROGEN, BLOOD 15 mg/dL (8-21)
[2022-05-01 10:49] LABS: PROTHROMBIN TIME 10.4 SECS (9.5-12.5)
[2022-05-01 10:54] LABS: GFR AFRICAN AMERICAN 80 mL/min (>90)
[2022-05-01 10:58] LABS: ALANINE AMINOTRANSFERASE 62 U/L (12-78); ALBUMIN 4.3 g/dL (3.4-4.8); ALCOHOL, BLOOD 157 mg/dL (<10); AMYLASE 54 U/L (0-100); ASPARTATE AMINOTRANSFERASE 72 U/L (10-37); LIPASE 245 U/L (73-393); TOTAL BILIRUBIN 0.9 mg/dL (0.0-1.0)
[2022-05-01 11:18] LABS: ACETONE, SERUM NEGATIVE (NEGATIVE)
[2022-05-01] MEDS ORDERED: HYDROcodone/ACETAMIN 10-325 MG TAB PO ONE (12:30)
[2022-05-01] MEDS ORDERED: FOLIC ACID 1 MG, THIAMINE HCL 100 MG, MAGNESIUM SULFATE 1 GM, MVI 10 ML in NACL 0.9% 1,... IV ONE (14:00)
[2022-05-01] MEDS ORDERED: THIAMINE HCL 100 MG, MAGNESIUM SULFATE 1 GM in NS 100 ML IV ONE (15:00)
[2022-05-01] MEDS ORDERED: FOLIC ACID 1 MG, MVI 10 ML in NACL 0.9% 1,000 ML IV ONE (15:00)
[2022-05-01] MEDS ORDERED: DIPHENHYDRAMINE HCL 12.5 MG/5 ML UDC PO PRN (18:00)
[2022-05-01] MEDS ORDERED: COMMUNICATION ORDER XX ONE ×3 (18:00)
[2022-05-01] MEDS ORDERED: HYDROcodone/ACETAMIN 5-325 MG TAB (NORCO/ VICODIN) PO PRN (18:00)
[2022-05-01] MEDS ORDERED: LORazepam 2 MG/ML VIAL ONE (18:10)
[2022-05-01] MEDS ORDERED: HYDROcodone/ACETAMIN 10-325 MG TAB ONE (18:11)
[2022-05-01 20:30] VITALS: BP_SYST 107
[2022-05-01] MEDS ORDERED: CYCLOBENZAPRINE HCL 10 MG TABLET (FLEXERIL) PO SCH (21:00)
[2022-05-01] MEDS ORDERED: methocarbamoL 500 MG TABLET PO SCH (21:00)
[2022-05-01 22:40] VITALS: BP_SYST 118
[2022-05-01] MEDS: busPIRone HCL 5 MG TABLET PO SCH (22:47)
[2022-05-01] MEDS: chlordiazePOXIDE HCL 25 MG CAPSULE PO SCH (22:47)
[2022-05-01] MEDS: QUEtiapine FUMARATE 25 MG TABLET PO SCH (22:48)
[2022-05-01] MEDS: GABAPENTIN 300 MG CAPSULE PO SCH (22:48)
[2022-05-01] MEDS: TOPIRAMATE 25 MG TABLET(TOPAMAX) PO SCH (22:48)
[2022-05-01] MEDS: TAMSULOSIN HCL 0.4 MG CAP PO SCH (22:49)
[2022-05-01] MEDS: METOPROLOL TARTRATE 50 MG TABLET PO SCH (22:49)
[2022-05-01] MEDS: APIXABAN 2.5 MG TABLET PO SCH (22:53)
[2022-05-01] MEDS: LORazepam 2 MG/ML VIAL IVP PRN (22:54)
[2022-05-01] MEDS: HYDROcodone/ACETAMIN 10-325 MG TAB PO PRN (23:02)
[2022-05-02 00:14] VITALS: BP_SYST 131
[2022-05-02 08:00] VITALS: BP_SYST 91
[2022-05-02] MEDS: DULoxetine HCL 30 MG CAPSULE.DR (CYMBALTA) PO SCH (08:14)
[2022-05-02] MEDS: MAGNESIUM OXIDE 400 MG TABLET PO SCH (08:14)
[2022-05-02] MEDS: chlordiazePOXIDE HCL 25 MG CAPSULE PO SCH ×2 (08:14→21:36)
[2022-05-02] MEDS: busPIRone HCL 5 MG TABLET PO SCH ×3 (08:14→21:36)
[2022-05-02] MEDS: PANTOPRAZOLE SODIUM 40 MG TAB PO SCH (08:14)
[2022-05-02] MEDS: GABAPENTIN 300 MG CAPSULE PO SCH ×3 (08:14→21:36)
[2022-05-02] MEDS: METOPROLOL TARTRATE 50 MG TABLET PO SCH ×2 (08:16→21:00)
[2022-05-02] MEDS: APIXABAN 2.5 MG TABLET PO SCH ×2 (08:16→21:35)
[2022-05-02] MEDS: NICOTINE 14 MG/24 HR PATCH.TD24 TD SCH (08:16)
[2022-05-02] MEDS ORDERED: THIAMINE HCL 100 MG TABLET PO SCH (09:00)
[2022-05-02] MEDS ORDERED: OMEPRAZOLE Non-Formulary 20 MG CAPSULE.DR PO SCH (09:00)
[2022-05-02 11:47] VITALS: BP_SYST 102
[2022-05-02] MEDS ORDERED: FOLIC ACID 1 MG, MVI 10 ML in NACL 0.9% 1,000 ML IV SCH (15:00)
[2022-05-02] MEDS ORDERED: THIAMINE HCL 100 MG, MAGNESIUM SULFATE 1 GM in NS 100 ML IV SCH (15:00)
[2022-05-02] MEDS: LORazepam 2 MG/ML VIAL IVP PRN (16:23)
[2022-05-02 17:20] VITALS: BP_SYST 94
[2022-05-02] MEDS: HYDROcodone/ACETAMIN 10-325 MG TAB PO PRN (18:26)
[2022-05-02 20:21] VITALS: BP_SYST 97
[2022-05-02] MEDS: QUEtiapine FUMARATE 25 MG TABLET PO SCH (21:34)
[2022-05-02] MEDS: TOPIRAMATE 25 MG TABLET(TOPAMAX) PO SCH (21:36)
[2022-05-02] MEDS: TAMSULOSIN HCL 0.4 MG CAP PO SCH (21:36)
[2022-05-03] VITALS (7 sets, daily range): BP systolic 89–112
[2022-05-03] MEDS: HYDROcodone/ACETAMIN 10-325 MG TAB PO PRN (00:51)
[2022-05-03 08:08] LABS: BASOPHILS % (AUTO) 0.5 % (0.0-2.0); EOSINOPHILS # (AUTO) 0.2 K/uL (0.0-0.4); EOSINOPHILS % (AUTO) 3.3 % (0.0-4.0); HEMATOCRIT 42.9 % (36-54); HEMOGLOBIN 14.3 g/dL (14.0-18.0); LYMPHOCYTES # (AUTO) 1.7 K/uL (1.0-5.5); LYMPHOCYTES % (AUTO) 29.6 % (20.5-51.5); MEAN CORPUSCULAR HEMOGLOBIN 33 pg (27-31); MEAN CORPUSCULAR HGB CONC 33 % (32-36); MEAN CORPUSCULAR VOLUME 98 fL (79.0-98.0); MONOCYTES # (AUTO) 0.5 K/uL (0.0-1.0); MONOCYTES % (AUTO) 9.4 % (1.7-9.3); NEUTROPHILS # (AUTO) 3.3 K/uL (1.8-7.7); NEUTROPHILS % (AUTO) 57.2 % (40.0-70.0); PLATELET COUNT (AUTO) 154 K/uL (130-430); RED BLOOD CELL COUNT(AUTO) 4.37 MIL/uL (4.2-6.2); WHITE BLOOD COUNT (AUTO) 5.8 K/uL (4.8-10.8)
[2022-05-03] MEDS: MAGNESIUM OXIDE 400 MG TABLET PO SCH (08:45)
[2022-05-03] MEDS: THIAMINE HCL 100 MG TABLET PO SCH (08:45)
[2022-05-03] MEDS: chlordiazePOXIDE HCL 25 MG CAPSULE PO SCH ×2 (08:45→21:34)
[2022-05-03] MEDS: GABAPENTIN 300 MG CAPSULE PO SCH ×3 (08:45→21:35)
[2022-05-03] MEDS: DULoxetine HCL 30 MG CAPSULE.DR (CYMBALTA) PO SCH (08:46)
[2022-05-03] MEDS: busPIRone HCL 5 MG TABLET PO SCH ×3 (08:46→21:41)
[2022-05-03] MEDS: PANTOPRAZOLE SODIUM 40 MG TAB PO SCH (08:46)
[2022-05-03] MEDS: APIXABAN 2.5 MG TABLET PO SCH (08:48)
[2022-05-03] MEDS: NICOTINE 14 MG/24 HR PATCH.TD24 TD SCH (08:48)
[2022-05-03] MEDS: METOPROLOL TARTRATE 50 MG TABLET PO SCH ×2 (08:52→21:36)
[2022-05-03 09:02] LABS: ALBUMIN 3.2 g/dL (3.4-4.8); CALCIUM 8.8 mg/dL (8.4-11.0); CREATININE 0.85 mg/dL (0.55-1.30); TOTAL BILIRUBIN 0.9 mg/dL (0.0-1.0)
[2022-05-03] MEDS: LORazepam 2 MG/ML VIAL IVP PRN (16:00)
[2022-05-03] MEDS: cefTRIAXone 1 GM in D5W 50 ML IV SCH (16:03)
[2022-05-03] MEDS: TOPIRAMATE 25 MG TABLET(TOPAMAX) PO SCH (21:36)
[2022-05-03] MEDS: QUEtiapine FUMARATE 25 MG TABLET PO SCH (21:37)
[2022-05-03] MEDS: TAMSULOSIN HCL 0.4 MG CAP PO SCH (21:37)
[2022-05-04 00:45] VITALS: BP_SYST 127
[2022-05-04 08:00] VITALS: BP_SYST 115
[2022-05-04] MEDS: LORazepam 2 MG/ML VIAL IVP PRN ×2 (08:47→12:39)
[2022-05-04] MEDS: METOPROLOL TARTRATE 50 MG TABLET PO SCH ×2 (09:00→21:15)
[2022-05-04] MEDS: busPIRone HCL 5 MG TABLET PO SCH ×3 (09:00→21:14)
[2022-05-04] MEDS: GABAPENTIN 300 MG CAPSULE PO SCH ×3 (09:00→21:13)
[2022-05-04 09:20] LABS: BASOPHILS % (AUTO) 0.3 % (0.0-2.0); EOSINOPHILS # (AUTO) 0.3 K/uL (0.0-0.4); EOSINOPHILS % (AUTO) 3.7 % (0.0-4.0); HEMATOCRIT 45.2 % (36-54); HEMOGLOBIN 14.9 g/dL (14.0-18.0); LYMPHOCYTES # (AUTO) 1.2 K/uL (1.0-5.5); LYMPHOCYTES % (AUTO) 15.5 % (20.5-51.5); MEAN CORPUSCULAR HEMOGLOBIN 33 pg (27-31); MEAN CORPUSCULAR HGB CONC 33 % (32-36); MEAN CORPUSCULAR VOLUME 99 fL (79.0-98.0); MONOCYTES # (AUTO) 0.5 K/uL (0.0-1.0); MONOCYTES % (AUTO) 6.8 % (1.7-9.3); NEUTROPHILS # (AUTO) 5.8 K/uL (1.8-7.7); NEUTROPHILS % (AUTO) 73.7 % (40.0-70.0); PLATELET COUNT (AUTO) 144 K/uL (130-430); RED BLOOD CELL COUNT(AUTO) 4.56 MIL/uL (4.2-6.2); RED CELL DISTRIBUTION WIDTH 14.1 % (9.0-15.0); WHITE BLOOD COUNT (AUTO) 7.9 K/uL (4.8-10.8)
[2022-05-04 09:28] LABS: ALBUMIN 3.2 g/dL (3.4-4.8); C-REACTIVE PROTEIN QUANT 1.8 mg/dL (0-0.5); CREATININE 0.94 mg/dL (0.55-1.30); TOTAL BILIRUBIN 0.7 mg/dL (0.0-1.0)
[2022-05-04 09:30] LABS: PROTHROMBIN TIME 10.4 SECS (9.5-12.5)
[2022-05-04] MEDS: NICOTINE 14 MG/24 HR PATCH.TD24 TD SCH (11:44)
[2022-05-04] MEDS: cefTRIAXone 1 GM in D5W 50 ML IV SCH (11:44)
[2022-05-04 12:07] VITALS: BP_SYST 107
[2022-05-04 14:21] LABS: BILIRUBIN,URINE NEGATIVE (NEGATIVE); BLOOD, URINE NEGATIVE (NEGATIVE); CLARITY/URINE CLEAR (CLEAR); COLOR,URINE YELLOW (YELLOW); GLUCOSE,URINE NEGATIVE (NEGATIVE); KETONES,URINE NEGATIVE (NEGATIVE); LEUKOCYTE ESTERASE ,URINE NEGATIVE (NEGATIVE); NITRITE, URINE NEGATIVE (NEGATIVE); PROTEIN URINE NEGATIVE (NEGATIVE)
[2022-05-04] MEDS ORDERED: THROMBIN (BOVINE) 5000 UNITS/ VIAL TP ONE (14:21)
[2022-05-04] MEDS: THIAMINE HCL 100 MG TABLET PO SCH (15:37)
[2022-05-04] MEDS: chlordiazePOXIDE HCL 25 MG CAPSULE PO SCH ×2 (15:37→21:13)
[2022-05-04] MEDS: PANTOPRAZOLE SODIUM 40 MG TAB PO SCH (15:38)
[2022-05-04] MEDS: DULoxetine HCL 30 MG CAPSULE.DR (CYMBALTA) PO SCH (15:38)
[2022-05-04] MEDS: MAGNESIUM OXIDE 400 MG TABLET PO SCH (15:40)
[2022-05-04 16:12] VITALS: BP_SYST 110
[2022-05-04 20:00] VITALS: BP_SYST 112
[2022-05-04] MEDS: TOPIRAMATE 25 MG TABLET(TOPAMAX) PO SCH (21:00)
[2022-05-04] MEDS: TAMSULOSIN HCL 0.4 MG CAP PO SCH (21:13)
[2022-05-04] MEDS: QUEtiapine FUMARATE 25 MG TABLET PO SCH (21:13)
[2022-05-05 07:38] LABS: BASOPHILS % (AUTO) 0.4 % (0.0-2.0); EOSINOPHILS # (AUTO) 0.3 K/uL (0.0-0.4); EOSINOPHILS % (AUTO) 3.8 % (0.0-4.0); HEMATOCRIT 46.8 % (36-54); HEMOGLOBIN 15.5 g/dL (14.0-18.0); LYMPHOCYTES # (AUTO) 1.6 K/uL (1.0-5.5); LYMPHOCYTES % (AUTO) 17.7 % (20.5-51.5); MEAN CORPUSCULAR HEMOGLOBIN 32 pg (27-31); MEAN CORPUSCULAR HGB CONC 33 % (32-36); MEAN CORPUSCULAR VOLUME 97 fL (79.0-98.0); MONOCYTES # (AUTO) 0.5 K/uL (0.0-1.0); MONOCYTES % (AUTO) 5.6 % (1.7-9.3); NEUTROPHILS # (AUTO) 6.4 K/uL (1.8-7.7); NEUTROPHILS % (AUTO) 72.5 % (40.0-70.0); PLATELET COUNT (AUTO) 140 K/uL (130-430); RED BLOOD CELL COUNT(AUTO) 4.82 MIL/uL (4.2-6.2); RED CELL DISTRIBUTION WIDTH 14.1 % (9.0-15.0); WHITE BLOOD COUNT (AUTO) 8.9 K/uL (4.8-10.8)
[2022-05-05 07:58] LABS: C-REACTIVE PROTEIN QUANT 0.7 mg/dL (0-0.5); CALCIUM 9.5 mg/dL (8.4-11.0); CREATININE 1.05 mg/dL (0.55-1.30)
[2022-05-05] MEDS: LORazepam 2 MG/ML VIAL IVP PRN ×2 (08:00→13:45)
[2022-05-05 08:06] VITALS: BP_SYST 106
[2022-05-05] MEDS: busPIRone HCL 5 MG TABLET PO SCH ×3 (09:00→20:49)
[2022-05-05] MEDS: METOPROLOL TARTRATE 50 MG TABLET PO SCH ×2 (09:00→20:51)
[2022-05-05] MEDS: GABAPENTIN 300 MG CAPSULE PO SCH ×3 (09:00→20:49)
[2022-05-05] MEDS: chlordiazePOXIDE HCL 25 MG CAPSULE PO SCH ×2 (09:00→20:49)
[2022-05-05 09:03] LABS: ERYTHROCYTE SEDIMENTATION RATE 11 MM/HR (0-15)
[2022-05-05] MEDS: NICOTINE 14 MG/24 HR PATCH.TD24 TD SCH (09:15)
[2022-05-05] MEDS ORDERED: THROMBIN (BOVINE) 5000 UNITS/ VIAL TP ONE (09:29)
[2022-05-05] MEDS ORDERED: NS 1000 ML IV.SOLN IV ONE (10:20)
[2022-05-05] MEDS ORDERED: LR 1,000 ML IV.SOLN IV ONE (10:20)
[2022-05-05] MEDS ORDERED: HEPARIN SODIUM,PORCINE 5,000 UNITS/ML VIAL SUBCUT ONE (10:20)
[2022-05-05] MEDS ORDERED: DEXAMETHASONE SOD PHOSPHATE 4 MG/ML VIAL IVP ONE (10:20)
[2022-05-05] MEDS ORDERED: cefTRIAXone 1 GM VIAL IV ONE (10:20)
[2022-05-05] MEDS ORDERED: fentaNYL CITRATE 250 MCG/5 ML AMP IV ONE (10:20)
[2022-05-05] MEDS ORDERED: NS IRRIG SOLN 1000 ML IR ONE (10:20)
[2022-05-05] MEDS ORDERED: ePHEDrine sulfate 50 MG/ML VIAL IVP ONE (10:20)
[2022-05-05] MEDS ORDERED: MIDAZOLAM HCL 5 MG/5 ML VIAL IVP ONE (10:20)
[2022-05-05] MEDS ORDERED: CEFAZOLIN 2 GM IVPB PREMIX 50 ML IV ONE (10:20)
[2022-05-05 13:00] VITALS: BP_SYST 110
[2022-05-05 13:05] VITALS: BP_SYST 110
[2022-05-05] MEDS: MAGNESIUM OXIDE 400 MG TABLET PO SCH (13:41)
[2022-05-05] MEDS: PANTOPRAZOLE SODIUM 40 MG TAB PO SCH (13:41)
[2022-05-05] MEDS: THIAMINE HCL 100 MG TABLET PO SCH (13:41)
[2022-05-05] MEDS: DULoxetine HCL 30 MG CAPSULE.DR (CYMBALTA) PO SCH (13:41)
[2022-05-05 20:00] VITALS: BP_SYST 96
[2022-05-05] MEDS: TAMSULOSIN HCL 0.4 MG CAP PO SCH (20:49)
[2022-05-05] MEDS: TOPIRAMATE 25 MG TABLET(TOPAMAX) PO SCH (20:49)
[2022-05-05] MEDS: QUEtiapine FUMARATE 25 MG TABLET PO SCH (20:49)
[2022-05-06 00:24] VITALS: BP_SYST 123
[2022-05-06 06:51] LABS: BASOPHILS % (AUTO) 0.2 % (0.0-2.0); EOSINOPHILS % (AUTO) 0.1 % (0.0-4.0); HEMOGLOBIN 13.1 g/dL (14.0-18.0); LYMPHOCYTES % (AUTO) 5.9 % (20.5-51.5); MEAN CORPUSCULAR HEMOGLOBIN 33 pg (27-31); MEAN CORPUSCULAR HGB CONC 34 % (32-36); MEAN CORPUSCULAR VOLUME 97 fL (79.0-98.0); MONOCYTES # (AUTO) 0.8 K/uL (0.0-1.0); MONOCYTES % (AUTO) 4.6 % (1.7-9.3); NEUTROPHILS # (AUTO) 15.7 K/uL (1.8-7.7); NEUTROPHILS % (AUTO) 89.2 % (40.0-70.0); PLATELET COUNT (AUTO) 126 K/uL (130-430); RED BLOOD CELL COUNT(AUTO) 4.04 MIL/uL (4.2-6.2); RED CELL DISTRIBUTION WIDTH 14.2 % (9.0-15.0); WHITE BLOOD COUNT (AUTO) 17.6 K/uL (4.8-10.8)
[2022-05-06 08:00] VITALS: BP_SYST 103
[2022-05-06 08:30] LABS: ALBUMIN 3.4 g/dL (3.4-4.8); CALCIUM 9.5 mg/dL (8.4-11.0); CREATININE 1.33 mg/dL (0.55-1.30); TOTAL BILIRUBIN 0.5 mg/dL (0.0-1.0)
[2022-05-06] MEDS: METOPROLOL TARTRATE 50 MG TABLET PO SCH (09:00)
[2022-05-06] MEDS: DULoxetine HCL 30 MG CAPSULE.DR (CYMBALTA) PO SCH (09:17)
[2022-05-06] MEDS: GABAPENTIN 300 MG CAPSULE PO SCH (09:17)
[2022-05-06] MEDS: busPIRone HCL 5 MG TABLET PO SCH (09:18)
[2022-05-06] MEDS: MAGNESIUM OXIDE 400 MG TABLET PO SCH (09:20)
[2022-05-06] MEDS: NICOTINE 14 MG/24 HR PATCH.TD24 TD SCH (09:20)
[2022-05-06] MEDS: THIAMINE HCL 100 MG TABLET PO SCH (09:21)
[2022-05-06] MEDS: chlordiazePOXIDE HCL 25 MG CAPSULE PO SCH (09:21)
[2022-05-06] MEDS: PANTOPRAZOLE SODIUM 40 MG TAB PO SCH (09:21)
[2022-05-06 11:32] VITALS: BP_SYST 123
[2022-05-06 13:06] VITALS: BP_SYST 123
== END 2022-05-06 13:30 | disposition home or self-care (01) | DRG 853 ==
LOC: SED 09:43 → STU 14:00
PROVIDERS: ADMIT Internal Medicine Cardiovascular Disease; ATTEND Preventive Medicine Preventive Medicine/Occupational Environmental Medicine
PROC: 05HY33Z Insertion of Infusion Device into Upper Vein, Percutaneous Approach (ICD-10-PCS; principal; 2022-05-01)
PROC: B54MZZA Ultrasonography of Right Upper Extremity Veins, Guidance (ICD-10-PCS; 2022-05-01)
PROC: 02HK3NZ Insertion of Intracardiac Pacemaker into Right Ventricle, Percutaneous Approach (ICD-10-PCS; 2022-05-05)
PROC: B5191ZZ Fluoroscopy of Inferior Vena Cava using Low Osmolar Contrast (ICD-10-PCS; 2022-05-05)
DX: A41.9 Sepsis, unspecified organism (principal); Z00.6 Encounter for examination for normal comparison and control in clinical research program; K85.90 Acute pancreatitis without necrosis or infection, unspecified; I48.20 Chronic atrial fibrillation, unspecified; I44.2 Atrioventricular block, complete; I43 Cardiomyopathy in diseases classified elsewhere; I42.6 Alcoholic cardiomyopathy; K21.9 Gastro-esophageal reflux disease without esophagitis; I10 Essential (primary) hypertension; Z20.822 Contact with and (suspected) exposure to COVID-19; F10.10 Alcohol abuse, uncomplicated; Y90.9 Presence of alcohol in blood, level not specified; K74.60 Unspecified cirrhosis of liver; N40.0 Benign prostatic hyperplasia without lower urinary tract symptoms; G47.30 Sleep apnea, unspecified; R74.01 Elevation of levels of liver transaminase levels; Z95.0 Presence of cardiac pacemaker; Z87.891 Personal history of nicotine dependence; Z79.01 Long term (current) use of anticoagulants
CPT/HCPCS: 36415; 71045; 76000; 80048; 80053; 81003; 82009; 82150; 82550; 83605; 83690; 83735; 83880; 84484; 85025; 85610-TC; 85651-TC; 85730-TC; 86140; 86886; 86900; 86901; 87040; 87081; 87086; 93005; 93306; 94760; 96365; 96368; 96375; 99285; C1786; G0378; G0482; J0690; J0696; J1100; J1644; J2060; J2250; J2405; J3010; J3411; J3475; J3490; J7030; J7050; J7060; J7120; Q9967

== ENCOUNTER 2022-05-13 00:02 | Emergency (ER) | payer OTHER ==
--- NOTE | 2022-05-13 00:35 | NUR ---
Patient left without being triaged/seen. ER MD aware
[2022-05-13] MEDS ORDERED: CEPH-548 PO (15:01)
== END 2022-05-13 00:35 | disposition left against medical advice (07) ==
LOC: SED 00:02
DX: Z48.00 Encounter for change or removal of nonsurgical wound dressing (principal); Z53.21 Procedure and treatment not carried out due to patient leaving prior to being seen by health care provider

== ENCOUNTER 2022-06-22 15:31 | Emergency (ER) | payer OTHER ==
[~2022-06-22] VITALS: Ht 167.6 cm; Wt 83.9 kg
[~2022-06-22 15:31] MED LIST changes: +CEPH-548 PO
[2022-06-22 15:43] VITALS: BP_SYST 123
--- NOTE | 2022-06-22 15:49 | NUR ---
Patient triaged and placed in waiting room. VSS and patient appears in no acute distress at this time. Accompanied by SELF, awaiting available bed, and MD notified of need for MSE.
[2022-06-22] MEDS ORDERED: BACI15OI13 TP (17:52)
[2022-06-22] MEDS ORDERED: CEPH250C PO (17:52)
[2022-06-22 18:00] VITALS: BP_SYST 129
--- NOTE | 2022-06-22 18:01 | NUR ---
Patient given written and verbal discharge instructions and verbalizes understanding. ER MD discussed with patient the results and treatment provided. Patient in stable condition. ID arm band removed. IV catheter removed intact and dressing applied, no active bleeding. Rx of Bacitracin Zinc, Keflex given. Patient educated on pain management and to follow up with PMD. Pain Scale . Opportunity for questions provided and answered. Medication side effect fact sheet provided.
== END 2022-06-22 18:00 | disposition home or self-care (01) ==
LOC: SED 15:31
DX: T81.41XA Infection following a procedure, superficial incisional surgical site, initial encounter (principal); G62.9 Polyneuropathy, unspecified; Z79.899 Other long term (current) drug therapy
CPT/HCPCS: 99283

== ENCOUNTER 2022-06-25 23:18 | Inpatient (IN) | payer OTHER ==
[~2022-06-25] VITALS: Ht 167.6 cm; Wt 79.4 kg
[~2022-06-25 23:18] MED LIST changes: +BACI15OI13 TP; +CEPH250C PO
[2022-06-25 23:25] VITALS: BP_SYST 130
--- NOTE | 2022-06-25 23:29 | NUR ---
PT WHEELED HIMSELF FR HOME C/O PACEMAKER MALFUNCTION. PER PT, HE FEELS LIKE IT'S ACTING UP. PACEMAKER PLACED IN APR 2022 ON RUC. NKDA PMH: CARDIAC ARRHYTHMIAS, HTN, NEUROPATHY. L HIP SURGERY 3 YRS AGO,.
--- NOTE | 2022-06-25 23:39 | NUR ---
Received report from LYUDMILA Cary; assuming care patient at this time.
--- NOTE | 2022-06-25 23:45 | NUR ---
MD BRINK AT BEDSIDE EXAMINING PT.
[2022-06-26] MEDS ORDERED: NACL 0.9% 1,000 ML IV ONE (01:00)
[2022-06-26] MEDS ORDERED: dilTIAZem HCL IVP 5 MG/ML VIAL IVP ONE (01:00)
[2022-06-26 01:23] LABS: MEAN CORPUSCULAR HGB CONC 34 % (32-36)
[2022-06-26 01:39] LABS: ANION GAP 10 (5-15); BASOPHILS # (AUTO) 0.1 K/uL (0.0-0.2); BASOPHILS % (AUTO) 0.7 % (0.0-2.0); CALCIUM 9.3 mg/dL (8.4-11.0); CHLORIDE 104 mmol/L (98-107); EOSINOPHILS # (AUTO) 0.2 K/uL (0.0-0.4); EOSINOPHILS % (AUTO) 1.9 % (0.0-4.0); GLUCOSE 105 mg/dL (70-99); HEMATOCRIT 42.1 % (36-54); HEMOGLOBIN 14.4 g/dL (14.0-18.0); LYMPHOCYTES # (AUTO) 1.7 K/uL (1.0-5.5); MEAN CORPUSCULAR HEMOGLOBIN 32 pg (27-31); MEAN CORPUSCULAR VOLUME 94 fL (79.0-98.0); MONOCYTES % (AUTO) 9.1 % (1.7-9.3); NEUTROPHILS # (AUTO) 8.3 K/uL (1.8-7.7); NEUTROPHILS % (AUTO) 73.3 % (40.0-70.0); PLATELET COUNT (AUTO) 220 K/uL (130-430); RED BLOOD CELL COUNT(AUTO) 4.48 MIL/uL (4.2-6.2); RED CELL DISTRIBUTION WIDTH 13.2 % (9.0-15.0); WHITE BLOOD COUNT (AUTO) 11.4 K/uL (4.8-10.8)
[2022-06-26 01:40] LABS: UREA NITROGEN, BLOOD 14 mg/dL (8-21)
--- NOTE | 2022-06-26 01:42 | NUR ---
Admit bed requested Patient will be admitted to care of . Admitted to TELEMETRY unit. Diagnosis A FIB WITH RVR Inpatient (Yes or No) Y Observation (Yes or No) N Orientation concerns or request close to nursing station (Yes or No) N Covid Status PENDING On vent or bipap N Isolation requirements N Needs a sitter N From Home (Yes or if No enter name of facility) Y Requires Dialysis (Yes or No) N Med Rec Completed (Yes of No) Y
[2022-06-26 01:45] LABS: GFR AFRICAN AMERICAN 87 mL/min (>90)
[2022-06-26] MEDS ORDERED: dilTIAZem HCL IVP 5 MG/ML VIAL IVP PRN (01:45)
[2022-06-26] MEDS ORDERED: METOPROLOL TARTRATE 25 MG TABLET PO ONE (01:45)
[2022-06-26] MEDS ORDERED: DILTIAZEM HCL 60 MG TABLET PO ONE (01:45)
[2022-06-26 01:46] LABS: ALANINE AMINOTRANSFERASE 28 U/L (12-78); ALBUMIN 3.7 g/dL (3.4-4.8); ALCOHOL, BLOOD 3 mg/dL (<10); ASPARTATE AMINOTRANSFERASE 25 U/L (10-37); TOTAL BILIRUBIN 0.4 mg/dL (0.0-1.0)
--- NOTE | 2022-06-26 01:56 | NUR ---
# 22 gauge angiocath placed to L HAND. Use of asceptic technique. Opsite placed over site. Blood return noted. Flushed with 10 cc of normal saline. No evidence of infiltration noted. Patient tolerated well.
--- NOTE | 2022-06-26 02:01 | NUR ---
COVID SWAB COLLECTED AND SENT TO LAB.
--- NOTE | 2022-06-26 08:15 | NUR ---
[facility] SWABBED FOR ADMIN AND SENT TO LAB
--- NOTE | 2022-06-26 08:25 | NUR ---
BREAKFAST TRAY GIVEN, EATING WELL.
--- NOTE | 2022-06-26 09:05 | NUR ---
Patient will be admitted to care of [facility]. Admitted to unit. Will go to room . Belongings list completed. Complete and up to date summary report printed. SBAR report to be given at bedside with opportunity for questions.
--- NOTE | 2022-06-26 09:13 | NUR ---
CONSULT CARDIOLOGY AFIB RVR DR AVILA [phone] DR AVILA IS ROUNDING AND WAS INFORMED OF CONSULT
[2022-06-26 09:21] VITALS: BP_SYST 120
--- NOTE | 2022-06-26 09:30 | NUR ---
TELEPHONE ORDERS OBTAINED FROM DR. BRADY FOR PO NORCO, THIAMINE, AND LIBRIUM
--- NOTE | 2022-06-26 10:12 | NUR ---
[facility] SCREEN CANCELLED, PATIENT ADMITTED AND SCREENED LESS THAN 30 DAYS AGO
[2022-06-26] MEDS ORDERED: chlordiazePOXIDE HCL 25 MG CAPSULE PO ONE (10:15)
[2022-06-26] MEDS ORDERED: THIAMINE HCL 100 MG TABLET PO ONE (10:15)
[2022-06-26] MEDS: HYDROcodone/ACETAMIN 5-325 MG TAB (NORCO/ VICODIN) PO PRN (10:45)
[2022-06-26] MEDS: METOPROLOL TARTRATE 25 MG TABLET PO SCH ×2 (10:47→21:00)
--- NOTE | 2022-06-26 10:55 | NUR ---
patient c/o pain 6/10 in left hip,shoulder,prn norco administered per emar
[2022-06-26 12:58] VITALS: BP_SYST 102
--- NOTE | 2022-06-26 13:30 | NUR ---
patient c/o 10/10 pain in r hip and shoulder, orders obtained from Dr. Marcano for iv morphine, will administer once verified by pharmacy
[2022-06-26] MEDS: GABAPENTIN 300 MG CAPSULE PO SCH ×2 (13:52→20:58)
[2022-06-26] MEDS: MORPHINE 4 MG INJ. 4 MG/ML VIAL IVP PRN ×2 (13:53→20:58)
[2022-06-26 16:16] VITALS: BP_SYST 121
[2022-06-26] MEDS ORDERED: NALOXONE HCL 0.4 MG/ML AMP (NARCAN) IVP PRN (17:00)
[2022-06-26] MEDS ORDERED: HYDROcodone/ACETAMIN 5-325 MG TAB (NORCO/ VICODIN) PO PRN (17:00)
[2022-06-26] MEDS ORDERED: QUETIAPINE FUMARATE 75 MG PO SCH (17:00)
[2022-06-26] MEDS ORDERED: QUEtiapine FUMARATE 25 MG TABLET PO PRN (17:30)
[2022-06-26 20:00] VITALS: BP_SYST 109
[2022-06-26] MEDS ORDERED: TAMSULOSIN HCL 0.4 MG CAP PO SCH (21:00)
[2022-06-26] MEDS ORDERED: NON-FORMULARY MEDICATION (Apixaban (Eliquis) 5 MG) PO SCH (21:00)
[2022-06-26] MEDS ORDERED: GABAPENTIN 400 MG CAPSULE PO SCH (21:00)
[2022-06-26] MEDS ORDERED: chlordiazePOXIDE HCL 25 MG CAPSULE PO SCH (21:00)
[2022-06-26] MEDS ORDERED: METOPROLOL TARTRATE 50 MG TABLET PO SCH (21:00)
[2022-06-26] MEDS: busPIRone HCL 5 MG TABLET PO SCH (21:01)
[2022-06-26] MEDS: APIXABAN 2.5 MG TABLET PO SCH (21:04)
[2022-06-26] MEDS: chlordiazePOXIDE HCL 25 MG CAPSULE PO SCH (21:05)
[2022-06-26] MEDS: CYCLOBENZAPRINE HCL 10 MG TABLET (FLEXERIL) PO SCH (21:05)
[2022-06-26] MEDS: BACITRACIN ZINC 15 GM TOPICAL OINTMENT TP SCH (21:05)
[2022-06-27] VITALS (9 sets, daily range): BP systolic 84–109
[2022-06-27] MEDS: MORPHINE 4 MG INJ. 4 MG/ML VIAL IVP PRN ×3 (01:43→06:36)
[2022-06-27 07:00] LABS: BASOPHILS # (AUTO) 0.1 K/uL (0.0-0.2); BASOPHILS % (AUTO) 0.7 % (0.0-2.0); EOSINOPHILS # (AUTO) 0.4 K/uL (0.0-0.4); EOSINOPHILS % (AUTO) 4.4 % (0.0-4.0); HEMATOCRIT 44.7 % (36-54); HEMOGLOBIN 15.2 g/dL (14.0-18.0); LYMPHOCYTES # (AUTO) 2.9 K/uL (1.0-5.5); LYMPHOCYTES % (AUTO) 30.5 % (20.5-51.5); MEAN CORPUSCULAR HEMOGLOBIN 32 pg (27-31); MEAN CORPUSCULAR HGB CONC 34 % (32-36); MEAN CORPUSCULAR VOLUME 96 fL (79.0-98.0); MONOCYTES % (AUTO) 10.1 % (1.7-9.3); NEUTROPHILS # (AUTO) 5.2 K/uL (1.8-7.7); NEUTROPHILS % (AUTO) 54.3 % (40.0-70.0); PLATELET COUNT (AUTO) 180 K/uL (130-430); RED BLOOD CELL COUNT(AUTO) 4.68 MIL/uL (4.2-6.2); RED CELL DISTRIBUTION WIDTH 13.2 % (9.0-15.0); WHITE BLOOD COUNT (AUTO) 9.6 K/uL (4.8-10.8)
[2022-06-27 07:11] LABS: PROTHROMBIN TIME 10.5 SECS (9.5-12.5)
--- NOTE | 2022-06-27 07:30 | NUR ---
Report received from LYUDMILA Wild for continuity of care. Patient in stable condition.
--- NOTE | 2022-06-27 07:45 | NUR ---
DR AVILA HERE AND SPOKE WITH PT. SAID PT IS OKAY TO DISCHARGE TODAY. PT IS AGREEABLE.
[2022-06-27 08:07] LABS: ALBUMIN 3.6 g/dL (3.4-4.8); CALCIUM 9.3 mg/dL (8.4-11.0); CREATININE 1.09 mg/dL (0.55-1.30); TOTAL BILIRUBIN 0.7 mg/dL (0.0-1.0)
--- NOTE | 2022-06-27 08:19 | NUR ---
PT CARE ENDORSED TO LYUDMILA ROMERO
[2022-06-27] MEDS: GABAPENTIN 300 MG CAPSULE PO SCH (08:50)
[2022-06-27] MEDS: busPIRone HCL 5 MG TABLET PO SCH (08:50)
[2022-06-27] MEDS: METOPROLOL TARTRATE 25 MG TABLET PO SCH (08:51)
[2022-06-27] MEDS: chlordiazePOXIDE HCL 25 MG CAPSULE PO SCH (08:52)
[2022-06-27] MEDS: APIXABAN 2.5 MG TABLET PO SCH (08:52)
[2022-06-27] MEDS: CYCLOBENZAPRINE HCL 10 MG TABLET (FLEXERIL) PO SCH (08:52)
[2022-06-27] MEDS: HYDROcodone/ACETAMIN 5-325 MG TAB (NORCO/ VICODIN) PO PRN (08:56)
[2022-06-27] MEDS ORDERED: MAGNESIUM OXIDE 400 MG TABLET PO SCH (09:00)
[2022-06-27] MEDS ORDERED: OMEPRAZOLE Non-Formulary 20 MG CAPSULE.DR PO SCH (09:00)
[2022-06-27] MEDS ORDERED: NICOTINE 21 MG/24 HR PATCH.TD24 TD SCH (09:00)
[2022-06-27] MEDS ORDERED: DULoxetine HCL 30 MG CAPSULE.DR (CYMBALTA) PO SCH (09:00)
[2022-06-27] MEDS ORDERED: THIAMINE HCL 100 MG TABLET PO SCH (09:00)
[2022-06-27] MEDS ORDERED: PANTOPRAZOLE SODIUM 40 MG TAB PO SCH (09:00)
[2022-06-27] MEDS ORDERED: THIAMINE HCL 100 MG PO SCH (09:00)
[2022-06-27] MEDS: BACITRACIN ZINC 15 GM TOPICAL OINTMENT TP SCH (10:12)
--- NOTE | 2022-06-27 12:38 | NUR ---
Dr. Marcano made aware of patient's fluctuating blood pressures. New orders noted and carried out.
--- NOTE | 2022-06-27 12:52 | NUR ---
Patient ready for discharge. All paperwork and belongings given for patient. Patient respiration even and unlabored. No c/o pain. Cardiac monitored taken off and returned. Patient is able to move as appropriate and change into regular clothes. Patient IV taken out. Wheelchaired patient out to front lobby where he can drive himself home.
--- NOTE | 2022-06-27 12:53 | NUR ---
Planisher PEELER OPERATOR wanted to see returning pt. who has a strong alcohol dependence. PEELER OPERATOR introduced self to pt who remembered her. PT. stated he has been sober for the past 37 days. PEELER OPERATOR stated she read in the ED notes pt. had just taken a drink prior to going to the ED. Pt. denied this and stated he just took a sip to see if he still hated the alcohol. Pt. added he has spent 30 days in a substance abuse program and found it to be helpful. PEELER OPERATOR offered pt. some resources but pt. declined and was getting irritable with applications support lead discharge planning assessment questions. Pt. stated he answered all these questions already and was done. PEELER OPERATOR thanked pt. for his time, provided him with her business card and will remain available as needed.
== END 2022-06-27 12:45 | disposition home or self-care (01) | DRG 310 ==
LOC: SED 23:18 → STU 06-26 01:36
PROVIDERS: ADMIT Internal Medicine; ATTEND Internal Medicine
DX: I48.20 Chronic atrial fibrillation, unspecified (principal); M16.12 Unilateral primary osteoarthritis, left hip; M47.9 Spondylosis, unspecified; N40.0 Benign prostatic hyperplasia without lower urinary tract symptoms; I10 Essential (primary) hypertension; F32.A Depression, unspecified; F41.9 Anxiety disorder, unspecified; G62.1 Alcoholic polyneuropathy; J44.9 Chronic obstructive pulmonary disease, unspecified; G89.4 Chronic pain syndrome; Z20.822 Contact with and (suspected) exposure to COVID-19; Z87.891 Personal history of nicotine dependence; Z79.891 Long term (current) use of opiate analgesic; Z79.899 Other long term (current) drug therapy; Z91.199 Patient's noncompliance with other medical treatment and regimen due to unspecified reason
CPT/HCPCS: 36415; 71045; 80053; 83605; 83880; 84484; 85025; 85610-TC; 87040; 93005; 96360; 99291; G0378; G0482; J2270

== ENCOUNTER 2022-07-07 02:43 | Emergency (ER) | payer OTHER ==
[~2022-07-07] VITALS: Ht 175.3 cm; Wt 70.3 kg
[~2022-07-07 02:43] MED LIST changes: -CEPH-548 PO; -CEPH250C PO; -CYCL10TA24 PO; -LOPE2CAP PO; -LORA-259 PO; -METH-634 PO
[2022-07-07 02:50] VITALS: BP_SYST 121
[2022-07-07] MEDS ORDERED: ONDANSETRON HCL 4 MG/2 ML VIAL IVP ONE (03:00)
[2022-07-07] MEDS ORDERED: NACL 0.9% 1,000 ML IV ONE (03:00)
[2022-07-07] MEDS ORDERED: THIAMINE HCL 100 MG TABLET PO ONE (03:00)
[2022-07-07 03:32] LABS: BASOPHILS # (AUTO) 0.1 K/uL (0.0-0.2); BASOPHILS % (AUTO) 0.4 % (0.0-2.0); EOSINOPHILS # (AUTO) 0.1 K/uL (0.0-0.4); EOSINOPHILS % (AUTO) 0.7 % (0.0-4.0); HEMATOCRIT 53.6 % (36-54); HEMOGLOBIN 17.8 g/dL (14.0-18.0); LYMPHOCYTES # (AUTO) 4.1 K/uL (1.0-5.5); LYMPHOCYTES % (AUTO) 24.4 % (20.5-51.5); MEAN CORPUSCULAR HEMOGLOBIN 32 pg (27-31); MEAN CORPUSCULAR HGB CONC 33 % (32-36); MEAN CORPUSCULAR VOLUME 95 fL (79.0-98.0); MONOCYTES # (AUTO) 0.8 K/uL (0.0-1.0); MONOCYTES % (AUTO) 4.5 % (1.7-9.3); NEUTROPHILS # (AUTO) 11.7 K/uL (1.8-7.7); PLATELET COUNT (AUTO) 299 K/uL (130-430); RED BLOOD CELL COUNT(AUTO) 5.67 MIL/uL (4.2-6.2); RED CELL DISTRIBUTION WIDTH 13.7 % (9.0-15.0); WHITE BLOOD COUNT (AUTO) 16.7 K/uL (4.8-10.8)
[2022-07-07 03:50] LABS: CALCIUM 9.5 mg/dL (8.4-11.0); CREATININE 1.08 mg/dL (0.55-1.30)
[2022-07-07 03:55] LABS: ALBUMIN 4.8 g/dL (3.4-4.8); TOTAL BILIRUBIN 0.5 mg/dL (0.0-1.0)
[2022-07-07] MEDS ORDERED: THIAMINE HCL 100 MG TABLET ONE (04:05)
[2022-07-07] MEDS ORDERED: DIPHENHYDRAMINE INJ 50 MG/ML VIAL ONE (04:15)
[2022-07-07] MEDS ORDERED: HALOPERIDOL LACTATE 5 MG/ML VIAL IM ONE (04:15)
[2022-07-07] MEDS ORDERED: HALOPERIDOL LACTATE 5 MG/ML VIAL ONE (04:15)
[2022-07-07] MEDS ORDERED: DIPHENHYDRAMINE INJ 50 MG/ML VIAL IM ONE (04:15)
[2022-07-07] MEDS ORDERED: LORA-259 PO (07:49)
[2022-07-07 08:05] VITALS: BP_SYST 134
[2022-07-08] MEDS ORDERED: LEVO-62 PO (15:01)
== END 2022-07-07 08:05 | disposition home or self-care (01) ==
LOC: SED 02:43
DX: F10.129 Alcohol abuse with intoxication, unspecified (principal); R41.82 Altered mental status, unspecified; R11.2 Nausea with vomiting, unspecified; J44.9 Chronic obstructive pulmonary disease, unspecified; Z79.899 Other long term (current) drug therapy; Y90.6 Blood alcohol level of 120-199 mg/100 ml
CPT/HCPCS: 99291; 96374; 70450; 71045; 96361; 80053; 83690; 85025; 36415; 93005; 76376; 96372; G0482; J1200; J1630; J2405; J7030

== ENCOUNTER 2022-07-08 11:42 | Emergency (ER) | payer OTHER ==
[~2022-07-08] VITALS: Ht 167.6 cm; Wt 79.4 kg
[~2022-07-08 11:42] MED LIST changes: +LORA-259 PO
[2022-07-08 12:10] VITALS: BP_SYST 137
--- NOTE | 2022-07-08 12:20 | NUR ---
ER DR. DHALIWAL EXAMINING PT
[2022-07-08] MEDS ORDERED: NACL 0.9% 2,000 ML IV ONE (12:30)
[2022-07-08] MEDS ORDERED: AZITHROMYCIN 500 MG in NS 250 ML IV ONE (12:30)
--- NOTE | 2022-07-08 12:30 | NUR ---
Placed in room 03 . Placed on awake overnight monitor, blood pressure machine and pulse oximeter. To gown for exam. Side rails up.
--- NOTE | 2022-07-08 13:01 | NUR ---
# 20 gauge angiocath placed to left lateral cubital. Use of asceptic technique. Opsite placed over site. Blood return noted. Blood for lab drawn from site. Flushed with 10 cc of normal saline. No evidence of infiltration noted. Patient tolerated well.
--- NOTE | 2022-07-08 13:02 | NUR ---
Blood drawn for lab specimen collected delivered to lab.
[2022-07-08] MEDS ORDERED: AZITHROMYCIN 500 MG/VIAL (ZITHROMAX) IV ONE (13:12)
[2022-07-08 13:39] LABS: BASOPHILS % (AUTO) 0.3 % (0.0-2.0); EOSINOPHILS % (AUTO) 0.1 % (0.0-4.0); HEMATOCRIT 45.3 % (36-54); HEMOGLOBIN 15.5 g/dL (14.0-18.0); LYMPHOCYTES # (AUTO) 1.9 K/uL (1.0-5.5); LYMPHOCYTES % (AUTO) 12.5 % (20.5-51.5); MEAN CORPUSCULAR HEMOGLOBIN 32 pg (27-31); MEAN CORPUSCULAR HGB CONC 34 % (32-36); MEAN CORPUSCULAR VOLUME 92 fL (79.0-98.0); MONOCYTES # (AUTO) 1.4 K/uL (0.0-1.0); NEUTROPHILS # (AUTO) 11.9 K/uL (1.8-7.7); NEUTROPHILS % (AUTO) 78.1 % (40.0-70.0); PLATELET COUNT (AUTO) 233 K/uL (130-430); RED BLOOD CELL COUNT(AUTO) 4.92 MIL/uL (4.2-6.2); RED CELL DISTRIBUTION WIDTH 12.6 % (9.0-15.0); WHITE BLOOD COUNT (AUTO) 15.2 K/uL (4.8-10.8)
--- NOTE | 2022-07-08 13:40 | NUR ---
PORTABLE XRAY AT THE BEDSIDE
[2022-07-08 13:50] LABS: CALCIUM 9.8 mg/dL (8.4-11.0); CREATININE 0.93 mg/dL (0.55-1.30)
[2022-07-08 13:55] LABS: ALBUMIN 4.1 g/dL (3.4-4.8); TOTAL BILIRUBIN 2.7 mg/dL (0.0-1.0)
[2022-07-08] MEDS ORDERED: methylPREDNISolone SOD SUCC/PF 62.5 MG/ML VIAL IVP ONE (14:30)
[2022-07-08] MEDS ORDERED: MAGNESIUM SULFATE 50 ML IV ONE (14:30)
--- NOTE | 2022-07-08 15:00 | NUR ---
Pt complains of difficulty breathing. Pt saturation 100% on room air. Pt is sitting with HOB up no appearance of distress.
[2022-07-08] MEDS ORDERED: LEVO-62 PO (15:01)
--- NOTE | 2022-07-08 15:10 | NUR ---
Swabbed for COVID & FLU. Sent to lab
[2022-07-08 16:00] VITALS: BP_SYST 139
--- NOTE | 2022-07-08 16:00 | NUR ---
Patient given written and verbal discharge instructions and verbalizes understanding. ER MD discussed with patient the results and treatment provided. Patient in stable condition. ID arm band removed. IV catheter removed intact and dressing applied, no active bleeding. Rx of LEVAQUIN given. Patient educated on pain management and to follow up with PMD. Pain Scale 0/10. Opportunity for questions provided and answered. Medication side effect fact sheet provided.
== END 2022-07-08 16:00 | disposition home or self-care (01) ==
LOC: SED 11:42
DX: R05.9 Cough, unspecified (principal); D72.829 Elevated white blood cell count, unspecified; R53.1 Weakness; R06.00 Dyspnea, unspecified; J44.9 Chronic obstructive pulmonary disease, unspecified; Z79.899 Other long term (current) drug therapy; Z20.822 Contact with and (suspected) exposure to COVID-19
CPT/HCPCS: 99285; 96365; 71045; 96361; 87426; 80053; 85025; 87040; 36415; 93005; 36600; 82803; 83605; 87804 ×2; J0456; J1956; J7030

== ENCOUNTER 2022-08-09 11:45 | Emergency (ER) | payer OTHER ==
[~2022-08-09] VITALS: Ht 167.6 cm; Wt 79.4 kg
[2022-08-09 11:45] VITALS: BP_SYST 133
[~2022-08-09 11:45] MED LIST changes: +LEVO-62 PO
[2022-08-09] MEDS ORDERED: MAG-AL HYDROX/SIMETH 30 ML UDC PO ONE (12:15)
[2022-08-09] MEDS ORDERED: DICYCLOMINE HCL 10 MG/5 ML SOLUTION PO ONE (12:15)
[2022-08-09] MEDS ORDERED: OXYCODONE/ACETAMINOPHEN 5-325 TABLET PO ONE (12:15)
[2022-08-09] MEDS ORDERED: METOPROLOL SUCCINATE 50 MG TAB.SR.24H (TOPROL XL) PO ONE (12:15)
[2022-08-09 12:37] LABS: BASOPHILS % (AUTO) 0.6 % (0.0-2.0); EOSINOPHILS # (AUTO) 0.1 K/uL (0.0-0.4); HEMATOCRIT 42.5 % (36-54); HEMOGLOBIN 14.6 g/dL (14.0-18.0); LYMPHOCYTES # (AUTO) 1.4 K/uL (1.0-5.5); LYMPHOCYTES % (AUTO) 16.1 % (20.5-51.5); MEAN CORPUSCULAR HEMOGLOBIN 32 pg (27-31); MEAN CORPUSCULAR HGB CONC 34 % (32-36); MEAN CORPUSCULAR VOLUME 94 fL (79.0-98.0); MONOCYTES # (AUTO) 0.7 K/uL (0.0-1.0); MONOCYTES % (AUTO) 8.2 % (1.7-9.3); NEUTROPHILS # (AUTO) 6.2 K/uL (1.8-7.7); NEUTROPHILS % (AUTO) 74.1 % (40.0-70.0); PLATELET COUNT (AUTO) 203 K/uL (130-430); RED BLOOD CELL COUNT(AUTO) 4.53 MIL/uL (4.2-6.2); RED CELL DISTRIBUTION WIDTH 13.3 % (9.0-15.0); WHITE BLOOD COUNT (AUTO) 8.4 K/uL (4.8-10.8)
[2022-08-09 12:48] LABS: CREATININE 1.07 mg/dL (0.55-1.30)
[2022-08-09 12:52] LABS: ALBUMIN 3.9 g/dL (3.4-4.8); TOTAL BILIRUBIN 0.4 mg/dL (0.0-1.0)
[2022-08-09] MEDS ORDERED: DICY10CA13 PO (13:19)
[2022-08-09 14:13] VITALS: BP_SYST 116
== END 2022-08-09 14:13 | disposition home or self-care (01) ==
LOC: SED 11:45
DX: A08.4 Viral intestinal infection, unspecified (principal); R11.2 Nausea with vomiting, unspecified; R19.7 Diarrhea, unspecified; R10.9 Unspecified abdominal pain; J44.9 Chronic obstructive pulmonary disease, unspecified; Z79.899 Other long term (current) drug therapy
CPT/HCPCS: 36415; 80053; 83690; 85025; 99283; 99284

== ENCOUNTER 2022-08-10 22:47 | Emergency (ER) | payer OTHER ==
[~2022-08-10] VITALS: Ht 167.6 cm; Wt 79.4 kg
[~2022-08-10 22:47] MED LIST changes: +DICY10CA13 PO
[2022-08-10 23:01] VITALS: BP_SYST 118
[2022-08-10] MEDS ORDERED: ONDANSETRON HCL 4 MG/2 ML VIAL IVP ONE (23:45)
[2022-08-10] MEDS ORDERED: KETOROLAC TROMETHAMINE 30 MG VIAL IVP ONE (23:45)
[2022-08-10] MEDS ORDERED: NACL 0.9% 1,000 ML IV ONE (23:45)
[2022-08-10 23:49] LABS: BASOPHILS # (AUTO) 0.1 K/uL (0.0-0.2); BASOPHILS % (AUTO) 0.5 % (0.0-2.0); EOSINOPHILS # (AUTO) 0.2 K/uL (0.0-0.4); HEMATOCRIT 40.5 % (36-54); HEMOGLOBIN 13.7 g/dL (14.0-18.0); LYMPHOCYTES # (AUTO) 2.7 K/uL (1.0-5.5); LYMPHOCYTES % (AUTO) 22.4 % (20.5-51.5); MEAN CORPUSCULAR HEMOGLOBIN 32 pg (27-31); MEAN CORPUSCULAR HGB CONC 34 % (32-36); MEAN CORPUSCULAR VOLUME 94 fL (79.0-98.0); MONOCYTES # (AUTO) 1.1 K/uL (0.0-1.0); MONOCYTES % (AUTO) 9.3 % (1.7-9.3); NEUTROPHILS % (AUTO) 65.8 % (40.0-70.0); PLATELET COUNT (AUTO) 216 K/uL (130-430); RED BLOOD CELL COUNT(AUTO) 4.31 MIL/uL (4.2-6.2); RED CELL DISTRIBUTION WIDTH 13.4 % (9.0-15.0); WHITE BLOOD COUNT (AUTO) 12.2 K/uL (4.8-10.8)
[2022-08-11 00:07] LABS: ALBUMIN 3.5 g/dL (3.4-4.8); CALCIUM 8.8 mg/dL (8.4-11.0); CREATININE 1.08 mg/dL (0.55-1.30); TOTAL BILIRUBIN 0.3 mg/dL (0.0-1.0)
[2022-08-11] MEDS ORDERED: ONDANSETRON HCL 4 MG/2 ML VIAL IVP ONE (01:00)
[2022-08-11] MEDS ORDERED: LIDOCAINE VISCOUS 2%, 15 ML UDC MM ONE (01:00)
[2022-08-11] MEDS ORDERED: MAG-AL HYDROX/SIMETH 30 ML UDC PO ONE (01:00)
[2022-08-11] MEDS ORDERED: MORPHINE 4 MG INJ. 4 MG/ML VIAL IVP ONE (01:45)
[2022-08-11 02:15] VITALS: BP_SYST 131
== END 2022-08-11 02:15 | disposition home or self-care (01) ==
LOC: SED 22:47
DX: F10.20 Alcohol dependence, uncomplicated (principal); R19.7 Diarrhea, unspecified; R10.84 Generalized abdominal pain; R11.2 Nausea with vomiting, unspecified; Z79.899 Other long term (current) drug therapy; Y90.6 Blood alcohol level of 120-199 mg/100 ml
CPT/HCPCS: 99284; 96374; 96375; 96361; 80053; 83690; 85025; 36415; 96376; G0482; J1885; J2405 ×2; J7030; J2001; J2270

== ENCOUNTER 2022-08-12 21:33 | Emergency (ER) | payer OTHER ==
--- NOTE | 2022-08-12 22:00 | NUR ---
no answer x1
--- NOTE | 2022-08-12 22:10 | NUR ---
no answer x 2
--- NOTE | 2022-08-12 22:20 | NUR ---
no answer x 3
== END 2022-08-12 22:30 | disposition left against medical advice (07) ==
LOC: SED 21:33
DX: R11.2 Nausea with vomiting, unspecified (principal); Z53.21 Procedure and treatment not carried out due to patient leaving prior to being seen by health care provider

== ENCOUNTER 2022-08-20 07:49 | Emergency (ER) | payer OTHER ==
[~2022-08-20] VITALS: Ht 167.6 cm; Wt 79.4 kg
[2022-08-20 08:00] VITALS: BP_SYST 154
--- NOTE | 2022-08-20 08:05 | NUR ---
Placed in room 3 . Placed on meter maker, blood pressure machine and pulse oximeter. To gown for exam. Side rails up. Report given to Carol COREAS.
--- NOTE | 2022-08-20 08:10 | NUR ---
DR CARRILLO IN ROOM FOR EXAM
--- NOTE | 2022-08-20 08:12 | NUR ---
PT BIB FRIEND FROM HOME C/O VOMITING AND ABD PAIN SINCE LAST NIGHT 08/19. PT HISTORY OF BROKEN HIP AND PANCREATITIS FROM ETH. PT PLACE ON MONITOR. RESTING COMFORTABLY SIDE RAILS UP.
[2022-08-20 08:23] LABS: BASOPHILS # (AUTO) 0.1 K/uL (0.0-0.2); BASOPHILS % (AUTO) 0.5 % (0.0-2.0); EOSINOPHILS # (AUTO) 0.3 K/uL (0.0-0.4); EOSINOPHILS % (AUTO) 2.6 % (0.0-4.0); HEMATOCRIT 44.8 % (36-54); HEMOGLOBIN 15.4 g/dL (14.0-18.0); LYMPHOCYTES # (AUTO) 2.7 K/uL (1.0-5.5); LYMPHOCYTES % (AUTO) 22.7 % (20.5-51.5); MEAN CORPUSCULAR HEMOGLOBIN 32 pg (27-31); MEAN CORPUSCULAR HGB CONC 35 % (32-36); MEAN CORPUSCULAR VOLUME 92 fL (79.0-98.0); MONOCYTES % (AUTO) 8.2 % (1.7-9.3); NEUTROPHILS # (AUTO) 7.9 K/uL (1.8-7.7); PLATELET COUNT (AUTO) 214 K/uL (130-430); RED BLOOD CELL COUNT(AUTO) 4.86 MIL/uL (4.2-6.2); RED CELL DISTRIBUTION WIDTH 13.8 % (9.0-15.0)
[2022-08-20 08:34] LABS: CALCIUM 8.5 mg/dL (8.4-11.0); CREATININE 0.94 mg/dL (0.55-1.30)
[2022-08-20 08:38] LABS: ALBUMIN 3.7 g/dL (3.4-4.8); TOTAL BILIRUBIN 0.7 mg/dL (0.0-1.0)
[2022-08-20] MEDS: NACL 0.9% 1,000 ML IV ONE (08:38)
[2022-08-20] MEDS: ONDANSETRON HCL 4 MG/2 ML VIAL IVP ONE (08:39)
[2022-08-20] MEDS: KETOROLAC TROMETHAMINE 30 MG VIAL IVP ONE (09:19)
[2022-08-20] MEDS: MAG HYDROX/AL HYDROX/SIMETH 30 ML, DICYCLOMINE HCL 20 MG, LIDOCAINE VISCOUS 2% 15ML (PO... PO ONE ×3 (09:26)
[2022-08-20] MEDS ORDERED: FAMO40TA71 PO (09:58)
[2022-08-20] MEDS ORDERED: TRAM50TA2 PO (09:58)
--- NOTE | 2022-08-20 10:06 | NUR ---
Patient given written and verbal discharge instructions and verbalizes understanding. ER MD discussed with patient the results and treatment provided. Patient in stable condition. ID arm band removed. IV catheter removed intact and dressing applied, no active bleeding. Rx of PEPCID, ULTRAM given. Patient educated on pain management and to follow up with PMD. Pain Scale . Opportunity for questions provided and answered. Medication side effect fact sheet provided.
[2022-08-20 11:15] VITALS: BP_SYST 140
[2022-08-20] MEDS ORDERED: METO-290 PO (22:22)
[2022-08-20] MEDS ORDERED: METOCLOPRAMIDE HCL 10 MG/2 ML VIAL ONE (22:46)
[2022-08-21] MEDS ORDERED: ONDA-8 TL (17:11)
== END 2022-08-20 10:06 | disposition home or self-care (01) ==
LOC: SED 07:49
DX: K29.20 Alcoholic gastritis without bleeding (principal); R11.10 Vomiting, unspecified; R10.9 Unspecified abdominal pain; J44.9 Chronic obstructive pulmonary disease, unspecified; Z79.899 Other long term (current) drug therapy
CPT/HCPCS: 99284; 96374; 96361; 96375; 80053; 83690; 85025; 36415; G0482; J2001; J1885; J2765; J2405; J7030

== ENCOUNTER 2022-08-20 12:11 | Emergency (ER) | payer OTHER ==
[~2022-08-20 12:11] MED LIST changes: +FAMO40TA71 PO; +TRAM50TA2 PO
[2022-08-20 14:56] VITALS: BP_SYST 130
--- NOTE | 2022-08-20 15:03 | NUR ---
Patient to ER bed 7 to gown for evaluation. Side rails up. Report given to DIANE COREAS.
--- NOTE | 2022-08-20 15:04 | NUR ---
ER at bedside examining patient.
--- NOTE | 2022-08-20 15:10 | NUR ---
PATIENT BROUGHT IN COMPLAINING NAUSEA AND VOMITING WITH GEN WEAK SINCE LAST NIGHT. DENIES ANY FEVER OR CHILLS, AND DIARHEA
[2022-08-20] MEDS ORDERED: ONDANSETRON HCL 4 MG/2 ML VIAL IVP ONE ×2 (15:15→16:00)
[2022-08-20] MEDS ORDERED: NACL 0.9% 1,000 ML IV ONE (15:15)
[2022-08-20] MEDS ORDERED: PANTOPRAZOLE SODIUM 40 MG/VIAL (PROTONIX) IVP ONE (15:15)
[2022-08-20] MEDS ORDERED: HYDROcodone/ACETAMIN 5-325 MG TAB (NORCO/ VICODIN) PO ONE (16:15)
[2022-08-20 17:50] VITALS: BP_SYST 135
--- NOTE | 2022-08-20 17:51 | NUR ---
Patient given written and verbal discharge instructions and verbalizes understanding. ER MD DR DHALIWAL discussed with patient the results and treatment provided. Patient in stable condition. ID arm band removed. IV catheter removed intact and dressing applied, no active bleeding. Patient educated on pain management and to follow up with PMD. Pain Scale 2/10. Opportunity for questions provided and answered. Medication side effect fact sheet provided.
[2022-08-20] MEDS ORDERED: METO-290 PO (22:22)
[2022-08-21] MEDS ORDERED: ONDA-8 TL (17:11)
== END 2022-08-20 17:51 | disposition home or self-care (01) ==
LOC: SED 12:11
DX: R11.10 Vomiting, unspecified (principal); F11.90 Opioid use, unspecified, uncomplicated; J44.9 Chronic obstructive pulmonary disease, unspecified; Z76.5 Malingerer [conscious simulation]; Z79.899 Other long term (current) drug therapy
CPT/HCPCS: 99284; 96374; 96361; 96375; J2405; C9113; J7030

== ENCOUNTER 2022-08-20 20:54 | Emergency (ER) | payer OTHER ==
[~2022-08-20] VITALS: Ht 167.6 cm; Wt 79.4 kg
[2022-08-20 21:16] VITALS: BP_SYST 143
--- NOTE | 2022-08-20 21:20 | NUR ---
Patient triaged and placed in waiting room. VSS and patient appears in no acute distress at this time. Accompanied by SELF, awaiting available bed, and MD notified of need for MSE.
--- NOTE | 2022-08-20 22:16 | NUR ---
DR. KRISHNAN WITH PATIENT IN WAITING ROOM FOR MSE.
[2022-08-20] MEDS ORDERED: METO-290 PO (22:22)
--- NOTE | 2022-08-20 22:25 | NUR ---
PT BIB SELF FROM HOME IN WHEELCHAIR. PT C/O VOMITING, LOWER ABD PAIN, AND GAS. PT RATES ABD PAIN /. PT'S THIRD VISIT TO ED TODAY. PT DESCRIBES VOMIT CLEAR. PT DENIES DIARRHEA. PT DENIES SOB AND CHEST PAIN. SAFETY MEASURES IN PLACE.
[2022-08-20] MEDS ORDERED: METOCLOPRAMIDE HCL 10 MG TABLET PO ONE (22:30)
[2022-08-20] MEDS ORDERED: METOCLOPRAMIDE HCL 10 MG/2 ML VIAL IM ONE (22:45)
--- NOTE | 2022-08-20 22:53 | NUR ---
Patient given written and verbal discharge instructions and verbalizes understanding. ER DR KRISHNAN discussed with patient the results and treatment provided. Patient in stable condition. ID arm band removed. Rx of REGLAN given. Patient educated on pain management and to follow up with PMD. Pain Scale 0/10. Opportunity for questions provided and answered. Medication side effect fact sheet provided.
[2022-08-20 22:56] VITALS: BP_SYST 138
[2022-08-21] MEDS ORDERED: ONDA-8 TL (17:11)
== END 2022-08-20 22:56 | disposition home or self-care (01) ==
LOC: SED 20:54
DX: R19.7 Diarrhea, unspecified (principal); R11.10 Vomiting, unspecified; R63.0 Anorexia; R03.0 Elevated blood-pressure reading, without diagnosis of hypertension; J44.9 Chronic obstructive pulmonary disease, unspecified; Z79.899 Other long term (current) drug therapy
CPT/HCPCS: 96372; 99283

== ENCOUNTER 2022-08-21 13:53 | Emergency (ER) | payer OTHER ==
[~2022-08-21] VITALS: Ht 167.6 cm; Wt 79.4 kg
[~2022-08-21 13:53] MED LIST changes: +METO-290 PO
[2022-08-21 14:11] VITALS: BP_SYST 106
[2022-08-21] MEDS ORDERED: NACL 0.9% 1,000 ML IV ONE (14:45)
[2022-08-21] MEDS ORDERED: PROCHLORPERAZINE EDISYLATE 10 MG/2 ML VIAL IVP ONE (14:45)
[2022-08-21 15:42] LABS: BASOPHILS % (AUTO) 0.3 % (0.0-2.0); EOSINOPHILS % (AUTO) 0.4 % (0.0-4.0); HEMATOCRIT 39.1 % (36-54); HEMOGLOBIN 13.4 g/dL (14.0-18.0); LYMPHOCYTES # (AUTO) 1.2 K/uL (1.0-5.5); LYMPHOCYTES % (AUTO) 9.8 % (20.5-51.5); MEAN CORPUSCULAR HEMOGLOBIN 32 pg (27-31); MEAN CORPUSCULAR HGB CONC 34 % (32-36); MEAN CORPUSCULAR VOLUME 93 fL (79.0-98.0); MONOCYTES # (AUTO) 0.8 K/uL (0.0-1.0); MONOCYTES % (AUTO) 6.7 % (1.7-9.3); NEUTROPHILS # (AUTO) 10.1 K/uL (1.8-7.7); NEUTROPHILS % (AUTO) 82.8 % (40.0-70.0); PLATELET COUNT (AUTO) 132 K/uL (130-430); RED BLOOD CELL COUNT(AUTO) 4.18 MIL/uL (4.2-6.2); RED CELL DISTRIBUTION WIDTH 13.5 % (9.0-15.0); WHITE BLOOD COUNT (AUTO) 12.1 K/uL (4.8-10.8)
[2022-08-21 15:54] LABS: CALCIUM 8.4 mg/dL (8.4-11.0); CREATININE 0.96 mg/dL (0.55-1.30)
[2022-08-21 15:59] LABS: ALBUMIN 3.6 g/dL (3.4-4.8); TOTAL BILIRUBIN 1.7 mg/dL (0.0-1.0)
[2022-08-21 16:24] LABS: BILIRUBIN,URINE NEGATIVE (NEGATIVE); BLOOD, URINE NEGATIVE (NEGATIVE); CLARITY/URINE CLEAR (CLEAR); COLOR,URINE YELLOW (YELLOW); GLUCOSE,URINE NEGATIVE (NEGATIVE); KETONES,URINE 1+ (NEGATIVE); LEUKOCYTE ESTERASE ,URINE NEGATIVE (NEGATIVE); NITRITE, URINE NEGATIVE (NEGATIVE); PROTEIN URINE NEGATIVE (NEGATIVE)
[2022-08-21] MEDS ORDERED: ONDANSETRON HCL 4 MG/2 ML VIAL IVP ONE (16:30)
[2022-08-21] MEDS ORDERED: ONDA-8 TL (17:11)
[2022-08-21 17:17] VITALS: BP_SYST 136
== END 2022-08-21 17:17 | disposition home or self-care (01) ==
LOC: SED 13:53
DX: A08.4 Viral intestinal infection, unspecified (principal); R11.2 Nausea with vomiting, unspecified; R19.7 Diarrhea, unspecified; M54.50 Low back pain, unspecified; J44.9 Chronic obstructive pulmonary disease, unspecified; Z79.899 Other long term (current) drug therapy
CPT/HCPCS: 99285; 74176; 96374; 96361; 96375; 80053; 83690; 85025; 36415; 76376; 81003; G0482; J2405; J0780; J7030

== ENCOUNTER 2022-10-09 15:22 | Emergency (ER) | payer OTHER ==
[~2022-10-09] VITALS: Ht 167.6 cm; Wt 81.6 kg
[~2022-10-09 15:22] MED LIST changes: +ONDA-8 TL
[2022-10-09 15:25] VITALS: BP_SYST 123
--- NOTE | 2022-10-09 15:29 | NUR ---
Patient triaged and placed in waiting room. VSS and patient appears in no acute distress at this time. Accompanied by SELF, awaiting available bed, and MD notified of need for MSE.
--- NOTE | 2022-10-09 15:30 | NUR ---
MD DR DHALIWAL WITH PT
--- NOTE | 2022-10-09 15:30 | NUR ---
PT HERE WITH MULTIPLE COMPLAINTS, ABD PAIN, ARM NUMBNESS, SOB, ETC. PT IS WELL KNOWN TO ER AND PT IS IN ER OFTEN. PT SPEAKING FULL SENTENCES WITH NO DISTRESS
--- NOTE | 2022-10-09 16:50 | NUR ---
PT WAITING IN ER WAITING ROOM I WHEELCHAIR, NO CHANGES
[2022-10-09 17:32] LABS: BASOPHILS # (AUTO) 0.1 K/uL (0.0-0.2); BASOPHILS % (AUTO) 0.4 % (0.0-2.0); EOSINOPHILS # (AUTO) 0.2 K/uL (0.0-0.4); EOSINOPHILS % (AUTO) 1.4 % (0.0-4.0); HEMATOCRIT 44.5 % (36-54); HEMOGLOBIN 15.1 g/dL (14.0-18.0); LYMPHOCYTES % (AUTO) 14.1 % (20.5-51.5); MEAN CORPUSCULAR HEMOGLOBIN 31 pg (27-31); MEAN CORPUSCULAR HGB CONC 34 % (32-36); MEAN CORPUSCULAR VOLUME 92 fL (79.0-98.0); MONOCYTES % (AUTO) 6.9 % (1.7-9.3); NEUTROPHILS # (AUTO) 10.8 K/uL (1.8-7.7); NEUTROPHILS % (AUTO) 77.2 % (40.0-70.0); PLATELET COUNT (AUTO) 171 K/uL (130-430); RED BLOOD CELL COUNT(AUTO) 4.85 MIL/uL (4.2-6.2); RED CELL DISTRIBUTION WIDTH 13.7 % (9.0-15.0)
[2022-10-09 17:45] LABS: ANION GAP 8 (5-15); CHLORIDE 99 mmol/L (98-107); CREATININE 1.16 mg/dL (0.55-1.30); GFR AFRICAN AMERICAN 82 mL/min (>90); GLUCOSE 107 mg/dL (70-99); UREA NITROGEN, BLOOD 21 mg/dL (8-21)
[2022-10-09 17:53] LABS: ALANINE AMINOTRANSFERASE 28 U/L (12-78); ALBUMIN 4.2 g/dL (3.4-4.8); ASPARTATE AMINOTRANSFERASE 25 U/L (10-37); TOTAL BILIRUBIN 1.1 mg/dL (0.0-1.0)
--- NOTE | 2022-10-09 18:00 | NUR ---
Patient given written and verbal discharge instructions and verbalizes understanding. ER MD DR DHALIWAL discussed with patient the results and treatment provided. Patient in stable condition. ID arm band removed. Patient educated on pain management and to follow up with PMD. Pain Scale 2/10. Opportunity for questions provided and answered. Medication side effect fact sheet provided.
[2022-10-09 19:10] VITALS: BP_SYST 135
== END 2022-10-09 19:10 | disposition home or self-care (01) ==
LOC: SED 15:22
DX: R19.7 Diarrhea, unspecified (principal); R10.9 Unspecified abdominal pain; R53.1 Weakness; J44.9 Chronic obstructive pulmonary disease, unspecified; Z79.899 Other long term (current) drug therapy
CPT/HCPCS: 36415; 80053; 84484; 85025; 99283

== ENCOUNTER 2022-10-20 11:04 | Inpatient (IN) | payer OTHER ==
[~2022-10-20] VITALS: Ht 167.6 cm; Wt 81.6 kg
[2022-10-20 11:12] VITALS: BP_SYST 128; PULSE 152; RESP 19; TEMP 98; O2SAT 91
[2022-10-20] MEDS ORDERED: FOLIC ACID 1 MG, THIAMINE HCL 100 MG, MAGNESIUM SULFATE 1 GM, MVI 10 ML in NACL 0.9% 1,... IV ONE (11:30)
[2022-10-20] MEDS ORDERED: NACL 0.9% 1,000 ML IV ONE (11:45)
[2022-10-20 12:10] LABS: BASOPHILS # (AUTO) 0.1 K/uL (0.0-0.2); BASOPHILS % (AUTO) 0.7 % (0.0-2.0); EOSINOPHILS # (AUTO) 0.2 K/uL (0.0-0.4); HEMATOCRIT 47.2 % (36-54); HEMOGLOBIN 15.7 g/dL (14.0-18.0); LYMPHOCYTES # (AUTO) 3.7 K/uL (1.0-5.5); LYMPHOCYTES % (AUTO) 23.1 % (20.5-51.5); MEAN CORPUSCULAR HEMOGLOBIN 31 pg (27-31); MEAN CORPUSCULAR HGB CONC 33 % (32-36); MEAN CORPUSCULAR VOLUME 92 fL (79.0-98.0); MONOCYTES # (AUTO) 1.4 K/uL (0.0-1.0); MONOCYTES % (AUTO) 8.7 % (1.7-9.3); NEUTROPHILS # (AUTO) 10.7 K/uL (1.8-7.7); NEUTROPHILS % (AUTO) 66.5 % (40.0-70.0); PLATELET COUNT (AUTO) 261 K/uL (130-430); RED BLOOD CELL COUNT(AUTO) 5.12 MIL/uL (4.2-6.2); RED CELL DISTRIBUTION WIDTH 13.9 % (9.0-15.0)
[2022-10-20 12:24] LABS: ALANINE AMINOTRANSFERASE 30 U/L (12-78); ANION GAP 19 (5-15); ASPARTATE AMINOTRANSFERASE 41 U/L (10-37); CALCIUM 8.7 mg/dL (8.4-11.0); CARBON DIOXIDE 21 mmol/L (23-29); CHLORIDE 98 mmol/L (98-107); CREATININE 0.92 mg/dL (0.55-1.30); GFR AFRICAN AMERICAN 107 mL/min (>90); GLUCOSE 90 mg/dL (70-99); SODIUM SERUM 138 mmol/L (136-145); TOTAL BILIRUBIN 0.9 mg/dL (0.0-1.0); TOTAL PROTEIN, SERUM 8.3 g/dL (6.4-8.3); UREA NITROGEN, BLOOD 11 mg/dL (8-21)
[2022-10-20 12:26] LABS: ALCOHOL, BLOOD 367 mg/dL (<10); SALICYLATE 5 mg/dL (3-30)
[2022-10-20 12:27] LABS: ACETAMINOPHEN < 1 ug/mL (1-30); GFR NON AFRICAN-AMERICAN 88 mL/min (>90)
[2022-10-20] MEDS ORDERED: FOLIC ACID 1 MG, MVI 10 ML in NACL 0.9% 1,000 ML IV ONE (12:30)
[2022-10-20] MEDS ORDERED: THIAMINE HCL 100 MG, MAGNESIUM SULFATE 1 GM in NS 100 ML IV ONE (12:30)
[2022-10-20 13:15] LABS: PHOSPHORUS 3.9 mg/dL (2.7-4.5)
[2022-10-20] MEDS ORDERED: cefTRIAXone 1 GM IVPB PREMIX 50 ML IV ONE (13:45)
[2022-10-20 14:12] LABS: BILIRUBIN,URINE NEGATIVE (NEGATIVE); BLOOD, URINE NEGATIVE (NEGATIVE); CLARITY/URINE CLEAR (CLEAR); COLOR,URINE YELLOW (YELLOW); GLUCOSE,URINE NEGATIVE (NEGATIVE); KETONES,URINE 1+ (NEGATIVE); LEUKOCYTE ESTERASE ,URINE NEGATIVE (NEGATIVE); NITRITE, URINE NEGATIVE (NEGATIVE); PROTEIN URINE NEGATIVE (NEGATIVE); UROBILINOGEN,URINE 0.2 (0.2-1.0)
[2022-10-20] MEDS ORDERED: MORPHINE 4 MG INJ. 4 MG/ML VIAL IVP ONE ×2 (14:30→16:15)
[2022-10-20 14:42] LABS: BARBITURATE, URINE NEGATIVE (NEG <=200); BENZODIAZEPINE, URINE NEGATIVE (NEG <=150); CANNABINOID, URINE NEGATIVE (NEG <=50); COCAINE, URINE NEGATIVE (NEG <=150); METHAMPHETAMINES SCREEN,URINE NEGATIVE (NEG <=500); OPIATE, URINE NEGATIVE (NEG <=100); PHENCYCLIDINE SCREEN,URINE NEGATIVE (NEG <=25); UR TRICYCLIC ANTIDEPRESSANTS NEGATIVE (NEG <=300); URINE AMPHETAMINE NEGATIVE (NEG <=500); URINE METHADONE NEGATIVE (NEG <=200); URINE OXYCODONE SCREEN NEGATIVE (NEG <=100); URINE PROPOXYPHENE SCREEN NEGATIVE (NEG <=300)
[2022-10-20] MEDS ORDERED: dilTIAZem HCL IVP 5 MG/ML VIAL IVP ONE (14:45)
[2022-10-20] MEDS ORDERED: DILTIAZEM HCL 60 MG TABLET PO ONE (15:00)
[2022-10-20] MEDS ORDERED: METOPROLOL TARTRATE 5 MG/5 ML VIAL IVP ONE ×2 (16:30→22:15)
[2022-10-20 17:55] LABS: THYROID STIMULATING HORMONE 1.48 uIu/mL (0.36-3.74)
[2022-10-20] MEDS: NACL 0.9% 1,000 ML IV SCH (18:07)
[2022-10-20] MEDS ORDERED: ACETAMINOPHEN 500 MG TABLET PO ONE (20:30)
[2022-10-20] MEDS ORDERED: METOPROLOL TARTRATE 25 MG TABLET ONE (20:44)
[2022-10-20] MEDS ORDERED: METOPROLOL TARTRATE 5 MG/5 ML VIAL ONE (20:45)
[2022-10-20] MEDS ORDERED: METOPROLOL SUCCINATE 50 MG TAB.SR.24H (TOPROL XL) PO ONE (22:15)
[2022-10-20] MEDS ORDERED: NALOXONE HCL 0.4 MG/ML AMP (NARCAN) IVP PRN (23:15)
[2022-10-20 23:30] VITALS: BP_SYST 117; PULSE 81; RESP 16; TEMP 96.8; O2SAT 98
[2022-10-20] MEDS: ONDANSETRON HCL 4 MG/2 ML VIAL IVP PRN (23:50)
[2022-10-20] MEDS: MORPHINE 2 MG/ML INJ. SYRINGE IVP PRN (23:50)
[2022-10-21] MEDS: NACL 0.9% 1,000 ML IV SCH ×3 (00:01→14:45)
[2022-10-21 01:04] VITALS: BP_SYST 117; PULSE 81; RESP 14; TEMP 96.8; O2SAT 94
[2022-10-21 02:48] LABS: BASOPHILS # (AUTO) 0.1 K/uL (0.0-0.2); BASOPHILS % (AUTO) 0.6 % (0.0-2.0); EOSINOPHILS # (AUTO) 0.1 K/uL (0.0-0.4); EOSINOPHILS % (AUTO) 0.7 % (0.0-4.0); HEMOGLOBIN 14.2 g/dL (14.0-18.0); LYMPHOCYTES # (AUTO) 1.9 K/uL (1.0-5.5); LYMPHOCYTES % (AUTO) 12.7 % (20.5-51.5); MEAN CORPUSCULAR HEMOGLOBIN 30 pg (27-31); MEAN CORPUSCULAR HGB CONC 34 % (32-36); MEAN CORPUSCULAR VOLUME 90 fL (79.0-98.0); MONOCYTES # (AUTO) 1.3 K/uL (0.0-1.0); NEUTROPHILS # (AUTO) 11.3 K/uL (1.8-7.7); PLATELET COUNT (AUTO) 245 K/uL (130-430); RED BLOOD CELL COUNT(AUTO) 4.66 MIL/uL (4.2-6.2); RED CELL DISTRIBUTION WIDTH 13.8 % (9.0-15.0); WHITE BLOOD COUNT (AUTO) 14.6 K/uL (4.8-10.8)
[2022-10-21 03:11] LABS: ALBUMIN 3.3 g/dL (3.4-4.8); CALCIUM 8.1 mg/dL (8.4-11.0); CREATININE 0.97 mg/dL (0.55-1.30); POTASSIUM 4.4 mmol/L (3.5-5.1); TOTAL PROTEIN, SERUM 6.9 g/dL (6.4-8.3)
[2022-10-21] MEDS: MORPHINE 2 MG/ML INJ. SYRINGE IVP PRN ×4 (04:17→20:26)
[2022-10-21] MEDS: ONDANSETRON HCL 4 MG/2 ML VIAL IVP PRN ×3 (04:17→20:23)
[2022-10-21] MEDS ORDERED: NALOXONE HCL 0.4 MG/ML AMP (NARCAN) IVP PRN (08:15)
[2022-10-21] MEDS: FOLIC ACID 1 MG TABLET PO SCH (11:20)
[2022-10-21] MEDS: THIAMINE HCL 100 MG TABLET PO SCH (11:21)
[2022-10-21] MEDS: METOPROLOL SUCCINATE 50 MG TAB.SR.24H (TOPROL XL) PO SCH (11:21)
[2022-10-21 11:36] VITALS: BP_SYST 124; PULSE 63; RESP 17; TEMP 98.2; O2SAT 96
[2022-10-21 16:51] VITALS: BP_SYST 128; PULSE 61; RESP 17; TEMP 97.9; O2SAT 94
[2022-10-21 20:00] VITALS: BP_SYST 134; PULSE 78; RESP 20; TEMP 98.4; O2SAT 96
[2022-10-21 20:30] VITALS: O2SAT 98
[2022-10-22 00:01] VITALS: BP_SYST 134; PULSE 64; RESP 20
[2022-10-22] MEDS: ONDANSETRON HCL 4 MG/2 ML VIAL IVP PRN ×5 (00:29→20:37)
[2022-10-22] MEDS: MORPHINE 2 MG/ML INJ. SYRINGE IVP PRN ×5 (00:30→20:42)
[2022-10-22] MEDS: NACL 0.9% 1,000 ML IV SCH ×4 (01:15→23:40)
[2022-10-22] MEDS ORDERED: chlordiazePOXIDE HCL 25 MG CAPSULE ONE ×2 (02:03→23:27)
[2022-10-22 08:00] VITALS: BP_SYST 113; BP_SYST 118; PULSE 65; PULSE 70; RESP 16; TEMP 96.8; O2SAT 100; O2SAT 97
[2022-10-22] MEDS: FOLIC ACID 1 MG TABLET PO SCH (11:13)
[2022-10-22] MEDS: METOPROLOL SUCCINATE 50 MG TAB.SR.24H (TOPROL XL) PO SCH (11:13)
[2022-10-22] MEDS: THIAMINE HCL 100 MG TABLET PO SCH (11:13)
[2022-10-22 12:23] VITALS: BP_SYST 104; PULSE 64; RESP 14; TEMP 97.7; O2SAT 94
[2022-10-22 15:26] VITALS: BP_SYST 113; PULSE 75; RESP 16; TEMP 97.1; O2SAT 98
[2022-10-22 17:31] VITALS: BP_SYST 111; PULSE 69; RESP 18; TEMP 98.4; O2SAT 96
[2022-10-22 20:00] VITALS: BP_SYST 124; PULSE 69; RESP 18; TEMP 97.8; O2SAT 98
[2022-10-23] VITALS (8 sets, daily range): BP systolic 89–122; PULSE 58–78; RESP 17–18; TEMP 97.3–98.9; O2SAT 95–98
[2022-10-23] MEDS: ONDANSETRON HCL 4 MG/2 ML VIAL IVP PRN ×5 (01:36→17:51)
[2022-10-23] MEDS: MORPHINE 2 MG/ML INJ. SYRINGE IVP PRN ×4 (01:37→14:11)
[2022-10-23 06:20] LABS: BASOPHILS % (AUTO) 0.5 % (0.0-2.0); EOSINOPHILS # (AUTO) 0.3 K/uL (0.0-0.4); HEMATOCRIT 37.9 % (36-54); LYMPHOCYTES # (AUTO) 1.7 K/uL (1.0-5.5); LYMPHOCYTES % (AUTO) 19.1 % (20.5-51.5); MEAN CORPUSCULAR HEMOGLOBIN 31 pg (27-31); MEAN CORPUSCULAR HGB CONC 34 % (32-36); MEAN CORPUSCULAR VOLUME 91 fL (79.0-98.0); MONOCYTES # (AUTO) 0.7 K/uL (0.0-1.0); MONOCYTES % (AUTO) 7.5 % (1.7-9.3); NEUTROPHILS # (AUTO) 6.2 K/uL (1.8-7.7); NEUTROPHILS % (AUTO) 69.9 % (40.0-70.0); PLATELET COUNT (AUTO) 141 K/uL (130-430); RED BLOOD CELL COUNT(AUTO) 4.17 MIL/uL (4.2-6.2); RED CELL DISTRIBUTION WIDTH 13.5 % (9.0-15.0); WHITE BLOOD COUNT (AUTO) 8.9 K/uL (4.8-10.8)
[2022-10-23 06:37] LABS: CREATININE 0.88 mg/dL (0.55-1.30); POTASSIUM 3.6 mmol/L (3.5-5.1)
[2022-10-23] MEDS: NACL 0.9% 1,000 ML IV SCH ×2 (08:23→14:10)
[2022-10-23] MEDS: METOPROLOL SUCCINATE 50 MG TAB.SR.24H (TOPROL XL) PO SCH (09:00)
[2022-10-23] MEDS: FOLIC ACID 1 MG TABLET PO SCH (09:07)
[2022-10-23] MEDS: THIAMINE HCL 100 MG TABLET PO SCH (09:07)
[2022-10-23] MEDS: HYDROcodone/ACETAMIN 5-325 MG TAB (NORCO/ VICODIN) PO PRN ×2 (09:08→17:51)
[2022-10-23] MEDS ORDERED: chlordiazePOXIDE HCL 25 MG CAPSULE PO SCH (21:00)
[2022-10-24] MEDS ORDERED: NICOTINE 7 MG/24 HR PATCH.TD24 TD SCH (09:00)
== END 2022-10-23 18:25 | disposition home health service (06) | DRG 309 ==
LOC: SED 11:04 → STU 17:09 → SMU 10-23 10:00
PROVIDERS: ADMIT Internal Medicine; ATTEND Internal Medicine
DX: I48.0 Paroxysmal atrial fibrillation (principal); E87.20 Acidosis, unspecified; R65.10 Systemic inflammatory response syndrome (SIRS) of non-infectious origin without acute organ dysfunction; E86.0 Dehydration; M16.12 Unilateral primary osteoarthritis, left hip; E78.00 Pure hypercholesterolemia, unspecified; F10.129 Alcohol abuse with intoxication, unspecified; G89.4 Chronic pain syndrome; J44.9 Chronic obstructive pulmonary disease, unspecified; Y90.9 Presence of alcohol in blood, level not specified; Z79.2 Long term (current) use of antibiotics; Z79.899 Other long term (current) drug therapy; Z95.0 Presence of cardiac pacemaker; Z87.891 Personal history of nicotine dependence
CPT/HCPCS: 36415; 71045; 73030; 80048; 80053; 80061; 80307; 81003; 83605; 83735; 83880; 84100; 84443; 84484; 85025; 85379; 87040; 87086; 93005; 96365; 96367; 99285; G0378; G0480; G0481; G0482; J0696; J1956; J2270; J2405; J3411; J3475; J3490; J7030

== ENCOUNTER 2022-11-27 10:39 | Emergency (ER) | payer OTHER ==
[~2022-11-27] VITALS: Ht 172.7 cm; Wt 63.5 kg
[2022-11-27 10:59] VITALS: BP_SYST 113; PULSE 139; RESP 20; TEMP 98.1; O2SAT 98
[2022-11-27] MEDS ORDERED: NACL 0.9% 1,000 ML IV ONE (11:30)
[2022-11-27] MEDS ORDERED: MORPHINE 4 MG INJ. 4 MG/ML VIAL IVP ONE ×2 (11:30→13:15)
[2022-11-27] MEDS ORDERED: ONDANSETRON HCL 4 MG/2 ML VIAL IVP ONE (11:30)
[2022-11-27 11:41] LABS: ANION GAP 11 (5-15); CALCIUM 9.5 mg/dL (8.4-11.0); CHLORIDE 102 mmol/L (98-107); GFR AFRICAN AMERICAN 87 mL/min (>90); GLUCOSE 119 mg/dL (74-106); PROTHROMBIN TIME 10.6 SECS (9.5-12.5); UREA NITROGEN, BLOOD 18 mg/dL (8-21)
[2022-11-27 11:45] LABS: ALANINE AMINOTRANSFERASE 23 U/L (12-78); ALCOHOL, BLOOD < 3 mg/dL (<10); ASPARTATE AMINOTRANSFERASE 23 U/L (10-37); LIPASE 224 U/L (73-393); TOTAL BILIRUBIN 0.9 mg/dL (0.0-1.0)
[2022-11-27 11:47] LABS: BASOPHILS % (AUTO) 0.3 % (0.0-2.0); EOSINOPHILS # (AUTO) 0.1 K/uL (0.0-0.4); EOSINOPHILS % (AUTO) 0.9 % (0.0-4.0); HEMATOCRIT 48.2 % (36-54); HEMOGLOBIN 16.2 g/dL (14.0-18.0); LYMPHOCYTES # (AUTO) 1.7 K/uL (1.0-5.5); LYMPHOCYTES % (AUTO) 11.6 % (20.5-51.5); MEAN CORPUSCULAR HEMOGLOBIN 30 pg (27-31); MEAN CORPUSCULAR HGB CONC 34 % (32-36); MEAN CORPUSCULAR VOLUME 90 fL (79.0-98.0); MONOCYTES % (AUTO) 7.1 % (1.7-9.3); NEUTROPHILS # (AUTO) 11.8 K/uL (1.8-7.7); NEUTROPHILS % (AUTO) 80.1 % (40.0-70.0); PLATELET COUNT (AUTO) 204 K/uL (130-430); RED BLOOD CELL COUNT(AUTO) 5.37 MIL/uL (4.2-6.2); RED CELL DISTRIBUTION WIDTH 14.1 % (9.0-15.0); WHITE BLOOD COUNT (AUTO) 14.7 K/uL (4.8-10.8)
[2022-11-27] MEDS ORDERED: MAG HYDROX/AL HYDROX/SIMETH 30 ML, DICYCLOMINE HCL 20 MG, LIDOCAINE VISCOUS 2% 15ML (PO... PO ONE ×3 (13:15)
[2022-11-27] MEDS ORDERED: FAMOTIDINE PF 20 MG/2 ML VIAL IVP ONE (13:15)
[2022-11-27 13:18] LABS: CLARITY/URINE SLIGHTLY HAZY (CLEAR); COLOR,URINE YELLOW (YELLOW)
[2022-11-27 13:19] LABS: BILIRUBIN,URINE NEGATIVE (NEGATIVE); BLOOD, URINE NEGATIVE (NEGATIVE); GLUCOSE,URINE NEGATIVE (NEGATIVE); KETONES,URINE 1+ (NEGATIVE); LEUKOCYTE ESTERASE ,URINE NEGATIVE (NEGATIVE); NITRITE, URINE NEGATIVE (NEGATIVE); PROTEIN URINE NEGATIVE (NEGATIVE); UROBILINOGEN,URINE 0.2 (0.2-1.0)
[2022-11-27 13:39] LABS: BARBITURATE, URINE NEGATIVE (NEG <=200); BENZODIAZEPINE, URINE NEGATIVE (NEG <=150); CANNABINOID, URINE NEGATIVE (NEG <=50); COCAINE, URINE NEGATIVE (NEG <=150); METHAMPHETAMINES SCREEN,URINE NEGATIVE (NEG <=500); OPIATE, URINE POSITIVE (NEG <=100); PHENCYCLIDINE SCREEN,URINE NEGATIVE (NEG <=25); UR TRICYCLIC ANTIDEPRESSANTS NEGATIVE (NEG <=300); URINE AMPHETAMINE NEGATIVE (NEG <=500); URINE METHADONE NEGATIVE (NEG <=200); URINE OXYCODONE SCREEN NEGATIVE (NEG <=100); URINE PROPOXYPHENE SCREEN NEGATIVE (NEG <=300)
[2022-11-27] MEDS ORDERED: DICYCLOMINE HCL 10 MG/5 ML SOLUTION ONE (14:06)
[2022-11-27] MEDS ORDERED: MAG-AL HYDROX/SIMETH 30 ML UDC ONE (14:06)
[2022-11-27 16:13] VITALS: BP_SYST 127; PULSE 68; RESP 18; TEMP 98.7; O2SAT 97
== END 2022-11-27 15:47 | disposition home or self-care (01) ==
LOC: SED 10:39
DX: K29.70 Gastritis, unspecified, without bleeding (principal); G89.29 Other chronic pain; R10.13 Epigastric pain; R11.2 Nausea with vomiting, unspecified; R19.7 Diarrhea, unspecified; J44.9 Chronic obstructive pulmonary disease, unspecified; K21.9 Gastro-esophageal reflux disease without esophagitis; Z79.899 Other long term (current) drug therapy
CPT/HCPCS: 99285; 74176; 96374; 71045; 96375; 80307; 80053; 83690; 85025; 85610; 85730; 87040; 87086; 84484; 36415; 93005; 76376; 96376; 83605; 81003; J3490; J2405; J2270; G0482

== ENCOUNTER 2022-12-10 11:48 | Inpatient (IN) | payer OTHER ==
[~2022-12-10] VITALS: Ht 167.6 cm; Wt 81.6 kg
[2022-12-10 12:26] VITALS: BP_SYST 141; PULSE 156; RESP 18; TEMP 97; O2SAT 96
[2022-12-10] MEDS ORDERED: ONDANSETRON HCL 4 MG/2 ML VIAL IVP ONE (13:15)
[2022-12-10] MEDS ORDERED: METOPROLOL TARTRATE 5 MG/5 ML VIAL IVP ONE (13:15)
[2022-12-10] MEDS ORDERED: fentaNYL CITRATE/PF 100 MCG/2 ML AMP IVP ONE (13:15)
[2022-12-10 13:38] LABS: BASOPHILS # (AUTO) 0.1 K/uL (0.0-0.2); BASOPHILS % (AUTO) 0.7 % (0.0-2.0); EOSINOPHILS % (AUTO) 0.2 % (0.0-4.0); HEMATOCRIT 50.8 % (36-54); MEAN CORPUSCULAR HEMOGLOBIN 30 pg (27-31); MEAN CORPUSCULAR HGB CONC 34 % (32-36); MEAN CORPUSCULAR VOLUME 89 fL (79.0-98.0); MONOCYTES # (AUTO) 1.1 K/uL (0.0-1.0); MONOCYTES % (AUTO) 8.1 % (1.7-9.3); NEUTROPHILS # (AUTO) 10.1 K/uL (1.8-7.7); PLATELET COUNT (AUTO) 252 K/uL (130-430); RED BLOOD CELL COUNT(AUTO) 5.68 MIL/uL (4.2-6.2); RED CELL DISTRIBUTION WIDTH 14.2 % (9.0-15.0); WHITE BLOOD COUNT (AUTO) 13.2 K/uL (4.8-10.8)
[2022-12-10 14:03] LABS: ANION GAP 25 (5-15); CALCIUM 8.6 mg/dL (8.4-11.0); CARBON DIOXIDE 17 mmol/L (23-29); CHLORIDE 99 mmol/L (98-107); CREATININE 1.24 mg/dL (0.55-1.30); GFR AFRICAN AMERICAN 76 mL/min (>90); GLUCOSE 72 mg/dL (74-106); POTASSIUM 4.4 mmol/L (3.5-5.1); SODIUM SERUM 141 mmol/L (136-145); UREA NITROGEN, BLOOD 22 mg/dL (8-21)
[2022-12-10 14:09] LABS: ALANINE AMINOTRANSFERASE 17 U/L (12-78); ALBUMIN 4.2 g/dL (3.4-4.8); ALCOHOL, BLOOD 129 mg/dL (<10); ASPARTATE AMINOTRANSFERASE 27 U/L (10-37); LIPASE 183 U/L (73-393); TOTAL BILIRUBIN 0.8 mg/dL (0.0-1.0); TOTAL PROTEIN, SERUM 8.3 g/dL (6.4-8.3)
[2022-12-10 14:12] LABS: GFR NON AFRICAN-AMERICAN 63 mL/min (>90)
[2022-12-10] MEDS ORDERED: NACL 0.9% 1,000 ML IV ONE (14:15)
[2022-12-10] MEDS ORDERED: dilTIAZem HCL IVP 5 MG/ML VIAL IVP ONE (14:15)
[2022-12-10] MEDS ORDERED: MAGNESIUM SULFATE 50 ML IV PRN (15:00)
[2022-12-10] MEDS ORDERED: DOCUSATE SODIUM 100 MG CAPSULE PO PRN (15:00)
[2022-12-10] MEDS ORDERED: ZOLPIDEM TARTRATE 5 MG TABLET PO PRN (15:00)
[2022-12-10] MEDS ORDERED: ONDANSETRON HCL 4 MG/2 ML VIAL IVP PRN (15:00)
[2022-12-10] MEDS ORDERED: POTASSIUM CHLORIDE 20 MEQ TAB.PRT.SR PO PRN (15:00)
[2022-12-10] MEDS ORDERED: ACETAMINOPHEN 325 MG TABLET PO PRN ×2 (15:00)
[2022-12-10] MEDS ORDERED: MUPIROCIN 2% TOPICAL OINTMENT 22 GM NS PRN (15:00)
[2022-12-10] MEDS ORDERED: MORPHINE 2 MG/ML INJ. SYRINGE IVP PRN (15:00)
[2022-12-10] MEDS ORDERED: FOLIC ACID 1 MG, THIAMINE HCL 100 MG, MAGNESIUM SULFATE 1 GM, MVI 10 ML in NACL 0.9% 1,... IV ONE (15:00)
[2022-12-10] MEDS ORDERED: THIAMINE HCL 100 MG, MAGNESIUM SULFATE 1 GM in NS 100 ML IV ONE (16:15)
[2022-12-10] MEDS ORDERED: FOLIC ACID 1 MG, MVI 10 ML in NACL 0.9% 1,000 ML IV ONE (16:15)
[2022-12-10] MEDS: dilTIAZem HCL IVP 5 MG/ML VIAL IVP PRN ×2 (16:19→22:23)
[2022-12-10] MEDS: MORPHINE 2 MG/ML INJ. SYRINGE IVP PRN ×2 (16:35→20:38)
[2022-12-10] MEDS: chlordiazePOXIDE HCL 25 MG CAPSULE PO SCH ×2 (17:23→20:39)
[2022-12-10 17:27] VITALS: BP_SYST 120; PULSE 155; RESP 20; TEMP 98; O2SAT 94
[2022-12-10] MEDS: LORazepam 2 MG/ML VIAL IVP PRN (18:02)
[2022-12-10] MEDS ORDERED: NICOTINE 14 MG/24 HR PATCH.TD24 TD ONE (18:30)
[2022-12-10] MEDS ORDERED: NACL 0.9% 1,000 ML IV SCH (20:00)
[2022-12-10] MEDS: METOPROLOL TARTRATE 50 MG TABLET PO SCH (20:37)
[2022-12-10] MEDS: busPIRone HCL 5 MG TABLET PO SCH (20:38)
[2022-12-10] MEDS: GABAPENTIN 300 MG CAPSULE PO SCH (20:38)
[2022-12-10] MEDS: APIXABAN 2.5 MG TABLET PO SCH (20:41)
[2022-12-10] MEDS ORDERED: TOPIRAMATE 25 MG TABLET(TOPAMAX) PO SCH (21:00)
[2022-12-10] MEDS ORDERED: QUEtiapine FUMARATE 25 MG TABLET PO SCH (21:00)
[2022-12-10 22:59] VITALS: BP_SYST 85; PULSE 82
[2022-12-10 23:09] VITALS: BP_SYST 89; PULSE 83
[2022-12-11] VITALS (7 sets, daily range): BP systolic 93–105; PULSE 82–86; RESP 18–20; TEMP 97.3–98.3; O2SAT 95–100
[2022-12-11] MEDS: MORPHINE 2 MG/ML INJ. SYRINGE IVP PRN ×3 (01:34→11:46)
[2022-12-11] MEDS: LORazepam 2 MG/ML VIAL IVP PRN (04:32)
[2022-12-11 06:43] LABS: BASOPHILS % (AUTO) 0.4 % (0.0-2.0); EOSINOPHILS # (AUTO) 0.1 K/uL (0.0-0.4); EOSINOPHILS % (AUTO) 1.3 % (0.0-4.0); HEMATOCRIT 38.8 % (36-54); HEMOGLOBIN 13.4 g/dL (14.0-18.0); LYMPHOCYTES # (AUTO) 2.4 K/uL (1.0-5.5); LYMPHOCYTES % (AUTO) 27.6 % (20.5-51.5); MEAN CORPUSCULAR HEMOGLOBIN 31 pg (27-31); MEAN CORPUSCULAR HGB CONC 35 % (32-36); MEAN CORPUSCULAR VOLUME 89 fL (79.0-98.0); MONOCYTES # (AUTO) 1.2 K/uL (0.0-1.0); MONOCYTES % (AUTO) 13.7 % (1.7-9.3); PLATELET COUNT (AUTO) 160 K/uL (130-430); RED BLOOD CELL COUNT(AUTO) 4.35 MIL/uL (4.2-6.2); WHITE BLOOD COUNT (AUTO) 8.7 K/uL (4.8-10.8)
[2022-12-11 07:30] LABS: CALCIUM 7.7 mg/dL (8.4-11.0); CREATININE 1.03 mg/dL (0.55-1.30); POTASSIUM 3.9 mmol/L (3.5-5.1)
[2022-12-11] MEDS: METOPROLOL TARTRATE 50 MG TABLET PO SCH (09:00)
[2022-12-11] MEDS ORDERED: NICOTINE 14 MG/24 HR PATCH.TD24 TD SCH (09:00)
[2022-12-11] MEDS ORDERED: THIAMINE HCL 100 MG TABLET PO SCH (09:00)
[2022-12-11] MEDS: APIXABAN 2.5 MG TABLET PO SCH (09:00)
[2022-12-11] MEDS ORDERED: DULoxetine HCL 30 MG CAPSULE.DR (CYMBALTA) PO SCH (09:00)
[2022-12-11] MEDS: chlordiazePOXIDE HCL 25 MG CAPSULE PO SCH (09:30)
[2022-12-11] MEDS: busPIRone HCL 5 MG TABLET PO SCH (09:31)
[2022-12-11] MEDS: GABAPENTIN 300 MG CAPSULE PO SCH (09:43)
== END 2022-12-11 14:05 | disposition home or self-care (01) | DRG 310 ==
LOC: SED 11:48 → STU 14:43
PROVIDERS: ADMIT General Practice; ATTEND General Practice
DX: I48.0 Paroxysmal atrial fibrillation (principal); F10.10 Alcohol abuse, uncomplicated; I48.92 Unspecified atrial flutter; I10 Essential (primary) hypertension; F41.9 Anxiety disorder, unspecified; F17.200 Nicotine dependence, unspecified, uncomplicated; D72.829 Elevated white blood cell count, unspecified; G89.29 Other chronic pain; K74.60 Unspecified cirrhosis of liver; F32.A Depression, unspecified; G47.33 Obstructive sleep apnea (adult) (pediatric); R00.1 Bradycardia, unspecified; K21.9 Gastro-esophageal reflux disease without esophagitis; Y90.9 Presence of alcohol in blood, level not specified; M16.0 Bilateral primary osteoarthritis of hip; G62.9 Polyneuropathy, unspecified; J44.9 Chronic obstructive pulmonary disease, unspecified; Z95.0 Presence of cardiac pacemaker; Z79.899 Other long term (current) drug therapy
CPT/HCPCS: 36415; 71045; 80048; 80053; 83037; 83690; 83735; 83880; 84484; 85025; 93005; 96374; 96375; 99285; G0378; G0482; J2060; J2270; J2405; J3010; J3411; J3475; J3490; J7030

== ENCOUNTER 2023-01-06 07:45 | Emergency (ER) | payer OTHER ==
[~2023-01-06] VITALS: Ht 170.2 cm; Wt 79.4 kg
[2023-01-06 07:45] VITALS: BP_SYST 114; PULSE 99; RESP 16; TEMP 97.1; O2SAT 96
[~2023-01-06 07:45] MED LIST changes: -APIX5TAB4 PO
[2023-01-06] MEDS ORDERED: NACL 0.9% 1,000 ML IV ONE (08:15)
[2023-01-06] MEDS ORDERED: ONDANSETRON HCL 4 MG/2 ML VIAL IVP ONE (08:15)
[2023-01-06] MEDS ORDERED: MORPHINE 4 MG INJ. 4 MG/ML VIAL IVP ONE (08:15)
[2023-01-06 08:44] LABS: BASOPHILS # (AUTO) 0.1 K/uL (0.0-0.2); EOSINOPHILS # (AUTO) 0.2 K/uL (0.0-0.4); EOSINOPHILS % (AUTO) 1.6 % (0.0-4.0); LYMPHOCYTES # (AUTO) 1.9 K/uL (1.0-5.5); LYMPHOCYTES % (AUTO) 15.3 % (20.5-51.5); MEAN CORPUSCULAR HEMOGLOBIN 30 pg (27-31); MEAN CORPUSCULAR HGB CONC 33 % (32-36); MEAN CORPUSCULAR VOLUME 90 fL (79.0-98.0); MONOCYTES # (AUTO) 1.4 K/uL (0.0-1.0); MONOCYTES % (AUTO) 11.4 % (1.7-9.3); NEUTROPHILS # (AUTO) 8.5 K/uL (1.8-7.7); NEUTROPHILS % (AUTO) 70.7 % (40.0-70.0); PLATELET COUNT (AUTO) 174 K/uL (130-430); RED CELL DISTRIBUTION WIDTH 14.2 % (9.0-15.0); WHITE BLOOD COUNT (AUTO) 12.1 K/uL (4.8-10.8)
[2023-01-06 08:54] LABS: ANION GAP 10 (5-15); CARBON DIOXIDE 27 mmol/L (23-29); CHLORIDE 101 mmol/L (98-107); CREATININE 1.08 mg/dL (0.55-1.30); GFR AFRICAN AMERICAN 89 mL/min (>90); GLUCOSE 100 mg/dL (74-106); POTASSIUM 3.9 mmol/L (3.5-5.1); SODIUM SERUM 138 mmol/L (136-145); UREA NITROGEN, BLOOD 17 mg/dL (8-21)
[2023-01-06 08:56] LABS: GFR NON AFRICAN-AMERICAN 73 mL/min (>90)
[2023-01-06 09:01] LABS: ALANINE AMINOTRANSFERASE 15 U/L (12-78); ALBUMIN 3.9 g/dL (3.4-4.8); ASPARTATE AMINOTRANSFERASE 18 U/L (10-37); LIPASE 186 U/L (73-393); TOTAL BILIRUBIN 0.6 mg/dL (0.0-1.0); TOTAL PROTEIN, SERUM 7.6 g/dL (6.4-8.3)
[2023-01-06] MEDS ORDERED: ONDA-8 TL (09:19)
[2023-01-06 10:25] VITALS: BP_SYST 140; PULSE 78; RESP 18; TEMP 97.7; O2SAT 93
[2023-01-07] MEDS ORDERED: PRO40 PO (09:02)
== END 2023-01-06 09:50 | disposition home or self-care (01) ==
LOC: SED 07:45
DX: A08.4 Viral intestinal infection, unspecified (principal); R10.13 Epigastric pain; R11.0 Nausea; J44.9 Chronic obstructive pulmonary disease, unspecified; K21.9 Gastro-esophageal reflux disease without esophagitis; F17.200 Nicotine dependence, unspecified, uncomplicated; Z79.899 Other long term (current) drug therapy
CPT/HCPCS: 99285; 96374; 71045; 96361; 96375; 80053; 83690; 85025; 84484; 36415; 93005; J2405; J2270; J7030

== ENCOUNTER 2023-01-07 07:03 | Emergency (ER) | payer OTHER ==
[~2023-01-07] VITALS: Ht 167.6 cm; Wt 85.3 kg
[2023-01-07 07:20] VITALS: BP_SYST 148; PULSE 75; RESP 18; TEMP 98.3; O2SAT 98
[2023-01-07] MEDS ORDERED: MAG HYDROX/AL HYDROX/SIMETH 30 ML, DICYCLOMINE HCL 20 MG, LIDOCAINE VISCOUS 2% 15ML (PO... PO ONE ×3 (07:45)
[2023-01-07 07:59] LABS: BASOPHILS % (AUTO) 0.4 % (0.0-2.0); EOSINOPHILS # (AUTO) 0.1 K/uL (0.0-0.4); EOSINOPHILS % (AUTO) 1.1 % (0.0-4.0); HEMATOCRIT 45.6 % (36-54); HEMOGLOBIN 15.1 g/dL (14.0-18.0); LYMPHOCYTES # (AUTO) 1.7 K/uL (1.0-5.5); LYMPHOCYTES % (AUTO) 15.4 % (20.5-51.5); MEAN CORPUSCULAR HEMOGLOBIN 30 pg (27-31); MEAN CORPUSCULAR HGB CONC 33 % (32-36); MEAN CORPUSCULAR VOLUME 91 fL (79.0-98.0); MONOCYTES % (AUTO) 8.9 % (1.7-9.3); NEUTROPHILS # (AUTO) 8.2 K/uL (1.8-7.7); NEUTROPHILS % (AUTO) 74.2 % (40.0-70.0); PLATELET COUNT (AUTO) 146 K/uL (130-430); RED BLOOD CELL COUNT(AUTO) 5.02 MIL/uL (4.2-6.2); WHITE BLOOD COUNT (AUTO) 11.1 K/uL (4.8-10.8)
[2023-01-07 08:07] LABS: ANION GAP 12 (5-15); CARBON DIOXIDE 24 mmol/L (23-29); CHLORIDE 102 mmol/L (98-107); CREATININE 1.06 mg/dL (0.55-1.30); GFR AFRICAN AMERICAN 91 mL/min (>90); GLUCOSE 106 mg/dL (74-106); POTASSIUM 4.2 mmol/L (3.5-5.1); SODIUM SERUM 138 mmol/L (136-145); UREA NITROGEN, BLOOD 16 mg/dL (8-21)
[2023-01-07 08:09] LABS: GFR NON AFRICAN-AMERICAN 75 mL/min (>90)
[2023-01-07] MEDS ORDERED: MAG-AL HYDROX/SIMETH 30 ML UDC ONE (08:09)
[2023-01-07] MEDS ORDERED: DICYCLOMINE HCL 10 MG/5 ML SOLUTION ONE (08:09)
[2023-01-07 08:12] LABS: ALANINE AMINOTRANSFERASE 7 U/L (12-78); ALBUMIN 3.7 g/dL (3.4-4.8); ASPARTATE AMINOTRANSFERASE 22 U/L (10-37); LIPASE 195 U/L (73-393); TOTAL BILIRUBIN 0.7 mg/dL (0.0-1.0); TOTAL PROTEIN, SERUM 7.3 g/dL (6.4-8.3)
[2023-01-07 08:14] LABS: ALCOHOL, BLOOD < 3 mg/dL (<10)
[2023-01-07] MEDS ORDERED: LIDOCAINE VISCOUS 2%, 15 ML UDC ONE (08:45)
[2023-01-07] MEDS ORDERED: PRO40 PO (09:02)
[2023-01-07 09:15] VITALS: BP_SYST 142; PULSE 57; RESP 16; TEMP 97.9; O2SAT 97
== END 2023-01-07 09:15 | disposition home or self-care (01) ==
LOC: SED 07:03
DX: R10.9 Unspecified abdominal pain (principal); R11.0 Nausea; J44.9 Chronic obstructive pulmonary disease, unspecified; K21.9 Gastro-esophageal reflux disease without esophagitis; Z79.899 Other long term (current) drug therapy
CPT/HCPCS: 99283; 80053; 83690; 85025; 36415; G0482; J2001

== ENCOUNTER 2023-01-16 00:15 | Emergency (ER) | payer OTHER ==
[~2023-01-16] VITALS: Ht 167.6 cm; Wt 86.2 kg
[~2023-01-16 00:15] MED LIST changes: +DICY-14 PO; -DICY10CA13 PO; +PRO40 PO
[2023-01-16 00:19] VITALS: BP_SYST 135; PULSE 75; RESP 16; TEMP 97.6; O2SAT 97
== END 2023-01-16 00:55 | disposition left against medical advice (07) ==
LOC: SED 00:15
DX: F41.9 Anxiety disorder, unspecified (principal); M25.552 Pain in left hip; Z53.21 Procedure and treatment not carried out due to patient leaving prior to being seen by health care provider
CPT/HCPCS: 99281

== ENCOUNTER 2023-03-10 20:11 | Emergency (ER) | payer OTHER ==
[~2023-03-10] VITALS: Ht 167.6 cm; Wt 85.3 kg
[~2023-03-10 20:11] MED LIST changes: +PANT20TA2 PO; +VIS50 PO
[2023-03-10 20:28] VITALS: BP_SYST 126; PULSE 107; RESP 18; TEMP 97; O2SAT 97
[2023-03-10] MEDS ORDERED: FAMOTIDINE PF 20 MG/2 ML VIAL IVP ONE (23:00)
[2023-03-10] MEDS ORDERED: NACL 0.9% 1,000 ML IV ONE (23:00)
[2023-03-10] MEDS ORDERED: MAG-AL HYDROX/SIMETH 30 ML UDC PO ONE (23:00)
[2023-03-10] MEDS ORDERED: ONDANSETRON HCL 4 MG/2 ML VIAL IVP ONE (23:00)
[2023-03-10 23:07] LABS: BASOPHILS # (AUTO) 0.1 K/uL (0.0-0.2); BASOPHILS % (AUTO) 0.5 % (0.0-2.0); EOSINOPHILS # (AUTO) 0.3 K/uL (0.0-0.4); EOSINOPHILS % (AUTO) 2.4 % (0.0-4.0); HEMATOCRIT 39.8 % (36-54); HEMOGLOBIN 12.8 g/dL (14.0-18.0); LYMPHOCYTES # (AUTO) 2.7 K/uL (1.0-5.5); MEAN CORPUSCULAR HEMOGLOBIN 30 pg (27-31); MEAN CORPUSCULAR HGB CONC 32 % (32-36); MEAN CORPUSCULAR VOLUME 92 fL (79.0-98.0); NEUTROPHILS # (AUTO) 8.7 K/uL (1.8-7.7); NEUTROPHILS % (AUTO) 68.1 % (40.0-70.0); PLATELET COUNT (AUTO) 132 K/uL (130-430); RED BLOOD CELL COUNT(AUTO) 4.34 MIL/uL (4.2-6.2); WHITE BLOOD COUNT (AUTO) 12.8 K/uL (4.8-10.8)
[2023-03-10 23:23] LABS: ANION GAP 10 (5-15); CALCIUM 9.2 mg/dL (8.4-11.0); CARBON DIOXIDE 25 mmol/L (23-29); CHLORIDE 101 mmol/L (98-107); CREATININE 0.95 mg/dL (0.55-1.30); GFR AFRICAN AMERICAN 103 mL/min (>90); GLUCOSE 96 mg/dL (74-106); SODIUM SERUM 136 mmol/L (136-145); UREA NITROGEN, BLOOD 22 mg/dL (8-21)
[2023-03-10 23:24] LABS: GFR NON AFRICAN-AMERICAN 85 mL/min (>90)
[2023-03-10 23:28] LABS: ALANINE AMINOTRANSFERASE 16 U/L (12-78); ALBUMIN 3.5 g/dL (3.4-4.8); ASPARTATE AMINOTRANSFERASE 17 U/L (10-37); LIPASE 74 U/L (16-77); TOTAL BILIRUBIN 0.3 mg/dL (0.0-1.0); TOTAL PROTEIN, SERUM 7.2 g/dL (6.4-8.3)
[2023-03-10 23:30] LABS: ALCOHOL, BLOOD < 3 mg/dL (<10)
[2023-03-10] MEDS ORDERED: MORPHINE 2 MG/ML INJ. SYRINGE IVP ONE (23:45)
[2023-03-11] MEDS ORDERED: ONDA-8 TL (01:43)
[2023-03-11 01:44] VITALS: BP_SYST 146; PULSE 80; RESP 18; TEMP 97.8; O2SAT 96
== END 2023-03-11 01:44 | disposition home or self-care (01) ==
LOC: SED 20:11
DX: G89.29 Other chronic pain (principal); R10.9 Unspecified abdominal pain; R11.0 Nausea; R19.7 Diarrhea, unspecified; J44.9 Chronic obstructive pulmonary disease, unspecified; K21.9 Gastro-esophageal reflux disease without esophagitis; Z79.899 Other long term (current) drug therapy
CPT/HCPCS: 99284; 96374; 96375; 80053; 83690; 85025; 36415; G0482; J3490; J2405; J2270

== ENCOUNTER 2023-03-11 01:53 | Emergency (ER) | payer OTHER ==
[~2023-03-11] VITALS: Ht 167.6 cm; Wt 85.3 kg
[2023-03-11 02:10] VITALS: BP_SYST 125; PULSE 107; RESP 18; TEMP 97.8; O2SAT 97
[2023-03-11 04:18] VITALS: BP_SYST 134; PULSE 88; RESP 16; TEMP 98; O2SAT 96
== END 2023-03-11 04:15 | disposition home or self-care (01) ==
LOC: SED 01:53
DX: S76.812A Strain of other specified muscles, fascia and tendons at thigh level, left thigh, initial encounter (principal); S70.912A Unspecified superficial injury of left hip, initial encounter; J44.9 Chronic obstructive pulmonary disease, unspecified; K21.9 Gastro-esophageal reflux disease without esophagitis; Z79.899 Other long term (current) drug therapy; X58.XXXA Exposure to other specified factors, initial encounter; Y93.89 Activity, other specified; Y92.89 Other specified places as the place of occurrence of the external cause; Y99.8 Other external cause status
CPT/HCPCS: 72192-TC; 73521; 76376; 99284

== ENCOUNTER 2023-06-24 17:56 | Emergency (ER) | payer OTHER | END 2023-06-24 20:21 | disposition left against medical advice (07) | LOC: SED 17:56 | DX: F19.939 Other psychoactive substance use, unspecified with withdrawal, unspecified (principal); Z53.21 Procedure and treatment not carried out due to patient leaving prior to being seen by health care provider | CPT/HCPCS: 99281 ==

== ENCOUNTER 2023-06-26 19:40 | Emergency (ER) | payer OTHER ==
[~2023-06-26] VITALS: Ht 167.6 cm; Wt 83.9 kg
[2023-06-26 19:48] VITALS: BP_SYST 109; PULSE 86; RESP 20; TEMP 97.6; O2SAT 96
[2023-06-26 20:04] VITALS: BP_SYST 109; PULSE 86; RESP 20; TEMP 97.6; O2SAT 96
[2023-06-26] MEDS ORDERED: PANTOPRAZOLE SODIUM 40 MG/VIAL (PROTONIX) IVP ONE (22:15)
[2023-06-26] MEDS ORDERED: NACL 0.9% 1,000 ML IV ONE (22:15)
[2023-06-26] MEDS ORDERED: KETOROLAC TROMETHAMINE 30 MG VIAL IVP ONE (22:15)
== END 2023-06-26 22:40 | disposition left against medical advice (07) ==
LOC: SED 19:40
DX: M25.552 Pain in left hip (principal); G89.29 Other chronic pain; M19.90 Unspecified osteoarthritis, unspecified site; J44.9 Chronic obstructive pulmonary disease, unspecified; K21.9 Gastro-esophageal reflux disease without esophagitis; Z79.899 Other long term (current) drug therapy
CPT/HCPCS: 73521; 93005; 99283

== ENCOUNTER 2023-10-25 19:58 | Emergency (ER) | payer OTHER ==
[~2023-10-25] VITALS: Ht 167.6 cm; Wt 86.2 kg
[~2023-10-25 19:58] MED LIST changes: +CHLO25CA11 PO; -LIB25 PO
[2023-10-25 19:59] VITALS: BP_SYST 123; PULSE 124; RESP 20; TEMP 96.8; O2SAT 96
[2023-10-25 20:52] LABS: BILIRUBIN,URINE NEGATIVE (NEGATIVE); BLOOD, URINE NEGATIVE (NEGATIVE); CLARITY/URINE CLEAR (CLEAR); COLOR,URINE YELLOW (YELLOW); GLUCOSE,URINE NEGATIVE (NEGATIVE); KETONES,URINE NEGATIVE (NEGATIVE); LEUKOCYTE ESTERASE ,URINE NEGATIVE (NEGATIVE); NITRITE, URINE NEGATIVE (NEGATIVE); PH,URINE 5.5 (5.0-8.0); PROTEIN URINE NEGATIVE (NEGATIVE); UROBILINOGEN,URINE 0.2 (0.2-1.0)
[2023-10-25 20:57] LABS: BASOPHILS # (AUTO) 0.2 K/uL (0.0-0.2); EOSINOPHILS # (AUTO) 0.1 K/uL (0.0-0.4); EOSINOPHILS % (AUTO) 1.4 % (0.0-4.0); HEMOGLOBIN 14.8 g/dL (14.0-18.0); LYMPHOCYTES # (AUTO) 1.5 K/uL (1.0-5.5); LYMPHOCYTES % (AUTO) 16.3 % (20.5-51.5); MEAN CORPUSCULAR HEMOGLOBIN 31 pg (27-31); MEAN CORPUSCULAR HGB CONC 34 % (32-36); MEAN CORPUSCULAR VOLUME 91 fL (79.0-98.0); MONOCYTES # (AUTO) 0.8 K/uL (0.0-1.0); NEUTROPHILS # (AUTO) 6.4 K/uL (1.8-7.7); NEUTROPHILS % (AUTO) 71.3 % (40.0-70.0); PLATELET COUNT (AUTO) 208 K/uL (130-430); RED BLOOD CELL COUNT(AUTO) 4.75 MIL/uL (4.2-6.2); RED CELL DISTRIBUTION WIDTH 14.3 % (9.0-15.0)
[2023-10-25] MEDS: MORPHINE 4 MG INJ. 4 MG/ML VIAL IVP ONE (20:59)
[2023-10-25] MEDS: ONDANSETRON HCL 4 MG/2 ML VIAL IVP ONE (20:59)
[2023-10-25 21:13] LABS: ALANINE AMINOTRANSFERASE 19 U/L (12-78); ALBUMIN 3.8 g/dL (3.4-4.8); ANION GAP 9 (5-15); ASPARTATE AMINOTRANSFERASE 21 U/L (10-37); CALCIUM 9.3 mg/dL (8.4-11.0); CARBON DIOXIDE 27 mmol/L (23-29); CHLORIDE 102 mmol/L (98-107); CREATININE 1.13 mg/dL (0.55-1.30); GFR AFRICAN AMERICAN 84 mL/min (>90); GLUCOSE 123 mg/dL (74-106); POTASSIUM 3.8 mmol/L (3.5-5.1); SODIUM SERUM 138 mmol/L (136-145); TOTAL BILIRUBIN 0.5 mg/dL (0.0-1.0); TOTAL PROTEIN, SERUM 8.3 g/dL (6.4-8.3); UREA NITROGEN, BLOOD 12 mg/dL (8-21)
[2023-10-25 21:15] LABS: BILIRUBIN,DIRECT 0.1 mg/dL (0.0-0.3); GFR NON AFRICAN-AMERICAN 69 mL/min (>90); LIPASE 67 U/L (16-77)
[2023-10-25] MEDS: NACL 0.9% 1,000 ML IV ONE (21:59)
[2023-10-26 00:19] VITALS: BP_SYST 114; PULSE 68; RESP 18
== END 2023-10-26 00:25 | disposition home or self-care (01) ==
LOC: SED 19:58
DX: G89.29 Other chronic pain (principal); R10.13 Epigastric pain; J44.9 Chronic obstructive pulmonary disease, unspecified; K21.9 Gastro-esophageal reflux disease without esophagitis; Z98.890 Other specified postprocedural states; Z79.2 Long term (current) use of antibiotics; Z79.899 Other long term (current) drug therapy
CPT/HCPCS: 99284; 96374; 96361; 96375; 80076; 80048; 81001; 83690; 85025; 84484; 36415; 93005; J2405; J2270; J7030; 81003

== ENCOUNTER 2023-10-30 05:44 | Emergency (ER) | payer OTHER ==
[~2023-10-30] VITALS: Ht 167.6 cm; Wt 90.7 kg
[2023-10-30 05:49] VITALS: BP_SYST 105; PULSE 170; RESP 16; TEMP 98; O2SAT 98
[2023-10-30] MEDS: NS 500 ML IV ONE (06:39)
[2023-10-30 06:46] LABS: BASOPHILS # (AUTO) 0.1 K/uL (0.0-0.2); BASOPHILS % (AUTO) 0.8 % (0.0-2.0); EOSINOPHILS # (AUTO) 0.3 K/uL (0.0-0.4); EOSINOPHILS % (AUTO) 3.3 % (0.0-4.0); HEMATOCRIT 42.2 % (36-54); HEMOGLOBIN 14.2 g/dL (14.0-18.0); LYMPHOCYTES # (AUTO) 2.4 K/uL (1.0-5.5); LYMPHOCYTES % (AUTO) 27.7 % (20.5-51.5); MEAN CORPUSCULAR HEMOGLOBIN 31 pg (27-31); MEAN CORPUSCULAR HGB CONC 34 % (32-36); MEAN CORPUSCULAR VOLUME 91 fL (79.0-98.0); MONOCYTES # (AUTO) 0.8 K/uL (0.0-1.0); MONOCYTES % (AUTO) 9.3 % (1.7-9.3); NEUTROPHILS % (AUTO) 58.9 % (40.0-70.0); PLATELET COUNT (AUTO) 221 K/uL (130-430); RED BLOOD CELL COUNT(AUTO) 4.63 MIL/uL (4.2-6.2); WHITE BLOOD COUNT (AUTO) 8.5 K/uL (4.8-10.8)
[2023-10-30 07:18] LABS: ANION GAP 10 (5-15); CALCIUM 9.2 mg/dL (8.4-11.0); CARBON DIOXIDE 25 mmol/L (23-29); CHLORIDE 108 mmol/L (98-107); CREATININE 0.99 mg/dL (0.55-1.30); GFR AFRICAN AMERICAN 98 mL/min (>90); GLUCOSE 148 mg/dL (74-106); PHOSPHORUS 2.6 mg/dL (2.7-4.5); POTASSIUM 3.8 mmol/L (3.5-5.1); SODIUM SERUM 143 mmol/L (136-145); UREA NITROGEN, BLOOD 13 mg/dL (8-21)
[2023-10-30 07:33] LABS: GFR NON AFRICAN-AMERICAN 81 mL/min (>90)
[2023-10-30] MEDS: OXYCODONE/ACETAMINOPHEN 5-325 TABLET PO ONE (07:52)
[2023-10-30 08:01] VITALS: BP_SYST 148; PULSE 170; RESP 16; TEMP 98; O2SAT 98
== END 2023-10-30 08:02 | disposition home or self-care (01) ==
LOC: SED 05:44
DX: R00.2 Palpitations (principal); R00.0 Tachycardia, unspecified; R06.02 Shortness of breath; J44.9 Chronic obstructive pulmonary disease, unspecified; K21.9 Gastro-esophageal reflux disease without esophagitis; Z79.899 Other long term (current) drug therapy; Z79.2 Long term (current) use of antibiotics
CPT/HCPCS: 36415; 80048; 83735; 84100; 84484; 85025; 93005; 99284

== ENCOUNTER 2024-02-20 16:52 | Emergency (ER) | payer OTHER ==
[~2024-02-20] VITALS: Ht 167.6 cm; Wt 88.5 kg
[2024-02-20 17:20] VITALS: BP_SYST 130; PULSE 73; RESP 16; TEMP 96.9; O2SAT 95
[2024-02-20 17:56] LABS: BILIRUBIN,URINE NEGATIVE (NEGATIVE); BLOOD, URINE NEGATIVE (NEGATIVE); CLARITY/URINE CLEAR (CLEAR); COLOR,URINE YELLOW (YELLOW); GLUCOSE,URINE NEGATIVE (NEGATIVE); KETONES,URINE NEGATIVE (NEGATIVE); LEUKOCYTE ESTERASE ,URINE NEGATIVE (NEGATIVE); NITRITE, URINE NEGATIVE (NEGATIVE); PROTEIN URINE NEGATIVE (NEGATIVE); UROBILINOGEN,URINE 0.2 (0.2-1.0)
[2024-02-20 18:07] LABS: BASOPHILS # (AUTO) 0.1 K/uL (0.0-0.2); BASOPHILS % (AUTO) 0.5 % (0.0-2.0); EOSINOPHILS # (AUTO) 0.3 K/uL (0.0-0.4); EOSINOPHILS % (AUTO) 2.9 % (0.0-4.0); HEMATOCRIT 41.6 % (36-54); HEMOGLOBIN 14.3 g/dL (14.0-18.0); LYMPHOCYTES # (AUTO) 2.1 K/uL (1.0-5.5); LYMPHOCYTES % (AUTO) 21.9 % (20.5-51.5); MEAN CORPUSCULAR HEMOGLOBIN 30 pg (27-31); MEAN CORPUSCULAR HGB CONC 34 % (32-36); MEAN CORPUSCULAR VOLUME 89 fL (79.0-98.0); MONOCYTES % (AUTO) 10.2 % (1.7-9.3); NEUTROPHILS # (AUTO) 6.1 K/uL (1.8-7.7); NEUTROPHILS % (AUTO) 64.5 % (40.0-70.0); PLATELET COUNT (AUTO) 224 K/uL (130-430); RED BLOOD CELL COUNT(AUTO) 4.69 MIL/uL (4.2-6.2); RED CELL DISTRIBUTION WIDTH 12.8 % (9.0-15.0); WHITE BLOOD COUNT (AUTO) 9.5 K/uL (4.8-10.8)
[2024-02-20 18:29] LABS: PROTHROMBIN TIME 10.4 SECS (9.5-12.5)
[2024-02-20 18:45] LABS: ALANINE AMINOTRANSFERASE 20 U/L (12-78); ALBUMIN 3.8 g/dL (3.4-4.8); ANION GAP 7 (5-15); ASPARTATE AMINOTRANSFERASE 23 U/L (10-37); CALCIUM 9.3 mg/dL (8.4-11.0); CARBON DIOXIDE 30 mmol/L (23-29); CHLORIDE 104 mmol/L (98-107); GFR AFRICAN AMERICAN 71 mL/min (>90); GLUCOSE 95 mg/dL (74-106); POTASSIUM 4.9 mmol/L (3.5-5.1); SODIUM SERUM 141 mmol/L (136-145); TOTAL BILIRUBIN 0.6 mg/dL (0.0-1.0); TOTAL PROTEIN, SERUM 7.9 g/dL (6.4-8.3); UREA NITROGEN, BLOOD 13 mg/dL (8-21)
[2024-02-20 18:49] LABS: GFR NON AFRICAN-AMERICAN 59 mL/min (>90)
[2024-02-20 18:55] LABS: AMYLASE 58 U/L (0-100); BILIRUBIN,DIRECT 0.1 mg/dL (0.0-0.3); LIPASE 56 U/L (16-77)
[2024-02-20 19:04] LABS: ACETONE, SERUM NEGATIVE (NEGATIVE)
[2024-02-20] MEDS ORDERED: ACET325T PO (20:13)
[2024-02-20] MEDS ORDERED: METH-634 PO (20:13)
[2024-02-20] MEDS ORDERED: METO50TA7 PO (20:13)
[2024-02-20] MEDS ORDERED: OXYC-875 (20:13)
[2024-02-20] MEDS ORDERED: SUCR1TAB2 PO (20:13)
[2024-02-20] MEDS: MORPHINE 4 MG INJ. 4 MG/ML VIAL IM ONE (20:47)
[2024-02-20] MEDS: ONDANSETRON 4 MG ODT TAB PO ONE (20:54)
[2024-02-20] MEDS ORDERED: ONDANSETRON 4 MG ODT TAB ONE (20:57)
[2024-02-20 21:41] VITALS: PULSE 62; RESP 18; TEMP 98.1; O2SAT 97
[2024-02-20 21:45] VITALS: BP_SYST 131
== END 2024-02-20 21:45 | disposition home or self-care (01) ==
LOC: SED 16:52
DX: R10.84 Generalized abdominal pain (principal); R19.7 Diarrhea, unspecified; R11.0 Nausea; J44.9 Chronic obstructive pulmonary disease, unspecified; K86.1 Other chronic pancreatitis; K74.60 Unspecified cirrhosis of liver; K21.9 Gastro-esophageal reflux disease without esophagitis; G47.30 Sleep apnea, unspecified; Z79.899 Other long term (current) drug therapy
CPT/HCPCS: 99283; 80076; 80048; 82009; 82150; 83690; 85025; 85610; 85730; 36415; 96372; 83605; 82397; 81003; 81001; G0482; Q0162; J2270